=== PATIENT | female | born 1960 | race Caucasian/White ===

== ENCOUNTER 2018-04-26 16:13 | Emergency (ER) | payer MEDICARE, MEDICAID, SELFPAY ==
[2018-04-26 16:16] VITALS: BP 153/92; PULSE 95; RESP 18; TEMP 37; O2SAT 98
--- NOTE | 2018-04-26 16:39 | NUR.NOTE ---
Nursing Note: Attempted to reconcile patients medications - patient does not have list and does not recall rest of medications.
--- NOTE | 2018-04-26 17:15 | W.ED.GENAD ---
Discharge Plan Disposition Patient Disposition: HOME Condition: Improving Discharge Details Chief Complaint: HeadInjury Clinical Impression: Minor closed head injury, Contusion of multiple sites Primary Care Provider: Maylin Garcia ED Provider: Teofilo Ace Home Meds and New Rx's Prescriptions: Continue aspirin 81 mg Tablet,Chewable 1 tab PO DAILY RF: 0 lisinopril 2.5 mg Tablet 1 tab PO DAILY RF: 0 duloxetine [Cymbalta] 60 mg Capsule,Delayed Release(Dr/Ec) 1 tab PO DAILY RF: 0 Discharge Instructions Instructions: Head Injury (ED), Contusion in Adults (ED) Additional Instructions: He may continue to take [id number] Tylenol as needed for pain control and feel free to return immediately for any new or worsening symptoms. Otherwise follow-up with your primary care provider if not improving over the next 1-2 weeks Referrals: Maylin Garcia [Primary Care Provider] - (If not improving in the next 1-2 weeks please follow-up with your primary care provider for reassessment) Discharge Data Discharge Date/Time-TO BE ENTERED AT DEPARTURE: 04/26/18 18:53 Medical Decision Making MDM Narrative Medical decision making narrative: Patient presenting to the emergency department status post fall down one step. Patient states that she attempted to catch herself and landed on her left hip and hit her head during the fall. Patient denies any loss of consciousness, vomiting, vision change, numbness or tingling. She does state some lower extremity discomfort. Patient denies any chest pain syncope palpitations or shortness of breath. Physical exam is unremarkable for any head trauma, C-spine injury, chest abdomen or upper extremity injury there is concern for some significant tenderness to palpation of the left hip so plan on doing radiological imaging of the hip and pelvis but more suspect soft tissue injury/contusion. Using [place] head CT rule patient does not require CT imaging of the head which correlates with my clinical gestalt. Pending results of hip and pelvis imaging patient given Tylenol 3. After review of radiological imaging that shows no acute findings I feel the patient is suffering from closed head injury, and multiple contusions. Reassess patient patient had no significant worsening of symptoms and did state some improvement of her pain and discomfort. Patient was encouraged to return for any new or worsening symptoms otherwise follow-up with her primary care provider if not improving over the next 1-2 weeks after discussion of diagnosis plan of care patient she states over the knees, question or concerns at this time. HPI - General Adult General Mode of arrival: EMS. Date/Time Provider Initiated Documentation: 04/26/18 16:39. Limitations to Documentation: no limitations. Information obtained by: patient. History of Present Illness 57 year old F presents to the emergency department with the chief complaint of fall/headache, described as moderate, with intensity rated at 8. Quality is described as aching and sharp, and is localized to the head. Patient reports no radiation. Patient started experiencing this minute(s) (30) and it has been constant. No relieving factors improve symptom(s), No exacerbating factors reported . Patient notes no other symptoms.. Patient did receive the following treatments prior to arrival, none Related Data Home Medications Medication Instructions Recorded Confirmed aspirin 1 tab PO DAILY 04/26/18 04/26/18 duloxetine [Cymbalta] 1 tab PO DAILY 04/26/18 04/26/18 lisinopril 1 tab PO DAILY 04/26/18 04/26/18 Allergies Allergy/AdvReac Type Severity Reaction Status Date / Time amitriptyline Allergy Unverified 04/26/18 16:35 amoxicillin [From Augmentin] Allergy Unverified 04/26/18 16:35 clavulanic acid Allergy Unverified 04/26/18 16:35 [From Augmentin] Penicillins Allergy Unverified 04/26/18 16:35 Sulfa (Sulfonamide Allergy Unverified 04/26/18 16:35 Antibiotics) NSAIDS (Non-Steroidal AdvReac Unverified 04/26/18 16:35 Anti-Inflamma General Stated Complaint: HeadInjury SADE: 3 Review of Systems Constitutional Denies lethargy Eyes Patient Denies blind spots, Denies blurry vision and Denies change in vision ENT Denies vertigo, Denies dizziness, Denies ear discharge, Denies epistaxis and Denies nasal trauma Cardiovascular Denies chest pain, Denies syncope and Denies dyspnea Respiratory Denies dyspnea Gastrointestinal Denies nausea and Denies vomiting Musculoskeletal Reports radiating pain into limb (left leg) Neurologic Denies confusion, Denies vertigo, Denies dizziness and Denies syncope Psychiatric Denies confusion [facility] Medical History Diabetes (Chronic) Hypertension (Chronic) Renal insufficiency (Chronic) Social History Smoking/Tobacco Use Status: Current every day Exam [facility] Head: normal to inspection, no palpable skull fracture, normocephalic, atraumatic, no abrasions, no Gates's sign, no contusions, no hematomas, no palpable skull fracture, no raccoon eyes and no scalp tenderness Ears: hearing grossly normal bilaterally General nose exam: external nose normal Face and sinus: normal facial exam Mouth: oral mucosae normal Throat: posterior oropharynx normal Eyes General: appearance normal, both eyes and all related structures Pupils: PERRL EOM: EOM intact bilaterally Neck Neck: normal visual inspection, full ROM and nontender Chest Chest: normal inspection of the chest Resp Effort & Inspection: normal respiratory effort, able to speak in complete sentences and no respiratory distress Auscultation: clear to auscultation bilaterally and lung sounds not diminished Cardio Rate: regular rate Rhythm: regular rhythm and regular rhythm Heart Sounds: S2 normal Extrem Left lower extremity: hip/thigh Details: tenderness Location: of the hip Location: laterally, knee Details: normal to inspection and normal ROM; no tenderness, lower leg Details: normal to inspection; no tenderness and ankle Details: normal to inspection; no tenderness; abnormal ROM (Mildly decreased flexion of the hip otherwise under my equal) Course Vital Signs Temperature 37.0 C 04/26/18 16:16 Pulse 95 H 04/26/18 16:16 Respiratory Rate 18 04/26/18 16:16 Blood Pressure 153/92 H 04/26/18 16:16 Pulse Oximetry 98 04/26/18 16:16 Temperature 37.0 C 04/26/18 16:16 Pulse 95 H 04/26/18 16:16 Respiratory Rate 18 04/26/18 16:16 Blood Pressure 153/92 H 04/26/18 16:16 Pulse Oximetry 98 04/26/18 16:16
--- NOTE | 2018-04-26 17:20 | DI.RAD_ITS ---
SYMPTOMS/DIAGNOSIS: HIP PAIN S/P FALL PELVIS AND LEFT HIP: No fracture or dislocation is seen. There are mild degenerative changes of both hips. There are degenerative changes of the right SI joint. IMPRESSION: Degenerative changes. No acute abnormality.
--- NOTE | 2018-04-26 17:21 | ED.GENADUL_ITS ---
Discharge Plan Disposition Patient Disposition: HOME Condition: Improving Discharge Details Chief Complaint: HeadInjury Clinical Impression: Minor closed head injury, Contusion of multiple sites Primary Care Provider: Maylin Garcia ED Provider: Teofilo Ace Home Meds and New Rx's Prescriptions: Continue aspirin 81 mg Tablet,Chewable 1 tab PO DAILY RF: 0 lisinopril 2.5 mg Tablet 1 tab PO DAILY RF: 0 duloxetine [Cymbalta] 60 mg Capsule,Delayed Release(Dr/Ec) 1 tab PO DAILY RF: 0 Discharge Instructions Instructions: Head Injury (ED), Contusion in Adults (ED) Additional Instructions: He may continue to take [id number] Tylenol as needed for pain control and feel free to return immediately for any new or worsening symptoms. Otherwise follow-up with your primary care provider if not improving over the next 1-2 weeks Referrals: Maylin Garcia [Primary Care Provider] - (If not improving in the next 1-2 weeks please follow-up with your primary care provider for reassessment) Discharge Data Discharge Date/Time-TO BE ENTERED AT DEPARTURE: 04/26/18 18:53 Medical Decision Making MDM Narrative Medical decision making narrative: Patient presenting to the emergency department status post fall down one step. Patient states that she attempted to catch herself and landed on her left hip and hit her head during the fall. Patient denies any loss of consciousness, vomiting, vision change, numbness or tingling. She does state some lower extremity discomfort. Patient denies any chest pain syncope palpitations or shortness of breath. Physical exam is unremarkable for any head trauma, C-spine injury, chest abdomen or upper extremity injury there is concern for some significant tenderness to palpation of the left hip so plan on doing radiological imaging of the hip and pelvis but more suspect soft tissue injury/contusion. Using [place] head CT rule patient does not require CT imaging of the head which correlates with my clinical gestalt. Pending results of hip and pelvis imaging patient given Tylenol 3. After review of radiological imaging that shows no acute findings I feel the patient is suffering from closed head injury, and multiple contusions. Reassess patient patient had no significant worsening of symptoms and did state some improvement of her pain and discomfort. Patient was encouraged to return for any new or worsening symptoms otherwise follow-up with her primary care provider if not improving over the next 1-2 weeks after discussion of diagnosis plan of care patient she states over the knees, question or concerns at this time. HPI - General Adult General Mode of arrival: EMS . Date/Time Provider Initiated Documentation: 04/26/18 16:39 . Limitations to Documentation: no limitations . Information obtained by: patient . History of Present Illness 57 year old F presents to the emergency department with the chief complaint of fall/headache, described as moderate, with intensity rated at 8. Quality is described as aching and sharp, and is localized to the head. Patient reports no radiation. Patient started experiencing this minute(s) (30) and it has been constant. No relieving factors improve symptom(s), No exacerbating factors reported . Patient notes no other symptoms.. Patient did receive the following treatments prior to arrival, none Related Data Home Medications Medication Instructions Recorded Confirmed aspirin 1 tab PO DAILY 04/26/18 04/26/18 duloxetine [Cymbalta] 1 tab PO DAILY 04/26/18 04/26/18 lisinopril 1 tab PO DAILY 04/26/18 04/26/18 Allergies Allergy/AdvReac Type Severity Reaction Status Date / Time amitriptyline Allergy Unverified 04/26/18 16:35 amoxicillin [From Augmentin] Allergy Unverified 04/26/18 16:35 clavulanic acid Allergy Unverified 04/26/18 16:35 [From Augmentin] Penicillins Allergy Unverified 04/26/18 16:35 Sulfa (Sulfonamide Allergy Unverified 04/26/18 16:35 Antibiotics) NSAIDS (Non-Steroidal AdvReac Unverified 04/26/18 16:35 Anti-Inflamma General Stated Complaint: HeadInjury SADE: 3 Review of Systems Constitutional Denies lethargy Eyes Patient Denies blind spots, Denies blurry vision and Denies change in vision ENT Denies vertigo, Denies dizziness, Denies ear discharge, Denies epistaxis and Denies nasal trauma Cardiovascular Denies chest pain, Denies syncope and Denies dyspnea Respiratory Denies dyspnea Gastrointestinal Denies nausea and Denies vomiting Musculoskeletal Reports radiating pain into limb (left leg) Neurologic Denies confusion, Denies vertigo, Denies dizziness and Denies syncope Psychiatric Denies confusion [facility] Medical History Diabetes (Chronic) Hypertension (Chronic) Renal insufficiency (Chronic) Social History Smoking/Tobacco Use Status: Current every day Exam [facility] [place] Head: normal to inspection, no palpable skull fracture, normocephalic, atraumatic, no abrasions, no Gates's sign, no contusions, no hematomas, no palpable skull fracture, no raccoon eyes and no scalp tenderness Ears: hearing grossly normal bilaterally General nose exam: external nose normal Face and sinus: normal facial exam Mouth: oral mucosae normal Throat: posterior oropharynx normal Eyes General: appearance normal, both eyes and all related structures Pupils: PERRL EOM: EOM intact bilaterally Neck Neck: normal visual inspection, full ROM and nontender Chest Chest: normal inspection of the chest Resp Effort & Inspection: normal respiratory effort, able to speak in complete sentences and no respiratory distress Auscultation: clear to auscultation bilaterally and lung sounds not diminished Cardio Rate: regular rate Rhythm: regular rhythm and regular rhythm Heart Sounds: S2 normal Extrem Left lower extremity: hip/thigh Details: tenderness Location: of the hip Location: laterally, knee Details: normal to inspection and normal ROM; no tenderness, lower leg Details: normal to inspection; no tenderness and ankle Details: normal to inspection; no tenderness; abnormal ROM (Mildly decreased flexion of the hip otherwise under my equal) Course Vital Signs Temperature 37.0 C 04/26/18 16:16 Pulse 95 H 04/26/18 16:16 Respiratory Rate 18 04/26/18 16:16 Blood Pressure 153/92 H 04/26/18 16:16 Pulse Oximetry 98 04/26/18 16:16 Temperature 37.0 C 04/26/18 16:16 Pulse 95 H 04/26/18 16:16 Respiratory Rate 18 04/26/18 16:16 Blood Pressure 153/92 H 04/26/18 16:16 Pulse Oximetry 98 04/26/18 16:16
--- NOTE | 2018-04-26 17:45 | DI.VRAD_ITS ---
EXAM: XR Left Hip with Pelvis when Performed, 2 or 3 Views EXAM DATE/TIME: 04/26/2018 4:57 PM CLINICAL HISTORY: 57 years old, female; Signs and symptoms; Other: Fall, hip pain TECHNIQUE: XR Left hip with pelvis when performed, 2 or 3 views COMPARISON: No relevant prior studies available. FINDINGS: Bones/joints: Normal. No acute fracture. Soft tissues: Normal. Vasculature: Multiple pelvic phleboliths are identified. IMPRESSION: No acute findings are detected. Dictated and Authenticated by: Jovany Davalos MD. Ordering:SOFIA ISLAS MD
[2018-04-26 18:54] VITALS: BP 153/92; PULSE 95; RESP 18; TEMP 37; O2SAT 98
== END 2018-04-26 18:53 | disposition home or self-care (01) ==
PROVIDERS: Emergency Provider Nurse Practitioner Family; PCP Nurse Practitioner Family
DX: S09.8XXA Other specified injuries of head, initial encounter (principal); S70.02XA Contusion of left hip, initial encounter; W10.8XXA Fall (on) (from) other stairs and steps, initial encounter; I10 Essential (primary) hypertension; E11.9 Type 2 diabetes mellitus without complications
CPT/HCPCS: 99284; 73502

== ENCOUNTER 2018-05-10 16:25 | Emergency (ER) | payer MEDICARE, MEDICAID, SELFPAY ==
[2018-05-10 16:53] VITALS: BP 155/97; PULSE 98; RESP 16; TEMP 36.4; O2SAT 99
--- NOTE | 2018-05-10 18:20 | ED.GENADUL_ITS ---
Discharge Plan Disposition Patient Disposition: HOME Condition: Good Discharge Details Chief Complaint: Nk/Back Pain Clinical Impression: Hypomagnesemia Primary Care Provider: Maylin Garcia ED Provider: Mrutaza Lamas Home Meds and New Rx's Prescriptions: New magnesium oxide 250 mg tablet 250 mg PO DAILY Qty: 7 RF: 0 Continue aspirin 81 mg Tablet,Chewable 1 tab PO DAILY RF: 0 lisinopril 2.5 mg Tablet 1 tab PO DAILY RF: 0 duloxetine [Cymbalta] 60 mg Capsule,Delayed Release(Dr/Ec) 1 tab PO DAILY RF: 0 atorvastatin 40 mg Tablet 1 tab PO DAILY RF: 0 bupropion HCl 150 mg Tablet Extended Release 12 Hr 150 mg PO BID RF: 0 fexofenadine 180 mg Tablet 180 mg PO DAILY RF: 0 insulin aspart U-100 [Novolog PenFill U-100 Insulin] 100 unit/mL Cartridge 40 unit subcut DAILY RF: 0 insulin glargine [Basaglar KwikPen U-100 Insulin] 100 unit/mL (3 mL) Insulin Pen 40 unit subcut DAILY RF: 0 dexlansoprazole [Dexilant] 60 mg Capsule,Biphase Delayed Releas 1 tab PO DAILY RF: 0 Discharge Instructions Instructions: Hypomagnesemia (ED) Additional Instructions: Follow-up with Idalmis Garcia this week for recheck. Call for an appointment time. Continue all regularly prescribed medications. Return to the emergency department for any acute concerns Discharge Data Discharge Date/Time-TO BE ENTERED AT DEPARTURE: 05/11/18 02:32 Medical Decision Making <WHIT [place] - Last Filed: 05/22/18 20:43> [facility] Narrative Medical decision making narrative: Patient presents with cc of HERNANDEZ and right SI joint pain. She reports that the HERNANDEZ has waxed and waned since fall 12 days ago. He was evaluated here, I reviewed ER notes from that time. On exam, her neuro exam is intact. She appears chronically unwell. She has history of DM and stage III CKD. States that she does not take NSAIDS secondary to the affect they have had on her CKD. Was advised to use Tylenol. Has not taken any today. On exam, the SI joint is point of maximal pain with palpable muscle spasm. Will give Tylenol and apply Lidoderm patch. With the chronicity of her HERNANDEZ as well as the waxing and waning symptoms, I do not suspect bleed. No sudden onset or change in symptoms. Patient is not anticoagulated. She is also endorsing generalized feeling of unwell and weakness. No focal area of weakness was noted on exam. Will obtain base line laboratory evaluation. Labs significant for magnesium of 1.1. She reports that she has history of low magnesium, associated with her CKD, and takes daily oral magnesium supplementation. When I re-evaluated the patient, she is now endorsing tingling that was occuring prior to her arrival. When I had first evaluated her, she was not endorsing any altered sensation. However, she is now stating that she had tingling fairly diffusely, worse on the right side. Reports that this lasted for several hours today but subsided prior to her presentation, states she forgot to discuss this initially. Discussed case with Dr. Baker. He advised admission for low magnesium. Discussed case with Dr. Saenz. He was able to show literature regarding admission for low magnesium. As she does not exibit cardiac pathology, has not had any seizure pathology and her associated symtpoms have since resolved, he advised replenishing magnesium and discharging the patient. Advised 4G of IV magnesium here followed by 800mg QD. Advised follow up for recheck within the next 48hours to be follow by PCP. Patient is receiving IV hydration, 4G of IVmagnesium. At the end of my shift, patient is receiving above. Discussed case with Dr. Lamas who will assume care. <Murtaza Lamas MD - Last Filed: 05/11/18 02:09> [facility] Narrative Medical decision making narrative: Received signout from Ms. Fields. Please see her note regarding details of the initial history, presentation, exam and plan of care. Patient observed over approximately 10 hours in the emergency department with magnesium supplementation. She is stable and improved. Appropriate for discharge to home HPI - General Adult <WHIT [place] - Last Filed: 05/22/18 20:43> General Mode of arrival: ambulatory . Date/Time Provider Initiated Documentation: 05/10/18 17:56 . Limitations to Documentation: no limitations . Information obtained by: patient . HPI Narrative: Patient is a 57-year-old female presenting today with multiple complaints. Patient was seen here on 04/26/18 after fall. At that time, the patient reports that she misstepped and fell down one step. Reports that she struck the front of her head. Also was complaining of right-sided hip pain at that time. States that what she had initially been improving, her headache and right posterior hip pain returned again yesterday. Since that time she has been feeling weak. Denies any chest pain or shortness of breath. States that her headache has waxed and waned since her initial fall. She denies any visual changes. Patient reports that since having cataract surgery a few years ago her pupils are no longer reactive to light stimuli. She denies any fevers or chills. No nausea or vomiting. No GI upset. No change in bowel or bladder habits. Denies any sensation deficits in her lower extremities. Feels like she is having a global discomfort and global weakness. Reports that she is unable to take anti-inflammatory secondary to her kidney dysfunction. Has been using Tylenol with minimal relief. Has not been seen as of yet by her primary care physician since her fall. Related Data Home Medications Medication Instructions Recorded Confirmed aspirin 1 tab PO DAILY 04/26/18 05/10/18 duloxetine [Cymbalta] 1 tab PO DAILY 04/26/18 05/10/18 lisinopril 1 tab PO DAILY 04/26/18 05/10/18 atorvastatin 1 tab PO DAILY 05/10/18 05/10/18 bupropion HCl 150 mg PO BID 05/10/18 05/10/18 dexlansoprazole [Dexilant] 1 tab PO DAILY 05/10/18 05/10/18 fexofenadine 180 mg PO DAILY 05/10/18 05/10/18 insulin aspart U-100 [Novolog 40 unit SUBCUT DAILY 05/10/18 05/10/18 PenFill U-100 Insulin] insulin glargine [Basaglar KwikPen 40 unit SUBCUT DAILY 05/10/18 05/10/18 U-100 Insulin] magnesium oxide 250 mg PO DAILY #7 tab 05/11/18 Previous Rx's Medication Instructions Recorded magnesium oxide 250 mg PO DAILY #7 tab 05/11/18 Allergies Allergy/AdvReac Type Severity Reaction Status Date / Time amitriptyline Allergy Unverified 05/10/18 16:57 amoxicillin [From Augmentin] Allergy Unverified 05/10/18 16:57 clavulanic acid Allergy Unverified 05/10/18 16:57 [From Augmentin] Penicillins Allergy Unverified 05/10/18 16:57 Sulfa (Sulfonamide Allergy Unverified 05/10/18 16:57 Antibiotics) NSAIDS (Non-Steroidal AdvReac Unverified 05/10/18 16:57 Anti-Inflamma General Stated Complaint: Nk/Back Pain SADE: 3 Review of Systems <WHIT [place] Last Filed: 05/22/18 20:43> Constitutional Reports as per HPI, Reports body ache(s), Denies chills, Reports fatigue, Denies fever(s), Denies frequent falls, Reports headache(s) and Denies poor appetite Eyes Patient Denies blurry vision and Denies change in vision ENT Reports headache(s) Cardiovascular Denies chest pain, Denies chest pain at rest, Denies chest pain with activity, Denies irregular heart rhythm, Denies lightheadedness, Denies dyspnea and Denies dyspnea on exertion Respiratory Denies cough, Denies dyspnea and Denies dyspnea on exertion Gastrointestinal Denies change in bowel habits, Denies fecal incontinence and Denies nausea Genitourinary Reports system reviewed and no additional complaints, except as docu (no change in urinary habits) and Denies urinary incontinence Musculoskeletal Reports as per HPI, Reports abnormal gait (patient ambulates with cane at baseline), Denies joint swelling, Reports muscle cramps (right lower back pain ) , Denies muscle weakness, Denies numbness, Denies radiating pain into limb and Denies tingling Integumentary/Breasts Denies rash Neurologic Reports as per HPI, Denies abnormal movements, Denies abnormal speech, Reports abnormal gait (patient ambulates with cane at baseline), Denies frequent falls, Reports headache(s), Denies numbness, Denies radicular pain, Denies sensory deficit, Denies tingling and Denies paresthesias Endocrine Reports fatigue Exam <WHIT [place] - Last Filed: 05/22/18 20:43> Const General: cooperative, no acute distress and frail appearing Nutritional Appearance: overweight Orientation: alert and awake Eyes General: appearance normal, both eyes and all related structures (patient has no pupillary reflex but she reports this is typical and associates with post surgical changes) Resp Effort & Inspection: normal respiratory effort, able to speak in complete sentences and no respiratory distress Auscultation: clear to auscultation bilaterally Cardio Rate: regular rate Rhythm: regular rhythm Heart Sounds: S1 normal and S2 normal Back/Spine/Pelvis Back: no CVA tenderness Thoracic/Lumbar Spine: No thoracic and lumbar spine normal to inspection ( Patient has discomfort near L4, she reports this is chronic. Pain is maximal over the right SI joint. Palpable muscle spasm over this area. No ecchymosis, discoloration. No step off palpable. ) Pelvis: no pain with anterior-posterior compression Sacroiliac joints: on the right Sacrum: no ecchymosis and no erythema Skin General skin exam: no rashes or lesions noted Neuro General: alert, awake, oriented x3 and no meningeal signs Cranial Nerves: CN's II-XI intact bilaterally (pupillary deficit as noted above) Cognition: normal cognition Speech: speech normal Gait: gait assisted (patient ambulating with cane) Motor: muscle tone normal throughout, strength 5/5 throughout and no fasciculations Sensory Exam: no sensory deficits noted (no saddle paresthesias) DTR's: Rt Patellar: 2+, Lt Patellar: 2+, Rt Ankle: 1+ and Lt Ankle: 1+ Coordination: [id number] test normal and [id number] test normal (patient is slow to do this but is able to do so, equal bilaterally) Extrem General: normal to inspection Course <WHIT [place] - Last Filed: 05/22/18 20:43> Vital Signs Temperature 36.4 C L 05/10/18 16:53 Pulse 98 H 05/10/18 16:53 Respiratory Rate 16 05/10/18 16:53 Blood Pressure 155/97 H 05/10/18 16:53 Pulse Oximetry 99 05/10/18 16:53 Temperature 36.4 C L 05/10/18 16:53 Pulse 98 H 05/10/18 16:53 Respiratory Rate 16 05/10/18 16:53 Blood Pressure 155/97 H 05/10/18 16:53 Pulse Oximetry 99 05/10/18 16:53 Sign Out <WHIT [place] - Last Filed: 05/22/18 20:43> Sign Out Data: Sign Out Comment: Magnesium replenishment pending. Care signed out to Dr. Lamas. Last updated by Harini Fields PA at 05/10/18 23:20
[2018-05-10 19:03] LABS: Abs Immature Grans 0.02 k/cumm (0.0-0.09); Absolute Basophil Count 0.05 k/cumm (0.0-0.2); Absolute Eosinophil Count 0.14 k/cumm (0.0-0.7); Absolute Lymphocyte Count 2.65 k/cumm (1.2-3.4); Absolute Monocyte Count 0.42 k/cumm (0.11-0.7); Absolute Neutrophil Count 3.69 k/cumm (1.2-6.7); Basophils % 0.7; HCT 34.9 % (36.0-46.0); HGB 12.1 g/dL (12.0-15.5); Immature Grans % 0.3; Mean Corp. HGB Concentration 34.7 g/dL (32.0-36.0); Mean Corpuscular Hemoglobin 31.3 pg (27.0-33.0); Mean Corpuscular Volume 90.4 fL (80-95); Mean Platelet Volume 9.9 fL (8.0-11.0); Platelet Count 270 x1000/uL (130-400); RBC 3.86 m/cumm (4.00-5.20); RBC Distribution Width 12.8 % (11.7-14.6); White Blood Cell Count 6.97 k/cumm (4.4-10.8)
[2018-05-10] MEDS: Acetaminophen 500 MG TAB 1000 MG PO (19:18)
[2018-05-10] MEDS: Lidocaine 5% Patch 1 PATCH TP (19:18)
[2018-05-10 19:40] LABS: ALT 19 U/L (12-78); AST 15 U/L (15-37); Albumin 3.3 g/dL (3.4-5.0); Alkaline Phosphatase 100 U/L (46-116); Anion Gap 9.4 mmol/L (3-11); BUN 29 mg/dL (7-18); Bilirubin, Total 0.3 mg/dL (0.2-1.0); CO2 26.6 mmol/L (21.0-32.0); CREATININE 1.42 mg/dL (0.55-1.02); Calcium 8.7 mg/dL (8.5-10.1); Chloride 108 mmol/L (98-107); Estimated GFR 38.13 (mL/min/1.73m2); Glucose 75 mg/dL (70-100); Magnesium 1.1 mg/dL (1.8-2.4); Potassium 3.9 mmol/L (3.5-5.1); Sodium 144 mmol/L (136-145); Total Protein 7.5 g/dL (6.4-8.2)
[2018-05-10 19:41] LABS: Troponin I < 0.02 ng/mL (0.00-0.06)
[2018-05-10 20:25] VITALS: PULSE 90; RESP 18; TEMP 36.5; O2SAT 98
[2018-05-10 21:50] VITALS: BP 139/77; PULSE 85; RESP 18; O2SAT 99
[2018-05-10] MEDS: MAGNESIUM SULFATE 2 GM/50 ML BAG IVPB ×2 (21:51→23:51)
[2018-05-10] MEDS: Normal Saline 250 ML IV (21:51)
[2018-05-11] VITALS (8 sets, daily range): BP systolic 133; BP diastolic 66; PULSE 77–88; RESP 10–19; TEMP 36.9; O2SAT 97–100
[2018-05-11] MEDS: Acetaminophen 500 MG TAB 650 MG PO (00:39)
== END 2018-05-11 02:32 | disposition home or self-care (01) ==
PROVIDERS: Physician Assistant; Emergency Provider Emergency Medicine; PCP Nurse Practitioner Family
DX: E83.42 Hypomagnesemia (principal); M62.830 Muscle spasm of back; E11.22 Type 2 diabetes mellitus with diabetic chronic kidney disease; Z79.4 Long term (current) use of insulin; I12.9 Hypertensive chronic kidney disease with stage 1 through stage 4 chronic kidney disease, or unspecified chronic kidney disease; N18.3 Chronic kidney disease, stage 3 (moderate)
CPT/HCPCS: 36416; 80053; 82962; 96361; 96365; 96366; 99284; 83735; 84484; 85025

== ENCOUNTER → 2018-06-25 14:09 | Outpatient (BNVA) | payer MEDICARE, MEDICAID, SELFPAY | PROVIDERS: PCP Nurse Practitioner Family; Visit Provider Internal Medicine Cardiovascular Disease | DX: I25.10 Atherosclerotic heart disease of native coronary artery without angina pectoris (principal); Z98.61 Coronary angioplasty status; J44.9 Chronic obstructive pulmonary disease, unspecified; F17.210 Nicotine dependence, cigarettes, uncomplicated; E10.22 Type 1 diabetes mellitus with diabetic chronic kidney disease; N18.9 Chronic kidney disease, unspecified; E78.5 Hyperlipidemia, unspecified | CPT/HCPCS: 99213 ==

== ENCOUNTER 2018-06-29 14:58 | Outpatient (RCR) | payer SELFPAY | END 2018-07-24 23:59 | disposition home or self-care (01) | LOC: CR 14:58 | PROVIDERS: PCP Nurse Practitioner Family; Visit Provider Family Medicine | DX: Z51.89 Encounter for other specified aftercare (principal) ==

== ENCOUNTER 2018-07-01 15:52 | Emergency (ER) | payer MEDICARE, MEDICAID, SELFPAY ==
[2018-07-01 16:09] VITALS: BP 132/80; PULSE 90; RESP 18; TEMP 36.5; O2SAT 95
[2018-07-01 16:46] LABS: Clarity Sl Cloudy
[2018-07-01 16:48] LABS: Bacteria Moderate HPF (Negative); Crystals Negative HPF (Negative); Epithelial Cells Many HPF (Negative); Mucus Negative (Negative); Other Cells Negative (Negative); RBC >50 (0-2); WBC >50 HPF (0-5)
[2018-07-01 16:49] LABS: Casts Negative LPF (Negative)
[2018-07-01 16:55] LABS: C & S Indicated? No/Sq. Contamination
--- NOTE | 2018-07-01 18:47 | DI.CT_ITS ---
SYMPTOM/DIAGNOSIS: RT FLANK PAIN, ? RENAL STONE RENAL COLIC CT: The superior aspect of the liver and stomach are incompletely imaged. The study was carried out according to the usual protocol as a renal colic CT examination. No acute abnormality involving the lung bases is seen. There is a questionable appearance of the liver which could be a normal variation. The findings should be correlated regarding the possibility of hemochromatosis. The patient is status post cholecystectomy. There is mild bilateral perinephric stranding. The right ureter is difficult to follow in the pelvis with calcifications noted consistent with multiple phleboliths. There is no evidence of bowel obstruction. There is a moderate quantity of stool throughout the colon which may be seen in constipation. There is no evidence of an acute appendix. IMPRESSION: Mild perinephric nonspecific perirenal stranding. No definite ureteral calculus or evidence of hydroureter or hydronephrosis is seen. Question increased density in the liver which could possibly represent hemochromatosis. Clinical and laboratory correlation is suggested. There is no acute abnormality involving the lung bases.
--- NOTE | 2018-07-01 18:51 | ED.GENADUL_ITS ---
Discharge Plan Disposition Patient Disposition: HOME Condition: Stable Discharge Details Chief Complaint: Urinary Clinical Impression: Pyelonephritis, UTI (urinary tract infection) Reason For Visit: urinary Primary Care Provider: Maylin Garcia ED Provider: Adilene Tinsley Home Meds and New Rx's Prescriptions: New levofloxacin 750 mg tablet 750 mg PO DAILY 4 Days Qty: 4 RF: 0 Continue lorazepam [Ativan] 0.5 mg tablet 0.5 mg PO DAILY PRNRF: 0 albuterol sulfate 1.25 MG/3 ML solution for nebulization 2.5 mg Inhalation QID PRNRF: 0 albuterol sulfate [ProAir HFA] 8.5 GM HFA aerosol inhaler 2 puff Inhalation Q4H PRN RF: 0 duloxetine [Cymbalta] 30 MG capsule,delayed release(DR/EC) 30 mg PO DAILY RF: 0 nicotine 1 EACH patch 24 hour 21 mg Transdermal DAILY 30 Days Qty: 30 RF: 3 zolpidem 10 MG tablet 10 mg PO HS RF: 0 duloxetine [Cymbalta] 60 MG capsule,delayed release(DR/EC) 60 mg PO DAILY RF: 0 dexlansoprazole [Dexilant] 60 mg capsule,biphase delayed releas 60 mg PO DAILY RF: 0 magnesium oxide 250 mg tablet 800 mg PO BID RF: 0 bupropion HCl [Wellbutrin SR] 150 MG tablet extended release 12 hr 300 mg PO BID RF: 0 fexofenadine 60 MG tablet 60 mg PO DAILY RF: 0 nitroglycerin [Nitrostat] 0.4 MG tablet, sublingual 0.4 mg Sublingual PRN PRNRF: 0 atorvastatin [Lipitor] 40 MG tablet 40 mg PO QPM Qty: 30 RF: 0 aspirin 81 MG tablet,delayed release (DR/EC) 81 mg PO DAILY Qty: 30 RF: 0 lisinopril 5 MG tablet 2.5 mg PO QAM Qty: 30 RF: 0 insulin aspart U-100 [Novolog Flexpen U-100 Insulin] 300 UNITS/3 ML insulin pen Sub-Q 0800,1200,1700 Qty: 1 RF: 1 insulin glargine [Lantus Solostar U-100 Insulin] 300 UNITS/3 ML insulin pen 40 units Sub-Q HS RF: 0 phenazopyridine [Pyridium] 200 mg Tablet 200 mg PRN PRNRF: 0 Discharge Instructions Instructions: Urinary Tract Infection in Women (ED), Kidney Infection (ED) Additional Instructions: Take the antibiotics until finished. Take your regular medications as directed. Call your primary care doctor tomorrow to schedule a follow-up appointment for re-evaluation. Follow-up with the primary care doctor in 1 week for reevaluation. Discharge Data Discharge Physician: Adilene Tinsley Medical Decision Making 58-year-old female with history of diabetes, coronary artery disease, [place] who presents with dysuria, lower abdominal pain, and lower back pain since yesterday. Has recent urinary tract infections and states this feels similar. Last on Cipro 2 months ago. Denies fever, nausea, vomiting, chest pain, shortness of breath. Vitals within normal limits. Afebrile. Patient appears nontoxic and in no acute distress. Abdomen tender in suprapubic and right lower quadrant. She has a history of cholecystectomy and appendectomy. Differential diagnosis includes UTI, pyelonephritis, kidney stone. Will place an IV, fluids, labs and CT renal colic. She states she has a history of chronic kidney disease and cannot take NSAIDs. She is refusing pain meds including Tylenol at this time. 2100: Labs reviewed and note greater than 50 WBCs and greater than 50 RBCs but this appears contaminated. With patient's symptom presentation, will treat for UTI. Remainder of labs note a white blood cell count of 10, hemoglobin of 10, creatinine 1.35 and GFR 40 which appears improved from baseline. CT renal colic noted mild bilateral perinephric stranding which can be seen with infection which is likely consistent with pyelonephritis. The right ureter was difficult to follow into the pelvis but there were noted calcifications appeared to be extra ureteral as no hydroureter noted. Opacities in the lung bases noted - Patient has no cough, chest pain or shortness of breath. 2135 -- d/w vrad -states calcifications appear likely extra urinal as there is no hydroureter, which is not c/w kidney stone. 0 --patient is complaining of some return of pain in the lower abdomen and states she feels like her Pyridium is wearing off. She appears uncomfortable. Discussed with patient that her symptoms are likely UTI versus pyelonephritis and at this point time does not appear consistent with kidney stone based on CT findings. Patient has tenderness to palpation in her abdomen which is usually consistent with kidney stone. Dose of oxycodone and Pyridium given. Patient was offered admission but she declines. HPI General Mode of arrival: ambulatory . Date/Time Provider Initiated Documentation: 07/01/18 17:03 . Limitations to Documentation: no limitations . Information obtained by: patient . HPI Narrative: Patient is a 58-year-old female who presents with right lower back pain since yesterday dysuria and lower abdominal pain since this morning. Patient states the abdominal pain feels aching and sharp and consistent with her previous urinary tract infections. She took 2 doses of Pyridium today with some relief. She states she was last on Cipro for UTI 2 months ago. She denies fever, nausea, vomiting, chest pain, shortness of breath. Past medical history: Type I DM, OA, CAD, Anxiety, Depression, [place], HTN Surgical history: Appendectomy, Cardiac stents, Cholecystectomy, , Tubal ligation Social history: Smokes tobacco, Denies alcohol or drugs Meds: See list Allergies: PCN, Sulfa PCP: Salome Garcia Related Data Home Medications Medication Instructions Recorded Confirmed duloxetine [Cymbalta] 60 mg PO DAILY 12/19/15 07/01/18 zolpidem 10 mg PO HS 12/19/15 07/01/18 bupropion HCl [Wellbutrin SR] 300 mg PO BID 02/18/16 07/01/18 nitroglycerin [Nitrostat] 0.4 mg SUBLINGUAL PRN PRN 06/01/17 07/01/18 aspirin 81 mg PO DAILY #30 tab 06/04/17 07/01/18 atorvastatin [Lipitor] 40 mg PO QPM #30 tab 06/04/17 07/01/18 insulin aspart U-100 [Novolog 0 units SUB-Q 0800,1200,1700 #1 ea 06/04/17 Flexpen U-100 Insulin] lisinopril 2.5 mg PO QAM #30 tab 06/04/17 07/01/18 albuterol sulfate 2.5 mg INHALATION QID PRN ml 07/10/17 06/25/18 albuterol sulfate [ProAir HFA] 2 puff INHALATION Q4H PRN inhaler 07/10/1707/01 fexofenadine 60 mg PO DAILY 10/09/17 07/01/18 duloxetine [Cymbalta] 30 mg PO DAILY 10/22/17 07/01/18 nicotine 21 mg TRANSDERMAL DAILY 30 Days 12/26/17 07/01/18 #30 patch insulin glargine [Lantus Solostar 40 units SUB-Q HS 03/01/18 07/01/18 U-100 Insulin] dexlansoprazole 60 mg 60 mg PO DAILY cap 06/25/18 07/01/18 capsule,biphase delayed release lorazepam 0.5 mg tablet 0.5 mg PO DAILY PRN tab 06/25/18 07/01/18 magnesium oxide 250 mg tablet 800 mg PO BID 06/25/18 07/01/18 levofloxacin 750 mg PO DAILY 4 Days #4 tab 07/01/18 phenazopyridine [Pyridium] 200 mg PRN PRN 07/01/18 07/01/18 Previous Rx's Medication Instructions Recorded aspirin 81 mg PO DAILY #30 tab 06/04/17 atorvastatin [Lipitor] 40 mg PO QPM #30 tab 06/04/17 insulin aspart U-100 [Novolog 0 units SUB-Q 0800,1200,1700 #1 ea 06/04/17 Flexpen U-100 Insulin] lisinopril 2.5 mg PO QAM #30 tab 06/04/17 nicotine 21 mg TRANSDERMAL DAILY 30 Days 12/26/17 #30 patch levofloxacin 750 mg PO DAILY 4 Days #4 tab 07/01/18 Allergies Allergy/AdvReac Type Severity Reaction Status Date / Time Penicillins Allergy Unverified 07/01/18 16:37 Sulfa (Sulfonamide Allergy Unverified 07/01/18 16:37 Antibiotics) amitriptyline AdvReac made my Unverified 07/01/18 16:37 face go numb amoxicillin trihydrate AdvReac acute Unverified 07/01/18 16:37 [From Augmentin] kidney failure NSAIDS (Non-Steroidal AdvReac stage III Unverified 07/01/18 16:37 Anti-Inflamma kidney disease potassium clavulanate AdvReac acute Unverified 07/01/18 16:37 [From Augmentin] kidney failure General Stated Complaint: Urinary SADE: 3 Review of Systems Review of Systems All systems reviewed & are unremarkable except as noted in HPI and below Constitutional Denies chills, Denies excessive sweating, Denies fatigue, Denies fever(s), Denies weakness and Denies weight loss Eyes Reports system reviewed and no additional complaints, except as docu and Denies blurry vision ENT Denies vertigo, Denies dizziness, Denies otalgia, Denies nasal congestion, Denies sore throat and Denies throat swelling Cardiovascular Denies chest pain, Denies syncope, Denies rapid heart rate and Denies dyspnea Respiratory Denies dyspnea Gastrointestinal Reports abdominal pain, Denies diarrhea and Denies vomiting Genitourinary Denies hematuria, Reports dysuria and Denies flank pain Musculoskeletal Reports back pain and Denies joint swelling Integumentary/Breasts Denies lesions and Denies rash Neurologic Denies behavioral changes, Denies confusion, Denies vertigo, Denies dizziness, Denies syncope and Denies weakness Psychiatric Denies behavioral changes, Denies confusion and Denies depression Endocrine Denies excessive sweating and Denies fatigue Hematologic/Lymphatic Denies easy bruising and Denies lymphadenopathy Allergic/Immunologic Denies throat swelling [facility] Family History Grandmother No problems noted. Medical History Depression Diabetes Insomnia Social History Smoking/Tobacco Use Status: Current every day Surgical History Appendectomy section Cholecystectomy Coronary Stent Exam Const General: cooperative and healthy appearing Orientation: alert and awake [facility] Head: normal to inspection Ears: hearing grossly normal bilaterally and external ears normal General nose exam: external nose normal Face and sinus: normal facial exam Mouth: oral mucosae normal Teeth and gingiva: dentition normal Throat: posterior oropharynx normal Eyes General: appearance normal, both eyes and all related structures Eyelids: eyelids normal EOM: EOM intact bilaterally Neck Neck: normal visual inspection Lymphatic: no lymphadenopathy noted Chest Chest: normal inspection of the chest Resp Effort & Inspection: normal respiratory effort and able to speak in complete sentences Auscultation: clear to auscultation bilaterally Cardio Rate: regular rate Rhythm: regular rhythm GI Inspection: normal to inspection Palpation: soft, not firm, no guarding, no hepatosplenomegaly, no masses and tender in the RLQ and suprapubicly Auscultation: normal bowel sounds Back/Spine/Pelvis Back: no CVA tenderness Skin General skin exam: no rashes or lesions noted Neuro General: alert and awake Cognition: normal cognition Speech: speech normal Gait: normal gait Motor: muscle tone normal throughout Sensory Exam: no sensory deficits noted Extrem General: normal to inspection, full ROM and normal capillary refill Psych Appearance: grossly normal Mental Status: mental status grossly normal Speech and Movement: speech and movement normal Affect: normal affect Thought Process: normal Course Vital Signs Temperature 97.7 F 07/01/18 16:09 Pulse 90 07/01/18 16:09 Respiratory Rate 18 07/01/18 16:09 Blood Pressure 132/80 07/01/18 16:09 Pulse Oximetry 95 07/01/18 16:09 Temperature 97.7 F 07/01/18 16:09 Temperature Source Temporal Artery Scan 07/01/18 16:09 Pulse 90 07/01/18 16:09 Respiratory Rate 18 07/01/18 16:09 Respiratory Effort 07/01/18 16:13 Blood Pressure 132/80 07/01/18 16:09 Blood Pressure Position Sitting 07/01/18 16:09 Pulse Oximetry 95 07/01/18 16:09 Oxygen Delivery Method Room Air 07/01/18 16:09 Oxygen Flow Rate 0 07/01/18 16:09 Lab/Test Results Lab/Test Results: Laboratory Tests Range/Units 07/01/18 15:50 Urine Color (Yellow) Transfer Urine Clarity Sl cloudy Urine pH Not Applicable Ur Specific [place] (1.005-1.025) 1.010 Urine Protein Not Applicable Urine Ketones Not Applicable Urine Blood (Negative) Urine Nitrite Not Applicable Urine Bilirubin Not Applicable Urine Urobilinogen Not Applicable Ur Leukocyte Esterase Not Applicable Urine RBC (0-2) >50 H Urine WBC (0-5) HPF >50 Ur Epithelial Cells (Negative) HPF Many Urine Crystals (Negative) HPF Negative Urine Bacteria (Negative) HPF Moderate Urine Casts (Negative) LPF Negative Urine Mucus (Negative) Negative Urine Other (Negative) Negative Ur Culture Indicated? No/sq. contamination Urine Glucose Not Applicable
[2018-07-01] MEDS: Normal Saline 1,000 ML 1000 ML IV (19:31)
--- NOTE | 2018-07-01 19:54 | DI.VRAD_ITS ---
EXAM: CT Abdomen and Pelvis Without Intravenous Contrast EXAM DATE/TIME: 07/01/2018 6:50 PM CLINICAL HISTORY: 58 years old, female; Pain; Other: Flank pain TECHNIQUE: Axial computed tomography images of the abdomen and pelvis without intravenous contrast. Coronal and sagittal reformatted images were created and reviewed. COMPARISON: No relevant prior studies available. FINDINGS: Limitations: The superior aspect of the liver and stomach are incompletely imaged. Evaluation of the intra-abdominal organs and vasculature is limited secondary to the lack of IV contrast. Evaluation of the bowel is limited secondary to the lack of oral contrast. Lower thorax: There is some possible tree in bud opacities at the lung bases and reticular opacities at the lung bases which should be correlated with any concern for bronchiolitis. ABDOMEN: Liver: The liver has a slightly dense appearance with portions measuring up to 63 Hounsfield units. Average for unenhanced liver is 55 Hounsfield units. This may represent normal variation. Finding should be correlated with any concern for hemochromatosis. Gallbladder and bile ducts: Cholecystectomy clips. Pancreas: Normal. No ductal dilation. Spleen: Normal. No splenomegaly. Adrenals: Normal. No mass. Kidneys and ureters: There is mild bilateral perinephric stranding. The right ureter is difficult to follow into the pelvis with calcifications noted along the expected course. These are favored to be extra-ureteral as no hydroureter is seen. However, correlation suggested. Stomach and bowel: No evidence of bowel obstruction. Moderate stool throughout the colon which can be seen with constipation. Appendix: Appendix not clearly seen. PELVIS: Bladder: Underdistended and not well assessed. Reproductive: The uterus is present. No large adnexal masses. ABDOMEN and PELVIS: Intraperitoneal space: Normal. No free air. No significant fluid collection. Bones/joints: Skeletal degenerative changes. Soft tissues: Unremarkable. Vasculature: Vascular calcifications. Lymph nodes: Normal. No enlarged lymph nodes. IMPRESSION: 1. Mild bilateral perinephric stranding. This is a nonspecific finding that can be seen chronically or with infection. 2.The right ureter is difficult to follow into the pelvis with calcifications noted along the expected course. These are favored to be extra-ureteral as no hydroureter is seen. However, correlation suggested. 3. Mildly dense appearance to the liver which should be correlated with any concern for early hemochromatosis. 4. Possible tree in bud opacities and reticular opacities at the lung bases which can be seen with infection/bronchiolitis in the appropriate clinical setting. Findings suggestive of constipation. Other findings as above. Dictated and Authenticated by: Diamond Xiao MD. Ordering:LARA DE LOS SANTOS MD
[2018-07-01 19:57] LABS: ALT 16 U/L (12-78); AST 13 U/L (15-37); Alkaline Phosphatase 72 U/L (46-116); Anion Gap 9.2 mmol/L (3-11); BUN 23 mg/dL (7-18); Bilirubin, Total 0.3 mg/dL (0.2-1.0); CO2 24.8 mmol/L (21.0-32.0); CREATININE 1.35 mg/dL (0.55-1.02); Calcium 8.5 mg/dL (8.5-10.1); Chloride 108 mmol/L (98-107); Estimated GFR 40.28 (mL/min/1.73m2); Glucose 70 mg/dL (70-100); Potassium 3.9 mmol/L (3.5-5.1); Sodium 142 mmol/L (136-145); Total Protein 6.4 g/dL (6.4-8.2)
[2018-07-01 20:09] LABS: Abs Immature Grans 0.04 k/cumm (0.0-0.09); Absolute Basophil Count 0.05 k/cumm (0.0-0.2); Absolute Eosinophil Count 0.16 k/cumm (0.0-0.7); Absolute Lymphocyte Count 2.56 k/cumm (1.2-3.4); Absolute Monocyte Count 0.54 k/cumm (0.11-0.7); Absolute Neutrophil Count 6.65 k/cumm (1.2-6.7); Basophils % 0.5; Eosinophils % 1.6; HCT 31.4 % (36.0-46.0); HGB 10.5 g/dL (12.0-15.5); Immature Grans % 0.4; Lymphocytes % 25.6; Mean Corp. HGB Concentration 33.4 g/dL (32.0-36.0); Mean Corpuscular Hemoglobin 31.3 pg (27.0-33.0); Mean Corpuscular Volume 93.7 fL (80-95); Mean Platelet Volume 9.7 fL (8.0-11.0); Monocytes % 5.4; Neutrophils % 66.5; Platelet Count 250 x1000/uL (130-400); RBC 3.35 m/cumm (4.00-5.20); RBC Distribution Width 12.7 % (11.7-14.6)
[2018-07-01] MEDS: LEVOFLOXACIN 500 MG, LEVOFLOXACIN 250 MG 750 MG PO (20:25)
[2018-07-01] MEDS: Acetaminophen 325 MG TAB (21:44)
[2018-07-01 21:48] VITALS: BP 150/70; PULSE 107; RESP 18; TEMP 36.3; O2SAT 96
[2018-07-01 22:04] VITALS: PULSE 96; O2SAT 96
[2018-07-01] MEDS: oxyCODONE 5 MG TAB PO ×3 (22:33→23:47)
[2018-07-01 22:57] VITALS: BP 150/74; PULSE 103; RESP 28; TEMP 36.7; O2SAT 98
[2018-07-01] MEDS: Phenazopyridine 100 MG TAB PO (23:05)
[2018-07-01 23:44] VITALS: BP 150/71; PULSE 100; RESP 18; O2SAT 97
[2018-07-01] MEDS: oxyCODONE 5 MG TAB (23:48)
== END 2018-07-01 23:50 | disposition home or self-care (01) ==
PROVIDERS: Emergency Provider Physician Assistant; PCP Nurse Practitioner Family
DX: N10 Acute pyelonephritis (principal); N39.0 Urinary tract infection, site not specified; Z87.440 Personal history of urinary (tract) infections; E11.9 Type 2 diabetes mellitus without complications; Z79.4 Long term (current) use of insulin
CPT/HCPCS: 36415; 36416; 80053; 82962; 96360; 99284; 74176; 81003; 81015; 85025; 87086

== ENCOUNTER 2018-10-28 23:16 | Emergency (ER) | payer MEDICARE, MEDICAID, SELFPAY ==
[2018-10-28 23:21] VITALS: BP 146/71; PULSE 102; RESP 18; TEMP 36.6; O2SAT 98
--- NOTE | 2018-10-28 23:32 | ED.GENADUL_ITS ---
Discharge Plan Disposition Patient Disposition: HOME Condition: Stable Discharge Details Chief Complaint: GenMedical Clinical Impression: Headache, Anxiety Primary Care Provider: Maylin Garcia ED Provider: Branden Sequeira Home Meds and New Rx's Prescriptions: No Action lorazepam [Ativan] 0.5 mg tablet 0.5 mg PO DAILY PRNRF: 0 albuterol sulfate 1.25 MG/3 ML solution for nebulization 2.5 mg Inhalation QID PRNRF: 0 albuterol sulfate [ProAir HFA] 8.5 GM HFA aerosol inhaler 2 puff Inhalation Q4H PRN RF: 0 zolpidem 10 MG tablet 10 mg PO HS RF: 0 duloxetine [Cymbalta] 60 MG capsule,delayed release(DR/EC) 60 mg PO DAILY RF: 0 nitroglycerin [Nitrostat] 0.4 MG tablet, sublingual 0.4 mg Sublingual PRN PRNRF: 0 atorvastatin [Lipitor] 40 MG tablet 40 mg PO QPM Qty: 30 RF: 0 Novolog Flexpen U-100 Insulin 300 UNITS/3 ML insulin pen Sub-Q 0800,1200,1700 Qty: 1 RF: 1 Lantus Solostar U-100 Insulin 300 UNITS/3 ML insulin pen 40 units Sub-Q HS RF: 0 aspirin 81 mg Tablet,Chewable 1 tab PO DAILY RF: 0 lisinopril 2.5 mg Tablet 1 tab PO DAILY RF: 0 bupropion HCl 150 mg Tablet Extended Release 12 Hr 150 mg PO BID RF: 0 fexofenadine 180 mg Tablet 180 mg PO DAILY RF: 0 Novolog PenFill U-100 Insulin 100 unit/mL Cartridge 40 unit subcut DAILY RF: 0 Basaglar KwikPen U-100 Insulin 100 unit/mL (3 mL) Insulin Pen 40 unit subcut DAILY RF: 0 Dexilant 60 mg Capsule,Biphase Delayed Releas 1 tab PO DAILY RF: 0 magnesium oxide 250 mg tablet 400 mg PO BID RF: 0 Discharge Instructions Instructions: Anxiety (ED), General Headache (ED) Additional Instructions: follow up with your primary care provider in 1-2 weeks IF you have severe worsening of pain, fevers, persistent vomit or new symptoms such as chest pain or difficulty breathing Medical Decision Making 58 yo female who has a hx of cad, copd, dm, frequent headches and anxiety per pt comes in with not feeling well for a day. She on exam is tearful and when I ask why she states I don't know. She does appear anxious on exam, is hyperventilating and states she does feel like she is having a panic attack. She has a frontal headache that is similar to her prior headaches and has been present for about 3 hours now. Denies vomit, fevers, chest pain, sob. Her daughter reports she thought she had left facial droop earlier tonight. Pt has no focal neuro deficits on exam, cN II-XII are intact and NIH of 0. I suspect her symptoms are related to anxiety but given her headache will obtain imaging to eval for sdh vs sah though unlikely given not worse of her life and slowly worsened. No fevers or other infectious symptoms so doubt entities such as pharmacognosist infection (and has no meningismus) or other serious bacterial illness. labs show ckd with mild rex, glucose elevated, apparently hasn't been taking her meds regaularly. She is now sleeping in no distress, awaiting head ct results ct shows no acute abnormality. She remains stable, calm and still has no focal neuro deficits. Do not feel admission for tia indicated given not clear if she had actual facial droop or not. She was advised to take her meds as prescribed and also f/u with pcp within a week, return precautions given Differential Diagnosis anxiety, panic attack, sdh, tension headache Imaging Data Radiologic Study: Attestation: I personally reviewed and interpreted this imaging study as follows: Imaging: CT Scan Radiologist's impression: IMPRESSION: No acute intracranial abnormality seen Lab Data Lab results reviewed: Yes I reviewed the patient's lab results. HPI General Mode of arrival: wheelchair . Date/Time Provider Initiated Documentation: 10/28/18 23:20 . Limitations to Documentation: no limitations . Information obtained by: patient . History of Present Illness 58 year old F presents to the emergency department with the chief complaint of not feeling well, and is localized to the head. Patient reports no radiation. Patient started experiencing this unknown No relieving factors improve symptom(s), No exacerbating factors reported . Patient notes other (headache). Patient did receive the following treatments prior to arrival, other (tylenol) Related Data Home Medications Medication Instructions Recorded Confirmed duloxetine [Cymbalta] 60 mg PO DAILY 12/19/15 10/28/18 zolpidem 10 mg PO HS 12/19/15 10/28/18 nitroglycerin [Nitrostat] 0.4 mg SUBLINGUAL PRN PRN 06/01/17 10/28/18 Novolog Flexpen U-100 Insulin 0 units SUB-Q 0800,1200,1700 #1 ea 06/04/17 10/28/18 atorvastatin [Lipitor] 40 mg PO QPM #30 tab 06/04/17 10/28/18 albuterol sulfate 2.5 mg INHALATION QID PRN ml 07/10/17 10/28/18 albuterol sulfate [ProAir HFA] 2 puff INHALATION Q4H PRN inhaler 07/10/17 10/28/18 Lantus Solostar U-100 Insulin 40 units SUB-Q HS 03/01/18 10/28/18 aspirin 1 tab PO DAILY 04/26/18 10/28/18 lisinopril 1 tab PO DAILY 04/26/18 10/28/18 Basaglar KwikPen U-100 Insulin 40 unit SUBCUT DAILY 05/10/18 10/28/18 Dexilant 1 tab PO DAILY 05/10/18 10/28/18 Novolog PenFill U-100 Insulin 40 unit SUBCUT DAILY 05/10/18 10/28/18 bupropion HCl 150 mg PO BID 05/10/18 10/28/18 fexofenadine 180 mg PO DAILY 05/10/18 10/28/18 lorazepam 0.5 mg tablet 0.5 mg PO DAILY PRN tab 06/25/18 10/28/18 magnesium oxide 400 mg PO BID 10/28/18 10/28/18 Previous Rx's Medication Instructions Recorded Novolog Flexpen U-100 Insulin 0 units SUB-Q 0800,1200,1700 #1 ea 06/04/17 atorvastatin [Lipitor] 40 mg PO QPM #30 tab 06/04/17 Allergies Allergy/AdvReac Type Severity Reaction Status Date / Time amoxicillin [From Augmentin] Allergy Unverified 07/10/18 14:37 clavulanic acid Allergy Unverified 07/10/18 14:37 [From Augmentin] Penicillins Allergy Unverified 07/10/18 14:37 Sulfa (Sulfonamide Allergy Unverified 07/10/18 14:37 Antibiotics) amitriptyline AdvReac made my Unverified 07/10/18 14:37 face go numb amoxicillin trihydrate AdvReac acute Unverified 07/10/18 14:37 [From Augmentin] kidney failure NSAIDS (Non-Steroidal AdvReac stage III Unverified 07/10/18 14:37 Anti-Inflamma kidney disease potassium clavulanate AdvReac acute Unverified 07/10/18 14:37 [From Augmentin] kidney failure General SADE: 3 Review of Systems Review of Systems All systems reviewed & are unremarkable except as noted in HPI and below Constitutional Denies chills, Denies fever(s) and Denies weakness ENT Denies change in voice Cardiovascular Denies chest pain and Denies dyspnea Respiratory Denies cough and Denies dyspnea Gastrointestinal Denies abdominal pain, Denies nausea and Denies vomiting Genitourinary Denies dysuria Neurologic Denies weakness Psychiatric Denies depression [facility] Medical History Diabetes (Chronic) Hypertension (Chronic) Renal insufficiency (Chronic) Depression Diabetes Insomnia Surgical History Appendectomy section Cholecystectomy Coronary Stent Social History Smoking and Tabacco status: Current every day Exam Const General: anxious Orientation: alert HENMT Head: normal to inspection Ears: external ears normal General nose exam: external nose normal Mouth: moist mucous membranes Eyes General: appearance normal, both eyes and all related structures Neck Neck: normal visual inspection Resp Effort & Inspection: normal respiratory effort and able to speak in complete sentences Cardio Rate: regular rate Skin General skin exam: no rashes or lesions noted Neuro General: alert and oriented x3 Extrem General: normal to inspection Psych Mental Status: mental status grossly normal
[2018-10-28 23:36] VITALS: PULSE 92; RESP 13; O2SAT 96
[2018-10-28] MEDS: LORazepam 2 MG/ML VIAL 1 MG IVP (23:37)
[2018-10-28 23:39] LABS: Abs Immature Grans 0.03 k/cumm (0.0-0.09); Absolute Basophil Count 0.06 k/cumm (0.0-0.2); Absolute Eosinophil Count 0.22 k/cumm (0.0-0.7); Absolute Lymphocyte Count 2.33 k/cumm (1.2-3.4); Absolute Monocyte Count 0.49 k/cumm (0.11-0.7); Absolute Neutrophil Count 3.83 k/cumm (1.2-6.7); Basophils % 0.9; Eosinophils % 3.2; HCT 31.7 % (36.0-46.0); Immature Grans % 0.4; Lymphocytes % 33.5; Mean Corp. HGB Concentration 34.7 g/dL (32.0-36.0); Mean Corpuscular Hemoglobin 31.6 pg (27.0-33.0); Mean Corpuscular Volume 91.1 fL (80-95); Mean Platelet Volume 9.9 fL (8.0-11.0); Platelet Count 268 x1000/uL (130-400); RBC 3.48 m/cumm (4.00-5.20); RBC Distribution Width 12.4 % (11.7-14.6); White Blood Cell Count 6.96 k/cumm (4.4-10.8)
[2018-10-28 23:40] VITALS: PULSE 91; RESP 17
[2018-10-28 23:52] LABS: ALT 16 U/L (12-78); AST 10 U/L (15-37); Albumin 3.1 g/dL (3.4-5.0); Alkaline Phosphatase 135 U/L (46-116); Anion Gap 9.9 mmol/L (3-11); BUN 44 mg/dL (7-18); Bilirubin, Total 0.2 mg/dL (0.2-1.0); CO2 23.1 mmol/L (21.0-32.0); CREATININE 1.78 mg/dL (0.55-1.02); Calcium 8.5 mg/dL (8.5-10.1); Chloride 105 mmol/L (98-107); Estimated GFR 29.27 (mL/min/1.73m2); Glucose 340 mg/dL (70-100); Potassium 4.5 mmol/L (3.5-5.1); Sodium 138 mmol/L (136-145); Total Protein 7.1 g/dL (6.4-8.2)
--- NOTE | 2018-10-28 23:57 | DI.CT_ITS ---
SYMPTOM/DIAGNOSIS: HEADACHE NONCONTRAST HEAD CT: No priors. The ventricles and sulci are consistent with the patient's age. The bennett white matter differentiation is well maintained. No acute infarct,hemorrhage, midline shift or mass effect is identified. The ventricles are intact. The basilar cisterns are patent. The visualized paranasal sinuses are clear. The mastoid air cells appear well pneumatized. The calvarium is intact. IMPRESSION: No acute intracranial process.
[2018-10-28 23:59] VITALS: BP 124/64
--- NOTE | 2018-10-29 00:13 | NUR.NOTE ---
Nursing Note: pt is no acute distress. pt sleeping in bed, appears comfortable. will continue to monitor.
--- NOTE | 2018-10-29 00:30 | DI.VRAD_ITS ---
EXAM: CT Head Without Contrast EXAM DATE/TIME: 10/28/2018 11:29 PM CLINICAL HISTORY: 58 years old, female; Pain; Headache; Headache not specified TECHNIQUE: Axial computed tomography images of the head/brain without contrast. All CT scans at this facility use at least one of these dose optimization techniques: automated exposure control; mA and/or kV adjustment per patient size (includes targeted exams where dose is matched to clinical indication); or iterative reconstruction. Coronal and sagittal reformatted images were created and reviewed. COMPARISON: No relevant prior studies available. FINDINGS: Brain: No acute intracranial hemorrhage, mass-effect, midline shift, or extra-axial collection is seen. The bennett white matter differentiation appears preserved. Ventricles: The ventricular system and basilar cisterns appear appropriate in size and configuration. Bones/joints: The bony calvarium appears intact. No depressed skull fracture is seen. Sinuses: The visualized paranasal sinuses appear clear. Mastoid air cells: The mastoid air cells appear clear. Auditory system: The middle ear cavities appear clear. Orbits: The globes and intraorbital structures appear grossly intact. Soft tissues: No significant scalp lesion is demonstrated. IMPRESSION: No acute intracranial abnormality seen. Dictated and Authenticated by: Rodríguez Shirley MD. Ordering:DORIAN Otero MD
[2018-10-29 00:36] VITALS: PULSE 92; RESP 16; O2SAT 96
--- NOTE | 2018-10-29 09:26 | PDOC.ERCMPRO ---
Care Management Progress Note 10/29-Dr. Sequeira requested assistance with a PCP (Jose at [facility] in [place]) within one week for headache/anxiety. Called [facility] and spoke with Katy. Katy requested ED reports be faxed to [phone], for which they were, and Katy will reach out to Nimisha to schedule f/u appt.
--- NOTE | 2018-10-29 09:27 | CMPROGNOTE_ITS ---
Care Management Progress Note 10/29-Dr. Sequeira requested assistance with a PCP (Jose at [facility] in [place]) within one week for headache/anxiety. Called [facility] and spoke with Katy. Katy requested ED reports be faxed to [phone], for which they were, and Katy will reach out to Nimisha to schedule f/u appt.
== END 2018-10-29 00:45 | disposition home or self-care (01) ==
LOC: ER 10-29 00:43
PROVIDERS: Emergency Provider Emergency Medicine; PCP Nurse Practitioner Family
DX: R51 Headache (principal); F41.9 Anxiety disorder, unspecified; N17.9 Acute kidney failure, unspecified; E11.22 Type 2 diabetes mellitus with diabetic chronic kidney disease; Z79.4 Long term (current) use of insulin; J44.9 Chronic obstructive pulmonary disease, unspecified; I12.0 Hypertensive chronic kidney disease with stage 5 chronic kidney disease or end stage renal disease; N18.3 Chronic kidney disease, stage 3 (moderate)
CPT/HCPCS: 36415; 80053; 96374; 99284; 70450; 85025; J2060; J3490

== ENCOUNTER 2018-12-09 15:27 | Outpatient (CLI) | payer MEDICARE, MEDICAID, SELFPAY ==
[2018-12-09 16:55] LABS: Anion Gap 8.7 mmol/L (3-11); BUN 26 mg/dL (7-18); CO2 26.3 mmol/L (21.0-32.0); CREATININE 1.61 mg/dL (0.55-1.02); Calcium 8.6 mg/dL (8.5-10.1); Chloride 100 mmol/L (98-107); Estimated GFR 32.87 (mL/min/1.73m2); Glucose 164 mg/dL (70-100); Potassium 4.7 mmol/L (3.5-5.1); Sodium 135 mmol/L (136-145)
== END 2018-12-09 15:47 ==
PROVIDERS: PCP Nurse Practitioner Family; Visit Provider Nurse Practitioner Family
DX: E87.5 Hyperkalemia (principal)
CPT/HCPCS: 36415; 80048

== ENCOUNTER 2019-01-03 15:20 | Emergency (ER) | payer MEDICARE, MEDICAID, SELFPAY ==
[2019-01-03 15:23] VITALS: BP 158/86; PULSE 96; RESP 20; TEMP 36.8; O2SAT 99
[2019-01-03 15:28] VITALS: RESP 20
--- NOTE | 2019-01-03 15:49 | W.ED.GENAD ---
Discharge Plan Disposition Patient Disposition: HOME Condition: Improving Discharge Details Chief Complaint: GenMedical Clinical Impression: Cough, Asthma exacerbation in COPD Primary Care Provider: Maylin Garcia ED Provider: Rigoberto Figueroa Home Meds and New Rx's Prescriptions: New prednisone 50 mg tablet 50 mg PO DAILY Qty: 5 RF: 0 No Action lorazepam [Ativan] 0.5 mg tablet 0.5 mg PO DAILY PRNRF: 0 albuterol sulfate 1.25 MG/3 ML solution for nebulization 2.5 mg Inhalation QID PRNRF: 0 albuterol sulfate [ProAir HFA] 8.5 GM HFA aerosol inhaler 2 puff Inhalation Q4H PRN RF: 0 zolpidem 10 MG tablet 10 mg PO HS RF: 0 duloxetine [Cymbalta] 60 MG capsule,delayed release(DR/EC) 60 mg PO DAILY RF: 0 nitroglycerin [Nitrostat] 0.4 MG tablet, sublingual 0.4 mg Sublingual PRN PRNRF: 0 atorvastatin [Lipitor] 40 MG tablet 40 mg PO QPM Qty: 30 RF: 0 Novolog Flexpen U-100 Insulin 300 UNITS/3 ML insulin pen Sub-Q 0800,1200,1700 Qty: 1 RF: 1 aspirin 81 mg Tablet,Chewable 1 tab PO DAILY RF: 0 lisinopril 2.5 mg Tablet 1 tab PO DAILY RF: 0 bupropion HCl 150 mg Tablet Extended Release 12 Hr 150 mg PO BID RF: 0 fexofenadine 180 mg Tablet 180 mg PO DAILY RF: 0 Novolog PenFill U-100 Insulin 100 unit/mL Cartridge 40 unit subcut DAILY RF: 0 Basaglar KwikPen U-100 Insulin 100 unit/mL (3 mL) Insulin Pen 40 unit subcut DAILY RF: 0 Dexilant 60 mg Capsule,Biphase Delayed Releas 1 tab PO DAILY RF: 0 magnesium oxide 250 mg tablet 400 mg PO BID RF: 0 Discharge Instructions Instructions: COPD (Chronic Obstructive Pulmonary Disease) (ED), Acute Cough (ED) Additional Instructions: Please take prednisone for the next 5 days use your albuterol inhaler every 4-6 hours for shortness of breath and follow-up with your primary care doctor on Friday or Friday please return to the emergency department immediately for increasing shortness of breath fever chills inability to have secure follow-up with your primary care doctor or other concer.r Referrals: Rigoberto Figueroa MD [Emergency Provider] - Medical Decision Making 58-year-old female past medical history of COPD tobacco use hypertension and diabetes presents with persistent cough for a number of weeks chest x-ray negative for pneumonia EKG sinus rhythm at 92 normal axis no ectopy no ST elevation normal intervals no chest pain. Differential diagnosis includes pneumonia versus COPD exacerbation versus post viral cough versus less likely acute coronary syndrome or digestive heart failure no chest pain no pulmonary edema no lower extremity edema no orthopnea. Patient treated with bronchodilators prednisone burst started here in the emergency department to be continued for 5 days outpatient and symptomatic antitussives with guaifenesin. Patient agrees to follow-up with PCP in the next 2 to 3 days and return immediately for shortness of breath chest pain loss of consciousness dizziness weakness or any other concern. HPI 58-year-old female past medical history of tobacco use COPD diabetes hypertension presents with 2 to 3 weeks of nonproductive cough and increased wheezing no shortness of breath no chest pain no nausea vomiting diarrhea loss of consciousness or fever chills. Symptoms are intermittent worse at night irritating taking [id number] Mucinex with guaifenesin and dextromethorphan and phenylephrine without improvement. General Date/Time Provider Initiated Documentation: 01/03/19 15:31. Related Data Home Medications Medication Instructions Recorded Confirmed duloxetine [Cymbalta] 60 mg PO DAILY 12/19/15 01/03/19 zolpidem 10 mg PO HS 12/19/15 01/03/19 nitroglycerin [Nitrostat] 0.4 mg SUBLINGUAL PRN PRN 06/01/17 01/03/19 Novolog Flexpen U-100 Insulin 0 units SUB-Q 0800,1200,1700 #1 ea 06/04/17 01/03/19 atorvastatin [Lipitor] 40 mg PO QPM #30 tab 06/04/17 01/03/19 albuterol sulfate 2.5 mg INHALATION QID PRN ml 07/10/17 01/03/19 albuterol sulfate [ProAir HFA] 2 puff INHALATION Q4H PRN inhaler 07/10/17 01/03/19 aspirin 1 tab PO DAILY 04/26/18 01/03/19 lisinopril 1 tab PO DAILY 04/26/18 01/03/19 Basaglar KwikPen U-100 Insulin 40 unit SUBCUT DAILY 05/10/18 01/03/19 Dexilant 1 tab PO DAILY 05/10/18 01/03/19 Novolog PenFill U-100 Insulin 40 unit SUBCUT DAILY 05/10/18 01/03/19 bupropion HCl 150 mg PO BID 05/10/18 01/03/19 fexofenadine 180 mg PO DAILY 05/10/18 01/03/19 lorazepam 0.5 mg tablet 0.5 mg PO DAILY PRN tab 06/25/18 01/03/19 magnesium oxide 400 mg PO BID 10/28/18 01/03/19 prednisone 50 mg PO DAILY #5 tab 01/03/19 Previous Rx's Medication Instructions Recorded Novolog Flexpen U-100 Insulin 0 units SUB-Q 0800,1200,1700 #1 ea 06/04/17 atorvastatin [Lipitor] 40 mg PO QPM #30 tab 06/04/17 prednisone 50 mg PO DAILY #5 tab 01/03/19 Allergies Allergy/AdvReac Type Severity Reaction Status Date / Time amoxicillin [From Augmentin] Allergy Unverified 01/03/19 15:27 clavulanic acid Allergy Unverified 01/03/19 15:27 [From Augmentin] Penicillins Allergy Unverified 01/03/19 15:27 Sulfa (Sulfonamide Allergy Unverified 01/03/19 15:27 Antibiotics) amitriptyline AdvReac made my Unverified 01/03/19 15:27 face go numb amoxicillin trihydrate AdvReac acute Unverified 01/03/19 15:27 [From Augmentin] kidney failure NSAIDS (Non-Steroidal AdvReac stage III Unverified 01/03/19 15:27 Anti-Inflamma kidney disease potassium clavulanate AdvReac acute Unverified 01/03/19 15:27 [From Augmentin] kidney failure General Stated Complaint: GenMedical SADE: 3 Review of Systems Review of Systems All systems reviewed & are unremarkable except as noted in HPI and below PFSH Social History Smoking/Tobacco Use Status: Current every day Alcohol Intake: never Drug use: Never Substance use type: does not use Do you feel safe in your relationship?: Yes Exam Narrative Exam Narrative: Pulse oximetry reviewed by me and is normal [] Constitutional: Pt is in no acute distress. he is well appearing. he oriented to person, place, and time. Eyes: conjunctivae are normal. Pupils are equal, round, and reactive to light. No scleral icterus. extraocular muscles are intact Ears/Nose/Mouth/Throat: mucus membranes are moist. Musculoskeletal: neck is supple. normal range of motion in all extremities. Cardiovascular: Normal rate and rhythm. No lower extremity edema [regular rate and rhythm] Respiratory: effort is normal . pt exhibits no stridor or respiratory distress. [Expiratory wheezes bilaterally] GastrointestinaI: abdomen soft, +BS, nontender, -rebound, -guarding. Neurological: alert and oriented to person, place, and time. he has normal strength, no tremor. Skin: Skin is warm and dry. he is not diaphoretic. Distal perfusion in tact, warm extremities, cap refill ? 2 seconds. No lower extremity edema Hem/Lymph/Imm: No cervical LAD, no goiter, no conjunctival pallor Psych: normal mood and affect. behavior is normal Triage and nurse notes reviewed.[] Course Vital Signs Temperature 36.8 C 01/03/19 15:23 Pulse 96 H 01/03/19 15:23 Respiratory Rate 20 01/03/19 15:23 Blood Pressure 158/86 H 01/03/19 15:23 Pulse Oximetry 99 01/03/19 15:23 Temperature 36.8 C 01/03/19 15:23 Temperature Source Temporal Artery Scan 01/03/19 15:23 Pulse 96 H 01/03/19 15:23 Respiratory Rate 20 01/03/19 15:28 Respiratory Effort Non-Labored 01/03/19 15:28 Respiratory Depth Normal 01/03/19 15:28 Respiratory Pattern Normal 01/03/19 15:28 Blood Pressure 158/86 H 01/03/19 15:23 Blood Pressure Position Supine 01/03/19 15:23 Pulse Oximetry 99 01/03/19 15:23 Oxygen Delivery Method Room Air 01/03/19 15:23 Oxygen Flow Rate 0 01/03/19 15:23 Pain Level 5 01/03/19 15:23
--- NOTE | 2019-01-03 16:47 | DI.RAD_ITS ---
SYMPTOMS/DIAGNOSIS: COUGH PA AND LATERAL CHEST: Comparison is made with [id number]. The heart size is within normal limits. Coronary artery stent is noted. The lungs appear clear. No infiltrate or effusion is seen. IMPRESSION: No acute abnormality.
--- NOTE | 2019-01-03 16:58 | DI.VRAD_ITS ---
EXAM: XR Chest, 2 Views EXAM DATE/TIME: 01/03/2019 3:49 PM CLINICAL HISTORY: 58 years old, female; Signs and symptoms; Cough TECHNIQUE: Imaging protocol: XR of the chest, 2 views. COMPARISON: CR CHEST 2 VIEWS PA,LAT 03/09/2018 8:47 PM FINDINGS: Lungs: There is mild scarring in the perihilar regions but this is unchanged since 06/01/2017. Pleural space: Unremarkable. No pleural effusion. No pneumothorax. Heart/Mediastinum: Unremarkable. No cardiomegaly. Bones/joints: Unremarkable. IMPRESSION: Chronic changes but no acute cardiopulmonary process. Dictated and Authenticated by: Branden Marcus MD. Ordering:BELLA Franklin MD
[2019-01-03 17:38] VITALS: BP 158/86; PULSE 96; RESP 20; TEMP 36.8; O2SAT 99
== END 2019-01-03 17:55 | disposition home or self-care (01) ==
PROVIDERS: Emergency Provider Emergency Medicine; PCP Nurse Practitioner Family
DX: J44.1 Chronic obstructive pulmonary disease with (acute) exacerbation (principal); F17.210 Nicotine dependence, cigarettes, uncomplicated; E11.9 Type 2 diabetes mellitus without complications; Z79.4 Long term (current) use of insulin; I10 Essential (primary) hypertension
CPT/HCPCS: 99283; 71046

== ENCOUNTER 2019-01-03 21:09 | Emergency (ER) | payer MEDICARE, MEDICAID, SELFPAY ==
[2019-01-03 21:15] VITALS: BP 150/69; PULSE 116; RESP 22; TEMP 36.7; O2SAT 95
[2019-01-03 21:23] VITALS: RESP 22
--- NOTE | 2019-01-03 21:32 | ED.GENADUL_ITS ---
Discharge Plan Disposition Patient Disposition: HOME Condition: Improving Discharge Details Chief Complaint: Chest Pain Clinical Impression: Atypical chest pain Primary Care Provider: Maylin Garcia ED Provider: Murtaza Lamas Home Meds and New Rx's Prescriptions: Continued lorazepam [Ativan] 0.5 mg tablet 0.5 mg PO DAILY PRNRF: 0 albuterol sulfate 1.25 MG/3 ML solution for nebulization 2.5 mg Inhalation QID PRNRF: 0 albuterol sulfate [ProAir HFA] 8.5 GM HFA aerosol inhaler 2 puff Inhalation Q4H PRN RF: 0 zolpidem 10 MG tablet 10 mg PO HS RF: 0 duloxetine [Cymbalta] 60 MG capsule,delayed release(DR/EC) 60 mg PO DAILY RF: 0 nitroglycerin [Nitrostat] 0.4 MG tablet, sublingual 0.4 mg Sublingual PRN PRNRF: 0 atorvastatin [Lipitor] 40 MG tablet 40 mg PO QPM Qty: 30 RF: 0 Novolog Flexpen U-100 Insulin 300 UNITS/3 ML insulin pen Sub-Q 0800,1200,1700 Qty: 1 RF: 1 aspirin 81 mg Tablet,Chewable 1 tab PO DAILY RF: 0 lisinopril 2.5 mg Tablet 1 tab PO DAILY RF: 0 bupropion HCl 150 mg Tablet Extended Release 12 Hr 150 mg PO BID RF: 0 fexofenadine 180 mg Tablet 180 mg PO DAILY RF: 0 Novolog PenFill U-100 Insulin 100 unit/mL Cartridge 40 unit subcut DAILY RF: 0 Basaglar KwikPen U-100 Insulin 100 unit/mL (3 mL) Insulin Pen 40 unit subcut DAILY RF: 0 Dexilant 60 mg Capsule,Biphase Delayed Releas 1 tab PO DAILY RF: 0 magnesium oxide 250 mg tablet 400 mg PO BID RF: 0 prednisone 50 mg tablet 50 mg PO DAILY Qty: 5 RF: 0 Discharge Instructions Instructions: Chest Pain (ED) Additional Instructions: Take the prednisone you were prescribed can cause increases in blood glucose level. Please check your glucose with each meal. Continue your regular medications Return for recurrent chest discomfort, development of a fever, cough or any other acute concern Discharge Data Discharge Date/Time-TO BE ENTERED AT DEPARTURE: 01/04/19 02:01 Medical Decision Making <WHIT [place] - Last Filed: 01/07/19 06:24> Patient presents with c/c of chest pain that has since resolved. Patient seen here this afternoon at which time cxr without acute abnormality. Begun on steroids. She is well appearing at this time but sounds anxious with speech pattern. She is tachycardic at 116. O2 95% on RA. Lungs clear, RRR. No abdominal pain although she reports chronic intermittent abdominal pain. Concidered ACS, patient has history of CA with stent placement. EKG was reviewed by Dr. Lamas. Patient is tachycardic but in sinus rhythm with no acute ischemic changes noted. No evidence of STEMI. Also considered dx of PE with recent cough, tachycardia, will obtain d-dimer. Patient is not anticoagulated, reports that she took ASA this AM as advised by PCP. As pain has improved, less likely to be dissection, no history of aneurysm. Low suspicion for pneumonia as she had normal cxr today, lungs clear and no other evidence of infection. Will obtain labs, give ASA and continue to monitor. Patient remains anxious but otherwise asymptomatic. She is ambulating about department without difficulty. Labs significant for glucose of 539. She has DM II, typically takes Novolog. States she took her long-acting dose this morning but does not use any short acting today. Has not been checking her glucose. Was started on prednisone today. States that earlier today she did feel slightly hypoglycemic. Will give 10 units of NovoLog. Troponin is less than 0.02. D-dimer is less than 500. Creatinine is elevated at 1.7 but this is typical for the patient. Discussed these findings with the patient. Plan to monitor and repeat 4-hour troponin as well as continue to monitor the patient's glucose. Discussed this plan with the patient was in agreement. HEART score 4. Discussed case with Dr. Lamas who will assume care with 4 hour troponin and repeat EKG pending. Repeat glucose 585, will give another 10U insulin. <Murtaza Lamas MD - Last Filed: 01/04/19 01:52> Received transfer of care from Ms. Fields. Patient remains without complaint in the emergency department. Following fluids and insulin her repeat glucoses in the 300s. She does not have an anion gap. Repeat troponin obtained and negative. Repeat EKG at 0128 hrs. reveals a normal sinus rhythm with a rate and the 90s, the QRS is narrow, there is no ST segment elevation present. Patient remains improved. She will be discharged to home; continue medications as previously prescribed HPI <WHIT [place] - Last Filed: 01/07/19 06:24> General Mode of arrival: ambulatory . Date/Time Provider Initiated Documentation: 01/03/19 21:13 . Limitations to Documentation: no limitations . Information obtained by: patient and RN notes reviewed . HPI Narrative: Patient is a 58 year old female with history of DM, renal insufficiency, HTN, depressi on, COPD, CA with stent placement, presenting today with c/c of chest pain that began 45 minutes prior to arrival. States she was coloring at the time of onset. Was seen here today for evaluation of cough x 3 weks. Diagnosed with COPD exacerbation and begun on prednisone burst. She reports that she took sublinqual nitro x 3 prior to arrival with no improvement in her symptoms. States that since being in the department she is asymptomatic. No pain. Denies SOB. Pain was radiating to the right arm. No abomdinal pain, no nausea. Related Data Home Medications Medication Instructions Recorded Confirmed duloxetine [Cymbalta] 60 mg PO DAILY 12/19/15 01/05/19 zolpidem 10 mg PO HS 12/19/15 01/05/19 nitroglycerin [Nitrostat] 0.4 mg SUBLINGUAL PRN PRN 06/01/17 01/05/19 Novolog Flexpen U-100 Insulin 0 units SUB-Q 0800,1200,1700 #1 ea 06/04/17 01/05/19 atorvastatin [Lipitor] 40 mg PO QPM #30 tab 06/04/17 01/05/19 albuterol sulfate 2.5 mg INHALATION QID PRN ml 07/10/17 01/05/19 albuterol sulfate [ProAir HFA] 2 puff INHALATION Q4H PRN inhaler 07/10/17 01/05/19 aspirin 1 tab PO DAILY 04/26/18 01/05/19 lisinopril 1 tab PO DAILY 04/26/18 01/05/19 Basaglar KwikPen U-100 Insulin 40 unit SUBCUT DAILY 05/10/18 01/05/19 Dexilant 1 tab PO DAILY 05/10/18 01/05/19 Novolog PenFill U-100 Insulin 40 unit SUBCUT DAILY 05/10/18 01/05/19 bupropion HCl 150 mg PO BID 05/10/18 01/05/19 fexofenadine 180 mg PO DAILY 05/10/18 01/05/19 lorazepam 0.5 mg tablet 0.5 mg PO DAILY PRN tab 06/25/18 01/05/19 magnesium oxide 400 mg PO BID 10/28/18 01/05/19 prednisone 50 mg PO DAILY #5 tab 01/03/19 01/05/19 Previous Rx's Medication Instructions Recorded Novolog Flexpen U-100 Insulin 0 units SUB-Q 0800,1200,1700 #1 ea 06/04/17 atorvastatin [Lipitor] 40 mg PO QPM #30 tab 06/04/17 prednisone 50 mg PO DAILY #5 tab 01/03/19 Allergies Allergy/AdvReac Type Severity Reaction Status Date / Time amoxicillin [From Augmentin] Allergy Unverified 01/05/19 09:31 clavulanic acid Allergy Unverified 01/05/19 09:31 [From Augmentin] Penicillins Allergy Unverified 01/05/19 09:31 Sulfa (Sulfonamide Allergy Unverified 01/05/19 09:31 Antibiotics) amitriptyline AdvReac made my Unverified 01/05/19 09:31 face go numb amoxicillin trihydrate AdvReac acute Unverified 01/05/19 09:31 [From Augmentin] kidney failure NSAIDS (Non-Steroidal AdvReac stage III Unverified 01/05/19 09:31 Anti-Inflamma kidney disease potassium clavulanate AdvReac acute Unverified 01/05/19 09:31 [From Augmentin] kidney failure General SADE: 3 Review of Systems <WHIT [place] - Last Filed: 01/07/19 06:24> Constitutional Reports as per HPI, Denies chills, Denies fever(s), Denies headache(s), Denies lethargy and Denies poor appetite Eyes Denies change in vision ENT Denies dizziness and Denies headache(s) Cardiovascular Reports as per HPI, Reports chest pain, Reports chest pain at rest, Denies chest pain with activity, Denies syncope, Denies rapid heart rate, Denies leg edema, Denies lightheadedness, Reports radiating jaw, neck or arm pain (to right arm), Reports palpitations (feels occassional clunking), Denies dyspnea and Denies dyspnea on exertion Respiratory Reports as per HPI, Denies chest congestion, Denies cough, Denies pain on inspiration, Denies pain with cough, Denies dyspnea, Denies dyspnea on exertion and Denies wheezing Gastrointestinal Reports as per HPI, Denies abdominal pain, Denies diarrhea, Denies nausea and Denies vomiting Musculoskeletal Reports as per HPI and Denies back pain Integumentary/Breasts Reports as per HPI and Denies rash Neurologic Reports as per HPI, Denies dizziness, Denies syncope and Denies headache(s) Endocrine Reports palpitations (feels occassional clunking) Allergic/Immunologic Denies wheezing PFSH <WHIT [place] - Last Filed: 01/07/19 06:24> Medical History Diabetes (Chronic) Hypertension (Chronic) Renal insufficiency (Chronic) Depression Diabetes Insomnia Surgical History Appendectomy section Cholecystectomy Coronary Stent Social History Smoking/Tobacco Use Status: Current every day Alcohol Intake: never Drug use: Never Substance use type: does not use Do you feel safe in your relationship?: Yes Exam <WHIT [place] - Last Filed: 01/07/19 06:24> Const General: cooperative, healthy appearing, comfortable, no acute distress and well developed Nutritional Appearance: average body habitus and well nourished Orientation: alert, awake and oriented x3 HENMT Head: normal to inspection Ears: hearing grossly normal bilaterally Mouth: moist mucous membranes Chest Chest: normal inspection of the chest, normal palpation of entire chest wall and no crepitus Resp Effort & Inspection: normal respiratory effort, able to speak in complete sentences and no respiratory distress Auscultation: clear to auscultation bilaterally, no rales, no rhonchi and no wheezes Cardio Rate: regular rate Rhythm: regular rhythm Heart Sounds: S1 normal and S2 normal GI Inspection: normal to inspection, no edema and non-distended Palpation: soft, no hepatosplenomegaly, not firm, no guarding, not rigid and nontender Auscultation: normal bowel sounds Back/Spine/Pelvis Back: no CVA tenderness Thoracic/Lumbar Spine: thoracic and lumbar spine normal to inspection Skin General skin exam: no rashes or lesions noted Trauma: no lacerations or abrasions Neuro General: alert, awake and oriented x3 Cognition: normal cognition Speech: speech normal Gait: normal gait Extrem General: normal to inspection, normal capillary refill, no pedal edema, no calf tenderness and normal gait Psych Appearance: grossly normal and well kempt Mental Status: mental status grossly normal Speech and Movement: speech and movement normal Sign Out <WHIT [place] - Last Filed: 01/07/19 06:24> Sign Out Data: Sign Out Comment: Care transitioned to Dr. Lamas with 4 hour troponin and repeat EKG pending. Patient currently asymptomatic. REceived 10U insulin Last updated by Harini Fields PA at 01/03/19 23:43
[2019-01-03 21:51] LABS: Abs Immature Grans 0.02 k/cumm (0.0-0.09); Absolute Basophil Count 0.04 k/cumm (0.0-0.2); Absolute Lymphocyte Count 0.52 k/cumm (1.2-3.4); Absolute Monocyte Count 0.06 k/cumm (0.11-0.7); Absolute Neutrophil Count 8.79 k/cumm (1.2-6.7); Basophils % 0.4; HCT 33.1 % (36.0-46.0); HGB 11.3 g/dL (12.0-15.5); Immature Grans % 0.2; Lymphocytes % 5.5; Mean Corp. HGB Concentration 34.1 g/dL (32.0-36.0); Mean Corpuscular Hemoglobin 31.2 pg (27.0-33.0); Mean Corpuscular Volume 91.4 fL (80-95); Mean Platelet Volume 9.7 fL (8.0-11.0); Monocytes % 0.6; Neutrophils % 93.3; Platelet Count 261 x1000/uL (130-400); RBC 3.62 m/cumm (4.00-5.20); RBC Distribution Width 12.5 % (11.7-14.6); White Blood Cell Count 9.43 k/cumm (4.4-10.8)
[2019-01-03 22:00] LABS: INR 0.9 (0.9-1.1); PTT Activated 23.4 sec (21.0-31.4); Prothrombin Time 9.2 sec (9.3-11.0)
[2019-01-03 22:04] LABS: ALT 23 U/L (12-78); AST 11 U/L (15-37); Albumin 2.9 g/dL (3.4-5.0); Alkaline Phosphatase 110 U/L (46-116); Anion Gap 10.5 mmol/L (3-11); BUN 24 mg/dL (7-18); Bilirubin, Total 0.2 mg/dL (0.2-1.0); CO2 23.5 mmol/L (21.0-32.0); CREATININE 1.71 mg/dL (0.55-1.02); Calcium 8.2 mg/dL (8.5-10.1); Chloride 101 mmol/L (98-107); Estimated GFR 30.66 (mL/min/1.73m2); Magnesium 1.1 mg/dL (1.8-2.4); Potassium 4.5 mmol/L (3.5-5.1); Sodium 135 mmol/L (136-145); Total Protein 7.1 g/dL (6.4-8.2)
[2019-01-03 22:05] LABS: Troponin I < 0.02 ng/mL (0.00-0.06)
[2019-01-03 22:18] LABS: Glucose 539 mg/dL (70-100)
[2019-01-03 22:24] LABS: D-Dimer 489 ng/mlFEU (<500)
[2019-01-03] MEDS: Insulin Aspart 100 UNITS/ML UNIT 10 UNITS IV ×2 (22:48→23:58)
[2019-01-04] MEDS: Normal Saline 1,000 ML 500 ML IV
[2019-01-04 00:04] VITALS: BP 111/62; PULSE 106; RESP 18; O2SAT 97
[2019-01-04 00:05] VITALS: RESP 18; O2SAT 97
--- NOTE | 2019-01-04 00:05 | NUR.NOTE ---
Nursing Note: Report received from Tello RN, care of pt assumed at this time.
[2019-01-04 01:05] VITALS: BP 120/76; PULSE 96; RESP 18; TEMP 36.6; O2SAT 97
[2019-01-04 01:47] LABS: Troponin I < 0.02 ng/mL (0.00-0.06)
[2019-01-04 02:00] VITALS: BP 131/78; PULSE 90; RESP 18; TEMP 36.7; O2SAT 97
== END 2019-01-04 02:01 | disposition home or self-care (01) ==
PROVIDERS: Physician Assistant; Emergency Provider Emergency Medicine; PCP Nurse Practitioner Family
DX: R07.89 Other chest pain (principal); R00.0 Tachycardia, unspecified; E11.22 Type 2 diabetes mellitus with diabetic chronic kidney disease; I12.9 Hypertensive chronic kidney disease with stage 1 through stage 4 chronic kidney disease, or unspecified chronic kidney disease; I25.2 Old myocardial infarction; N18.9 Chronic kidney disease, unspecified; Z95.5 Presence of coronary angioplasty implant and graft
CPT/HCPCS: 36415; 36416; 80053; 82962; 93005; 96361; 96374; 96376; 99283; 71046; 83735; 84484; 85025; 85379; 85610; 85730; 93010; 99285; J1815

== ENCOUNTER 2019-01-05 10:45 | Outpatient (CLI) | payer MEDICARE, MEDICAID, SELFPAY ==
--- NOTE | 2019-01-05 10:18 | DI.RAD_ITS ---
SYMPTOMS/DIAGNOSIS: PAIN LEFT KNEE: The femorotibial joint spaces are well maintained. There is minimal periarticular spurring. No joint effusion is seen. IMPRESSION: Mild degenerative changes. MERCHANT VIEWS OF BOTH KNEES: The exam is somewhat limited by patient body habitus. There is mild spurring at the articular aspect of both patellae, greatest laterally. The patella appeared normally positioned. There may be slight bilateral lateral patellofemoral joint space narrowing. RIGHT KNEE: There is mild narrowing of the medial femorotibial joint. Mild periarticular spurring is seen. There is spurring at the inferior aspect of the patella. No joint effusion is seen. The bones appear osteopenic. IMPRESSION: Degenerative changes, greatest at the patellofemoral joint.
== END 2019-01-05 11:05 ==
PROVIDERS: PCP Nurse Practitioner Family; Referring Provider Nurse Practitioner Family; Visit Provider Orthopaedic Surgery
DX: M25.561 Pain in right knee (principal); M25.562 Pain in left knee; M17.0 Bilateral primary osteoarthritis of knee; F17.210 Nicotine dependence, cigarettes, uncomplicated; N18.3 Chronic kidney disease, stage 3 (moderate)
CPT/HCPCS: 99201; 99213; 73564

== ENCOUNTER 2019-01-16 12:06 | Observation (INO) | payer MEDICARE, MEDICAID, SELFPAY ==
[2019-01-16] VITALS (30 sets, daily range): BP systolic 118–162; BP diastolic 59–129; PULSE 86–100; RESP 9–24; TEMP 35.7–36.6; O2SAT 95–100
--- NOTE | 2019-01-16 12:45 | W.ED.GENAD ---
Discharge Plan Disposition Patient Disposition: [facility] INPATIENT Discharge Details Chief Complaint: Chest Pain Clinical Impression: Chest pain Primary Care Provider: Maylin Garcia ED Provider: Harry Baker Home Meds and New Rx's Prescriptions: No Action lorazepam [Ativan] 0.5 mg tablet 0.5 mg PO DAILY PRNRF: 0 albuterol sulfate 1.25 MG/3 ML solution for nebulization 2.5 mg Inhalation QID PRNRF: 0 albuterol sulfate [ProAir HFA] 8.5 GM HFA aerosol inhaler 2 puff Inhalation Q4H PRN RF: 0 zolpidem 10 MG tablet 10 mg PO HS RF: 0 duloxetine [Cymbalta] 60 MG capsule,delayed release(DR/EC) 60 mg PO DAILY RF: 0 nitroglycerin [Nitrostat] 0.4 MG tablet, sublingual 0.4 mg Sublingual PRN PRNRF: 0 atorvastatin [Lipitor] 40 MG tablet 40 mg PO QPM Qty: 30 RF: 0 Novolog Flexpen U-100 Insulin 300 UNITS/3 ML insulin pen Sub-Q 0800,1200,1700 Qty: 1 RF: 1 aspirin 81 mg Tablet,Chewable 1 tab PO DAILY RF: 0 lisinopril 2.5 mg Tablet 1 tab PO DAILY RF: 0 bupropion HCl 150 mg Tablet Extended Release 12 Hr 150 mg PO BID RF: 0 fexofenadine 180 mg Tablet 180 mg PO DAILY RF: 0 Novolog PenFill U-100 Insulin 100 unit/mL Cartridge 40 unit subcut DAILY RF: 0 Basaglar KwikPen U-100 Insulin 100 unit/mL (3 mL) Insulin Pen 40 unit subcut DAILY RF: 0 Dexilant 60 mg Capsule,Biphase Delayed Releas 1 tab PO DAILY RF: 0 magnesium oxide 250 mg tablet 400 mg PO BID RF: 0 Medical Decision Making 12:55 --58-year-old female with history of coronary artery disease status post stenting, insulin dependent diabetes, hypertension, diabetes, stage III chronic kidney disease, here with intermittent chest pain improved after sublingual nitroglycerin prior to arrival. ECG reviewed and interpreted by me: Computer reading atrial flutter at 98 bpm, I disagree with this interpretation from the computer software, ECG appears to be normal sinus rhythm 98 bpm, normal axis, low voltage in limb leads, poor R wave progression, no STEMI. Plan to check troponin. Patient now having recurrent nonreproducible chest pain on exam. I will give sublingual nitroglycerin and start nitroglycerin infusion. Also will give mylanta. -- cxr interpreted by radiology: no acute process 14:00 -- Patient reassessed and pain resolved improved with sublingual and now resolved on nitro infusion. Patient tearful and anxious requesting ativan and cymbalta as prescribed. -- I ordered ASA 325mg. 14:15 -- Spoke with Dr. Saenz: We discussed ED presentation and course. He will admit the patient. Care transition to Dr. Saenz. HPI General Mode of arrival: ambulatory. Date/Time Provider Initiated Documentation: 01/16/19 12:29. Limitations to Documentation: no limitations. Information obtained by: patient. HPI Narrative: 58-year-old female with history of insulin dependent diabetes, hypertension, coronary artery disease status post stenting in 2005 and again in 2006, stage III kidney disease, here with chief complaint of chest pain. Patient notes the chest pain started this morning around 1045 while she was at rest. She took a nitroglycerin sublingual tablet that did seem to resolve pain. She again experienced chest pain around 1130 and took a second nitroglycerin which helped minimally. Pain persisted and she took another nitroglycerin around 1145. This did help and she had subsequent resolution of pain in route to [facility]. She has no pain at this time. Pain was localized to central chest and radiated across her chest, to her mid back and down her right arm. Patient denies associated diaphoresis, nausea or syncope. No associated shortness of breath. No leg swelling or calf tenderness. Patient did not yet take her aspirin today or antihypertensive. She usually takes these medications around 1 PM. Related Data Home Medications Medication Instructions Recorded Confirmed duloxetine [Cymbalta] 60 mg PO DAILY 12/19/15 01/16/19 zolpidem 10 mg PO HS 12/19/15 01/16/19 nitroglycerin [Nitrostat] 0.4 mg SUBLINGUAL PRN PRN 06/01/17 01/16/19 Novolog Flexpen U-100 Insulin 0 units SUB-Q 0800,1200,1700 #1 ea 06/04/17 01/16/19 atorvastatin [Lipitor] 40 mg PO QPM #30 tab 06/04/17 01/16/19 albuterol sulfate 2.5 mg INHALATION QID PRN ml 07/10/17 01/16/19 albuterol sulfate [ProAir HFA] 2 puff INHALATION Q4H PRN inhaler 07/10/17 01/16/19 aspirin 1 tab PO DAILY 04/26/18 01/16/19 lisinopril 1 tab PO DAILY 04/26/18 01/16/19 Basaglar KwikPen U-100 Insulin 40 unit SUBCUT DAILY 05/10/18 01/16/19 Dexilant 1 tab PO DAILY 05/10/18 01/16/19 Novolog PenFill U-100 Insulin 40 unit SUBCUT DAILY 05/10/18 01/16/19 bupropion HCl 150 mg PO BID 05/10/18 01/16/19 fexofenadine 180 mg PO DAILY 05/10/18 01/16/19 lorazepam 0.5 mg tablet 0.5 mg PO DAILY PRN tab 06/25/18 01/16/19 magnesium oxide 400 mg PO BID 10/28/18 01/16/19 Previous Rx's Medication Instructions Recorded Novolog Flexpen U-100 Insulin 0 units SUB-Q 0800,1200,1700 #1 ea 06/04/17 atorvastatin [Lipitor] 40 mg PO QPM #30 tab 06/04/17 Allergies Allergy/AdvReac Type Severity Reaction Status Date / Time amoxicillin [From Augmentin] Allergy Unverified 01/16/19 12:14 clavulanic acid Allergy Unverified 01/16/19 12:14 [From Augmentin] Penicillins Allergy Unverified 01/16/19 12:14 Sulfa (Sulfonamide Allergy Unverified 01/16/19 12:14 Antibiotics) amitriptyline AdvReac made my Unverified 01/16/19 12:14 face go numb amoxicillin trihydrate AdvReac acute Unverified 01/16/19 12:14 [From Augmentin] kidney failure NSAIDS (Non-Steroidal AdvReac stage III Unverified 01/16/19 12:14 Anti-Inflamma kidney disease potassium clavulanate AdvReac acute Unverified 01/16/19 12:14 [From Augmentin] kidney failure General Stated Complaint: Chest Pain SADE: 3 Review of Systems Review of Systems All systems reviewed & are unremarkable except as noted in HPI and below Cardiovascular Reports as per HPI, Reports chest pain and Denies dyspnea Respiratory Denies cough and Denies dyspnea PFSH Medical History Coronary artery disease (Chronic) Diabetes (Chronic) Hypertension (Chronic) Renal insufficiency (Chronic) Depression Diabetes Insomnia Surgical History Appendectomy section Cholecystectomy Coronary Stent Social History Smoking/Tobacco Use Status: Current every day Alcohol Intake: never Drug use: Never Substance use type: does not use Do you feel safe in your relationship?: Yes Exam Const General: cooperative and no acute distress HENMT Head: normocephalic and atraumatic Mouth: moist mucous membranes Eyes Conjunctivae: normal conjunctivae Sclera: normal sclerae Neck Neck: trachea midline, supple and no JVD Resp Auscultation: clear to auscultation bilaterally, no rales, no rhonchi and no wheezes Cardio Jugular venous pressure: no JVD Rate: regular rate and not tachycardic Rhythm: regular rhythm GI Palpation: soft, not firm, no guarding, no masses, not rigid and nontender Skin General skin exam: no rashes or lesions noted Neuro General: alert, awake and tone normal Extrem General: no calf tenderness bilaterally and no edema Psych Appearance: grossly normal Mental Status: mental status grossly normal Course Vital Signs Pulse 92 H 01/16/19 12:07 Blood Pressure 161/79 H 01/16/19 12:07 Pulse Oximetry 100 01/16/19 12:07 Temperature 36.6 C 01/16/19 12:10 Temperature Source Skin 01/16/19 12:10 Pulse 96 H 01/16/19 12:10 Respiratory Rate 16 01/16/19 12:27 Respiratory Effort 01/16/19 12:27 Blood Pressure 161/79 H 01/16/19 12:07 Blood Pressure Mean 98 01/16/19 12:07 Pulse Oximetry 100 01/16/19 12:10 Oxygen Delivery Method Room Air 01/16/19 12:10 Oxygen Flow Rate 0 01/16/19 12:10 Pain Level 8 01/16/19 12:10
[2019-01-16] MEDS: Normal Saline Flush 10 ML SYR IVP (12:48)
[2019-01-16 12:55] LABS: Abs Immature Grans 0.12 k/cumm (0.0-0.09); Absolute Basophil Count 0.06 k/cumm (0.0-0.2); Absolute Lymphocyte Count 2.94 k/cumm (1.2-3.4); Absolute Monocyte Count 0.72 k/cumm (0.11-0.7); Basophils % 0.5; Eosinophils % 2.6; HCT 36.6 % (36.0-46.0); HGB 12.2 g/dL (12.0-15.5); Lymphocytes % 25.3; Mean Corp. HGB Concentration 33.3 g/dL (32.0-36.0); Mean Corpuscular Hemoglobin 31.1 pg (27.0-33.0); Mean Corpuscular Volume 93.4 fL (80-95); Mean Platelet Volume 9.8 fL (8.0-11.0); Monocytes % 6.2; Neutrophils % 64.4; Platelet Count 312 x1000/uL (130-400); RBC 3.92 m/cumm (4.00-5.20); White Blood Cell Count 11.64 k/cumm (4.4-10.8)
--- NOTE | 2019-01-16 12:55 | DI.RAD_ITS ---
SYMPTOMS/DIAGNOSIS: CHEST PAIN PORTABLE AP CHEST: Comparison 01/03/19. The heart size and pulmonary vasculature are stable and within normal limits. No focal consolidating infiltrates, effusions or pneumothoraces are identified. The osseous structures are unremarkable. IMPRESSION: No acute pulmonary process.
[2019-01-16] MEDS: Mylanta Suspension 30 ML CUP PO ×2 (13:00→17:55)
[2019-01-16] MEDS: Lidocaine 2% Viscous 15 ML CUP (13:01)
[2019-01-16 13:09] LABS: PTT Activated 21.9 sec (21.0-31.4)
[2019-01-16 13:12] LABS: ALT 28 U/L (12-78); AST 13 U/L (15-37); Albumin 3.3 g/dL (3.4-5.0); Alkaline Phosphatase 123 U/L (46-116); Anion Gap 8.8 mmol/L (3-11); BUN 40 mg/dL (7-18); Bilirubin, Total 0.3 mg/dL (0.2-1.0); CO2 27.2 mmol/L (21.0-32.0); CREATININE 1.62 mg/dL (0.55-1.02); Chloride 105 mmol/L (98-107); Estimated GFR 32.64 (mL/min/1.73m2); Glucose 132 mg/dL (70-100); Magnesium 1.6 mg/dL (1.8-2.4); Potassium 4.2 mmol/L (3.5-5.1); Sodium 141 mmol/L (136-145); Total Protein 7.4 g/dL (6.4-8.2)
[2019-01-16 13:14] LABS: Troponin I < 0.02 ng/mL (0.00-0.06)
[2019-01-16] MEDS: Acetaminophen 325 MG TAB 650 MG PO ×2 (13:14→21:18)
[2019-01-16] MEDS: DULoxetine 30 MG CAP 60 MG PO (13:35)
[2019-01-16] MEDS: Magnesium Oxide 400 MG TAB 800 MG PO (13:36)
[2019-01-16] MEDS: LORazepam 0.5 MG TAB PO (13:36)
--- NOTE | 2019-01-16 13:46 | DI.VRAD_ITS ---
EXAM: XR Chest, 1 View EXAM DATE/TIME: 01/16/2019 12:47 PM CLINICAL HISTORY: 58 years old, female; Type not specified; Patient HX: Chest pain x2 hours. TECHNIQUE: Imaging protocol: XR of the chest, 1 view. COMPARISON: CR XR CHEST 2V PA LATERAL 01/03/2019 4:43 PM FINDINGS: Lungs: Right basilar atelectasis . No focal consolidation Pleural space: Unremarkable. No pleural effusion. No pneumothorax. Heart/Mediastinum: Stable cardiac silhouette Bones/joints: Osseous structures are stable IMPRESSION: No acute process Dictated and Authenticated by: Nanette Navarro MD. Ordering:ROSHNI Mcdonald MD
[2019-01-16] MEDS: Aspirin 325 MG TAB PO (14:09)
--- NOTE | 2019-01-16 14:52 | W.PM.HP.N ---
Date of service: 01/16/19 Time of Service: 14:52 Assessment and Plan (1) Chest pain: Current visit: No Status: Acute refer to observation, on telemetry, rule out CA, cycle serial troponins. has been taken off nitro drip and currently pain free. will add nitro paste for recurrent chest pain. continue asa and statin, add beta kamaljit. stress test joel. has follow up with cardiology on January 28, 2019 (2) CAD (coronary atherosclerotic disease): Current visit: No Status: Acute followed by cardiology at [facility]. has scheduled routine follow up appointment for January 28, 2019. continue asa, statin. add beta kamaljit. (3) Hypertension: Current visit: Yes Status: Chronic will monitor blood pressures and continue lisinopril (4) Insomnia: Current visit: Yes Status: Acute will continue zolpidem and add melatonin prn (5) GERD (gastroesophageal reflux disease): Current visit: Yes Status: Chronic reports she has been stable on dexilant. patient states her pain in not her GI pain (6) Type 2 diabetes mellitus: Current visit: Yes Status: Acute diabetic diet, check blood sugars ac/hs and add sliding scale as needed. she reports her blood sugars have been poorly controlled since being on prednisone for COPD flare that she completed yesterday. will reduce basal insulin to 30 units while hospitalized (home dose 40). (7) Chronic kidney disease: Current visit: Yes Status: Acute creatinine stable at 1.6, will avoid nephrotoxic drugs and monitor. (8) COPD (chronic obstructive pulmonary disease): Current visit: Yes Status: Chronic stable at this time, recently treated for a flare with a course of oral steroids. there is no wheezing, oxygen requirements or respiratory c/o presently on exam. (9) Mixed anxiety depressive disorder: Current visit: Yes Status: Acute continue home bupropiron, duloxetine, and lorazepam prn. (10) DVT prophylaxis: Current visit: Yes Status: Acute heparin sq, teds and scds (11) Discharge planning issues: Current visit: Yes Status: Acute home tomorrow if rules out, no services anticipated. History of Present Illness patient reports that she has had several episodes of the chest pain over that past 2 weeks since she was treated for a copd exacerbation with steroids, her course of steroids ended yesterday. she states that her pain is over her epigastric area and radiates to the right Chief Complaint: chest pain Narrative: 58-year-old female with history of insulin dependent diabetes, hypertension, coronary artery disease status post stenting in 2005 and again in 2007, stage III kidney disease, presented to the ED with chest pain that occurred at rest. Reports chest pain started this morning around 1045. She took a nitroglycerin sublingual tablet that did seem to resolve pain. She again experienced chest pain around 1130 and took a second nitroglycerin which helped minimally. Pain persisted and she took another nitroglycerin around 1145. This did help and she had subsequent resolution of pain in route to [facility]. Her pain was localized to central chest and radiated across her chest, to her mid back and down her right arm. Patient denies associated diaphoresis, nausea or syncope. No associated shortness of breath. No leg swelling or calf tenderness. Patient did not yet take her aspirin today or antihypertensives yet today as she usually takes these medications around 1 PM. She was given 325 mg of asa. routine cardiac work up initiated. work up in the ED shows a negative troponin and EKG with no acute changes. She was experiencing anxiety and requested lorazepam and received 0.5 mg, she also received nitro sl and was placed on a nitro drip as her pain re-occurred. She was also given a GI cocktail and magnesium replacement for a mag of 1.6. review of labs show stable creatinine at baseline of 1.62. she was referred to observation for chest pain rule out CA. She has been chest pain free. nitro drip will be discontinued and she will be admitted to med/surg on telemetry. Review of Systems Constitutional Denies fever(s) and Reports increased appetite ENT Denies dysphagia and Denies dizziness Cardiovascular Reports chest pain at rest, Denies chest pain with activity, Reports diaphoresis (one episode 3 days ago, ), Denies syncope, Reports radiating jaw, neck or arm pain (radiates to right arm and back), Denies palpitations and Denies dyspnea Respiratory Denies cough, Denies hemoptysis, Reports pain on inspiration, Denies dyspnea and Denies wheezing Gastrointestinal Denies dysphagia, Denies nausea and Denies vomiting Musculoskeletal Denies arthralgias Neurologic Denies dizziness and Denies syncope Psychiatric Reports anxiety Endocrine Denies palpitations Allergic/Immunologic Denies wheezing [facility] Medical History Coronary artery disease (Chronic) Diabetes (Chronic) Hypertension (Chronic) Renal insufficiency (Chronic) Depression Diabetes Insomnia Surgical History Appendectomy section Cholecystectomy Coronary Stent Family History Grandmother No problems noted. Social History Smoking/Tobacco Use Status: Current every day Alcohol Intake: never Drug use: Never Substance use type: does not use Do you feel safe in your relationship?: Yes Meds Home Medications Medication Instructions Recorded Confirmed Type duloxetine [Cymbalta] 60 mg PO DAILY 12/19/15 01/16/19 History zolpidem 10 mg PO HS 12/19/15 01/16/19 History nitroglycerin [Nitrostat] 0.4 mg SUBLINGUAL PRN PRN 06/01/17 01/16/19 History Novolog Flexpen U-100 Insulin 0 units SUB-Q 0800,1200,1700 #1 ea 06/04/17 01/16/19 Rx atorvastatin [Lipitor] 40 mg PO QPM #30 tab 06/04/17 01/16/19 Rx albuterol sulfate 2.5 mg INHALATION QID PRN ml 07/10/17 01/16/19 History albuterol sulfate [ProAir HFA] 2 puff INHALATION Q4H PRN inhaler 07/10/17 01/16/19 History aspirin 1 tab PO DAILY 04/26/18 01/16/19 History lisinopril 1 tab PO DAILY 04/26/18 01/16/19 History Basaglar KwikPen U-100 Insulin 40 unit SUBCUT DAILY 05/10/18 01/16/19 History Dexilant 1 tab PO DAILY 05/10/18 01/16/19 History Novolog PenFill U-100 Insulin 40 unit SUBCUT DAILY 05/10/18 01/16/19 History bupropion HCl 150 mg PO BID 05/10/18 01/16/19 History fexofenadine 180 mg PO DAILY 05/10/18 01/16/19 History lorazepam 0.5 mg tablet 0.5 mg PO DAILY PRN tab 06/25/18 01/16/19 History magnesium oxide 400 mg PO BID 10/28/18 01/16/19 History Allergies Allergy/AdvReac Type Severity Reaction Status Date / Time amoxicillin [From Augmentin] Allergy Unverified 01/16/19 12:14 clavulanic acid Allergy Unverified 01/16/19 12:14 [From Augmentin] Penicillins Allergy Unverified 01/16/19 12:14 Sulfa (Sulfonamide Allergy Unverified 01/16/19 12:14 Antibiotics) amitriptyline AdvReac made my Unverified 01/16/19 12:14 face go numb amoxicillin trihydrate AdvReac acute Unverified 01/16/19 12:14 [From Augmentin] kidney failure NSAIDS (Non-Steroidal AdvReac stage III Unverified 01/16/19 12:14 Anti-Inflamma kidney disease potassium clavulanate AdvReac acute Unverified 01/16/19 12:14 [From Augmentin] kidney failure Exam Const General: cooperative, anxious, ill appearing chronically and other (older than stated age) Nutritional Appearance: overweight Orientation: alert, awake and oriented x3 Neck Neck: normal visual inspection, full ROM and No JVD Chest Chest: normal inspection of the chest Resp Effort & Inspection: normal respiratory effort Auscultation: clear to auscultation bilaterally Cardio Rate: regular rate Rhythm: regular rhythm Heart Sounds: no murmurs GI Inspection: normal to inspection Auscultation: normal bowel sounds Skin General skin exam: no rashes or lesions noted Neuro General: alert, awake and oriented x3 Extrem General: full ROM Psych Appearance: disheveled Speech and Movement: speech and movement normal Mood: anxious mood Affect: blunted Attitude: cooperative Thought Process: normal Insight: fair Judgment: fair Results Labs : 01/17/19 06:40 01/17/19 06:40 Laboratory Results - last 24 hr 01/16/19 01/16/19 01/16/19 12:19 12:19 12:19 WBC 11.64 H RBC 3.92 L Hgb 12.2 Hct 36.6 MCV 93.4 MCH 31.1 MCHC 33.3 RDW 13.0 Plt Count 312 MPV 9.8 Immature Gran % 1.0 Neutrophils % 64.4 Lymphocytes % 25.3 Monocytes % 6.2 Eosinophils % 2.6 Basophils % 0.5 Absolute Neutrophils 7.50 H Absolute Lymphocytes 2.94 Absolute Monocytes 0.72 H Absolute Eosinophils 0.30 Absolute Basophils 0.06 APTT 21.9 Sodium 141 Potassium 4.2 Chloride 105 Carbon Dioxide 27.2 Anion Gap 8.8 BUN 40 H Creatinine 1.62 H Estimated GFR/1.73 m2 32.64 Glucose 132 H Calcium 9.0 Magnesium 1.6 L Total Bilirubin 0.3 AST 13 L ALT 28 Alkaline Phosphatase 123 H Troponin I < 0.02 Total Protein 7.4 Albumin 3.3 L Last Vital Signs Temp 36.6 C 01/16/19 12:10 Pulse 93 H 01/16/19 13:36 Resp 14 01/16/19 13:36 BP 127/59 L 01/16/19 13:36 Pulse Ox 95 01/16/19 13:36
[2019-01-16 16:04] LABS: Troponin I < 0.02 ng/mL (0.00-0.06)
[2019-01-16] MEDS: Magnesium Oxide 400 MG TAB PO (19:20)
[2019-01-16] MEDS: Atorvastatin 40 MG TAB PO (19:21)
[2019-01-16] MEDS: Dexlansoprazole 30 MG CAP 60 MG PO (20:22)
[2019-01-16] MEDS: Zolpidem 10 MG TAB PO (21:18)
[2019-01-16] MEDS: Heparin 5,000 UNITS/ML VIAL 5000 UNITS SC (21:21)
[2019-01-16 21:26] LABS: Troponin I < 0.02 ng/mL (0.00-0.06)
[2019-01-17 03:23] VITALS: BP 117/80; PULSE 83; RESP 16; TEMP 36; O2SAT 96
[2019-01-17] MEDS: Heparin 5,000 UNITS/ML VIAL 5000 UNITS SC (05:40)
[2019-01-17 07:24] LABS: HCT 33.4 % (36.0-46.0); HGB 10.9 g/dL (12.0-15.5); Mean Corp. HGB Concentration 32.6 g/dL (32.0-36.0); Mean Corpuscular Hemoglobin 30.5 pg (27.0-33.0); Mean Corpuscular Volume 93.6 fL (80-95); Mean Platelet Volume 9.8 fL (8.0-11.0); Platelet Count 277 x1000/uL (130-400); RBC 3.57 m/cumm (4.00-5.20); White Blood Cell Count 8.82 k/cumm (4.4-10.8)
[2019-01-17 07:30] VITALS: PULSE 92
[2019-01-17] MEDS: Normal Saline Flush 10 ML SYR IVP (07:32)
[2019-01-17] MEDS: buPROPion-CR 150 MG TABCR PO (07:33)
[2019-01-17] MEDS: Metoprolol 25 MG TAB PO (07:33)
[2019-01-17] MEDS: Magnesium Oxide 400 MG TAB PO (07:33)
[2019-01-17 07:36] VITALS: BP 160/94; PULSE 89; RESP 16; TEMP 36.6; O2SAT 98
[2019-01-17 07:37] LABS: Anion Gap 9.3 mmol/L (3-11); BUN 34 mg/dL (7-18); CO2 24.7 mmol/L (21.0-32.0); CREATININE 1.62 mg/dL (0.55-1.02); Calcium 8.8 mg/dL (8.5-10.1); Chloride 104 mmol/L (98-107); Estimated GFR 32.64 (mL/min/1.73m2); Glucose 185 mg/dL (70-100); Magnesium 1.8 mg/dL (1.8-2.4); Potassium 4.1 mmol/L (3.5-5.1); Sodium 138 mmol/L (136-145)
[2019-01-17 07:43] LABS: Troponin I < 0.02 ng/mL (0.00-0.06)
[2019-01-17] MEDS: DULoxetine 30 MG CAP 60 MG PO (08:26)
[2019-01-17] MEDS: Fexofenadine 180 MG TAB PO (08:26)
[2019-01-17] MEDS: Aspirin 81 MG CHEW PO (08:26)
[2019-01-17] MEDS: Insulin Aspart 300 UNITS/3 ML PEN SC (08:27)
[2019-01-17] MEDS: Dexlansoprazole 30 MG CAP 60 MG PO (08:27)
[2019-01-17] MEDS: Insulin Glargine 300 UNITS/3 ML PEN 30 UNITS SC (08:30)
[2019-01-17 08:41] VITALS: BP 110/72; PULSE 75
[2019-01-17] MEDS: Acetaminophen 325 MG TAB 650 MG PO (10:19)
[2019-01-17 10:23] VITALS: BP 120/80; PULSE 78; RESP 20; TEMP 36.7; O2SAT 97
--- NOTE | 2019-01-17 12:23 | DSE_ITS ---
Date of service: 01/17/19 Time of Service: 10:30 DS: Diagnosis Discharge Diagnosis (1) Chest pain: Status: Acute (2) CAD (coronary atherosclerotic disease): Status: Acute (3) Hypertension: Status: Chronic (4) Insomnia: Status: Acute (5) GERD (gastroesophageal reflux disease): Status: Chronic (6) Type 2 diabetes mellitus: Status: Acute (7) Chronic kidney disease: Status: Acute (8) COPD (chronic obstructive pulmonary disease): Status: Chronic (9) Mixed anxiety depressive disorder: Status: Acute (10) DVT prophylaxis: Status: Acute (11) Discharge planning issues: Status: Acute Discharge Plan Disposition Patient Disposition: HOME Condition: Stable Discharge Details Reason For Visit: CHEST PAIN Admit Date/Time: 01/16/19 14:19 Admit Provider: Nolan Saenz Attending Provider: Nolan Saenz Primary Care Provider: Maylin Garcia [facility] Course Hospital Course: patient reports that she has had several episodes of the chest pain over that past 2 weeks since she was treated for a copd exacerbation with steroids, her course of steroids ended yesterday. she states that her pain is over her epigas tric area and radiates to the right. 58-year-old female with history of insulin dependent diabetes, hypertension, coronary artery disease status post stenting in 2005 and again in 2006, stage III kidney disease, presented to the ED with chest pain that occurred at rest. Reports chest pain started this morning around 1045. She took a nitroglycerin sublingual tablet that did seem to resolve pain. She again experienced chest pain around 1130 and took a second nitroglycerin which helped minimally. Pain persisted and she took another nitroglycerin around 1145. This did help and she had subsequent resolution of pain in route to [facility]. Her pain was localized to central chest and radiated across her chest, to her mid back and down her right arm. Patient denies associated diaphoresis, nausea or syncope. No associated shortness of breath. No leg swelling or calf tenderness. Patient did not yet take her aspirin today or antihypertensives yet today as she usually takes these medications around 1 PM. She was given 325 mg of asa. routine cardiac work up initiated. work up in the ED shows a negative troponin and EKG with no acute changes. She was experiencing anxiety and requested lorazepam and received 0.5 mg, she also received nitro sl and was placed on a nitro drip as her pain re-occurred. She was also given a GI cocktail and magnesium replacement for a mag of 1.6. review of labs show stable creatinine at baseline of 1.62. she was referred to observation for chest pain rule out [place]. She has been chest pain free. nitro drip was discontinued and she was admitted to med/surg on telemetry. Overnight she had fleeting episodes of chest pain that resolved spontaneously. her serial troponins remained negative, her EKG with no acute ST segment changes. She had these symptoms on nitropaste and again, resolved without intervention. We discussed adding metoprolol which she declines, stating her pcp discontinued it as she was reporting near black outs while on it. Her case with discussed with cardiology at [facility] and they confirmed that given lack of availability for echocardiogram and cardiac stress testing recommendations are for outpatient cardiology evaluation as soon as possible . She will be discharged to resume her usual medications. 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 Home Meds and New Rx's Prescriptions: Continued lorazepam [Ativan] 0.5 mg tablet 0.5 mg PO DAILY PRNRF: 0 albuterol sulfate 1.25 MG/3 ML solution for nebulization 2.5 mg Inhalation QID PRNRF: 0 albuterol sulfate [ProAir HFA] 8.5 GM HFA aerosol inhaler 2 puff Inhalation Q4H PRN RF: 0 zolpidem 10 MG tablet 10 mg PO HS RF: 0 duloxetine [Cymbalta] 60 MG capsule,delayed release(DR/EC) 60 mg PO DAILY RF: 0 nitroglycerin [Nitrostat] 0.4 MG tablet, sublingual 0.4 mg Sublingual PRN PRNRF: 0 atorvastatin [Lipitor] 40 MG tablet 40 mg PO QPM Qty: 30 RF: 0 Novolog Flexpen U-100 Insulin 300 UNITS/3 ML insulin pen Sub-Q 0800,1200,1700 Qty: 1 RF: 1 aspirin 81 mg Tablet,Chewable 1 tab PO DAILY RF: 0 lisinopril 2.5 mg Tablet 1 tab PO DAILY RF: 0 bupropion HCl 150 mg Tablet Extended Release 12 Hr 150 mg PO BID RF: 0 fexofenadine 180 mg Tablet 180 mg PO DAILY RF: 0 Novolog PenFill U-100 Insulin 100 unit/mL Cartridge 40 unit subcut DAILY RF: 0 Basaglar KwikPen U-100 Insulin 100 unit/mL (3 mL) Insulin Pen 40 unit subcut DAILY RF: 0 Dexilant 60 mg Capsule,Biphase Delayed Releas 1 tab PO DAILY RF: 0 magnesium oxide 250 mg tablet 400 mg PO BID RF: 0 Discharge Instructions Instructions: Chest Pain (DC) Additional Instructions: continue usual medications as directed. call cardiology and pcp office first thing Friday to schedule follow up appointments. Stand Alone Forms: Nursing Discharge Form Referrals: Maylin Garcia [Primary Care Provider] - Activity:: Activity as Tolerated Equipment/Supplies:: No Equipment Needed Diet:: Carb Counting Discharge Orders Discharge Orders: Discharge Order (Routine); Ordered 01/17/19 Ordered By: Karrie Landin Exam Const General: cooperative, comfortable, no acute distress and ill appearing (older than stated age) chronically Nutritional Appearance: obese Orientation: alert, awake and oriented x3 HENMT Head: normal to inspection, normocephalic and atraumatic Mouth: oral mucosae normal Neck Neck: normal visual inspection and full ROM Resp Effort & Inspection: normal respiratory effort, able to speak in complete sentences and no cough Auscultation: clear to auscultation bilaterally and diminished lung sounds bilaterally in the lower lung coyne Cardio Jugular venous pressure: no JVD Rate: regular rate Rhythm: regular rhythm GI Inspection: normal to inspection Palpation: soft and nontender Auscultation: normal bowel sounds Skin General skin exam: no rashes or lesions noted Neuro General: alert, awake and oriented x3 Extrem General: normal to inspection, full ROM and edema Laterality: bilateral (trace) DS: Data Vitals/I&O Vitals and I&O: Vital Signs Temperature 36.7 C 01/17/19 10:23 Temperature Source Tympanic 01/17/19 10:23 Pulse 78 01/17/19 10:23 Pulse Rhythm Regular 01/17/19 07:35 Pulse 95 H 01/16/19 13:36 Respiratory Rate 20 01/17/19 10:23 Respiratory Effort Non-Labored 01/17/19 10:23 Respiratory Depth Normal 01/17/19 07:35 Respiratory Pattern Normal 01/17/19 07:35 Blood Pressure 120/80 01/17/19 10:23 Blood Pressure Mean 76 01/16/19 13:36 Pulse Oximetry 97 01/17/19 10:23 Oxygen Delivery Method Room Air 01/17/19 10:23 Oxygen Flow Rate 0 01/17/19 10:23 Pain Level 2 01/17/19 11:19 Comment 01/17/19 10:23 Intake & Output 01/16/19 01/17/19 01/17/19 23:59 11:59 23:59 Intake Total 247.0 / 247.0 660 / 660 Output Total 400 / 400 1175 / 1175 Balance -153.0 / -153.0 -515 / -515 Weight 94.7 kg Intake: IV 7.0 / 7.0 Oral 240 / 240 660 / 660 Output: Urine 400 / 400 1175 / 1175 Other: Urine Color Yellow Yellow Urine Appearance Clear Clear Urine Odor Strong Comment Pt report stress incontinence with coughing and sneezing. UP to toilet to void Voiding Methods Toilet Toilet Labs on day of discharge: Labs from last 24 hours 01/17/19 01/17/19 01/16/19 06:40 06:40 20:50 WBC 8.82 RBC 3.57 L Hgb 10.9 L Hct 33.4 L MCV 93.6 MCH 30.5 MCHC 32.6 RDW 13.0 Plt Count 277 MPV 9.8 Immature Gran % Neutrophils % Lymphocytes % Monocytes % Eosinophils % Basophils % Absolute Neutrophils Absolute Lymphocytes Absolute Monocytes Absolute Eosinophils Absolute Basophils APTT Sodium 138 Potassium 4.1 Chloride 104 Carbon Dioxide 24.7 Anion Gap 9.3 BUN 34 H Creatinine 1.62 H Estimated GFR/1.73 m2 32.64 Glucose 185 H Calcium 8.8 Magnesium 1.8 Total Bilirubin AST ALT Alkaline Phosphatase Troponin I < 0.02 < 0.02 Total Protein Albumin 01/16/19 01/16/19 01/16/19 18:00 15:37 12:19 WBC RBC Hgb Hct MCV MCH MCHC RDW Plt Count MPV Immature Gran % Neutrophils % Lymphocytes % Monocytes % Eosinophils % Basophils % Absolute Neutrophils Absolute Lymphocytes Absolute Monocytes Absolute Eosinophils Absolute Basophils APTT 21.9 Sodium Potassium Chloride Carbon Dioxide Anion Gap BUN Creatinine Estimated GFR/1.73 m2 Glucose Calcium Magnesium Total Bilirubin AST ALT Alkaline Phosphatase Troponin I Cancelled < 0.02 Total Protein Albumin 01/16/19 01/16/19 12:19 12:19 WBC 11.64 H RBC 3.92 L Hgb 12.2 Hct 36.6 MCV 93.4 MCH 31.1 MCHC 33.3 RDW 13.0 Plt Count 312 MPV 9.8 Immature Gran % 1.0 Neutrophils % 64.4 Lymphocytes % 25.3 Monocytes % 6.2 Eosinophils % 2.6 Basophils % 0.5 Absolute Neutrophils 7.50 H Absolute Lymphocytes 2.94 Absolute Monocytes 0.72 H Absolute Eosinophils 0.30 Absolute Basophils 0.06 APTT Sodium 141 Potassium 4.2 Chloride 105 Carbon Dioxide 27.2 Anion Gap 8.8 BUN 40 H Creatinine 1.62 H Estimated GFR/1.73 m2 32.64 Glucose 132 H Calcium 9.0 Magnesium 1.6 L Total Bilirubin 0.3 AST 13 L ALT 28 Alkaline Phosphatase 123 H Troponin I < 0.02 Total Protein 7.4 Albumin 3.3 L [facility] Medical History Coronary artery disease (Chronic) Diabetes (Chronic) Hypertension (Chronic) Renal insufficiency (Chronic) Depression Diabetes Insomnia Surgical History Appendectomy section Cholecystectomy Coronary Stent Family History Grandmother No problems noted. Social History Smoking/Tobacco Use Status: Current every day Alcohol Intake: never Drug use: Never Substance use type: does not use Do you feel safe in your relationship?: Yes
--- NOTE | 2019-01-17 14:06 | PDOC.CMIN ---
- If Service Date Differs Date of service: 01/17/19 Time of Service: 10:00 Care Management Initial Assess REASON FOR HOSPITALIZATION:: Chest pain PAST MEDICAL HISTORY/PAST SURGICAL HISTORY:: Coronary artery disease (Chronic). Diabetes (Chronic). Hypertension (Chronic). Renal insufficiency (Chronic). Depression. Diabetes. Insominia. Surgical Hx: Appendectomy. section. Cholecystectomy. Coronary Stent PREVIOUS FUNCTIONAL STATUS/SOCIAL/FAMILY SUPPORTS:: Nimisha lives in a home in [place], [place]. She has two daughters and four grandchildren that live with her. She provides care to two of her grandchidren daily one has autisim. She states she is indepedent with care at home. She does drive however she does not have a car and is dependent of friends for transportation. She states she has a long histroy of chest pain. she last filled her Nitro tabs back in March 2018. CURRENT FUNCTIONAL STATUS:: Nimisha is engaged during assessment. She states she likes to receive information in 'real terms' not lab values. She reports that she met with her new provider on Friday at that time her medications where adjusted. She states that she was transition to lisinopril for her blood pressure (she states her provider told her she has stage 3 kidney disease). She states at one time she was taking two types of medicaton for blood pressure and chest pain which where giving her blackouts. She reports if the medciation she is taking has side effects that she feels affect her caring for her grand children she will not take it. She describes herself as stuborn and a self advocate. She reports her first priority is her family and being able to care for her grandchildren. She does report she has close follow up with cardiology and she has an appointment on 01/28/19. ADVANCE DIRECTIVES:: On file at [facility] agent is Denae (daughter) Has patient been provided with information about the portal?: Yes Did the patient sign up for the portal?: No CODE STATUS:: Full Code INSURANCE COVERAGE / FINANCIAL ISSUES:: Medicare and Medicaid CURRENT HOME/COMMUNITY SERVICES/EQUIPMENT:: Cane when needed. Refuses [facility] for transportation states they have left her stranded to many times. PRIMARY CARE PHYSICIAN:: Maylin Garcia POTENTIAL DISCHARGE NEEDS:: Follow up as scheduled with Cardiology, stress test and echo as outpatient if recomended by cardiology. PATIENT/FAMILY EDUCATION NEEDS:: Discharge education, limitaitons and follow up plan of care including self management and ask me three. ANTICIPATED BARRIERS TO DISCHARGE:: None identified TRANSPORTATION:: Via private car with friend at time of discharge. PLAN:: Nimisha will be discharged home today when medically cleared. She has an active prescirption for nitro at home and at the pharmacy. Recomended she check the exp date on her bottle and refill if it is due. She reports no pain during CM assessment and per provider she will be discharged home this afternoon. She has an appointment already scheduled with cardiology on 01/28/19. to continue to provide support to pt ongoing discharge planning.
[2019-01-17 14:23] VITALS: PULSE 81
== END 2019-01-17 14:28 | disposition home or self-care (01) ==
LOC: ER 14:59 → MS 15:00
PROVIDERS: Nurse Practitioner Acute Care; Admitting Provider Internal Medicine; Emergency Provider Student in an Organized Health Care Education/Training Program; PCP Nurse Practitioner Family; Visit Provider Internal Medicine
DX: R07.9 Chest pain, unspecified (principal); I25.10 Atherosclerotic heart disease of native coronary artery without angina pectoris; R10.13 Epigastric pain; E83.42 Hypomagnesemia; G47.00 Insomnia, unspecified; E10.22 Type 1 diabetes mellitus with diabetic chronic kidney disease; J44.9 Chronic obstructive pulmonary disease, unspecified; F17.210 Nicotine dependence, cigarettes, uncomplicated; F41.8 Other specified anxiety disorders; K21.9 Gastro-esophageal reflux disease without esophagitis; N18.3 Chronic kidney disease, stage 3 (moderate); I12.9 Hypertensive chronic kidney disease with stage 1 through stage 4 chronic kidney disease, or unspecified chronic kidney disease; Z95.5 Presence of coronary angioplasty implant and graft; Z71.3 Dietary counseling and surveillance
CPT/HCPCS: 36415; 80048; 80053; 85027; 96365; 96366; 99217; 99220; 99285; 71045; 83735; 84484; 85025; 85730; 93005; 93010; G0378; J1644; J3490

== ENCOUNTER → 2019-01-29 08:52 | Outpatient (BNVA) | payer MEDICARE, MEDICAID, SELFPAY | PROVIDERS: PCP Nurse Practitioner Family; Visit Provider Internal Medicine Cardiovascular Disease | DX: I25.119 Atherosclerotic heart disease of native coronary artery with unspecified angina pectoris (principal); I12.9 Hypertensive chronic kidney disease with stage 1 through stage 4 chronic kidney disease, or unspecified chronic kidney disease; E10.22 Type 1 diabetes mellitus with diabetic chronic kidney disease; J44.9 Chronic obstructive pulmonary disease, unspecified; F17.210 Nicotine dependence, cigarettes, uncomplicated; N18.9 Chronic kidney disease, unspecified; R06.02 Shortness of breath | CPT/HCPCS: 99214 ==

== ENCOUNTER 2019-01-30 13:52 | Emergency (ER) | payer MEDICARE, MEDICAID, SELFPAY ==
[2019-01-30 13:55] VITALS: BP 152/82; PULSE 121; RESP 16; TEMP 36.8; O2SAT 98
[2019-01-30 14:39] LABS: C & S Indicated? Yes
--- NOTE | 2019-01-30 15:05 | W.ED.GENAD ---
Discharge Plan Disposition Patient Disposition: HOME Condition: Good Discharge Details Chief Complaint: Urinary Clinical Impression: Acute UTI Primary Care Provider: Maylin Garcia ED Provider: Lionel Hancock Home Meds and New Rx's Prescriptions: New cephalexin [Keflex] 500 mg capsule 500 mg PO QID 7 Days Qty: 28 RF: 0 Continued varenicline 0.5 mg (11)- 1 mg (42) tablets,dose pack See Rx Instructions PO PER PKG DIR RF: 0 lorazepam [Ativan] 0.5 mg tablet 0.5 mg PO DAILY PRNRF: 0 albuterol sulfate 1.25 MG/3 ML solution for nebulization 2.5 mg Inhalation QID PRNRF: 0 albuterol sulfate [ProAir HFA] 8.5 GM HFA aerosol inhaler 2 puff Inhalation Q4H PRN RF: 0 zolpidem 10 MG tablet 10 mg PO HS RF: 0 duloxetine [Cymbalta] 60 MG capsule,delayed release(DR/EC) 60 mg PO DAILY RF: 0 nitroglycerin [Nitrostat] 0.4 MG tablet, sublingual 0.4 mg Sublingual PRN PRNRF: 0 atorvastatin [Lipitor] 40 MG tablet 40 mg PO QPM Qty: 30 RF: 0 Novolog Flexpen U-100 Insulin 300 UNITS/3 ML insulin pen Sub-Q 0800,1200,1700 Qty: 1 RF: 1 aspirin 81 mg Tablet,Chewable 1 tab PO DAILY RF: 0 lisinopril 2.5 mg Tablet 1 tab PO DAILY RF: 0 bupropion HCl 150 mg Tablet Extended Release 12 Hr 150 mg PO BID RF: 0 fexofenadine 180 mg Tablet 180 mg PO DAILY RF: 0 Novolog PenFill U-100 Insulin 100 unit/mL Cartridge 40 unit subcut DAILY RF: 0 Basaglar KwikPen U-100 Insulin 100 unit/mL (3 mL) Insulin Pen 40 unit subcut DAILY RF: 0 Dexilant 60 mg Capsule,Biphase Delayed Releas 1 tab PO DAILY RF: 0 magnesium oxide 250 mg tablet 400 mg PO BID RF: 0 Discharge Instructions Instructions: Urinary Tract Infection in Women (ED) Additional Instructions: A urine culture was sent as we were unable to process your urine test due to presence of Pyridium. It is important that you return promptly if you develop a fever, chills, lethargy, back pain. Follow-up with your primary care provider in 5 to 7 days. Discharge Data Discharge Date/Time-TO BE ENTERED AT DEPARTURE: 01/30/19 15:51 HPI Patient presents with 3 days of dysuria. Symptoms consistent with prior UTIs. She is taking Pyridium.no fever, chills, lethargy, back pain. General Date/Time Provider Initiated Documentation: 01/30/19 15:03. Related Data Home Medications Medication Instructions Recorded Confirmed duloxetine [Cymbalta] 60 mg PO DAILY 12/19/15 01/29/19 zolpidem 10 mg PO HS 12/19/15 01/29/19 nitroglycerin [Nitrostat] 0.4 mg SUBLINGUAL PRN PRN 06/01/17 01/29/19 Novolog Flexpen U-100 Insulin 0 units SUB-Q 0800,1200,1700 #1 ea 06/04/17 01/29/19 atorvastatin [Lipitor] 40 mg PO QPM #30 tab 06/04/17 01/29/19 albuterol sulfate 2.5 mg INHALATION QID PRN ml 07/10/17 01/29/19 albuterol sulfate [ProAir HFA] 2 puff INHALATION Q4H PRN inhaler 07/10/17 01/29/19 aspirin 1 tab PO DAILY 04/26/18 01/29/19 lisinopril 1 tab PO DAILY 04/26/18 01/29/19 Basaglar KwikPen U-100 Insulin 40 unit SUBCUT DAILY 05/10/18 01/29/19 Dexilant 1 tab PO DAILY 05/10/18 01/29/19 Novolog PenFill U-100 Insulin 40 unit SUBCUT DAILY 05/10/18 01/29/19 bupropion HCl 150 mg PO BID 05/10/18 01/29/19 fexofenadine 180 mg PO DAILY 05/10/18 01/29/19 lorazepam 0.5 mg tablet 0.5 mg PO DAILY PRN tab 06/25/18 01/29/19 magnesium oxide 400 mg PO BID 10/28/18 01/29/19 varenicline 0.5 mg (11)-1 mg (42) See Rx Instructions PO PER PKG DIR 01/29/19 01/29/19 tablets in a dose pack cephalexin [Keflex] 500 mg PO QID 7 Days #28 cap 01/30/19 Previous Rx's Medication Instructions Recorded Novolog Flexpen U-100 Insulin 0 units SUB-Q 0800,1200,1700 #1 ea 06/04/17 atorvastatin [Lipitor] 40 mg PO QPM #30 tab 06/04/17 cephalexin [Keflex] 500 mg PO QID 7 Days #28 cap 01/30/19 Allergies Allergy/AdvReac Type Severity Reaction Status Date / Time amoxicillin [From Augmentin] Allergy Unverified 01/29/19 09:22 clavulanic acid Allergy Unverified 01/29/19 09:22 [From Augmentin] Penicillins Allergy Unverified 01/29/19 09:22 Sulfa (Sulfonamide Allergy Unverified 01/29/19 09:22 Antibiotics) amitriptyline AdvReac made my Unverified 01/29/19 09:22 face go numb amoxicillin trihydrate AdvReac acute Unverified 01/29/19 09:22 [From Augmentin] kidney failure NSAIDS (Non-Steroidal AdvReac stage III Unverified 01/29/19 09:22 Anti-Inflamma kidney disease potassium clavulanate AdvReac acute Unverified 01/29/19 09:22 [From Augmentin] kidney failure General Stated Complaint: Urinary SADE: 4 Review of Systems Constitutional Denies chills, Denies fatigue, Denies fever(s) and Denies lethargy Cardiovascular Denies chest pain and Denies dyspnea Respiratory Denies cough and Denies dyspnea Gastrointestinal Denies abdominal pain, Denies nausea and Denies vomiting Musculoskeletal Denies back pain, Denies muscle weakness and Denies numbness Integumentary/Breasts Denies rash Neurologic Denies numbness Endocrine Denies fatigue Hematologic/Lymphatic Denies easy bruising PFSH Social History Smoking/Tobacco Use Status: Current every day Quit status: considering quitting Alcohol Intake: never Drug use: Never Substance use type: does not use Do you feel safe at home: Yes Do you feel safe in your relationship?: Yes Exam Const General: cooperative and comfortable HENMT Mouth: moist mucous membranes Eyes Conjunctivae: conjunctivae normal Sclera: sclerae normal Neck Neck: trachea midline Resp Effort & Inspection: normal respiratory effort and able to speak in complete sentences Skin General skin exam: no rashes or lesions noted Neuro General: alert, awake, tone normal and moves all extremities Course Vital Signs Temperature 36.8 C 01/30/19 13:55 Pulse 121 H 01/30/19 13:55 Respiratory Rate 16 01/30/19 13:55 Blood Pressure 152/82 H 01/30/19 13:55 Pulse Oximetry 98 01/30/19 13:55 Temperature 36.8 C 01/30/19 13:55 Temperature Source Temporal Artery Scan 01/30/19 13:55 Pulse 121 H 01/30/19 13:55 Respiratory Rate 16 01/30/19 13:55 Respiratory Effort 01/30/19 13:55 Blood Pressure 152/82 H 01/30/19 13:55 Pulse Oximetry 98 01/30/19 13:55 Oxygen Delivery Method Room Air 01/30/19 13:55 Oxygen Flow Rate 0 01/30/19 13:55 Pain Level 6 01/30/19 14:00 Lab/Test Results Lab/Test Results: 01/30/19 13:56 Urine - Reflex from Ua Urine Culture - Pending Laboratory Tests Range/Units 01/30/19 13:56 Urine Color Cancelled Urine Clarity Cancelled Urine pH Cancelled Ur Specific [place] Cancelled Urine Protein Cancelled Urine Ketones Cancelled Urine Blood Cancelled Urine Nitrite Cancelled Urine Bilirubin Cancelled Urine Urobilinogen Cancelled Ur Leukocyte Esterase Cancelled Urine RBC Not Applicable Urine WBC (0-5) HPF Ur Epithelial Cells Not Applicable Urine Crystals Not Applicable Urine Bacteria Not Applicable Urine Mucus Not Applicable Ur Culture Indicated? Yes Urine Glucose Cancelled
[2019-01-30 15:31] VITALS: PULSE 115
--- NOTE | 2019-02-02 17:49 | W.ED.GENAD ---
Discharge Plan Disposition Patient Disposition: HOME Condition: Good Discharge Details Chief Complaint: Urinary Clinical Impression: Acute UTI Primary Care Provider: Maylin Garcia ED Provider: Lionle Hancock Home Meds and New Rx's Prescriptions: New cephalexin [Keflex] 500 mg capsule 500 mg PO QID 7 Days Qty: 28 RF: 0 Continued varenicline 0.5 mg (11)- 1 mg (42) tablets,dose pack See Rx Instructions PO PER PKG DIR RF: 0 lorazepam [Ativan] 0.5 mg tablet 0.5 mg PO DAILY PRNRF: 0 albuterol sulfate 1.25 MG/3 ML solution for nebulization 2.5 mg Inhalation QID PRNRF: 0 albuterol sulfate [ProAir HFA] 8.5 GM HFA aerosol inhaler 2 puff Inhalation Q4H PRN RF: 0 zolpidem 10 MG tablet 10 mg PO HS RF: 0 duloxetine [Cymbalta] 60 MG capsule,delayed release(DR/EC) 60 mg PO DAILY RF: 0 nitroglycerin [Nitrostat] 0.4 MG tablet, sublingual 0.4 mg Sublingual PRN PRNRF: 0 atorvastatin [Lipitor] 40 MG tablet 40 mg PO QPM Qty: 30 RF: 0 Novolog Flexpen U-100 Insulin 300 UNITS/3 ML insulin pen Sub-Q 0800,1200,1700 Qty: 1 RF: 1 aspirin 81 mg Tablet,Chewable 1 tab PO DAILY RF: 0 lisinopril 2.5 mg Tablet 1 tab PO DAILY RF: 0 bupropion HCl 150 mg Tablet Extended Release 12 Hr 150 mg PO BID RF: 0 fexofenadine 180 mg Tablet 180 mg PO DAILY RF: 0 Novolog PenFill U-100 Insulin 100 unit/mL Cartridge 40 unit subcut DAILY RF: 0 Basaglar KwikPen U-100 Insulin 100 unit/mL (3 mL) Insulin Pen 40 unit subcut DAILY RF: 0 Dexilant 60 mg Capsule,Biphase Delayed Releas 1 tab PO DAILY RF: 0 magnesium oxide 250 mg tablet 400 mg PO BID RF: 0 Discharge Instructions Instructions: Urinary Tract Infection in Women (ED) Additional Instructions: A urine culture was sent as we were unable to process your urine test due to presence of Pyridium. It is important that you return promptly if you develop a fever, chills, lethargy, back pain. Follow-up with your primary care provider in 5 to 7 days. Discharge Data Discharge Date/Time-TO BE ENTERED AT DEPARTURE: 01/30/19 15:51 Medical Decision Making Nimisha presents with dysuria and frequency consistent with prior UTIs. She is well-appearing, without abdominal tenderness or flank pain. She is tolerating p.o. We were unable to obtain an accurate UA due to the presence of Pyridium. A urine culture was sent. We will initiate antibiotics, an antibiotic prescription has been written. Nimisha is to follow-up with her primary care provider for reevaluation, here sooner if symptoms worsen or fail to improve within the next 2 to 3 days. Medical Records Medical records reviewed: Yes I reviewed the patient's medical records. Lab Data Lab results reviewed: Yes I reviewed the patient's lab results. HPI Nimisha presents with dysuria and frequency, ongoing for the past 2 days. Symptoms are consistent with prior UTIs. She is taking Pyridium for her symptoms. She denies fever, chills, flank pain, lethargy, nausea. No additional complaints or concerns. General Date/Time Provider Initiated Documentation: 01/30/19 15:03. Related Data Home Medications Medication Instructions Recorded Confirmed duloxetine [Cymbalta] 60 mg PO DAILY 12/19/15 01/29/19 zolpidem 10 mg PO HS 12/19/15 01/29/19 nitroglycerin [Nitrostat] 0.4 mg SUBLINGUAL PRN PRN 06/01/17 01/29/19 Novolog Flexpen U-100 Insulin 0 units SUB-Q 0800,1200,1700 #1 ea 06/04/17 01/29/19 atorvastatin [Lipitor] 40 mg PO QPM #30 tab 06/04/17 01/29/19 albuterol sulfate 2.5 mg INHALATION QID PRN ml 07/10/17 01/29/19 albuterol sulfate [ProAir HFA] 2 puff INHALATION Q4H PRN inhaler 07/10/17 01/29/19 aspirin 1 tab PO DAILY 04/26/18 01/29/19 lisinopril 1 tab PO DAILY 04/26/18 01/29/19 Basaglar KwikPen U-100 Insulin 40 unit SUBCUT DAILY 05/10/18 01/29/19 Dexilant 1 tab PO DAILY 05/10/18 01/29/19 Novolog PenFill U-100 Insulin 40 unit SUBCUT DAILY 05/10/18 01/29/19 bupropion HCl 150 mg PO BID 05/10/18 01/29/19 fexofenadine 180 mg PO DAILY 05/10/18 01/29/19 lorazepam 0.5 mg tablet 0.5 mg PO DAILY PRN tab 06/25/18 01/29/19 magnesium oxide 400 mg PO BID 10/28/18 01/29/19 varenicline 0.5 mg (11)-1 mg (42) See Rx Instructions PO PER PKG DIR 01/29/19 01/29/19 tablets in a dose pack cephalexin [Keflex] 500 mg PO QID 7 Days #28 cap 01/30/19 Previous Rx's Medication Instructions Recorded Novolog Flexpen U-100 Insulin 0 units SUB-Q 0800,1200,1700 #1 ea 06/04/17 atorvastatin [Lipitor] 40 mg PO QPM #30 tab 06/04/17 cephalexin [Keflex] 500 mg PO QID 7 Days #28 cap 01/30/19 Allergies Allergy/AdvReac Type Severity Reaction Status Date / Time amoxicillin [From Augmentin] Allergy Unverified 01/29/19 09:22 clavulanic acid Allergy Unverified 01/29/19 09:22 [From Augmentin] Penicillins Allergy Unverified 01/29/19 09:22 Sulfa (Sulfonamide Allergy Unverified 01/29/19 09:22 Antibiotics) amitriptyline AdvReac made my Unverified 01/29/19 09:22 face go numb amoxicillin trihydrate AdvReac acute Unverified 01/29/19 09:22 [From Augmentin] kidney failure NSAIDS (Non-Steroidal AdvReac stage III Unverified 01/29/19 09:22 Anti-Inflamma kidney disease potassium clavulanate AdvReac acute Unverified 01/29/19 09:22 [From Augmentin] kidney failure General Stated Complaint: Urinary SADE: 4 Review of Systems Constitutional Denies chills, Denies fatigue, Denies fever(s) and Denies lethargy Eyes Denies loss of vision ENT Denies nasal congestion and Denies sore throat Cardiovascular Denies chest pain and Denies dyspnea Respiratory Denies cough and Denies dyspnea Gastrointestinal Denies abdominal pain, Denies nausea and Denies vomiting Musculoskeletal Denies back pain, Denies muscle weakness and Denies numbness Integumentary/Breasts Denies rash Neurologic Denies focal weakness, Denies loss of vision and Denies numbness Endocrine Denies fatigue Hematologic/Lymphatic Denies easy bruising [facility] Medical History Coronary artery disease (Chronic) Diabetes (Chronic) Hypertension (Chronic) Renal insufficiency (Chronic) Depression Diabetes Insomnia Social History Smoking/Tobacco Use Status: Current every day Quit status: considering quitting Alcohol Intake: never Drug use: Never Substance use type: does not use Do you feel safe at home: Yes Do you feel safe in your relationship?: Yes Exam Const General: cooperative, healthy appearing and no acute distress HENMT Head: normal to inspection Ears: hearing grossly normal bilaterally Eyes EOM: EOM intact bilaterally Neck Neck: normal visual inspection Resp Effort & Inspection: normal respiratory effort Auscultation: clear to auscultation bilaterally Cardio Rate: regular rate Rhythm: regular rhythm Heart Sounds: no murmurs GI Palpation: soft and nontender Back/Spine/Pelvis Back: no CVA tenderness Skin General skin exam: no rashes or lesions noted Neuro General: alert, awake and oriented x3 Speech: speech normal Gait: normal gait Extrem General: normal to inspection Course Vital Signs Temperature 36.8 C 01/30/19 13:55 Pulse 121 H 01/30/19 13:55 Respiratory Rate 16 01/30/19 13:55 Blood Pressure 152/82 H 01/30/19 13:55 Pulse Oximetry 98 01/30/19 13:55 Temperature 36.8 C 01/30/19 13:55 Temperature Source Temporal Artery Scan 01/30/19 13:55 Pulse 115 H 01/30/19 15:31 Respiratory Rate 16 01/30/19 13:55 Respiratory Effort 01/30/19 13:55 Blood Pressure 152/82 H 01/30/19 13:55 Pulse Oximetry 98 01/30/19 13:55 Oxygen Delivery Method Room Air 01/30/19 13:55 Oxygen Flow Rate 0 01/30/19 13:55 Pain Level 6 01/30/19 14:00 Lab/Test Results Lab/Test Results: 01/30/19 13:56 Urine - Reflex from Ua Urine Culture - Final Escherichia coli Laboratory Tests Range/Units 01/30/19 13:56 Urine Color Cancelled Urine Clarity Cancelled Urine pH Cancelled Ur Specific [place] Cancelled Urine Protein Cancelled Urine Ketones Cancelled Urine Blood Cancelled Urine Nitrite Cancelled Urine Bilirubin Cancelled Urine Urobilinogen Cancelled Ur Leukocyte Esterase Cancelled Urine RBC Not Applicable Urine WBC (0-5) HPF Ur Epithelial Cells Not Applicable Urine Crystals Not Applicable Urine Bacteria Not Applicable Urine Mucus Not Applicable Ur Culture Indicated? Yes Urine Glucose Cancelled
== END 2019-01-30 15:51 | disposition home or self-care (01) ==
PROVIDERS: Emergency Provider Physician Assistant Medical; PCP Nurse Practitioner Family
DX: N39.0 Urinary tract infection, site not specified (principal); B96.20 Unspecified Escherichia coli [E. coli] as the cause of diseases classified elsewhere; Z87.440 Personal history of urinary (tract) infections; E11.9 Type 2 diabetes mellitus without complications; I12.9 Hypertensive chronic kidney disease with stage 1 through stage 4 chronic kidney disease, or unspecified chronic kidney disease; N18.9 Chronic kidney disease, unspecified
CPT/HCPCS: 87077; 99283; 81003; 81015; 87086; 87186

== ENCOUNTER 2019-02-15 12:02 | Emergency (ER) | payer MEDICARE, MEDICAID, SELFPAY ==
[2019-02-15 12:10] VITALS: BP 114/79; PULSE 109; RESP 18; TEMP 36.6; O2SAT 100
[2019-02-15 12:50] LABS: Blood Large (Negative); Clarity Cloudy (Clear); Leukocyte Esterase Large (Negative)
[2019-02-15 13:04] LABS: Bilirubin Small (Negative); Glucose Negative (Negative); Ketones Trace mg/dL (Negative); Nitrite Negative (Negative); Specific Gravity 1.025 (1.005-1.025); Urobilinogen 0.2 EU/dL (Up TO 0.2); pH 5.5 (5-8)
[2019-02-15 13:06] LABS: Bacteria Many HPF (Negative); C & S Indicated? Yes; Casts Negative LPF (Negative); Crystals Negative HPF (Negative); Epithelial Cells Few HPF (Negative); Mucus Negative (Negative); RBC >50 (0-2); WBC >50 HPF (0-5)
--- NOTE | 2019-02-15 13:37 | ED.GENADUL_ITS ---
Discharge Plan Disposition Patient Disposition: HOME Condition: Good Discharge Details Chief Complaint: Urinary Clinical Impression: Acute pyelonephritis Primary Care Provider: Maylin Garcia ED Provider: Lionel Hancock Home Meds and New Rx's Prescriptions: New ciprofloxacin HCl 500 mg tablet 500 mg PO BID 7 Days Qty: 14 RF: 0 Continued varenicline 0.5 mg (11)- 1 mg (42) tablets,dose pack 1 dose pk PO DIRECTED RF: 0 lorazepam [Ativan] 0.5 mg tablet 0.5 mg PO DAILY PRNRF: 0 albuterol sulfate 1.25 MG/3 ML solution for nebulization 2.5 mg Inhalation QID PRNRF: 0 albuterol sulfate [ProAir HFA] 8.5 GM HFA aerosol inhaler 2 puff Inhalation Q4H PRN RF: 0 zolpidem 10 MG tablet 10 mg PO HS RF: 0 duloxetine [Cymbalta] 60 MG capsule,delayed release(DR/EC) 60 mg PO DAILY RF: 0 nitroglycerin [Nitrostat] 0.4 MG tablet, sublingual 0.4 mg Sublingual PRN PRNRF: 0 atorvastatin [Lipitor] 40 MG tablet 40 mg PO QPM Qty: 30 RF: 0 Novolog Flexpen U-100 Insulin 300 UNITS/3 ML insulin pen Sub-Q 0800,1200,1700 Qty: 1 RF: 1 aspirin 81 mg Tablet,Chewable 1 tab PO DAILY RF: 0 lisinopril 2.5 mg Tablet 1 tab PO DAILY RF: 0 bupropion HCl 150 mg Tablet Extended Release 12 Hr 150 mg PO BID RF: 0 fexofenadine 180 mg Tablet 180 mg PO DAILY RF: 0 Novolog PenFill U-100 Insulin 100 unit/mL Cartridge 40 unit subcut DAILY RF: 0 Basaglar KwikPen U-100 Insulin 100 unit/mL (3 mL) Insulin Pen 40 unit subcut DAILY RF: 0 Dexilant 60 mg Capsule,Biphase Delayed Releas 1 tab PO DAILY RF: 0 magnesium oxide 250 mg tablet 400 mg PO BID RF: 0 Discharge Instructions Instructions: Kidney Infection (ED) Additional Instructions: Your CT shows some inflammation around her kidneys, similar to a prior CT. Given that you have a urinary tract infection as well as back pain and inflammation on CT, this may indicate that your urinary tract infection has spread to your kidneys. We will treat with an antibiotic but it is very important that you follow-up this week with your primary care provider. We also noted that your kidney function has slowly worsened over the course of the year. It is important that you follow-up for this as well. Return to the emergency department if you develop worsening pain, fever, chills, vomiting. Discharge Data Discharge Date/Time-TO BE ENTERED AT DEPARTURE: 02/15/19 16:40 Medical Decision Making Patient believes she passed a stone at home just prior to coming to ED she reports. She states that she has been having blood in her urine along with her flank pain and noted a solid material passed when she last voided prior to coming. I did not see a stone on her CT but there was some stranding around her kidneys similar to prior imaging study. Pyelo-is possible given this finding, patient certainly has a UTI. I have placed her on a fluoroquinolone given her progression of illness on Keflex. Her last urine culture was resistant to nitrofurantoin and she cannot take several other antibiotics including penicillins and sulfa antibiotics. Medical Records Medical records reviewed: Yes I reviewed the patient's medical records. JUDD Bansal was seen here 1 week ago with dysuria and frequency consistent with prior UTIs. I had seen her for this and prescribed her Keflex for 1 week which she has just completed.we were not able to perform a urinalysis or culture at that time because she was taking Pyridium. 1 week prior to that she had been diagnosed and treated for UTI with urine culture on 01/30+ for E. coli sensitive to everything except for nitrofurantoin. When I saw her last week I prescribed her Keflex. Her symptoms were near completely resolved as of 2 days ago however over the last 2 days symptoms have returned .so today she also complains of lower abdominal pain. She denies fever or chills, no lethargy. She does have some bilateral low back pain. General Date/Time Provider Initiated Documentation: 02/15/19 12:39 . Related Data Home Medications Medication Instructions Recorded Confirmed duloxetine [Cymbalta] 60 mg PO DAILY 12/19/15 02/15/19 zolpidem 10 mg PO HS 12/19/15 02/15/19 nitroglycerin [Nitrostat] 0.4 mg SUBLINGUAL PRN PRN 06/01/17 02/15/19 Novolog Flexpen U-100 Insulin 0 units SUB-Q 0800,1200,1700 #1 ea 06/04/17 02/15/19 atorvastatin [Lipitor] 40 mg PO QPM #30 tab 06/04/17 02/15/19 albuterol sulfate 2.5 mg INHALATION QID PRN ml 07/10/17 02/15/19 albuterol sulfate [ProAir HFA] 2 puff INHALATION Q4H PRN inhaler 07/10/17 02/15/19 aspirin 1 tab PO DAILY 04/26/18 02/15/19 lisinopril 1 tab PO DAILY 04/26/18 02/15/19 Basaglar KwikPen U-100 Insulin 40 unit SUBCUT DAILY 05/10/18 02/15/19 Dexilant 1 tab PO DAILY 05/10/18 02/15/19 Novolog PenFill U-100 Insulin 40 unit SUBCUT DAILY 05/10/18 02/15/19 bupropion HCl 150 mg PO BID 05/10/18 02/15/19 fexofenadine 180 mg PO DAILY 05/10/18 02/15/19 lorazepam 0.5 mg tablet 0.5 mg PO DAILY PRN tab 06/25/18 02/15/19 magnesium oxide 400 mg PO BID 10/28/18 02/15/19 varenicline 0.5 mg (11)-1 mg (42) 1 dose pk PO DIRECTED 01/29/19 02/15/19 tablets in a dose pack ciprofloxacin HCl 500 mg PO BID 7 Days #14 tab 02/15/19 Previous Rx's Medication Instructions Recorded Novolog Flexpen U-100 Insulin 0 units SUB-Q 0800,1200,1700 #1 ea 06/04/17 atorvastatin [Lipitor] 40 mg PO QPM #30 tab 06/04/17 ciprofloxacin HCl 500 mg PO BID 7 Days #14 tab 02/15/19 Allergies Allergy/AdvReac Type Severity Reaction Status Date / Time amoxicillin [From Augmentin] Allergy Unverified 02/15/19 12:51 clavulanic acid Allergy Unverified 02/15/19 12:51 [From Augmentin] Penicillins Allergy Unverified 02/15/19 12:51 Sulfa (Sulfonamide Allergy Unverified 02/15/19 12:51 Antibiotics) amitriptyline AdvReac made my Unverified 02/15/19 12:51 face go numb amoxicillin trihydrate AdvReac acute Unverified 02/15/19 12:51 [From Augmentin] kidney failure NSAIDS (Non-Steroidal AdvReac stage III Unverified 02/15/19 12:51 Anti-Inflamma kidney disease potassium clavulanate AdvReac acute Unverified 02/15/19 12:51 [From Augmentin] kidney failure General Stated Complaint: Urinary SADE: 3 Review of Systems Constitutional Denies chills, Denies fatigue, Denies fever(s) and Denies lethargy Eyes Denies loss of vision ENT Denies nasal congestion and Denies sore throat Cardiovascular Denies chest pain and Denies dyspnea Respiratory Denies cough and Denies dyspnea Gastrointestinal Denies nausea and Denies vomiting Musculoskeletal Denies muscle weakness and Denies numbness Integumentary/Breasts Denies rash Neurologic Denies focal weakness, Denies loss of vision and Denies numbness Endocrine Denies fatigue Hematologic/Lymphatic Denies easy bruising PFSH Social History Smoking/Tobacco Use Status: Current every day Tobacco Type: cigarettes Smoking cigarettes per day: 2 Quit status: considering quitting Alcohol Intake: never Drug use: Never Substance use type: does not use Do you feel safe at home: Yes Do you feel safe in your relationship?: Yes Exam Const General: cooperative, healthy appearing and no acute distress HENMT Head: normal to inspection Ears: hearing grossly normal bilaterally Eyes EOM: EOM intact bilaterally Neck Neck: normal visual inspection Resp Effort & Inspection: normal respiratory effort Auscultation: clear to auscultation bilaterally Cardio Rate: regular rate Rhythm: regular rhythm Heart Sounds: no murmurs GI Palpation: soft Other: Bilateral flank pain, tenderness to palpation of lower abdomen, no guarding or rebound. Abdomen soft and nondistended Skin General skin exam: no rashes or lesions noted Neuro General: alert, awake and oriented x3 Speech: speech normal Gait: normal gait Extrem General: normal to inspection Course Vital Signs Temperature 36.6 C 02/15/19 12:10 Pulse 109 H 02/15/19 12:10 Respiratory Rate 18 02/15/19 12:10 Blood Pressure 114/79 02/15/19 12:10 Pulse Oximetry 100 02/15/19 12:10 Temperature 36.6 C 02/15/19 12:10 Temperature Source Skin 02/15/19 12:10 Pulse 109 H 02/15/19 12:10 Respiratory Rate 18 02/15/19 12:10 Respiratory Effort 02/15/19 12:50 Blood Pressure 114/79 02/15/19 12:10 Blood Pressure Position Sitting 02/15/19 12:10 Pulse Oximetry 100 02/15/19 12:10 Oxygen Delivery Method Room Air 02/15/19 12:10 Oxygen Flow Rate 0 02/15/19 12:10 Pain Level 8 02/15/19 12:49
[2019-02-15 14:14] LABS: Abs Immature Grans 0.05 k/cumm (0.0-0.09); Absolute Basophil Count 0.05 k/cumm (0.0-0.2); Absolute Eosinophil Count 0.15 k/cumm (0.0-0.7); Absolute Lymphocyte Count 2.09 k/cumm (1.2-3.4); Absolute Monocyte Count 0.64 k/cumm (0.11-0.7); Basophils % 0.4; Eosinophils % 1.3; HCT 35.7 % (36.0-46.0); HGB 12.5 g/dL (12.0-15.5); Immature Grans % 0.4; Lymphocytes % 18.2; Mean Corpuscular Hemoglobin 31.3 pg (27.0-33.0); Mean Corpuscular Volume 89.5 fL (80-95); Mean Platelet Volume 9.8 fL (8.0-11.0); Monocytes % 5.6; Neutrophils % 74.1; Platelet Count 267 x1000/uL (130-400); RBC 3.99 m/cumm (4.00-5.20); RBC Distribution Width 12.4 % (11.7-14.6); White Blood Cell Count 11.47 k/cumm (4.4-10.8)
[2019-02-15] MEDS: Normal Saline 1,000 ML 1000 ML IV (14:14)
[2019-02-15 14:18] LABS: Lactate-non-spesis 0.7 mmol/l (0.6-1.4)
--- NOTE | 2019-02-15 14:38 | DI.CT_ITS ---
SYMPTOMS/DIAGNOSIS: RT FLANK PAIN, HEMATURIA, DYSURIA X [address]: Comparison is made with [id number]. The lung bases are clear. There is no evidence of hydronephrosis or urinary tract calculi. Again noted is minimal bilateral perinephritic stranding. There are no perinephritic collections. The urinary bladder is nearly empty and unremarkable. The uterus and ovaries are unremarkable. The patient is status post cholecystectomy. The liver, spleen, adrenals and pancreas are unremarkable. There is no bowel dilatation or inflammatory change. No free air or free fluid is seen. IMPRESSION: The urinary bladder is nearly empty and not well evaluated. No hydronephrosis or renal calculi are seen.
[2019-02-15 14:39] LABS: ALT 24 U/L (12-78); AST 13 U/L (15-37); Albumin 3.5 g/dL (3.4-5.0); Alkaline Phosphatase 123 U/L (46-116); Anion Gap 11.1 mmol/L (3-11); BUN 46 mg/dL (7-18); Bilirubin, Total 0.4 mg/dL (0.2-1.0); CO2 23.9 mmol/L (21.0-32.0); CREATININE 1.91 mg/dL (0.55-1.02); Calcium 9.2 mg/dL (8.5-10.1); Chloride 102 mmol/L (98-107); Estimated GFR 26.99 (mL/min/1.73m2); Glucose 259 mg/dL (70-100); Potassium 4.8 mmol/L (3.5-5.1); Sodium 137 mmol/L (136-145)
--- NOTE | 2019-02-15 15:37 | NUR.NOTE ---
pt ambulatory to bathroom steady back to room Nursing Note:
[2019-02-15 16:26] VITALS: BP 103/59; TEMP 36.3
== END 2019-02-15 16:40 | disposition home or self-care (01) ==
PROVIDERS: Emergency Provider Physician Assistant Medical; PCP Nurse Practitioner Family
DX: N10 Acute pyelonephritis (principal); I10 Essential (primary) hypertension; J44.9 Chronic obstructive pulmonary disease, unspecified; I25.10 Atherosclerotic heart disease of native coronary artery without angina pectoris
CPT/HCPCS: 36415; 80053; 96360; 99284; 74176; 81003; 81015; 83605; 85025; 87086

== ENCOUNTER 2019-02-24 15:08 | Emergency (ER) | payer MEDICARE, MEDICAID, SELFPAY ==
[2019-02-24 15:14] VITALS: BP 130/84; PULSE 97; RESP 16; TEMP 36.6; O2SAT 98
--- NOTE | 2019-02-24 16:01 | ED.GENADUL_ITS ---
Discharge Plan Disposition Patient Disposition: HOME Condition: Improving Discharge Details Chief Complaint: GenMedical Clinical Impression: Hypomagnesemia Primary Care Provider: Maylin Garcia ED Provider: Murtaza Lamas Home Meds and New Rx's Prescriptions: Continued varenicline 0.5 mg (11)- 1 mg (42) tablets,dose pack 1 dose pk PO DIRECTED RF: 0 lorazepam [Ativan] 0.5 mg tablet 0.5 mg PO DAILY PRNRF: 0 albuterol sulfate 1.25 MG/3 ML solution for nebulization 2.5 mg Inhalation QID PRNRF: 0 albuterol sulfate [ProAir HFA] 8.5 GM HFA aerosol inhaler 2 puff Inhalation Q4H PRN RF: 0 zolpidem 10 MG tablet 10 mg PO HS RF: 0 duloxetine [Cymbalta] 60 MG capsule,delayed release(DR/EC) 60 mg PO DAILY RF: 0 nitroglycerin [Nitrostat] 0.4 MG tablet, sublingual 0.4 mg Sublingual PRN PRNRF: 0 atorvastatin [Lipitor] 40 MG tablet 40 mg PO QPM Qty: 30 RF: 0 Novolog Flexpen U-100 Insulin 300 UNITS/3 ML insulin pen Sub-Q 0800,1200,1700 Qty: 1 RF: 1 aspirin 81 mg Tablet,Chewable 1 tab PO DAILY RF: 0 lisinopril 2.5 mg Tablet 1 tab PO DAILY RF: 0 bupropion HCl 150 mg Tablet Extended Release 12 Hr 150 mg PO BID RF: 0 fexofenadine 180 mg Tablet 180 mg PO DAILY RF: 0 Novolog PenFill U-100 Insulin 100 unit/mL Cartridge 40 unit subcut DAILY RF: 0 Basaglar KwikPen U-100 Insulin 100 unit/mL (3 mL) Insulin Pen 40 unit subcut DAILY RF: 0 Dexilant 60 mg Capsule,Biphase Delayed Releas 1 tab PO DAILY RF: 0 magnesium oxide 250 mg tablet 400 mg PO BID RF: 0 Flovent HFA 44 mcg/actuation Hfa Aerosol Inhaler 2 inh RF: 0 Discharge Instructions Additional Instructions: Home to rest today. Please make a follow-up appointment with Idalmis Garcia for recheck in the next 7 to 10 days time. Your urinalysis did not show evidence of persistent infection. Your magnesium level was low and he received 2 g via IV You may increase your dietary magnesium through foods such as leafy green vegetables, seeds such as flax, pumpkin, Ang. Bananas, avocados, as well as legumes and tree nuts. Medical Decision Making 58-year-old female recently diagnosed with urinary tract infection for which she finished ciprofloxacin yesterday. States she now has generalized weakness and malaise. Review of systems does not reveal any other significant specific findings. She arrives with a blood pressure 130/84, afebrile, well-appearing. Mucous members are slightly dry and she certainly may be dehydrated, will also consider recurrent urinary tract infection, likely abnormality within her differential diagnosis. IV placed, screening labs and urinalysis obtained. Patient does not have evidence of urinary tract infection, she does have notable hypomagnesemia with a magnesium of 1.2. Renal function is near her baseline, potassium is 4.8 and the remainder of chemistries are unremarkable. Patient given 2 g of magnesium and fluids IV with improvement. [place] better, ambulatory, taking liquids and solids by mouth. She is stable for discharge to home. I educated her on increasing dietary magnesium. She is stable for di scharge to home. Lab Data Lab results reviewed: Yes I reviewed the patient's lab results. Laboratory Results - last 24 hr 02/24/19 02/24/19 02/24/19 16:15 16:15 16:15 WBC 7.20 RBC 3.74 L Hgb 11.7 L Hct 32.9 L MCV 88.0 MCH 31.3 MCHC 35.6 RDW 12.3 Plt Count 249 MPV 9.9 Immature Gran % 0.4 Neutrophils % 56.6 Lymphocytes % 34.7 Monocytes % 5.7 Eosinophils % 2.2 Basophils % 0.4 Absolute Neutrophils 4.07 Absolute Lymphocytes 2.50 Absolute Monocytes 0.41 Absolute Eosinophils 0.16 Absolute Basophils 0.03 Sodium 136 Potassium 4.8 Chloride 103 Carbon Dioxide 23.3 Anion Gap 9.7 BUN 33 H Creatinine 1.72 H Estimated GFR/1.73 m2 30.46 Glucose 350 H Calcium 8.7 Magnesium 1.2 L Total Bilirubin 0.3 AST 10 L ALT 16 Alkaline Phosphatase 128 H Total Protein 7.2 Albumin 3.5 Urine Color Yellow Urine Clarity Clear Urine pH 5.0 Ur Specific [place] 1.020 Urine Protein 30 H Urine Ketones Negative Urine Blood Negative Urine Nitrite Negative Urine Bilirubin Negative Urine Urobilinogen 0.2 Ur Leukocyte Esterase Negative Urine RBC 0-2 Urine WBC 0-2 Ur Epithelial Cells Many Urine Crystals Negative Urine Bacteria Few Urine Casts Negative Urine Mucus Negative Urine Other Few renal Ur Culture Indicated? No/sq. contamination Urine Glucose 500 H HPI General Mode of arrival: ambulatory . Date/Time Provider Initiated Documentation: 02/24/19 15:23 . Limitations to Documentation: no limitations . Information obtained by: patient . History of Present Illness 58 year old F presents to the emergency department with the chief complaint of 'I feel lousy' and question if I have recurrent urinary tract infection, described as moderate, Quality is described as constant, Patient reports no radiation. Patient started experiencing this hour(s) and it has been constant. No relieving factors improve symptom(s), No exacerbating factors reported . Patient notes weakness; denies fever/chills and nausea/vomiting. Patient did receive the following treatments prior to arrival, none Related Data Home Medications Medication Instructions Recorded Confirmed duloxetine [Cymbalta] 60 mg PO DAILY 12/19/15 02/24/19 zolpidem 10 mg PO HS 12/19/15 02/24/19 nitroglycerin [Nitrostat] 0.4 mg SUBLINGUAL PRN PRN 06/01/17 02/24/19 Novolog Flexpen U-100 Insulin 0 units SUB-Q 0800,1200,1700 #1 ea 06/04/17 02/24/19 atorvastatin [Lipitor] 40 mg PO QPM #30 tab 06/04/17 02/24/19 albuterol sulfate 2.5 mg INHALATION QID PRN ml 07/10/17 02/24/19 albuterol sulfate [ProAir HFA] 2 puff INHALATION Q4H PRN inhaler 07/10/17 02/24/19 aspirin 1 tab PO DAILY 04/26/18 02/24/19 lisinopril 1 tab PO DAILY 04/26/18 02/24/19 Basaglar KwikPen U-100 Insulin 40 unit SUBCUT DAILY 05/10/18 02/24/19 Dexilant 1 tab PO DAILY 05/10/18 02/24/19 Novolog PenFill U-100 Insulin 40 unit SUBCUT DAILY 05/10/18 02/24/19 bupropion HCl 150 mg PO BID 05/10/18 02/24/19 fexofenadine 180 mg PO DAILY 05/10/18 02/24/19 lorazepam 0.5 mg tablet 0.5 mg PO DAILY PRN tab 06/25/18 02/24/19 magnesium oxide 400 mg PO BID 10/28/18 02/24/19 varenicline 0.5 mg (11)-1 mg (42) 1 dose pk PO DIRECTED 01/29/19 02/24/19 tablets in a dose pack Flovent HFA 2 inh 02/24/19 Previous Rx's Medication Instructions Recorded Novolog Flexpen U-100 Insulin 0 units SUB-Q 0800,1200,1700 #1 ea 06/04/17 atorvastatin [Lipitor] 40 mg PO QPM #30 tab 06/04/17 Allergies Allergy/AdvReac Type Severity Reaction Status Date / Time amoxicillin [From Augmentin] Allergy Unverified 02/24/19 15:18 clavulanic acid Allergy Unverified 02/24/19 15:18 [From Augmentin] Penicillins Allergy Unverified 02/24/19 15:18 Sulfa (Sulfonamide Allergy Unverified 02/24/19 15:18 Antibiotics) amitriptyline AdvReac made my Unverified 02/24/19 15:18 face go numb amoxicillin trihydrate AdvReac acute Unverified 02/24/19 15:18 [From Augmentin] kidney failure NSAIDS (Non-Steroidal AdvReac stage III Unverified 02/24/19 15:18 Anti-Inflamma kidney disease potassium clavulanate AdvReac acute Unverified 02/24/19 15:18 [From Augmentin] kidney failure General Stated Complaint: GenMedical SADE: 3 Review of Systems Review of Systems Denies fall. No chest pain. No cough. she finished ciprofloxacin. 6 systems reviewed and otherwise negative [facility] Medical History Coronary artery disease (Chronic) Diabetes (Chronic) Hypertension (Chronic) Renal insufficiency (Chronic) Depression Diabetes Insomnia Surgical History Appendectomy section Cholecystectomy Coronary Stent Family History Grandmother No problems noted. Social History Smoking/Tobacco Use Status: Current every day Tobacco Type: cigarettes Quit status: considering quitting Alcohol Intake: never Drug use: Never Substance use type: does not use Do you feel safe at home: Yes Do you feel safe in your relationship?: Yes Exam Narrative Exam Narrative: GEN: awake, alert, oriented 3. Pleasant, well groomed, interactive. HEAD: Normocephalic, atraumatic ENT: Mucous membranes dry, oropharynx unremarkable, External ear exam unremarkable EYES: PERRL, EOMI NECK: Full ROM, no STACY, no menigismus CHEST/RESP: Nontender, clear to auscultation bilateral, no wheeze/rhonchi/rales CARDIOVASCULAR: RRR, no murmur, rub yan. 2+ Rad pulse bilateral ABDOMEN: Soft, nontender, no mass. +Bowel sounds EXT: Full ROM, no edema, no rash Neuro: Grossly normal neurologic exam, conversant, interactive. Psych: Speech fluent, thoughts congruent, affect flat Course Vital Signs Temperature 36.6 C 02/24/19 15:14 Pulse 97 H 02/24/19 15:14 Respiratory Rate 16 02/24/19 15:14 Blood Pressure 130/84 02/24/19 15:14 Pulse Oximetry 98 02/24/19 15:14 Temperature 36.6 C 02/24/19 15:14 Temperature Source Skin 02/24/19 15:14 Pulse 97 H 02/24/19 15:14 Respiratory Rate 16 02/24/19 15:14 Respiratory Effort Non-Labored 02/24/19 15:14 Blood Pressure 130/84 02/24/19 15:14 Blood Pressure Position Sitting 02/24/19 15:14 Pulse Oximetry 98 02/24/19 15:14 Oxygen Delivery Method Room Air 02/24/19 15:14 Oxygen Flow Rate 0 02/24/19 15:14 Pain Level 7 02/24/19 15:14
[2019-02-24] MEDS: Normal Saline 1,000 ML 1000 ML IV (16:15)
[2019-02-24 16:28] LABS: Abs Immature Grans 0.03 k/cumm (0.0-0.09); Absolute Basophil Count 0.03 k/cumm (0.0-0.2); Absolute Eosinophil Count 0.16 k/cumm (0.0-0.7); Absolute Monocyte Count 0.41 k/cumm (0.11-0.7); Absolute Neutrophil Count 4.07 k/cumm (1.2-6.7); Basophils % 0.4; Bilirubin Negative (Negative); Blood Negative (Negative); Clarity Clear (Clear); Eosinophils % 2.2; Glucose 500 mg/dL (Negative); HCT 32.9 % (36.0-46.0); HGB 11.7 g/dL (12.0-15.5); Immature Grans % 0.4; Ketones Negative (Negative); Leukocyte Esterase Negative (Negative); Lymphocytes % 34.7; Mean Corp. HGB Concentration 35.6 g/dL (32.0-36.0); Mean Corpuscular Hemoglobin 31.3 pg (27.0-33.0); Mean Platelet Volume 9.9 fL (8.0-11.0); Monocytes % 5.7; Neutrophils % 56.6; Nitrite Negative (Negative); Platelet Count 249 x1000/uL (130-400); RBC 3.74 m/cumm (4.00-5.20); RBC Distribution Width 12.3 % (11.7-14.6); Urobilinogen 0.2 EU/dL (Up TO 0.2)
[2019-02-24 16:41] LABS: Bacteria Few HPF (Negative); C & S Indicated? No/Sq. Contamination; Casts Negative LPF (Negative); Crystals Negative HPF (Negative); Epithelial Cells Many HPF (Negative); Mucus Negative (Negative); Other Cells Few Renal (Negative); RBC 0-2 (0-2); WBC 0-2 HPF (0-5)
[2019-02-24 17:00] LABS: ALT 16 U/L (12-78); AST 10 U/L (15-37); Albumin 3.5 g/dL (3.4-5.0); Alkaline Phosphatase 128 U/L (46-116); Anion Gap 9.7 mmol/L (3-11); BUN 33 mg/dL (7-18); Bilirubin, Total 0.3 mg/dL (0.2-1.0); CO2 23.3 mmol/L (21.0-32.0); CREATININE 1.72 mg/dL (0.55-1.02); Calcium 8.7 mg/dL (8.5-10.1); Chloride 103 mmol/L (98-107); Estimated GFR 30.46 (mL/min/1.73m2); Glucose 350 mg/dL (70-100); Magnesium 1.2 mg/dL (1.8-2.4); Potassium 4.8 mmol/L (3.5-5.1); Sodium 136 mmol/L (136-145); Total Protein 7.2 g/dL (6.4-8.2)
[2019-02-24] MEDS: MAGNESIUM SULFATE 2 GM/50 ML BAG IVPB (17:21)
[2019-02-24 18:56] VITALS: BP 130/75; PULSE 79; RESP 15; O2SAT 100
[2019-02-24 19:40] VITALS: BP 129/61; PULSE 68; RESP 16; O2SAT 98
== END 2019-02-24 19:44 | disposition home or self-care (01) ==
PROVIDERS: Emergency Provider Emergency Medicine; PCP Nurse Practitioner Family
DX: R53.1 Weakness (principal); E83.42 Hypomagnesemia; R53.81 Other malaise; E11.9 Type 2 diabetes mellitus without complications; Z79.4 Long term (current) use of insulin; I12.9 Hypertensive chronic kidney disease with stage 1 through stage 4 chronic kidney disease, or unspecified chronic kidney disease; N18.9 Chronic kidney disease, unspecified
CPT/HCPCS: 36415; 80053; 96361; 96365; 96366; 99284; 81003; 81015; 83735; 85025

== ENCOUNTER 2019-03-13 16:46 | Emergency (ER) | payer MEDICARE, MEDICAID, SELFPAY ==
[2019-03-13 17:09] VITALS: BP 139/82; PULSE 96; RESP 16; TEMP 36.4; O2SAT 97
--- NOTE | 2019-03-13 17:56 | ED.GENADUL_ITS ---
Discharge Plan Disposition Patient Disposition: HOME Condition: Stable Discharge Details Chief Complaint: Nk/Back Pain Clinical Impression: Low back pain Primary Care Provider: Maylin Garcia ED Provider: Rigoberto Figueroa Home Meds and New Rx's Prescriptions: New Aspercreme (lidocaine) 4 % adhesive patch,medicated 1 patch TP DAILY PRN (Reason: pain) Qty: 5 RF: 0 cyclobenzaprine 10 mg tablet 10 mg PO HS PRN (Reason: muscle spasm) Qty: 10 RF: 0 No Action varenicline 0.5 mg (11)- 1 mg (42) tablets,dose pack 1 dose pk PO DIRECTED RF: 0 lorazepam [Ativan] 0.5 mg tablet 0.5 mg PO DAILY PRNRF: 0 albuterol sulfate 1.25 MG/3 ML solution for nebulization 2.5 mg Inhalation QID PRNRF: 0 albuterol sulfate [ProAir HFA] 8.5 GM HFA aerosol inhaler 2 puff Inhalation Q4H PRN RF: 0 zolpidem 10 MG tablet 10 mg PO HS RF: 0 duloxetine [Cymbalta] 60 MG capsule,delayed release(DR/EC) 60 mg PO DAILY RF: 0 nitroglycerin [Nitrostat] 0.4 MG tablet, sublingual 0.4 mg Sublingual PRN PRNRF: 0 atorvastatin [Lipitor] 40 MG tablet 40 mg PO QPM Qty: 30 RF: 0 Novolog Flexpen U-100 Insulin 300 UNITS/3 ML insulin pen 0 units Sub-Q 0800,1200,1700 Qty: 1 RF: 1 aspirin 81 mg Tablet,Chewable 1 tab PO DAILY RF: 0 lisinopril 2.5 mg Tablet 1 tab PO DAILY RF: 0 bupropion HCl 150 mg Tablet Extended Release 12 Hr 150 mg PO BID RF: 0 fexofenadine 180 mg Tablet 180 mg PO DAILY RF: 0 Novolog PenFill U-100 Insulin 100 unit/mL Cartridge 40 unit subcut DAILY RF: 0 Basaglar KwikPen U-100 Insulin 100 unit/mL (3 mL) Insulin Pen 40 unit subcut DAILY RF: 0 Dexilant 60 mg Capsule,Biphase Delayed Releas 1 tab PO DAILY RF: 0 magnesium oxide 250 mg tablet 400 mg PO BID RF: 0 Flovent HFA 44 mcg/actuation Hfa Aerosol Inhaler 2 inh inhalation BID RF: 0 Discharge Instructions Instructions: Low Back Strain (ED) Additional Instructions: Please follow-up with your primary care doctor this week. Please take the medications prescribed as directed. Please return to the emergency department for increasing pain weakness or other concern. Medical Decision Making 58-year-old female with musculoskeletal back pain no red flags for cord compression no abdominal pain no upper back pain to suggest acute coronary syndrome no weakness no loss of consciousness shortness of breath. No change in blood sugar. Plan for lidocaine patches Flexeril Tylenol primary care follow- up strict return to emergency department for increasing pain new weakness bowel or bladder incontinence or other new symptom or concern. HPI 58-year-old female past medical history of coronary artery disease depression diabetes hypertension chronic kidney disease presents with 4 days of lower lumbar L4-L5 back pain primarily lateral bilaterally radiating to patient's buttock.no weakness no bowel or bladder incontinence no change in sensation. Pain temporally related to moving heavy furniture all week while moving residences. No weakness shortness of breath chest pain loss of consciousness fever chills or other complaints. Patient taking Tylenol with minimal effect. Patient mentioned to nursing that her magnesium might be low patient states her magnesium is always low not complaining of any muscle weakness change in energy or coordination no palpitations. General Date/Time Provider Initiated Documentation: 03/13/19 16:55 . Related Data Home Medications Medication Instructions Recorded Confirmed duloxetine [Cymbalta] 60 mg PO DAILY 12/19/15 03/13/19 zolpidem 10 mg PO HS 12/19/15 03/13/19 nitroglycerin [Nitrostat] 0.4 mg SUBLINGUAL PRN PRN 06/01/17 03/13/19 Novolog Flexpen U-100 Insulin 0 units SUB-Q 0800,1200,1700 #1 ea 06/04/17 03/13/19 atorvastatin [Lipitor] 40 mg PO QPM #30 tab 06/04/17 03/13/19 albuterol sulfate 2.5 mg INHALATION QID PRN ml 07/10/17 03/13/19 albuterol sulfate [ProAir HFA] 2 puff INHALATION Q4H PRN inhaler 07/10/17 03/13/19 aspirin 1 tab PO DAILY 04/26/18 03/13/19 lisinopril 1 tab PO DAILY 04/26/18 03/13/19 Basaglar KwikPen U-100 Insulin 40 unit SUBCUT DAILY 05/10/18 03/13/19 Dexilant 1 tab PO DAILY 05/10/18 03/13/19 Novolog PenFill U-100 Insulin 40 unit SUBCUT DAILY 05/10/18 03/13/19 bupropion HCl 150 mg PO BID 05/10/18 03/13/19 fexofenadine 180 mg PO DAILY 05/10/18 03/13/19 lorazepam 0.5 mg tablet 0.5 mg PO DAILY PRN tab 06/25/18 03/13/19 magnesium oxide 400 mg PO BID 10/28/18 03/13/19 varenicline 0.5 mg (11)-1 mg (42) 1 dose pk PO DIRECTED 01/29/19 03/13/19 tablets in a dose pack Flovent HFA 2 inh INHALATION BID 02/24/19 03/13/19 cyclobenzaprine 10 mg PO HS PRN #10 tab 03/13/19 lidocaine [Aspercreme (lidocaine)] 1 patch TP DAILY PRN #5 each 03/13/19 Previous Rx's Medication Instructions Recorded Novolog Flexpen U-100 Insulin 0 units SUB-Q 0800,1200,1700 #1 ea 06/04/17 atorvastatin [Lipitor] 40 mg PO QPM #30 tab 06/04/17 cyclobenzaprine 10 mg PO HS PRN #10 tab 03/13/19 lidocaine [Aspercreme (lidocaine)] 1 patch TP DAILY PRN #5 each 03/13/19 Allergies Allergy/AdvReac Type Severity Reaction Status Date / Time amoxicillin [From Augmentin] Allergy Unverified 03/13/19 17:14 clavulanic acid Allergy Unverified 03/13/19 17:14 [From Augmentin] Penicillins Allergy Unverified 03/13/19 17:14 Sulfa (Sulfonamide Allergy Unverified 03/13/19 17:14 Antibiotics) amitriptyline AdvReac made my Unverified 03/13/19 17:14 face go numb amoxicillin trihydrate AdvReac acute Unverified 03/13/19 17:14 [From Augmentin] kidney failure NSAIDS (Non-Steroidal AdvReac stage III Unverified 03/13/19 17:14 Anti-Inflamma kidney disease potassium clavulanate AdvReac acute Unverified 03/13/19 17:14 [From Augmentin] kidney failure General Stated Complaint: Nk/Back Pain SADE: 4 Review of Systems Review of Systems All systems reviewed & are unremarkable except as noted in HPI and below PFSH Medical History (Updated 03/13/19 @ 17:14 by Karma Hanson) Coronary artery disease (Chronic) Depression Diabetes Diabetes (Chronic) Hypertension (Chronic) Insomnia Renal insufficiency (Chronic) Urinary tract infection (Acute) Social History Smoking/Tobacco Use Status: Current every day Tobacco Type: cigarettes Quit status: considering quitting Alcohol Intake: never Drug use: Never Substance use type: does not use Details: trying to stop smoking Do you feel safe at home: Yes Do you feel safe in your relationship?: Yes Exam Narrative Exam Narrative: Pulse oximetry reviewed by me and is normal: Constitutional: in no acute distress. well appearing. oriented to person, place, and time. Eyes: conjunctivae are normal. Pupils are equal, round, and reactive to light. No scleral icterus. extraocular muscles are intact Ears/Nose/Mouth/Throat: muscousal membranes are moist. Musculoskeletal: neck is supple. normal range of motion in all extremities. Cardiovascular: Normal rate and rhythm. No lower extremity edema Respiratory: effort is normal. no stridor or respiratory distress. GastrointestinaI: abdomen soft, +BS, nontender, -rebound, -guarding. Back: Mild tenderness left and right lateral lower back L4-5 area no step-offs no deformity no rash no vesicles normal lower extremity strength normal plantar flexion and extension normal distal sensation Neurological: alert and oriented to person, place, and time. normal strength, no tremor. Skin: Skin is warm and dry. not diaphoretic. Distal perfusion intact, warm extremities, cap refill < 2 seconds. Hem/Lymph/Imm: No cervical LAD, no goiter, no conjunctival pallor Psych: normal mood and affect. behavior is normal Triage and nurse notes reviewed. Course Vital Signs Temperature 36.4 C L 03/13/19 17:09 Pulse 96 H 03/13/19 17:09 Respiratory Rate 16 03/13/19 17:09 Blood Pressure 139/82 03/13/19 17:09 Pulse Oximetry 97 03/13/19 17:09 Temperature 36.4 C L 03/13/19 17:09 Temperature Source Skin 03/13/19 17:09 Pulse 96 H 03/13/19 17:09 Respiratory Rate 16 03/13/19 17:09 Respiratory Effort Non-Labored 03/13/19 17:12 Blood Pressure 139/82 03/13/19 17:09 Pulse Oximetry 97 03/13/19 17:09 Pain Level 9 03/13/19 17:09
[2019-03-13] MEDS: Cyclobenzaprine 10 MG TAB PO (18:04)
[2019-03-13] MEDS: Lidocaine 5% Patch 2 PATCH TP (18:05)
== END 2019-03-13 18:22 | disposition home or self-care (01) ==
PROVIDERS: Emergency Provider Emergency Medicine; PCP Nurse Practitioner Family
DX: M54.5 Low back pain (principal); I12.9 Hypertensive chronic kidney disease with stage 1 through stage 4 chronic kidney disease, or unspecified chronic kidney disease; E11.22 Type 2 diabetes mellitus with diabetic chronic kidney disease; N18.9 Chronic kidney disease, unspecified
CPT/HCPCS: 99283

== ENCOUNTER 2019-05-17 00:36 | Outpatient (CLI) | payer MEDICARE, MEDICAID, SELFPAY ==
--- NOTE | 2019-05-17 14:17 | DI.RAD_ITS ---
EXAM: XR LUMBAR SPINE COMPLETE INDICATION: ACUTE LOW BACK PAIN M54.5. COMPARISON: No exams were available for comparison TECHNIQUE: 2D digital imaging was performed. FINDINGS: The vertebral bodies are intact. Spaces are intact. Pedicles, spinous and transverse processes appea r unremarkable. There is minimal facet joint DJD and no evidence of spondylolysis or spondylolisthes is. The sacrum and sacroiliac joints appear unremarkable. IMPRESSION: Normal lumbosacral spine
== END 2019-05-17 00:56 ==
PROVIDERS: PCP Nurse Practitioner Family; Visit Provider Nurse Practitioner Family
DX: M54.5 Low back pain (principal); M47.816 Spondylosis without myelopathy or radiculopathy, lumbar region
CPT/HCPCS: 72110

== ENCOUNTER 2019-06-13 08:59 | Emergency (ER) | payer MEDICARE, MEDICAID, SELFPAY ==
[2019-06-13 09:03] VITALS: BP 152/83; PULSE 99; RESP 18; TEMP 36.7; O2SAT 100
--- NOTE | 2019-06-13 09:20 | ED.GENADUL_ITS ---
Discharge Plan Disposition Patient Disposition: HOME Condition: Stable Discharge Details Chief Complaint: Sorethroat Clinical Impression: Oral candidiasis, Mouth ulcers Primary Care Provider: Maylin Garcia ED Provider: Adilene Tinsley Home Meds and New Rx's Prescriptions: New nystatin 100,000 unit/mL suspension 5 ml PO QID 10 Days Qty: 200 RF: 0 Lidocaine Viscous 2 % solution 15 ml MM TID PRN (Reason: pain) Qty: 100 RF: 0 Continued lorazepam [Ativan] 0.5 mg tablet 0.5 mg PO DAILY PRNRF: 0 albuterol sulfate 1.25 MG/3 ML solution for nebulization 2.5 mg Inhalation QID PRNRF: 0 albuterol sulfate [ProAir HFA] 8.5 GM HFA aerosol inhaler 2 puff Inhalation Q4H PRN RF: 0 zolpidem 10 MG tablet 10 mg PO HS RF: 0 duloxetine [Cymbalta] 60 MG capsule,delayed release(DR/EC) 60 mg PO DAILY RF: 0 Aspercreme (lidocaine) 4 % adhesive patch,medicated 1 patch TP DAILY PRN (Reason: pain) Qty: 5 RF: 0 cyclobenzaprine 10 mg tablet 10 mg PO HS PRN (Reason: muscle spasm) Qty: 10 RF: 0 nitroglycerin [Nitrostat] 0.4 MG tablet, sublingual 0.4 mg Sublingual PRN PRNRF: 0 atorvastatin [Lipitor] 40 MG tablet 40 mg PO QPM Qty: 30 RF: 0 Novolog Flexpen U-100 Insulin 300 UNITS/3 ML insulin pen 0 units Sub-Q 0800,1200,1700 Qty: 1 RF: 1 aspirin 81 mg Tablet,Chewable 1 tab PO DAILY RF: 0 lisinopril 2.5 mg Tablet 1 tab PO DAILY RF: 0 bupropion HCl 150 mg Tablet Extended Release 12 Hr 150 mg PO BID RF: 0 fexofenadine 180 mg Tablet 180 mg PO DAILY RF: 0 Novolog PenFill U-100 Insulin 100 unit/mL Cartridge 40 unit subcut DAILY RF: 0 Basaglar KwikPen U-100 Insulin 100 unit/mL (3 mL) Insulin Pen 40 unit subcut DAILY RF: 0 Dexilant 60 mg Capsule,Biphase Delayed Releas 1 tab PO DAILY RF: 0 magnesium oxide 250 mg tablet 400 mg PO BID RF: 0 Flovent HFA 44 mcg/actuation Hfa Aerosol Inhaler 2 inh inhalation BID RF: 0 Discharge Instructions Instructions: Oral Candidiasis (ED), Gingivostomatitis (ED) Additional Instructions: Avoid hot beverages and foods and foods that require excessive chewing. Mainly follow a diet of cool soft foods over the next 2 days. Use the nystatin wash as directed. Only use the viscous lidocaine in cases of severe pain as directed. Follow-up with your primary care doctor this week for reevaluation. Return to the emergency department if you develop any worsening or new concerning symptoms. Discharge Data Discharge Physician: Adilene Tinsley Medical Decision Making 59-year-old female with history of anxiety, COPD, diabetes, obesity presents with painful mouth and tongue sores for the past few days. She was exposed to strep with her grandchildren recently but she denies any sore throat or fever. Glucose has been as high as 500s. She appears nontoxic, airway intact, speaking in full sentences. She has scattered erythematous tender white patches to tongue and bilateral buccal mucosa with a few very tender ulcers noted to gingiva. Patient has no teeth. She denies wearing dentures. She states she is no longer taking her Flovent. She denies any recent antibiotics. She does admit to a recent cold She has no complaint of sore throat and posterior pharynx appears within normal limits, do not see an indication for her strep testing or treatment. Differential diagnosis includes viral mouth lesions, no rash noted to palms and no report of rash to soles of feet; also oral candidiasis. She is advised to avoid hot beverages and food. Will treat with nystatin oral solution and give viscous lidocaine in cases of severe pain. She is advised to get better control of her glucose, follow-up with her primary care doctor this week and to return to the ER with any concerns. HPI General Mode of arrival: ambulatory . Date/Time Provider Initiated Documentation: 06/13/19 09:02 . Limitations to Documentation: no limitations . Information obtained by: patient . HPI Narrative: Patient is a 59-year-old female with a history of COPD, diabetes, obesity who presents with painful mouth and tongue ulcers for the past few days. She states her grandchildren recently had strep but she denies any sore throat. She denies any fever. She does admit to occasional pain with swallowing but otherwise has been able to eat and drink. She states her sugars have been in a broad range from 50s to 500s. Related Data Home Medications Medication Instructions Recorded Confirmed duloxetine [Cymbalta] 60 mg PO DAILY 12/19/15 06/13/19 zolpidem 10 mg PO HS 12/19/15 06/13/19 nitroglycerin [Nitrostat] 0.4 mg SUBLINGUAL PRN PRN 06/01/17 06/13/19 Novolog Flexpen U-100 Insulin 0 units SUB-Q 0800,1200,1700 #1 ea 06/04/17 06/13/19 atorvastatin [Lipitor] 40 mg PO QPM #30 tab 06/04/17 06/13/19 albuterol sulfate 2.5 mg INHALATION QID PRN ml 07/10/17 06/13/19 albuterol sulfate [ProAir HFA] 2 puff INHALATION Q4H PRN inhaler 07/10/17 06/13/19 aspirin 1 tab PO DAILY 04/26/18 06/13/19 lisinopril 1 tab PO DAILY 04/26/18 06/13/19 Basaglar KwikPen U-100 Insulin 40 unit SUBCUT DAILY 05/10/18 06/13/19 Dexilant 1 tab PO DAILY 05/10/18 06/13/19 Novolog PenFill U-100 Insulin 40 unit SUBCUT DAILY 05/10/18 06/13/19 bupropion HCl 150 mg PO BID 05/10/18 06/13/19 fexofenadine 180 mg PO DAILY 05/10/18 06/13/19 lorazepam 0.5 mg tablet 0.5 mg PO DAILY PRN tab 06/25/18 06/13/19 magnesium oxide 400 mg PO BID 10/28/18 06/13/19 Flovent HFA 2 inh INHALATION BID 02/24/19 06/13/19 Aspercreme (lidocaine) 1 patch TP DAILY PRN #5 each 03/13/19 06/13/19 cyclobenzaprine 10 mg PO HS PRN #10 tab 03/13/19 06/13/19 lidocaine HCl [Lidocaine Viscous] 15 ml MM TID PRN #100 ml 06/13/19 nystatin 5 ml PO QID 10 Days #200 ml 06/13/19 Previous Rx's Medication Instructions Recorded Novolog Flexpen U-100 Insulin 0 units SUB-Q 0800,1200,1700 #1 ea 06/04/17 atorvastatin [Lipitor] 40 mg PO QPM #30 tab 06/04/17 Aspercreme (lidocaine) 1 patch TP DAILY PRN #5 each 03/13/19 cyclobenzaprine 10 mg PO HS PRN #10 tab 03/13/19 lidocaine HCl [Lidocaine Viscous] 15 ml MM TID PRN #100 ml 06/13/19 nystatin 5 ml PO QID 10 Days #200 ml 06/13/19 Allergies Allergy/AdvReac Type Severity Reaction Status Date / Time amoxicillin [From Augmentin] Allergy Unverified 06/13/19 09:07 clavulanic acid Allergy Unverified 06/13/19 09:07 [From Augmentin] Penicillins Allergy Unverified 06/13/19 09:07 Sulfa (Sulfonamide Allergy Unverified 06/13/19 09:07 Antibiotics) amitriptyline AdvReac made my Unverified 06/13/19 09:07 face go numb amoxicillin trihydrate AdvReac acute Unverified 06/13/19 09:07 [From Augmentin] kidney failure NSAIDS (Non-Steroidal AdvReac stage III Unverified 06/13/19 09:07 Anti-Inflamma kidney disease potassium clavulanate AdvReac acute Unverified 06/13/19 09:07 [From Augmentin] kidney failure General Stated Complaint: Sorethroat SADE: 4 Review of Systems Review of Systems ROS Unobtainable: All systems reviewed & are unremarkable except as noted in HPI and below Constitutional Constitutional: Reports as per HPI, Denies chills and Denies fever(s) Eyes Eyes: Denies blurry vision ENT Ears, Nose, Mouth, and Throat: Denies dizziness, Reports mouth lesions, Reports mouth pain, Denies sore throat and Denies throat swelling Cardiovascular Cardiovascular: Denies chest pain and Denies dyspnea Respiratory Respiratory: Denies cough and Denies dyspnea Gastrointestinal Gastrointestinal: Denies abdominal pain, Denies diarrhea and Denies vomiting Genitourinary Genitourinary: Denies hematuria and Denies dysuria Musculoskeletal Musculoskeletal: Denies back pain and Denies numbness Integumentary/Breasts Skin/Breast: Denies lesions and Denies rash Neurologic Neurologic: Denies dizziness, Denies focal weakness and Denies numbness Allergic/Immunologic Allergic/Immunologic: Denies throat swelling [facility] Medical History Coronary artery disease (Chronic) Depression Diabetes pt reports elevated HgbA1c. Diabetes (Chronic) Hypertension (Chronic) Insomnia Renal insufficiency (Chronic) Urinary tract infection (Acute) Surgical History Appendectomy section x2. No complications. Cholecystectomy Coronary Stent Family History Grandmother , ovarian CA. at age 89. No problems noted. Social History Smoking/Tobacco Use Status: Former Tobacco Use Quit Date: 04/13/19 Quit status: considering quitting Alcohol Intake: never Drug use: Never Substance use type: does not use Details: trying to stop smoking Do you feel safe at home: Yes Do you feel safe in your relationship?: Yes Exam Const General: cooperative, healthy appearing and no acute distress HENMT Head: normal to inspection Ears: hearing grossly normal bilaterally, external ears normal and TM's normal bilaterally General nose exam: external nose normal Face and sinus: normal facial exam Mouth: moist mucous membranes, oral mucosa abnormal ulceration (scattered lesions, tender) and white patches (scattered on tongue and buccal mucosa), tongue abnormal ulcerated (red white patches scattered, tender) and other (posterior pharynx within normal limits) Eyes General: appearance normal, both eyes and all related structures Neck Neck: normal visual inspection, no lymphadenopathy, no meningeal signs, trachea midline, supple and No submandibular swelling Resp Effort & Inspection: normal respiratory effort and able to speak in complete sentences Cardio Rate: regular rate Skin General skin exam: no rashes or lesions noted Neuro General: alert, awake and oriented x3 Motor: muscle tone normal throughout Extrem General: normal to inspection and full ROM Psych Appearance: grossly normal Affect: normal affect Course Vital Signs Vital signs: Vital Signs Temperature 98.1 F 06/13/19 09:03 Pulse 99 H 06/13/19 09:03 Respiratory Rate 18 06/13/19 09:03 Blood Pressure 152/83 H 06/13/19 09:03 Pulse Oximetry 100 06/13/19 09:03 Temperature 98.1 F 10/20/19 09:03 Temperature Source Temporal Artery Scan 06/13/19 09:03 Pulse 99 H 06/13/19 09:03 Respiratory Rate 18 06/13/19 09:03 Respiratory Effort Non-Labored 06/13/19 09:06 Blood Pressure 152/83 H 06/13/19 09:03 Blood Pressure Position Sitting 06/13/19 09:03 Pulse Oximetry 100 06/13/19 09:03 Oxygen Delivery Method Room Air 06/13/19 09:03 Oxygen Flow Rate 0 06/13/19 09:03 Pain Level 0 06/13/19 09:03
== END 2019-06-13 09:33 | disposition home or self-care (01) ==
PROVIDERS: Emergency Provider Physician Assistant; PCP Nurse Practitioner Family
DX: B37.0 Candidal stomatitis (principal); K13.79 Other lesions of oral mucosa
CPT/HCPCS: 99283

== ENCOUNTER → 2019-07-01 12:45 | Outpatient (BNVA) | payer MEDICARE, MEDICAID, SELFPAY | PROVIDERS: PCP Nurse Practitioner Family; Referring Provider Nurse Practitioner Family; Visit Provider Internal Medicine Cardiovascular Disease | DX: I25.10 Atherosclerotic heart disease of native coronary artery without angina pectoris (principal); I10 Essential (primary) hypertension; E11.9 Type 2 diabetes mellitus without complications; Z79.4 Long term (current) use of insulin; J44.9 Chronic obstructive pulmonary disease, unspecified; Z87.891 Personal history of nicotine dependence | CPT/HCPCS: 99214 ==

== ENCOUNTER 2019-08-26 02:15 | Outpatient (CLI) | payer MEDICARE, MEDICAID, SELFPAY ==
--- NOTE | 2019-08-26 15:30 | DI.MRI_ITS ---
EXAM: MR LUMBAR SPINE WO CLINICAL HISTORY: LOW BACK PAIN RADIATING DOWN BOTH LEGS M54.5. TECHNIQUE: Multiplanar multisequence MRI was performed. COMPARISON: No exams were available for comparison FINDINGS: MR examination of the lumbosacral spine was performed according to the usual protocol. There are mil d hypertrophic degenerative changes of the facet joints at L3-4 L4-5 L5-S1 bilaterally. No bony spin al canal central stenosis or neural foraminal stenosis seen. No disc herniation. Normal appearance of the conus medullaris no bony signal abnormality seen lumbar region. IMPRESSION: Mild facet DJD. Examination is otherwise unremarkable.
== END 2019-08-26 02:35 ==
PROVIDERS: PCP Nurse Practitioner Family; Visit Provider Nurse Practitioner Family
DX: M54.5 Low back pain (principal); M54.16 Radiculopathy, lumbar region; M47.817 Spondylosis without myelopathy or radiculopathy, lumbosacral region
CPT/HCPCS: 72148

== ENCOUNTER 2019-10-28 09:23 | Outpatient (CLI) | payer MEDICARE, MEDICAID, SELFPAY ==
--- NOTE | 2019-10-28 06:00 | DI.RAD_ITS ---
EXAM: XR PAIN CLINIC LUMBAR SP 2V CLINICAL HISTORY: Dx: Lumbar Spondylosis, LUMBAR MEDIAL BRANCH BLOCK TECHNIQUE: Realtime digital imaging was performed. CONTRAST MATERIAL: Water soluble contrast was administered. COMPARISON: No exams were available for comparison FINDINGS: Fluoroscopy was utilized by Dr. Flores during the performance of a lumbar medial branch block. Please refer to the procedure report for complete details. FLUORO TIME: 61.5 seconds DATA REPOSITORY: RADIATION DOSE DELIVERED:
[2019-10-28 09:36] VITALS: BP 127/85; PULSE 103; RESP 22; TEMP 36.2; O2SAT 98
[2019-10-28 10:07] VITALS: BP 145/86; PULSE 97; RESP 15; O2SAT 100
--- NOTE | 2019-10-28 10:08 | PDOC.PAIN ---
Pain Clinic Procedure Note Procedure Note Procedure Note: Lumbar/Sacral Medial Branch Blocks DOROTHY HONEYCUTT has been referred to the [facility] for lumbar/sacral medial branch blocks. COMMENTS: Previously seen in our clinic by Kavita Gokul on 09/23/19. I did review that evaluation. DX: Lumbosacral spondylosis without myelopathy Patient was interviewed and the medical record reviewed. There were no medical, pharmacologic, radiographic or other structural contraindications to attempting fluoroscopically guided local anesthetic lumbar/sacral medial branch blocks. Risks and expected side effects as well as potential benefit of the procedure were reviewed and voiced concerns addressed. The printed consent form was signed and witnessed. Standard time-out procedure was performed. Patient was placed in the prone position on the fluoroscopy table and automated blood pressure cuff and pulse oximeter applied. The skin entry points for approaching the anatomic target points of the segmental medial branches of bilateral L3-L5DR were identified with anfluoroscopy and marked. Following thorough Chlorhexadine preparation of the skin and draping and 1% lidocaine infiltration of the skin entry points and subcutaneous tissues, a 25 gauge spinal needle was placed under fluoroscopic guidance down on to the target point for each respective segmental medial branch.Position was confirmed in A/P, oblique and lateral views and with 0.25ml of omnipaque 240. At this point I did inject 0.5ml of 0.5% Bupivacaine to each segmental nerve. Vital signs were stable throughout the procedure and were as recorded in the docflowsheet by the nursing staff. Follow up plans and appointments were discussed and was instructed to keep careful note of how the usual pain was modified by these injections. Specifically was asked to keep a pain diary for the next 24 hours using a numeric pain scale of 0-10 and report these results at the follow-up visit. Post procedure instruction was given as documented in the nursing documentation and having met discharge criteria. Patient was discharged from the [facility]. Based on the medial branches blocked today, if the patient has adequate relief and we are able to proceed to radiofrequency ablation, the treatment should result in the denervation of the bilateral L4-L5 and L5-S1 FACET JOINTS. We would expect to denervate a total of 4 facets during the radiofrequency ablation. COMMENTS: She will call back with her 1-4 hour post-procedure pain scores. Kit Flores DO, MPH [facility] - Subspecialty Board Certification in Pain Medicine CC: Maylin Garcia
[2019-10-28] MEDS: Omnipaque 240 MG/ML 50 ML BTL IJ (10:22)
[2019-10-28] MEDS: Bupivacaine 0.5% Pres-Free 10 ML VIAL IJ (10:22)
== END 2019-10-28 09:43 ==
PROVIDERS: PCP Nurse Practitioner Family; Visit Provider Preventive Medicine Occupational Medicine
DX: M47.817 Spondylosis without myelopathy or radiculopathy, lumbosacral region (principal)
CPT/HCPCS: 64493; 64494; 72100; Q9967

== ENCOUNTER 2019-12-14 19:54 | Emergency (ER) | payer MEDICARE, MEDICAID, SELFPAY ==
--- NOTE | 2019-12-14 19:57 | ED.GENADUL_ITS ---
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, Chronic kidney disease, Acute kidney injury, Acute dehydration, Hyperglycemia Primary Care Provider: Maylin Garcia ED Provider: Harini Fields Home Meds and New Rx's Prescriptions: Continued nystatin 100,000 unit/mL Suspension 5 ml PO QID PRN PRNRF: 0 hydrocodone-acetaminophen 5-325 mg Tablet 1 tab PO Q6H PRNRF: 0 Lidocaine Viscous 2 % Solution 1 applic MUCOUS MEMBRANE BID PRNRF: 0 pyridoxine (vitamin B6) 100 mg Tablet 100 mg PO DAILY RF: 0 albuterol sulfate [Ventolin HFA] 90 mcg/actuation Hfa Aerosol Inhaler 2 puff INHALATION Q4H PRN PRNRF: 0 Narcan 4 mg/actuation [place],Non-Aerosol 4 mg INTRANASAL PRN PRNRF: 0 lorazepam [Ativan] 0.5 mg tablet 0.5 mg PO DAILY PRNRF: 0 zolpidem 10 MG tablet 10 mg PO HS PRNRF: 0 duloxetine [Cymbalta] 60 MG capsule,delayed release(DR/EC) 60 mg PO DAILY RF: 0 cyclobenzaprine 10 mg tablet 10 mg PO HS PRN (Reason: muscle spasm) Qty: 10 RF: 0 nitroglycerin [Nitrostat] 0.4 MG tablet, sublingual 0.4 mg Sublingual PRN PRNRF: 0 atorvastatin [Lipitor] 40 MG tablet 40 mg PO QPM Qty: 30 RF: 0 insulin aspart U-100 [Novolog Flexpen U-100 Insulin] 300 UNITS/3 ML insulin pen 0 units Sub-Q 0800,1200,1700 Qty: 1 RF: 1 aspirin 81 mg Tablet,Chewable 1 tab PO DAILY RF: 0 lisinopril 2.5 mg Tablet 1 tab PO DAILY RF: 0 Dexilant 60 mg Capsule,Biphase Delayed Releas 1 tab PO DAILY RF: 0 Basaglar KwikPen U-100 Insulin 100 unit/mL (3 mL) insulin pen 50 unit subcut DAILY RF: 0 magnesium oxide 250 mg tablet 400 mg PO BID RF: 0 Discharge Instructions Instructions: Dehydration (ED), Diabetic Hyperglycemia (ED) Additional Instructions: Encourage water intake. You have evidence of dehydration and kidney injury in your labs. Please call you primary care tomorrow morning as your labs should be reassessed in the next 24-48 hours. Please take your medications as prescribed. Please continue to monitor your glucose. Please discuss referral to secondary connector armature with your primary care. Try to cut back on foods high in carbohydrates. If you develop shortness of breath, nausea/vomiting, pain, fevers/chills or other new/worsening symptoms please seek care urgently once again. Referrals: Maylin Garcia [Primary Care Provider] - Medical Decision Making Patient is a 59 year old female presenting today for evaluation of elevated glucose. She states that she missed her long acting insulin dosing yesterday, had a large internal grinder for dinner last night. States that she has had glucose >600 today. Used 2 extra doses of short acting insulin today, 20 units at 12 and 10 units at 3pm. She states no food intake today , she thought this would help with her glucose. She states that typically her glucose is around 300. Based on her historical A1C measurements, patient has been noncompliant with her diabetes control. She states that she is asymptomatic with her hyperglycemia. She denies GI upset. No evidence of illness. She denies ever having DKA historically. Denies visual changes, SOB, N/V/D, abdominal pain, CP, dysuria, increased frequency/urgency. On exam, patient is resting comfortably.She appears dry but exam is otherwise unremarkable. Initial BGL 478. VS WNL. No abnormality noted on CBC. Hyponatremic at 131, BUN elevated at46,creatinine 2.22, glucose 496, magnesium 1.3. She has hx of chronic kidney disease, creatinine is typically around 1.8. No ketones in the urine. UA is contaminated but patient denies symptoms of UTI. Patient received 2L NS 10units SQ insulin, 1g magnesium. Herglucose is down trending at 427 and she is now requesting discharge. I do not see evidence of DKA or HHS. She does not have evidence of infection. We discussed the importance of mediction compliance, discussed dietary recommendations. She does not seem to have good grasp of diet expectations of diabetes. I have advised that she discuss dietitian with her PCP. She will call PCP tomorrow to schedule f/u appointment. Advised she needs to have her kidney function reassessed along with her glucose and electrolytes. She was given strict return precautions. All of her questions and concerns were addressed, she is in agreement with this plan. HPI General Mode of arrival: ambulatory . Date/Time Provider Initiated Documentation: 12/14/19 19:55 . Limitations to Documentation: no limitations . Information obtained by: patient and RN notes reviewed . HPI Narrative: Patient is a 59 year old female presenting today with c/c of hyperglycemia. She states that she has had glucose >600 when she has checked it today at home. Missed dose of long acting insulin yesterday. Dosed as she typically would this morning. She used 20 units of short acting at noon and then another 10 units at 3pm. States that she has had no PO intake today becuase she was concerned about her glucose. She states she had a large internal grinder for dinner last night. Patient states she has been having weight gain as she is quitting smoking. She states her glucose is typically around 300. Last A1C 11.7. She denies AMS, states she has not felt ill. Denies fevers/chills, abdominal pain, N/V/D, dysurea, CP, SOB Related Data Home Medications Medication Instructions Recorded Confirmed duloxetine [Cymbalta] 60 mg PO DAILY 12/19/15 12/14/19 zolpidem 10 mg PO HS PRN 12/19/15 12/14/19 nitroglycerin [Nitrostat] 0.4 mg SUBLINGUAL PRN PRN 06/01/17 12/14/19 atorvastatin [Lipitor] 40 mg PO QPM #30 tab 06/04/17 12/14/19 insulin aspart U-100 [Novolog 0 units SUB-Q 0800,1200,1700 #1 ea 06/04/17 12/14/19 Flexpen U-100 Insulin] aspirin 1 tab PO DAILY 04/26/18 12/14/19 lisinopril 1 tab PO DAILY 04/26/18 12/14/19 Dexilant 1 tab PO DAILY 05/10/18 12/14/19 lorazepam 0.5 mg tablet 0.5 mg PO DAILY PRN tab 06/25/18 12/14/19 magnesium oxide 400 mg PO BID 10/28/18 12/14/19 cyclobenzaprine 10 mg PO HS PRN #10 tab 03/13/19 12/14/19 insulin glargine 100 unit/mL (3 50 unit SUBCUT DAILY ml 07/01/19 12/14/19 mL) subcutaneous pen Lidocaine Viscous 1 applic MUCOUS MEMBRANE BID PRN 09/10/19 12/14/19 Narcan 4 mg INTRANASAL PRN PRN 09/10/19 12/14/19 albuterol sulfate [Ventolin HFA] 2 puff INHALATION Q4H PRN PRN 09/10/19 12/14/19 hydrocodone-acetaminophen 1 tab PO Q6H PRN 09/10/19 12/14/19 nystatin 5 ml PO QID PRN PRN 09/10/19 12/14/19 pyridoxine (vitamin B6) 100 mg PO DAILY 09/10/19 12/14/19 Previous Rx's Medication Instructions Recorded atorvastatin [Lipitor] 40 mg PO QPM #30 tab 06/04/17 insulin aspart U-100 [Novolog 0 units SUB-Q 0800,1200,1700 #1 ea 06/04/17 Flexpen U-100 Insulin] cyclobenzaprine 10 mg PO HS PRN #10 tab 03/13/19 Allergies Allergy/AdvReac Type Severity Reaction Status Date / Time quetiapine [From Seroquel] Allergy Intermediate Unverified 10/28/19 09:30 amoxicillin [From Augmentin] Allergy Unverified 10/28/19 09:30 clavulanic acid Allergy Unverified 10/28/19 09:30 [From Augmentin] Penicillins Allergy Unverified 10/28/19 09:30 Sulfa (Sulfonamide Allergy Unverified 10/28/19 09:30 Antibiotics) exenatide [From [place]] AdvReac Intermediate diarrhea Unverified 10/28/19 09:30 metformin AdvReac Intermediate diarrhea Unverified 10/28/19 09:30 amitriptyline AdvReac made my Unverified 10/28/19 09:30 face go numb amoxicillin trihydrate AdvReac acute Unverified 10/28/19 09:30 [From Augmentin] kidney failure NSAIDS (Non-Steroidal AdvReac stage III Unverified 10/28/19 09:30 Anti-Inflamma kidney disease potassium clavulanate AdvReac acute Unverified 10/28/19 09:30 [From Augmentin] kidney failure General SADE: 4 Review of Systems Constitutional Constitutional: Reports as per HPI, Denies chills, Denies fatigue, Denies fever(s) and Denies headache(s) ENT Ears, Nose, Mouth, and Throat: Denies headache(s) Cardiovascular Cardiovascular: Reports as per HPI, Denies chest pain and Denies dyspnea Respiratory Respiratory: Reports as per HPI, Denies cough and Denies dyspnea Gastrointestinal Gastrointestinal: Reports as per HPI Musculoskeletal Musculoskeletal: Reports as per HPI and Denies back pain Integumentary/Breasts Skin/Breast: Reports as per HPI and Denies rash Neurologic Neurologic: Reports as per HPI and Denies headache(s) Endocrine Endocrine: Denies fatigue, Denies polydipsia and Denies polyuria [facility] Medical History Acute exacerbation of chronic obstructive airways disease (Acute) Acute sinusitis (Acute) Allergic rhinitis (Acute) Anemia (Chronic) Benign neoplasm of peripheral nerve (Acute) Benign neoplasm of peripheral nerves and autonomic nervous system, unspecified (Acute) Cataracts, bilateral (Acute) Chronic renal impairment associated with type 2 diabetes mellitus (Acute) CKD stage 3 due to type 2 diabetes mellitus (Acute) Colon polyp (Acute) Coronary artery disease (Chronic) Depression Diabetes pt reports elevated HgbA1c. 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 No complications. Cholecystectomy Coronary Stent H/O lumpectomy (Acute) Hx of tubal ligation (Chronic) Family History (Updated 09/10/19 @ 11:44 by Blanca Chicas RN) Brother Diabetes Hypertension Heart disease Stroke Obesity Chronic headaches Arthritis Brother Arthritis Chronic headaches Diabetes Heart disease Hypertension Obesity Stroke Father Heart disease Stroke Hypertension Chronic headaches Sister Diabetes Obesity Osteoporosis Daughter Migraine Obesity Brother Arthritis Diabetes Chronic headaches Hypertension Obesity Stroke Mother Asthma Arthritis Diabetes Obesity Stroke Glaucoma Social History Smoking/Tobacco Use Status: Former Tobacco Use Quit Date: 04/13/19 Pack-years: 45 Tobacco: How many years used: 45 Quit status: considering quitting Alcohol Intake: never Drug use: Never Substance use type: does not use Details: Quit smoking 6 months ago. Household members: friend(s) Housing: apartment Number of Children: 3 number of grandchildren: 14 current occupation: none What is your relationship status?: Panel score (0-1 are the most socially isolated patients): 0 What type of physical activity do you participate in: none Do you feel safe at home: Yes Do you feel safe in your relationship?: Yes Exam Const General: cooperative, healthy appearing, comfortable, no acute distress and well developed Nutritional Appearance: well nourished and overweight Orientation: alert and awake HENMT Head: normal to inspection Mouth: mucous membranes dry (appears dry) Resp Effort & Inspection: normal respiratory effort, able to speak in complete sentences and no respiratory distress Auscultation: clear to auscultation bilaterally, no rales, no rhonchi and no wheezes Cardio Rate: regular rate Rhythm: regular rhythm Heart Sounds: S1 normal and S2 normal GI Inspection: normal to inspection, non-distended, obesity and no visible he rniation Palpation: soft, no hepatosplenomegaly, no guarding and nontender Auscultation: normal bowel sounds Back/Spine/Pelvis Back: no CVA tenderness Skin General skin exam: no rashes or lesions noted Trauma: no lacerations or abrasions Neuro General: patient alert and patient awake Cognition: normal cognition Speech: speech normal Gait: normal gait Psych Appearance: grossly normal and well kempt Mental Status: mental status grossly normal Speech and Movement: speech and movement normal
[2019-12-14 19:59] VITALS: BP 135/83; PULSE 90; RESP 16; TEMP 36.5; O2SAT 97
[2019-12-14] MEDS: Normal Saline 1,000 ML 1000 ML IV ×2 (20:13→21:09)
[2019-12-14 20:22] LABS: Abs Immature Grans 0.03 k/cumm (0.0-0.09); Absolute Basophil Count 0.05 k/cumm (0.0-0.2); Absolute Eosinophil Count 0.18 k/cumm (0.0-0.7); Absolute Monocyte Count 0.46 k/cumm (0.11-0.7); Absolute Neutrophil Count 4.74 k/cumm (1.2-6.7); Basophils % 0.6; Eosinophils % 2.3; HGB 12.8 g/dL (12.0-15.5); Immature Grans % 0.4 %; Lymphocytes % 29.6; Mean Corp. HGB Concentration 35.6 g/dL (32.0-36.0); Mean Corpuscular Hemoglobin 29.9 pg (27.0-33.0); Mean Corpuscular Volume 84.1 fL (80-95); Monocytes % 5.9; Neutrophils % 61.2; Platelet Count 239 x1000/uL (130-400); RBC 4.28 m/cumm (4.00-5.20); RBC Distribution Width 12.6 % (11.7-14.6); White Blood Cell Count 7.76 k/cumm (4.4-10.8)
[2019-12-14 20:33] LABS: ALT 20 U/L (14-59); AST 12 U/L (15-37); Albumin 3.5 g/dL (3.4-5.0); Alkaline Phosphatase 104 U/L (46-116); BUN 46 mg/dL (7-18); Bilirubin, Total 0.7 mg/dL (0.2-1.0); CREATININE 2.22 mg/dL (0.55-1.02); Calcium 9.2 mg/dL (8.5-10.1); Chloride 96 mmol/L (98-107); Estimated GFR 22.61 (mL/min/1.73m2); Glucose 496 mg/dL (74-106); Magnesium 1.3 mg/dL (1.8-2.4); Potassium 4.2 mmol/L (3.5-5.1); Sodium 131 mmol/L (136-145); Total Protein 7.7 g/dL (6.4-8.2)
[2019-12-14] MEDS: MAGNESIUM SULFATE 1 GM/100 ML BAG IVPB (21:08)
[2019-12-14] MEDS: Insulin REGULAR-Human 100 UNITS/ML UNIT 10 UNITS SC (21:09)
[2019-12-14 22:00] LABS: Bilirubin Negative (Negative); Blood Negative (Negative); Clarity Clear (Clear); Glucose >=1000 mg/dL (Negative); Ketones Negative (Negative); Leukocyte Esterase Small (Negative); Nitrite Negative (Negative); Specific Gravity 1.015 (1.005-1.025); Urobilinogen 0.2 EU/dL (Up TO 0.2); pH 5.5 (5-8)
[2019-12-14 22:09] VITALS: BP 136/68; PULSE 85; RESP 16; TEMP 36.5; O2SAT 100
[2019-12-14 22:13] LABS: Bacteria Moderate HPF (Negative); C & S Indicated? No/Sq. Contamination; Casts Negative LPF (Negative); Crystals Negative HPF (Negative); Epithelial Cells Many HPF (Negative); Mucus Negative (Negative); RBC Negative HPF (0-2); WBC >50 HPF (0-5)
== END 2019-12-14 22:45 | disposition home or self-care (01) ==
PROVIDERS: Emergency Provider Physician Assistant; PCP Nurse Practitioner Family
DX: E10.319 Type 1 diabetes mellitus with unspecified diabetic 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 edema (principal); N18.3 Chronic kidney disease, stage 3 (moderate); N17.9 Acute kidney failure, unspecified; E86.0 Dehydration; E10.65 Type 1 diabetes mellitus with hyperglycemia; J44.9 Chronic obstructive pulmonary disease, unspecified; I10 Essential (primary) hypertension
CPT/HCPCS: 36416; 80053; 82962; 96361; 96365; 96366; 96372; 99285; 81003; 81015; 83735; 85025; 99284; J3475

== ENCOUNTER 2020-05-18 01:32 | Outpatient (CLI) | payer MEDICARE, MEDICAID, SELFPAY | END 2020-05-18 01:52 | PROVIDERS: PCP Nurse Practitioner Family; Visit Provider Nurse Practitioner Family | DX: R69 Illness, unspecified (principal) ==

== ENCOUNTER 2020-06-24 16:00 | Emergency (ER) | payer MEDICARE, MEDICAID, SELFPAY ==
[2020-06-24] VITALS (44 sets, daily range): BP systolic 79–137; BP diastolic 61–83; PULSE 89–117; RESP 11–27; TEMP 36.6; O2SAT 93–99
--- NOTE | 2020-06-24 16:15 | RT.EKG_ITS ---
APPROVED REPORT Exam: Resting ECG Patient Location: E HR:106 bpm ECG Measurements Heart Rate 106 AXIS NH 196 P 49 QRSd 73 QRS -16 QT 329 T 62 QTc 437 Conclusion Sinus tachycardia inferior, anterior q waves
--- NOTE | 2020-06-24 16:38 | W.ED.GENAD ---
Discharge Plan Disposition Patient Disposition: HOME Condition: Stable Discharge Details Clinical Impression: UTI (urinary tract infection), Weakness Primary Care Provider: Maylin Garcia ED Provider: Ap Wang Home Meds and New Rx's Prescriptions: Continued nystatin 100,000 unit/mL Suspension 5 ml PO QID PRN PRNRF: 0 Narcan 4 mg/actuation [place],Non-Aerosol 4 mg INTRANASAL PRN PRNRF: 0 (DME) rolling walker with seat Qty: 1 RF: 0 zolpidem 10 MG tablet 10 mg PO HS PRNRF: 0 nitroglycerin [Nitrostat] 0.4 MG tablet, sublingual 0.4 mg Sublingual PRN PRNRF: 0 insulin aspart U-100 [Novolog Flexpen U-100 Insulin] 300 UNITS/3 ML insulin pen 0 units Sub-Q 0800,1200,1700 Qty: 1 RF: 1 cyclobenzaprine 10 mg tablet 10 mg PO Q8H PRN PRNRF: 0 atorvastatin 40 mg tablet 40 mg PO DAILY RF: 0 prednisone 10 mg tablet 10 mg PO DAILY RF: 0 cetirizine 10 mg tablet 10 mg PO DAILY RF: 0 hydrocodone-acetaminophen 5-325 mg tablet 1 tab PO Q8H PRN PRNRF: 0 cyanocobalamin (vitamin B-12) [Vitamin B-12] 1,000 mcg tablet 1,000 mcg PO DAILY RF: 0 ciprofloxacin HCl 250 mg tablet 250 mg PO BID RF: 0 aspirin 81 mg tablet,delayed release (DR/EC) 81 mg PO DAILY RF: 0 bupropion HCl 100 mg tablet sustained-release 12 hr 100 mg PO DAILY RF: 0 magnesium oxide 400 mg (241.3 mg magnesium) tablet 400 mg PO BID RF: 0 lorazepam 0.5 mg tablet 0.5 mg PO PRN PRNRF: 0 lisinopril 5 mg tablet 5 mg PO DAILY RF: 0 pyridoxine (vitamin B6) 100 mg tablet 100 mg PO DAILY RF: 0 fluticasone propionate 50 mcg/actuation spray,suspension 1 spray INTRANASAL DAILY RF: 0 duloxetine 30 mg capsule,delayed release(DR/EC) 30 mg PO DAILY RF: 0 duloxetine 60 mg capsule,delayed release(DR/EC) 60 mg PO DAILY RF: 0 Basaglar KwikPen U-100 Insulin 100 unit/mL (3 mL) insulin pen 50 unit SUBCUT DAILY RF: 0 Dexilant 60 mg capsule,biphase delayed releas 60 mg PO DAILY RF: 0 Flovent HFA 110 mcg/actuation Hfa Aerosol Inhaler 1 puff INHALATION BID PRNRF: 0 Discharge Instructions Instructions: Urinary Tract Infection in Women (ED), Weakness (ED) Additional Instructions: Be sure to take your medications as directed, including your ciprofloxacin. Plenty of fluids to avoid dehydration. Please watch for new or worsening symptoms and return to the ER for any concerns. I did place you on the care management list, they should be contacting you within the next few days to discuss additional resources. Discharge Data Discharge Date/Time-TO BE ENTERED AT DEPARTURE: 06/24/20 21:05 Medical Decision Making 60-year-old female who was noncompliant with her medications on Friday and Friday, subsequently developed UTI-like symptoms, generalized weakness and fatigue. Contacted her primary care provider, prescribed Cipro and outpatient labs however she could not make it to the lab yesterday so came to the ER today instead. Clinically she appears well, nontoxic, neurologically intact, no focal weaknesses. She does present mildly tachycardic. She denies any chest pain, shortness of breath, fever. She admits that she can feel that her heart was going fast earlier. She does not describe this as a regular in nature. She is very concerned about going home, her living conditions, her lack of help at home, etc. I do believe that her presentation today is multifactorial. Given her chief complaint I will obtain IV access, obtain cardiac work-up including serial troponin, urinalysis, and give IV fluid for her dry mucous membranes and mild tachycardia. I will also give her a single dose of her Cipro 250 as she did not take it today. Laboratory evaluation reveals a white blood cell count of 10.75 hemoglobin 11.6 hematocrit 33.0 platelet count 256. Potassium 5.0 creatinine 2.09 GFR 24.16 glucose 215 magnesium 1.5 urinalysis positive nitrate trace leukoesterase 10-20 white blood cells. Many bacteria. Renal function appears to be near baseline. Glucose only of 215. Patient is receiving 1 L IV fluid. Will replenish with 1 g IV magnesium. Patient already received 250 Cipro Patient was witnessed ambulating steadily to the restroom using a walker. She states that she is a walker at home. Discussed work-up with the patient. Heart rate is now 92. She appears well, nontoxic. No focal weakness. Patient is agreeable to awaiting a repeat troponin. Repeat troponin less than 0.05. Upon reevaluation patient was informed of her troponin. We discussed disposition. She will be discharged home, her family is coming to pick her up. Patient again lives at home with her daughter and her grandchildren. She has a lack of resources at home and has concerns regarding her current living status. She does feel safe. I have placed her on the career services director list so that they may reach out to her to discuss additional outpatient resources and potential home health, etc. Patient is agreeable to this plan, comfortable with discharge at this time, and understands the importance of taking her medications as directed. She was encouraged to reach out to her primary care provider on Friday otherwise return to the ER for new or evolving symptoms. Medical Records Medical records reviewed: Yes I reviewed the patient's medical records. Lab Data Lab results reviewed: Yes I reviewed the patient's lab results. Lab results narrative: Laboratory Tests Range/Units 06/24/20 06/24/20 06/24/20 16:30 16:30 16:30 WBC (4.4-10.8) 10^3/uL 10.75 RBC (3.93-5.22) 10^6/uL 3.79 L Hgb (11.2-15.7) g/dL 11.6 Hct (36.0-46.0) % 33.0 L MCV (80-95) fL 87.1 MCH (27.0-33.0) pg 30.6 MCHC (32.0-36.0) % 35.2 RDW (11.7-14.6) % 12.4 Plt Count (130-400) 10^3/uL 256 MPV (8.0-11.0) fL 10.1 Immature Gran % 0.9 Neutrophils % 80.8 Lymphocytes % 13.3 Monocytes % 3.7 Eosinophils % 0.9 Basophils % 0.4 Nucleated RBC % % 0 Absolute Neutrophils (1.2-6.7) 10^3/uL 8.68 H Absolute Lymphocytes (1.2-3.4) 10^3/uL 1.43 Absolute Monocytes (0.1-0.8) 10^3/uL 0.40 Absolute Eosinophils (0.0-0.7) 10^3/uL 0.10 Absolute Basophils (0.0-0.2) 10^3/uL 0.04 Sodium (136-145) mmol/L 133 L Potassium (3.5-5.1) mmol/L 5.0 Chloride (98-107) mmol/L 102 Carbon Dioxide (21.0-32.0) mmol/L 23.4 Anion Gap (3-11) mmol/L 7.6 BUN (7-18) mg/dL 56 H Creatinine (0.55-1.02) mg/dL 2.09 H Estimated GFR/1.73 m2 (mL/min/1.73m2) 24.16 Glucose (74-106) mg/dL 215 H Calcium (8.5-10.1) mg/dL 9.0 Magnesium (1.8-2.4) mg/dL Total Bilirubin (0.2-1.0) mg/dL 0.3 AST (15-37) U/L 14 L ALT (14-59) U/L 21 Alkaline Phosphatase (46-116) U/L 97 Troponin I (<0.06) ng/mL < 0.05 Total Protein (6.4-8.2) g/dL 7.1 Albumin (3.4-5.0) g/dL 3.2 L TSH (0.36-3.74) uIU/mL Urine Color (Yellow) Urine Clarity (Clear) Urine pH (5-8) Ur Specific Alexander (1.005-1.025) Urine Protein (Negative) mg/dL Urine Ketones (Negative) mg/dL Urine Blood (Negative) Urine Nitrite (Negative) Urine Bilirubin (Negative) Urine Urobilinogen (Up TO 0.2) EU/dL Ur Leukocyte Esterase (Negative) Urine RBC (0-2) HPF Urine WBC (0-5) HPF Ur Epithelial Cells (Negative) HPF Urine Crystals (Negative) HPF Urine Bacteria (Negative) HPF Urine Casts (Negative) LPF Urine Mucus (Negative) Ur Culture Indicated? Urine Glucose (Negative) mg/dL Range/Units 06/24/20 06/24/20 06/24/20 16:30 16:30 16:35 WBC (4.4-10.8) 10^3/uL RBC (3.93-5.22) 10^6/uL Hgb (11.2-15.7) g/dL Hct (36.0-46.0) % MCV (80-95) fL MCH (27.0-33.0) pg MCHC (32.0-36.0) % RDW (11.7-14.6) % Plt Count (130-400) 10^3/uL MPV (8.0-11.0) fL Immature Gran % Neutrophils % Lymphocytes % Monocytes % Eosinophils % Basophils % Nucleated RBC % % Absolute Neutrophils (1.2-6.7) 10^3/uL Absolute Lymphocytes (1.2-3.4) 10^3/uL Absolute Monocytes (0.1-0.8) 10^3/uL Absolute Eosinophils (0.0-0.7) 10^3/uL Absolute Basophils (0.0-0.2) 10^3/uL Sodium (136-145) mmol/L Potassium (3.5-5.1) mmol/L Chloride (98-107) mmol/L Carbon Dioxide (21.0-32.0) mmol/L Anion Gap (3-11) mmol/L BUN (7-18) mg/dL Creatinine (0.55-1.02) mg/dL Estimated GFR/1.73 m2 (mL/min/1.73m2) Glucose (74-106) mg/dL Calcium (8.5-10.1) mg/dL Magnesium (1.8-2.4) mg/dL 1.5 L Total Bilirubin (0.2-1.0) mg/dL AST (15-37) U/L ALT (14-59) U/L Alkaline Phosphatase (46-116) U/L Troponin I (<0.06) ng/mL Total Protein (6.4-8.2) g/dL Albumin (3.4-5.0) g/dL TSH (0.36-3.74) uIU/mL 1.49 Urine Color (Yellow) Yellow Urine Clarity (Clear) Cloudy Urine pH (5-8) 5.0 Ur Specific Alexander (1.005-1.025) 1.020 Urine Protein (Negative) mg/dL Negative Urine Ketones (Negative) mg/dL Negative Urine Blood (Negative) Negative Urine Nitrite (Negative) Positive H Urine Bilirubin (Negative) Negative Urine Urobilinogen (Up TO 0.2) EU/dL 0.2 Ur Leukocyte Esterase (Negative) Trace H Urine RBC (0-2) HPF 0-2 Urine WBC (0-5) HPF 10-20 H Ur Epithelial Cells (Negative) HPF Many Urine Crystals (Negative) HPF Negative Urine Bacteria (Negative) HPF Many Urine Casts (Negative) LPF Negative Urine Mucus (Negative) Negative Ur Culture Indicated? No/sq. contamination Urine Glucose (Negative) mg/dL Negative Range/Units 06/24/20 19:45 WBC (4.4-10.8) 10^3/uL RBC (3.93-5.22) 10^6/uL Hgb (11.2-15.7) g/dL Hct (36.0-46.0) % MCV (80-95) fL MCH (27.0-33.0) pg MCHC (32.0-36.0) % RDW (11.7-14.6) % Plt Count (130-400) 10^3/uL MPV (8.0-11.0) fL Immature Gran % Neutrophils % Lymphocytes % Monocytes % Eosinophils % Basophils % Nucleated RBC % % Absolute Neutrophils (1.2-6.7) 10^3/uL Absolute Lymphocytes (1.2-3.4) 10^3/uL Absolute Monocytes (0.1-0.8) 10^3/uL Absolute Eosinophils (0.0-0.7) 10^3/uL Absolute Basophils (0.0-0.2) 10^3/uL Sodium (136-145) mmol/L Potassium (3.5-5.1) mmol/L Chloride (98-107) mmol/L Carbon Dioxide (21.0-32.0) mmol/L Anion Gap (3-11) mmol/L BUN (7-18) mg/dL Creatinine (0.55-1.02) mg/dL Estimated GFR/1.73 m2 (mL/min/1.73m2) Glucose (74-106) mg/dL Calcium (8.5-10.1) mg/dL Magnesium (1.8-2.4) mg/dL Total Bilirubin (0.2-1.0) mg/dL AST (15-37) U/L ALT (14-59) U/L Alkaline Phosphatase (46-116) U/L Troponin I (<0.06) ng/mL < 0.05 Total Protein (6.4-8.2) g/dL Albumin (3.4-5.0) g/dL TSH (0.36-3.74) uIU/mL Urine Color (Yellow) Urine Clarity (Clear) Urine pH (5-8) Ur Specific [place] (1.005-1.025) Urine Protein (Negative) mg/dL Urine Ketones (Negative) mg/dL Urine Blood (Negative) Urine Nitrite (Negative) Urine Bilirubin (Negative) Urine Urobilinogen (Up TO 0.2) EU/dL Ur Leukocyte Esterase (Negative) Urine RBC (0-2) HPF Urine WBC (0-5) HPF Ur Epithelial Cells (Negative) HPF Urine Crystals (Negative) HPF Urine Bacteria (Negative) HPF Urine Casts (Negative) LPF Urine Mucus (Negative) Ur Culture Indicated? Urine Glucose (Negative) mg/dL ECG Data Attestation: I personally reviewed and interpreted this ECG (s) as follows: Interpretation: Please see official report by Dr. Lamas. Sinus tachycardia, ventricular rate of 106. No STEMI HPI General Mode of arrival: ambulatory. Date/Time Provider Initiated Documentation: 06/24/20 16:26. Limitations to Documentation: no limitations. Information obtained by: patient. HPI Narrative: 60-year-old female with past medical history of CAD, diabetes, hypertension, GERD, chronic renal disease, COPD, anxiety and depression, presents to the ER reporting that she is just not felt well for 3 days. She forgot to take all of her medications on Friday and Friday. Subsequently she noticed her sugar levels in the 600s but took her sliding scale last night and today her levels have been in the 200s. She has noticed some dysuria and frequency over the past several days, contacted her primary care provider yesterday for this. They ordered her outpatient laboratory studies and called her in Cipro. She took a single dose of Cipro yesterday, did not take any today. She did not have a ride yesterday but did not come to the hospital to have her labs drawn, came to the ER today instead. She reports general fatigue, malaise, I feel like I am 89 years old. She denies headache, fever, neck pain, chest pain, shortness of breath, abdominal pain, vomiting, back pain, hematuria, numbness, tingling, weakness. She does report mild nausea. She also states that earlier today she felt like her heart was going a little faster than usual but again no chest pain or shortness of breath. Denies pain or swelling in her legs. She is very concerned about her magnesium level as she states it does go low occasionally. She is frustrated at home because her daughter and her grandchildren live with her but did not really help out at home. Related Data Home Medications Medication Instructions Recorded Confirmed zolpidem 10 mg PO HS PRN 12/19/15 06/24/20 nitroglycerin [Nitrostat] 0.4 mg SUBLINGUAL PRN PRN 06/01/17 06/24/20 insulin aspart U-100 [Novolog 0 units SUB-Q 0800,1200,1700 #1 ea 06/04/17 06/24/20 Flexpen U-100 Insulin] Narcan 4 mg INTRANASAL PRN PRN 09/10/19 06/24/20 nystatin 5 ml PO QID PRN PRN 09/10/19 06/24/20 rolling walker with seat #1 ea 01/12/20 01/12/20 Basaglar KwikPen U-100 Insulin 50 unit SUBCUT DAILY 06/24/20 06/24/20 Dexilant 60 mg PO DAILY 06/24/20 06/24/20 Flovent HFA 1 puff INHALATION BID PRN 06/24/20 06/24/20 aspirin 81 mg PO DAILY 06/24/20 06/24/20 atorvastatin 40 mg PO DAILY 06/24/20 06/24/20 bupropion HCl 100 mg PO DAILY 06/24/20 06/24/20 cetirizine 10 mg PO DAILY 06/24/20 06/24/20 ciprofloxacin HCl 250 mg PO BID 06/24/20 06/24/20 cyanocobalamin (vitamin B-12) 1,000 mcg PO DAILY 06/24/20 06/24/20 [Vitamin B-12] cyclobenzaprine 10 mg PO Q8H PRN PRN 06/24/20 06/24/20 duloxetine 30 mg PO DAILY 06/24/20 06/24/20 duloxetine 60 mg PO DAILY 06/24/20 06/24/20 fluticasone propionate 1 spray INTRANASAL DAILY 06/24/20 06/24/20 hydrocodone-acetaminophen 1 tab PO Q8H PRN PRN 06/24/20 06/24/20 lisinopril 5 mg PO DAILY 06/24/20 06/24/20 lorazepam 0.5 mg PO PRN PRN 06/24/20 06/24/20 magnesium oxide 400 mg PO BID 06/24/20 06/24/20 prednisone 10 mg PO DAILY 06/24/20 06/24/20 pyridoxine (vitamin B6) 100 mg PO DAILY 06/24/20 06/24/20 Previous Rx's Medication Instructions Recorded insulin aspart U-100 [Novolog 0 units SUB-Q 0800,1200,1700 #1 ea 06/04/17 Flexpen U-100 Insulin] rolling walker with seat #1 ea 01/12/20 Allergies Allergy/AdvReac Type Severity Reaction Status Date / Time quetiapine [From Seroquel] Allergy Intermediate Unverified 06/24/20 16:13 amoxicillin [From Augmentin] Allergy Unverified 06/24/20 16:13 clavulanic acid Allergy Unverified 06/24/20 16:13 [From Augmentin] Penicillins Allergy Unverified 06/24/20 16:13 Sulfa (Sulfonamide Allergy Unverified 06/24/20 16:13 Antibiotics) exenatide [From [place]] AdvReac Intermediate diarrhea Unverified 06/24/20 16:13 metformin AdvReac Intermediate diarrhea Unverified 06/24/20 16:13 amitriptyline AdvReac made my Unverified 06/24/20 16:13 face go numb amoxicillin trihydrate AdvReac acute Unverified 06/24/20 16:13 [From Augmentin] kidney failure NSAIDS (Non-Steroidal AdvReac stage III Unverified 06/24/20 16:13 Anti-Inflamma kidney disease potassium clavulanate AdvReac acute Unverified 06/24/20 16:13 [From Augmentin] kidney failure General Stated Complaint: GenMedical SADE: 2 Review of Systems Constitutional Constitutional: Reports fatigue, Denies fever(s), Denies headache(s), Reports malaise and Reports weakness ENT Ears, Nose, Mouth, and Throat: Denies headache(s), Denies neck pain and Denies sore throat Cardiovascular Cardiovascular: Denies chest pain, Reports rapid heart rate and Denies dyspnea Respiratory Respiratory: Denies cough and Denies dyspnea Gastrointestinal Gastrointestinal: Denies abdominal pain, Reports nausea and Denies vomiting Genitourinary Genitourinary: Denies hematuria, Reports dysuria and Reports urinary urgency Musculoskeletal Musculoskeletal: Denies back pain and Denies neck pain Integumentary/Breasts Skin/Breast: Denies rash Neurologic Neurologic: Denies headache(s) and Reports weakness Endocrine Endocrine: Reports fatigue [facility] Medical History Acute exacerbation of chronic obstructive airways disease Acute sinusitis Allergic rhinitis Anemia Benign neoplasm of peripheral 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 No complications. Cholecystectomy Coronary Stent H/O lumpectomy Hx of tubal ligation Family History Brother Diabetes Hypertension Heart disease Stroke Obesity Chronic headaches Arthritis Brother Arthritis Chronic headaches Diabetes Heart disease Hypertension Obesity Stroke Father Heart disease Stroke Hypertension Chronic headaches Sister Diabetes Obesity Osteoporosis Daughter Migraine Obesity Brother Arthritis Diabetes Chronic headaches Hypertension Obesity Stroke Mother Asthma Arthritis Diabetes Obesity Stroke Glaucoma Social History Smoking/Tobacco Use Status: Former Tobacco Use Quit Date: 04/13/19 Pack-years: 45 Tobacco: How many years used: 45 Quit status: considering quitting Smoking risk assessment performed?: Yes Alcohol Intake: never Drug use: Never Substance use type: does not use Details: Quit smoking 6 months ago. Household members: friend(s) Housing: apartment Number of Children: 3 number of grandchildren: 14 current occupation: none What is your relationship status?: Panel score (0-1 are the most socially isolated patients): 0 What type of physical activity do you participate in: none Do you feel safe at home: Yes Do you feel safe in your relationship?: Yes Exam Const General: cooperative, healthy appearing, comfortable and no acute distress Orientation: alert, awake and oriented x3 HENMT Head: normal to inspection, normocephalic and atraumatic Face and sinus: normal facial exam Mouth: moist mucous membranes abnormal (Slightly dry) Throat: posterior oropharynx normal Eyes Conjunctivae: conjunctivae normal Sclera: sclerae normal Neck Neck: normal visual inspection, full ROM, no lymphadenopathy, no meningeal signs, trachea midline, supple and nontender Resp Effort & Inspection: normal respiratory effort and able to speak in complete sentences Auscultation: clear to auscultation bilaterally Cardio Rate: tachycardic (104) Rhythm: regular rhythm GI Inspection: normal to inspection and obesity Palpation: soft, not firm, no guarding and nontender Auscultation: normal bowel sounds Back/Spine/Pelvis Back: No back tenderness Skin General skin exam: no rashes or lesions noted Neuro General: patient alert, patient awake, patient oriented x3, moves all extremities and no focal motor deficits Cranial Nerves: CN's II-XI intact bilaterally Cognition: normal cognition Speech: speech normal Gait: normal gait Motor: muscle tone normal throughout and strength 5/5 throughout Sensory Exam: no sensory deficits noted Extrem General: normal to inspection, full ROM and capillary refill normal Psych Appearance: grossly normal Mental Status: mental status grossly normal Course Vital Signs Vital signs: Vital Signs Temperature 36.6 C 06/24/20 16:20 Pulse 115 H 06/24/20 16:20 Respiratory Rate 16 06/24/20 16:20 Blood Pressure 137/73 06/24/20 16:20 Pulse Oximetry 99 06/24/20 16:20 Temperature 36.6 C 06/24/20 16:20 Temperature Source Temporal Artery Scan 06/24/20 16:20 Pulse 115 H 06/24/20 16:20 Respiratory Rate 16 06/24/20 16:20 Respiratory Effort 06/24/20 16:23 Blood Pressure 137/73 06/24/20 16:20 Blood Pressure Position Supine 06/24/20 16:20 Pulse Oximetry 99 10/31/20 16:20 Oxygen Delivery Method Room Air 06/24/20 16:20 Oxygen Flow Rate 0 06/24/20 16:20
[2020-06-24 16:44] LABS: Absolute Basophil Count 0.04 10^3/uL (0.0-0.2); Absolute Lymphocyte Count 1.43 10^3/uL (1.2-3.4); Absolute Neutrophil Count 8.68 10^3/uL (1.2-6.7); Basophils % 0.4; Eosinophils % 0.9; HGB 11.6 g/dL (11.2-15.7); Immature Grans % 0.9; Lymphocytes % 13.3; MCH 30.6 pg (27.0-33.0); MCHC 35.2 % (32.0-36.0); MCV 87.1 fL (80-95); MPV 10.1 fL (8.0-11.0); Monocytes % 3.7; Neutrophils % 80.8; Nucleated RBC 0 %; Platelet Count 256 10^3/uL (130-400); RBC 3.79 10^6/uL (3.93-5.22); RDW 12.4 % (11.7-14.6); RDW-SD 39.2 fL; WBC 10.75 10^3/uL (4.4-10.8)
[2020-06-24 16:49] LABS: Bilirubin Negative (Negative); Blood Negative (Negative); Clarity Cloudy (Clear); Glucose Negative (Negative); Ketones Negative (Negative); Leukocyte Esterase Trace (Negative); Nitrite Positive (Negative); Urobilinogen 0.2 EU/dL (Up TO 0.2)
[2020-06-24 16:56] LABS: Bacteria Many HPF (Negative); C & S Indicated? No/Sq. Contamination; Casts Negative LPF (Negative); Crystals Negative HPF (Negative); Epithelial Cells Many HPF (Negative); Mucus Negative (Negative); RBC 0-2 HPF (0-2)
[2020-06-24 16:57] LABS: ALT 21 U/L (14-59); AST 14 U/L (15-37); Albumin 3.2 g/dL (3.4-5.0); Alkaline Phosphatase 97 U/L (46-116); Anion Gap 7.6 mmol/L (3-11); BUN 56 mg/dL (7-18); Bilirubin, Total 0.3 mg/dL (0.2-1.0); CO2 23.4 mmol/L (21.0-32.0); CREATININE 2.09 mg/dL (0.55-1.02); Chloride 102 mmol/L (98-107); Estimated GFR 24.16 (mL/min/1.73m2); Glucose 215 mg/dL (74-106); Sodium 133 mmol/L (136-145); Total Protein 7.1 g/dL (6.4-8.2)
[2020-06-24] MEDS: Normal Saline 1,000 ML 1000 ML IV (17:10)
[2020-06-24 17:32] LABS: Magnesium 1.5 mg/dL (1.8-2.4)
[2020-06-24] MEDS: MAGNESIUM SULFATE 1 GM/100 ML BAG IVPB (17:44)
[2020-06-24 17:45] LABS: Troponin I < 0.05 ng/mL (<0.06)
[2020-06-24 18:06] LABS: TSH (W/Ref FT4) 1.49 uIU/mL (0.36-3.74)
[2020-06-24] MEDS: Ciprofloxacin 250 MG TAB PO (18:09)
--- NOTE | 2020-06-24 18:17 | NUR.NOTE ---
Nursing Note: Referral given to Care Management to speak with patient about her needs. Vicky Pereira
[2020-06-24 20:12] LABS: Troponin I < 0.05 ng/mL (<0.06)
--- NOTE | 2020-07-04 15:25 | PDOC.ERCMPRO ---
- If Service Date Differs Date of service: 07/04/20 Time of Service: 15:26 Care Management Progress Note At the request of ED provider and after speaking with patient on the telephone, CM coordinates a referral to [facility] for RN, PT, OT, and MATHEMATICIAN in-home services.
== END 2020-06-24 21:05 | disposition home or self-care (01) ==
PROVIDERS: Emergency Provider Physician Assistant; PCP Nurse Practitioner Family
DX: M53.1 Cervicobrachial syndrome (principal); N39.0 Urinary tract infection, site not specified; R00.0 Tachycardia, unspecified; E11.22 Type 2 diabetes mellitus with diabetic chronic kidney disease; Z79.4 Long term (current) use of insulin; N18.30 Chronic kidney disease, stage 3 unspecified; I12.9 Hypertensive chronic kidney disease with stage 1 through stage 4 chronic kidney disease, or unspecified chronic kidney disease; J44.9 Chronic obstructive pulmonary disease, unspecified; Z87.891 Personal history of nicotine dependence
CPT/HCPCS: 80053; 93005; 96361; 96365; 99284; 81003; 81015; 83735; 84443; 84484; 85025; 93010; J3475

== ENCOUNTER 2020-07-16 22:18 | Observation (INO) | payer MEDICARE, MEDICAID, SELFPAY ==
--- NOTE | 2020-07-16 22:00 | RT.EKG_ITS ---
APPROVED REPORT Exam: Resting ECG Patient Location: E HR:108 bpm ECG Measurements Heart Rate 108 AXIS MT 163 P 55 QRSd 73 QRS -10 QT 320 T 58 QTc 429 Conclusion Sinus tachycardia...rate> 99 Low voltage, extremity leads...all extremity leads <0.5mV
[2020-07-16 22:18] VITALS: BP 138/51; PULSE 116; RESP 15; O2SAT 100
[2020-07-16 22:25] VITALS: BP 138/51; PULSE 106; RESP 15; O2SAT 100
--- NOTE | 2020-07-16 22:28 | ED.GENADUL_ITS ---
Discharge Plan Disposition Patient Disposition: [facility] INPATIENT Condition: Stable Discharge Details Chief Complaint: Chest Pain Clinical Impression: Chest pain Primary Care Provider: Maylin Garcia ED Provider: Branden Sequeira [place] Meds and New Rx's Prescriptions: No Action nystatin 100,000 unit/mL Suspension 5 ml PO QID PRN PRNRF: 0 Narcan 4 mg/actuation [place],Non-Aerosol 4 mg INTRANASAL PRN PRNRF: 0 (DME) rolling walker with seat Qty: 1 RF: 0 zolpidem 10 MG tablet 10 mg PO HS PRNRF: 0 nitroglycerin [Nitrostat] 0.4 MG tablet, sublingual 0.4 mg Sublingual PRN PRNRF: 0 insulin aspart U-100 [Novolog Flexpen U-100 Insulin] 300 UNITS/3 ML insulin pen 0 units Sub-Q 0800,1200,1700 Qty: 1 RF: 1 cyclobenzaprine 10 mg tablet 10 mg PO Q8H PRN PRNRF: 0 atorvastatin 40 mg tablet 40 mg PO DAILY RF: 0 prednisone 10 mg tablet 10 mg PO DAILY RF: 0 cetirizine 10 mg tablet 10 mg PO DAILY RF: 0 hydrocodone-acetaminophen 5-325 mg tablet 1 tab PO Q8H PRN PRNRF: 0 cyanocobalamin (vitamin B-12) [Vitamin B-12] 1,000 mcg tablet 1,000 mcg PO DAILY RF: 0 aspirin 81 mg tablet,delayed release (DR/EC) 81 mg PO DAILY RF: 0 bupropion HCl 100 mg tablet sustained-release 12 hr 100 mg PO DAILY RF: 0 magnesium oxide 400 mg (241.3 mg magnesium) tablet 400 mg PO BID RF: 0 lorazepam 0.5 mg tablet 0.5 mg PO PRN PRNRF: 0 lisinopril 5 mg tablet 5 mg PO DAILY RF: 0 pyridoxine (vitamin B6) 100 mg tablet 100 mg PO DAILY RF: 0 fluticasone propionate 50 mcg/actuation spray,suspension 1 spray INTRANASAL DAILY RF: 0 duloxetine 30 mg capsule,delayed release(DR/EC) 30 mg PO DAILY RF: 0 duloxetine 60 mg capsule,delayed release(DR/EC) 60 mg PO DAILY RF: 0 Basaglar KwikPen U-100 Insulin 100 unit/mL (3 mL) insulin pen 50 unit SUBCUT DAILY RF: 0 Dexilant 60 mg capsule,biphase delayed releas 60 mg PO DAILY RF: 0 Flovent HFA 110 mcg/actuation Hfa Aerosol Inhaler 1 puff INHALATION BID PRNRF: 0 docusate sodium 250 mg Capsule 250 mg PO DAILY RF: 0 Medical Decision Making 60 yo female with hx of cad s/p stenting in the past, former smoker, DM, HTN, ckd, copd, comes in after she was laying in bed using her cell phone when she started to have tightness in the chest radiating to the right jaw. Denies vomit but did feel she had diaphoresis. Did take a nitro with some relief of pain, pain returned with EMS and now she states she feels improved. No recent fevers, cough, travel, and denies any vision changes or headaches. Has no calf pain, no pleuritic chest pain, soft nontedner abdomen, normal neurovascular exam. no tearing back pain. Given her history and symptoms suspect angina, unstable angina or nstemi, will obtain ecg and troponin. She has no tearing back pain and normal neurovascular exam so doubt dissection. Normal lung sounds and no fever/cough so doubt ptx or pna. No pleuritic pain, hypoxia or evidence of dvt so doubt PE labs unremarkable as is xray. She did have a dose of fentanyl as she had some recurrence of mild chest tightness with unchanged ekg with resolution of the tightness but did feel lightheaded, HD stable. Given risk factors feel she should be observed overnight, spoke with Dr. Johnson who accepts for admission Differential Diagnosis Differential Diagnosis: angina, unstable angina, nstemi Medical Records Medical records reviewed: Yes I reviewed the patient's medical records. Imaging Data Radiologic Study: Attestation: I personally reviewed and interpreted this imaging study as follows: Imaging: X-Ray Radiologist's impression: no acute findings Lab Data Lab results reviewed: Yes I reviewed the patient's lab results. ECG Data Attestation: I personally reviewed and interpreted this ECG (s) as follows: Prior ECG tracings: not available for review Interpretation: sinus tachycardia, rate of 108, pr 163, qtc 429 2nd ekg shows HR 99 pr 170, qtc [address] t wave ischemic changes HPI General Mode of arrival: EMS . Date/Time Provider Initiated Documentation: 07/16/20 22:28 . Limitations to Documentation: no limitations . Information obtained by: patient . History of Present Illness 60 year old F presents to the emergency department with the chief complaint of chest pain, described as moderate, Patient started experiencing this hour(s) (2) and it has been intermittent. No relieving factors improve symptom(s), No exac erbating factors reported . Related Data Home Medications Medication Instructions Recorded Confirmed zolpidem 10 mg PO HS PRN 12/19/15 07/16/20 nitroglycerin [Nitrostat] 0.4 mg SUBLINGUAL PRN PRN 06/01/17 07/16/20 insulin aspart U-100 [Novolog 0 units SUB-Q 0800,1200,1700 #1 ea 06/04/17 07/16/20 Flexpen U-100 Insulin] Narcan 4 mg INTRANASAL PRN PRN 09/10/19 07/16/20 nystatin 5 ml PO QID PRN PRN 09/10/19 07/16/20 rolling walker with seat #1 ea 01/12/20 01/12/20 Basaglar KwikPen U-100 Insulin 50 unit SUBCUT DAILY 06/24/20 07/16/20 Dexilant 60 mg PO DAILY 06/24/20 07/16/20 Flovent HFA 1 puff INHALATION BID PRN 06/24/20 07/16/20 aspirin 81 mg PO DAILY 06/24/20 07/16/20 atorvastatin 40 mg PO DAILY 06/24/20 07/16/20 bupropion HCl 100 mg PO DAILY 06/24/20 07/16/20 cetirizine 10 mg PO DAILY 06/24/20 07/16/20 cyanocobalamin (vitamin B-12) 1,000 mcg PO DAILY 06/24/20 07/16/20 [Vitamin B-12] cyclobenzaprine 10 mg PO Q8H PRN PRN 06/24/20 07/16/20 duloxetine 30 mg PO DAILY 06/24/20 07/16/20 duloxetine 60 mg PO DAILY 06/24/20 07/16/20 fluticasone propionate 1 spray INTRANASAL DAILY 06/24/20 07/16/20 hydrocodone-acetaminophen 1 tab PO Q8H PRN PRN 06/24/20 07/16/20 lisinopril 5 mg PO DAILY 06/24/20 07/16/20 lorazepam 0.5 mg PO PRN PRN 06/24/20 07/16/20 magnesium oxide 400 mg PO BID 06/24/20 07/16/20 prednisone 10 mg PO DAILY 06/24/20 07/16/20 pyridoxine (vitamin B6) 100 mg PO DAILY 06/24/20 07/16/20 docusate sodium 250 mg PO DAILY 07/16/20 07/16/20 Previous Rx's Medication Instructions Recorded insulin aspart U-100 [Novolog 0 units SUB-Q 0800,1200,1700 #1 ea 06/04/17 Flexpen U-100 Insulin] rolling walker with seat #1 ea 01/12/20 Allergies Allergy/AdvReac Type Severity Reaction Status Date / Time quetiapine [From Seroquel] Allergy Intermediate Unverified 07/16/20 22:27 amoxicillin [From Augmentin] Allergy Unverified 07/16/20 22:27 clavulanic acid Allergy Unverified 07/16/20 22:27 [From Augmentin] Penicillins Allergy Unverified 07/16/20 22:27 Sulfa (Sulfonamide Allergy Unverified 07/16/20 22:27 Antibiotics) exenatide [From [place]] AdvReac Intermediate diarrhea Unverified 07/16/20 22:27 metformin AdvReac Intermediate diarrhea Unverified 07/16/20 22:27 amitriptyline AdvReac made my Unverified 07/16/20 22:27 face go numb amoxicillin trihydrate AdvReac acute Unverified 07/16/20 22:27 [From Augmentin] kidney failure NSAIDS (Non-Steroidal AdvReac stage III Unverified 07/16/20 22:27 Anti-Inflamma kidney disease potassium clavulanate AdvReac acute Unverified 07/16/20 22:27 [From Augmentin] kidney failure General Stated Complaint: Chest Pain SADE: 2 Review of Systems All systems reviewed & are unremarkable except as noted in HPI and below Constitutional Constitutional: Denies chills, Denies fever(s) and Denies weakness Cardiovascular Cardiovascular: Denies dyspnea Respiratory Respiratory: Denies cough and Denies dyspnea Gastrointestinal Gastrointestinal: Denies abdominal pain, Denies nausea and Denies vomiting Genitourinary Genitourinary: Denies dysuria Musculoskeletal Musculoskeletal: Denies joint swelling Neurologic Neurologic: Denies weakness [facility] Medical History Acute exacerbation of chronic obstructive airways disease Acute sinusitis Allergic rhinitis Anemia Benign neoplasm of peripheral 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 No complications. Cholecystectomy Coronary Stent H/O lumpectomy Hx of tubal ligation Family History Brother Diabetes Hypertension Heart disease Stroke Obesity Chronic headaches Arthritis Brother Arthritis Chronic headaches Diabetes Heart disease Hypertension Obesity Stroke Father Heart disease Stroke Hypertension Chronic headaches Sister Diabetes Obesity Osteoporosis Daughter Migraine Obesity Brother Arthritis Diabetes Chronic headaches Hypertension Obesity Stroke Mother Asthma Arthritis Diabetes Obesity Stroke Glaucoma Social History Smoking/Tobacco Use Status: Former Tobacco Use Quit Date: 04/13/19 Pack-years: 45 Tobacco: How many years used: 45 Quit status: considering quitting Smoking risk assessment performed?: Yes Alcohol Intake: never Drug use: Never Substance use type: does not use Details: Quit smoking 6 months ago. Household members: friend(s) Housing: apartment Number of Children: 3 number of grandchildren: 14 current occupation: none What is your relationship status?: Panel score (0-1 are the most socially isolated patients): 0 What type of physical activity do you participate in: none Do you feel safe at home: Yes Do you feel safe in your relationship?: Yes Exam Const General: no acute distress Orientation: alert HENMT Head: normal to inspection Ears: external ears normal General nose exam: external nose normal Mouth: moist mucous membranes Eyes General: appearance normal, both eyes and all related structures Neck Neck: normal visual inspection Resp Effort & Inspection: normal respiratory effort and able to speak in complete sentences Cardio Rate: regular rate GI Palpation: soft Skin General skin exam: no rashes or lesions noted Neuro General: patient alert and patient oriented x3 Extrem General: normal to inspection Psych Mental Status: mental status grossly normal Course Vital Signs Vital signs: Vital Signs Pulse 116 H 07/16/20 22:18 Respiratory Rate 15 07/16/20 22:18 Blood Pressure 138/51 L 07/16/20 22:18 Pulse Oximetry 100 07/16/20 22:18 Pulse 116 H 07/16/20 22:18 Respiratory Rate 15 07/16/20 22:18 Blood Pressure 138/51 L 07/16/20 22:18 Blood Pressure Position Sitting 07/16/20 22:18 Pulse Oximetry 100 07/16/20 22:18 Oxygen Delivery Method Room Air 07/16/20 22:18 Oxygen Flow Rate 0 07/16/20 22:18 Pain Level 6 07/16/20 22:18
--- NOTE | 2020-07-16 22:30 | DI.RAD_ITS ---
EXAM: XR PORTABLE CHEST AP CLINICAL HISTORY: chest pain TECHNIQUE: 2D digital imaging was performed. COMPARISON: CR XR PORTABLE CHEST AP from 01/16/2019 FINDINGS: LUNGS: Lungs are suboptimally inflated but clear. No pleural abnormality seen. HEART: Normal size. MEDIASTINUM: Aorta mildly tortuous. Leads overlie the chest. IMPRESSION: No acute pulmonary findings. DATA REPOSITORY: RADIATION DOSE DELIVERED:
[2020-07-16] MEDS: Aspirin 81 MG CHEW 243 MG CH (22:44)
[2020-07-16 22:46] LABS: Abs Immature Grans 0.08 10^3/uL (0.0-0.06); Absolute Basophil Count 0.06 10^3/uL (0.0-0.2); Absolute Eosinophil Count 0.12 10^3/uL (0.0-0.7); Absolute Lymphocyte Count 1.09 10^3/uL (1.2-3.4); Absolute Monocyte Count 0.32 10^3/uL (0.1-0.8); Absolute Neutrophil Count 8.97 10^3/uL (1.2-6.7); Basophils % 0.6; Eosinophils % 1.1; HCT 34.6 % (36.0-46.0); HGB 11.5 g/dL (11.2-15.7); Immature Grans % 0.8; Lymphocytes % 10.2; MCH 30.3 pg (27.0-33.0); MCHC 33.2 % (32.0-36.0); MCV 91.3 fL (80-95); MPV 9.6 fL (8.0-11.0); Neutrophils % 84.3; Nucleated RBC 0 %; Platelet Count 270 10^3/uL (130-400); RBC 3.79 10^6/uL (3.93-5.22); RDW 13.1 % (11.7-14.6); RDW-SD 43.3 fL; WBC 10.64 10^3/uL (4.4-10.8)
[2020-07-16 23:00] VITALS: BP 149/82; PULSE 100; PULSE 102; RESP 15; O2SAT 96
--- NOTE | 2020-07-16 23:03 | DI.VRAD_ITS ---
PROCEDURE INFORMATION: Exam: XR Chest, 1 View Exam date and time: 07/16/2020 10:36 PM Age: 60 years old Clinical indication: Chest pain; Type not specified TECHNIQUE: Imaging protocol: XR of the chest Views: 1 view. COMPARISON: SC XR PORTABLE CHEST AP 01/16/2019 12:51 PM FINDINGS: Lungs: The lungs are clear. There is no pulmonary vascular congestion. Pleural space: Unremarkable. No pleural effusion. No pneumothorax. Heart/Mediastinum: The cardiomediastinal silhouette is within normal limits. Bones/joints: Unremarkable. IMPRESSION: No active cardiopulmonary disease identified. Unchanged exam. Dictated and Authenticated by: Jacob Cain MD. Ordering:DORIAN Otero MD
[2020-07-16 23:06] LABS: ALT 27 U/L (14-59); AST 14 U/L (15-37); Albumin 3.1 g/dL (3.4-5.0); Alkaline Phosphatase 115 U/L (46-116); Anion Gap 6.3 mmol/L (3-11); BUN 41 mg/dL (7-18); Bilirubin, Total 0.3 mg/dL (0.2-1.0); CO2 26.7 mmol/L (21.0-32.0); CREATININE 1.74 mg/dL (0.55-1.02); Calcium 8.8 mg/dL (8.5-10.1); Chloride 105 mmol/L (98-107); Estimated GFR 29.85 (mL/min/1.73m2); Glucose 231 mg/dL (74-106); Lipase 86 U/L (73-393); Magnesium 1.3 mg/dL (1.8-2.4); NT-proBNP 348 pg/mL (<300); Potassium 4.8 mmol/L (3.5-5.1); Sodium 138 mmol/L (136-145); Total Protein 7.2 g/dL (6.4-8.2)
[2020-07-16 23:07] LABS: INR 0.9 (0.9-1.1); PTT Activated 22.3 sec (21.0-27.5); Prothrombin Time 9.4 sec (9.3-11.0)
[2020-07-16 23:15] LABS: Troponin I < 0.05 ng/mL (<0.06)
[2020-07-16 23:30] VITALS: BP 153/81; PULSE 98; PULSE 99; RESP 0; O2SAT 96
[2020-07-16] MEDS: fentaNYL 100 MCG/2 ML VIAL IVP (23:44)
--- NOTE | 2020-07-16 23:45 | RT.EKG_ITS ---
APPROVED REPORT Exam: Resting ECG Patient Location: E HR:99 bpm ECG Measurements Heart Rate 99 AXIS VA 170 P 34 QRSd 75 QRS -14 QT 333 T 47 QTc 427 Conclusion Sinus rhythm...normal P axis, V-rate 60- 99 Low voltage, precordial leads...precordial leads <1.0mV
[2020-07-16 23:52] VITALS: BP 153/78; PULSE 97; PULSE 99; RESP 13; O2SAT 96
[2020-07-17] VITALS (9 sets, daily range): BP systolic 120–154; BP diastolic 76–87; PULSE 86–103; RESP 12–20; TEMP 36.1–36.7; O2SAT 93–97
--- NOTE | 2020-07-17 00:09 | NUR.NOTE ---
Nursing Note: Daughter notified that patient will be admitted to hospital. Report given to Karma DE LOS SANTOS to assume care of patient at this time.
[2020-07-17 01:35] LABS: Troponin I < 0.05 ng/mL (<0.06)
[2020-07-17] MEDS: Acetaminophen 325 MG TAB 650 MG PO (01:54)
[2020-07-17] MEDS: fentaNYL 100 MCG/2 ML VIAL 50 MCG IVP ×2 (03:51→05:22)
[2020-07-17] MEDS: Normal Saline Flush 10 ML SYR IVP ×3 (03:52→07:57)
--- NOTE | 2020-07-17 06:17 | W.PM.HP.N ---
Date of service: 07/17/20 Time of Service: 06:17 Assessment and Plan Assessment and plan (1) Coronary artery disease: Status: Chronic Assessment and plan: Known CAD with stent placed in 2005. Exercise stress test in 05/2019; documentation in chart but no interpretation in chart. Troponin neg x 3. No EKG changes. ASA daily. Not on a BB. Statin daily. NM stress testing ordered. Qualifiers: Coronary Disease-Associated Artery/Lesion type: [place] artery [place] vs. transplanted heart: [place] heart Associated angina: with unspecified angina Qualified Code(s): I25.119 - Atherosclerotic heart disease of [place] coronary artery with unspecified angina pectoris (2) Hypertension: Status: Chronic Assessment and plan: Cont Lisinopril and monitor. Qualifiers: Hypertension type: essential hypertension Qualified Code(s): I10 - Essential (primary) hypertension (3) COPD (chronic obstructive pulmonary disease): Status: Chronic Assessment and plan: No current exacerbation Cont Inhaled steroid / or nebulized substitution. PRN albuterol per neb. Prednisone 10mg daily. (4) Mixed anxiety depressive disorder: Status: Acute Assessment and plan: Cont home meds: Duloxetine, bupropion, prn lorazepam (5) Type 2 diabetes mellitus: Status: Acute Assessment and plan: Cont Glargine daily. AC sliding scale correction dose. Diabetic diet. History of Present Illness History of Present Illness Chief Complaint: Chest pain Narrative: This is a 60 yo female with a PMH of CAD/stent placed in 2005, DM2/insulin requiring, HTN, COPD, CKD stage 3, depression/PTSD, fibromyalgia. She presented to the ED with chest tightness that radiated to the R jaw while she was lying down using her cell phone. + diaphoreses. No N/V, palpitations. She took a SL nitroglycerine and noted some relief. The chest pain returned while with EMS. No SOA/cough/F/C. In the ED her troponin levels were negative x 2. EKG x 2 with sinus tachycardia / no ST, T-wave abnormalities. CXR normal. WBC count normal. BP 138/51, P 116, RA O2 saturation of 100%. Given her PMH / risk factors, she was admitted for a 3rd troponin, observation on telemetry and a NM stress test. Review of Systems All systems reviewed & are unremarkable except as noted in HPI and below PFSH Medical History Acute exacerbation of chronic obstructive airways disease Acute sinusitis Allergic rhinitis Anemia Benign neoplasm of peripheral 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 No complications. Cholecystectomy Coronary Stent H/O lumpectomy Hx of tubal ligation Family History Brother Diabetes Hypertension Heart disease Stroke Obesity Chronic headaches Arthritis Brother Arthritis Chronic headaches Diabetes Heart disease Hypertension Obesity Stroke Father Heart disease Stroke Hypertension Chronic headaches Sister Diabetes Obesity Osteoporosis Daughter Migraine Obesity Brother Arthritis Diabetes Chronic headaches Hypertension Obesity Stroke Mother Asthma Arthritis Diabetes Obesity Stroke Glaucoma Social History Smoking/Tobacco Use Status: Former Tobacco Use Quit Date: 04/13/19 Pack-years: 45 Tobacco: How many years used: 45 Quit status: considering quitting Smoking risk assessment performed?: Yes Alcohol Intake: never Drug use: Never Substance use type: does not use Details: Quit smoking 6 months ago. Household members: friend(s) Housing: apartment Number of Children: 3 number of grandchildren: 14 current occupation: none What is your relationship status?: Panel score (0-1 are the most socially isolated patients): 0 What type of physical activity do you participate in: none Do you feel safe at home: Yes Do you feel safe in your relationship?: Yes Meds Home Medications and Allergies Home Medications Medication Instructions Recorded Confirmed Type zolpidem 10 mg PO HS PRN 12/19/15 07/16/20 History nitroglycerin [Nitrostat] 0.4 mg SUBLINGUAL PRN PRN 06/01/17 07/16/20 History insulin aspart U-100 [Novolog 0 units SUB-Q 0800,1200,1700 #1 ea 06/04/17 07/16/20 Rx Flexpen U-100 Insulin] Narcan 4 mg INTRANASAL PRN PRN 09/10/19 07/16/20 History nystatin 5 ml PO QID PRN PRN 09/10/19 07/16/20 History rolling walker with seat #1 ea 01/12/20 01/12/20 Rx Basaglar KwikPen U-100 Insulin 50 unit SUBCUT DAILY 06/24/20 07/16/20 History Dexilant 60 mg PO DAILY 06/24/20 07/16/20 History Flovent HFA 1 puff INHALATION BID PRN 06/24/20 07/16/20 History aspirin 81 mg PO DAILY 06/24/20 07/16/20 History atorvastatin 40 mg PO DAILY 06/24/20 07/16/20 History bupropion HCl 100 mg PO DAILY 06/24/20 07/16/20 History cetirizine 10 mg PO DAILY 06/24/20 07/16/20 History cyanocobalamin (vitamin B-12) 1,000 mcg PO DAILY 06/24/20 07/16/20 History [Vitamin B-12] cyclobenzaprine 10 mg PO Q8H PRN PRN 06/24/20 07/16/20 History duloxetine 30 mg PO DAILY 06/24/20 07/16/20 History duloxetine 60 mg PO DAILY 06/24/20 07/16/20 History fluticasone propionate 1 spray INTRANASAL DAILY 06/24/20 07/16/20 History hydrocodone-acetaminophen 1 tab PO Q8H PRN PRN 06/24/20 07/16/20 History lisinopril 5 mg PO DAILY 06/24/20 07/16/20 History lorazepam 0.5 mg PO PRN PRN 06/24/20 07/16/20 History magnesium oxide 400 mg PO BID 06/24/20 07/16/20 History prednisone 10 mg PO DAILY 06/24/20 07/16/20 History pyridoxine (vitamin B6) 100 mg PO DAILY 06/24/20 07/16/20 History docusate sodium 250 mg PO DAILY 07/16/20 07/16/20 History Allergies Allergy/AdvReac Type Severity Reaction Status Date / Time quetiapine [From Seroquel] Allergy Intermediate Unverified 07/16/20 22:27 amoxicillin [From Augmentin] Allergy Unverified 07/16/20 22:27 clavulanic acid Allergy Unverified 07/16/20 22:27 [From Augmentin] Penicillins Allergy Unverified 07/16/20 22:27 Sulfa (Sulfonamide Allergy Unverified 07/16/20 22:27 Antibiotics) exenatide [From [place]] AdvReac Intermediate diarrhea Unverified 07/16/20 22:27 metformin AdvReac Intermediate diarrhea Unverified 07/16/20 22:27 amitriptyline AdvReac made my Unverified 07/16/20 22:27 face go numb amoxicillin trihydrate AdvReac acute Unverified 07/16/20 22:27 [From Augmentin] kidney failure NSAIDS (Non-Steroidal AdvReac stage III Unverified 07/16/20 22:27 Anti-Inflamma kidney disease potassium clavulanate AdvReac acute Unverified 07/16/20 22:27 [From Augmentin] kidney failure Exam Const General: cooperative and no acute distress Nutritional Appearance: obese Orientation: alert and oriented x3 Eyes Sclera: sclerae normal Pupils: PERRL Neck Neck: full ROM and no JVD Resp Effort & Inspection: normal respiratory effort Auscultation: clear to auscultation bilaterally Cardio Rate: regular rate Rhythm: regular rhythm Heart Sounds: S1 normal and S2 normal GI Inspection: obesity Palpation: soft and nontender Auscultation: normal bowel sounds Extrem General: no pedal edema and no calf tenderness Psych Appearance: grossly normal Mental Status: mental status grossly normal Speech and Movement: speech and movement normal Affect: normal affect Attitude: cooperative Results Labs Result diagrams: 07/16/20 22:30 07/16/20 22:30 Labs: Laboratory Results - last 24 hr 07/16/20 07/16/20 07/16/20 22:30 22:30 22:30 WBC 10.64 RBC 3.79 L Hgb 11.5 Hct 34.6 L MCV 91.3 MCH 30.3 MCHC 33.2 RDW 13.1 Plt Count 270 MPV 9.6 Immature Gran % 0.8 Neutrophils % 84.3 Lymphocytes % 10.2 Monocytes % 3.0 Eosinophils % 1.1 Basophils % 0.6 Nucleated RBC % 0 Absolute Neutrophils 8.97 H Absolute Lymphocytes 1.09 L Absolute Monocytes 0.32 Absolute Eosinophils 0.12 Absolute Basophils 0.06 PT 9.4 INR 0.9 APTT 22.3 Sodium 138 Potassium 4.8 Chloride 105 Carbon Dioxide 26.7 Anion Gap 6.3 BUN 41 H Creatinine 1.74 H Estimated GFR/1.73 m2 29.85 Glucose 231 H Calcium 8.8 Magnesium 1.3 L Total Bilirubin 0.3 AST 14 L ALT 27 Alkaline Phosphatase 115 Troponin I < 0.05 NT-Pro-B Natriuret Pep 348 H Total Protein 7.2 Albumin 3.1 L Lipase 86 07/17/20 01:14 WBC RBC Hgb Hct MCV MCH MCHC RDW Plt Count MPV Immature Gran % Neutrophils % Lymphocytes % Monocytes % Eosinophils % Basophils % Nucleated RBC % Absolute Neutrophils Absolute Lymphocytes Absolute Monocytes Absolute Eosinophils Absolute Basophils PT INR APTT Sodium Potassium Chloride Carbon Dioxide Anion Gap BUN Creatinine Estimated GFR/1.73 m2 Glucose Calcium Magnesium Total Bilirubin AST ALT Alkaline Phosphatase Troponin I < 0.05 NT-Pro-B Natriuret Pep Total Protein Albumin Lipase Last Vital Signs Temp 36.5 C 07/17/20 03:44 Pulse 99 H 07/17/20 03:44 Resp 19 07/17/20 03:44 BP 121/80 07/17/20 03:44 Pulse Ox 97 07/17/20 03:44 COVID-19 Screening Have you, or household traveled for leisure in last 14 days?: No Had IN PERSON contact w/suspected or confirmed C-19 person: No
[2020-07-17] MEDS: DEXTROSE 5%-0.9% SALINE 1,000 ML 100 ML IV (07:57)
[2020-07-17 08:41] LABS: Troponin I < 0.05 ng/mL (<0.06)
--- NOTE | 2020-07-17 08:45 | DI.NM_ITS ---
APPROVED REPORT Exam: Pharmacologic Patient Location: In-Patient Room/Bed: 230 Stress Nurse: Irina Hale RN BMI: 45.34 Baseline Rhythm: Sinus Rhythm Indications: CAD. Sternal 7/10 chest pressure radiating to jaw and right arm, occuring while lying do wn. Jaw pain resolved with SL nitroglycerin. Medical History Medical History: CAD (stent 2005), HTN, HLD, COPD, DM II, CKD Stage III, Depression/PTSD, Fibromyalgi a, Proliferative retinopathy d/t DM, Hypomagnesemia. Cardiac Medications: SL nitroglycerin, Insulin aspart, Basaglar KwikPen, Aspirin, Atorvastatin, Lisin opril, Magnesium Oxide. , Allergies: Quetiapine, Amoxicillin, Clavulanic acid, Sulfa antibiotics, Exenatide, Metformin, Amitrip tyline, NSAIDS, Potassium clavulanate. Cardiac Risk Factors: FHX of CAD, HTN, Hyperlipidemia, Diabetes (insulin), Smoking (former, quit 2018 ), , CVDCOPD Previous Cardiac Procedures: PCI w/ stent placement 2005 Pretest Chest Pain Characteristics: None. Exercise History: Sedentary Physical Disabilities: Legs, Generalized weakness. Lung Sounds: Diminished. Heart Sounds: Regular Stress Test Details Test: Pharmacologic stress testing performed using 0.4 mg of regadenoson per 5 mL given IV over 10 s econds. Reason for pharmacologic stress test: physical limitation. Nuclear Acquisition: Rest Tc-99m/Stress Tc-99m 1 day Rest Isotope: Tc-99m Sestamibi. Dose: 12.3 Date: 07/17/2020 Injection Time: 0845 Stress Isotope: Tc-99m Sestamibi. Dose: 37 Date: 07/17/2020 Injection Time: 1035 HR Resting HR Supine: 90 bpm Max Heart Rate (APMHR): 160.908812 bpm Target HR (85% APMHR): 136.213546 bpm Max HR Achieved: 108 bpm % of APMHR: 67.50 Recovery HR: 99 bpm BP Resting BP Supine: 134/78 mmHg Max BP: 134/78 mmHg Recovery BP: 132/80 mmHg ECG Resting ECG: Sinus Rhythm Ectopy: None. Stress ECG: Sinus Tachycardia ST Change: No significant ST segment changes noted. Arrhythmia: None Recovery ECG: Sinus Rhythm Recovery ST Change: No significant ST segment changes noted. Recovery Arrhythmia: None Stress ECG Conclusion 1. This was a pharmacologic stress test 2. Resting EKG was normal 3. Patient received regadenoson. Peak heart rate was 67% of predicted 4. Electrocardiographically the test was nondiagnostic due to inadequate heart rate Stress Test Summary STAGE HR BP Symptoms NOTES Supine 90 134/78 1 min post Lexiscan injection 104 130/80 SOB 3 min post Lexiscan injection 105 126/78 Right arm pain. SOB resolved. 6 min post Lexiscan injection 99 132/80 Right arm pain resolved. MPI Conclusion Normal myocardial perfusion without evidence of ischemia or prior infarction Radiologist Interpretation Radiologist agrees with General Purchasing Agent's Interpretation. Radiologist Interpretation by: Nata Ovalle MD Interpretation Date/Time: 07/28/2020 12:24:16
[2020-07-17 08:59] LABS: Abs Immature Grans 0.07 10^3/uL (0.0-0.06); Absolute Basophil Count 0.04 10^3/uL (0.0-0.2); Absolute Eosinophil Count 0.13 10^3/uL (0.0-0.7); Basophils % 0.5; Eosinophils % 1.5; HGB 10.2 g/dL (11.2-15.7); Immature Grans % 0.8; Lymphocytes % 32.4; MCH 30.9 pg (27.0-33.0); MCV 90.9 fL (80-95); MPV 9.5 fL (8.0-11.0); Monocytes % 5.8; Nucleated RBC 0 %; Platelet Count 238 10^3/uL (130-400); RDW 13.1 % (11.7-14.6); RDW-SD 43.1 fL; WBC 8.64 10^3/uL (4.4-10.8)
[2020-07-17 09:09] LABS: Magnesium 1.5 mg/dL (1.8-2.4)
[2020-07-17 09:10] LABS: Anion Gap 8.1 mmol/L (3-11); BUN 38 mg/dL (7-18); CO2 25.9 mmol/L (21.0-32.0); CREATININE 1.59 mg/dL (0.55-1.02); Calcium 8.6 mg/dL (8.5-10.1); Chloride 108 mmol/L (98-107); Estimated GFR 33.12 (mL/min/1.73m2); Glucose 91 mg/dL (74-106); Potassium 4.2 mmol/L (3.5-5.1); Sodium 142 mmol/L (136-145)
--- NOTE | 2020-07-17 09:53 | INITIAL_ITS ---
- If Service Date Differs Date of service: 07/17/20 Time of Service: 15:58 Care Management Initial Assess REASON FOR HOSPITALIZATION:: Chest Pain PAST MEDICAL HISTORY/PAST SURGICAL HISTORY:: CAD/stent placed in 2005, DM2/insulin requiring, HTN, COPD, CKD stage 3, depression/PTSD, fibromyalgia. She presented to the ED with chest tightness that radiated to the R jaw while she was lying down using her cell phone. + diaphoreses. No N/V, palpitations. She took a SL nitroglycerine and noted some relief. The chest pain returned while with EMS. No SOA/cough/F/C. In the ED her troponin levels were negative x 2. EKG x 2 with sinus tachycardia / no ST, T-wave abnormalities. CXR normal. WBC count normal. BP 138/51, P 116, RA O2 saturation of 100%. Given her PMH / risk factors, she was admitted for a 3rd troponin, observation on telemetry and a NM stress test. 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 system unspecified, Cataracts, bilateral, Chronic renal impairment associated with type 2 diabetes mellitus, CKD stage 3 due to type 2 diabetes mellitus, Colon polyp, Coronary artery disease, Depression, Diabetes pt reports elevated HgbA1c.,Diabetes mellitus with neurologic complication, with long-term current use ofinsulin, Diarrhea, Disorder of both eyes, Dupuytren's disease of palm, Dysrhythmia, Epigastric pain, Fibromyalgia, Hyperlipidemia, Hypertension, Hypomagnesemia, Insomnia, Low back pain, Mental disorder, 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 No complications., Cholecystectomy, Coronary Stent, H/O lumpectomy, Hx of tubal ligation PREVIOUS FUNCTIONAL STATUS/SOCIAL/FAMILY SUPPORTS:: Nimisha resides at the [facility] in [place], [place], she has a roommate that she reports is very supportive and manages most of the chores. The alf center has a meal site available as well as handicap accessible apartments. Nimisha remains independent at baseline, utilizing a three wheeled walker for ambulation. She reports residing in the basement apartment which is spacious. She has supportive family and friends nearby that support her with transportation. CURRENT FUNCTIONAL STATUS:: Nimisha is up independently with standby assist. CM was able to connect with Nimisha as she was preparing for discharge. She reported declining home health services because she felt there were too many workers accessing her home, which she reports scared her in the setting of Covid. Nimisha reports she is currently working with [facility] for a [facility]A referral to support her obtaining personal care hours for increased support in her home setting. She is hopeful her daughter can be her paid caregiver. CM agreed to outreach to [facility] to see where in the process referral currently stands. Has patient been provided with info about the portal/API?: Yes Did the patient sign up for the portal?: No CODE STATUS:: Full Code INSURANCE COVERAGE / FINANCIAL ISSUES:: MARVA. [facility] CURRENT HOME/COMMUNITY SERVICES/EQUIPMENT:: RN, PT, OT, and COSMETIC MANAGER in-home services. Grab bars, tub seat, hand held shower, hand rails, ramp, elevator, three wheeled rolling walker, meal site. PRIMARY CARE PHYSICIAN:: Maylin Garcia POTENTIAL DISCHARGE NEEDS:: Resume home health services. PATIENT/FAMILY EDUCATION NEEDS:: Review discharge instructions, discuss Ask Me Three. ANTICIPATED BARRIERS TO DISCHARGE:: None identified. TRANSPORTATION:: Via private vehicle. PLAN:: Anticipate Nimisha will return home when ready, per provider. CM notifed [facility] of patient request for paid caregiver support. Nimisha will follow up with her PCP and plan of care as prescribed. She will transport via private vehicle with her roomate.
[2020-07-17] MEDS: Regadenoson 0.4 MG/5 ML SYR IVP (10:24)
[2020-07-17] MEDS: Cetirizine 10 MG TAB PO (11:30)
[2020-07-17] MEDS: Atorvastatin 40 MG TAB PO (11:30)
[2020-07-17] MEDS: DULoxetine 30 MG CAP PO (11:30)
[2020-07-17] MEDS: Aspirin 81 MG CHEW CH (11:30)
[2020-07-17] MEDS: DULoxetine 30 MG CAP 60 MG PO (11:30)
[2020-07-17] MEDS: Docusate Sodium 100 MG CAP PO (11:30)
[2020-07-17] MEDS: buPROPion-CR 100 MG TABCR PO (11:30)
[2020-07-17] MEDS: HYDROcodone 5/Acetaminophen 325 TAB PO (11:30)
[2020-07-17] MEDS: Magnesium Oxide 400 MG TAB PO (11:31)
[2020-07-17] MEDS: Dexlansoprazole 30 MG CAP 60 MG PO (11:31)
[2020-07-17] MEDS: Lisinopril 5 MG TAB PO (11:31)
[2020-07-17] MEDS: predniSONE 10 MG TAB PO (11:31)
[2020-07-17] MEDS: Insulin Glargine 300 UNITS/3 ML PEN 50 UNITS SC (11:34)
[2020-07-17] MEDS: MAGNESIUM SULFATE 4 GM/100 ML BAG IVPB (11:42)
[2020-07-17] MEDS: Insulin Aspart 300 UNITS/3 ML PEN SC (11:42)
--- NOTE | 2020-07-17 14:01 | W.PM.DS.N ---
Date of service: 07/17/20 Time of Service: 14:01 DS: Diagnosis Discharge Diagnosis (1) Coronary artery disease: Start date: 07/17/20 Start time: 14:01 Status: Chronic Asessment and Plan: Negative stress test. Troponins flat NSR on telemetry States pain after eating could be esophageal spasms will given GI cocktail follow up with PCP in 1 week (2) Hypertension: Start date: 07/17/20 Start time: 14:03 Status: Chronic Asessment and Plan: Normotensive on admission (3) COPD (chronic obstructive pulmonary disease): Start date: 07/17/20 Start time: 14:03 Status: Chronic Asessment and Plan: Not exacerbated at this time (4) Mixed anxiety depressive disorder: Start date: 07/17/20 Start time: 14:03 Status: Acute Asessment and Plan: Could be contributing to jaw pain, if tensing at night (5) Type 2 diabetes mellitus: Start date: 07/17/20 Start time: 14:04 Status: Acute Asessment and Plan: Continue outpatient regimen and follow up with PCP above case discussed with Dr. Martines who is in agreement. Discharge Plan Disposition Condition: Stable Discharge Details Reason For Visit: CHEST PAIN Admit Date/Time: 07/17/20 00:09 Admit Provider: Juan Johnson Attending Provider: Juan Johnson Primary Care Provider: Maylin Garcia [facility] Hospital Course: This is a 60 yo female with a PMH of CAD/stent placed in 2005, DM2/insulin requiring, HTN, COPD, CKD stage 3, depression/PTSD, fibromyalgia. She presented to the ED with chest tightness that radiated to the R jaw while she was lying down using her cell phone. + diaphoreses. No N/V, palpitations. She took a SL nitroglycerine and noted some relief. The chest pain returned while with EMS. No SOA/cough/F/C. In the ED her troponin levels were negative x 2. EKG x 2 with sinus tachycardia / no ST, T-wave abnormalities. CXR normal. WBC count normal. BP 138/51, P 116, RA O2 saturation of 100%. Given her PMH / risk factors, she was admitted for a 3rd troponin, observation on telemetry and a NM stress test. Stress test negative Stress Isotope: Tc-99m Sestamibi. Dose: 37 Date: 07/17/2020 Injection Time: 1035 HR Resting HR Supine: 90 bpm Max Heart Rate (APMHR): 160 bpm Target HR (85% APMHR): 136 bpm Max HR Achieved: 108 bpm % of APMHR: 67 Recovery HR: 99 bpm BP Resting BP Supine: 134/78 mmHg Max BP: 134/78 mmHg Recovery BP: 132/80 mmHg ECG Resting ECG: Sinus Rhythm Ectopy: None. Stress ECG: Sinus Tachycardia ST Change: No significant ST segment changes noted. Arrhythmia: None Recovery ECG: Sinus Rhythm Recovery ST Change: No significant ST segment changes noted. Recovery Arrhythmia: None Stress ECG Conclusion 1. This was a pharmacologic stress test 2. Resting EKG was normal 3. Patient received regadenoson. Peak heart rate was 67% of predicted 4. Electrocardiographically the test was nondiagnostic due to inadequate heart rate Stress Test Summary STAGE HR BP Symptoms NOTES Supine 90 134/78 1 min post Lexiscan injection 104 130/80 SOB 3 min post Lexiscan injection 105 126/78 Right arm pain. SOB resolved. 6 min post Lexiscan injection 99 132/80 Right arm pain resolved. MPI Conclusion Normal myocardial perfusion without evidence of ischemia or prior infarction Home Meds and New Rx's Prescriptions: New carbamide peroxide [Debrox] 6.5 % drops 5 drp otic (ear) DAILY 4 Days RF: 0 Continued nystatin 100,000 unit/mL Suspension 5 ml PO QID PRN PRNRF: 0 Narcan 4 mg/actuation Peterson,Non-Aerosol 4 mg INTRANASAL PRN PRNRF: 0 zolpidem 10 MG tablet 10 mg PO HS PRNRF: 0 nitroglycerin [Nitrostat] 0.4 MG tablet, sublingual 0.4 mg Sublingual PRN PRNRF: 0 insulin aspart U-100 [Novolog Flexpen U-100 Insulin] 300 UNITS/3 ML insulin pen 0 units Sub-Q 0800,1200,1700 Qty: 1 RF: 1 cyclobenzaprine 10 mg tablet 10 mg PO Q8H PRN PRNRF: 0 atorvastatin 40 mg tablet 40 mg PO DAILY RF: 0 prednisone 10 mg tablet 10 mg PO DAILY RF: 0 cetirizine 10 mg tablet 10 mg PO DAILY RF: 0 hydrocodone-acetaminophen 5-325 mg tablet 1 tab PO Q8H PRN PRNRF: 0 cyanocobalamin (vitamin B-12) [Vitamin B-12] 1,000 mcg tablet 1,000 mcg PO DAILY RF: 0 aspirin 81 mg tablet,delayed release (DR/EC) 81 mg PO DAILY RF: 0 bupropion HCl 100 mg tablet sustained-release 12 hr 100 mg PO DAILY RF: 0 magnesium oxide 400 mg (241.3 mg magnesium) tablet 400 mg PO BID RF: 0 lorazepam 0.5 mg tablet 0.5 mg PO PRN PRNRF: 0 lisinopril 5 mg tablet 5 mg PO DAILY RF: 0 pyridoxine (vitamin B6) 100 mg tablet 100 mg PO DAILY RF: 0 fluticasone propionate 50 mcg/actuation spray,suspension 1 spray INTRANASAL DAILY RF: 0 duloxetine 30 mg capsule,delayed release(DR/EC) 30 mg PO DAILY RF: 0 duloxetine 60 mg capsule,delayed release(DR/EC) 60 mg PO DAILY RF: 0 Basaglar KwikPen U-100 Insulin 100 unit/mL (3 mL) insulin pen 50 unit SUBCUT DAILY RF: 0 Dexilant 60 mg capsule,biphase delayed releas 60 mg PO DAILY RF: 0 Flovent HFA 110 mcg/actuation Hfa Aerosol Inhaler 1 puff INHALATION BID PRNRF: 0 docusate sodium 250 mg Capsule 250 mg PO DAILY RF: 0 No Action (DME) rolling walker with seat Qty: 1 RF: 0 Discharge Instructions Instructions: Chest Pain (GEN), Temporomandibular Disorder (GEN) Additional Instructions: Take mylanta for post meal chest tighthness Your stress test was negative Follow up with your PCP in 1 week Use Debrox to your ears to help clean the wax which could be contributing to pain. We are unable to visualize the Tympanic Membrane at this time, this could be an ear infection if so treat with tylenol as needed for pain. Activity:: Activity as Tolerated Activity:: Activity as Tolerated Equipment/Supplies:: No Equipment Needed Diet:: Low Sodium DS: Summary Status at Discharge Functional status at discharge: independent ambulation Overall status at discharge: patient is back to baseline Mental Status: mental status grossly normal Speech and Movement: speech and movement normal Mood: congruent mood Affect: normal affect Exam Const General: cooperative and no acute distress Nutritional Appearance: obese Orientation: alert and oriented x3 Eyes Sclera: sclerae normal Pupils: PERRL Neck Neck: full ROM and no JVD Resp Effort & Inspection: normal respiratory effort Auscultation: clear to auscultation bilaterally Cardio Rate: regular rate Rhythm: regular rhythm Heart Sounds: S1 normal and S2 normal GI Inspection: obesity Palpation: soft and nontender Auscultation: normal bowel sounds Extrem General: no pedal edema and no calf tenderness Psych Appearance: grossly normal Mental Status: mental status grossly normal Speech and Movement: speech and movement normal Mood: congruent mood Affect: normal affect Attitude: cooperative DS: Data Vitals/I&O Vitals and I&O: Vital Signs Temperature 36.3 C L 07/17/20 07:32 Temperature Source Temporal Artery Scan 07/17/20 07:32 Pulse 91 H 07/17/20 07:32 Pulse Rhythm Regular 07/17/20 11:04 Pulse 100 H 07/17/20 00:43 Respiratory Rate 18 07/17/20 07:32 Respiratory Effort Non-Labored 07/17/20 11:04 Respiratory Depth Normal 07/17/20 11:04 Blood Pressure 120/76 07/17/20 07:32 Blood Pressure Mean 100 07/17/20 00:30 Blood Pressure Position Sitting 07/16/20 22:18 Pulse Oximetry 94 07/17/20 07:32 Oxygen Delivery Method Room Air 07/17/20 07:32 Oxygen Flow Rate 0 07/17/20 07:32 Pain Level 6 07/17/20 11:30 Intake & Output 07/16/20 07/17/20 07/17/20 23:59 11:59 23:59 Intake Total 166.667 / 406.667 240 / 406.667 Output Total 150 / 150 Balance 16.667 / 256.667 240 / 256.667 Weight 108.862 kg 109.1 kg Intake: IV 166.667 / 166.667 Oral 240 / 240 Output: Urine 150 / 150 Other: Urine Color Pale Yellow Urine Appearance Clear Urine Odor Normal Voiding Methods Toilet Data Completed and Pending Completed studies during hospitalization [Text1]: Exam(s) PROCEDURE INFORMATION: Exam: XR Chest, 1 View Exam date and time: 07/16/2020 10:36 PM Age: 60 years old Clinical indication: Chest pain; Type not specified TECHNIQUE: Imaging protocol: XR of the chest Views: 1 view. COMPARISON: SC XR PORTABLE CHEST AP 01/16/2019 12:51 PM FINDINGS: Lungs: The lungs are clear. There is no pulmonary vascular congestion. Pleural space: Unremarkable. No pleural effusion. No pneumothorax. Heart/Mediastinum: The cardiomediastinal silhouette is within normal limits. Bones/joints: Unremarkable. IMPRESSION: No active cardiopulmonary disease identified. Unchanged exam. Labs on day of discharge: Labs from last 24 hours 07/17/20 07/17/20 07/17/20 08:45 08:25 08:15 WBC 8.64 RBC 3.30 L Hgb 10.2 L Hct 30.0 L MCV 90.9 MCH 30.9 MCHC 34.0 RDW 13.1 Plt Count 238 MPV 9.5 Immature Gran % 0.8 Neutrophils % 59.0 Lymphocytes % 32.4 Monocytes % 5.8 Eosinophils % 1.5 Basophils % 0.5 Nucleated RBC % 0 Absolute Neutrophils 5.10 Absolute Lymphocytes 2.80 Absolute Monocytes 0.50 Absolute Eosinophils 0.13 Absolute Basophils 0.04 PT INR APTT Sodium 142 Potassium 4.2 Chloride 108 H Carbon Dioxide 25.9 Anion Gap 8.1 BUN 38 H Creatinine 1.59 H Estimated GFR/1.73 m2 33.12 Glucose 91 D Hemoglobin A1c Calcium 8.6 Magnesium Total Bilirubin AST ALT Alkaline Phosphatase Troponin I Cancelled NT-Pro-B Natriuret Pep Total Protein Albumin Lipase COVID-19 PCR Nasopharyn COVID-19 PCR Ref Test Perform Site 07/17/20 07/17/20 07/17/20 08:15 08:15 06:08 WBC RBC Hgb Hct MCV MCH MCHC RDW Plt Count MPV Immature Gran % Neutrophils % Lymphocytes % Monocytes % Eosinophils % Basophils % Nucleated RBC % Absolute Neutrophils Absolute Lymphocytes Absolute Monocytes Absolute Eosinophils Absolute Basophils PT INR APTT Sodium Potassium Chloride Carbon Dioxide Anion Gap BUN Creatinine Estimated GFR/1.73 m2 Glucose Hemoglobin A1c Cancelled Calcium Magnesium 1.5 L Total Bilirubin AST ALT Alkaline Phosphatase Troponin I < 0.05 NT-Pro-B Natriuret Pep Total Protein Albumin Lipase COVID-19 PCR Nasopharyn COVID-19 PCR Ref Test Perform Site 07/17/20 07/17/20 07/16/20 01:14 00:40 22:30 WBC RBC Hgb Hct MCV MCH MCHC RDW Plt Count MPV Immature Gran % Neutrophils % Lymphocytes % Monocytes % Eosinophils % Basophils % Nucleated RBC % Absolute Neutrophils Absolute Lymphocytes Absolute Monocytes Absolute Eosinophils Absolute Basophils PT 9.4 INR 0.9 APTT 22.3 Sodium Potassium Chloride Carbon Dioxide Anion Gap BUN Creatinine Estimated GFR/1.73 m2 Glucose Hemoglobin A1c Calcium Magnesium Total Bilirubin AST ALT Alkaline Phosphatase Troponin I < 0.05 NT-Pro-B Natriuret Pep Total Protein Albumin Lipase COVID-19 PCR Pending Nasopharyn COVID-19 PCR Pending Ref Test Perform Site Pending 07/16/20 07/16/20 22:30 22:30 WBC 10.64 RBC 3.79 L Hgb 11.5 Hct 34.6 L MCV 91.3 MCH 30.3 MCHC 33.2 RDW 13.1 Plt Count 270 MPV 9.6 Immature Gran % 0.8 Neutrophils % 84.3 Lymphocytes % 10.2 Monocytes % 3.0 Eosinophils % 1.1 Basophils % 0.6 Nucleated RBC % 0 Absolute Neutrophils 8.97 H Absolute Lymphocytes 1.09 L Absolute Monocytes 0.32 Absolute Eosinophils 0.12 Absolute Basophils 0.06 PT INR APTT Sodium 138 Potassium 4.8 Chloride 105 Carbon Dioxide 26.7 Anion Gap 6.3 BUN 41 H Creatinine 1.74 H Estimated GFR/1.73 m2 29.85 Glucose 231 H Hemoglobin A1c Calcium 8.8 Magnesium 1.3 L Total Bilirubin 0.3 AST 14 L ALT 27 Alkaline Phosphatase 115 Troponin I < 0.05 NT-Pro-B Natriuret Pep 348 H Total Protein 7.2 Albumin 3.1 L Lipase 86 COVID-19 PCR Nasopharyn COVID-19 PCR Ref Test Perform Site [facility] Medical History Acute exacerbation of chronic obstructive airways disease Acute sinusitis Allergic rhinitis Anemia Benign neoplasm of peripheral 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 No complications. Cholecystectomy Coronary Stent H/O lumpectomy Hx of tubal ligation Family History Brother Diabetes Hypertension Heart disease Stroke Obesity Chronic headaches Arthritis Brother Arthritis Chronic headaches Diabetes Heart disease Hypertension Obesity Stroke Father Heart disease Stroke Hypertension Chronic headaches Sister Diabetes Obesity Osteoporosis Daughter Migraine Obesity Brother Arthritis Diabetes Chronic headaches Hypertension Obesity Stroke Mother Asthma Arthritis Diabetes Obesity Stroke Glaucoma Social History Smoking/Tobacco Use Status: Former Tobacco Use Quit Date: 04/13/19 Pack-years: 45 Tobacco: How many years used: 45 Quit status: considering quitting Smoking risk assessment performed?: Yes Alcohol Intake: never Drug use: Never Substance use type: does not use Details: Quit smoking 6 months ago. Household members: friend(s) Housing: apartment Number of Children: 3 number of grandchildren: 14 current occupation: none What is your relationship status?: Panel score (0-1 are the most socially isolated patients): 0 What type of physical activity do you participate in: none Do you feel safe at home: Yes Do you feel safe in your relationship?: Yes
[2020-07-19 11:05] LABS: COVID-19 RT-PCR UVMMC Result Negative (Negative)
== END 2020-07-17 16:21 | disposition home or self-care (01) ==
LOC: ER 07-17 00:57 → MS 07-17 00:58
PROVIDERS: Internal Medicine; Nurse Practitioner Family; Admitting Provider Family Medicine; Emergency Provider Emergency Medicine; PCP Nurse Practitioner Family; Visit Provider Family Medicine
DX: I25.119 Atherosclerotic heart disease of native coronary artery with unspecified angina pectoris (principal); J44.9 Chronic obstructive pulmonary disease, unspecified; F41.8 Other specified anxiety disorders; E11.22 Type 2 diabetes mellitus with diabetic chronic kidney disease; N18.30 Chronic kidney disease, stage 3 unspecified; I12.9 Hypertensive chronic kidney disease with stage 1 through stage 4 chronic kidney disease, or unspecified chronic kidney disease; M79.7 Fibromyalgia; E78.5 Hyperlipidemia, unspecified; Z95.5 Presence of coronary angioplasty implant and graft; Z79.4 Long term (current) use of insulin; Z87.891 Personal history of nicotine dependence
CPT/HCPCS: 36415; 78452; 80048; 80053; 83690; 93005; 93016; 93018; 96374; 99217; 99235; 99285; U0003; 71045; 83036; 83735; 83880; 84484; 85025; 85610; 85730; 93010; 93017; G0378; J2785; J3010; J3475; J3490; J7042; J7512

== ENCOUNTER 2020-11-13 19:32 | Emergency (ER) | payer MEDICARE, MEDICAID, SELFPAY ==
[2020-11-13] VITALS (22 sets, daily range): BP systolic 157–178; BP diastolic 74–143; PULSE 103–127; RESP 16–32; TEMP 36.5; O2SAT 78–98
--- NOTE | 2020-11-13 19:45 | RT.EKG_ITS ---
APPROVED REPORT Exam: Resting ECG Patient Location: E HR:118 bpm ECG Measurements Heart Rate 118 AXIS OR 156 P 56 QRSd 74 QRS -16 QT 317 T 57 QTc 445 Conclusion Sinus tachycardia...rate> 99 Inferior infarct, old...Q >35mS, II III aVF. No STEMI. I have reviewed and interpreted ECG and agree with software generated interpretation.
--- NOTE | 2020-11-13 20:00 | DI.RAD_ITS ---
EXAM: XR PORTABLE CHEST AP CLINICAL HISTORY: SOB TECHNIQUE: 2D digital imaging was performed. COMPARISON: CR,XR XR PORTABLE CHEST AP from 07/16/2020 FINDINGS: MEDIASTINUM: Normal. HEART: Normal. PULMONARY VASCULATURE: Normal. LUNGS: Bilateral pulmonary infiltrates. PLEURAL SPACE: No pleural effusion or pneumothorax. BONE:Within normal limits for the patient's age. OTHER FINDINGS:Normal. IMPRESSION: Bilateral pulmonary infiltrates. Differential considerations include atelectasis, edema or infection . Please correlate clinically. DATA REPOSITORY: RADIATION DOSE DELIVERED:
--- NOTE | 2020-11-13 20:10 | W.ED.GENAD ---
Discharge Plan Disposition Patient Disposition: HOME Condition: Stable Discharge Details Clinical Impression: COVID-19, Type 2 diabetes mellitus, Chronic kidney disease Primary Care Provider: Maylin Garcia ED Provider: Harini Fields [place] Meds and New Rx's Prescriptions: New doxycycline hyclate 100 mg capsule 100 mg PO BID Qty: 8 RF: 0 Continued nystatin 100,000 unit/mL Suspension 5 ml PO QID PRN PRNRF: 0 Narcan 4 mg/actuation [place],Non-Aerosol 4 mg INTRANASAL PRN PRNRF: 0 (DME) rolling walker with seat Qty: 1 RF: 0 zolpidem 10 MG tablet 10 mg PO HS PRNRF: 0 nitroglycerin [Nitrostat] 0.4 MG tablet, sublingual 0.4 mg Sublingual PRN PRNRF: 0 insulin aspart U-100 [Novolog Flexpen U-100 Insulin] 300 UNITS/3 ML insulin pen 0 units Sub-Q 0800,1200,1700 Qty: 1 RF: 1 cyclobenzaprine 10 mg tablet 10 mg PO Q8H PRN PRNRF: 0 atorvastatin 40 mg tablet 40 mg PO DAILY RF: 0 prednisone 10 mg tablet 10 mg PO DAILY RF: 0 cetirizine 10 mg tablet 10 mg PO DAILY RF: 0 hydrocodone-acetaminophen 5-325 mg tablet 1 tab PO Q8H PRN PRNRF: 0 cyanocobalamin (vitamin B-12) [Vitamin B-12] 1,000 mcg tablet 1,000 mcg PO DAILY RF: 0 aspirin 81 mg tablet,delayed release (DR/EC) 81 mg PO DAILY RF: 0 bupropion HCl 100 mg tablet sustained-release 12 hr 100 mg PO DAILY RF: 0 magnesium oxide 400 mg (241.3 mg magnesium) tablet 400 mg PO BID RF: 0 lorazepam 0.5 mg tablet 0.5 mg PO PRN PRNRF: 0 lisinopril 5 mg tablet 5 mg PO DAILY RF: 0 pyridoxine (vitamin B6) 100 mg tablet 100 mg PO DAILY RF: 0 fluticasone propionate 50 mcg/actuation spray,suspension 1 spray INTRANASAL DAILY RF: 0 duloxetine 30 mg capsule,delayed release(DR/EC) 30 mg PO DAILY RF: 0 duloxetine 60 mg capsule,delayed release(DR/EC) 60 mg PO DAILY RF: 0 Basaglar KwikPen U-100 Insulin 100 unit/mL (3 mL) insulin pen 50 unit SUBCUT DAILY RF: 0 Dexilant 60 mg capsule,biphase delayed releas 60 mg PO DAILY RF: 0 Flovent HFA 110 mcg/actuation Hfa Aerosol Inhaler 1 puff INHALATION BID PRNRF: 0 docusate sodium 250 mg Capsule 250 mg PO DAILY RF: 0 Discharge Instructions Instructions: Doxycycline (By mouth), Pulse Oximetry (ED), COVID-19 (Coronavirus Disease 2019) (ED) Additional Instructions: You are positive for COVID-19. Please wear a mask and quarantine. Your labs show chronic changes including your known kidney disease and elevated glucose. Your chest x-ray does show pneumonia which could be Covid alone or complicated by bacterial infection. I do feel that treatment with antibiotics would be appropriate given your chronic lung disease. You will be sent home with dosing for tonight and tomorrow morning. The rest will be at your pharmacy. Please encourage water intake. You may use Tylenol to help with fever or discomfort. You will be contacted tomorrow to discuss infusions for COVID-19. Please keep your upcoming appointment with your primary care doctor. Please monitor your oxygen as previously advised by your primary care. There is information that past regarding how to use pulse oximetry at home. If your oxygen is less than 90% please seek care emergently. Referrals: Maylin Garcia [Primary Care Provider] - Medical Decision Making <WHIT [place] - Last Filed: 11/13/20 23:10> Patient is a 60-year-old female brought in via EMS with concerns for COVID-19. Past medical history includes chronic renal impairment, CAD, depression, diabetes, fibromyalgia, hyperlipidemia, hypertension, panic disorder, pernicious anemia, PTSD, COPD. Patient is an ex-smoker. Patient's grandson is noted to be Covid positive. She has been spending time with him without any mask on. Few days ago, patient began having diarrhea, chills and cough. Patient reports that today she began having some mild shortness of breath prompting her to seek care emergently. She denies any abdominal pain. No chest pain. No pleuritic discomfort. She does endorse loss of sense of taste and smell. Patient has been using her medications as previously prescribed with some symptomatic relief. On exam, patient appears chronically unwell no overweight. She appears quite anxious. She maintaining her oxygen saturation. Her heart rate is elevated at 120. Blood pressure initially 171/93. Her lungs are clear. Abdomen exam is benign. Calves are soft with intact distal pulses. Primarily concerned for COVID-19 at this time. Jacob nursing any chest pain, blood suspicion for ACS at this time particularly she has so many other symptoms including diarrhea and loss of sense of taste and smell. Will obtain EKG as she has been feeling short of breath. Also considered possible PE. However, patient not having any pleuritic pain, hemoptysis and is not hypoxic. She does have chronic renal disease. We will hold off on D-dimer at this time as my suspicion for this is quite low and find COVID more likely diagnosis. I do not appreciate any wheezing, patient does have good air movement, I do not have evidence to suggest COPD exacerbation at this point. Will obtain baseline labs and portable chest x-ray. Discussed this plan with patient who is in agreement. She reports that she is only drinking soda. I am concerned for tachycardia is associated with dehydration we will give her fluids. Patient is having some diffuse body aches, will give Tylenol to help with discomfort. FINDINGS: Lungs: Bilateral airspace disease suggestive of edema or infection. Pleural spaces: Unremarkable. No pleural effusion. No pneumothorax. Heart/Mediastinum: Unremarkable. No cardiomegaly. Bones/joints: Unremarkable. IMPRESSION: Bilateral airspace disease suggestive of edema or infection. Patient tolerated responding to fluids. She did receive Tylenol and does appear much calmer. Labs reviewed. No leukocytosis. Stable H&H. Lymphocytes are low at 0.2 consistent with Covid. CMP concerning for creatinine of 1.9, GFR of 26. This is baseline for patient. Glucose 217, exam baseline for the. Patient calcium is low at 7.7, the findings with the patient. Patient's troponin within normal limits, BMP within normal limits. Patient is Covid positive. I discussed the findings with the patient. She does appear improved after hydration and Tylenol. Patient was able to road test with nursing staff and maintain her oxygen 99%. They did note that she was unstable but patient reports that this was her baseline that she does have a special walker that she uses when she is at home to help with ambulation as she typically is unsteady. She denies discussed physical therapy once she is no longer infectious with COVID-19. I am concerned that her generalized weakness will likely just worsened throughout the course of illness. Patient does appear to qualify for Mab infusion. I discussed this with the patient. Care management is aware and will help to set this up tomorrow and ensure that she will qualify for this. Based on patient's comorbidities and concern for potential pneumonia, will place her on doxycycline. Patient has home pulse ox that was given to her by primary care today. I advised that she continue to monitor this as was previously advised. Advised to return for oxygen saturation less than 90. Strict return precautions were discussed. Advised that she continue to quarantine and wear a mask. She will continue with her nebulizers and inhalers as needed. She has an appointment this week with her primary schedule, I advised that she keep upcoming appointment but let them know about her Covid status. All of her questions and concerns were addressed and she is in agreement this plan. Spoke with patient's daughter, Fernanda Solitario?[id number], who lives with the patient will be able to pick her up and bring her home. <Adilene Tinsley, DO - Last Filed: 11/13/20 22:34> I have seen and examined this patient. I discussed case and reviewed note with the PA and I agree with plan and note as documented. 60-year-old female with a history of coronary artery disease, diabetes, GERD, obesity, COPD, chronic kidney disease presents from home for generalized weakness, loss of sense of smell and taste, diarrhea, cough for the past 2 days and shortness of breath today. Patient has a recent positive Covid contact at home with her grandson who was recently diagnosed. She states they are not wearing masks or social distancing. Of note, patient's partner was here in the ED shortly before her with similar symptoms other than shortness of breath and diagnosed with COVID-19. Heart rate 120s on arrival. Oxygen saturation mid to high 90s on room air. She is afebrile and appears comfortable. Screening labs note normal white blood cell count and negative troponin. Chest x-ray notes Bilateral airspace disease suggestive of edema or infection. Patient's renal function did not allow CT imaging to rule out PE. As patient's heart rate improved with fluids and she has not hypoxic, presentation may be more due to COVID-19 and potential pneumonia rather than PE. Patient ambulated around the room with walker which is her baseline and oxygen saturation 99% on room air. Patient states she feels okay to go home. Patient has a follow-up appointment with her primary care doctor on 11/17/2020. Advised to increase fluids, rest. Considering patient's comorbidities, will likely treat pneumonia with antibiotics. Usual and customary return precautions given prior to discharge. Medical Records Medical records reviewed: Yes I reviewed the patient's medical records. HPI <WHIT [place] - Last Filed: 11/13/20 23:10> General Mode of arrival: EMS. Date/Time Provider Initiated Documentation: 11/13/20 20:09. Limitations to Documentation: no limitations. Information obtained by: patient, EMS and RN notes reviewed. History of Present Illness 60 year old F presents to the emergency department with the chief complaint of concerned for COVID-19, described as moderate, Quality is described as aching (reports diffuse body pain associated with PMR, no change in this), Patient started experiencing this day(s) and it has been constant. No relieving factors improve symptom(s), No exacerbating factors reported . Patient notes cough, fever/chills (chills, does not have working thermometer), loss of appetite, nausea/vomiting (vomited x 1) and shortness of breath (started today); denies chest pain, diaphoresis, rash and weakness. Patient did receive the following treatments prior to arrival, none Related Data Home Medications Medication Instructions Recorded Confirmed zolpidem 10 mg PO HS PRN 12/19/15 11/13/20 nitroglycerin [Nitrostat] 0.4 mg SUBLINGUAL PRN PRN 06/01/17 11/13/20 insulin aspart U-100 [Novolog 0 units SUB-Q 0800,1200,1700 #1 ea 06/04/17 11/13/20 Flexpen U-100 Insulin] Narcan 4 mg INTRANASAL PRN PRN 09/10/19 11/13/20 nystatin 5 ml PO QID PRN PRN 09/10/19 07/16/20 rolling walker with seat #1 ea 01/12/20 01/12/20 Basaglar KwikPen U-100 Insulin 50 unit SUBCUT DAILY 06/24/20 11/13/20 Dexilant 60 mg PO DAILY 06/24/20 11/13/20 Flovent HFA 1 puff INHALATION BID PRN 06/24/20 11/13/20 aspirin 81 mg PO DAILY 06/24/20 11/13/20 atorvastatin 40 mg PO DAILY 06/24/20 11/13/20 bupropion HCl 100 mg PO DAILY 06/24/20 11/13/20 cetirizine 10 mg PO DAILY 06/24/20 11/13/20 cyanocobalamin (vitamin B-12) 1,000 mcg PO DAILY 06/24/20 11/13/20 [Vitamin B-12] cyclobenzaprine 10 mg PO Q8H PRN PRN 06/24/20 11/13/20 duloxetine 30 mg PO DAILY 06/24/20 11/13/20 duloxetine 60 mg PO DAILY 06/24/20 11/13/20 fluticasone propionate 1 spray INTRANASAL DAILY 06/24/20 11/13/20 hydrocodone-acetaminophen 1 tab PO Q8H PRN PRN 06/24/20 11/13/20 lisinopril 5 mg PO DAILY 06/24/20 11/13/20 lorazepam 0.5 mg PO PRN PRN 06/24/20 11/13/20 magnesium oxide 400 mg PO BID 06/24/20 11/13/20 prednisone 10 mg PO DAILY 06/24/20 11/13/20 pyridoxine (vitamin B6) 100 mg PO DAILY 06/24/20 11/13/20 docusate sodium 250 mg PO DAILY 07/16/20 11/13/20 doxycycline hyclate 100 mg PO BID #8 cap 11/13/20 Previous Rx's Medication Instructions Recorded insulin aspart U-100 [Novolog 0 units SUB-Q 0800,1200,1700 #1 ea 06/04/17 Flexpen U-100 Insulin] rolling walker with seat #1 ea 01/12/20 doxycycline hyclate 100 mg PO BID #8 cap 11/13/20 Allergies Allergy/AdvReac Type Severity Reaction Status Date / Time quetiapine [From Seroquel] Allergy Intermediate Unverified 11/13/20 19:45 amoxicillin [From Augmentin] Allergy Unverified 11/13/20 19:45 clavulanic acid Allergy Unverified 11/13/20 19:45 [From Augmentin] Penicillins Allergy Unverified 11/13/20 19:45 Sulfa (Sulfonamide Allergy Unverified 11/13/20 19:45 Antibiotics) exenatide [From [place]] AdvReac Intermediate diarrhea Unverified 11/13/20 19:45 metformin AdvReac Intermediate diarrhea Unverified 11/13/20 19:45 amitriptyline AdvReac made my Unverified 11/13/20 19:45 face go numb amoxicillin trihydrate AdvReac acute Unverified 11/13/20 19:45 [From Augmentin] kidney failure NSAIDS (Non-Steroidal AdvReac stage III Unverified 11/13/20 19:45 Anti-Inflamma kidney disease potassium clavulanate AdvReac acute Unverified 11/13/20 19:45 [From Augmentin] kidney failure General Stated Complaint: SOB SADE: 2 Review of Systems <WHIT [place] - Last Filed: 11/13/20 23:10> Constitutional Constitutional: Reports as per HPI, Reports chills, Denies fever(s), Denies headache(s), Reports lethargy and Denies poor appetite Eyes Eyes: Denies change in vision ENT Ears, Nose, Mouth, and Throat: Denies dizziness and Denies headache(s) Cardiovascular Cardiovascular: Reports as per HPI, Denies chest pain, Denies chest pain with activity, Denies leg edema, Denies lightheadedness, Denies radiating jaw, neck or arm pain, Reports dyspnea and Denies dyspnea on exertion Respiratory Respiratory: Reports as per HPI, Denies chest congestion, Reports cough, Denies hemoptysis, Denies pain on inspiration, Denies pain with cough, Reports dyspnea, Denies dyspnea on exertion and Denies wheezing Gastrointestinal Gastrointestinal: Reports as per HPI, Denies abdominal pain, Reports diarrhea, Denies nausea and Reports vomiting Musculoskeletal Musculoskeletal: Reports as per HPI (diffuse chronic body pain) Integumentary/Breasts Skin/Breast: Reports as per HPI and Denies rash Neurologic Neurologic: Reports as per HPI, Denies dizziness and Denies headache(s) Allergic/Immunologic Allergic/Immunologic: Denies wheezing PFSH <WHIT [place] - Last Filed: 11/13/20 23:10> Medical History Acute exacerbation of chronic obstructive airways disease Acute sinusitis Allergic rhinitis Anemia Benign neoplasm of peripheral 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 No complications. Cholecystectomy Coronary Stent H/O lumpectomy Hx of tubal ligation Family History Brother Diabetes Hypertension Heart disease Stroke Obesity Chronic headaches Arthritis Brother Arthritis Chronic headaches Diabetes Heart disease Hypertension Obesity Stroke Father Heart disease Stroke Hypertension Chronic headaches Sister Diabetes Obesity Osteoporosis Daughter Migraine Obesity Brother Arthritis Diabetes Chronic headaches Hypertension Obesity Stroke Mother Asthma Arthritis Diabetes Obesity Stroke Glaucoma Social History Smoking/Tobacco Use Status: Former Tobacco Use Quit Date: 04/13/19 Pack-years: 45 Tobacco: How many years used: 45 Quit status: considering quitting Smoking risk assessment performed?: Yes Alcohol Intake: never Drug use: Never Substance use type: does not use Details: Quit smoking 6 months ago. Household members: friend(s) Housing: apartment Number of Children: 3 number of grandchildren: 14 current occupation: none What is your relationship status?: Panel score (0-1 are the most socially isolated patients): 0 What type of physical activity do you participate in: none Do you feel safe at home: Yes Do you feel safe in your relationship?: Yes Exam <WHIT [place] - Last Filed: 11/13/20 23:10> Const General: cooperative, healthy appearing, comfortable, no acute distress and well developed Nutritional Appearance: average body habitus and well nourished Orientation: alert, awake and oriented x3 HENMT Head: normal to inspection Ears: hearing grossly normal bilaterally Mouth: moist mucous membranes Chest Chest: normal inspection of the chest, normal palpation of entire chest wall and no crepitus Resp Effort & Inspection: normal respiratory effort, able to speak in complete sentences and no respiratory distress Auscultation: clear to auscultation bilaterally, no rales, no rhonchi and no wheezes Cardio Rate: regular rate Rhythm: regular rhythm Heart Sounds: S1 normal and S2 normal GI Inspection: normal to inspection, no edema and non-distended Palpation: soft, no hepatosplenomegaly, not firm, no guarding, not rigid and nontender Auscultation: normal bowel sounds Back/Spine/Pelvis Back: no CVA tenderness Thoracic/Lumbar Spine: thoracic and lumbar spine normal to inspection Skin General skin exam: no rashes or lesions noted Trauma: no lacerations or abrasions Neuro General: patient alert, patient awake and patient oriented x3 Cognition: normal cognition Speech: speech normal Gait: normal gait Extrem General: normal to inspection, capillary refill normal, no pedal edema, no calf tenderness and normal gait Psych Appearance: grossly normal and well kempt Mental Status: mental status grossly normal Speech and Movement: speech and movement normal Course <WHIT [place] - Last Filed: 11/13/20 23:10> Vital Signs Vital signs: Vital Signs Temperature 36.5 C 11/13/20 19:35 Pulse 120 H 11/13/20 19:35 Respiratory Rate 18 11/13/20 19:35 Blood Pressure 171/93 H 11/13/20 19:35 Pulse Oximetry 94 11/13/20 19:35 Temperature 36.5 C 11/13/20 19:35 Temperature Source Tympanic 11/13/20 19:35 Pulse 115 H 11/13/20 20:01 Pulse 117 H 11/13/20 20:01 Respiratory Rate 24 11/13/20 20:01 Respiratory Effort 11/13/20 19:41 Respiratory Depth Normal 11/13/20 19:41 Respiratory Pattern Tachypnea 11/13/20 19:41 Blood Pressure 157/74 H 11/13/20 20:01 Blood Pressure Mean 92 11/13/20 20:01 Blood Pressure Position Sitting 11/13/20 19:35 Pulse Oximetry 95 11/13/20 20:01 Oxygen Delivery Method Room Air 11/13/20 19:35 Oxygen Flow Rate 0 11/13/20 19:35
[2020-11-13] MEDS: Acetaminophen 325 MG TAB 650 MG PO (20:38)
[2020-11-13] MEDS: Lactated Ringers 500 ML IV (20:38)
--- NOTE | 2020-11-13 21:15 | DI.VRAD_ITS ---
PROCEDURE INFORMATION: Exam: XR Chest Exam date and time: 11/13/2020 8:40 PM Age: 60 years old Clinical indication: Shortness of breath; Patient HX: SOB TECHNIQUE: Imaging protocol: XR of the chest Views: 1 view. COMPARISON: CR XR PORTABLE CHEST AP 07/16/2020 10:38 PM FINDINGS: Lungs: Bilateral airspace disease suggestive of edema or infection. Pleural spaces: Unremarkable. No pleural effusion. No pneumothorax. Heart/Mediastinum: Unremarkable. No cardiomegaly. Bones/joints: Unremarkable. IMPRESSION: Bilateral airspace disease suggestive of edema or infection. Dictated and Authenticated by: Mildred Morgan MD. Ordering:NATALYA Schuler MD
[2020-11-13 21:29] LABS: Abs Immature Grans 0.02 10^3/uL (0.0-0.06); Absolute Basophil Count 0.01 10^3/uL (0.0-0.2); Absolute Eosinophil Count 0.01 10^3/uL (0.0-0.7); Absolute Lymphocyte Count 0.62 10^3/uL (1.2-3.4); Absolute Monocyte Count 0.21 10^3/uL (0.1-0.8); Absolute Neutrophil Count 3.75 10^3/uL (1.2-6.7); Basophils % 0.2; Eosinophils % 0.2; HGB 11.4 g/dL (11.2-15.7); Immature Grans % 0.4; Lymphocytes % 13.4; MCH 30.1 pg (27.0-33.0); MCHC 33.5 % (32.0-36.0); MCV 89.7 fL (80-95); MPV 9.6 fL (8.0-11.0); Monocytes % 4.5; Neutrophils % 81.3; Nucleated RBC 0 %; Platelet Count 168 10^3/uL (130-400); RBC 3.79 10^6/uL (3.93-5.22); RDW 12.2 % (11.7-14.6); RDW-SD 40.1 fL; WBC 4.62 10^3/uL (4.4-10.8)
[2020-11-13 21:36] LABS: COVID-19 PCR POSITIVE (Negative)
[2020-11-13 21:46] LABS: PTT Activated 26.3 sec (21.0-27.5); Prothrombin Time 10.4 sec (9.3-11.0)
[2020-11-13 21:49] LABS: ALT 27 U/L (14-59); AST 26 U/L (15-37); Albumin 2.5 g/dL (3.4-5.0); Alkaline Phosphatase 82 U/L (46-116); Anion Gap 11.2 mmol/L (3-11); BUN 35 mg/dL (7-18); Bilirubin, Total 0.5 mg/dL (0.2-1.0); CO2 23.8 mmol/L (21.0-32.0); CREATININE 1.9 mg/dL (0.55-1.02); Calcium 7.7 mg/dL (8.5-10.1); Chloride 100 mmol/L (98-107); Estimated GFR 26.96 (mL/min/1.73m2); Glucose 217 mg/dL (74-106); Magnesium 1.1 mg/dL (1.8-2.4); NT-proBNP 203 pg/mL (<300); Potassium 4.2 mmol/L (3.5-5.1); Sodium 135 mmol/L (136-145); Total Protein 6.7 g/dL (6.4-8.2)
[2020-11-13 21:50] LABS: Troponin I < 0.05 ng/mL (<0.06)
--- NOTE | 2020-11-13 22:22 | NUR.NOTE ---
Nursing Note: Ambulation test with pt and RN x 2. Walker used as pt reports she uses this at home too. Pt able to sit herself up at side of bed and standby standby assist. Asked pt, is this how you get around at home? Is this any different or worse than how you get around at home? Pt reports no this is the same. I don't move too well. Pt able to get herself up in bed. O2 sats no less than 94% when ambulating (on portable monitoring during ambulation test. Details in this note relayed to MARK Fields.
[2020-11-13] MEDS: Doxycycline Hyclate 100 MG CAP 200 MG PO (22:40)
--- NOTE | 2020-11-14 07:03 | NUR.NOTE ---
Referral to care management to set up appt for mab covid infusion also needs physical therapy.Nursing Note:
== END 2020-11-13 23:10 | disposition home or self-care (01) ==
PROVIDERS: Emergency Provider Physician Assistant; PCP Nurse Practitioner Family
DX: U07.1 COVID-19 (principal); J12.82 Pneumonia due to coronavirus disease 2019; R06.02 Shortness of breath; R43.8 Other disturbances of smell and taste; I12.9 Hypertensive chronic kidney disease with stage 1 through stage 4 chronic kidney disease, or unspecified chronic kidney disease; N18.30 Chronic kidney disease, stage 3 unspecified; E11.22 Type 2 diabetes mellitus with diabetic chronic kidney disease; Z79.4 Long term (current) use of insulin; E86.0 Dehydration
CPT/HCPCS: 36415; 80053; 87635; 93005; 96360; 99285; 71045; 83735; 83880; 84484; 85025; 85610; 85730; 93010

== ENCOUNTER 2020-11-15 14:00 | Inpatient (IN) | payer MEDICARE, MEDICAID, SELFPAY ==
[2020-11-15] VITALS (99 sets, daily range): BP systolic 105–129; BP diastolic 38–85; PULSE 93–135; RESP 13–40; TEMP 36–36.5; O2SAT 88–97
--- NOTE | 2020-11-15 14:30 | RT.EKG_ITS ---
APPROVED REPORT Exam: Resting ECG Patient Location: E HR:104 bpm ECG Measurements Heart Rate 104 AXIS [place] 166 P 40 QRSd 74 QRS -15 QT 338 T 37 QTc 445 Conclusion Sinus tachycardia...rate> 99
[2020-11-15] MEDS: Normal Saline Flush 10 ML SYR IVP ×2 (14:53→20:14)
[2020-11-15 15:04] LABS: Abs Immature Grans 0.04 10^3/uL (0.0-0.06); Absolute Basophil Count 0.01 10^3/uL (0.0-0.2); Absolute Eosinophil Count 0.01 10^3/uL (0.0-0.7); Absolute Lymphocyte Count 0.93 10^3/uL (1.2-3.4); Absolute Monocyte Count 0.31 10^3/uL (0.1-0.8); Basophils % 0.2; Eosinophils % 0.2; HCT 36.3 % (36.0-46.0); HGB 12.4 g/dL (11.2-15.7); Immature Grans % 0.7; Lymphocytes % 16.9; MCH 30.2 pg (27.0-33.0); MCHC 34.2 % (32.0-36.0); MCV 88.3 fL (80-95); MPV 10.7 fL (8.0-11.0); Monocytes % 5.6; Neutrophils % 76.4; Nucleated RBC 0 %; Platelet Count 196 10^3/uL (130-400); RBC 4.11 10^6/uL (3.93-5.22); RDW 12.3 % (11.7-14.6); RDW-SD 39.7 fL
[2020-11-15 15:10] LABS: Lactate 2.1 mmol/L (0.6-1.4)
--- NOTE | 2020-11-15 15:10 | ED.GENADUL_ITS ---
Discharge Plan Discharge Details Chief Complaint: SOB Admit Date/Time: 11/15/20 15:55 Admit Provider: Rosie Narvaez Attending Provider: Rosie Narvaez Primary Care Provider: Maylin Garcia ED Provider: Harini Fields Discharge Data Discharge Date/Time-TO BE ENTERED AT DEPARTURE: 11/15/20 17:42 Medical Decision Making Patient is a 60-year-old female with past medical history pertinent for CAD, diabetes, hypertension, GERD, COPD, depression, fibromyalgia, anemia. Patient was seen by myself 2 days ago instructed diagnosed with COVID-19. At that time, patient did not have any hypoxia, was ambulatory without hypoxia. However, given her comorbidities and age, patient did qualify for [facility] infusion. She was seen at the [facility] infusion site today and was told she was hypoxic and referred to the emergency department for further evaluation. Is reported by dentist with the patient ambulatory, her oxygen saturation dropped to 83% and is 89% when at rest. When she came here, her O2 was initially 89% after standing and pivoting into the bed. Quickly came back up. Patient was evaluated by respiratory therapy upon arrival and was initially on 1 L nasal cannula with an O2 of 98%. Since being here, patient reports her shortness of breath has increased. She has home pulse oximetry. Her daughter has been monitoring this but patient does not know what the readings have been. She denies any chest pain, abdominal pain. She did initially have diarrhea but this is subsided and she has not had any recent days. She denies any fevers or chills. Denies any nausea or vomiting but does report reduced appetite. States that she has been very fatigued. On exam, patient appears to be at her baseline. Not appreciate any respiratory distress. No work of breathing. Patient maintaining her oxygen well when at rest. She is currently off oxygenation and has an O2 of 97%. Auscultation of her lungs significant for diminished bases. Otherwise clear. Normal cardiac exam. No lower extremity swelling or calf tenderness. Abdominal exam is benign. Patient with patient's hypoxia and comorbidities, I do feel that more aggressive treatment for her known COVID-19 diagnosis is appropriate. We will begin the patient on steroids. Will obtain repeat labs. Patient likely have to be admitted as she does drop her oxygen saturation with movement. Also considered complications of the COVID-19 including bacterial pneumonia, patient is currently on antibiotics. Also considered pulmonary embolism. Will obtain D- dimer. Discussed this plan with the patient is in agreement. Labs reviewed. No leukocytosis. H&H stable. Lymphocyte count0.93. D-dimer 1344. Lactate 2.1. CMP significant for creatinine 1.9, GFR 26. This is baseline for the patient. Gap of 12.6. Patient's LDH 449, CRP 12.56. Troponin within normal limits. Procalcitonin normal at 0.1. Chest x-ray reviewed by myself and compared from the recent study. The infiltrates do appear more diffuse and on imaging from [address] Narvaez. Patient is currently on 1 L of oxygen. Much of her oxygen desaturations continue activity or positioning. I feel that inpatient admission is appropriate at this point. Patient is receiving 6 mg of dexamethasone. We discussed dosing of Lovenox. Patient will receive the 1 boo per cake daily dosing. We will also begin on remdesivir. Spoke with pharmacist to advise no loading dose with patient based on her kidney function. Ordered 100 mg of remdesivir to be given today. Discussed inpatient mission with the patient as well as the findings on her lab and imaging. She voiced understanding and is in agreement with this plan. Spoke with patient's daughter, . Reiterated the need for the family to quarantine as there are multiple positive people in the HPI General Mode of arrival: wheelchair . Date/Time Provider Initiated Documentation: 11/15/20 14:19 . Limitations to Documentation: no limitations . Information obtained by: patient, RN/MD (RN at the [facility]), RN notes reviewed and old records reviewed . History of Present Illness 60 year old F presents to the emergency department with the chief complaint of SOB, body aches, described as severe (chronic pain associated with fibromyalgia), Q uality is described as aching (diffuse body aches), Patient started experiencing this day(s) and it has been constant. No relieving factors improve symptom(s), No exacerbating factors reported . Patient notes cough, malaise and shortness of breath; denies confusion, chest pain, fever/chills, headaches, nausea/vomiting, rash and weakness. Patient did receive the following treatments prior to arrival, none Related Data Home Medications Medication Instructions Recorded Confirmed zolpidem 10 mg PO HS PRN 12/19/15 11/15/20 nitroglycerin [Nitrostat] 0.4 mg SUBLINGUAL PRN PRN 06/01/17 11/15/20 Narcan 4 mg INTRANASAL PRN PRN 09/10/19 11/15/20 nystatin 5 ml PO QID PRN PRN 09/10/19 11/15/20 rolling walker with seat #1 ea 01/12/20 01/12/20 Basaglar KwikPen U-100 Insulin 50 unit SUBCUT DAILY 06/24/20 11/15/20 Dexilant 60 mg PO DAILY 06/24/20 11/15/20 Flovent HFA 1 puff INHALATION BID PRN 06/24/20 11/15/20 aspirin 81 mg PO DAILY 06/24/20 11/15/20 atorvastatin 40 mg PO DAILY 06/24/20 11/15/20 bupropion HCl 100 mg PO DAILY 06/24/20 11/15/20 cetirizine 10 mg PO DAILY 06/24/20 11/15/20 cyanocobalamin (vitamin B-12) 1,000 mcg PO DAILY 06/24/20 11/15/20 [Vitamin B-12] cyclobenzaprine 10 mg PO Q8H PRN PRN 06/24/20 11/15/20 duloxetine 30 mg PO DAILY 06/24/20 11/15/20 duloxetine 60 mg PO DAILY 06/24/20 11/15/20 fluticasone propionate 1 spray INTRANASAL DAILY 06/24/20 11/15/20 hydrocodone-acetaminophen 1 tab PO Q8H PRN PRN 06/24/20 11/15/20 lisinopril 5 mg PO DAILY 06/24/20 11/15/20 lorazepam 0.5 mg PO PRN PRN 06/24/20 11/15/20 magnesium oxide 400 mg PO BID 06/24/20 11/15/20 prednisone 10 mg PO DAILY 06/24/20 11/15/20 pyridoxine (vitamin B6) 100 mg PO DAILY 06/24/20 11/15/20 docusate sodium 250 mg PO DAILY PRN 07/16/20 11/15/20 doxycycline hyclate 100 mg PO BID #8 cap 11/13/20 11/15/20 insulin aspart U-100 [Novolog 2 - 20 units SUB-Q 0800,1200,1700 11/15/20 11/15/20 Flexpen U-100 Insulin] Previous Rx's Medication Instructions Recorded rolling walker with seat #1 ea 01/12/20 doxycycline hyclate 100 mg PO BID #8 cap 11/13/20 Allergies Allergy/AdvReac Type Severity Reaction Status Date / Time quetiapine [From Seroquel] Allergy Intermediate Unverified 11/15/20 14:38 amoxicillin [From Augmentin] Allergy Unverified 11/15/20 14:38 clavulanic acid Allergy Unverified 11/15/20 14:38 [From Augmentin] Penicillins Allergy Unverified 11/15/20 14:38 Sulfa (Sulfonamide Allergy Unverified 11/15/20 14:38 Antibiotics) exenatide [From Byetta] AdvReac Intermediate diarrhea Unverified 11/15/20 14:38 metformin AdvReac Intermediate diarrhea Unverified 11/15/20 14:38 amitriptyline AdvReac made my Unverified 11/15/20 14:38 face go numb amoxicillin trihydrate AdvReac acute Unverified 11/15/20 14:38 [From Augmentin] kidney failure NSAIDS (Non-Steroidal AdvReac stage III Unverified 11/15/20 14:38 Anti-Inflamma kidney disease potassium clavulanate AdvReac acute Unverified 11/15/20 14:38 [From Augmentin] kidney failure General Stated Complaint: SOB SADE: 2 Review of Systems Constitutional Constitutional: Reports as per HPI, Denies chills, Denies fever(s), Denies headache(s), Reports lethargy and Reports poor appetite Eyes Eyes: Denies change in vision ENT Ears, Nose, Mouth, and Throat: Denies dizziness and Denies headache(s) Cardiovascular Cardiovascular: Reports as per HPI, Reports dyspnea and Reports dyspnea on exertion Respiratory Respiratory: Reports as per HPI, Reports chest congestion, Reports cough, Denies pain on inspiration, Denies pain with cough, Reports dyspnea, Reports dyspnea on exertion and Denies wheezing Gastrointestinal Gastrointestinal: Reports as per HPI, Denies abdominal pain, Denies diarrhea, Denies nausea and Denies vomiting Musculoskeletal Musculoskeletal: Reports as per HPI and Denies back pain Integumentary/Breasts Skin/Breast: Reports as per HPI and Denies rash Neurologic Neurologic: Reports as per HPI, Denies dizziness and Denies headache(s) Allergic/Immunologic Allergic/Immunologic: Denies wheezing [facility] Medical History Acute exacerbation of chronic obstructive airways disease Acute sinusitis Allergic rhinitis Anemia Benign neoplasm of peripheral 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 No complications. Cholecystectomy Coronary Stent H/O lumpectomy Hx of tubal ligation Family History Brother Diabetes Hypertension Heart disease Stroke Obesity Chronic headaches Arthritis Brother Arthritis Chronic headaches Diabetes Heart disease Hypertension Obesity Stroke Father Heart disease Stroke Hypertension Chronic headaches Sister Diabetes Obesity Osteoporosis Daughter Migraine Obesity Brother Arthritis Diabetes Chronic headaches Hypertension Obesity Stroke Mother Asthma Arthritis Diabetes Obesity Stroke Glaucoma Social History Smoking/Tobacco Use Status: Former Tobacco Use Quit Date: 04/13/19 Pack-years: 45 Tobacco: How many years used: 45 Quit status: considering quitting Smoking risk assessment performed?: Yes Alcohol Intake: never Drug use: Never Substance use type: does not use Details: Quit smoking 6 months ago. Household members: friend(s) Housing: apartment Number of Children: 3 number of grandchildren: 14 current occupation: none What is your relationship status?: Panel score (0-1 are the most socially isolated patients): 0 What type of physical activity do you participate in: none Do you feel safe at home: Yes Do you feel safe in your relationship?: Yes Exam Const General: cooperative, comfortable, no acute distress, well developed and ill appearing chronically Nutritional Appearance: well nourished and overweight Orientation: alert, awake and oriented x3 [facility] Head: normal to inspection Ears: hearing grossly normal bilaterally Mouth: mucous membranes dry (appears dry) Chest Chest: normal inspection of the chest, normal palpation of entire chest wall and no crepitus Resp Effort & Inspection: normal respiratory effort, able to speak in complete sentences and no respiratory distress Auscultation: clear to auscultation bilaterally, diminished lung sounds bilaterally in the lower lung coyne, no rales, no rhonchi and no wheezes Cardio Rate: regular rate Rhythm: regular rhythm Heart Sounds: S1 normal and S2 normal GI Inspection: normal to inspection, no edema and non-distended Palpation: soft, no hepatosplenomegaly, not firm, no guarding, not rigid and nontender Auscultation: normal bowel sounds Back/Spine/Pelvis Back: no CVA tenderness Thoracic/Lumbar Spine: thoracic and lumbar spine normal to inspection Skin General skin exam: no rashes or lesions noted Trauma: no lacerations or abrasions Neuro General: patient alert, patient awake and patient oriented x3 Cognition: normal cognition Speech: speech normal Gait: gait abnormal (difficulting ambulating at baseline) Extrem General: normal to inspection, capillary refill normal, no pedal edema, no calf tenderness and normal gait Psych Appearance: grossly normal and well kempt Mental Status: mental status grossly normal Speech and Movement: speech and movement normal Course Vital Signs Vital signs: Vital Signs Temperature 36.5 C 11/15/20 14:31 Pulse 113 H 11/15/20 14:31 Respiratory Rate 26 H 11/15/20 14:31 Blood Pressure 127/80 11/15/20 14:31 Pulse Oximetry 97 11/15/20 14:31 Temperature 36.5 C 11/15/20 14:31 Temperature Source Skin 11/15/20 14:31 Pulse 113 H 11/15/20 14:31 Respiratory Rate 24 11/15/20 14:35 Respiratory Effort Incrsd Work of Breathing 11/15/20 14:39 Respiratory Depth Shallow 11/15/20 14:35 Respiratory Pattern Tachypnea 11/15/20 14:35 Blood Pressure 127/80 11/15/20 14:31 Pulse Oximetry 95 11/15/20 14:43 Oxygen Delivery Method Nasal Cannula 11/15/20 14:43 Oxygen Flow Rate 0.5 11/15/20 14:43 Pain Level 10 11/15/20 14:31 Lab/Test Results Lab/Test Results: Laboratory Tests Range/Units 11/15/20 11/15/20 14:50 14:50 WBC (4.4-10.8) 10^3/uL 5.50 RBC (3.93-5.22) 10^6/uL 4.11 Hgb (11.2-15.7) g/dL 12.4 Hct (36.0-46.0) % 36.3 MCV (80-95) fL 88.3 MCH (27.0-33.0) pg 30.2 MCHC (32.0-36.0) % 34.2 RDW (11.7-14.6) % 12.3 Plt Count (130-400) 10^3/uL 196 MPV (8.0-11.0) fL 10.7 Immature Gran % 0.7 Neutrophils % 76.4 Lymphocytes % 16.9 Monocytes % 5.6 Eosinophils % 0.2 Basophils % 0.2 Nucleated RBC % % 0 Absolute Neutrophils (1.2-6.7) 10^3/uL 4.20 Absolute Lymphocytes (1.2-3.4) 10^3/uL 0.93 L Absolute Monocytes (0.1-0.8) 10^3/uL 0.31 Absolute Eosinophils (0.0-0.7) 10^3/uL 0.01 Absolute Basophils (0.0-0.2) 10^3/uL 0.01 VBG Lactate (0.6-1.4) mmol/L 2.1 H
[2020-11-15] MEDS: Dexamethasone 10 MG/ML VIAL 6 MG IVP (15:12)
[2020-11-15 15:14] LABS: ALT 28 U/L (14-59); AST 31 U/L (15-37); Albumin 2.7 g/dL (3.4-5.0); Alkaline Phosphatase 87 U/L (46-116); Anion Gap 12.6 mmol/L (3-11); BUN 36 mg/dL (7-18); Bilirubin, Total 0.6 mg/dL (0.2-1.0); CO2 22.4 mmol/L (21.0-32.0); CREATININE 1.9 mg/dL (0.55-1.02); Calcium 8.5 mg/dL (8.5-10.1); Chloride 101 mmol/L (98-107); Estimated GFR 26.96 (mL/min/1.73m2); Glucose 202 mg/dL (74-106); Potassium 4.2 mmol/L (3.5-5.1); Sodium 136 mmol/L (136-145); Total Protein 7.5 g/dL (6.4-8.2)
--- NOTE | 2020-11-15 15:15 | DI.RAD_ITS ---
EXAM: XR PORTABLE CHEST AP CLINICAL HISTORY: SOB, +COVID. TECHNIQUE: 2D digital imaging was performed. COMPARISON: CR,XR XR PORTABLE CHEST AP from 07/16/2020 CR,XR XR PORTABLE CHEST AP from 11/13/2020 CR,XR XR PORTABLE CHEST AP from 11/13/2020 FINDINGS: Heart size is normal. The mediastinum is not widened. Extensive bilateral pulmonary infiltrates are again noted.. No obvious pleural effusions. Chest is in place IMPRESSION: Extensive bilateral pulmonary infiltrates.No improvement from 11/13/2020. Slight progression. No ob vious pleural effusions evident on this single portable view. DATA REPOSITORY: RADIATION DOSE DELIVERED: All CT scans at this facility use at least one of these dose optimization techniques: automated exposure control; mA and/or kV adjustment per patient size (includes targeted e xams where dose is matched to clinical indication); or iterative reconstruction.
[2020-11-15 15:19] LABS: C-Reactive Protein 12.56 mg/dL (0.0-0.3); LDH 449 U/L (81-234); Troponin I < 0.05 ng/mL (<0.06)
--- NOTE | 2020-11-15 15:20 | RESPIRATORY ---
Pt entered ER via wheel chair. Pt moved from chair to bed and placed on SpO2 monitor. Pt was initially 89% RA and was placed on 2lpm NC and placed in a sitting upright position. After a short time Pt's SpO2 had increased to 98% on 2lpm and was titrated to 94% on RA. Pt appeared to be comfortable in this position on RA.
[2020-11-15 15:37] LABS: D-Dimer 1344 ng/mlFEU (<500)
[2020-11-15 15:39] LABS: PTT Activated 25.4 sec (21.0-27.5)
[2020-11-15 15:44] LABS: Ferritin 358 ng/mL (8-252)
[2020-11-15 15:46] LABS: Procalcitonin 0.1 ng/mL
[2020-11-15] MEDS: Enoxaparin 100 MG/ML SYR SC (16:09)
[2020-11-15] MEDS: Cholecalciferol (Vitamin D3) 1,000 UNIT TAB 2000 UNITS PO (17:25)
--- NOTE | 2020-11-15 17:30 | HPE_ITS ---
Date of service: 11/15/20 Time of Service: 17:30 Assessment and Plan Assessment and plan (1) Pneumonia due to COVID-19 virus: Status: Acute Assessment and plan: Admit to ICU. Initiate remdesivir and continue decadron initiated in the ED. Start vitamin C, D, zinc, pepcid, melatonin. Provide antitussives, inhalers. Monitor oxygenation closely. Full dose lovenox - monitor D-dimer and if, trending up, will pursue further imaging to r/o a PE. Proning. Wean O2 as tolerated. (2) Acute respiratory failure with hypoxia: Status: Acute Assessment and plan: As above (3) COPD (chronic obstructive pulmonary disease): Status: Chronic Assessment and plan: Continue home fluticasone in addition to scheduled combivent and prn albuterol here. No wheezing at this time. (4) Type 2 diabetes mellitus: Status: Acute Assessment and plan: We will titrate insulin regimen given that the pat ient is on steroids. (5) Chronic kidney disease: Status: Chronic Assessment and plan: At baseline. Will monitor carefully while on remdesivir (6) DVT prophylaxis: Status: Acute Assessment and plan: Full dose lovenox (7) Discharge planning issues: Status: Acute Assessment and plan: Full code. Admit to ICU. Total Critical Care Time 90 minutes. History of Present Illness History of Present Illness Chief Complaint: shortness of breath Narrative: Ms Jordan is a 60 year old female with PMHx of COPD, T2DM, CAD, HTN, CKD, who was diagnosed with COVID-19 on 11/13/20 [address] [facility] ED and was sent home to follow up with the respiratory care clinic for a MAB infusion, who was sent to [facility] ED today from the clinic for acute hypoxic respiratory failure with O2 sats of 84% on ambulation and dyspnea. She did not receive the MAB infusion. The patient states that she got COVID-19 from her grandson who lives with her. He is 16 and attends a local school. The patient first noticed her symptoms 4 days ago. She describes subjective fevers, chills, severe bodyaches, weakness, difficulty walking, sore throat, loss of taste and smell, nonproductive cough initially, though now she has brownish sputum, shortness of breath, nausea and diarrhea, which has now resolved. In the ED, her CXR shows significant involvement of the lung parenchyma by COVID-19. Her O2 requirement has been between 0.5 and 2 L of O2 by [place]. She was initiated on decadron and empiric full dose anticoagulation. Her kidney function is borderline for initiation of remdesivir. Hospitalists were asked to take over care. The patient is full code. When discussing risks/benefits of remdesivir with her borderline kidney function, the patient elected to go ahead and try it. Review of Systems All systems reviewed & are unremarkable except as noted in HPI and below PFSH Medical History Acute exacerbation of chronic obstructive airways disease Acute sinusitis Allergic rhinitis Anemia Benign neoplasm of peripheral 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 No complications. Cholecystectomy Coronary Stent H/O lumpectomy Hx of tubal ligation Family History Brother Diabetes Hypertension Heart disease Stroke Obesity Chronic headaches Arthritis Brother Arthritis Chronic headaches Diabetes Heart disease Hypertension Obesity Stroke Father Heart disease Stroke Hypertension Chronic headaches Sister Diabetes Obesity Osteoporosis Daughter Migraine Obesity Brother Arthritis Diabetes Chronic headaches Hypertension Obesity Stroke Mother Asthma Arthritis Diabetes Obesity Stroke Glaucoma Social History Smoking/Tobacco Use Status: Former Tobacco Use Quit Date: 04/13/19 Pack-years: 45 Tobacco: How many years used: 45 Quit status: considering quitting Smoking risk assessment performed?: Yes Alcohol Intake: never Drug use: Never Substance use type: does not use Details: Quit smoking 6 months ago. Household members: friend(s) Housing: apartment Number of Children: 3 number of grandchildren: 14 current occupation: none What is your relationship status?: Panel score (0-1 are the most socially isolated patients): 0 What type of physical activity do you participate in: none Do you feel safe at home: Yes Do you feel safe in your relationship?: Yes Meds Home Medications and Allergies Allergies Allergy/AdvReac Type Severity Reaction Status Date / Time quetiapine [From Seroquel] Allergy Intermediate Unverified 11/15/20 14:38 amoxicillin [From Augmentin] Allergy Unverified 11/15/20 14:38 clavulanic acid Allergy Unverified 11/15/20 14:38 [From Augmentin] Penicillins Allergy Unverified 11/15/20 14:38 Sulfa (Sulfonamide Allergy Unverified 11/15/20 14:38 Antibiotics) exenatide [From Byetta] AdvReac Intermediate diarrhea Unverified 11/15/20 14:38 metformin AdvReac Intermediate diarrhea Unverified 11/15/20 14:38 amitriptyline AdvReac made my Unverified 11/15/20 14:38 face go numb amoxicillin trihydrate AdvReac acute Unverified 11/15/20 14:38 [From Augmentin] kidney failure NSAIDS (Non-Steroidal AdvReac stage III Unverified 11/15/20 14:38 Anti-Inflamma kidney disease potassium clavulanate AdvReac acute Unverified 11/15/20 14:38 [From Augmentin] kidney failure Home Medications Medication Instructions Recorded Confirmed Type zolpidem 10 mg PO HS PRN 12/19/15 11/15/20 History nitroglycerin [Nitrostat] 0.4 mg SUBLINGUAL PRN PRN 06/01/17 11/15/20 History Narcan 4 mg INTRANASAL PRN PRN 09/10/19 11/15/20 History nystatin 5 ml PO QID PRN PRN 09/10/19 11/15/20 History rolling walker with seat #1 ea 01/12/20 01/12/20 Rx Basaglar KwikPen U-100 Insulin 50 unit SUBCUT DAILY 06/24/20 11/15/20 History Dexilant 60 mg PO DAILY 06/24/20 11/15/20 History Flovent HFA 1 puff INHALATION BID PRN 06/24/20 11/15/20 History aspirin 81 mg PO DAILY 06/24/20 11/15/20 History atorvastatin 40 mg PO DAILY 06/24/20 11/15/20 History bupropion HCl 100 mg PO DAILY 06/24/20 11/15/20 History cetirizine 10 mg PO DAILY 06/24/20 11/15/20 History cyanocobalamin (vitamin B-12) 1,000 mcg PO DAILY 06/24/20 11/15/20 History [Vitamin B-12] cyclobenzaprine 10 mg PO Q8H PRN PRN 06/24/20 11/15/20 History duloxetine 30 mg PO DAILY 06/24/20 11/15/20 History duloxetine 60 mg PO DAILY 06/24/20 11/15/20 History fluticasone propionate 1 spray INTRANASAL DAILY 06/24/20 11/15/20 History hydrocodone-acetaminophen 1 tab PO Q8H PRN PRN 06/24/20 11/15/20 History lisinopril 5 mg PO DAILY 06/24/20 11/15/20 History lorazepam 0.5 mg PO PRN PRN 06/24/20 11/15/20 History magnesium oxide 400 mg PO BID 06/24/20 11/15/20 History prednisone 10 mg PO DAILY 06/24/20 11/15/20 History pyridoxine (vitamin B6) 100 mg PO DAILY 06/24/20 11/15/20 History docusate sodium 250 mg PO DAILY PRN 07/16/20 11/15/20 History doxycycline hyclate 100 mg PO BID #8 cap 11/13/20 11/15/20 Rx insulin aspart U-100 [Novolog 2 - 20 units SUB-Q 0800,1200,1700 11/15/20 11/15/20 History Flexpen U-100 Insulin] Exam Narrative Exam Narrative: General: Pleasant obese female, calm, no respiratory distress, A&Ox3, answers questions appropriately, laying on her left side Neurological: A&Ox3, slight tremors, no focal deficits Psychiatric: appropriate speech pattern/content Skin: Visible skin intact. HEENT: Atraumatic, normocephalic, EOMI, MMM, wearing a mask - I did not examine oropharynx, no submandibular or cervical lymphadenopathy, no goiter or JVD Cardiovascular: RRR, no m/r/g Lungs: diminished breath sounds at B bases; otherwise, coarse breath sounds B Gastrointestinal: soft, nontender, nondistended Genitourinary: deferred Extremities: trace edema BLE's, trace pedal pulses, no clubbing/cyanosis Results Imaging Additional studies: CXR: Extensive bilateral pulmonary infiltrates.No improvement from 11/13/2020. Slight progression. No obvious pleural effusions evident on this single portable view. Labs Result diagrams: 11/15/20 14:50 11/15/20 14:50 Labs: Laboratory Results - last 24 hr 11/15/20 11/15/20 11/15/20 14:50 14:50 14:50 WBC 5.50 RBC 4.11 Hgb 12.4 Hct 36.3 MCV 88.3 MCH 30.2 MCHC 34.2 RDW 12.3 Plt Count 196 MPV 10.7 Immature Gran % 0.7 Neutrophils % 76.4 Lymphocytes % 16.9 Monocytes % 5.6 Eosinophils % 0.2 Basophils % 0.2 Nucleated RBC % 0 Absolute Neutrophils 4.20 Absolute Lymphocytes 0.93 L Absolute Monocytes 0.31 Absolute Eosinophils 0.01 Absolute Basophils 0.01 PT INR APTT D-Dimer 1344 H VBG Lactate Sodium 136 Potassium 4.2 Chloride 101 Carbon Dioxide 22.4 Anion Gap 12.6 H BUN 36 H Creatinine 1.9 H Estimated GFR/1.73 m2 26.96 Glucose 202 H Calcium 8.5 Ferritin Total Bilirubin 0.6 AST 31 ALT 28 Alkaline Phosphatase 87 Lactate Dehydrogenase Troponin I C-Reactive Protein Total Protein 7.5 Albumin 2.7 L Procalcitonin 11/15/20 11/15/20 11/15/20 14:50 14:50 14:50 WBC RBC Hgb Hct MCV MCH MCHC RDW Plt Count MPV Immature Gran % Neutrophils % Lymphocytes % Monocytes % Eosinophils % Basophils % Nucleated RBC % Absolute Neutrophils Absolute Lymphocytes Absolute Monocytes Absolute Eosinophils Absolute Basophils PT 10.0 INR 1.0 APTT 25.4 D-Dimer VBG Lactate 2.1 H Sodium Potassium Chloride Carbon Dioxide Anion Gap BUN Creatinine Estimated GFR/1.73 m2 Glucose Calcium Ferritin 358 H Total Bilirubin AST ALT Alkaline Phosphatase Lactate Dehydrogenase 449 H Troponin I < 0.05 C-Reactive Protein 12.56 H Total Protein Albumin Procalcitonin 0.1 Last Vital Signs Temp 36.4 C L 11/15/20 16:13 Pulse 96 H 11/15/20 17:00 Resp 20 11/15/20 17:01 BP 116/74 11/15/20 17:00 Pulse Ox 96 11/15/20 17:01 COVID-19 Screening Have you, or household traveled for leisure in last 14 days?: No Had IN PERSON contact w/suspected or confirmed C-19 person: Yes
[2020-11-15] MEDS: Insulin Aspart 300 UNITS/3 ML PEN SC ×2 (18:27→20:20)
[2020-11-15 18:44] LABS: Troponin I < 0.05 ng/mL (<0.06)
[2020-11-15] MEDS: Benzonatate 200 MG CAP PO (20:13)
[2020-11-15] MEDS: Melatonin 3 MG TAB PO (20:13)
[2020-11-15] MEDS: Cyclobenzaprine 10 MG TAB PO (20:13)
[2020-11-15] MEDS: Ascorbic Acid 500 MG TAB 1000 MG PO (20:13)
[2020-11-15] MEDS: Doxycycline Hyclate 100 MG CAP PO (20:13)
[2020-11-15] MEDS: Ipratropium/Albuterol 4 GM 120 PUFF INH IH (20:14)
[2020-11-15] MEDS: HYDROcodone 5/Acetaminophen 325 TAB PO (20:14)
[2020-11-15] MEDS: Magnesium Oxide 400 MG TAB PO (20:15)
[2020-11-15] MEDS: Famotidine 20 MG TAB PO (20:16)
[2020-11-16] VITALS (69 sets, daily range): BP systolic 105–144; BP diastolic 54–98; PULSE 80–115; RESP 14–31; TEMP 35.2–36.4; O2SAT 86–97
[2020-11-16 06:42] LABS: Lactate 1.3 mmol/L (0.6-1.4)
[2020-11-16 06:48] LABS: Abs Immature Grans 0.02 10^3/uL (0.0-0.06); Absolute Lymphocyte Count 0.42 10^3/uL (1.2-3.4); Absolute Monocyte Count 0.12 10^3/uL (0.1-0.8); HCT 31.6 % (36.0-46.0); HGB 10.8 g/dL (11.2-15.7); Immature Grans % 1.3; Lymphocytes % 26.9; MCH 30.3 pg (27.0-33.0); MCHC 34.2 % (32.0-36.0); MCV 88.5 fL (80-95); Monocytes % 7.7; Neutrophils % 64.1; Nucleated RBC 0 %; Platelet Count 192 10^3/uL (130-400); RBC 3.57 10^6/uL (3.93-5.22); RDW 12.2 % (11.7-14.6); RDW-SD 39.6 fL
[2020-11-16 06:57] LABS: Hemoglobin A1C 9.5 % (<5.7)
[2020-11-16 07:09] LABS: ALT 23 U/L (14-59); AST 21 U/L (15-37); Albumin 2.2 g/dL (3.4-5.0); Alkaline Phosphatase 81 U/L (46-116); Anion Gap 12.3 mmol/L (3-11); BUN 44 mg/dL (7-18); Bilirubin, Direct 0.2 mg/dL (0.0-0.2); Bilirubin, Total 0.5 mg/dL (0.2-1.0); CO2 20.7 mmol/L (21.0-32.0); CREATININE 1.9 mg/dL (0.55-1.02); Calcium 8.1 mg/dL (8.5-10.1); Chloride 103 mmol/L (98-107); Estimated GFR 26.96 (mL/min/1.73m2); Glucose 272 mg/dL (74-106); Potassium 4.3 mmol/L (3.5-5.1); Sodium 136 mmol/L (136-145); Total Protein 6.5 g/dL (6.4-8.2)
[2020-11-16 07:10] LABS: Creatine Kinase 52 U/L (26-192); LDH 342 U/L (81-234); Magnesium 1.4 mg/dL (1.8-2.4)
[2020-11-16 07:11] LABS: Troponin I < 0.05 ng/mL (<0.06)
[2020-11-16 07:14] LABS: WBC 1.56 10^3/uL (4.4-10.8)
[2020-11-16 07:15] LABS: RBC Morphology Normal
[2020-11-16 07:16] LABS: Diff Comment Agrees w/ Instrument
[2020-11-16 07:17] LABS: D-Dimer 833 ng/mlFEU (<500)
[2020-11-16 07:36] LABS: Ferritin 307 ng/mL (8-252)
--- NOTE | 2020-11-16 08:24 | W.PM.PROGNOT ---
Date of Service Date of service: 11/16/20 Time of Service: 16:45 Assessment and Plan Assessment and plan (1) Pneumonia due to COVID-19 virus: Status: Acute Assessment and plan: Stable on remdesivir and decadron, vitamin C, D, zinc, pepcid, melatonin. Continue to monitor in the ICU overnight. Continue antitussives, inhalers. Monitor oxygenation closely. Continue Full dose lovenox; consider VQ study vs CTA. Proning. Wean O2 as tolerated. (2) Acute respiratory failure with hypoxia: Status: Acute Assessment and plan: As above (3) COPD (chronic obstructive pulmonary disease): Status: Chronic Assessment and plan: Continue home fluticasone in addition to scheduled combivent and prn albuterol here. No wheezing at this time. (4) Type 2 diabetes mellitus: Status: Acute Assessment and plan: Increase long acting insulin and schedule prandial insulin in addition to SSI. (5) Chronic kidney disease: Status: Chronic Assessment and plan: At baseline. Will monitor carefully while on remdesivir (6) DVT prophylaxis: Status: Acute Assessment and plan: Full dose lovenox (7) Discharge planning issues: Status: Acute Assessment and plan: Full code. Keep in ICU Total Critical Care Time 40 minutes. Subjective Subjective Interval history since last seen: Feels better today - by which she means that she is not coughing. She did have diarrhea. Describes slight pain under her right ribs. Denies dizziness, nausea. Has been cooperating with proning from side to side. ON 1.5 L of O2 by [place]. desats to 89% when moving. SR, HR 80s, no issues with this overnight. Exam Narrative Exam Narrative: General: Pleasant obese female, A&Ox3, laying on her left side in bed, no cyanosis/dyspnea/tachypnea/cough. She is tremulous. HEENT: EOMI, MMM Cardiovascular: RRR, no m/r/g Lungs: diminished breath sounds B Gastrointestinal: soft, nontender, nondistended Extremities: trace edema BLE's, trace pedal pulses, no clubbing/cyanosis Objective Last Vital Signs Temp 35.8 C L 11/16/20 04:00 Pulse 96 H 11/16/20 06:15 Resp 21 11/16/20 06:33 BP 113/60 11/16/20 06:15 Pulse Ox 96 03/25/21 06:33 Laboratory Results - last 24 hr 11/15/20 11/15/20 11/15/20 06:15 14:50 14:50 WBC 5.50 RBC 4.11 Hgb 12.4 Hct 36.3 MCV 88.3 MCH 30.2 MCHC 34.2 RDW 12.3 Plt Count 196 MPV 10.7 Immature Gran % 0.7 Neutrophils % 76.4 Lymphocytes % 16.9 Monocytes % 5.6 Eosinophils % 0.2 Basophils % 0.2 Nucleated RBC % 0 Absolute Neutrophils 4.20 Absolute Lymphocytes 0.93 L Absolute Monocytes 0.31 Absolute Eosinophils 0.01 Absolute Basophils 0.01 RBC Morphology PT INR APTT D-Dimer VBG Lactate Sodium 136 Potassium 4.2 Chloride 101 Carbon Dioxide 22.4 Anion Gap 12.6 H BUN 36 H Creatinine 1.9 H Estimated GFR/1.73 m2 26.96 Glucose 202 H Hemoglobin A1c Calcium 8.5 Magnesium Ferritin Total Bilirubin 0.6 Conjugated Bilirubin AST 31 ALT 28 Alkaline Phosphatase 87 Lactate Dehydrogenase Creatine Kinase Troponin I < 0.05 C-Reactive Protein Total Protein 7.5 Albumin 2.7 L Procalcitonin 11/15/20 11/15/20 11/15/20 14:50 14:50 14:50 WBC RBC Hgb Hct MCV MCH MCHC RDW Plt Count MPV Immature Gran % Neutrophils % Lymphocytes % Monocytes % Eosinophils % Basophils % Nucleated RBC % Absolute Neutrophils Absolute Lymphocytes Absolute Monocytes Absolute Eosinophils Absolute Basophils RBC Morphology PT INR APTT D-Dimer 1344 H VBG Lactate 2.1 H Sodium Potassium Chloride Carbon Dioxide Anion Gap BUN Creatinine Estimated GFR/1.73 m2 Glucose Hemoglobin A1c Calcium Magnesium Ferritin 358 H Total Bilirubin Conjugated Bilirubin AST ALT Alkaline Phosphatase Lactate Dehydrogenase 449 H Creatine Kinase Troponin I < 0.05 C-Reactive Protein 12.56 H Total Protein Albumin Procalcitonin 0.1 11/15/20 11/16/20 11/16/20 14:50 06:35 06:35 WBC RBC Hgb Hct MCV MCH MCHC RDW Plt Count MPV Immature Gran % Neutrophils % Lymphocytes % Monocytes % Eosinophils % Basophils % Nucleated RBC % Absolute Neutrophils Absolute Lymphocytes Absolute Monocytes Absolute Eosinophils Absolute Basophils RBC Morphology PT 10.0 INR 1.0 APTT 25.4 D-Dimer VBG Lactate Sodium 136 Potassium 4.3 Chloride 103 Carbon Dioxide 20.7 L Anion Gap 12.3 H BUN 44 H Creatinine 1.9 H Estimated GFR/1.73 m2 26.96 Glucose 272 H Hemoglobin A1c Calcium 8.1 L Magnesium 1.4 L Ferritin 307 H Total Bilirubin 0.5 Conjugated Bilirubin 0.2 AST 21 ALT 23 Alkaline Phosphatase 81 Lactate Dehydrogenase 342 H Creatine Kinase 52 Troponin I < 0.05 C-Reactive Protein 8.20 H Total Protein 6.5 Albumin 2.2 L Procalcitonin 11/16/20 11/16/20 11/16/20 06:35 06:35 06:35 WBC 1.56 L* D RBC 3.57 L Hgb 10.8 L Hct 31.6 L MCV 88.5 MCH 30.3 MCHC 34.2 RDW 12.2 Plt Count 192 MPV 10.0 Immature Gran % 1.3 Neutrophils % 64.1 Lymphocytes % 26.9 Monocytes % 7.7 Eosinophils % 0.0 Basophils % 0.0 Nucleated RBC % 0 Absolute Neutrophils 1.00 L Absolute Lymphocytes 0.42 L Absolute Monocytes 0.12 Absolute Eosinophils 0.00 Absolute Basophils 0.00 RBC Morphology Normal PT INR APTT D-Dimer VBG Lactate 1.3 Sodium Potassium Chloride Carbon Dioxide Anion Gap BUN Creatinine Estimated GFR/1.73 m2 Glucose Hemoglobin A1c 9.5 H Calcium Magnesium Ferritin Total Bilirubin Conjugated Bilirubin AST ALT Alkaline Phosphatase Lactate Dehydrogenase Creatine Kinase Troponin I C-Reactive Protein Total Protein Albumin Procalcitonin 11/16/20 06:35 WBC RBC Hgb Hct MCV MCH MCHC RDW Plt Count MPV Immature Gran % Neutrophils % Lymphocytes % Monocytes % Eosinophils % Basophils % Nucleated RBC % Absolute Neutrophils Absolute Lymphocytes Absolute Monocytes Absolute Eosinophils Absolute Basophils RBC Morphology PT INR APTT D-Dimer 833 H VBG Lactate Sodium Potassium Chloride Carbon Dioxide Anion Gap BUN Creatinine Estimated GFR/1.73 m2 Glucose Hemoglobin A1c Calcium Magnesium Ferritin Total Bilirubin Conjugated Bilirubin AST ALT Alkaline Phosphatase Lactate Dehydrogenase Creatine Kinase Troponin I C-Reactive Protein Total Protein Albumin Procalcitonin
[2020-11-16] MEDS: Ascorbic Acid 500 MG TAB 1000 MG PO ×2 (08:34→19:53)
[2020-11-16] MEDS: Atorvastatin 40 MG TAB PO (08:35)
[2020-11-16] MEDS: Aspirin E.C. 81 MG TABEC PO (08:35)
[2020-11-16] MEDS: Cyanocobalamin 500 MCG TAB 1000 MCG PO (08:36)
[2020-11-16] MEDS: Cholecalciferol (Vitamin D3) 1,000 UNIT TAB 2000 UNITS PO (08:36)
[2020-11-16] MEDS: Dexamethasone 10 MG/ML VIAL 6 MG IVP (08:37)
[2020-11-16] MEDS: DULoxetine 30 MG CAP 90 MG PO (08:38)
[2020-11-16] MEDS: Docusate Sodium 100 MG CAP 200 MG PO (08:38)
[2020-11-16] MEDS: Doxycycline Hyclate 100 MG CAP PO ×2 (08:38→19:53)
[2020-11-16] MEDS: Insulin Glargine 300 UNITS/3 ML PEN 50 UNITS SC (08:39)
[2020-11-16] MEDS: Magnesium Oxide 400 MG TAB PO ×2 (08:40→19:54)
[2020-11-16] MEDS: Lisinopril 5 MG TAB PO (08:40)
[2020-11-16] MEDS: Fluticasone NASAL SPRAY 16 GM BTL NS (08:41)
[2020-11-16] MEDS: predniSONE 10 MG TAB PO (08:41)
[2020-11-16] MEDS: Ipratropium/Albuterol 4 GM 120 PUFF INH IH ×4 (08:47→21:35)
[2020-11-16] MEDS: Zinc Sulfate 220 MG TAB PO (08:52)
[2020-11-16] MEDS: buPROPion-CR 100 MG TABCR PO (08:53)
[2020-11-16] MEDS: Dexlansoprazole 30 MG CAP 60 MG PO (08:53)
[2020-11-16] MEDS: Cetirizine 10 MG TAB PO (08:53)
[2020-11-16] MEDS: Benzonatate 200 MG CAP PO ×3 (08:53→19:53)
--- NOTE | 2020-11-16 08:58 | PDOC.CMIN ---
- If Service Date Differs Date of service: 11/16/20 Time of Service: 08:58 Care Management Initial Assess REASON FOR HOSPITALIZATION:: Covid 19 Pneumonia PAST MEDICAL HISTORY/PAST SURGICAL HISTORY:: Acute exacerbation of chronic obstructive airways disease. Acute sinusitis. Allergic rhinitis. Anemia. Benign neoplasm of peripheral nerve. Benign neoplasm of peripheral nerves and autonomic nervous system, unspecified. Cataracts, bilateral. Chronic renal impairment associated with type 2 diabetes mellitus. CKD stage 3 due to type 2 diabetes mellitus. Colon polyp. Coronary artery disease. Depression. Diabetes. pt reports elevated HgbA1c. Diabetes mellitus with neurologic complication, with long-term current use of insulin. Diarrhea. Disorder of both eyes. Dupuytren's disease of palm. Dysrhythmia. Epigastric pain. Fibromyalgia. Hyperlipidemia. Hypertension. Hypomagnesemia. Insomnia. Low back pain. Mental disorder. 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 On group home drug therapy. Panic disorder. Pernicious anemia. Proliferative retinopathy due to DM. PTSD (post-traumatic stress disorder). Renal insufficiency. RLS (restless legs syndrome). Sleep disorder. Spasm. Tobacco user. Urinary tract infection. Wheezing. Surgical History . Appendectomy. section. x2. No complications. Cholecystectomy. Coronary Stent. H/O lumpectomy. Hx of tubal ligation PREVIOUS FUNCTIONAL STATUS/SOCIAL/FAMILY SUPPORTS:: Nimisha resides in [place], [place] with multiple family members including one of her daughters and grandsons. She is and her daughter Denae resides in [facility]. She was reportedly sent to the ED from the outpatient covid infusion clinic due to shortness of breath. CURRENT FUNCTIONAL STATUS:: Per FILIBERTO James, Nimisha has been up out of bed multiple times today and has eaten as well. She is on 1.5 L O2 and sats are 95-98%. Denae, her daughter has called and spoken to Jacob regarding medical updates; Jacob reports no immediate CM needs at this time. CM will continue to follow. ADVANCE DIRECTIVES:: None on file at [facility]. Has patient been provided with info about the portal/API?: Yes CODE STATUS:: Full Code INSURANCE COVERAGE / FINANCIAL ISSUES:: Medicaid. Medicare CURRENT HOME/COMMUNITY SERVICES/EQUIPMENT:: Walker, glucometer, disability support. PRIMARY CARE PHYSICIAN:: Maylin Garcia POTENTIAL DISCHARGE NEEDS:: Follow up appointments. PATIENT/FAMILY EDUCATION NEEDS:: Review discharge instructions, discuss Ask Me Three. ANTICIPATED BARRIERS TO DISCHARGE:: None identified at this time. TRANSPORTATION:: Via private vehicle with her daughter. PLAN:: Nimisha will discharge home when ready per MD. She will follow up with her PCP and plan of care as prescribed. She will transport home via private vehicle with her daughter, Denae.
[2020-11-16] MEDS: Insulin Aspart 300 UNITS/3 ML PEN SC ×4 (09:27→21:35)
[2020-11-16] MEDS: MAGNESIUM SULFATE 4 GM/100 ML BAG IVPB (10:20)
--- NOTE | 2020-11-16 11:16 | NUR.NOTE ---
Patient up to chair at 08:00 for breakfast. Patient stable on her feet with use of rolling walker and one stand-by assist.Nursing Note:
--- NOTE | 2020-11-16 11:20 | PHACLINREV_ITS ---
Pharmacy Admission Review - Admission Clinical Review (Last Reviewed 11/15/20 @ 22:12 by WHIT Alcala) Acute respiratory failure with hypoxia (Acute) Pneumonia due to COVID-19 virus (Acute) DVT prophylaxis (Acute) Discharge planning issues (Acute) Type 2 diabetes mellitus (Acute) quetiapine [From Seroquel] Allergy (Intermediate, Unverified 11/15/20 14:38) amoxicillin [From Augmentin] Allergy (Unverified 11/15/20 14:38) clavulanic acid [From Augmentin] Allergy (Unverified 11/15/20 14:38) Penicillins Allergy (Unverified 11/15/20 14:38) Sulfa (Sulfonamide Antibiotics) Allergy (Unverified 11/15/20 14:38) exenatide [From Byetta] Adverse Reaction (Intermediate, Unverified 11/15/20 14:38) diarrhea metformin Adverse Reaction (Intermediate, Unverified 11/15/20 14:38) diarrhea amitriptyline Adverse Reaction (Unverified 11/15/20 14:38) made my face go numb amoxicillin trihydrate [From Augmentin] Adverse Reaction (Unverified 11/15/20 14:38) acute kidney failure NSAIDS (Non-Steroidal Anti-Inflamma Adverse Reaction (Unverified 11/15/20 14:38) stage III kidney disease potassium clavulanate [From Augmentin] Adverse Reaction (Unverified 11/15/20 14:38) acute kidney failure Height 5 ft 1.25 in Weight 105.7 kg - Renal Dosing Renal Dosing: BUN 44 mg/dL (7-18) H 11/16/20 06:35 Creatinine 1.9 mg/dL (0.55-1.02) H 11/16/20 06:35 Medications needing adjustments: Intervened (eGFR is 26.96 ml/min) List of meds needing interventions: eGFR <30 -- md discussed the risk vs benefit of use of remdesivir with poor kidney fxn with pt and she chose to go ahead with treatment; continued duloxetine as pt has been on this intermodal dispatcher; LMWH is appropriately adjusted to a q24h frequency - Anticoagulation Anticoagulation: Hgb 10.8 g/dL (11.2-15.7) L 11/16/20 06:35 Hct 31.6 % (36.0-46.0) L 11/16/20 06:35 Plt Count 192 10^3/uL (130-400) 11/16/20 06:35 INR 1.0 (0.9-1.1) 11/15/20 14:50 Creatinine 1.9 mg/dL (0.55-1.02) H 11/16/20 06:35 Therapeutic Anticoagulation: Reviewed Medications: Enoxaparin - Opiate Usage Evaluate Pain Scale/Pains Meds: Reviewed Scheduled Bowel Reg ordered if on Opiates?: Yes - Relevant Labs Sodium 136 mmol/L (136-145) 11/16/20 06:35 Potassium 4.3 mmol/L (3.5-5.1) 11/16/20 06:35 Chloride 103 mmol/L (98-107) 11/16/20 06:35 Magnesium 1.4 mg/dL (1.8-2.4) L 11/16/20 06:35 C-Reactive Protein 8.20 mg/dL (0.0-0.3) H 11/16/20 06:35 Electrolytes, C-Reactive P, ESR: Reviewed (repleted with 4gm IV Mag) - DM Control DM Control: Glucose 272 mg/dL (74-106) H 11/16/20 06:35 Hemoglobin A1c 9.5 % (<5.7) H 11/16/20 06:35 Finger Stick Blood Glucose 284 Finger Stick Blood Glucose 284 Finger Stick Blood Glucose 284 Insulin Dosing: Reviewed (aspart per SS ordered - resistant protocol, glargine 50U daily) - Heart Failure/[place] Heart Failure/[place]: Troponin I < 0.05 ng/mL (<0.06) 11/16/20 06:35 EF%, JEAN's, B-Blockers, Diuretics: Reviewed - BP Control BP Control: Blood Pressure 113/60 Blood Pressure 132/98 Blood Pressure 112/94 Blood Pressure 105/55 Blood Pressure 107/64 Blood Pressure 130/79 Blood Pressure 118/72 - Qtc Review If Elevated: Reviewed - Home Meds Home Med List reviewed: Reviewed Relevent Home Meds Not ordered & why?: all ordered -- confirmed prednisone should be active in addition to IV dexamethasone - Current meds Current Medication Order Review: Reviewed (continue oral prednisone in addition to IV decadron -- MDA) - Comments Comments/Follow Ups: Patient will be treated with remdesivir despite nuclear medical technologist's recommendation against it's use due to lack of studies -- it is appropriate to weigh risk vs benefit in these situations Use not recommended. Remdesivir pharmacokinetics have not been evaluated in patients with renal impairment; possible accumulation of the excipient betadex sulfobutyl ether sodium may occur in patients with decreased renal function
--- NOTE | 2020-11-16 11:47 | NUR.NOTE ---
Patient back to bed at 11:00 after having a liquidy bowel movement and voided clear yellow urine.Nursing Note:
--- NOTE | 2020-11-16 11:50 | NUR.NOTE ---
Patient was out of bed to chair from 08:30 to approximately 11:00 a.m. Patient became tired and wanted to go back to bed. O2 sat was 93%on 2.5 liters at that time. When patient returned to bed to rest, hers 02 saturation went up to 95% and her 02 requirement decreased to 1.5 liters via nasal cannula.Nursing Note:
--- NOTE | 2020-11-16 12:24 | NUR.NOTE ---
Patient agrees that she will get out of bed at 14:00 today but will pick at her lunch from bed.Nursing Note:
--- NOTE | 2020-11-16 14:09 | W.INDIABCONS ---
Date of service: 11/16/20 Time of Service: 14:09 Diabetes Inpatient Consult DESCRIPTION/ASSESSMENT: 60 year old female admitted to ICU with respiratory failure, PNA secondary to Covid- 19, with hx of COPD, DM2, CKD, morbid obesity, CAD, HTN. Smoker x 45 years Most recent A1c: 9.5%. Home meds include 2-20 u novolog TID, 50 u lantus HS. Pt with uncontrolled DM with high risk for complications associated with poor glycemic control. Would benefit from outpatient nutrition counseling. Unable to provide diet education at this time. Will recommend follow up in outpatient setting. Following diabetic diet with adequate intake per nursing. INTERVENTION: continue diabetic diet with focus on lean protein, complex carbs and unsaturated fats PLAN: follow up in outpatient setting for diabetic self monitoring and diet education. Time Spent in Nutritional Counseling and Treatment: 0
[2020-11-16] MEDS: LORazepam 0.5 MG TAB PO ×2 (14:49→19:53)
[2020-11-16] MEDS: Enoxaparin 120 MG/0.8 ML SYR 110 MG SC (15:24)
[2020-11-16] MEDS: Normal Saline Flush 10 ML SYR IVP ×2 (15:35→18:21)
[2020-11-16] MEDS: HYDROcodone 5/Acetaminophen 325 TAB PO (19:53)
[2020-11-16] MEDS: Famotidine 20 MG TAB PO (21:02)
[2020-11-16] MEDS: Melatonin 3 MG TAB PO (21:03)
[2020-11-17] VITALS (21 sets, daily range): BP systolic 101–137; BP diastolic 61–109; PULSE 86–106; RESP 14–21; TEMP 36.1–36.6; O2SAT 87–96
[2020-11-17 07:21] LABS: Abs Immature Grans 0.01 10^3/uL (0.0-0.06); Absolute Eosinophil Count 0.01 10^3/uL (0.0-0.7); Absolute Lymphocyte Count 0.45 10^3/uL (1.2-3.4); Absolute Monocyte Count 0.25 10^3/uL (0.1-0.8); Eosinophils % 0.2; HCT 32.3 % (36.0-46.0); HGB 10.8 g/dL (11.2-15.7); Immature Grans % 0.2; MCH 29.9 pg (27.0-33.0); MCHC 33.4 % (32.0-36.0); MCV 89.5 fL (80-95); MPV 9.9 fL (8.0-11.0); Neutrophils % 85.6; Nucleated RBC 0 %; Platelet Count 275 10^3/uL (130-400); RBC 3.61 10^6/uL (3.93-5.22); RDW 12.4 % (11.7-14.6); RDW-SD 40.7 fL; WBC 5.02 10^3/uL (4.4-10.8)
[2020-11-17 07:39] LABS: ALT 22 U/L (14-59); AST 15 U/L (15-37); Albumin 2.3 g/dL (3.4-5.0); Alkaline Phosphatase 76 U/L (46-116); Anion Gap 11.7 mmol/L (3-11); BUN 62 mg/dL (7-18); Bilirubin, Direct 0.1 mg/dL (0.0-0.2); Bilirubin, Total 0.4 mg/dL (0.2-1.0); C-Reactive Protein 4.74 mg/dL (0.0-0.3); CO2 21.3 mmol/L (21.0-32.0); CREATININE 2.2 mg/dL (0.55-1.02); Calcium 8.6 mg/dL (8.5-10.1); Chloride 104 mmol/L (98-107); Estimated GFR 22.77 (mL/min/1.73m2); Glucose 234 mg/dL (74-106); Magnesium 2.1 mg/dL (1.8-2.4); Potassium 4.4 mmol/L (3.5-5.1); Sodium 137 mmol/L (136-145); Total Protein 6.5 g/dL (6.4-8.2)
[2020-11-17 07:54] LABS: D-Dimer 605 ng/mlFEU (<500)
[2020-11-17] MEDS: Cyanocobalamin 500 MCG TAB 1000 MCG PO (08:01)
[2020-11-17] MEDS: Normal Saline Flush 10 ML SYR IVP ×2 (08:01→19:49)
[2020-11-17] MEDS: buPROPion-CR 100 MG TABCR PO (08:02)
[2020-11-17] MEDS: DULoxetine 30 MG CAP 90 MG PO (08:02)
[2020-11-17] MEDS: Cholecalciferol (Vitamin D3) 1,000 UNIT TAB 2000 UNITS PO (08:03)
[2020-11-17] MEDS: Lisinopril 5 MG TAB PO (08:03)
[2020-11-17] MEDS: Dexlansoprazole 30 MG CAP 60 MG PO (08:03)
[2020-11-17] MEDS: Doxycycline Hyclate 100 MG CAP PO ×2 (08:04→19:49)
[2020-11-17] MEDS: Magnesium Oxide 400 MG TAB PO ×2 (08:04→19:49)
[2020-11-17] MEDS: Ascorbic Acid 500 MG TAB 1000 MG PO ×2 (08:04→19:48)
[2020-11-17] MEDS: predniSONE 10 MG TAB PO (08:04)
[2020-11-17] MEDS: Benzonatate 200 MG CAP PO ×3 (08:04→19:49)
[2020-11-17] MEDS: Zinc Sulfate 220 MG TAB PO (08:04)
[2020-11-17] MEDS: Cetirizine 10 MG TAB PO (08:04)
[2020-11-17] MEDS: Atorvastatin 40 MG TAB PO (08:05)
[2020-11-17] MEDS: Aspirin E.C. 81 MG TABEC PO (08:05)
[2020-11-17] MEDS: Dexamethasone 10 MG/ML VIAL 6 MG IVP (08:06)
[2020-11-17 08:08] LABS: Hemoglobin A1C 9.6 % (<5.7)
[2020-11-17] MEDS: Insulin Glargine 300 UNITS/3 ML PEN 60 UNITS SC (08:09)
[2020-11-17] MEDS: Ipratropium/Albuterol 4 GM 120 PUFF INH IH ×4 (08:10→19:51)
[2020-11-17] MEDS: Insulin Aspart 300 UNITS/3 ML PEN 10 UNITS SC ×3 (08:14→18:00)
[2020-11-17 08:15] LABS: Ferritin 292 ng/mL (8-252)
--- NOTE | 2020-11-17 08:22 | W.PM.PROGNOT ---
Date of Service Date of service: 11/17/20 Time of Service: 11:47 Assessment and Plan Assessment and plan (1) Pneumonia due to COVID-19 virus: Status: Acute Assessment and plan: Improving on remdesivir and decadron, vitamin C, D, zinc, pepcid, melatonin. Continue antitussives, inhalers. Monitor oxygenation closely. Continue Full dose lovenox; consider VQ study vs CTA. Proning. Wean O2 as tolerated. Transfer out of ICU. (2) Acute respiratory failure with hypoxia: Status: Acute Assessment and plan: As above O2 requirement is improving. (3) COPD (chronic obstructive pulmonary disease): Status: Chronic Assessment and plan: Continue home fluticasone in addition to scheduled combivent and prn albuterol here. (4) Type 2 diabetes mellitus: Status: Acute Assessment and plan: Increase long acting insulin (will add 10 units lantus QHS to the am lantus); continue schedule prandial insulin in addition to SSI. (5) Chronic kidney disease: Status: Chronic Assessment and plan: Cr 2.2 this am, slightly worse. Discussed with patient and pharmacy. The patient is willing to accept remdesivir today fully aware and understanding risks of toxicity. Continue remdesivir. Encourage PO water intake. Will monitor carefully while on remdesivir (6) Open wound of left axillary region: Status: Acute Assessment and plan: Present on admission, already undergoing treatment with doxycycline per PCP prior to presentation here. Continue doxycycline (MRSA), dry sterile dressing. (7) DVT prophylaxis: Status: Acute Assessment and plan: Full dose lovenox (renally adjusted). (8) Discharge planning issues: Status: Acute Assessment and plan: Full code. Transfer out of ICU. Subjective Subjective Interval history since last seen: spent the night on 1L of O2. 93% on 1L of O2 now. Feels better. Denies cough this morning. Denies dizziness, chest pain, shortness of breath, nausea. Still has bodyaches. States pain is well managed. Denies diarrhea today. Was on her back this am - we think she slept like that. Exam Narrative Exam Narrative: Visit today done via phone while standing outside the patient's glass door into her room and visualizing her. General: Pleasant obese female, A&Ox3, laying on her side in bed, no cyanosis/dyspnea/tachypnea/cough. Looks better HEENT: EOMI Cardiovascular: not auscultated; night monitor with SR, HR 99. Lungs: Nonlabored breathing. Gastrointestinal: nondistended Extremities: able to move all 4 extremities, slight tremor in BUE noted Objective Last Vital Signs Temp 36.6 C 11/17/20 03:41 Pulse 92 H 11/17/20 04:00 Resp 21 11/17/20 04:00 BP 137/75 11/17/20 04:00 Pulse Ox 92 11/17/20 03:43 Laboratory Results - last 24 hr 11/17/20 11/17/20 11/17/20 07:05 07:05 07:05 WBC 5.02 D RBC 3.61 L Hgb 10.8 L Hct 32.3 L MCV 89.5 MCH 29.9 MCHC 33.4 RDW 12.4 Plt Count 275 MPV 9.9 Immature Gran % 0.2 Neutrophils % 85.6 Lymphocytes % 9.0 Monocytes % 5.0 Eosinophils % 0.2 Basophils % 0.0 Nucleated RBC % 0 Absolute Neutrophils 4.30 Absolute Lymphocytes 0.45 L Absolute Monocytes 0.25 Absolute Eosinophils 0.01 Absolute Basophils 0.00 D-Dimer Sodium 137 Potassium 4.4 Chloride 104 Carbon Dioxide 21.3 Anion Gap 11.7 H BUN 62 H D Creatinine 2.2 H Estimated GFR/1.73 m2 22.77 Glucose 234 H Hemoglobin A1c 9.6 H Calcium 8.6 Magnesium 2.1 Ferritin 292 H Total Bilirubin 0.4 Conjugated Bilirubin 0.1 AST 15 ALT 22 Alkaline Phosphatase 76 C-Reactive Protein 4.74 H Total Protein 6.5 Albumin 2.3 L 11/17/20 07:05 WBC RBC Hgb Hct MCV MCH MCHC RDW Plt Count MPV Immature Gran % Neutrophils % Lymphocytes % Monocytes % Eosinophils % Basophils % Nucleated RBC % Absolute Neutrophils Absolute Lymphocytes Absolute Monocytes Absolute Eosinophils Absolute Basophils D-Dimer 605 H Sodium Potassium Chloride Carbon Dioxide Anion Gap BUN Creatinine Estimated GFR/1.73 m2 Glucose Hemoglobin A1c Calcium Magnesium Ferritin Total Bilirubin Conjugated Bilirubin AST ALT Alkaline Phosphatase C-Reactive Protein Total Protein Albumin
[2020-11-17] MEDS: Fluticasone NASAL SPRAY 16 GM BTL NS (08:30)
[2020-11-17] MEDS: Insulin Aspart 300 UNITS/3 ML PEN SC ×2 (08:52→12:57)
--- NOTE | 2020-11-17 08:59 | RESPIRATORY ---
Pt trialled on room air and Pt saturation remained approximately 88% at rest lying on Pt's right side. Pt placed back on 1lpm saturating 93%.
[2020-11-17] MEDS: HYDROcodone 5/Acetaminophen 325 TAB PO ×2 (09:00→17:15)
--- NOTE | 2020-11-17 12:18 | CMPROGNOTE_ITS ---
Care Management Progress Note S/O: Nimisha continues to make gains, per MD is on room air this morning and will be downgraded to Med/Surg level of care. CM continues to follow. A: 60 year old female admitted to [facility] 11/15/20 for Covid-19 Pneumonia P: Nimisha will discharge home when ready per MD. She will follow up with her PCP and plan of care as prescribed. She will transport home via private vehicle with her daughter, Denae.
--- NOTE | 2020-11-17 12:58 | PT.INIE ---
Date of service: 11/17/20 Time of Service: 12:58 PT Notes Visit Reasons: COVID-19 PNEUMONIA Physical Therapy Inpatient Initial Evaluation Date: 11/17/2020 Referring Doctor: Rosie Narvaez MD PT Orders: PT CONSULT: Limited ability Precautions: Fall. Standard. COVID-19 precautions/protocol in place. Activity as tolerated. Patient Profile/Admitting Diagnosis: Stephanie is a 60-year-old female who presented to the ED on 11/15/2020 with increasing shortness of breath and fatigue. Patient is diagnosed with pneumonia due to COVID-19 infection, acute respiratory failure, chronic obstructive pulmonary disease exacerbation, type 2 diabetes mellitus, and chronic kidney disease. PMHX: Medical History Acute exacerbation of chronic obstructive airways disease Acute sinusitis Allergic rhinitis Anemia Benign neoplasm of peripheral nerve Benign neoplasm of peripheral nerves and autonomic nervous system, unspecified Cataracts, bilateral Chronic renal impairment associated with type 2 diabetes mellitus CKD stage 3 due to type 2 diabetes mellitus Colon polyp Coronary artery disease Depression Diabetes pt reports elevated HgbA1c Diabetes mellitus with neurologic complication, with long-term current use of insulin Diarrhea Disorder of both eyes Dupuytren's disease of palm Dysrhythmia Epigastric pain Fibromyalgia Hyperlipidemia Hypertension Hypomagnesemia Insomnia Low back pain Mental disorder 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 No complications. Cholecystectomy Coronary Stent H/O lumpectomy Hx of tubal ligation Social History/Home Situation: Lives with family in an apartment with a ramp to enter. Independent with front-wheeled walker at baseline. Equipment Owned/DME: Front wheeled walker Subjective: Reports continued shortness of breath, fatigue, generalized weakness. States that family will be able to provide support for her when she goes home. Deeply concerned about her significant other being in a different hospital with the same condition. Complained of 6?10 pain in the low back with weight bearing and ambulation activity. States that this intensity is her baseline for a long time. Objective: General Observation: Telemetry monitoring in place. Harris catheter in place. IV in the left UE. Short of breath at rest and during conversation. On oxygen supplementation via NC. Nurse Maile assisting with mobility assessment for safety. Mental Status: Alert and oriented x4 Pain: Reported pain in low back 6/10 after ambulation activity. Right medial thigh tender to touch. Vital Signs: Desaturated to 86% after ambulation activity ROM: Right Upper Extremity: Shoulder Flexion WFL. Shoulder abduction WFL. Elbow flexion WFL. Wrist flexion WFL. Opening and closing of hand WFL. Left Upper Extremity: Shoulder Flexion WFL. Shoulder abduction WFL. Elbow flexion WFL. Wrist flexion WFL. Opening and closing of hand WFL. Right Lower Extremity: Hip flexion WFL. Hip abduction WFL. Knee flexion WFL. Ankle dorsiflexion WFL. Ankle plantarflexion WFL. Left Lower Extremity: Hip flexion WFL. Hip abduction WFL. Knee flexion WFL. Ankle dorsiflexion WFL. Ankle plantarflexion WFL. Strength: Right Upper Extremity: Shoulder flexors 3+/5. Shoulder abductors 3+/5. Elbow flexors 3+/5. Elbow extensors 3+/5. Tree Trimmer Helper strong. Left Upper Extremity: Shoulder flexors 4-/5. Shoulder abductors 4-/5. Elbow flexors 4-/5. Elbow extensors 4-/5. Tree Trimmer Helper strong. Right Lower Extremity: Hip flexors 3+/5. Hip abductors 3+/5. Knee flexors 3+/5. Knee extensors 3+/5. Ankle dorsiflexors 3+/5. Ankle plantarflexors 4-/5. Left Lower Extremity:Hip flexors 4/5. Hip abductors 4/5. Knee flexors 4/5. Knee extensors 4/5. Ankle dorsiflexors 4/5. Ankle plantarflexors 4/5. Sensation: Intact as to pain and pressure on bilateral lower extremities. No report of tingling or numbness in bilateral lower extremities. Bed Mobility/Transfers: Rolling minimal assist Sit to stand standby assist Stand to sit contact guard assist Bed to chair contact-guard assist Sit to supine minimal assist Gait: Instructed patient on safe performance of short distance in room ambulation of 8-10 steps forward and backward for 2 sets using front wheeled walker with standby assist to walk forward but required minimal assist to back up. Reported 6?10 pain in the low back area after ambulation activity. Small, hesitant steps. Shortness of breath increased with activity but resolved with rest. Desaturated to 86% even with oxygen supplementation by 3 saturating back to above 90% for about 3 minutes or so. Balance: Static Sitting: Normal Dynamic Sitting: Normal Static Standing: Fair Dynamic Standing: Fair Special Tests: Mobility Limitations Standardized Measure [facility] AM-PAC 6 clicks Basic Mobility Inpatient Short Form: Raw Score: 18 CMS Score: 47% deficit Informed Consent/Education: Patient instructed in purpose of PT consult and plan of care. Assessment: COVID-19 positive infection. Nimisha demonstrates significant functional mobility decline requiring assistance of 1 and the use of a front wheeled walker for all mobility ADL performance, generalized weakness, decreased activity tolerance, impairment in balance, and increased risk for falls due to admitting diagnoses and comorbidities. Patient presents with clinical signs and symptoms consistent with current/admitting diagnoses that have resulted to mobility limitations, gait instability, generalized weakness, and impairment of motor control as demonstrated by the following impairment level findings: 1. Decreased strength to BUE UEs/LE major muscle groups 2. Impaired standing balance and tolerance 3. Impaired activity tolerance 4. Shortness of breath Impairments are contributing to the following functional limitations: 1. Dependent bed mobility skills 2. Increased dependence with transfers 3. Inability to safely ambulate without assistive device and physical assistance 4. Increase completion time for mobility ADL performance 5. Increased fall risk 6. Inability to negotiate steps alone safely Patient is assessed as a 05663 high complexity based on the following: History: 60-year-old female with impairment level findings, functional limitations, and past medical history as indicated above Examination: Demonstrable impairment in activity tolerance, strength, balance, and mobility level with underlying impairments and functional limitations as documented above with [facility] score of 47% deficit Presentation: Evolving Decision Makin high complexity Goals: Goals X1 week 1. Supine-Sit independent 2. Sit-Supine independent 3. Sit-Stand independent 4. Stand-Sit independent 5. Bed-Chair independent 6. Chair-Bed independent 7. Independent gait on level surface with use of least restrictive device for at least 100 feet without report of pain nor dyspnea 8. Independent stair negotiation while holding onto bilateral rails for at least 10 steps without report of pain nor dyspnea 9. Independent with home exercise program 10. Good static and dynamic standing balance/tolerance Plan of Care/Treatment Plan: 1-2x/day, 7 days/week x 1 week. Plan of care has been reviewed with the FACTORY LAY OUT ENGINEER providing the service under Physical Therapy direction. Initiate Physical Therapy intervention for strengthening, bed mobility, transfers, gait, stairs, balance training, use of assistive device. DISCHARGE RECOMMENDATIONS: Patient will benefit from home health PT services in order to progress mobility level using least restrictive assistive ambulatory device, assess home safety, identify additional equipment needs, and establish a functional maintenance program that will increase ability of patient to remain at home. TREATMENT CODE/TIME: 82863 x 30 minutes, 71036 x 16 minutes beginning at 12:58 PM. Thank you for the opportunity to participate in the care of this patient. Patricia Degroot PT, DPT, CLT [facility] [place], [place]
[2020-11-17] MEDS: Enoxaparin 120 MG/0.8 ML SYR 110 MG SC (16:40)
[2020-11-17] MEDS: Famotidine 20 MG TAB PO (22:30)
[2020-11-17] MEDS: Melatonin 3 MG TAB PO (22:30)
[2020-11-17] MEDS: Insulin Glargine 300 UNITS/3 ML PEN 10 UNITS SC (22:30)
[2020-11-18] VITALS (16 sets, daily range): BP systolic 109–139; BP diastolic 60–84; PULSE 90–109; RESP 18–22; TEMP 35.9–36.4; O2SAT 92–95
--- NOTE | 2020-11-18 02:43 | NUR.NOTE ---
Nursing Note: Patient transferred from ICU to Med/Surg. Patient's shoes, watch, glasses in room. Patient's inhalers, insulin pens, and pill splitter are at bedside due to COVID positive status. Patient unable to prone due to previous back injury.
[2020-11-18 06:45] LABS: Lactate 0.9 mmol/L (0.6-1.4)
[2020-11-18 06:46] LABS: Abs Immature Grans 0.05 10^3/uL (0.0-0.06); Absolute Lymphocyte Count 0.43 10^3/uL (1.2-3.4); Absolute Monocyte Count 0.31 10^3/uL (0.1-0.8); Absolute Neutrophil Count 5.35 10^3/uL (1.2-6.7); HCT 31.9 % (36.0-46.0); HGB 11.2 g/dL (11.2-15.7); Immature Grans % 0.8; MCH 30.3 pg (27.0-33.0); MCHC 35.1 % (32.0-36.0); MCV 86.2 fL (80-95); MPV 9.6 fL (8.0-11.0); Neutrophils % 87.2; Nucleated RBC 0 %; Platelet Count 281 10^3/uL (130-400); RDW 12.4 % (11.7-14.6); RDW-SD 39.6 fL; WBC 6.14 10^3/uL (4.4-10.8)
[2020-11-18] MEDS: Acetaminophen 325 MG TAB PO (06:49)
[2020-11-18 07:04] LABS: ALT 14 U/L (14-59); AST 9 U/L (15-37); Albumin 2.3 g/dL (3.4-5.0); Alkaline Phosphatase 77 U/L (46-116); BUN 66 mg/dL (7-18); Bilirubin, Direct 0.1 mg/dL (0.0-0.2); Bilirubin, Total 0.4 mg/dL (0.2-1.0); C-Reactive Protein 2.65 mg/dL (0.0-0.3); CREATININE 2.1 mg/dL (0.55-1.02); Calcium 8.8 mg/dL (8.5-10.1); Chloride 104 mmol/L (98-107); Estimated GFR 24.02 (mL/min/1.73m2); Glucose 216 mg/dL (74-106); Magnesium 1.8 mg/dL (1.8-2.4); Potassium 4.3 mmol/L (3.5-5.1); Sodium 136 mmol/L (136-145); Total Protein 6.3 g/dL (6.4-8.2)
[2020-11-18 07:23] LABS: D-Dimer 449 ng/mlFEU (<500)
[2020-11-18 07:30] LABS: Ferritin 248 ng/mL (8-252)
[2020-11-18 07:51] LABS: Procalcitonin < 0.1 ng/mL
[2020-11-18] MEDS: Ascorbic Acid 500 MG TAB 1000 MG PO ×2 (08:45→20:11)
[2020-11-18] MEDS: Aspirin E.C. 81 MG TABEC PO (08:45)
[2020-11-18] MEDS: Cetirizine 10 MG TAB PO (08:50)
[2020-11-18] MEDS: buPROPion-CR 100 MG TABCR PO (08:50)
[2020-11-18] MEDS: Atorvastatin 40 MG TAB PO (08:50)
[2020-11-18] MEDS: Cyanocobalamin 500 MCG TAB 1000 MCG PO (08:50)
[2020-11-18] MEDS: Benzonatate 200 MG CAP PO ×3 (08:50→20:10)
[2020-11-18] MEDS: Cholecalciferol (Vitamin D3) 1,000 UNIT TAB 2000 UNITS PO (08:50)
[2020-11-18] MEDS: Dexamethasone 10 MG/ML VIAL 6 MG IVP (09:18)
[2020-11-18] MEDS: Dexlansoprazole 30 MG CAP 60 MG PO (09:19)
[2020-11-18] MEDS: Doxycycline Hyclate 100 MG CAP PO ×2 (09:20→20:11)
[2020-11-18] MEDS: DULoxetine 30 MG CAP 90 MG PO (09:20)
[2020-11-18] MEDS: Fluticasone NASAL SPRAY 16 GM BTL NS (09:20)
[2020-11-18] MEDS: Insulin Aspart 300 UNITS/3 ML PEN SC ×3 (09:21→21:49)
[2020-11-18] MEDS: Insulin Aspart 300 UNITS/3 ML PEN 10 UNITS SC ×2 (09:21→12:20)
[2020-11-18] MEDS: Lisinopril 5 MG TAB PO (09:22)
[2020-11-18] MEDS: Insulin Glargine 300 UNITS/3 ML PEN 60 UNITS SC (09:22)
[2020-11-18] MEDS: Magnesium Oxide 400 MG TAB PO ×2 (09:23→20:10)
[2020-11-18] MEDS: Zinc Sulfate 220 MG TAB PO (09:23)
[2020-11-18] MEDS: predniSONE 10 MG TAB PO (09:23)
[2020-11-18] MEDS: Ipratropium/Albuterol 4 GM 120 PUFF INH IH ×4 (09:33→20:13)
--- NOTE | 2020-11-18 09:58 | PDOC.CMPRO ---
- If Service Date Differs Date of service: 11/18/20 Time of Service: 09:59 Care Management Progress Note S/O: Nimisha continues to be closely monitored at m/s level of care. She is requiring O2 at this time. Per report, she was on 3L this morning, at 92%. Per report, Nimisha feels better this morning, and is able to eat as her appetite has returned. Pt evaluated her and feels that she will benefit from PT at this time. CM will continue to follow. A: 60 year old female admitted to [facility] 11/15/20 for Covid-19 Pneumonia P: Nimisha will discharge home when ready per MD. She will follow up with her PCP and plan of care as prescribed. She will transport home via private vehicle with her daughter, Denae. CM will continue to assist with discharge planning.
--- NOTE | 2020-11-18 11:08 | PT.INTREAT ---
Date of service: 11/18/20 Time of Service: 10:35 PT Notes Visit Reasons: COVID-19 PNEUMONIA [facility] Date: 11/18/2020 PRECAUTIONS: Fall, COVID+ SUBJECTIVE: Nimisha states that she feels very tired and is wiped out. She is agreeable to participating in PT. OBJECTIVE: Patient was moved to different room last night, FWW and gait belt not in patient's current room, and due to COVID + precautions, I did not leave the room to get these items. Will give to attending nurse to put into patient's room today. PAIN: Patient c/o B hip pain with ther ex. BED MOBILITY/TRANSFERS Supine-sit: S Sit-supine: I Sit-stand: S Stand-sit: S GAIT Assistive Device: No AD Weight bearing: Full Assist: SBA Distance: 3 side steps up the bed to the R THEREX: Patient was instructed in an UE and LE strengthening exercise program, performed in a supine position, as per flow sheet. She c/o B hip pain with hip abduction and heel slide exercises. ASSESSMENT: Patient tolerated session with c/o B hip pain with ther ex. PLAN: Continue with global strengthening as well as transfer and gait training for improved mobility and improved activity tolerance. TREATMENT CODE/TIME: 30 minutes; 26930, 24433 (10:35)
--- NOTE | 2020-11-18 14:15 | W.PM.PROGNOT ---
Date of Service Date of service: 11/18/20 Time of Service: 14:15 Assessment and Plan Assessment and plan (1) Pneumonia due to COVID-19 virus: Status: Acute Assessment and plan: Improving on remdesivir and decadron, vitamin C, D, zinc, pepcid, melatonin. Continue antitussives, inhalers. Monitor oxygenation closely. unclear as to reasoning for full dose lovenox 1 mg/kg SC Q12h. Her d-dimer on admission was elevated at 1344 but still below the threshold of 2500 for initiation of full dose lovenox and she had no evidence for DVT. She did not undergo screen venous duplex nor CTA of her chest on admission. Her d-dimer has rapidly returned to normal. I would be inclined to use intermediate dosing of 40 mg SC Q12h. Proning. still requiring oxygen at 3 LPM NC. This is slightly increased from yesterday when she was on 1.5 Lpm. She needs to improve her recruitment by getting out of bed and either proning or lying from side to side and use of her I.S. (2) Acute respiratory failure with hypoxia: Status: Acute Assessment and plan: As above O2 requirement is slightly worse today probably d/t poor lung recruitment. (3) COPD (chronic obstructive pulmonary disease): Status: Chronic Assessment and plan: Continue home fluticasone in addition to scheduled combivent and prn albuterol here. Patient was not on home oxygen prior to her Covid-19. (4) Type 2 diabetes mellitus: Status: Acute Assessment and plan: Increase long acting insulin (will add 10 units lantus QHS to the am lantus); continue schedule prandial insulin in addition to SSI. Add NPH to her regimen at rate of 2 to 3 mg/ glucocorticoid equivalent (ie. she is on decadron 6 mg which is equivalent to 40 mg prednisone per day which would amount to 80 to 120 units of NPH/day divided twice per day. I will add NPH 50 units Q12h while on decadron. Also she does not need to be on prednisone and decadron both. She apparently was on prednisone 10 mg daily at home for temporal arteritis. (5) Chronic kidney disease: Status: Chronic Assessment and plan: Cr 2.1 this am. Stable. will monitor. cont. remdesivir but watch renal function closely. Discussed with patient and pharmacy. The patient is willing to accept remdesivir today fully aware and understanding risks of toxicity. Continue remdesivir. Encourage PO water intake. Will monitor carefully while on remdesivir (6) Open wound of left axillary region: Status: Acute Assessment and plan: Present on admission, already undergoing treatment with doxycycline per PCP prior to presentation here. Continue doxycycline (MRSA), dry sterile dressing. (7) DVT prophylaxis: Status: Acute Assessment and plan: On Full dose lovenox (renally adjusted) however, I think that she can be decreased to intermediate dosing of 40 mg SC Q12h. (8) Discharge planning issues: Status: Acute Assessment and plan: Full code. Transfer out of ICU. Subjective Subjective Interval history since last seen: Patient states her cough is productive of grayish mucus. No hemoptysis. Still has dysguesia and anosmia. Not dyspneic at rest but just feels fatigued. She has not been doing prone positioning and not been doing side to side on a regular basis (she states that she does not like to face the window w/ the sun in her face and also blames not being able to get pillows for her back). Her IS was over on the wall by the window out of her reach. I educated her on the importance of getting out of bed and sitting up in the chair couple hours for 2 to 3 x per day and either prone positioning or lying from side to side even if only for 15 to 30 minutes at a time in order for recruitment of alveoli. I placed her IS where she can reach this and emphasized a need to use this. I also gave her a mask to wear whenever anyone comes into the room. Exam Narrative Exam Narrative: Obese female in no acute respiratory distress. Lying on her back in Semifowler position. Lungs w/ bibasilar rales; no wheezes nor rhonchi. Upper coyne are clear Cor: RRR Abdomen: obese, soft, NT Legs w/out edema or calf pain or swelling. Objective Last Vital Signs Temp 36.4 C L 11/18/20 12:21 Pulse 100 H 11/18/20 12:21 Resp 20 11/18/20 12:21 BP 117/75 11/18/20 12:21 Pulse Ox 95 11/18/20 12:21 Laboratory Results - last 24 hr 11/18/20 11/18/20 11/18/20 06:35 06:35 06:35 WBC 6.14 RBC 3.70 L Hgb 11.2 Hct 31.9 L MCV 86.2 D MCH 30.3 MCHC 35.1 RDW 12.4 Plt Count 281 MPV 9.6 Immature Gran % 0.8 Neutrophils % 87.2 Lymphocytes % 7.0 Monocytes % 5.0 Eosinophils % 0.0 Basophils % 0.0 Nucleated RBC % 0 Absolute Neutrophils 5.35 Absolute Lymphocytes 0.43 L Absolute Monocytes 0.31 Absolute Eosinophils 0.00 Absolute Basophils 0.00 D-Dimer VBG Lactate 0.9 Sodium 136 Potassium 4.3 Chloride 104 Carbon Dioxide 19.0 L Anion Gap 13.0 H BUN 66 H Creatinine 2.1 H Estimated GFR/1.73 m2 24.02 Glucose 216 H Calcium 8.8 Magnesium 1.8 Ferritin 248 Total Bilirubin 0.4 Conjugated Bilirubin 0.1 AST 9 L ALT 14 Alkaline Phosphatase 77 C-Reactive Protein 2.65 H Total Protein 6.3 L Albumin 2.3 L Procalcitonin < 0.1 11/18/20 06:35 WBC RBC Hgb Hct MCV MCH MCHC RDW Plt Count MPV Immature Gran % Neutrophils % Lymphocytes % Monocytes % Eosinophils % Basophils % Nucleated RBC % Absolute Neutrophils Absolute Lymphocytes Absolute Monocytes Absolute Eosinophils Absolute Basophils D-Dimer 449 VBG Lactate Sodium Potassium Chloride Carbon Dioxide Anion Gap BUN Creatinine Estimated GFR/1.73 m2 Glucose Calcium Magnesium Ferritin Total Bilirubin Conjugated Bilirubin AST ALT Alkaline Phosphatase C-Reactive Protein Total Protein Albumin Procalcitonin
[2020-11-18] MEDS: Cyclobenzaprine 10 MG TAB PO (16:02)
[2020-11-18] MEDS: Enoxaparin 40 MG/0.4 ML SYR SC (17:09)
[2020-11-18] MEDS: Normal Saline Flush 10 ML SYR IVP (17:10)
[2020-11-18] MEDS: Insulin NPH-Human 300 UNITS/3 ML PEN 50 UNIT SC (20:19)
[2020-11-18] MEDS: Melatonin 3 MG TAB PO (21:46)
[2020-11-18] MEDS: Famotidine 20 MG TAB PO (21:46)
[2020-11-18] MEDS: Insulin Glargine 300 UNITS/3 ML PEN 10 UNITS SC (21:48)
[2020-11-18] MEDS: Mylanta Suspension 30 ML CUP PO (22:16)
[2020-11-19] VITALS (12 sets, daily range): BP systolic 106–135; BP diastolic 61–83; PULSE 91–111; RESP 16–24; TEMP 36.1–37; O2SAT 92–98
[2020-11-19] MEDS: Enoxaparin 40 MG/0.4 ML SYR SC ×2 (04:18→16:11)
--- NOTE | 2020-11-19 05:58 | NUR.NOTE ---
Nursing Note: Reiterated to patient importance of proning, repositioning and use of incentive spirometry. Patient states she cannot prone because of back injury. Patient is monitored and seen to turn to her side. O2 Sat 90-92% @ 2LPM when asleep and 95% when awake
[2020-11-19 07:20] LABS: Anion Gap 11.4 mmol/L (3-11); BUN 67 mg/dL (7-18); CO2 22.6 mmol/L (21.0-32.0); CREATININE 1.9 mg/dL (0.55-1.02); Calcium 8.9 mg/dL (8.5-10.1); Chloride 106 mmol/L (98-107); Estimated GFR 26.96 (mL/min/1.73m2); Glucose 213 mg/dL (74-106); Potassium 4.4 mmol/L (3.5-5.1); Sodium 140 mmol/L (136-145)
[2020-11-19] MEDS: Cetirizine 10 MG TAB PO (09:23)
[2020-11-19] MEDS: DULoxetine 30 MG CAP 90 MG PO (09:24)
[2020-11-19] MEDS: Benzonatate 200 MG CAP PO ×3 (09:24→20:40)
[2020-11-19] MEDS: Docusate Sodium 100 MG CAP 200 MG PO (09:24)
[2020-11-19] MEDS: Zinc Sulfate 220 MG TAB PO (09:25)
[2020-11-19] MEDS: Doxycycline Hyclate 100 MG CAP PO ×2 (09:25→20:40)
[2020-11-19] MEDS: Ascorbic Acid 500 MG TAB 1000 MG PO ×2 (09:26→20:31)
[2020-11-19] MEDS: Aspirin E.C. 81 MG TABEC PO (09:26)
[2020-11-19] MEDS: Cholecalciferol (Vitamin D3) 1,000 UNIT TAB 2000 UNITS PO (09:26)
[2020-11-19] MEDS: buPROPion-CR 100 MG TABCR PO (09:27)
[2020-11-19] MEDS: Dexlansoprazole 30 MG CAP 60 MG PO (09:28)
[2020-11-19] MEDS: Cyanocobalamin 500 MCG TAB 1000 MCG PO (09:30)
[2020-11-19] MEDS: Atorvastatin 40 MG TAB PO (09:30)
[2020-11-19] MEDS: Insulin Aspart 300 UNITS/3 ML PEN 10 UNITS SC ×3 (09:31→17:17)
[2020-11-19] MEDS: Insulin Aspart 300 UNITS/3 ML PEN SC ×4 (09:32→22:32)
[2020-11-19] MEDS: Magnesium Oxide 400 MG TAB PO ×2 (09:34→20:39)
[2020-11-19] MEDS: Lisinopril 5 MG TAB PO (09:34)
[2020-11-19] MEDS: Fluticasone NASAL SPRAY 16 GM BTL NS (09:35)
[2020-11-19] MEDS: Insulin Glargine 300 UNITS/3 ML PEN 60 UNITS SC (09:37)
[2020-11-19] MEDS: Insulin NPH-Human 300 UNITS/3 ML PEN 50 UNIT SC ×2 (09:40→20:41)
[2020-11-19] MEDS: Ipratropium/Albuterol 4 GM 120 PUFF INH IH ×4 (09:42→20:43)
[2020-11-19] MEDS: Dexamethasone 10 MG/ML VIAL 6 MG IVP (09:43)
[2020-11-19] MEDS: Normal Saline Flush 10 ML SYR IVP ×3 (09:48→20:30)
--- NOTE | 2020-11-19 11:30 | PT.INTREAT ---
Date of service: 11/19/20 Time of Service: 11:30 PT Notes Visit Reasons: COVID-19 PNEUMONIA Inpatient Physical Therapy Treatment Note [facility] Date: 11/19/2020 PRECAUTIONS: COVID-19, back pain SUBJECTIVE: Nimisha states that she is having increased back pain today. She reports that she continues to feel very fatigued, although has been able to transfer from bed<>commode and bed<>chair independently, and feels safe doing so. OBJECTIVE: PAIN: Patient c/o LBP with gait training BED MOBILITY/TRANSFERS Supine-sit: I Sit-stand: S Stand-sit: S Bed-Chair: S Chair-bed: S GAIT Assistive Device: FWW Weight bearing: Full Assist: S Distance: 30' + 10' Deviation: Increased fatigue, SOB THEREX: Patient was instructed in an UE and LE strengthening program, completed while seated at EOB, as per flow sheet. TOILETING: Patient toileted independently ASSESSMENT: Patient tolerated session with c/o increased fatigue with gait training. She was able to demonstrate independence with bed mobility and toileting today. PLAN: Continue with gait and transfer training as well as global strengthening and conditioning for improved activity tolerance. TREATMENT CODE/TIME: 40 minutes; 06975 x2, 43799 (11:30)
[2020-11-19] MEDS: Docusate Sodium 100 MG CAP PO (12:59)
--- NOTE | 2020-11-19 14:06 | W.PM.PROGNOT ---
Date of Service Date of service: 11/19/20 Time of Service: 14:06 Assessment and Plan Assessment and plan (1) Pneumonia due to COVID-19 virus: Status: Acute Assessment and plan: Slowly improving. Did have a little bit of a setback this afternoon after getting up to the bathroom and trying to have a BM. She now appears to have recovered. She does get tachycardic with activity. Initially was going to stop her telemetry but I think we will continue the telemetry for now as this can assist the nurses and monitoring and if she is having any kind of respiratory distress from activity. She remains on remdesivir day #4 and Decadron day #5. Continue all other ancillary medications including zinc vitamin D vitamin C atorvastatin and Pepcid. Continue monitoring with continuous pulse oximetry and telemetry. Encourage pulmonary toiletry. Her incentive spirometer was at the bedside where she could reach it today. (2) Acute respiratory failure with hypoxia: Status: Acute Assessment and plan: As above (3) COPD (chronic obstructive pulmonary disease): Status: Chronic Assessment and plan: Continue home fluticasone in addition to scheduled combivent and prn albuterol here. Patient was not on home oxygen prior to her Covid-19. (4) Type 2 diabetes mellitus: Status: Acute Assessment and plan: Continue basal bolus insulin with Lantus and NovoLog including carb coverage and corrective sliding scale. Continue NPH while she is on steroids. (5) Chronic kidney disease: Status: Chronic Assessment and plan: Azotemia renal function creatinine is 1.9 and BUN is 67. Will encourage oral fluids. However she has poor appetite. Intake is been poor the last 24 hours only 740 mL yesterday and 240 mL so far today. I will restart IV fluids at a low rate. (6) Open wound of left axillary region: Status: Acute Assessment and plan: This appears to have been a hidradenitis which is healing; finish out her doxycycline. (7) DVT prophylaxis: Status: Acute Assessment and plan: On Full dose lovenox (renally adjusted) however, I think that she can be decreased to intermediate dosing of 40 mg SC Q12h. (8) Discharge planning issues: Status: Acute Assessment and plan: Full code. She may need P.T. upon discharge d/t severe generalized deconditioning from her COVID-19 pneumonia but she also was probably in general deconditioned shape prior to her infection. Subjective Subjective Interval history since last seen: Patient is more cooperative today with moving around. She is not proning because it causes her back problems however she has been rotating from side to side when she is lying in bed and she has been trying to sit up more. She has been willing to get up to the chair. Her nurse reports that when she got up to go to the bathroom she got very short of breath and took a while for her to recover. Eventually she did recover her oxygen saturation went from the high 80s to the high 90s. Currently her O2 saturations 98 to 99% on 2 L/min per nasal cannula. She reports coughing up some black mucus. She remains afebrile. She is on doxycycline which she had been prescribed prior to developing COVID-19 and this was prescribed to treat left axillary hidradenitis. This is improving w/ no drainage and no pain or redness. She was started on this couple days prior to admission. I will have her finish out 7days of antibiotics. She is currently on day #4 of Remdesevir and day #5 of dexamethasone. I explained to her that recovery from COVID-19 is slow and to expect fatigue particulary w/ activity. She has constipation and has accepted the use of docusate but declined the use of Miralax. I told her that she ought to use the laxative because she does not need to be straining to have a BM. Exam Narrative Exam Narrative: Obese female lying in bed semifowler position in no respiratory distress but she does appear to be fatigued. Not using accessory respiratory muscles. SPO2 98 to 99% on 2 L/min per nasal cannula Lungs are clear to auscultation anteriorly posteriorly she has some fine bibasilar rales no rhonchi or wheezes. Heart regular rate and rhythm. Abdomen obese soft nontender normal bowel sounds nondistention. Lower extremities without peripheral cyanosis or edema no calf tenderness or swelling. L upper extermity w/ small area of salmon colored skin w/ pinpoint lesion that appears to have been an infected follicle or gland but no drainage and no erythema nor any tenderness Objective Last Vital Signs Temp 36.4 C L 11/19/20 13:17 Pulse 111 H 11/19/20 13:17 Resp 24 11/19/20 13:17 BP 106/61 03/28/21 13:17 Pulse Ox 96 11/19/20 13:17 Laboratory Results - last 24 hr 11/19/20 07:00 Sodium 140 Potassium 4.4 Chloride 106 Carbon Dioxide 22.6 Anion Gap 11.4 H BUN 67 H Creatinine 1.9 H Estimated GFR/1.73 m2 26.96 Glucose 213 H Calcium 8.9
[2020-11-19] MEDS: Lactated Ringers 1,000 ML 85 ML IV (16:09)
--- NOTE | 2020-11-19 19:14 | PDOC.CMPRO ---
- If Service Date Differs Date of service: 11/19/20 Time of Service: 19:14 Care Management Progress Note S/O: Nimisha continues to be closely monitored. CM is not visiting the patient in the room as she is Covid positive and on Covid precautions. She has been making slow improvement, but is still requiring 2L of O2 at this time. She is working with PT, and may need continued PT at discharge, depending on how much she improves prior to discharge. CM will continue to follow. A: 60 year old female admitted to [facility] 11/15/20 for Covid-19 Pneumonia P: Nimisha will discharge home when ready per MD. She will follow up with her PCP and plan of care as prescribed. She will transport home via private vehicle with her daughter, Denae. CM will continue to assist with discharge planning.
[2020-11-19] MEDS: Melatonin 3 MG TAB PO (22:30)
[2020-11-19] MEDS: Famotidine 20 MG TAB PO (22:30)
[2020-11-19] MEDS: Senna TAB 1 TAB PO (22:30)
[2020-11-19] MEDS: Insulin Glargine 300 UNITS/3 ML PEN 10 UNITS SC (22:33)
[2020-11-20] VITALS (15 sets, daily range): BP systolic 118–144; BP diastolic 70–84; PULSE 80–109; RESP 18–20; TEMP 36–36.6; O2SAT 93–98
[2020-11-20] MEDS: Lactated Ringers 1,000 ML 85 ML IV ×2 (02:49→17:34)
[2020-11-20] MEDS: Enoxaparin 40 MG/0.4 ML SYR SC ×2 (02:50→16:22)
[2020-11-20] MEDS: DULoxetine 30 MG CAP 90 MG PO (08:53)
[2020-11-20] MEDS: Ascorbic Acid 500 MG TAB 1000 MG PO ×2 (08:54→20:19)
[2020-11-20] MEDS: Cyanocobalamin 500 MCG TAB 1000 MCG PO (08:54)
[2020-11-20] MEDS: Dexlansoprazole 30 MG CAP 60 MG PO (08:54)
[2020-11-20] MEDS: buPROPion-CR 100 MG TABCR PO (08:54)
[2020-11-20] MEDS: Benzonatate 200 MG CAP PO ×3 (08:54→20:20)
[2020-11-20] MEDS: Cetirizine 10 MG TAB PO (08:55)
[2020-11-20] MEDS: Doxycycline Hyclate 100 MG CAP PO ×2 (08:55→20:20)
[2020-11-20] MEDS: Docusate Sodium 100 MG CAP 200 MG PO (08:55)
[2020-11-20] MEDS: Zinc Sulfate 220 MG TAB PO (08:55)
[2020-11-20] MEDS: Magnesium Oxide 400 MG TAB PO ×2 (08:56→20:20)
[2020-11-20] MEDS: Atorvastatin 40 MG TAB PO (08:56)
[2020-11-20] MEDS: Cholecalciferol (Vitamin D3) 1,000 UNIT TAB 2000 UNITS PO (08:56)
[2020-11-20] MEDS: Aspirin E.C. 81 MG TABEC PO (08:56)
[2020-11-20] MEDS: Lisinopril 5 MG TAB PO (08:58)
[2020-11-20] MEDS: Dexamethasone 10 MG/ML VIAL 6 MG IVP (08:58)
[2020-11-20] MEDS: Ipratropium/Albuterol 4 GM 120 PUFF INH IH ×4 (08:59→17:15)
[2020-11-20] MEDS: Fluticasone NASAL SPRAY 16 GM BTL NS (08:59)
[2020-11-20] MEDS: Insulin Glargine 300 UNITS/3 ML PEN 60 UNITS SC (09:31)
[2020-11-20] MEDS: Insulin NPH-Human 300 UNITS/3 ML PEN 50 UNIT SC (09:32)
[2020-11-20] MEDS: Insulin Aspart 300 UNITS/3 ML PEN 10 UNITS SC (09:33)
[2020-11-20 12:13] LABS: Abs Immature Grans 0.16 10^3/uL (0.0-0.06); Absolute Basophil Count 0.02 10^3/uL (0.0-0.2); Absolute Lymphocyte Count 0.51 10^3/uL (1.2-3.4); Absolute Monocyte Count 0.57 10^3/uL (0.1-0.8); Basophils % 0.2; Eosinophils % 0.3; HCT 34.7 % (36.0-46.0); HGB 11.6 g/dL (11.2-15.7); Immature Grans % 1.3; Lymphocytes % 4.3; MCHC 33.4 % (32.0-36.0); MCV 89.7 fL (80-95); MPV 9.7 fL (8.0-11.0); Monocytes % 4.8; Neutrophils % 89.1; Nucleated RBC 0 %; Platelet Count 339 10^3/uL (130-400); RBC 3.87 10^6/uL (3.93-5.22); RDW 12.6 % (11.7-14.6); RDW-SD 41.2 fL; WBC 11.93 10^3/uL (4.4-10.8)
[2020-11-20 12:16] LABS: Absolute Eosinophil Count 0.04 10^3/uL (0.0-0.7); Absolute Neutrophil Count 10.63 10^3/uL (1.2-6.7)
[2020-11-20 12:17] LABS: ALT 28 U/L (14-59); AST 16 U/L (15-37); Albumin 2.3 g/dL (3.4-5.0); Alkaline Phosphatase 82 U/L (46-116); Anion Gap 7.2 mmol/L (3-11); BUN 68 mg/dL (7-18); Bilirubin, Total 0.3 mg/dL (0.2-1.0); C-Reactive Protein 0.88 mg/dL (0.0-0.3); CO2 25.8 mmol/L (21.0-32.0); CREATININE 1.8 mg/dL (0.55-1.02); Calcium 8.9 mg/dL (8.5-10.1); Chloride 107 mmol/L (98-107); Potassium 4.7 mmol/L (3.5-5.1); Sodium 140 mmol/L (136-145); Total Protein 6.2 g/dL (6.4-8.2)
[2020-11-20 12:27] LABS: Glucose 89 mg/dL (74-106)
[2020-11-20 12:39] LABS: D-Dimer 347 ng/mlFEU (<500)
[2020-11-20 13:51] LABS: Procalcitonin < 0.1 ng/mL
--- NOTE | 2020-11-20 14:16 | NUR.NOTE ---
AT 12PM patient started complaining of increase SOB, and finding it hard to breathe, SPO2 was 95%1L upon auscultation crackles heard to lower posterior bases- patient was titrated up to 2L of o2 via cannula sating 96%. IVF was paused until further directions are given. Charge Nurse aware who will inform MD.
--- NOTE | 2020-11-20 15:33 | W.PM.PROGNOT ---
Date of Service Date of service: 11/20/20 Time of Service: 15:33 Assessment and Plan Assessment and plan (1) Pneumonia due to COVID-19 virus: Status: Acute Assessment and plan: Today is day #6 of remdesivir and taste #6 of Decadron. She is improving but ever so slowly. Her inflammatory markers have shown improvement. Her WBC count did increase to 11,900 but I expect this is demargination from her steroids. Her D-dimer has improved as well as her CRP. We will continue the remdesivir for a few more days along with her Decadron. (2) Acute respiratory failure with hypoxia: Status: Acute Assessment and plan: As above (3) COPD (chronic obstructive pulmonary disease): Status: Chronic Assessment and plan: Continue home fluticasone in addition to scheduled combivent and prn albuterol here. Patient was not on home oxygen prior to her Covid-19. (4) Type 2 diabetes mellitus: Status: Acute Assessment and plan: Patient had hypoglycemia which responded to oral dextrose. As noted above I decreased her Lantus and got rid of her scheduled doses of NovoLog with meals as well as a reduction in her NPH. (5) Chronic kidney disease: Status: Chronic Assessment and plan: Continue IV fluid hydration and a low rate. 85 mL/h should provide 2 L of fluid per day. Repeat BMP in the morning (6) Open wound of left axillary region: Status: Resolved Assessment and plan: Left axillary wound appears to be resolved. Think we can discontinue doxycycline at this point (7) DVT prophylaxis: Status: Acute Assessment and plan: Only on intermediate dosing of enoxaparin 40 mg subcutaneously every 12 hours. (8) Discharge planning issues: Status: Acute Assessment and plan: Full code. She may need P.T. upon discharge d/t severe generalized deconditioning from her COVID-19 pneumonia but she also was probably in general deconditioned shape prior to her infection. Subjective Subjective Interval history since last seen: Patient is little more fatigued this afternoon. She experienced hypoglycemia this afternoon in which her blood sugar dropped down to 52. I decreased her insulin dosing including the NPH that I prescribed to cover her Decadron. I discontinued scheduled doses of NovoLog with her meals we will use a sliding scale and I cut her Lantus dose in half down to 30 units daily and discontinue the nighttime Lantus. With respect to her oxygenation she is saturating at 97% on 2 L/min per nasal cannula. Cough is minimal and nonproductive. There is no chest discomfort. With respect to her labs her D-dimer continues to decline at 347. Her CRP continues to decline is 0.88 from a peak of 12.56. Her LFTs remain normal. Electrolytes are normal. BUN and creatinine remain elevated at 68 and 1.8 respectively. However this is a slight improvement from her creatinine a couple days ago. I think she continues to need IV fluids as she is not taking adequate oral intake. Nursing staff was concerned because of reported increased rales. I think her mckeon are dry rales secondary to her Covid pneumonia. Do not feel that she is in fluid overload. Her cumulative balance is actually net -1400 mL. Her oral intake fall of yesterday was only recorded 600 mL. Not sure how accurate this is. Nevertheless her BUN and creatinine suggest that she still prerenal azotemia. She denies any chest pain and has had no fevers and has no nausea or vomiting. She finally had a bowel movement with the help of some laxatives and stool softeners. Exam Narrative Exam Narrative: Obese female who is alert and oriented but appears to be tired. Lungs with scattered dry rales no rhonchi or wheezing Heart regular rate and rhythm Abdomen is obese soft nontender no distention normal bowel sounds Lower extremities without peripheral edema no calf tenderness or swelling. Examination hand shows no edema of her hands or wrists. Examination of her neck shows no JVD and no HJR. Objective Last Vital Signs Temp 36.4 C L 11/20/20 12:00 Pulse 80 11/20/20 12:00 Resp 20 11/20/20 12:00 BP 120/70 11/20/20 12:00 Pulse Ox 95 11/20/20 12:12 Laboratory Results - last 24 hr 11/20/20 11/20/20 11/20/20 12:00 12:00 12:00 WBC 11.93 H RBC 3.87 L Hgb 11.6 Hct 34.7 L MCV 89.7 MCH 30.0 MCHC 33.4 RDW 12.6 Plt Count 339 MPV 9.7 Immature Gran % 1.3 Neutrophils % 89.1 Lymphocytes % 4.3 Monocytes % 4.8 Eosinophils % 0.3 Basophils % 0.2 Nucleated RBC % 0 Absolute Neutrophils 10.63 H Absolute Lymphocytes 0.51 L Absolute Monocytes 0.57 Absolute Eosinophils 0.04 Absolute Basophils 0.02 D-Dimer 347 Sodium 140 Potassium 4.7 Chloride 107 Carbon Dioxide 25.8 Anion Gap 7.2 BUN 68 H Creatinine 1.8 H Estimated GFR/1.73 m2 28.70 Glucose 89 D Calcium 8.9 Total Bilirubin 0.3 AST 16 ALT 28 Alkaline Phosphatase 82 C-Reactive Protein 0.88 H Total Protein 6.2 L Albumin 2.3 L Procalcitonin 11/20/20 12:00 WBC RBC Hgb Hct MCV MCH MCHC RDW Plt Count MPV Immature Gran % Neutrophils % Lymphocytes % Monocytes % Eosinophils % Basophils % Nucleated RBC % Absolute Neutrophils Absolute Lymphocytes Absolute Monocytes Absolute Eosinophils Absolute Basophils D-Dimer Sodium Potassium Chloride Carbon Dioxide Anion Gap BUN Creatinine Estimated GFR/1.73 m2 Glucose Calcium Total Bilirubin AST ALT Alkaline Phosphatase C-Reactive Protein Total Protein Albumin Procalcitonin < 0.1
--- NOTE | 2020-11-20 16:14 | PT.INTREAT ---
Date of service: 11/20/20 Time of Service: 16:14 PT Notes Visit Reasons: COVID-19 PNEUMONIA [facility] Date: 11/20/2020 PRECAUTIONS: Fall. COVID-19 protocol. SUBJECTIVE: Nimisha states that she is so tired and is not sure whether she can do anything this afternoon. Complains of being short of breath with littlest of effort. Complained of being shaky in her legs during transfers. So fatigued she requested nurse Radha to do perineal care after bowel movement. OBJECTIVE: XIE. Movement slow. Appeared very shaky standing up. Desaturated to 76% on 4 L via NC with just standing from bedside commode to transfer back to bed. PAIN: Pain report on upper abdominal area in both quadrants. Reported legs being achy while standing. BED MOBILITY/TRANSFERS Sit-supine: I Supine-sit: S Sit-stand: S Stand-sit: S GAIT Assistive Device: FWW Weight bearing: Full Assist: SBA Distance: 4 steps + 3 sidesteps with desatiration to 76% at 4 L of oxygen/min Deviation: Shaky, unstable but only required PT to stabilize walker THEREX: Desaturated to 88% with two bed level exercises completion. See ex flow sheet. ASSESSMENT: Patient continues to demonstrate significant decrease in activity tolerance with increasing XIE even with small effort. Continues to be limited by breathlessness and generalized deconditioning. PLAN: Will continue to progress mobility training as tolerated. TREATMENT CODE/TIME: 39905 x 20 minutes, 19682 x 14 minutes beginning at 16:14 PM. CC:
--- NOTE | 2020-11-20 16:37 | CMPROGNOTE_ITS ---
Care Management Progress Note S/O: Nimisha continues to be closely monitored. CM is not visiting the patient in the room as she is Covid positive and on Covid precautions. She has been making slow improvement, but is still requiring 2L of O2 at this time. She is working with PT, and may need continued PT at discharge, depending on how much she improves prior to discharge. CM will continue to follow. A: 60 year old female admitted to [facility] 11/15/20 for Covid-19 Pneumonia P: Nimisha will discharge home when ready per MD. She will follow up with her PCP and plan of care as prescribed. She will transport home via private vehicle with her daughter, Denae. CM will continue to assist with discharge planning.
[2020-11-20] MEDS: Insulin Aspart 300 UNITS/3 ML PEN SC (17:37)
[2020-11-20] MEDS: Normal Saline Flush 10 ML SYR IVP (20:23)
[2020-11-20] MEDS: Insulin NPH-Human 300 UNITS/3 ML PEN 25 UNIT SC (20:26)
[2020-11-20] MEDS: Senna TAB 1 TAB PO (20:52)
[2020-11-20] MEDS: Famotidine 20 MG TAB PO (20:53)
[2020-11-20] MEDS: Melatonin 3 MG TAB PO (20:53)
[2020-11-21] VITALS (16 sets, daily range): BP systolic 104–126; BP diastolic 58–70; PULSE 94–112; RESP 18–20; TEMP 35.6–37.2; O2SAT 93–98
[2020-11-21] MEDS: Enoxaparin 40 MG/0.4 ML SYR SC ×2 (04:24→16:38)
[2020-11-21] MEDS: Lactated Ringers 1,000 ML 85 ML IV (05:32)
[2020-11-21] MEDS: Ipratropium/Albuterol 4 GM 120 PUFF INH IH ×4 (07:48→22:02)
[2020-11-21] MEDS: Cetirizine 10 MG TAB PO (09:13)
[2020-11-21] MEDS: Dexlansoprazole 30 MG CAP 60 MG PO (09:13)
[2020-11-21] MEDS: buPROPion-CR 100 MG TABCR PO (09:13)
[2020-11-21] MEDS: Docusate Sodium 100 MG CAP 200 MG PO (09:14)
[2020-11-21] MEDS: Ascorbic Acid 500 MG TAB 1000 MG PO ×2 (09:14→20:55)
[2020-11-21] MEDS: Zinc Sulfate 220 MG TAB PO (09:14)
[2020-11-21] MEDS: Cyanocobalamin 500 MCG TAB 1000 MCG PO (09:14)
[2020-11-21] MEDS: Lisinopril 5 MG TAB PO (09:15)
[2020-11-21] MEDS: Cholecalciferol (Vitamin D3) 1,000 UNIT TAB 2000 UNITS PO (09:15)
[2020-11-21] MEDS: Magnesium Oxide 400 MG TAB PO ×2 (09:15→20:55)
[2020-11-21] MEDS: Benzonatate 200 MG CAP PO ×3 (09:15→20:55)
[2020-11-21] MEDS: Atorvastatin 40 MG TAB PO (09:16)
[2020-11-21] MEDS: Aspirin E.C. 81 MG TABEC PO (09:16)
[2020-11-21] MEDS: DULoxetine 30 MG CAP 90 MG PO (09:16)
[2020-11-21] MEDS: Doxycycline Hyclate 100 MG CAP PO (09:16)
[2020-11-21] MEDS: Dexamethasone 10 MG/ML VIAL 6 MG IVP (09:17)
[2020-11-21] MEDS: Fluticasone NASAL SPRAY 16 GM BTL NS (09:17)
[2020-11-21] MEDS: Insulin NPH-Human 300 UNITS/3 ML PEN 25 UNIT SC (09:17)
[2020-11-21] MEDS: Insulin Glargine 300 UNITS/3 ML PEN 30 UNITS SC (09:18)
[2020-11-21] MEDS: Insulin Aspart 300 UNITS/3 ML PEN SC ×2 (09:19→22:11)
--- NOTE | 2020-11-21 09:41 | PDOC.CMPRO ---
Care Management Progress Note S/O: Nimisha continues to be closely monitored and treated. CM attempted to call room; no answer. Nimisha is on room air at this time. She continues to work with PT; awaiting recommendations to inform discharge plan, VNA orders possible. CM will continue to follow. A: 60 year old female admitted to [facility] 11/15/20 for Covid-19 Pneumonia P: Nimisha will discharge home when ready per MD. She will follow up with her PCP and plan of care as prescribed. She will transport home via private vehicle with her daughter, Denae. CM will continue to assist with discharge planning.
--- NOTE | 2020-11-21 14:03 | PTTR_ITS ---
Date of service: 11/21/20 Time of Service: 14:03 PT Notes Visit Reasons: COVID-19 PNEUMONIA [facility] Date: 11/21/2020 PRECAUTIONS: Fall. COVID-19 protocol. SUBJECTIVE: Nimisha is agreeable to participating in ambulation activity this afternoon. States that she feels little better compared to yesterday. Is happy to know about her significant other returning home from another hospital yesterday. Hopeful that she can go home as soon as she is cleared to do so. Miss es her family so much. OBJECTIVE: XIE. Movement speed improving. Did not appear very shaky standing up she did yesterday. PAIN: Pain report on upper abdominal area in both quadrants and in the R groin after walking. Reported legs being achy with walking. BED MOBILITY/TRANSFERS Sit-supine: I Supine-sit: S Sit-stand: S Stand-sit: S GAIT Assistive Device: FWW Weight bearing: Full Assist: SBA Distance: 35 feet x 3 Deviation: Appeared more stable but reported minimal fatigue and minimal SOB after activity. Shalini improving. THEREX: Completed UE/LE AROM exercises. Incorporated DBE into UE exercises. See ex flow sheet. ASSESSMENT: Patient demonstrates much improved performance today compared to yesterday tolerating more distance with minimal SOB. Agreeable to doing bed level exercises even after covering increased distance. PLAN: Will continue to progress mobility training as tolerated. TREATMENT CODE/TIME: 84458 x 20 minutes, 55545 x 12 minutes beginning at 14:03 PM. CC:
--- NOTE | 2020-11-21 16:17 | W.PM.PROGNOT ---
Date of Service Date of service: 11/21/20 Time of Service: 16:18 Assessment and Plan Assessment and plan (1) Pneumonia due to COVID-19 virus: Status: Acute Assessment and plan: Today is day #7 of remdesivir and taste #7 of Decadron. She is improving but ever so slowly. Her inflammatory markers have shown improvement. Her WBC count did increase to 11,900 but I expect this is demargination from her steroids. Her D-dimer has improved as well as her CRP. We will continue the remdesivir for a few more days along with her Decadron. (2) Acute respiratory failure with hypoxia: Status: Acute Assessment and plan: As above (3) COPD (chronic obstructive pulmonary disease): Status: Chronic Assessment and plan: Continue home fluticasone in addition to scheduled combivent and prn albuterol here. Patient was not on home oxygen prior to her Covid-19. (4) Type 2 diabetes mellitus: Status: Acute Assessment and plan: NPH has been discontinued and Lantus dose has been drastically reduced. Sliding scale has been reduced to insulin sensitive level. (5) Chronic kidney disease: Status: Chronic Assessment and plan: Patient appears to be taking adequate oral liquid intake therefore I have discontinued her IV fluids. Furthermore despite IV hydration there is been no change in her BUN and creatinine. (6) DVT prophylaxis: Status: Acute Assessment and plan: Only on intermediate dosing of enoxaparin 40 mg subcutaneously every 12 hours. (7) Discharge planning issues: Status: Acute Assessment and plan: Full code. She may need P.T. upon discharge d/t severe generalized deconditioning from her COVID-19 pneumonia but she also was probably in general deconditioned shape prior to her infection. Subjective Subjective Interval history since last seen: Patient had recurrent hypoglycemic spell this afternoon. I have eliminated her nighttime Lantus dose and have drastically reduced her morning Lantus. This morning I cut it down to 30 units but I am going to decrease it further to 15 units for tomorrow morning. I have also gotten rid of any scheduled meal time NovoLog and instead we will use an insulin sensitive sliding scale. Patient feels cold this afternoon but she is not running any fever. Her oxygenation has improved she is down to 1 L/min nasal cannula. She is not coughing up any purulent sputum. Her nurse this afternoon got her up to bathe her and get her cleaned up and the patient had only been up 1/2-hour when she requested to go back to bed. I told the patient she needs to stay out of bed in sit up for her dinner this evening. Patient still does not prom because it is uncomfortable for her to lay on her abdomen. She has been trying to change which side she lies on. She continues to receive remdesivir and Decadron for COVID-19 pneumonia. Exam Narrative Exam Narrative: 60-year-old female who appears to be older than her stated age appears to be fatigued but not having any respiratory distress. Lungs are clear anteriorly posteriorly she has some fine bibasilar rales no rhonchi or wheezing Heart is regular rate and rhythm Abdomen soft and nontender Lower extremities without peripheral cyanosis or edema no calf swelling Objective Last Vital Signs Temp 36.4 C L 11/21/20 12:15 Pulse 110 H 11/21/20 12:15 Resp 20 11/21/20 12:15 BP 116/70 11/21/20 12:15 Pulse Ox 96 11/21/20 12:15
[2020-11-21] MEDS: Normal Saline Flush 10 ML SYR IVP (20:56)
[2020-11-21] MEDS: Mometasone 220 MCG 14 DOSE INHALER 1 PUFF IH (22:04)
[2020-11-21] MEDS: Melatonin 3 MG TAB PO (22:05)
[2020-11-21] MEDS: Senna TAB 1 TAB PO (22:05)
[2020-11-21] MEDS: Famotidine 20 MG TAB PO (22:05)
[2020-11-22] VITALS (16 sets, daily range): BP systolic 113–138; BP diastolic 58–81; PULSE 95–111; RESP 18–20; TEMP 35.8–36.9; O2SAT 91–97
[2020-11-22] MEDS: Enoxaparin 40 MG/0.4 ML SYR SC ×2 (04:39→16:17)
[2020-11-22 05:23] LABS: Anion Gap 13.1 mmol/L (3-11); C-Reactive Protein 1.15 mg/dL (0.0-0.3); CO2 19.9 mmol/L (21.0-32.0); CREATININE 2.2 mg/dL (0.55-1.02); Calcium 8.5 mg/dL (8.5-10.1); Chloride 107 mmol/L (98-107); Estimated GFR 22.77 (mL/min/1.73m2); Glucose 76 mg/dL (74-106); Potassium 4.4 mmol/L (3.5-5.1); Sodium 140 mmol/L (136-145)
[2020-11-22 05:32] LABS: BUN 84 mg/dL (7-18)
[2020-11-22 06:55] LABS: Abs Immature Grans 0.51 10^3/uL (0.0-0.06); HCT 34.3 % (36.0-46.0); HGB 11.4 g/dL (11.2-15.7); MCH 29.8 pg (27.0-33.0); MCHC 33.2 % (32.0-36.0); MCV 89.8 fL (80-95); MPV 9.9 fL (8.0-11.0); Nucleated RBC 0 %; Platelet Count 349 10^3/uL (130-400); RBC 3.82 10^6/uL (3.93-5.22); RDW 12.9 % (11.7-14.6); RDW-SD 42.6 fL; WBC 9.19 10^3/uL (4.4-10.8)
[2020-11-22 07:29] LABS: Absolute Lymphocyte Count 1.47 10^3/uL (1.2-3.4); Absolute Monocyte Count 0.92 10^3/uL (0.1-0.8); Absolute Neutrophil Count 6.62 10^3/uL (1.2-6.7)
[2020-11-22 07:30] LABS: Metamyelocytes % 2
[2020-11-22 07:31] LABS: Diff Comment Manual Differential; RBC Morphology Normal
[2020-11-22] MEDS: Ipratropium/Albuterol 4 GM 120 PUFF INH IH ×4 (07:59→20:43)
[2020-11-22] MEDS: Cholecalciferol (Vitamin D3) 1,000 UNIT TAB 2000 UNITS PO (08:07)
[2020-11-22] MEDS: Magnesium Oxide 400 MG TAB PO ×2 (08:07→20:41)
[2020-11-22] MEDS: Lisinopril 5 MG TAB PO (08:07)
[2020-11-22] MEDS: buPROPion-CR 100 MG TABCR PO (08:07)
[2020-11-22] MEDS: Dexlansoprazole 30 MG CAP 60 MG PO (08:07)
[2020-11-22] MEDS: DULoxetine 30 MG CAP 90 MG PO (08:07)
[2020-11-22] MEDS: Benzonatate 200 MG CAP PO ×3 (08:07→20:41)
[2020-11-22] MEDS: Atorvastatin 40 MG TAB PO (08:07)
[2020-11-22] MEDS: Docusate Sodium 100 MG CAP 200 MG PO (08:08)
[2020-11-22] MEDS: Aspirin E.C. 81 MG TABEC PO (08:08)
[2020-11-22] MEDS: Cyanocobalamin 500 MCG TAB 1000 MCG PO (08:08)
[2020-11-22] MEDS: Fluticasone NASAL SPRAY 16 GM BTL NS (08:09)
[2020-11-22] MEDS: Cetirizine 10 MG TAB PO (08:09)
[2020-11-22] MEDS: Zinc Sulfate 220 MG TAB PO (08:09)
[2020-11-22] MEDS: Dexamethasone 10 MG/ML VIAL 6 MG IVP (08:09)
[2020-11-22] MEDS: Ascorbic Acid 500 MG TAB 1000 MG PO ×2 (08:09→20:41)
[2020-11-22] MEDS: Insulin Glargine 300 UNITS/3 ML PEN 15 UNITS SC (08:56)
[2020-11-22] MEDS: Lactated Ringers 1,000 ML 100 ML IV ×2 (10:05→20:32)
[2020-11-22] MEDS: Insulin Aspart 300 UNITS/3 ML PEN SC ×4 (11:58→22:19)
--- NOTE | 2020-11-22 15:40 | PT.INTREAT ---
Date of service: 11/22/20 Time of Service: 14:25 PT Notes Visit Reasons: COVID-19 PNEUMONIA Inpatient Physical Therapy Treatment Note [facility] Date: 11/22/2020 PRECAUTIONS: COVID-19, back pain SUBJECTIVE: Nimisha states that she is having increased back pain today. She reports that she continues to feel very fatigued, although has been able to transfer from bed<>commode and bed<>chair independently, and feels safe doing so. OBJECTIVE: PAIN: Patient c/o LBP with gait training BED MOBILITY/TRANSFERS Supine-sit: I Sit-stand: I Stand-sit: I Bed-Chair: I Chair-bed: I GAIT Assistive Device: FWW Weight bearing: Full Assist: SBA Distance: 35' Deviation: c/o LBP, SOB VITALS: SaO2: 91-94% on RA with ther ex and gait training THEREX: Patient was instructed in an UE and LE strengthening program, completed while seated at EOB, as per flow sheet. ASSESSMENT: Patient c/o LBP and SOB with gait training, which appeared to limit her ability to progress her gait tolerance. PLAN: Continue with gait and transfer training as well as global strengthening and conditioning for improved activity tolerance. TREATMENT CODE/TIME: 35 minutes; 12096, 16971 (14:25)
--- NOTE | 2020-11-22 15:43 | W.PM.PROGNOT ---
Date of Service Date of service: 11/22/20 Time of Service: 15:43 Assessment and Plan Assessment and plan (1) Atypical chest pain: Status: Acute Assessment and plan: Patient complains of CP that she says feels like chest congestion however it was reproducible w/ palpation of her lower sternum and xiphoid process. I suspect costochondritis from her coughing. However given her prior hx of CAD/stents I will check EKG. I will also give her Mylanta. Because of her ISA she can not have Toradol. (2) Pneumonia due to COVID-19 virus: Status: Acute Assessment and plan: Today is day #8 of remdesivir and taste #8 of Decadron. She is improving but ever so slowly. Her inflammatory markers have shown improvement. WBC is down to 9000 and CRP is 1.1. He oxygenation has improved to the point she is now on room air and at least at rest her SPO2 is in the mid to high 90%. (3) Acute respiratory failure with hypoxia: Status: Acute Assessment and plan: As above (4) COPD (chronic obstructive pulmonary disease): Status: Chronic Assessment and plan: Continue home fluticasone in addition to scheduled combivent and prn albuterol here. Patient was not on home oxygen prior to her Covid-19. (5) Type 2 diabetes mellitus: Status: Acute Assessment and plan: NPH has been dc'ed and SSI has been reduced to insulin sensitive. I also dc'ed her night time Lantus and reduced her daily Lantus to 15 units but now she is eating better, I am increasing her dose to 25 units. (6) Chronic kidney disease: Status: Chronic Assessment and plan: Patient appears to be taking adequate oral liquid intake nevertheless her renal function appears to be consistent w/ prerenal azotemia. BUN is up to 84 and creatinine is up to 2.2. I have reordered iv fluids to run overnight. I will repeat her BMP in the morning. I have also put her Remdesevir on hold. (7) DVT prophylaxis: Status: Acute Assessment and plan: Only on intermediate dosing of enoxaparin 40 mg subcutaneously every 12 hours. (8) Discharge planning issues: Status: Acute Assessment and plan: Full code. She may need P.T. upon discharge d/t severe generalized deconditioning from her COVID-19 pneumonia but she also was probably in general deconditioned shape prior to her infection. I think that she will be ready for discharge tomorrow. Subjective Subjective Interval history since last seen: Overall patient's dyspnea has improved. She still has a cough but nonproductive she remains afebrile. She has been weaned off oxygen to room air and at rest her saturation is 96% however this afternoon she been having intermittent substernal chest pain I asked her what it felt like and she says it feels like congestion. She has known coronary disease with previous stents but this discomfort is unlike that which led to her coronary stents. Of asked her to pinpoint warts that she points to the xiphoid area. Upon examination is reproducible chest wall pain with palpation of her lower sternum and xiphoid. Patient states she started to get her sense of taste and smell. Today her coffee she said smelled terrible and she could not drink it prior to that she had no sense of smell. She had another episode of hypoglycemia this morning of her not as severe. Fingerstick blood sugar was 76 this morning. I drastically had cut back her Lantus and got rid of her scheduled doses of NovoLog and decrease the sliding scale down to insulin sensitive scale. Since that time her blood sugars have come up and at lunchtime were 290. Exam Narrative Exam Narrative: Obese female lying on her left side no respiratory distress but is uncomfortable from her chest discomfort. Lungs are clear to auscultation no wheezes rales or rhonchi. Heart is regular rate and rhythm without murmur rub or gallop. Chest wall is tender over the lower sternum and xiphoid area Abdomen is mildly tender of the epigastric area but nontender in all the other quadrants. Objective Last Vital Signs Temp 36.5 C 11/22/20 12:01 Pulse 110 H 11/22/20 12:01 Resp 18 11/22/20 12:01 BP 116/58 L 11/22/20 12:01 Pulse Ox 93 11/22/20 12:01 Laboratory Results - last 24 hr 11/22/20 11/22/20 11/22/20 05:00 05:00 06:25 WBC 9.19 RBC 3.82 L Hgb 11.4 Hct 34.3 L MCV 89.8 MCH 29.8 MCHC 33.2 RDW 12.9 Plt Count 349 MPV 9.9 Immature Gran % See Differential Neutrophils % 72.0 Lymphocytes % 16.0 Monocytes % 10.0 Eosinophils % 0.0 Basophils % 0.0 Metamyelocytes % 2 Nucleated RBC % 0 Absolute Neutrophils 6.62 Absolute Lymphocytes 1.47 Absolute Monocytes 0.92 H Absolute Eosinophils 0.00 Absolute Basophils 0.00 RBC Morphology Normal Sodium 140 Potassium 4.4 Chloride 107 Carbon Dioxide 19.9 L Anion Gap 13.1 H BUN 84 H* D Creatinine 2.2 H Estimated GFR/1.73 m2 22.77 Glucose 76 Cancelled Calcium 8.5 C-Reactive Protein 1.15 H
--- NOTE | 2020-11-22 16:00 | RT.EKG_ITS ---
APPROVED REPORT Exam: Resting ECG Patient Location: I HR:106 bpm ECG Measurements Heart Rate 106 AXIS LA 170 P 48 QRSd 67 QRS -3 QT 324 T 45 QTc 430 Conclusion Sinus tachycardia...rate> 99 Low voltage, extremity and precordial leads...extremity<0.5mV, precordial<1.0mV Consider anteroseptal infarct...Q >30mS, dimin R, V1-V2
[2020-11-22] MEDS: Mylanta Suspension 30 ML CUP PO ×2 (16:17→22:46)
--- NOTE | 2020-11-22 17:05 | CMPROGNOTE_ITS ---
Care Management Progress Note S/O: Nimisha continues to be closely monitored and treated. Per MD she had another hyperglycemic episode this morning. She continues to work with PT; awaiting recommendations to inform discharge plan, VNA orders possible. CM will continue to follow. A: 60 year old female admitted to [facility] 11/15/20 for Covid-19 Pneumonia P: Nimisha will discharge home when ready per MD. She will follow up with her PCP and plan of care as prescribed. She will transport home via private vehicle with her daughter, Denae. CM will continue to assist with discharge planning.
[2020-11-22] MEDS: Mometasone 220 MCG 14 DOSE INHALER 1 PUFF IH (20:44)
[2020-11-22] MEDS: Melatonin 3 MG TAB PO (22:09)
[2020-11-22] MEDS: Famotidine 20 MG TAB PO (22:09)
[2020-11-22] MEDS: Senna TAB 1 TAB PO (22:09)
[2020-11-23] VITALS (8 sets, daily range): BP systolic 106–133; BP diastolic 61–67; PULSE 100–127; RESP 18–20; TEMP 36.2–36.4; O2SAT 91–97
--- NOTE | 2020-11-23 01:51 | NUR.NOTE ---
patient was calling at 1930 regarding the IV alarm, as RN was preparing meds to give to 216, RN needs to attend to another patient due to some emergent situation that needs attention and needs DR to be informed. After settling with the other patient, RN went inside the room of the patient at 2014, patient was really upset and stated she was very anxious of the alarm noise it created and she needs to endure for 45 mins. RN let patient verbalized feelings of frustration and apologized repetitively to let patient ease frustration and anxiety. patient became more understanding of the situation thereafter. RN proceeded with giving meds take VS and do assessments.
[2020-11-23] MEDS: Acetaminophen 325 MG TAB PO (02:34)
[2020-11-23] MEDS: Enoxaparin 40 MG/0.4 ML SYR SC (04:01)
[2020-11-23] MEDS: Lactated Ringers 1,000 ML 100 ML IV (05:57)
[2020-11-23 08:15] LABS: Anion Gap 3.1 mmol/L (3-11); CO2 25.9 mmol/L (21.0-32.0); Calcium 8.5 mg/dL (8.5-10.1); Chloride 107 mmol/L (98-107); Estimated GFR 25.42 (mL/min/1.73m2); Glucose 209 mg/dL (74-106); Potassium 4.9 mmol/L (3.5-5.1); Sodium 136 mmol/L (136-145)
[2020-11-23 08:17] LABS: BUN 81 mg/dL (7-18)
[2020-11-23] MEDS: Dexamethasone 10 MG/ML VIAL 6 MG IVP (08:27)
[2020-11-23] MEDS: buPROPion-CR 100 MG TABCR PO (08:28)
[2020-11-23] MEDS: DULoxetine 30 MG CAP 90 MG PO (08:28)
[2020-11-23] MEDS: Cetirizine 10 MG TAB PO (08:29)
[2020-11-23] MEDS: Cholecalciferol (Vitamin D3) 1,000 UNIT TAB 2000 UNITS PO (08:29)
[2020-11-23] MEDS: Atorvastatin 40 MG TAB PO (08:29)
[2020-11-23] MEDS: Aspirin E.C. 81 MG TABEC PO (08:29)
[2020-11-23] MEDS: Benzonatate 200 MG CAP PO (08:29)
[2020-11-23] MEDS: Dexlansoprazole 30 MG CAP 60 MG PO (08:31)
[2020-11-23] MEDS: Zinc Sulfate 220 MG TAB PO (08:31)
[2020-11-23] MEDS: Ascorbic Acid 500 MG TAB 1000 MG PO (08:31)
[2020-11-23] MEDS: Cyanocobalamin 500 MCG TAB 1000 MCG PO (08:32)
[2020-11-23] MEDS: Docusate Sodium 100 MG CAP 200 MG PO (08:32)
[2020-11-23] MEDS: Lisinopril 5 MG TAB PO (08:32)
[2020-11-23] MEDS: Insulin Aspart 300 UNITS/3 ML PEN SC ×4 (08:33→12:17)
[2020-11-23] MEDS: Magnesium Oxide 400 MG TAB PO (08:33)
[2020-11-23] MEDS: Insulin Glargine 300 UNITS/3 ML PEN 25 UNITS SC (08:34)
[2020-11-23] MEDS: Fluticasone NASAL SPRAY 16 GM BTL NS (08:35)
[2020-11-23] MEDS: Ipratropium/Albuterol 4 GM 120 PUFF INH IH ×2 (08:35→12:15)
[2020-11-23 11:58] LABS: D-Dimer 366 ng/mlFEU (<500)
[2020-11-23 12:16] LABS: Bilirubin Negative (Negative); Blood Negative (Negative); Clarity Clear (Clear); Glucose Negative (Negative); Ketones Negative (Negative); Leukocyte Esterase Negative (Negative); Nitrite Negative (Negative); Urobilinogen 0.2 EU/dL (Up TO 0.2); pH 5.5 (5-8)
--- NOTE | 2020-11-23 13:20 | W.PM.DS.N ---
Date of service: 11/23/20 Time of Service: 13:20 DS: Diagnosis Discharge Diagnosis (1) Pneumonia due to COVID-19 virus: Status: Resolved (2) Acute respiratory failure with hypoxia: Status: Resolved (3) COPD (chronic obstructive pulmonary disease): Status: Chronic (4) Atypical chest pain: Status: Resolved (5) Type 2 diabetes mellitus: Status: Chronic (6) Chronic kidney disease: Status: Chronic (7) DVT prophylaxis: Status: Resolved (8) Discharge planning issues: Status: Resolved Discharge Plan Disposition Patient Disposition: HOME Condition: Improving Discharge Details Reason For Visit: COVID-19 PNEUMONIA Admit Date/Time: 11/15/20 15:55 Admit Provider: Rosie Narvaez Attending Provider: Rosie Narvaez Primary Care Provider: Maylin Garcia Hospital Course Hospital Course: Ms Jordan is a 60 year old female with PMHx of COPD, T2DM, CAD, HTN, CKD, who was diagnosed with COVID-19 on 11/13/20 at [facility] ED and was sent home to follow up with the respiratory care clinic for a MAB infusion, who was sent to [facility] ED today from the clinic for acute hypoxic respiratory failure with O2 sats of 84% on ambulation and dyspnea. She did not receive the MAB infusion. The patient states that she got COVID-19 from her grandson who lives with her. He is 16 and attends a local school. The patient first noticed her symptoms 4 days ago. She describes subjective fevers, chills, severe bodyaches, weakness, difficulty walking, sore throat, loss of taste and smell, nonproductive cough initially, though now she has brownish sputum, shortness of breath, nausea and diarrhea, which has now resolved. In the ED, her CXR shows significant involvement of the lung parenchyma by COVID-19. Her O2 requirement has been between 0.5 and 2 L of O2 by TN. She was initiated on decadron and empiric full dose anticoagulation. Her kidney function is borderline for initiation of remdesivir. Hospitalists were asked to take over care. The patient is full code. When discussing risks/benefits of remdesivir with her borderline kidney function, the patient elected to go ahead and try it. Patient received 9 day course of Decadron (10 mg IV on admission and 6 mg daily for another 8 days). She received Remdesivir for 7 days (200 mg on 11/15 and 100 mg daily through 11/21). Remdesivir was held the last two days of her hospital stay d/t her renal function. Patient's admission BUN and creatinine were abnormal at 36 and 1.9. Her BUN monica to as high as 84 and was still high at 81 on the day of her discharge. However her creatinine remained relatively stable varying between 1.9 and 2.2 and was 2.0 on discharge. The patient received iv fluid hydration d/t her decreased appetite and poor oral intake from her decreased sense of taste and smell from COVID-19. However, iv fluids made no difference in her BUN and creatinine. It is thought that her persistent elevated BUN may be due to either the Remdesivir or or due to the steroids. She is to have a follow up BMP in one week. She is to avoid use of any NSAIDS. During her hospitalization she was initially put on high dose enoxaparin at 1 mg/kg SC daily but then de-escalated to moderate dose enoxaparin 40 mg SC Q12hr. Her d-dimer on admission was 1344 ng/mL and declined to normal at 449 on 11/18 and remained normal. At discharge her level was 366. At this time further anticoagulation is not necessary. During her hospitalization she had an afternoon of atypical epigastric/SSCP in which EKG was obtained and showed no ischemia. She received antacids which relieved her discomfort and she had no further episodes. The patient is discharged home w/ instructions to continue to wear a mask whenever out in public or when around family members but she no longer needs to quarantine. She is advised to get an appointment for COVID-19 vaccine. Home Meds and New Rx's Prescriptions: Continued nystatin 100,000 unit/mL Suspension 5 ml PO QID PRN PRNRF: 0 Narcan 4 mg/actuation [place],Non-Aerosol 4 mg INTRANASAL PRN PRNRF: 0 (DME) rolling walker with seat Qty: 1 RF: 0 zolpidem 10 MG tablet 10 mg PO HS PRNRF: 0 insulin aspart U-100 [Novolog Flexpen U-100 Insulin] 300 UNITS/3 ML insulin pen 2 - 20 units Sub-Q 0800,1200,1700 RF: 0 nitroglycerin [Nitrostat] 0.4 MG tablet, sublingual 0.4 mg Sublingual PRN PRNRF: 0 cyclobenzaprine 10 mg tablet 10 mg PO Q8H PRN PRNRF: 0 atorvastatin 40 mg tablet 40 mg PO DAILY RF: 0 prednisone 10 mg tablet 10 mg PO DAILY RF: 0 cetirizine 10 mg tablet 10 mg PO DAILY RF: 0 hydrocodone-acetaminophen 5-325 mg tablet 1 tab PO Q8H PRN PRNRF: 0 cyanocobalamin (vitamin B-12) [Vitamin B-12] 1,000 mcg tablet 1,000 mcg PO DAILY RF: 0 aspirin 81 mg tablet,delayed release (DR/EC) 81 mg PO DAILY RF: 0 bupropion HCl 100 mg tablet sustained-release 12 hr 100 mg PO DAILY RF: 0 magnesium oxide 400 mg (241.3 mg magnesium) tablet 400 mg PO BID RF: 0 lorazepam 0.5 mg tablet 0.5 mg PO PRN PRNRF: 0 lisinopril 5 mg tablet 5 mg PO DAILY RF: 0 pyridoxine (vitamin B6) 100 mg tablet 100 mg PO DAILY RF: 0 fluticasone propionate 50 mcg/actuation spray,suspension 1 spray INTRANASAL DAILY RF: 0 duloxetine 30 mg capsule,delayed release(DR/EC) 30 mg PO DAILY RF: 0 duloxetine 60 mg capsule,delayed release(DR/EC) 60 mg PO DAILY RF: 0 Dexilant 60 mg capsule,biphase delayed releas 60 mg PO DAILY RF: 0 Flovent HFA 110 mcg/actuation Hfa Aerosol Inhaler 1 puff INHALATION BID PRNRF: 0 docusate sodium 250 mg Capsule 250 mg PO DAILY PRNRF: 0 Changed Basaglar KwikPen U-100 Insulin 100 unit/mL (3 mL) insulin pen 25 unit SUBCUT DAILY Qty: 0 RF: 0 Discontinued doxycycline hyclate 100 mg capsule 100 mg PO BID Qty: 8 RF: 0 Discharge Instructions Instructions: COVID-19 (Coronavirus Disease 2019) (DC), COVID-19 and Chronic Health Conditions (DC), Face Coverings (Masks) and COVID-19 (DC) Additional Instructions: Please wear your mask whenever you are around other people or pets including family members. This protects you as well as protect others from spread of infection. You no longer need to quarantine as it has been 10 days since your diagnosis of Covid-19, however, you still need to continue use of mask and hand washing and keeping a safe distance from other people (at least 6 feet). Your family members who have Covid-19 need to also mask and maintain safe social distance from you and each other. You should get the SARS-Cov-2 vaccine to protect you from future Covid infections. While you probably have adequate antibodies from your recent infection, we do not know how long those antibodies will protect you and it is possible to get a second Covid infection. You have recovered enough now that you can get your vaccine at anytime and should sign up for the vaccine through the [place] [facility]. Stand Alone Forms: Nursing Discharge Form Referrals: Maylin Garcia [Primary Care Provider] - 12/01/20 11:00 am Activity:: Activity as Tolerated Equipment/Supplies:: No Equipment Needed Diet:: Carb Counting Discharge Orders Discharge Orders: Discharge Order (Routine); Ordered 11/23/20 Ordered By: Ap Martines Other Ambulatory Orders: Basic Metabolic Panel (Routine) Timeframe: 1 Week Facility: [facility] - Location: Laboratory Outpatient Ordered By: Ap Martines DS: Summary Time Spent with Patient providing and/or coordinating discharge services: Greater than 30 minutes Status at Discharge Functional status at discharge: independent ambulation Overall status at discharge: patient is progressing back to baseline Mental Status: mental status grossly normal Speech and Movement: speech and movement normal Mood: congruent mood Affect: normal affect Exam Psych Mental Status: mental status grossly normal Speech and Movement: speech and movement normal Mood: congruent mood Affect: normal affect DS: Data Vitals/I&O Vitals and I&O: Vital Signs Temperature 36.4 C L 11/23/20 08:30 Temperature Source Tympanic 11/23/20 08:30 Pulse 100 H 11/23/20 08:30 Pulse Rhythm Regular 11/23/20 08:30 Pulse 111 H 11/22/20 11:24 Respiratory Rate 18 11/23/20 09:20 Respiratory Effort Non-Labored 11/23/20 08:30 Respiratory Depth Normal 11/23/20 08:30 Respiratory Pattern Normal 11/23/20 08:30 Blood Pressure 106/64 11/23/20 08:30 Blood Pressure Mean 75 11/18/20 00:00 Blood Pressure Position Supine 11/17/20 08:15 Pulse Oximetry 96 11/23/20 09:20 Oxygen Delivery Method Room Air 11/23/20 09:20 Oxygen Flow Rate 0 11/23/20 09:20 Pain Level 0 11/23/20 08:30 Comment 11/22/20 12:01 Intake & Output 11/22/20 11/23/20 11/23/20 23:59 11:59 23:59 Intake Total 1660 / 2570 1101.667 / 1731.667 630 / 1731.667 Output Total 1020 / 1420 940 / 940 Balance 640 / 1150 161.667 / 791.667 630 / 791.667 Intake: IV 1010 / 1020 951.667 / 1581.667 630 / 1581.667 Oral 650 / 1550 150 / 150 Output: Urine 1020 / 1420 940 / 940 Other: Urine Color Pale Pale Yellow Yellow Urine Appearance Clear Clear Urine Odor Normal Normal Stool Size Moderate Stool Characteristics Soft Brown Voiding Methods Urinal Bedside Commode Data Completed and Pending Labs on day of discharge: Labs from last 24 hours 11/23/20 11/23/20 11/23/20 12:05 11:05 07:50 D-Dimer 366 Sodium 136 Potassium 4.9 Chloride 107 Carbon Dioxide 25.9 Anion Gap 3.1 BUN 81 H* Creatinine 2.0 H Estimated GFR/1.73 m2 25.42 Glucose 209 H D Calcium 8.5 Urine Color Yellow Urine Clarity Clear Urine pH 5.5 Ur Specific Anchor 1.020 Urine Protein Negative Urine Ketones Negative Urine Blood Negative Urine Nitrite Negative Urine Bilirubin Negative Urine Urobilinogen 0.2 Ur Leukocyte Esterase Negative Urine Glucose Negative [facility] Medical History Acute exacerbation of chronic obstructive airways disease Acute sinusitis Allergic rhinitis Anemia Benign neoplasm of peripheral 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 No complications. Cholecystectomy Coronary Stent H/O lumpectomy Hx of tubal ligation Family History Brother Diabetes Hypertension Heart disease Stroke Obesity Chronic headaches Arthritis Brother Arthritis Chronic headaches Diabetes Heart disease Hypertension Obesity Stroke Father Heart disease Stroke Hypertension Chronic headaches Sister Diabetes Obesity Osteoporosis Daughter Migraine Obesity Brother Arthritis Diabetes Chronic headaches Hypertension Obesity Stroke Mother Asthma Arthritis Diabetes Obesity Stroke Glaucoma Social History Smoking/Tobacco Use Status: Former Tobacco Use Quit Date: 04/13/19 Pack-years: 45 Tobacco: How many years used: 45 Quit status: considering quitting Smoking risk assessment performed?: Yes Alcohol Intake: never Drug use: Never Substance use type: does not use Details: Quit smoking 6 months ago. Household members: friend(s) Housing: apartment Number of Children: 3 number of grandchildren: 14 current occupation: none What is your relationship status?: Panel score (0-1 are the most socially isolated patients): 0 What type of physical activity do you participate in: none Do you feel safe at home: Yes Do you feel safe in your relationship?: Yes
--- NOTE | 2020-11-23 14:11 | PDOC.CMDIS ---
LACE Index Scoring Tool - Questions: Length of Stay (in days): 7 - 13 Acuity (Admit via E.D.?): Yes Comorbidities: Diabetes w/o Complication, Liver or Renal Disease E.D. Visits: 5 - Answers: Total Score: 17 Risk of Readmission: High Risk Care Management Discharge Reason for Hospitalization: Covid 19 Pneumonia Discharge Plan: Nimisha will discharge home when ready per MD. She will have new orders for RN and PT through [facility] and follow up with her PCP and plan of care as prescribed. She will transport home via private vehicle with her daughter, Marichuy. Marichuy and her mother are Covid Positive, CM coordinated no staff contact discharge. Marichuy will drive to main entrance and call M/S who will escort Nimisha out. CM reviewed guidelines with Nimisha Philippe's other daughter and Divya; RNCC confirmed Covid discharge packet will be provided at discharge. Patient/Family Education Needs: Review discharge instructions, discuss Ask Me Three. Services Needed at Discharge: Home Health Care Services (RN/PT.)
--- NOTE | 2020-11-24 13:28 | PT.INDS ---
Date of service: 11/24/20 Time of Service: 13:28 PT Notes Visit Reasons: COVID-19 PNEUMONIA Physical Therapy Inpatient Discharge Summary Date: 11/24/2020 Dates of service: 11/17/2020 through 11/22/2020 This is a clinical summary of care provided on the duration of dates listed above. No charge was made in the completion of this documentation. Referring Doctor: Rosie Narvaez MD PT Orders: PT CONSULT: Limited ability Precautions: Fall. Standard. COVID-19 precautions/protocol in place. Activity as tolerated. Patient Profile/Admitting Diagnosis: Stephanie is a 60-year-old female who presented to the ED on 11/15/2020 with increasing shortness of breath and fatigue. Patient is diagnosed with pneumonia due to COVID-19 infection, acute respiratory failure, chronic obstructive pulmonary disease exacerbation, type 2 diabetes mellitus, and chronic kidney disease. PMHX: Medical History Acute exacerbation of chronic obstructive airways disease Acute sinusitis Allergic rhinitis Anemia Benign neoplasm of peripheral nerve Benign neoplasm of peripheral nerves and autonomic nervous system, unspecified Cataracts, bilateral Chronic renal impairment associated with type 2 diabetes mellitus CKD stage 3 due to type 2 diabetes mellitus Colon polyp Coronary artery disease Depression Diabetes pt reports elevated HgbA1c Diabetes mellitus with neurologic complication, with long-term current use of insulin Diarrhea Disorder of both eyes Dupuytren's disease of palm Dysrhythmia Epigastric pain Fibromyalgia Hyperlipidemia Hypertension Hypomagnesemia Insomnia Low back pain Mental disorder 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 No complications. Cholecystectomy Coronary Stent H/O lumpectomy Hx of tubal ligation Social History/Home Situation: Lives with family in an apartment with a ramp to enter. Independent with front-wheeled walker at baseline. Equipment Owned/DME: Front wheeled walker Subjective: NT. See most recent VOICE NETWORK ADMINISTRATOR notes. Objective: General Observation: NT. See most recent VOICE NETWORK ADMINISTRATOR notes. Mental Status: NT. See most recent VOICE NETWORK ADMINISTRATOR notes. Pain: NT. See most recent VOICE NETWORK ADMINISTRATOR notes. Vital Signs: NT. See most recent VOICE NETWORK ADMINISTRATOR notes. ROM: Right Upper Extremity: Shoulder Flexion WFL. Shoulder abduction WFL. Elbow flexion WFL. Wrist flexion WFL. Opening and closing of hand WFL. Left Upper Extremity: Shoulder Flexion WFL. Shoulder abduction WFL. Elbow flexion WFL. Wrist flexion WFL. Opening and closing of hand WFL. Right Lower Extremity: Hip flexion WFL. Hip abduction WFL. Knee flexion WFL. Ankle dorsiflexion WFL. Ankle plantarflexion WFL. Left Lower Extremity: Hip flexion WFL. Hip abduction WFL. Knee flexion WFL. Ankle dorsiflexion WFL. Ankle plantarflexion WFL. Strength: Right Upper Extremity: Shoulder flexors 3+/5. Shoulder abductors 3+/5. Elbow flexors 3+/5. Elbow extensors 3+/5. Senior Storage Administrator strong. Left Upper Extremity: Shoulder flexors 4-/5. Shoulder abductors 4-/5. Elbow flexors 4-/5. Elbow extensors 4-/5. Senior Storage Administrator strong. Right Lower Extremity: Hip flexors 3+/5. Hip abductors 3+/5. Knee flexors 3+/5. Knee extensors 3+/5. Ankle dorsiflexors 3+/5. Ankle plantarflexors 4-/5. Left Lower Extremity:Hip flexors 4/5. Hip abductors 4/5. Knee flexors 4/5. Knee extensors 4/5. Ankle dorsiflexors 4/5. Ankle plantarflexors 4/5. Sensation: Intact as to pain and pressure on bilateral lower extremities. No report of tingling or numbness in bilateral lower extremities. Bed Mobility/Transfers: Rolling independent Sit to stand independent Stand to sit independent Bed to chair independent Sit to supine independent Gait: Able to tolerate up to 35 feet of short distance ambulation using front wheeled walker with full weightbearing requiring standby assist with complaint of low back pain as well as shortness of breath with oxygen saturation ranging from 91% to 94% on room air. Balance: Static Sitting: Normal Dynamic Sitting: Normal Static Standing: Fair Dynamic Standing: Fair Assessment: COVID-19 positive infectionKavita Bansal demonstrates significant functional mobility decline requiring assistance of 1 and the use of a front wheeled walker for all mobility ADL performance, generalized weakness, decreased activity tolerance, impairment in balance, and increased risk for falls due to admitting diagnoses and comorbidities. Patient will benefit from home health PT services in order to progress mobility level using least restrictive assistive ambulatory device, assess home safety, identify additional equipment needs, and establish a functional maintenance program that will increase ability of patient to remain at home. Patient continues to present with clinical signs and symptoms consistent with current/admitting diagnoses that have resulted to mobility limitations, gait instability, generalized weakness, and impairment of motor control as demonstrated by the following impairment level findings: 1. Decreased strength to BUE UEs/LE major muscle groups 2. Impaired standing balance and tolerance 3. Impaired activity tolerance 4. Shortness of breath Impairments are continuing to contributeto the following functional limitations: 1. Inability to safely ambulate without assistive device 2. Increase completion time for mobility ADL performance 3. Increased fall risk 4. Inability to negotiate steps alone safely Goals: Goals X1 week 1. Supine-Sit independent MET 2. Sit-Supine independent MET 3. Sit-Stand independent MET 4. Stand-Sit independent MET 5. Bed-Chair independent MET 6. Chair-Bed independent MET 7. Independent gait on level surface with use of least restrictive device for at least 100 feet without report of pain nor dyspnea NOT MET 8. Independent stair negotiation while holding onto bilateral rails for at least 10 steps without report of pain nor dyspnea NOT MET 9. Independent with home exercise program NOT MET 10. Good static and dynamic standing balance/tolerance NOT MET DISCHARGE RECOMMENDATIONS: Patient will benefit from home health PT services in order to progress mobility level using least restrictive assistive ambulatory device, assess home safety, identify additional equipment needs, and establish a functional maintenance program that will increase ability of patient to remain at home. TREATMENT CODE/TIME: [place] Thank you for the opportunity to participate in the care of this patient. Patricia Degroot PT, DPT, CLT [facility] [place], [place]
--- NOTE | 2020-11-24 13:59 | CMPROGNOTE_ITS ---
Care Management Progress Note 0815 CM rec'd notification from [facility] at 0815 that Home Health orders were not completed for Nimisha's discharge on 11/23/20. 0820 CM text paged to notify of need for F2F orders. 1015 CM rec'd voicemail from [facility] stating orders had not yet been received. told CM he was aware of need but unable to complete due to acute patient needs. 1200 CM rec'd VM from [facility] that orders had not been rec'd and patient would not be able to be seen this weekend if orders were not rec'd by 1400. 1340 CM rec'd call from [facility] that Nimisha Jordan needed new F2F orders. [facility] confirmed this was known information and is occupied at this time. Sis reported [facility] stated Nimisha would not be able to be seen this weekend. Sis asked this journalists and other writers to notify [facility] that orders that are not in the chart are in fact, not yet available in the chart. 1342 CM called who reported he was aware of the request and it would just have to wait as acute care needs had to be triaged first. stated orders would be completed by the end of day. 1345 CM called Maile at [facility], reviewing the above, Maile again repeated all of the above information; [facility] confirmed again that this was known information and this journalists and other writers is unable to complete MD orders. [facility] reviewed that reported orders would be entered by end of day and if the [facility] couldn't commit to seeing patient without orders, she would not then be seen this weekend.
--- NOTE | 2020-11-25 11:16 | PDOC.HHF2F_ITS ---
Home Health Certification Home Health Certification: 1. Encounter Date and Reason I certify that DOROTHY HONEYCUTT was seen by Ap Martines on 11/25/20 and that I had a [id number] encounter with this patient that meets the physician face to face encounter requirements. 2. Clinical Findings Supporting Skilled Need and Homebound Status I certify that home health services are medically necessary, include either intermittent intermediate and/or physical/speech therapy, and that this patie nt is homebound in that absences from the home require considerable and taxing effort and are infrequent or of short duration, or are attributable to the need to receive medical care. [X] (a) Attached documentation from encounter provides clinical findings supporting skilled need and homebound status (including what assistance patient requires to leave the home). The encounter with the patient was in whole, or in part, for the following medical condition, which is the primary reason for home health care: COVID-19 PNEUMONIA Half-Way: home health nurse to evaluate patient's respiratory status, vital signs, review meds; educate patient about COVID-19 and proper masking/distancing/hand washing and reduction of risk; nursing to obtain any labs that PCP requests and report results to PCP; nursing to adjust medications at direction of PCP Physical Therapy: home P.T. to evaluate and treat patient regarding deconditioning/general weakness Speech Therapy: Homebound: patient's recent respiratory failure d/t COVID-19 has debilitated patient such that travel outside her home is a risk to her well being and her respiratory status is too fragile to seek medical care outside her home. 3. Certification and Authentication I certify that I composed the above information based on my clinical judgement relating to this patient's medical condition and, if applicable, clinical findings communicated to me by the NPP or inpatient physician who performed the Home Health Referral. All further orders will be obtained through Maylin Garcia (Community Based Physician - PCP)
== END 2020-11-23 14:12 | disposition home or self-care (01) | DRG 177 ==
LOC: ER 16:09 → ICU 17:27 → MS 11-19 09:29
PROVIDERS: Internal Medicine; Admitting Provider Internal Medicine; Emergency Provider Physician Assistant; PCP Nurse Practitioner Family; Visit Provider Internal Medicine
DX: U07.1 COVID-19 (principal); J12.82 Pneumonia due to coronavirus disease 2019; J96.01 Acute respiratory failure with hypoxia; J44.0 Chronic obstructive pulmonary disease with (acute) lower respiratory infection; Z68.41 Body mass index [BMI] 40.0-44.9, adult; S41.102A Unspecified open wound of left upper arm, initial encounter; X58.XXXA Exposure to other specified factors, initial encounter; I25.10 Atherosclerotic heart disease of native coronary artery without angina pectoris; K21.9 Gastro-esophageal reflux disease without esophagitis; F32.9 Major depressive disorder, single episode, unspecified; M79.7 Fibromyalgia; D64.9 Anemia, unspecified; E11.22 Type 2 diabetes mellitus with diabetic chronic kidney disease; I12.9 Hypertensive chronic kidney disease with stage 1 through stage 4 chronic kidney disease, or unspecified chronic kidney disease; N18.30 Chronic kidney disease, stage 3 unspecified; E11.40 Type 2 diabetes mellitus with diabetic neuropathy, unspecified; Z79.4 Long term (current) use of insulin; E78.5 Hyperlipidemia, unspecified; K59.00 Constipation, unspecified; E66.9 Obesity, unspecified; B95.62 Methicillin resistant Staphylococcus aureus infection as the cause of diseases classified elsewhere
CPT/HCPCS: 36415; 80048; 80053; 80076; 82550; 82947; 84145; 93005; 94618; 94640; 96372; 96374; 97110; 97163; 97530; 99232; 99233; 99239; 99285; 99291; J1650; 71045; 81003; 82728; 83036; 83605; 83615; 83735; 84484; 85025; 85379; 85610; 85730; 86140; 93010; J1100; J3475; J3490; J7512

== ENCOUNTER 2020-12-13 10:31 | Emergency (ER) | payer MEDICARE, MEDICAID, SELFPAY ==
[2020-12-13] VITALS (62 sets, daily range): BP systolic 98–148; BP diastolic 49–78; PULSE 102–134; RESP 14–35; TEMP 36.6; O2SAT 96–100
--- NOTE | 2020-12-13 10:15 | RT.EKG_ITS ---
APPROVED REPORT Exam: Resting ECG Patient Location: E HR:120 bpm ECG Measurements Heart Rate 120 AXIS HI 155 P 44 QRSd 77 QRS 2 QT 318 T 66 QTc 450 Conclusion Sinus tachycardia...rate> 99 Low voltage, extremity and precordial leads...extremity<0.5mV, precordial<1.0mV I have reviewed and interpreted ECG and agree with software generated interpretation.
--- NOTE | 2020-12-13 10:54 | W.ED.GENAD ---
Discharge Plan Disposition Patient Disposition: HOME Condition: Stable Discharge Details Clinical Impression: Atypical chest pain, Hypomagnesemia Primary Care Provider: Maylin Garcia ED Provider: Harini Fields [place] Meds and New Rx's Prescriptions: Continued nystatin 100,000 unit/mL Suspension 5 ml PO QID PRN PRNRF: 0 Narcan 4 mg/actuation [place],Non-Aerosol 4 mg INTRANASAL PRN PRNRF: 0 (DME) rolling walker with seat Qty: 1 RF: 0 zolpidem 10 MG tablet 10 mg PO HS PRNRF: 0 insulin aspart U-100 [Novolog Flexpen U-100 Insulin] 300 UNITS/3 ML insulin pen 2 - 20 units Sub-Q 0800,1200,1700 RF: 0 Basaglar KwikPen U-100 Insulin 100 unit/mL (3 mL) insulin pen 25 unit SUBCUT DAILY Qty: 0 RF: 0 nitroglycerin [Nitrostat] 0.4 MG tablet, sublingual 0.4 mg Sublingual PRN PRNRF: 0 cyclobenzaprine 10 mg tablet 10 mg PO Q8H PRN PRNRF: 0 atorvastatin 40 mg tablet 40 mg PO DAILY RF: 0 prednisone 10 mg tablet 10 mg PO DAILY RF: 0 cetirizine 10 mg tablet 10 mg PO DAILY RF: 0 hydrocodone-acetaminophen 5-325 mg tablet 1 tab PO Q8H PRN PRNRF: 0 cyanocobalamin (vitamin B-12) [Vitamin B-12] 1,000 mcg tablet 1,000 mcg PO DAILY RF: 0 aspirin 81 mg tablet,delayed release (DR/EC) 81 mg PO DAILY RF: 0 bupropion HCl 100 mg tablet sustained-release 12 hr 100 mg PO DAILY RF: 0 magnesium oxide 400 mg (241.3 mg magnesium) tablet 400 mg PO BID RF: 0 lorazepam 0.5 mg tablet 0.5 mg PO PRN PRNRF: 0 lisinopril 5 mg tablet 5 mg PO DAILY RF: 0 pyridoxine (vitamin B6) 100 mg tablet 100 mg PO DAILY RF: 0 fluticasone propionate 50 mcg/actuation spray,suspension 1 spray INTRANASAL DAILY RF: 0 duloxetine 30 mg capsule,delayed release(DR/EC) 30 mg PO DAILY RF: 0 duloxetine 60 mg capsule,delayed release(DR/EC) 60 mg PO DAILY RF: 0 Dexilant 60 mg capsule,biphase delayed releas 60 mg PO DAILY RF: 0 Flovent HFA 110 mcg/actuation Hfa Aerosol Inhaler 1 puff INHALATION BID PRNRF: 0 docusate sodium 250 mg Capsule 250 mg PO DAILY PRNRF: 0 Discharge Instructions Instructions: Chest Pain (ED), Hypomagnesemia (ED) Additional Instructions: Your work-up here is reassuring. I do not see any evidence of acute heart disease. Your symptoms may have been associated with your elevated glucose. When you are experiencing low glucose, please try to correct more safely to prevent overshooting. I would like you to follow-up with your primary care next week. Please discussed the need for outpatient stress testing. However, you will likely need to get through your recovery from recent COVID-19 infection. If you develop increased shortness of breath, recurrent chest pain or other new/worsening symptoms please seek care urgently Referrals: Maylin Garcia [Primary Care Provider] - Discharge Data Discharge Date/Time-TO BE ENTERED AT DEPARTURE: 12/13/20 16:53 Medical Decision Making Patient is a pleasant 60-year-old female brought in via EMS she complained of chest pain. Patient was recently admitted for COVID-19. Has had tachycardia, shortness of breath and oxygen requirement and diagnosis. She reports that this seems to be at her baseline has not worsened at all today. States she woke up this morning feeling asymptomatic to check her glucose and noted her glucose to be 60. Reports that she subsequently ate spoonfuls of peanut butter, plan for sandwich, orange. Reports that she rechecked her glucose she found to be elevated at 300. Reports that when she has hyperglycemia, she developed chest pain. She reports that the length between chest discomfort and hyperglycemia has been ongoing for the past several months. She reports that she then took 3 sublingual nitroglycerin and Ativan. Symptoms are currently resolved. EMS gave patient aspirin prior to arrival. She reported when she did have pain that radiated under the right breast and towards the right arm. No pain radiating to her back. Past medical history pertinent for COVID-19, CAD, diabetes, hypertension, GERD, CKD, COPD, anxiety depression. On exam, patient appears nontoxic. She appears to be at her baseline. Speaking in full sentences. She is nontender baseline 2 L of oxygen and 100%. No respiratory distress. Lungs are clear. Normal cardiac exam. No lower extremity edema or calf tenderness. Abdomen is benign. Considered ACS, particular given history. Could also be associated with her hyperglycemia symptoms and anxiety. Unclear which resolved the pain, the nitro or the Ativan. History is not consistent with pulmonary embolism, dissection, pneumothorax. Patient appears nontoxic at this time. We will keep on child monitor. EKG was obtained and reviewed by Dr. Tinsley. Patient is in a sinus tachycardic rhythm. No acute ischemic changes are noted. Labs reviewed. No leukocytosis. Patient is anemic with a hemoglobin of 10.3, this is baseline for the patient. Coags are normal. CMP significant for BUN of 48. This is baseline for the patient. His creatinine is elevated 2.0, again this is baseline for the patient. Glucose 251. Initial troponin is less than 0.05. Plan for repeat 2-hour troponin. Patient continues to be asymptomatic discussed and comfortably. FINDINGS: Heart size unchanged. Mediastinum unchanged. There is no radiographic improvement in the extensive bilateral infiltrates. No obvious pleural effusions No obvious osseous findings. IMPRESSION: Persistent bilateral extensive infiltrates. No improvement. Recommend testing forCovid-19 Repeat troponin remains <0.05. HR downtrending, currently 104. She has been tachycardic since her COVID diagnosis. Discussed findings with the patient. She has remained asymptomatic since yohan here. She does have cardiac history, I recommend outpatient stress testing. However, her history today is more consistent with symptoms associated with her quick swings in glucose rather than ACS. She has not had exertional SOB. At this time, patient would not likely do well with a stress test as she is still recovering from COVID and is still requiring O2. I advised close f/u with PCP and will defer referral to them once she is medically able to do so. Patient was given strict return precautions. We also discussed how she should respond to a low glucose and advised she not over eat. She states thits is her typical response and that she normally has rebound hyperglycemia as a result. All of her questions and concerns were addressed, she is in agreement with this plan. HPI General Mode of arrival: EMS. Date/Time Provider Initiated Documentation: 12/13/20 10:32. Limitations to Documentation: no limitations. Information obtained by: patient, EMS, RN notes reviewed and old records reviewed. History of Present Illness 60 year old F presents to the emergency department with the chief complaint of chest pain, described as moderate and similar to prior episodes, with intensity rated at 1 (reports no pain at this time). Quality is described as aching, and is localized to the chest. Patient reports radiation to (under right breast to right arm). Patient started experiencing this minute(s) and it has been now resolved. Medication improves symptom(s), (took nitro and ativan) Other factors that worsen symptoms (reports pain with hyperglycemia) . Patient notes no other symptoms.. Patient did receive the following treatments prior to arrival, other (nitro x 3, ativan) Related Data Home Medications Medication Instructions Recorded Confirmed zolpidem 10 mg PO HS PRN 12/19/15 12/13/20 nitroglycerin [Nitrostat] 0.4 mg SUBLINGUAL PRN PRN 06/01/17 12/13/20 Narcan 4 mg INTRANASAL PRN PRN 09/10/19 12/13/20 nystatin 5 ml PO QID PRN PRN 09/10/19 12/13/20 rolling walker with seat #1 ea 01/12/20 01/12/20 Dexilant 60 mg PO DAILY 06/24/20 12/13/20 Flovent HFA 1 puff INHALATION BID PRN 06/24/20 12/13/20 aspirin 81 mg PO DAILY 06/24/20 12/13/20 atorvastatin 40 mg PO DAILY 06/24/20 12/13/20 bupropion HCl 100 mg PO DAILY 06/24/20 12/13/20 cetirizine 10 mg PO DAILY 06/24/20 12/13/20 cyanocobalamin (vitamin B-12) 1,000 mcg PO DAILY 06/24/20 11/15/20 [Vitamin B-12] cyclobenzaprine 10 mg PO Q8H PRN PRN 06/24/20 12/13/20 duloxetine 30 mg PO DAILY 06/24/20 11/15/20 duloxetine 60 mg PO DAILY 06/24/20 12/13/20 fluticasone propionate 1 spray INTRANASAL DAILY 06/24/20 12/13/20 hydrocodone-acetaminophen 1 tab PO Q8H PRN PRN 06/24/20 12/13/20 lisinopril 5 mg PO DAILY 06/24/20 12/13/20 lorazepam 0.5 mg PO PRN PRN 06/24/20 12/13/20 magnesium oxide 400 mg PO BID 06/24/20 12/13/20 prednisone 10 mg PO DAILY 06/24/20 11/15/20 pyridoxine (vitamin B6) 100 mg PO DAILY 06/24/20 12/13/20 docusate sodium 250 mg PO DAILY PRN 07/16/20 11/15/20 insulin aspart U-100 [Novolog 2 - 20 units SUB-Q 0800,1200,1700 11/15/20 12/13/20 Flexpen U-100 Insulin] Basaglar KwikPen U-100 Insulin 25 unit SUBCUT DAILY #0 ml 11/23/20 12/13/20 Previous Rx's Medication Instructions Recorded rolling walker with seat #1 ea 01/12/20 Basaglar KwikPen U-100 Insulin 25 unit SUBCUT DAILY #0 ml 11/23/20 Allergies Allergy/AdvReac Type Severity Reaction Status Date / Time quetiapine [From Seroquel] Allergy Intermediate Unverified 12/13/20 10:48 amoxicillin [From Augmentin] Allergy Unverified 12/13/20 10:48 clavulanic acid Allergy Unverified 12/13/20 10:48 [From Augmentin] Penicillins Allergy Unverified 12/13/20 10:48 Sulfa (Sulfonamide Allergy Unverified 12/13/20 10:48 Antibiotics) exenatide [From [place]] AdvReac Intermediate diarrhea Unverified 12/13/20 10:48 metformin AdvReac Intermediate diarrhea Unverified 12/13/20 10:48 amitriptyline AdvReac made my Unverified 12/13/20 10:48 face go numb amoxicillin trihydrate AdvReac acute Unverified 12/13/20 10:48 [From Augmentin] kidney failure NSAIDS (Non-Steroidal AdvReac stage III Unverified 12/13/20 10:48 Anti-Inflamma kidney disease potassium clavulanate AdvReac acute Unverified 12/13/20 10:48 [From Augmentin] kidney failure General SADE: 2 Review of Systems Constitutional Constitutional: Reports as per HPI, Denies chills, Denies fever(s), Denies headache(s), Denies lethargy and Denies poor appetite Eyes Eyes: Denies change in vision ENT Ears, Nose, Mouth, and Throat: Denies dizziness and Denies headache(s) Cardiovascular Cardiovascular: Reports as per HPI, Reports chest pain (reports pain when hyperglycemic), Denies chest pain at rest, Denies chest pain with activity, Denies lightheadedness, Reports radiating jaw, neck or arm pain, Denies palpitations, Reports dyspnea (since having COVID last month, on home O2) and Reports dyspnea on exertion (since COVID dx) Respiratory Respiratory: Reports as per HPI, Denies chest congestion, Denies cough, Denies pain on inspiration, Denies pain with cough, Reports dyspnea (since having COVID last month, on home O2), Reports dyspnea on exertion (since COVID dx) and Denies wheezing Gastrointestinal Gastrointestinal: Reports as per HPI, Denies abdominal pain, Denies diarrhea, Denies nausea and Denies vomiting Musculoskeletal Musculoskeletal: Reports as per HPI and Denies back pain Integumentary/Breasts Skin/Breast: Reports as per HPI and Denies rash Neurologic Neurologic: Reports as per HPI, Denies dizziness and Denies headache(s) Endocrine Endocrine: Denies palpitations Allergic/Immunologic Allergic/Immunologic: Denies wheezing [facility] Medical History Acute exacerbation of chronic obstructive airways disease Acute sinusitis Allergic rhinitis Anemia Benign neoplasm of peripheral 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 No complications. Cholecystectomy Coronary Stent H/O lumpectomy Hx of tubal ligation Family History Brother Diabetes Hypertension Heart disease Stroke Obesity Chronic headaches Arthritis Brother Arthritis Chronic headaches Diabetes Heart disease Hypertension Obesity Stroke Father Heart disease Stroke Hypertension Chronic headaches Sister Diabetes Obesity Osteoporosis Daughter Migraine Obesity Brother Arthritis Diabetes Chronic headaches Hypertension Obesity Stroke Mother Asthma Arthritis Diabetes Obesity Stroke Glaucoma Social History Smoking/Tobacco Use Status: Former Tobacco Use Quit Date: 04/13/19 Pack-years: 45 Tobacco: How many years used: 45 Quit status: considering quitting Smoking risk assessment performed?: Yes Alcohol Intake: never Drug use: Never Substance use type: does not use Details: Quit smoking 6 months ago. Household members: friend(s) Housing: apartment Number of Children: 3 number of grandchildren: 14 current occupation: none What is your relationship status?: Panel score (0-1 are the most socially isolated patients): 0 What type of physical activity do you participate in: none Do you feel safe at home: Yes Do you feel safe in your relationship?: Yes Exam Const General: cooperative, healthy appearing, comfortable, no acute distress and well developed Nutritional Appearance: well nourished and overweight Orientation: alert, awake and oriented x3 HENMT Head: normal to inspection Ears: hearing grossly normal bilaterally Mouth: moist mucous membranes Chest Chest: normal inspection of the chest, normal palpation of entire chest wall and no crepitus Resp Effort & Inspection: normal respiratory effort, able to speak in complete sentences and no respiratory distress Auscultation: clear to auscultation bilaterally, no rales, no rhonchi and no wheezes Cardio Rate: tachycardic Rhythm: regular rhythm Heart Sounds: S1 normal and S2 normal GI Inspection: normal to inspection, no edema and non-distended Palpation: soft, no hepatosplenomegaly, not firm, no guarding, not rigid and nontender Auscultation: normal bowel sounds Skin General skin exam: no rashes or lesions noted Trauma: no lacerations or abrasions Neuro General: patient alert, patient awake and patient oriented x3 Cognition: normal cognition Speech: speech normal Extrem General: normal to inspection, capillary refill normal, no pedal edema and no calf tenderness Psych Appearance: grossly normal and well kempt Mental Status: mental status grossly normal Speech and Movement: speech and movement normal
--- NOTE | 2020-12-13 11:10 | DI.RAD_ITS ---
EXAM: XR PORTABLE CHEST AP CLINICAL HISTORY: chest pain, + covid, r/o acute disease. TECHNIQUE: 2D digital imaging was performed. COMPARISON: Chest x-ray 11/15/2020 FINDINGS: Heart size unchanged. Mediastinum unchanged. There is no radiographic improvement in the extensive bilateral infiltrates. No obvious pleural effusions No obvious osseous findings. IMPRESSION: Persistent bilateral extensive infiltrates. No improvement. Recommend testing forCovid-19 DATA REPOSITORY: RADIATION DOSE DELIVERED: All CT scans at this facility use at least one of these dose optimization techniques: automated exposure control; mA and/or kV adjustment per patient size (includes targeted e xams where dose is matched to clinical indication); or iterative reconstruction.
[2020-12-13 11:32] LABS: Abs Immature Grans 0.22 10^3/uL (0.0-0.06); Absolute Basophil Count 0.08 10^3/uL (0.0-0.2); Absolute Eosinophil Count 0.28 10^3/uL (0.0-0.7); Absolute Lymphocyte Count 2.76 10^3/uL (1.2-3.4); Absolute Monocyte Count 0.72 10^3/uL (0.1-0.8); Absolute Neutrophil Count 5.98 10^3/uL (1.2-6.7); Basophils % 0.8; Eosinophils % 2.8; HCT 31.6 % (36.0-46.0); HGB 10.3 g/dL (11.2-15.7); Immature Grans % 2.2; Lymphocytes % 27.5; MCH 30.1 pg (27.0-33.0); MCHC 32.6 % (32.0-36.0); MCV 92.4 fL (80-95); MPV 9.6 fL (8.0-11.0); Monocytes % 7.2; Neutrophils % 59.5; Nucleated RBC 0 %; Platelet Count 365 10^3/uL (130-400); RBC 3.42 10^6/uL (3.93-5.22); RDW 14.1 % (11.7-14.6); RDW-SD 46.1 fL; WBC 10.04 10^3/uL (4.4-10.8)
[2020-12-13 11:43] LABS: Prothrombin Time 9.8 sec (9.3-11.0)
[2020-12-13 11:53] LABS: ALT 25 U/L (14-59); AST 12 U/L (15-37); Albumin 2.8 g/dL (3.4-5.0); Alkaline Phosphatase 78 U/L (46-116); BUN 48 mg/dL (7-18); Bilirubin, Total 0.3 mg/dL (0.2-1.0); Calcium 8.5 mg/dL (8.5-10.1); Chloride 105 mmol/L (98-107); Estimated GFR 25.42 (mL/min/1.73m2); Glucose 251 mg/dL (74-106); Magnesium 1.2 mg/dL (1.8-2.4); Potassium 3.9 mmol/L (3.5-5.1); Sodium 140 mmol/L (136-145)
[2020-12-13 11:55] LABS: Troponin I < 0.05 ng/mL (<0.06)
[2020-12-13 13:45] LABS: Troponin I < 0.05 ng/mL (<0.06)
--- NOTE | 2020-12-13 14:00 | RT.EKG_ITS ---
APPROVED REPORT Exam: Resting ECG Patient Location: E HR:105 bpm ECG Measurements Heart Rate 105 AXIS VA 159 P 49 QRSd 69 QRS -13 QT 332 T 49 QTc 441 Conclusion Sinus tachycardia...rate> 99 Inferior infarct, old...Q >35mS, II III aVF Anteroseptal infarct, old...Q >40mS, V1-V2 I have reviewed and interpreted ECG and agree with software generated interpretation.
[2020-12-13 14:51] LABS: Troponin I < 0.05 ng/mL (<0.06)
[2020-12-13] MEDS: Magnesium Oxide 400 MG TAB 800 MG PO (16:41)
== END 2020-12-13 16:53 | disposition home or self-care (01) ==
PROVIDERS: Physician Assistant; Emergency Provider Physician Assistant; PCP Nurse Practitioner Family
DX: R07.89 Other chest pain (principal); E83.42 Hypomagnesemia
CPT/HCPCS: 36416; 80053; 82962; 93005; 99284; 71045; 83735; 84484; 85025; 85610; 85730; 93010

== ENCOUNTER → 2021-01-09 14:39 | Outpatient (BNVA) | payer MEDICARE, MEDICAID, SELFPAY | PROVIDERS: PCP Nurse Practitioner Family; Referring Provider Nurse Practitioner Family; Visit Provider Internal Medicine Cardiovascular Disease | DX: R07.89 Other chest pain (principal); I25.119 Atherosclerotic heart disease of native coronary artery with unspecified angina pectoris; R00.0 Tachycardia, unspecified | CPT/HCPCS: 99214; 93225 ==

== ENCOUNTER 2021-01-09 15:08 | Outpatient (RCR) | payer MEDICARE, MEDICAID, SELFPAY ==
--- NOTE | 2021-01-09 15:00 | HOLTER_ITS ---
APPROVED REPORT Conclusion This is a 48-hour monitor ordered for indication of tachycardia. Patient was normal sinus rhythm for the majority of the recording with an average heart rate of 83 bp m. There were no episodes of ventricular tachycardia nor any episodes of supraventricular tachycardia. There were rare PACs/PVCs. There were no episodes of atrial fibrillation, no pauses greater than 3 seconds and no evidence of hi gh degree heart block. There were no patient triggered events.
== END 2021-01-22 23:59 | disposition home or self-care (01) ==
LOC: RT 15:08
PROVIDERS: PCP Nurse Practitioner Family; Visit Provider Internal Medicine Cardiovascular Disease
DX: R00.0 Tachycardia, unspecified (principal)
CPT/HCPCS: 93227; 93225; 93226

== ENCOUNTER 2021-04-05 22:30 | Emergency (ER) | payer MEDICARE, MEDICAID, SELFPAY ==
[2021-04-05 22:39] VITALS: BP 145/71; PULSE 92; RESP 20; TEMP 36.4; O2SAT 99
--- NOTE | 2021-04-05 22:52 | W.ED.GENAD ---
Discharge Plan Disposition Patient Disposition: HOME Condition: Good Discharge Details Clinical Impression: Hypertension Primary Care Provider: Maylin Garcia ED Provider: Jean-Pierre Salmon [place] Meds and New Rx's Prescriptions: Continued nystatin 100,000 unit/mL Suspension 5 ml PO QID PRN PRNRF: 0 Narcan 4 mg/actuation [place],Non-Aerosol 4 mg INTRANASAL PRN PRNRF: 0 (DME) rolling walker with seat Qty: 1 RF: 0 metoprolol succinate 25 mg tablet extended release 24 hr 25 mg PO DAILY RF: 0 zolpidem 10 MG tablet 10 mg PO HS PRNRF: 0 insulin aspart U-100 [Novolog Flexpen U-100 Insulin] 300 UNITS/3 ML insulin pen 2 - 20 units Sub-Q 0800,1200,1700 RF: 0 Basaglar KwikPen U-100 Insulin 100 unit/mL (3 mL) insulin pen 25 unit SUBCUT DAILY Qty: 0 RF: 0 nitroglycerin [Nitrostat] 0.4 MG tablet, sublingual 0.4 mg Sublingual PRN PRNRF: 0 cyclobenzaprine 10 mg tablet 10 mg PO Q8H PRN PRNRF: 0 atorvastatin 40 mg tablet 40 mg PO DAILY RF: 0 prednisone 10 mg tablet 10 mg PO DAILY RF: 0 cetirizine 10 mg tablet 10 mg PO DAILY RF: 0 hydrocodone-acetaminophen 5-325 mg tablet 1 tab PO Q8H PRN PRNRF: 0 cyanocobalamin (vitamin B-12) [Vitamin B-12] 1,000 mcg tablet 1,000 mcg PO DAILY RF: 0 aspirin 81 mg tablet,delayed release (DR/EC) 81 mg PO DAILY RF: 0 bupropion HCl 100 mg tablet sustained-release 12 hr 100 mg PO DAILY RF: 0 magnesium oxide 400 mg (241.3 mg magnesium) tablet 400 mg PO BID RF: 0 lorazepam 0.5 mg tablet 0.5 mg PO PRN PRNRF: 0 lisinopril 5 mg tablet 5 mg PO DAILY RF: 0 pyridoxine (vitamin B6) 100 mg tablet 100 mg PO DAILY RF: 0 fluticasone propionate 50 mcg/actuation spray,suspension 1 spray INTRANASAL DAILY RF: 0 duloxetine 30 mg capsule,delayed release(DR/EC) 30 mg PO DAILY RF: 0 duloxetine 60 mg capsule,delayed release(DR/EC) 60 mg PO DAILY RF: 0 Dexilant 60 mg capsule,biphase delayed releas 60 mg PO DAILY RF: 0 Flovent HFA 110 mcg/actuation Hfa Aerosol Inhaler 1 puff INHALATION BID PRNRF: 0 docusate sodium 250 mg Capsule 250 mg PO DAILY PRNRF: 0 Discharge Instructions Instructions: Hypertension (ED) Additional Instructions: Blood pressure will vary throughout the day. Typically, we do not become overly concerned unless blood pressures are in the 200/100 range persistently. Continue your current medications. Follow-up with primary care. Return to ED for persistently elevated blood pressures, severe headache, chest pain, shortness of breath. Referrals: Maylin Garcia [Primary Care Provider] - Discharge Data Discharge Date/Time-TO BE ENTERED AT DEPARTURE: 04/05/21 23:06 Medical Decision Making Patient with normal vital signs here. Had taken her blood pressure medication a couple hours before arrival. Unremarkable exam, normal neurologically. Patient requesting discharge which I think is totally appropriate. Continue current medications and follow-up with primary care as needed. Return to ED for severe headache, chest pain, shortness of breath, neurologic change. HPI General Mode of arrival: ambulatory. Date/Time Provider Initiated Documentation: 04/05/21 22:48. Limitations to Documentation: no limitations. Information obtained by: patient. HPI Narrative: Patient presents to ED with complaint of elevated blood pressure. Patient reports missing her dose of blood pressure medication last night. She did take it this evening but reports BP continued to be elevated with highest reading of 160/95. Patient with mild headache but denies having chest pain, shortness of breath, neurologic change. Has had some sugar issues with low sugar which responded to eating today. She has otherwise not felt unwell. Here she feels fine in triage her blood pressure is normal. Related Data Home Medications Medication Instructions Recorded Confirmed zolpidem 10 mg PO HS PRN 12/19/15 04/05/21 nitroglycerin [Nitrostat] 0.4 mg SUBLINGUAL PRN PRN 06/01/17 04/05/21 Narcan 4 mg INTRANASAL PRN PRN 09/10/19 04/05/21 nystatin 5 ml PO QID PRN PRN 09/10/19 04/05/21 rolling walker with seat #1 ea 01/12/20 01/12/20 Dexilant 60 mg PO DAILY 06/24/20 04/05/21 Flovent HFA 1 puff INHALATION BID PRN 06/24/20 04/05/21 aspirin 81 mg PO DAILY 06/24/20 04/05/21 atorvastatin 40 mg PO DAILY 06/24/20 04/05/21 bupropion HCl 100 mg PO DAILY 06/24/20 04/05/21 cetirizine 10 mg PO DAILY 06/24/20 04/05/21 cyanocobalamin (vitamin B-12) 1,000 mcg PO DAILY 06/24/20 04/05/21 [Vitamin B-12] cyclobenzaprine 10 mg PO Q8H PRN PRN 06/24/20 04/05/21 duloxetine 30 mg PO DAILY 06/24/20 04/05/21 duloxetine 60 mg PO DAILY 06/24/20 04/05/21 fluticasone propionate 1 spray INTRANASAL DAILY 06/24/20 04/05/21 hydrocodone-acetaminophen 1 tab PO Q8H PRN PRN 06/24/20 04/05/21 lisinopril 5 mg PO DAILY 06/24/20 04/05/21 lorazepam 0.5 mg PO PRN PRN 06/24/20 04/05/21 magnesium oxide 400 mg PO BID 06/24/20 04/05/21 prednisone 10 mg PO DAILY 06/24/20 04/05/21 pyridoxine (vitamin B6) 100 mg PO DAILY 06/24/20 04/05/21 docusate sodium 250 mg PO DAILY PRN 07/16/20 04/05/21 insulin aspart U-100 [Novolog 2 - 20 units SUB-Q 0800,1200,1700 11/15/20 04/05/21 Flexpen U-100 Insulin] Basaglar KwikPen U-100 Insulin 25 unit SUBCUT DAILY #0 ml 11/23/20 04/05/21 metoprolol succinate 25 mg 25 mg PO DAILY 01/09/21 04/05/21 tablet,extended release 24 hr Previous Rx's Medication Instructions Recorded rolling walker with seat #1 ea 01/12/20 Basaglar KwikPen U-100 Insulin 25 unit SUBCUT DAILY #0 ml 11/23/20 Allergies Allergy/AdvReac Type Severity Reaction Status Date / Time quetiapine [From Seroquel] Allergy Intermediate Unverified 04/05/21 22:45 amoxicillin [From Augmentin] Allergy Unverified 04/05/21 22:45 clavulanic acid Allergy Unverified 04/05/21 22:45 [From Augmentin] Penicillins Allergy Unverified 04/05/21 22:45 Sulfa (Sulfonamide Allergy Unverified 04/05/21 22:45 Antibiotics) exenatide [From [place]] AdvReac Intermediate diarrhea Unverified 04/05/21 22:45 metformin AdvReac Intermediate diarrhea Unverified 04/05/21 22:45 amitriptyline AdvReac made my Unverified 04/05/21 22:45 face go numb amoxicillin trihydrate AdvReac acute Unverified 04/05/21 22:45 [From Augmentin] kidney failure NSAIDS (Non-Steroidal AdvReac stage III Unverified 04/05/21 22:45 Anti-Inflamma kidney disease potassium clavulanate AdvReac acute Unverified 04/05/21 22:45 [From Augmentin] kidney failure General Stated Complaint: GenMedical SADE: 3 Review of Systems Narrative: As documented in HPI otherwise negative as below. Const: no fever, chills, weakness Resp: no cough, SOB, pleuritic pain CV: no CP, diaphoresis, edema, syncope GI: no abdominal pain, nausea, vomiting, diarrhea Neuro: no numbness, focal weakness, confusion PFSH Medical History Acute exacerbation of chronic obstructive airways disease Acute sinusitis Allergic rhinitis Anemia Benign neoplasm of peripheral 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 No complications. Cholecystectomy Coronary Stent H/O lumpectomy Hx of tubal ligation Family History Brother Diabetes Hypertension Heart disease Stroke Obesity Chronic headaches Arthritis Brother Arthritis Chronic headaches Diabetes Heart disease Hypertension Obesity Stroke Father Heart disease Stroke Hypertension Chronic headaches Sister Diabetes Obesity Osteoporosis Daughter Migraine Obesity Brother Arthritis Diabetes Chronic headaches Hypertension Obesity Stroke Mother Asthma Arthritis Diabetes Obesity Stroke Glaucoma Social History Smoking/Tobacco Use Status: Former Tobacco Use Quit Date: 04/13/19 Pack-years: 45 Tobacco: How many years used: 45 Quit status: considering quitting Smoking risk assessment performed?: Yes Alcohol Intake: never Drug use: Never Substance use type: does not use Details: Quit smoking 6 months ago. Household members: friend(s) Housing: apartment Number of Children: 3 number of grandchildren: 14 current occupation: none What is your relationship status?: Panel score (0-1 are the most socially isolated patients): 0 What type of physical activity do you participate in: none Do you feel safe at home: Yes Do you feel safe in your relationship?: Yes Exam Narrative Exam Narrative: Const: WDWN female in NAD. HEENT: NC/AT. Normal facial exam. Eyes: Normal conjunctiva and sclera. Neck: Supple. Trachea midline. Lungs: Normal respiratory effort. Lungs are clear. Cor: RRR without murmur/gallop. Good radial pulses. Neuro: A+O x 3. Normal speech, mentation, gait. Cranial nerves II - XII grossly intact. No gross motor or sensory deficit. Ext: No C/C/E. Skin: Warm and dry without rash. Course Vital Signs Vital signs: Vital Signs Temperature 97.5 F L 04/05/21 22:39 Pulse 92 H 04/05/21 22:39 Respiratory Rate 04/05/21 22:39 Blood Pressure 145/71 H 04/05/21 22:39 Pulse Oximetry 99 04/05/21 22:39 Temperature 97.5 F L 04/05/21 22:39 Temperature Source Temporal Artery Scan 04/05/21 22:39 Pulse 92 H 04/05/21 22:39 Respiratory Rate 20 04/05/21 22:39 Respiratory Effort Non-Labored 04/05/21 22:48 Respiratory Depth Normal 04/05/21 22:48 Respiratory Pattern Normal 04/05/21 22:48 Blood Pressure 145/71 H 04/05/21 22:39 Blood Pressure Position Sitting 04/05/21 22:39 Pulse Oximetry 99 04/05/21 22:39 Oxygen Delivery Method Room Air 04/05/21 22:39 Oxygen Flow Rate 0 04/05/21 22:39 Pain Level 4 04/05/21 22:39
[2021-04-05 22:55] VITALS: BP 128/56; PULSE 95; O2SAT 98
[2021-04-05 22:56] VITALS: O2SAT 98
[2021-04-05 23:00] VITALS: O2SAT 97
[2021-04-05 23:02] VITALS: BP 139/57; PULSE 90
== END 2021-04-05 23:06 | disposition home or self-care (01) ==
PROVIDERS: Emergency Provider Emergency Medicine; PCP Nurse Practitioner Family
DX: I10 Essential (primary) hypertension (principal)
CPT/HCPCS: 99281; 99282

== ENCOUNTER 2021-06-28 12:12 | Emergency (ER) | payer MEDICARE, MEDICAID, SELFPAY ==
[2021-06-28 12:48] VITALS: BP 130/64; PULSE 120; RESP 16; TEMP 36.3; O2SAT 98
--- NOTE | 2021-06-28 13:42 | ED.GENADUL_ITS ---
Discharge Plan Disposition Patient Disposition: HOME Condition: Stable Discharge Details Clinical Impression: URI (upper respiratory infection) Primary Care Provider: Maylin Garcia ED Provider: Adilene Tinsley Home Meds and New Rx's Prescriptions: Continued nystatin 100,000 unit/mL Suspension 5 ml PO QID PRN PRNRF: 0 Narcan 4 mg/actuation [place],Non-Aerosol 4 mg INTRANASAL PRN PRNRF: 0 (DME) rolling walker with seat Qty: 1 RF: 0 metoprolol succinate 25 mg tablet extended release 24 hr 25 mg PO DAILY RF: 0 zolpidem 10 MG tablet 10 mg PO HS PRNRF: 0 insulin aspart U-100 [Novolog Flexpen U-100 Insulin] 300 UNITS/3 ML insulin pen 2 - 20 units Sub-Q 0800,1200,1700 RF: 0 Basaglar KwikPen U-100 Insulin 100 unit/mL (3 mL) insulin pen 25 unit SUBCUT DAILY Qty: 0 RF: 0 nitroglycerin [Nitrostat] 0.4 MG tablet, sublingual 0.4 mg Sublingual PRN PRNRF: 0 cyclobenzaprine 10 mg tablet 10 mg PO Q8H PRN PRNRF: 0 atorvastatin 40 mg tablet 40 mg PO DAILY RF: 0 prednisone 10 mg tablet 5 mg PO DAILY RF: 0 cetirizine 10 mg tablet 10 mg PO DAILY RF: 0 hydrocodone-acetaminophen 5-325 mg tablet 1 tab PO Q8H PRN PRNRF: 0 cyanocobalamin (vitamin B-12) [Vitamin B-12] 1,000 mcg tablet 1,000 mcg PO DAILY RF: 0 aspirin 81 mg tablet,delayed release (DR/EC) 81 mg PO DAILY RF: 0 bupropion HCl 100 mg tablet sustained-release 12 hr 100 mg PO DAILY RF: 0 magnesium oxide 400 mg (241.3 mg magnesium) tablet 400 mg PO BID RF: 0 lorazepam 0.5 mg tablet 0.5 mg PO PRN PRNRF: 0 lisinopril 5 mg tablet 5 mg PO DAILY RF: 0 pyridoxine (vitamin B6) 100 mg tablet 100 mg PO DAILY RF: 0 fluticasone propionate 50 mcg/actuation spray,suspension 1 spray INTRANASAL DAILY RF: 0 duloxetine 30 mg capsule,delayed release(DR/EC) 30 mg PO DAILY RF: 0 duloxetine 60 mg capsule,delayed release(DR/EC) 60 mg PO DAILY RF: 0 Dexilant 60 mg capsule,biphase delayed releas 60 mg PO DAILY RF: 0 Flovent HFA 110 mcg/actuation Hfa Aerosol Inhaler 1 puff INHALATION BID PRNRF: 0 docusate sodium 250 mg Capsule 250 mg PO DAILY PRNRF: 0 Discharge Instructions Instructions: Upper Respiratory Infection (ED) Additional Instructions: Drink plenty of fluids and get plenty of rest. Take Tylenol as needed and directed for pain or fever. You can try [id number] cough and cold medication to help with your symptoms for supportive care. You will be contacted by the hospital regarding your Covid test result. You can also access patient portal for your result. Follow-up with your primary care doctor in 1 week. Return to the emergency department with any worsening or new concerning symptoms. Stand Alone Forms: PENDING COVID-19 TESTING Discharge Data Discharge Physician: Adilene Tinsley Medical Decision Making 61-year-old female previously diagnosed with COVID-19 virus in October 2020 who is now fully vaccinated presents for COVID-19 testing. She has had nasal congestion and discharge, sneezing, sore throat and now cough starting today. Heart rate is elevated which has been consistent since her COVID-19 diagnosis in October. She denies any complaint of chest pain or shortness of breath. Her oxygen saturation is 100% on room air. She has a normal ENT exam. Her lungs are clear. No meningeal signs. She is speaking in full sentences and appears nontoxic. A send out Covid swab was obtained. Patient states she cannot take Decadron as she is on steroids chronically and cannot take ibuprofen due to her chronic kidney disease. Discussed with patient that as he has no fever or purulent discharge or sputum, do not see an indication for antibiotic use and she is agreeable. Advised that she will be informed of her COVID-19 test when available or she can access patient portal. Advised to follow up with the primary care doctor for re-evaluation. Usual and customary return precautions given prior to discharge. Medical Records Medical records reviewed: Yes I reviewed the patient's medical records. HPI General Mode of arrival: ambulatory . Date/Time Provider Initiated Documentation: 06/28/21 12:26 . Limitations to Documentation: no limitations . Information obtained by: patient . HPI Narrative: Patient is a 51-year-old female with a history of COVID-19 virus in October 2020 presents for COVID-19 testing. She states for the past few days she has had sneezing, runny nose, clear nasal discharge, and now today has developed sore throat which she feels has triggered a cough. She states she is fully vaccinated for Covid and was planning on a her Covid booster next week. She denies any known exposure to Covid. She denies any known fever, vomiting or diarrhea. She denies any significant chest pain or shortness of breath. She states she went to the Covid tent today for a Covid test but this was unavailable and she was referred to the ER. Related Data Home Medications Medication Instructions Recorded Confirmed zolpidem 10 mg PO HS PRN 12/19/15 06/28/21 nitroglycerin [Nitrostat] 0.4 mg SUBLINGUAL PRN PRN 06/01/17 06/28/21 Narcan 4 mg INTRANASAL PRN PRN 09/10/19 06/28/21 nystatin 5 ml PO QID PRN PRN 09/10/19 06/28/21 rolling walker with seat #1 ea 01/12/20 01/12/20 Dexilant 60 mg PO DAILY 06/24/20 06/28/21 Flovent HFA 1 puff INHALATION BID PRN 06/24/20 06/28/21 aspirin 81 mg PO DAILY 06/24/20 06/28/21 atorvastatin 40 mg PO DAILY 06/24/20 06/28/21 bupropion HCl 100 mg PO DAILY 06/24/20 06/28/21 cetirizine 10 mg PO DAILY 06/24/20 06/28/21 cyanocobalamin (vitamin B-12) 1,000 mcg PO DAILY 06/24/20 06/28/21 [Vitamin B-12] cyclobenzaprine 10 mg PO Q8H PRN PRN 06/24/20 06/28/21 duloxetine 30 mg PO DAILY 06/24/20 06/28/21 duloxetine 60 mg PO DAILY 06/24/20 06/28/21 fluticasone propionate 1 spray INTRANASAL DAILY 06/24/20 06/28/21 hydrocodone-acetaminophen 1 tab PO Q8H PRN PRN 06/24/20 06/28/21 lisinopril 5 mg PO DAILY 06/24/20 06/28/21 lorazepam 0.5 mg PO PRN PRN 06/24/20 06/28/21 magnesium oxide 400 mg PO BID 06/24/20 06/28/21 prednisone 5 mg PO DAILY 06/24/20 06/28/21 pyridoxine (vitamin B6) 100 mg PO DAILY 06/24/20 06/28/21 docusate sodium 250 mg PO DAILY PRN 07/16/20 06/28/21 insulin aspart U-100 [Novolog 2 - 20 units SUB-Q 0800,1200,1700 11/15/20 06/28/21 Flexpen U-100 Insulin] Basaglar KwikPen U-100 Insulin 25 unit SUBCUT DAILY #0 ml 11/23/20 06/28/21 metoprolol succinate 25 mg 25 mg PO DAILY 01/09/21 06/28/21 tablet,extended release 24 hr Previous Rx's Medication Instructions Recorded rolling walker with seat #1 ea 01/12/20 Basaglar KwikPen U-100 Insulin 25 unit SUBCUT DAILY #0 ml 11/23/20 Allergies Allergy/AdvReac Type Severity Reaction Status Date / Time quetiapine [From Seroquel] Allergy Intermediate Unverified 06/28/21 12:53 amoxicillin [From Augmentin] Allergy Unverified 06/28/21 12:53 clavulanic acid Allergy Unverified 06/28/21 12:53 [From Augmentin] Penicillins Allergy Unverified 06/28/21 12:53 Sulfa (Sulfonamide Allergy Unverified 06/28/21 12:53 Antibiotics) exenatide [From [place]] AdvReac Intermediate diarrhea Unverified 06/28/21 12:53 metformin AdvReac Intermediate diarrhea Unverified 06/28/21 12:53 amitriptyline AdvReac made my Unverified 06/28/21 12:53 face go numb amoxicillin trihydrate AdvReac acute Unverified 06/28/21 12:53 [From Augmentin] kidney failure NSAIDS (Non-Steroidal AdvReac stage III Unverified 06/28/21 12:53 Anti-Inflamma kidney disease potassium clavulanate AdvReac acute Unverified 06/28/21 12:53 [From Augmentin] kidney failure General Stated Complaint: RespSymp SADE: 3 Review of Systems All systems reviewed & are unremarkable except as noted in HPI and below Constitutional Constitutional: Reports as per HPI, Denies chills and Denies fever(s) Eyes Eyes: Denies blurry vision ENT Ears, Nose, Mouth, and Throat: Denies dizziness, Reports nasal congestion (clear), Reports sore throat, Denies throat swelling and Reports other (sneezing) Cardiovascular Cardiovascular: Denies chest pain and Denies dyspnea Respiratory Respiratory: Reports cough and Denies dyspnea Gastrointestinal Gastrointestinal: Denies abdominal pain, Denies diarrhea and Denies vomiting Genitourinary Genitourinary: Denies hematuria and Denies dysuria Musculoskeletal Musculoskeletal: Denies back pain and Denies numbness Integumentary/Breasts Skin/Breast: Denies lesions and Denies rash Neurologic Neurologic: Denies dizziness, Denies localized weakness and Denies numbness Allergic/Immunologic Allergic/Immunologic: Denies throat swelling PFS Medical History Acute exacerbation of chronic obstructive airways disease Acute sinusitis Allergic rhinitis Anemia Benign neoplasm of peripheral 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 No complications. Cholecystectomy Coronary Stent H/O lumpectomy Hx of tubal ligation Family History Brother Diabetes Hypertension Heart disease Stroke Obesity Chronic headaches Arthritis Brother Arthritis Chronic headaches Diabetes Heart disease Hypertension Obesity Stroke Father Heart disease Stroke Hypertension Chronic headaches Sister Diabetes Obesity Osteoporosis Daughter Migraine Obesity Brother Arthritis Diabetes Chronic headaches Hypertension Obesity Stroke Mother Asthma Arthritis Diabetes Obesity Stroke Glaucoma Social History Smoking/Tobacco Use Status: Former Tobacco Use Quit Date: 04/13/19 Pack-years: 45 Tobacco: How many years used: 45 Quit status: considering quitting Smoking risk assessment performed?: Yes Alcohol Intake: never Drug use: Never Substance use type: does not use Details: Quit smoking 6 months ago. Household members: friend(s) Housing: apartment Number of Children: 3 number of grandchildren: 14 current occupation: none What is your relationship status?: Panel score (0-1 are the most socially isolated patients): 0 What type of physical activity do you participate in: none Do you feel safe at home: Yes Do you feel safe in your relationship?: Yes Exam Const General: cooperative and no acute distress HENMT Head: normal to inspection Ears: hearing grossly normal bilaterally, external ears normal and TM's normal bilaterally General nose exam: external nose normal Face and sinus: normal facial exam and no sinus tenderness Mouth: oral mucosae normal, no drooling and no trismus Throat: posterior oropharynx normal and uvula midline Eyes General: appearance normal, both eyes and all related structures Neck Neck: normal visual inspection, no meningeal signs, trachea midline, no anterior neck swelling and No submandibular swelling Resp Effort & Inspection: normal respiratory effort and able to speak in complete sentences Auscultation: clear to auscultation bilaterally Cardio Rate: regular rate Rhythm: regular rhythm Skin General skin exam: no rashes or lesions noted Neuro General: patient alert, patient awake and patient oriented x3 Motor: muscle tone normal throughout Extrem General: normal to inspection and full ROM Psych Appearance: grossly normal Affect: normal affect Course Vital Signs Vital signs: Vital Signs Temperature 97.3 F L 06/28/21 12:48 Pulse 120 H 06/28/21 12:48 Respiratory Rate 16 06/28/21 12:48 Blood Pressure 130/64 06/28/21 12:48 Pulse Oximetry 98 06/28/21 12:48 Temperature 97.3 F L 06/28/21 12:48 Temperature Source Skin 06/28/21 12:48 Pulse 120 H 06/28/21 12:48 Respiratory Rate 16 06/28/21 12:48 Respiratory Effort Non-Labored 06/28/21 12:48 Blood Pressure 130/64 06/28/21 12:48 Blood Pressure Position Sitting 06/28/21 12:48 Pulse Oximetry 98 06/28/21 12:48 Oxygen Delivery Method Room Air 06/28/21 12:48 Oxygen Flow Rate 0 06/28/21 12:48 Pain Level 8 06/28/21 12:48
[2021-06-28 14:21] VITALS: PULSE 108; TEMP 36.8; O2SAT 97
[2021-06-30 09:24] LABS: COVID-19 RT-PCR UVMMC Result Negative (Negative)
== END 2021-06-28 14:30 | disposition home or self-care (01) ==
PROVIDERS: Emergency Provider Physician Assistant; PCP Nurse Practitioner Family
DX: J06.9 Acute upper respiratory infection, unspecified (principal); Z20.822 Contact with and (suspected) exposure to COVID-19
CPT/HCPCS: 99281; U0003; U0005; 99282

== ENCOUNTER 2022-02-05 20:14 | Inpatient (IN) | payer MEDICARE, MEDICAID, SELFPAY ==
[2022-02-05] VITALS (32 sets, daily range): BP systolic 85–127; BP diastolic 50–84; PULSE 68–122; RESP 13–21; TEMP 37; O2SAT 97–100
--- NOTE | 2022-02-05 20:00 | RT.EKG_ITS ---
APPROVED REPORT Exam: Resting ECG Reason for Exam: syncopal episode Patient Location: E HR:116 bpm ECG Measurements Heart Rate 116 AXIS ND 154 P 19 QRSd 78 QRS -25 QT 340 T 108 QTc 471 Conclusion Sinus tachycardia...rate> 99 Inferior infarct, old...Q >35mS, II III aVF Probable anterior infarct, old...Q >40mS, V2-V5 Nonspecific T abnormalities, lateral leads...T <-0.10mV, I aVL V5 V6
--- NOTE | 2022-02-05 20:11 | ED.GENADUL_ITS ---
Discharge Plan Disposition Patient Disposition: [facility] INPATIENT Condition: Stable Discharge Details Clinical Impression: ISA (acute kidney injury), Pre-syncope, Headache, Abdominal pain, Urinary tract infection Primary Care Provider: Maylin Garcia ED Provider: Branden Sequeira Home Meds and New Rx's Prescriptions: No Action nystatin 100,000 unit/mL Suspension 5 ml PO QID PRN PRN Narcan 4 mg/actuation [place],Non-Aerosol 4 mg INTRANASAL PRN PRN (DME) rolling walker with seat Qty: 1 0RF Rx Instructions: As directed with ambulation metoprolol succinate 25 mg tablet extended release 24 hr 25 mg PO DAILY zolpidem 10 MG tablet 10 mg PO HS PRN insulin aspart U-100 [Novolog Flexpen U-100 Insulin] 300 UNITS/3 ML insulin pen 2 - 20 units Sub-Q 0800,1200,1700 Rx Instructions: Dispense one pen see sliding scale Basaglar KwikPen U-100 Insulin 100 unit/mL (3 mL) insulin pen 25 unit SUBCUT DAILY Qty: 0 0RF Label Comments: INJECT 50 UNITS UNDER THE SKIN DAILY DIRECTED nitroglycerin [Nitrostat] 0.4 MG tablet, sublingual 0.4 mg Sublingual PRN PRN cyclobenzaprine 10 mg tablet 10 mg PO Q8H PRN PRN atorvastatin 40 mg tablet 40 mg PO DAILY Label Comments: TAKE ONE TABLET BY MOUTH EVERY DAY prednisone 10 mg tablet 5 mg PO DAILY Label Comments: TAKE 1 TABLET BY MOUTH ONCE DAILY cetirizine 10 mg tablet 10 mg PO DAILY Label Comments: TAKE ONE TABLET BY MOUTH EVERY DAY hydrocodone-acetaminophen 5-325 mg tablet 1 tab PO Q8H PRN PRN Label Comments: TAKE ONE TABLET BY MOUTH EVERY 6 TO 8 HOURS NEEDED cyanocobalamin (vitamin B-12) [Vitamin B-12] 1,000 mcg tablet 1,000 mcg PO DAILY Label Comments: TAKE ONE TABLET BY MOUTH EVERY DAY aspirin 81 mg tablet,delayed release (DR/EC) 81 mg PO DAILY Label Comments: TAKE ONE TABLET BY MOUTH EVERY DAY bupropion HCl 100 mg tablet sustained-release 12 hr 100 mg PO DAILY Label Comments: TAKE 1 TABLET ORALLY DAILY THEN EVERY 3 DAYS INCREASE BY 1 TABLET UP TO MAX OF 3 TABLETS magnesium oxide 400 mg (241.3 mg magnesium) tablet 400 mg PO BID Label Comments: TAKE ONE TABLET BY MOUTH TWICE A DAY lorazepam 0.5 mg tablet 0.5 mg PO PRN PRN Label Comments: TAKE ONE TABLET BY MOUTH EVERY 6 HOURS NEEDED FOR PANIC lisinopril 5 mg tablet 5 mg PO DAILY Label Comments: TAKE ONE TABLET BY MOUTH EVERY DAY pyridoxine (vitamin B6) 100 mg tablet 100 mg PO DAILY Label Comments: TAKE ONE TABLET BY MOUTH EVERY DAY fluticasone propionate 50 mcg/actuation spray,suspension 1 spray INTRANASAL DAILY Label Comments: INSTILL 2 SPRAYS NASALLY DAILY duloxetine 30 mg capsule,delayed release(DR/EC) 30 mg PO DAILY Label Comments: TAKE ONE CAPSULE BY MOUTH EVERY DAY WITH 60MG duloxetine 60 mg capsule,delayed release(DR/EC) 60 mg PO DAILY Label Comments: TAKE ONE CAPSULE BY MOUTH EVERY DAY Dexilant 60 mg capsule,biphase delayed releas 60 mg PO DAILY Label Comments: TAKE ONE CAPSULE BY MOUTH EVERY DAY Flovent HFA 110 mcg/actuation Hfa Aerosol Inhaler 1 puff INHALATION BID PRN docusate sodium 250 mg Capsule 250 mg PO DAILY PRN Medical Decision Making 61 year old female with PMHx of COPD, T2DM, CAD, HTN, CKD, fibromyalgia, who comes in with cc of feeling like she might pass out. She states she felt well all day and then tonight she had an episode where she was standing started to feel lightheaded so she sat on the floor and called for her roommate who then called ems. She denies loc, chest pain, has chronic dyspnea that she states is unchanged. She denies any fevers or chills. SHe does have a mild frontal headache that started within the hour and is not the worst of her life. She has had some abdominal discomfort as well and is tender in the ruq and luq, no guarding or rebound. No rashes, no unilateral leg swelling. caox4 without focal deficits. Her BP is noted to be in the 90's systolic and HR in the 120's. This could be orthostasis but will evaluate for anemia, electrolyte abnormalities and though has no chest pain will obtain troponin. Will also obtain ct abdomen/pelvis to evaluate for cholecystitis and less likely sbo. If her renal function is sufficient will consider ct for pe as well patient stable, labs remarkable for creatinine of 2.9 and her baseline is 2.0, gfr is 15 so will defer cta for pe at this time. She feels improved after having IVF. Ua shows likely uti which could be causing her to have her general weakness, BP now 128/73 and HR 98. All imaging unremarkable. I suspect dehydration as cause for her episode earlier of presyncope, she still feels general malaise and not comfortable going home. Discussed with hospitalist and plan for admission for IV hydration and antibiotics for uti. Differential Diagnosis Differential Diagnosis: anemia, orthostasis, PE, aaa Medical Records Medical records reviewed: Yes I reviewed the patient's medical records. Imaging Data Radiologic Study: Attestation: I personally reviewed and interpreted this imaging study as follows: Imaging: CT Scan Radiologist's impression: IMPRESSION: No acute intracranial abnormality. Radiologic Study #2: Attestation: I personally reviewed and interpreted this imaging study as follows: Imaging: X-Ray Radiologist's impression: PROCEDURE INFORMATION: Exam: XR Chest Exam date and time: 02/05/2022 9:37 PM Age: 61 years old Clinical indication: Shortness of breath; Additional info: SOB TECHNIQUE: Imaging protocol: XR of the chest. Views: 2 views. COMPARISON: CR XR PORTABLE CHEST AP 12/13/2020 11:42 AM FINDINGS: Lungs: Unremarkable. No consolidation. Pleural spaces: Unremarkable. No pleural effusion. No pneumothorax. Heart/Mediastinum: Unremarkable. No cardiomegaly. Bones/joints: Unremarkable. IMPRESSION: No acute findings. Radiologic Study #3: Attestation: I personally reviewed and interpreted this imaging study as follows: Imaging: CT Scan Radiologist's impression: IMPRESSION: No acute abdominal or pelvic abnormality. Lab Data Lab results reviewed: Yes I reviewed the patient's lab results. ECG Data Attestation: I personally reviewed and interpreted this ECG (s) as follows: Prior ECG tracings: available for review Interpretation: sinus tachycardia, rate of 116, no acute st t wave ischemic changes from prior ekg HPI General Mode of arrival: EMS . Date/Time Provider Initiated Documentation: 02/05/22 20:18 . Limitations to Documentation: no limitations . Information obtained by: patient . History of Present Illness 61 year old F presents to the emergency department with the chief complaint of lightheaded, described as moderate, Patient started experiencing this hour(s) (1) and it has been intermittent. No relieving factors improve symptom(s), No exacerbating factors reported . Patient notes other (abdominal pain). Patie nt did receive the following treatments prior to arrival, none Related Data Home Medications Medication Instructions Recorded Confirmed zolpidem 10 mg tablet 10 mg PO HS PRN 12/19/15 06/28/21 nitroglycerin 0.4 mg sublingual 0.4 mg sublingual PRN PRN 06/01/17 06/28/21 tablet (Nitrostat) naloxone 4 mg/actuation nasal 4 mg intranasal PRN PRN 09/10/19 06/28/21 spray (Narcan) nystatin 100,000 unit/mL oral 5 ml PO QID PRN PRN 09/10/19 06/28/21 suspension rolling walker with seat #1 ea 01/12/20 01/12/20 aspirin 81 mg tablet,delayed 81 mg PO DAILY 06/24/20 06/28/21 release atorvastatin 40 mg tablet 40 mg PO DAILY 06/24/20 06/28/21 bupropion HCl 100 mg tablet,12 hr 100 mg PO DAILY 06/24/20 06/28/21 sustained-release cetirizine 10 mg tablet 10 mg PO DAILY 06/24/20 06/28/21 cyanocobalamin (vitamin B-12) 1,000 mcg PO DAILY 06/24/20 06/28/21 1,000 mcg tablet (Vitamin B-12) cyclobenzaprine 10 mg tablet 10 mg PO Q8H PRN PRN 06/24/20 06/28/21 dexlansoprazole 60 mg 60 mg PO DAILY 06/24/20 06/28/21 capsule,biphase delayed release (Dexilant) duloxetine 30 mg capsule,delayed 30 mg PO DAILY 06/24/20 06/28/21 release duloxetine 60 mg capsule,delayed 60 mg PO DAILY 06/24/20 06/28/21 release fluticasone propionate 110 1 puff inhalation BID PRN 06/24/20 06/28/21 mcg/actuation HFA aerosol inhaler (Flovent HFA) fluticasone propionate 50 1 spray intranasal DAILY 06/24/20 06/28/21 mcg/actuation nasal spray,suspension hydrocodone 5 mg-acetaminophen 325 1 tab PO Q8H PRN PRN 06/24/20 06/28/21 mg tablet lisinopril 5 mg tablet 5 mg PO DAILY 06/24/20 06/28/21 lorazepam 0.5 mg tablet 0.5 mg PO PRN PRN 06/24/20 06/28/21 magnesium oxide 400 mg (241.3 mg 400 mg PO BID 06/24/20 06/28/21 magnesium) tablet prednisone 10 mg tablet 5 mg PO DAILY 06/24/20 06/28/21 pyridoxine (vitamin B6) 100 mg 100 mg PO DAILY 06/24/20 06/28/21 tablet docusate sodium 250 mg capsule 250 mg PO DAILY PRN 07/16/20 06/28/21 insulin aspart U-100 100 unit/mL 2 - 20 units subcut 0800,1200,1700 11/15/20 06/28/21 (3 mL) subcutaneous pen (Novolog Flexpen U-100 Insulin aspart) insulin glargine 100 unit/mL (3 25 unit (0.25 mL) subcut DAILY #0 11/23/20 06/28/21 mL) subcutaneous pen (Basaglar mL KwikPen U-100 Insulin) metoprolol succinate 25 mg 25 mg PO DAILY 01/09/21 06/28/21 tablet,extended release 24 hr Previous Rx's Medication Instructions Recorded rolling walker with seat #1 ea 01/12/20 insulin glargine 100 unit/mL (3 25 unit (0.25 mL) subcut DAILY #0 11/23/20 mL) subcutaneous pen (Basaglar mL KwikPen U-100 Insulin) Allergies Allergy/AdvReac Type Severity Reaction Status Date / Time quetiapine [From Seroquel] Allergy Intermediate Unverified 06/28/21 12:53 amoxicillin [From Augmentin] Allergy Unverified 06/28/21 12:53 clavulanic acid Allergy Unverified 06/28/21 12:53 [From Augmentin] Penicillins Allergy Unverified 06/28/21 12:53 Sulfa (Sulfonamide Allergy Unverified 06/28/21 12:53 Antibiotics) exenatide [From [place]] AdvReac Intermediate diarrhea Unverified 06/28/21 12:53 metformin AdvReac Intermediate diarrhea Unverified 06/28/21 12:53 amitriptyline AdvReac made my Unverified 06/28/21 12:53 face go numb amoxicillin trihydrate AdvReac acute Unverified 06/28/21 12:53 [From Augmentin] kidney failure NSAIDS (Non-Steroidal AdvReac stage III Unverified 06/28/21 12:53 Anti-Inflamma kidney disease potassium clavulanate AdvReac acute Unverified 06/28/21 12:53 [From Augmentin] kidney failure General SADE: 3 Review of Systems All systems reviewed & are unremarkable except as noted in HPI and below Constitutional Constitutional: Denies chills and Denies fever(s) Eyes Eyes: Denies loss of vision Cardiovascular Cardiovascular: Denies chest pain and Denies dyspnea Respiratory Respiratory: Denies cough and Denies dyspnea Gastrointestinal Gastrointestinal: Denies vomiting Integumentary/Breasts Skin/Breast: Denies rash Neurologic Neurologic: Denies loss of vision PFSH All Active Problems (Updated 02/05/22 @ 23:05 by Branden Sequeira MD) URI (upper respiratory infection) (Acute) ISA (acute kidney injury) (Acute) Pre-syncope (Acute) Headache (Acute) Abdominal pain (Acute) Urinary tract infection (Acute) Atypical chest pain (Acute) Hypomagnesemia (Acute) COVID-19 (Acute) Coronary artery disease (Chronic) Chest pain (Acute) CAD (coronary atherosclerotic disease) (Acute) 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 (Acute) Type 1 diabetes mellitus with diabetic polyneuropathy (Acute) Primary osteoarthritis of both first carpometacarpal joints (Acute 12/22/17) Hypertension (Chronic) Insomnia (Acute) GERD (gastroesophageal reflux disease) (Chronic) Type 2 diabetes mellitus (Chronic) Chronic kidney disease (Chronic) COPD (chronic obstructive pulmonary disease) (Chronic) Mixed anxiety depressive disorder (Acute) Medical History Acute exacerbation of chronic obstructive airways disease Acute sinusitis Allergic rhinitis Anemia Benign neoplasm of peripheral 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 No complications. Cholecystectomy Coronary Stent H/O lumpectomy Hx of tubal ligation Family History Brother Diabetes Hypertension Heart disease Stroke Obesity Chronic headaches Arthritis Brother Arthritis Chronic headaches Diabetes Heart disease Hypertension Obesity Stroke Father Heart disease Stroke Hypertension Chronic headaches Sister Diabetes Obesity Osteoporosis Daughter Migraine Obesity Brother Arthritis Diabetes Chronic headaches Hypertension Obesity Stroke Mother Asthma Arthritis Diabetes Obesity Stroke Glaucoma Social History Smoking/Tobacco Use Status: Former Tobacco Use Quit Date: 04/13/19 Pack-years: 45 Tobacco: How many years used: 45 Quit status: considering quitting Smoking risk assessment performed?: Yes Alcohol Intake: never Drug use: Never Substance use type: does not use Details: Quit smoking 6 months ago. Household members: friend(s) Housing: apartment Number of Children: 3 number of grandchildren: 14 current occupation: none What is your relationship status?: Panel score (0-1 are the most socially isolated patients): 0 What type of physical activity do you participate in: none Do you feel safe at home: Yes Do you feel safe in your relationship?: Yes Exam Const General: no acute distress Orientation: alert HENMT Head: normal to inspection Ears: external ears normal General nose exam: external nose normal Mouth: moist mucous membranes Eyes General: appearance normal, both eyes and all related structures Neck Neck: normal visual inspection Resp Effort & Inspection: normal respiratory effort and able to speak in complete sentences Cardio Rate: regular rate GI Palpation: tender Skin General skin exam: no rashes or lesions noted Neuro General: patient alert and patient oriented x3 Extrem General: normal to inspection Psych Mental Status: mental status grossly normal
--- NOTE | 2022-02-05 20:15 | DI.CT_ITS ---
Exam(s) CT HEAD WO EXAM: CT HEAD WO CLINICAL HISTORY: headache. TECHNIQUE: Imaging Protocol: Axial computed tomography images with coronal and sagittal reformatted images were created and reviewed COMPARISON: CT CT HEAD WO from 10/28/2018 FINDINGS: There are no skull fractures nor fluid in the visualized paranasal sinuses. There is no evidence of intracranial hemorrhage, mass effect, or shift of midline structures. There are no extra-axial fluid collections. The ventricles are not enlarged or shifted and there is no blo od within the ventricular system nor within the basal cisterns. IMPRESSION: No acute intracranial findings on this noninfused CT scan of the brain. RADIATION DOSE DELIVERED: 767.99mGy.cm Total DLP DATA REPOSITORY: All CT scans at this facility are submitted to the National Radiology Data Registry (NRDR) Dose Index Registry (DIR) with the [employer] (A[employer]). RADIATION OPTIMIZATION: All CT scans at this facility use at least one of these dose optimization te chniques: automated exposure control; mA and/or kV adjustment per patient size (includes targeted exa ms where dose is matched to clinical indication); or iterative reconstruction.
[2022-02-05 20:35] LABS: BE (Venous) 1 mmol/L (-2-3); HCO3 (Venous) 26 mmol/L (23-28); O2 Sat (Venous) 67 %; TCO2 (Venous) 23 mmol/L (24-29); pCO2 (Venous) 44 mmHg (41-51); pH (Venous) 7.38 (7.31-7.41); pO2 (Venous) 36 mmHg
[2022-02-05 20:36] LABS: Abs Immature Grans 0.14 10^3/uL (0.0-0.06); Absolute Basophil Count 0.05 10^3/uL (0.0-0.2); Absolute Eosinophil Count 0.16 10^3/uL (0.0-0.7); Absolute Lymphocyte Count 2.58 10^3/uL (1.2-3.4); Absolute Monocyte Count 0.71 10^3/uL (0.1-0.8); Absolute Neutrophil Count 8.32 10^3/uL (1.2-6.7); Basophils % 0.4; Eosinophils % 1.3; HCT 38.3 % (36.0-46.0); HGB 13.7 g/dL (11.2-15.7); Immature Grans % 1.2; Lymphocytes % 21.6; MCH 30.6 pg (27.0-33.0); MCHC 35.8 % (32.0-36.0); MCV 86 fL (80-95); MPV 10.9 fL (8.0-11.0); Monocytes % 5.9; Neutrophils % 69.6; Platelet Count 331 10^3/uL (130-400); RBC 4.48 10^6/uL (3.93-5.22); RDW 13.1 % (11.7-14.6); RDW-SD 39.8 fL; WBC 11.95 10^3/uL (4.4-10.8)
[2022-02-05 20:37] LABS: Source Nasal/Nares
[2022-02-05] MEDS: Normal Saline 1,000 ML 1000 ML IV ×2 (20:40→22:03)
[2022-02-05] MEDS: Acetaminophen 500 MG TAB 1000 MG PO (20:45)
--- NOTE | 2022-02-05 21:00 | DI.CT_ITS ---
Exam(s) CT ABDOMEN PELVIS WO EXAM: CT ABDOMEN PELVIS WO CLINICAL HISTORY: abdominal pain. TECHNIQUE: Imaging Protocol: Axial computed tomography images with coronal and sagittal reformatted images were created and reviewed CONTRAST MATERIAL: Intravenous: none Oral: None COMPARISON: CT CT renal colic wo from 02/15/2019 CR XR PORTABLE CHEST AP from 12/13/2020 FINDINGS: VISUALIZED LUNG BASES: Mild increased markings. No pleural effusions. ABDOMEN: There is no ascites. LIVER: There are no obvious focal hepatic lesions evident of this noninfused study. GALLBLADDER/BILIARY: The gallbladder surgically absent. CBD is not dilated. PANCREAS: No evidence of pancreatic mass nor dilatation of the pancreatic duct. SPLEEN: Spleen is not enlarged. No obvious intrasplenic lesions. ADRENALS: There are no significant adrenal masses. KIDNEYS:No cysts evident. No solid renal masses. No calculi nor hydronephrosis. . ABDOMINAL AORTA: Abdominal aorta is not enlarged. LYMPH NODES: There is no retroperitoneal nor paraaortic adenopathy. ABDOMINAL WALL: No evidence of significant anterior abdominal wall nor inguinal hernia. GI: There is no evidence of bowel obstruction, free air, nor abscess. PELVIS: LYMPH NODES: There is no intrapelvic nor inguinal adenopathy. GI: Appendix not visualized. May be surgically absent. No evidence of appendicitis.No evidence of s igmoid diverticulitis. URINARY BLADDER: No calculi nor obvious masses evident REPRODUCTIVE: Uterus and adnexal regions appear unremarkable. No free fluid in the pelvis. OSSEOUS: No significant osseous lesions. IMPRESSION: 1. The gallbladder surgically absent. The biliary tree is not dilated. 2. No significant acute findings on this noninfused study the abdomen pelvis RADIATION DOSE DELIVERED: 1,258.91mGy.cm Total DLP DATA REPOSITORY: All CT scans at this facility are submitted to the National Radiology Data Registry (NRDR) Dose Index Registry (DIR) with the [employer] (ACR). RADIATION OPTIMIZATION: All CT scans at this facility use at least one of these dose optimization te chniques: automated exposure control; mA and/or kV adjustment per patient size (includes targeted exa ms where dose is matched to clinical indication); or iterative reconstruction.
--- NOTE | 2022-02-05 21:00 | DI.RAD_ITS ---
Exam(s) XR CHEST 2V PA LATERAL EXAM: XR CHEST 2V PA LATERAL CLINICAL HISTORY: dyspnea. TECHNIQUE: 2D digital imaging was performed. COMPARISON: CR XR PORTABLE CHEST AP from 12/13/2020 FINDINGS: 2 views: Heart size is normal. The mediastinum is not widened. There has been improvement when compared to 12/13/2020. Right lung is clear. Mild increased marking s in the left parahilar region are noted. No pleural effusions. No evidence of pulmonary edema. No pneumothorax IMPRESSION: Mild increased left parahilar markings. Suggest follow-up imaging. DATA REPOSITORY: RADIATION DOSE DELIVERED:
[2022-02-05 21:01] LABS: ALT 25 U/L (14-59); AST 33 U/L (15-37); Albumin 3.1 g/dL (3.4-5.0); Alkaline Phosphatase 144 U/L (46-116); Anion Gap 11.6 mmol/L (3-11); BUN 61 mg/dL (7-18); Bilirubin, Total 0.4 mg/dL (0.2-1.0); CO2 25.4 mmol/L (21.0-32.0); CREATININE 2.9 mg/dL (0.55-1.02); Calcium 9.3 mg/dL (8.5-10.1); Chloride 97 mmol/L (98-107); Glucose 155 mg/dL (74-106); Magnesium 1.8 mg/dL (1.8-2.4); Potassium 4.2 mmol/L (3.5-5.1); Sodium 134 mmol/L (136-145); TSH (W/Ref FT4) 4.08 uIU/mL (0.36-3.74); Total Protein 7.5 g/dL (6.4-8.2); Troponin I < 50 ng/L (<or=60)
[2022-02-05 21:03] LABS: Lipase 56 U/L (73-393)
[2022-02-05 21:21] LABS: FREE T4 1.43 ng/dL (0.76-1.46)
[2022-02-05 21:35] LABS: COVID-19 PCR Negative (Negative)
--- NOTE | 2022-02-05 21:38 | DI.VRAD_ITS ---
PROCEDURE INFORMATION: Exam: CT Head Without Contrast Exam date and time: 02/05/2022 9:29 PM Age: 61 years old Clinical indication: Stroke-like symptoms; Additional info: HERNANDEZ TECHNIQUE: Imaging protocol: Computed tomography of the head without contrast. Radiation optimization: All CT scans at this facility use at least one of these dose optimization techniques: automated exposure control; mA and/or kV adjustment per patient size (includes targeted exams where dose is matched to clinical indication); or iterative reconstruction. Other technique: STROKE PROTOCOL was implemented. COMPARISON: CT HEAD WO 10/28/2018 11:46 PM FINDINGS: Brain: Normal. No hemorrhage. Unremarkable white matter. No mass effect. Cerebral ventricles: No ventriculomegaly. Paranasal sinuses: Visualized sinuses are unremarkable. No fluid levels. Mastoid air cells: Visualized mastoid air cells are well aerated. Bones/joints: Unremarkable. No acute fracture. Soft tissues: Unremarkable. IMPRESSION: No acute intracranial abnormality. ASSESSMENT: ASPECTS ([facility] Stroke Program Early CT Score) is 10. Dictated and Authenticated by: Alessandro Aquino MD. Ordering:DORIAN Otero MD
--- NOTE | 2022-02-05 21:44 | DI.VRAD_ITS ---
PROCEDURE INFORMATION: Exam: XR Chest Exam date and time: 02/05/2022 9:37 PM Age: 61 years old Clinical indication: Shortness of breath; Additional info: SOB TECHNIQUE: Imaging protocol: XR of the chest. Views: 2 views. COMPARISON: CR XR PORTABLE CHEST AP 12/13/2020 11:42 AM FINDINGS: Lungs: Unremarkable. No consolidation. Pleural spaces: Unremarkable. No pleural effusion. No pneumothorax. Heart/Mediastinum: Unremarkable. No cardiomegaly. Bones/joints: Unremarkable. IMPRESSION: No acute findings. Dictated and Authenticated by: Alessandro Aquino MD. Ordering:DORIAN Otero MD
--- NOTE | 2022-02-05 21:57 | DI.VRAD_ITS ---
PROCEDURE INFORMATION: Exam: CT Abdomen And Pelvis Without Contrast Exam date and time: 02/05/2022 9:30 PM Age: 61 years old Clinical indication: Abdominal pain; Generalized; Additional info: Abd pain TECHNIQUE: Imaging protocol: Computed tomography of the abdomen and pelvis without contrast. Radiation optimization: All CT scans at this facility use at least one of these dose optimization techniques: automated exposure control; mA and/or kV adjustment per patient size (includes targeted exams where dose is matched to clinical indication); or iterative reconstruction. COMPARISON: CT renal colic wo 07/01/2018 7:03 PM FINDINGS: Liver: Normal. No mass. Gallbladder and bile ducts: Cholecystectomy clips. Pancreas: Normal. No ductal dilation. Spleen: Normal. No splenomegaly. Adrenal glands: Normal. No mass. Kidneys and ureters: Normal. No hydronephrosis. Stomach and bowel: Unremarkable. No obstruction. No mucosal thickening. Appendix: No evidence of appendicitis. Intraperitoneal space: Unremarkable. No free air. No significant fluid collection. Vasculature: Unremarkable. No abdominal aortic aneurysm. Lymph nodes: Unremarkable. No enlarged lymph nodes. Urinary bladder: Unremarkable as visualized. Reproductive: Unremarkable as visualized. Bones/joints: Unremarkable. No acute fracture. Soft tissues: Unremarkable. IMPRESSION: No acute abdominal or pelvic abnormality. Dictated and Authenticated by: Alessandro Aquino MD. Ordering:DORIAN Otero MD
[2022-02-05 22:05] LABS: Bilirubin Moderate (Negative); Blood Trace-intact (Negative); Clarity Cloudy (Clear); Glucose 100 mg/dL (Negative); Ketones 15 mg/dL (Negative); Leukocyte Esterase Moderate (Negative); Nitrite Negative (Negative); Specific Gravity >= 1.030 (1.005-1.025); Urobilinogen 0.2 EU/dL (Up TO 0.2); pH 5.5 (5-8)
[2022-02-05 22:17] LABS: WBC >50 HPF (0-5)
[2022-02-05 22:18] LABS: Bacteria Many HPF (Negative); C & S Indicated? No/Sq. Contamination; Epithelial Cells Many HPF (Negative); Other Cells Mod Transitional (Negative)
[2022-02-05] MEDS: levoFLOXacin 750 MG/150 ML BAG 100 MG IVPB (22:45)
--- NOTE | 2022-02-05 23:26 | W.PM.HP.N ---
Date of service: 02/05/22 Time of Service: 23:26 Assessment and Plan Assessment and plan (1) Pre-syncope: Status: Acute Assessment and plan: In setting of dehydration, acute infection, h/o unclear type of tachyarrhthmia, likely episode of adrenal insufficiency. Hydrate, treat infection, stress dose steorids.Monitor BPs. In Am, check orthostatic VS. Monitor on tele. Obtain echo. (2) Urinary tract infection: Status: Acute Assessment and plan: Treat with empiric levofloxacin. Obtain medical records from the PCP's office to find out what type of infection was treated there 3 weeks ago. (3) ISA (acute kidney injury): Status: Acute Assessment and plan: IV hydfation. Recheck in am. (4) Abdominal pain: Status: Acute Assessment and plan: CT of the abdomen negative and physical exam is benign. Suspect flatus. The patient states that, when that happens, she usually uses simethicone - will trial. (5) Dehydration: Status: Acute Assessment and plan: IVF (6) Acute adrenal insufficiency: Status: Acute Assessment and plan: Stress dose steroids. (7) DVT prophylaxis: Status: Acute Assessment and plan: SC enoxaparin (8) Discharge planning issues: Status: Acute Assessment and plan: Full code Consult PT. History of Present Illness History of Present Illness Chief Complaint: Near syncope yesterday and today; weakness Narrative: Ms Jordan is a 61 year old female with PMHx of CAD s/p stents x 3, as well as h/o HTN, hyperlipidemia, CKD3, and a mention of dysrhythmia in PMHx, presumably sinus tachycardia (cardiology was never sure), who is steroid dependent and presented to [facility] ED today after a near-syncopal episode that occurred when the patient got up to go to the bathroom. She felt dizzy, had tunnelled vision, and felt that she was going to faint, so she called her roommate who caught her and helped her to the ground. The patient denies feeling chest pain or palpitations or shortness of breath at that time. She had a similar episode yesterday where she again had gotten up to go to the bathroom and felt like she was going to faint. Her roommate helped her get to the ground as well. The patient states she has felt overwhelmingly weak. She denies urinary sx now, but says 3 weeks ago she was treated for not a UTI but a different infection down there with cipro, though she later received a call from the clinic stating that cipro was not going to take care of that infection.The patient was not able to provide me with any more information. She denies dysuria, frequency/urgency now, but she endorses a lower abdominal pain and feeling bloated. When the patient arrived to [facility] ED today by EMS, she was hypotensive with BPs 85-92/50-53 and HR in 120s. After receiving a bolus of IVF, her SBP has improved to 107/66 and her HR is down to 104. The patient states she drinks plenty of water every day, but we discussed increasing her PO intake. The patient's UA was c/w an acute UTI. She was initiated on empiric levofloxacin. She is being given stress dose steroids. Hospitalist admission was requested. Review of Systems All systems reviewed & are unremarkable except as noted in HPI and below PFSH All Active Problems (Updated 02/05/22 @ 23:59 by Rosie Narvaez MD) Discharge planning issues (Acute) DVT prophylaxis (Acute) Acute adrenal insufficiency (Acute) Dehydration (Acute) URI (upper respiratory infection) (Acute) ISA (acute kidney injury) (Acute) Pre-syncope (Acute) Headache (Acute) Abdominal pain (Acute) Urinary tract infection (Acute) Atypical chest pain (Acute) Hypomagnesemia (Acute) COVID-19 (Acute) Coronary artery disease (Chronic) Chest pain (Acute) CAD (coronary atherosclerotic disease) (Acute) 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 (Acute) Type 1 diabetes mellitus with diabetic polyneuropathy (Acute) Primary osteoarthritis of both first carpometacarpal joints (Acute 12/22/17) Hypertension (Chronic) Insomnia (Acute) GERD (gastroesophageal reflux disease) (Chronic) Type 2 diabetes mellitus (Chronic) Chronic kidney disease (Chronic) COPD (chronic obstructive pulmonary disease) (Chronic) Mixed anxiety depressive disorder (Acute) Medical History Acute exacerbation of chronic obstructive airways disease Acute sinusitis Allergic rhinitis Anemia Benign neoplasm of peripheral 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 No complications. Cholecystectomy Coronary Stent H/O lumpectomy Hx of tubal ligation Family History Brother Diabetes Hypertension Heart disease Stroke Obesity Chronic headaches Arthritis Brother Arthritis Chronic headaches Diabetes Heart disease Hypertension Obesity Stroke Father Heart disease Stroke Hypertension Chronic headaches Sister Diabetes Obesity Osteoporosis Daughter Migraine Obesity Brother Arthritis Diabetes Chronic headaches Hypertension Obesity Stroke Mother Asthma Arthritis Diabetes Obesity Stroke Glaucoma Social History Smoking/Tobacco Use Status: Former Tobacco Use Quit Date: 04/13/19 Pack-years: 45 Tobacco: How many years used: 45 Quit status: considering quitting Smoking risk assessment performed?: Yes Alcohol Intake: never Drug use: Never Substance use type: does not use Details: Quit smoking 6 months ago. Household members: friend(s) Housing: apartment Number of Children: 3 number of grandchildren: 14 current occupation: none What is your relationship status?: Panel score (0-1 are the most socially isolated patients): 0 What type of physical activity do you participate in: none Do you feel safe at home: Yes Do you feel safe in your relationship?: Yes Meds Allergies and Home Medications Allergies Allergy/AdvReac Type Severity Reaction Status Date / Time quetiapine [From Seroquel] Allergy Intermediate Unverified 06/28/21 12:53 amoxicillin [From Augmentin] Allergy Unverified 06/28/21 12:53 clavulanic acid Allergy Unverified 06/28/21 12:53 [From Augmentin] Penicillins Allergy Unverified 06/28/21 12:53 Sulfa (Sulfonamide Allergy Unverified 06/28/21 12:53 Antibiotics) exenatide [From Byetta] AdvReac Intermediate diarrhea Unverified 06/28/21 12:53 metformin AdvReac Intermediate diarrhea Unverified 06/28/21 12:53 amitriptyline AdvReac made my Unverified 06/28/21 12:53 face go numb amoxicillin trihydrate AdvReac acute Unverified 06/28/21 12:53 [From Augmentin] kidney failure NSAIDS (Non-Steroidal AdvReac stage III Unverified 06/28/21 12:53 Anti-Inflamma kidney disease potassium clavulanate AdvReac acute Unverified 06/28/21 12:53 [From Augmentin] kidney failure Home Medications Medication Instructions Recorded Confirmed Type zolpidem 10 mg tablet 10 mg PO HS PRN 12/19/15 02/05/22 History nitroglycerin 0.4 mg sublingual 0.4 mg sublingual PRN PRN 06/01/17 02/05/22 History tablet (Nitrostat) naloxone 4 mg/actuation nasal 4 mg intranasal PRN PRN 09/10/19 02/05/22 History spray (Narcan) nystatin 100,000 unit/mL oral 5 ml PO QID PRN PRN 09/10/19 02/05/22 History suspension rolling walker with seat #1 ea 01/12/20 01/12/20 Rx aspirin 81 mg tablet,delayed 81 mg PO DAILY 06/24/20 02/05/22 History release atorvastatin 40 mg tablet 40 mg PO DAILY 06/24/20 02/05/22 History bupropion HCl 100 mg tablet,12 hr 100 mg PO DAILY 06/24/20 02/05/22 History sustained-release cetirizine 10 mg tablet 10 mg PO DAILY 06/24/20 02/05/22 History cyanocobalamin (vitamin B-12) 1,000 mcg PO DAILY 06/24/20 02/05/22 History 1,000 mcg tablet (Vitamin B-12) cyclobenzaprine 10 mg tablet 10 mg PO Q8H PRN PRN 06/24/20 02/05/22 History dexlansoprazole 60 mg 60 mg PO DAILY 06/24/20 02/05/22 History capsule,biphase delayed release (Dexilant) duloxetine 30 mg capsule,delayed 30 mg PO DAILY 06/24/20 02/05/22 History release duloxetine 60 mg capsule,delayed 60 mg PO DAILY 06/24/20 02/05/22 History release fluticasone propionate 110 1 puff inhalation BID PRN 06/24/20 02/05/22 History mcg/actuation HFA aerosol inhaler (Flovent HFA) fluticasone propionate 50 1 spray intranasal DAILY 06/24/20 02/05/22 History mcg/actuation nasal spray,suspension hydrocodone 5 mg-acetaminophen 325 1 tab PO Q8H PRN PRN 06/24/20 02/05/22 History mg tablet lisinopril 5 mg tablet 5 mg PO DAILY 06/24/20 02/05/22 History lorazepam 0.5 mg tablet 0.5 mg PO PRN PRN 06/24/20 02/05/22 History magnesium oxide 400 mg (241.3 mg 400 mg PO BID 06/24/20 02/05/22 History magnesium) tablet prednisone 10 mg tablet 5 mg PO DAILY 06/24/20 02/05/22 History pyridoxine (vitamin B6) 100 mg 100 mg PO DAILY 06/24/20 02/05/22 History tablet docusate sodium 250 mg capsule 250 mg PO DAILY PRN 07/16/20 02/05/22 History insulin aspart U-100 100 unit/mL 2 - 20 units subcut 0800,1200,1700 11/15/20 02/05/22 History (3 mL) subcutaneous pen (Novolog Flexpen U-100 Insulin aspart) insulin glargine 100 unit/mL (3 25 unit (0.25 mL) subcut DAILY #0 11/23/20 02/05/22 Rx mL) subcutaneous pen (Basaglar mL KwikPen U-100 Insulin) metoprolol succinate 25 mg 25 mg PO DAILY 01/09/21 02/05/22 History tablet,extended release 24 hr Exam Narrative Exam Narrative: General: Pleasant middle-aged female who looks pale, appears comfortable in bed, A&Ox3, on RA Neurological: A&Ox3, no focal deficits Psychiatric: Appropriate speech pattern/content Skin: Visible skin intact HEENT: Atraumatic, normocephalic, EOMI, MMM, clear oropharynx, no submandibular or cervical lymphadenopathy, no goiter or JVD Cardiovascular: RRR, no m/r/g Lungs: CTAB Gastrointestinal: soft, nontender, nondistended Genitourinary: deferred Extremities: no edema BLEs, 1+ pedal pulses B Results Imaging Additional studies: CT head: No acute intracranial abnormality. CXR: No acute findings CT abdomen/pelvis: No acute abdominal or pelvic abnormality. EKG: ST, HR 116, no acute ischemia Labs Result diagrams: 02/05/22 20:26 02/05/22 20:26 Labs: Laboratory Results - last 24 hr 02/05/22 02/05/22 02/05/22 20:26 20:26 20:26 WBC 11.95 H RBC 4.48 Hgb 13.7 Hct 38.3 MCV 86 MCH 30.6 MCHC 35.8 RDW 13.1 Plt Count 331 MPV 10.9 Immature Gran % 1.2 Neutrophils % 69.6 Lymphocytes % 21.6 Monocytes % 5.9 Eosinophils % 1.3 Basophils % 0.4 Nucleated RBC % 0.0 Absolute Neutrophils 8.32 H Absolute Lymphocytes 2.58 Absolute Monocytes 0.71 Absolute Eosinophils 0.16 Absolute Basophils 0.05 VBG pH 7.38 VBG pCO2 44 VBG pO2 36 VBG HCO3 26 VBG Total CO2 23 L VBG O2 Saturation 67 VBG Base Excess 1 Sodium 134 L Potassium 4.2 Chloride 97 L Carbon Dioxide 25.4 Anion Gap 11.6 H BUN 61 H Creatinine 2.9 H Estimated GFR/1.73 m2 16.50 Glucose 155 H Calcium 9.3 Magnesium 1.8 Total Bilirubin 0.4 AST 33 ALT 25 Alkaline Phosphatase 144 H Troponin I < 50 Total Protein 7.5 Albumin 3.1 L Lipase TSH 4.08 H Free T4 1.43 Urine Color Urine Clarity Urine pH Ur Specific G[place] Urine Protein Urine Ketones Urine Blood Urine Nitrite Urine Bilirubin Urine Urobilinogen Ur Leukocyte Esterase Urine RBC Urine WBC Ur Epithelial Cells Urine Crystals Urine Bacteria Urine Mucus Urine Other Ur Culture Indicated? Urine Glucose COVID-19 Source SARS-CoV-2 (PCR) 02/05/22 02/05/22 02/05/22 20:26 20:34 21:50 WBC RBC Hgb Hct MCV MCH MCHC RDW Plt Count MPV Immature Gran % Neutrophils % Lymphocytes % Monocytes % Eosinophils % Basophils % Nucleated RBC % Absolute Neutrophils Absolute Lymphocytes Absolute Monocytes Absolute Eosinophils Absolute Basophils VBG pH VBG pCO2 VBG pO2 VBG HCO3 VBG Total CO2 VBG O2 Saturation VBG Base Excess Sodium Potassium Chloride Carbon Dioxide Anion Gap BUN Creatinine Estimated GFR/1.73 m2 Glucose Calcium Magnesium Total Bilirubin AST ALT Alkaline Phosphatase Troponin I Total Protein Albumin Lipase 56 TSH Free T4 Urine Color Yellow Urine Clarity Cloudy Urine pH 5.5 Ur Specific G[place]n >= 1.030 H Urine Protein Trace H Urine Ketones 15 H Urine Blood Trace-intact H Urine Nitrite Negative Urine Bilirubin Moderate H Urine Urobilinogen 0.2 Ur Leukocyte Esterase Moderate H Urine RBC Urine WBC >50 H Ur Epithelial Cells Many Urine Crystals Not Applicable Urine Bacteria Many Urine Mucus Not Applicable Urine Other Mod Transitional Ur Culture Indicated? No/Sq. Contamination Urine Glucose 100 COVID-19 Source Nasal/Nares SARS-CoV-2 (PCR) Negative Last Vital Signs Temp 37 C 02/05/22 20:13 Pulse 103 H 02/05/22 23:01 Resp 18 02/05/22 21:10 BP 118/84 02/05/22 22:30 Pulse Ox 100 02/05/22 23:10
[2022-02-05 23:39] LABS: Lab Add On Test done
[2022-02-05] MEDS: Hydrocortisone SOD SUC. 100 MG VIAL IVP (23:44)
[2022-02-06] VITALS (15 sets, daily range): BP systolic 101–150; BP diastolic 62–83; PULSE 60–140; RESP 18–22; TEMP 36.2–37; O2SAT 94–99
[2022-02-06 00:06] LABS: Procalcitonin < 0.1 ng/mL
[2022-02-06 00:14] LABS: Troponin I < 50 ng/L (<or=60)
--- NOTE | 2022-02-06 00:19 | NUR.NOTE ---
Nursing Note: Patient's neighbor, Jj, phone number is [phone].
[2022-02-06] MEDS: Lactated Ringers 1,000 ML 150 ML IV ×3 (01:08→17:57)
[2022-02-06] MEDS: Simethicone 80 MG CHEW 160 MG PO ×5 (01:08→21:53)
[2022-02-06] MEDS: Heparin 5,000 UNITS/ML VIAL 5000 UNITS SC ×3 (06:28→21:53)
[2022-02-06] MEDS: Hydrocortisone SOD SUC. 100 MG VIAL 50 MG IVP ×3 (06:28→21:52)
[2022-02-06 06:58] LABS: Anion Gap 11.9 mmol/L (3-11); BUN 60 mg/dL (7-18); CO2 19.1 mmol/L (21.0-32.0); CREATININE 2.4 mg/dL (0.55-1.02); Chloride 100 mmol/L (98-107); Estimated GFR 20.52 (mL/min/1.73m2); Glucose 352 mg/dL (74-106); Magnesium 1.5 mg/dL (1.8-2.4); Sodium 131 mmol/L (136-145)
[2022-02-06 07:01] LABS: Potassium 5.3 mmol/L (3.5-5.1)
[2022-02-06 07:35] LABS: Abs Immature Grans 0.09 10^3/uL (0.0-0.06); Absolute Basophil Count 0.03 10^3/uL (0.0-0.2); Absolute Eosinophil Count 0.02 10^3/uL (0.0-0.7); Absolute Lymphocyte Count 0.84 10^3/uL (1.2-3.4); Absolute Neutrophil Count 8.77 10^3/uL (1.2-6.7); Basophils % 0.3; Eosinophils % 0.2; HCT 32.5 % (36.0-46.0); HGB 11.3 g/dL (11.2-15.7); Immature Grans % 0.9; Lymphocytes % 8.4; MCHC 34.8 % (32.0-36.0); MCV 89 fL (80-95); MPV 10.7 fL (8.0-11.0); Neutrophils % 88.2; Platelet Count 206 10^3/uL (130-400); RBC 3.65 10^6/uL (3.93-5.22); RDW-SD 42.2 fL; WBC 9.95 10^3/uL (4.4-10.8)
--- NOTE | 2022-02-06 09:25 | INITIAL_ITS ---
- If Service Date Differs Date of service: 02/06/22 Time of Service: 09:25 Care Management Initial Assess REASON FOR HOSPITALIZATION:: UTI, ISA, Dehydration PAST MEDICAL HISTORY/PAST SURGICAL HISTORY:: All Active Problems (Updated 02/05/22 @ 23:59 by Rosie Narvaez MD). Discharge planning issues (Acute). DVT prophylaxis (Acute). Acute adrenal insufficiency (Acute). Dehydration (Acute). URI (upper respiratory infection) (Acute). ISA (acute kidney injury) (Acute). Pre-syncope (Acute). Headache (Acute). Abdominal pain (Acute). Urinary tract infection (Acute). Atypical chest pain (Acute). Hypomagnesemia (Acute). COVID-19 (Acute). Coronary artery disease (Chronic). Chest pain (Acute). CAD (coronary atherosclerotic disease) (Acute). 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 (Acute). Type 1 diabetes mellitus with diabetic polyneuropathy (Acute). Primary osteoarthritis of both first carpometacarpal joints (Acute 12/22/17). Hypertension (Chronic). Insomnia (Acute). GERD (gastroesophageal reflux disease) (Chronic). Type 2 diabetes mellitus (Chronic). Chronic kidney disease (Chronic). COPD (chronic obstructive pulmonary disease) (Chronic). Mixed anxiety depressive disorder (Acute). Medical History . Acute exacerbation of chronic obstructive airways disease. Acute sinusitis. Allergic rhinitis. Anemia. Benign neoplasm of peripheral nerve. Benign neoplasm of peripheral nerves and autonomic nervous system, unspecified. Cataracts, bilateral. Chronic renal impairment associated with type 2 diabetes mellitus. CKD stage 3 due to type 2 diabetes mellitus. Colon polyp. Coronary artery disease. Depression. Diabetes. pt reports elevated HgbA1c. Diabetes mellitus with neurologic complication, with long-term current use of insulin. Diarrhea. Disorder of both eyes. Dupuytren's disease of palm. Dysrhythmia. Epigastric pain. Fibromyalgia. Hyperlipidemia. Hypertension. Hypomagnesemia. Insomnia. Low back pain. Mental disorder. 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 On prison drug therapy. Panic disorder. Pernicious anemia. Proliferative retinopathy due to DM. PTSD (post-traumatic stress disorder). Renal insufficiency. RLS (restless legs syndrome). Sleep disorder. Spasm. Tobacco user. Urinary tract infection. Wheezing. Surgical History . Appendectomy. section. x2. No complications. Cholecystectomy. Coronary Stent. H/O lumpectomy. Hx of tubal ligation PREVIOUS FUNCTIONAL STATUS/SOCIAL/FAMILY SUPPORTS:: Nimisha lives in [place] with her roommate Yesenia Uribe. Yesenia helps her with preparing meals and grocery shopping. Nimisha describes him as almost too helpful. Nimisha has not left her home since July, due to worsening sob with exertion and weakness. Nimisha has 2 adult daughters Denae and Marichuy. Denae lives locally and is supportive. Nimisha is not very close with Marichuy. CURRENT FUNCTIONAL STATUS:: Nimisha was lying in bed with the HOB elevated when CM met with her. She is pleasant and easy to engage in conversation. She feels her overall health has declined since she had Covid last year. She is sob with ambulation and hasn't left her house since July. Her goal is to get stronger, so she can play with her grandchildren again. ADVANCE DIRECTIVES:: On file, [facility] is Denae Jordan Has patient been provided with info about the portal/API?: Yes Did the patient sign up for the portal?: No CODE STATUS:: Full Code INSURANCE COVERAGE / FINANCIAL ISSUES:: Medicaid. Medicare CURRENT HOME/COMMUNITY SERVICES/EQUIPMENT:: Walker, glucometer, disability support. PRIMARY CARE PHYSICIAN:: Maylin Garcia POTENTIAL DISCHARGE NEEDS:: SNF for STR, F/U appointments. PATIENT/FAMILY EDUCATION NEEDS:: Review discharge instructions, discuss [employer]. ANTICIPATED BARRIERS TO DISCHARGE:: None identified at this time. TRANSPORTATION:: Dependent on disposition. PLAN:: Anticipate, Nimisha will discharge to SNF for STR prior to returning home. [facility] referrals pending: [facility]. Transportation will be dependent on her disposition.
[2022-02-06] MEDS: HYDROcodone 5/Acetaminophen 325 TAB PO ×2 (10:37→20:03)
[2022-02-06] MEDS: DULoxetine 30 MG CAP 60 MG PO (10:38)
[2022-02-06] MEDS: Dexlansoprazole 30 MG CAP 60 MG PO (10:38)
[2022-02-06] MEDS: DULoxetine 30 MG CAP PO (10:38)
[2022-02-06] MEDS: buPROPion-CR 100 MG TABCR PO (10:38)
--- NOTE | 2022-02-06 10:38 | W.PM.PROGNOT ---
Date of Service Date of service: 02/06/22 Time of Service: 10:39 Assessment and Plan Assessment and plan (1) Pre-syncope: Status: Acute Assessment and plan: In setting of dehydration, acute infection, h/o unclear type of tachyarrhthmia, likely episode of adrenal insufficiency. Hydrate, treat infection, stress dose steorids.Monitor BPs. Monitor on tele. Discussed with Dr Johnson (2) Urinary tract infection: Status: Acute Assessment and plan: Treat with empiric levofloxacin. Obtain medical records from the PCP's office to find out what type of infection was treated there 3 weeks ago. (3) ISA (acute kidney injury): Status: Acute Assessment and plan: IVF stopped - not orthostatic. (4) Abdominal pain: Status: Acute Assessment and plan: Denies abdominal pain (5) Dehydration: Status: Acute Assessment and plan: Resolved (6) Acute adrenal insufficiency: Status: Acute Assessment and plan: Stress dose steroids. (7) DVT prophylaxis: Status: Acute Assessment and plan: SC enoxaparin (8) Discharge planning issues: Status: Acute Assessment and plan: Full code Consult PT. Subjective Subjective Patient reports: tolerating a regular diet and shortness of breath; denies diarrhea, nausea, vomiting, afebrile or fever Interval history since last seen: Continues to report feeling very weak, gets quite tachycardic walking short distances, c/o chest pain, resolves in 4 minutes with rest, 20 min recovery for HR Exam Narrative Exam Narrative: General: Pleasant middle-aged female who looks pale, appears comfortable in bed, A&Ox3, on RA Neurological: A&Ox3, no focal deficits Psychiatric: Appropriate speech pattern/content Skin: Visible skin intact HEENT: Atraumatic, normocephalic, EOMI, MMM, clear oropharynx, no submandibular or cervical lymphadenopathy, no goiter or JVD Cardiovascular: RRR, no m/r/g Lungs: CTAB Gastrointestinal: soft, nontender, nondistended Genitourinary: deferred Extremities: no edema BLEs, Objective Last Vital Signs Temp 36.2 C L 02/06/22 07:45 Pulse 101 H 02/06/22 07:45 Resp 18 02/06/22 07:45 BP 126/81 02/06/22 07:45 Pulse Ox 94 02/06/22 07:45 Laboratory Results - last 24 hr 02/05/22 02/05/22 02/05/22 20:26 20:26 20:26 WBC 11.95 H RBC 4.48 Hgb 13.7 Hct 38.3 MCV 86 MCH 30.6 MCHC 35.8 RDW 13.1 Plt Count 331 MPV 10.9 Immature Gran % 1.2 Neutrophils % 69.6 Band Neutrophils % Lymphocytes % 21.6 Atypical Lymphs % Monocytes % 5.9 Eosinophils % 1.3 Basophils % 0.4 Metamyelocytes % Myelocytes % Promyelocytes % Other Cells % Nucleated RBC % 0.0 Absolute Neutrophils 8.32 H Absolute Lymphocytes 2.58 Absolute Monocytes 0.71 Absolute Eosinophils 0.16 Absolute Basophils 0.05 RBC Morphology Polychromasia Hypochromasia Poikilocytosis Basophilic Stippling Anisocytosis Microcytosis Macrocytosis Spherocytes Tear Drop Cells Ovalocytes Stomatocytes [place]-Fults Bodies [place] Cells/Echinocytes Acanthocytes (Spur) Schistocytes VBG pH 7.38 VBG pCO2 44 VBG pO2 36 VBG HCO3 26 VBG Total CO2 23 L VBG O2 Saturation 67 VBG Base Excess 1 Sodium 134 L Potassium 4.2 Chloride 97 L Carbon Dioxide 25.4 Anion Gap 11.6 H BUN 61 H Creatinine 2.9 H Estimated GFR/1.73 m2 16.50 Glucose 155 H Calcium 9.3 Magnesium 1.8 Total Bilirubin 0.4 AST 33 ALT 25 Alkaline Phosphatase 144 H Troponin I < 50 Total Protein 7.5 Albumin 3.1 L Lipase Procalcitonin TSH 4.08 H Free T4 1.43 Urine Color Urine Clarity Urine pH Ur Specific [place] Urine Protein Urine Ketones Urine Blood Urine Nitrite Urine Bilirubin Urine Urobilinogen Ur Leukocyte Esterase Urine RBC Urine WBC Ur Epithelial Cells Urine Crystals Urine Bacteria Urine Mucus Urine Other Ur Culture Indicated? Urine Glucose COVID-19 Source SARS-CoV-2 (PCR) Add-On Test Request 02/05/22 02/05/22 02/05/22 20:26 20:34 21:50 WBC RBC Hgb Hct MCV MCH MCHC RDW Plt Count MPV Immature Gran % Neutrophils % Band Neutrophils % Lymphocytes % Atypical Lymphs % Monocytes % Eosinophils % Basophils % Metamyelocytes % Myelocytes % Promyelocytes % Other Cells % Nucleated RBC % Absolute Neutrophils Absolute Lymphocytes Absolute Monocytes Absolute Eosinophils Absolute Basophils RBC Morphology Polychromasia Hypochromasia Poikilocytosis Basophilic Stippling Anisocytosis Microcytosis Macrocytosis Spherocytes Tear Drop Cells Ovalocytes Stomatocytes [place]-Fults Bodies [place] Cells/Echinocytes Acanthocytes (Spur) Schistocytes VBG pH VBG pCO2 VBG pO2 VBG HCO3 VBG Total CO2 VBG O2 Saturation VBG Base Excess Sodium Potassium Chloride Carbon Dioxide Anion Gap BUN Creatinine Estimated GFR/1.73 m2 Glucose Calcium Magnesium Total Bilirubin AST ALT Alkaline Phosphatase Troponin I Total Protein Albumin Lipase 56 Procalcitonin TSH Free T4 Urine Color Yellow Urine Clarity Cloudy Urine pH 5.5 Ur Specific [place] >= 1.030 H Urine Protein Trace H Urine Ketones 15 H Urine Blood Trace-intact H Urine Nitrite Negative Urine Bilirubin Moderate H Urine Urobilinogen 0.2 Ur Leukocyte Esterase Moderate H Urine RBC Urine WBC >50 H Ur Epithelial Cells Many Urine Crystals Not Applicable Urine Bacteria Many Urine Mucus Not Applicable Urine Other Mod Transitional Ur Culture Indicated? No/Sq. Contamination Urine Glucose 100 COVID-19 Source Nasal/Nares SARS-CoV-2 (PCR) Negative Add-On Test Request 02/05/22 02/05/22 02/05/22 22:43 22:43 23:54 WBC RBC Hgb Hct MCV MCH MCHC RDW Plt Count MPV Immature Gran % Neutrophils % Band Neutrophils % Lymphocytes % Atypical Lymphs % Monocytes % Eosinophils % Basophils % Metamyelocytes % Myelocytes % Promyelocytes % Other Cells % Nucleated RBC % Absolute Neutrophils Absolute Lymphocytes Absolute Monocytes Absolute Eosinophils Absolute Basophils RBC Morphology Polychromasia Hypochromasia Poikilocytosis Basophilic Stippling Anisocytosis Microcytosis Macrocytosis Spherocytes Tear Drop Cells Ovalocytes Stomatocytes [place]-Fults Bodies [place] Cells/Echinocytes Acanthocytes (Spur) Schistocytes VBG pH VBG pCO2 VBG pO2 VBG HCO3 VBG Total CO2 VBG O2 Saturation VBG Base Excess Sodium Potassium Chloride Carbon Dioxide Anion Gap BUN Creatinine Estimated GFR/1.73 m2 Glucose Calcium Magnesium Total Bilirubin AST ALT Alkaline Phosphatase Troponin I < 50 Total Protein Albumin Lipase Procalcitonin < 0.1 TSH Free T4 Urine Color Urine Clarity Urine pH Ur Specific [place] Urine Protein Urine Ketones Urine Blood Urine Nitrite Urine Bilirubin Urine Urobilinogen Ur Leukocyte Esterase Urine RBC Urine WBC Ur Epithelial Cells Urine Crystals Urine Bacteria Urine Mucus Urine Other Ur Culture Indicated? Urine Glucose COVID-19 Source SARS-CoV-2 (PCR) Add-On Test Request done 02/06/22 02/06/22 02/06/22 05:44 05:44 07:28 WBC Cancelled 9.95 RBC Cancelled 3.65 L Hgb Cancelled 11.3 D Hct Cancelled 32.5 L MCV Cancelled 89 MCH Cancelled 31.0 MCHC Cancelled 34.8 D RDW Cancelled 13.0 Plt Count Cancelled 206 MPV Cancelled 10.7 Immature Gran % Cancelled 0.9 Neutrophils % Cancelled 88.2 Band Neutrophils % Cancelled Lymphocytes % Cancelled 8.4 Atypical Lymphs % Cancelled Monocytes % Cancelled 2.0 Eosinophils % Cancelled 0.2 Basophils % Cancelled 0.3 Metamyelocytes % Cancelled Myelocytes % Cancelled Promyelocytes % Cancelled Other Cells % Cancelled Nucleated RBC % Cancelled 0.0 Absolute Neutrophils Cancelled 8.77 H Absolute Lymphocytes Cancelled 0.84 L Absolute Monocytes Cancelled 0.20 Absolute Eosinophils Cancelled 0.02 Absolute Basophils Cancelled 0.03 RBC Morphology Cancelled Polychromasia Cancelled Hypochromasia Cancelled Poikilocytosis Cancelled Basophilic Stippling Cancelled Anisocytosis Cancelled Microcytosis Cancelled Macrocytosis Cancelled Spherocytes Cancelled Tear Drop Cells Cancelled Ovalocytes Cancelled Stomatocytes Cancelled [place]-Fults Bodies Cancelled [place] Cells/Echinocytes Cancelled Acanthocytes (Spur) Cancelled Schistocytes Cancelled VBG pH VBG pCO2 VBG pO2 VBG HCO3 VBG Total CO2 VBG O2 Saturation VBG Base Excess Sodium 131 L Potassium 5.3 H D Chloride 100 Carbon Dioxide 19.1 L Anion Gap 11.9 H BUN 60 H Creatinine 2.4 H Estimated GFR/1.73 m2 20.52 Glucose 352 H Calcium 8.0 L Magnesium 1.5 L Total Bilirubin AST ALT Alkaline Phosphatase Troponin I Total Protein Albumin Lipase Procalcitonin TSH Free T4 Urine Color Urine Clarity Urine pH Ur Specific [place] Urine Protein Urine Ketones Urine Blood Urine Nitrite Urine Bilirubin Urine Urobilinogen Ur Leukocyte Esterase Urine RBC Urine WBC Ur Epithelial Cells Urine Crystals Urine Bacteria Urine Mucus Urine Other Ur Culture Indicated? Urine Glucose COVID-19 Source SARS-CoV-2 (PCR) Add-On Test Request Reviewed Pertinent PMH: Yes
[2022-02-06] MEDS: Cyanocobalamin 500 MCG TAB 1000 MCG PO (10:39)
[2022-02-06] MEDS: Cetirizine 10 MG TAB PO (10:39)
[2022-02-06] MEDS: Aspirin E.C. 81 MG TABEC PO (10:39)
[2022-02-06] MEDS: predniSONE 10 MG TAB 5 MG PO (10:39)
[2022-02-06] MEDS: Fluticasone NASAL SPRAY 16 GM BTL NS (10:40)
[2022-02-06] MEDS: Atorvastatin 40 MG TAB PO (10:40)
[2022-02-06] MEDS: Magnesium Oxide 400 MG TAB PO ×2 (10:40→20:03)
[2022-02-06] MEDS: Insulin Aspart 300 UNITS/3 ML PEN SC ×4 (10:41→21:54)
[2022-02-06] MEDS: Insulin Glargine 300 UNITS/3 ML PEN 25 UNITS SC (10:41)
[2022-02-06] MEDS: Normal Saline Flush 10 ML SYR IVP ×3 (11:18→21:55)
--- NOTE | 2022-02-06 12:08 | IN_ITS ---
PT Notes Visit Reasons: UTI, ISA, dehydration Physical Therapy Inpatient Initial Evaluation Date: 02/06/22 Referring Doctor: Rosie Narvaez MD PT Orders: PT CONSULT: Limited Ability Precautions: Fall. Standard. Patient Profile/Admitting Diagnosis: Nimisha is a 61 yo female that presented to the ER on 02/05/22 for light headedness. She was found to have ISA, UTI, and dehydration. Patient reports weak feeling and has been at home 6 months due to COVID fears.Has not seen her family and this is upsetting. Motivated to get better and open to go to assisted. PMHX: See EMR Social History/Home Situation: Lives with roommate in apartment, has elevator. Reports no use of assistive device at home, but uses 4WW if going to doctor appointment. Equipment Owned/DME: 4WW Subjective: Cleared by nursing to see patient and patient is agreeable to PT. Patient is lying in bed at time of consult and connected to telemetry and IV. Objective: General Observation: Patient becomes tearful talking about not getting to know 2 yo grandson due to COVID fears and not seeing family. Motivated to get better. Mental Status: A&O x3 Pain: Pain in back, shoulders ROM: Right Upper Extremity: Shoulder Flexion WFL. Shoulder abduction WFL. Elbow flexion WFL. Wrist flexion WFL. Opening and closing of hand WFL. Left Upper Extremity: Shoulder Flexion WFL. Shoulder abduction WFL. Elbow flexion WFL. Wrist flexion WFL. Opening and closing of hand WFL. Right Lower Extremity: Hip flexion WFL. Hip abduction WFL. Knee flexion WFL. Ankle dorsiflexion WFL. Ankle plantarflexion WFL. Left Lower Extremity: Hip flexion WFL. Hip abduction WFL. Knee flexion WFL. Ankle dorsiflexion WFL. Ankle plantarflexion WFL. Strength: Right Upper Extremity: Shoulder flexors 4/5. Shoulder abductors 4+/5. Elbow flexors 5-/5. Elbow extensors 5/5. Blacksmith Supervisor strong. Left Upper Extremity: Shoulder flexors 4/5. Shoulder abductors 4+/5. Elbow flexors 5-/5. Elbow extensors 5/5. Blacksmith Supervisor strong. Right Lower Extremity: Hip flexors 4/5. Knee flexors 5-/5. Knee extensors 4+/5. Ankle dorsiflexors 4+/5. Ankle plantarflexors 4+/5. Left Lower Extremity: Hip flexors 4/5. Knee flexors 5-/5. Knee extensors 4+/5. Ankle dorsiflexors 4+/5. Ankle plantarflexors 4+/5. Sensation: Intact as to pain and pressure on bilateral lower extremities. Bed Mobility/Transfers: Supine to sit: Supervision with HOB elevated Sit to supine: Min A with legs Sit to stand: Min A Stand to sit: Supervision Gait: Ambulated 2 steps forward with FWW, CGA - shaking through arms and legs so stepped back to bed Stairs: Not assessed Balance: Static Sitting: Normal Dynamic Sitting: Good Static Standing: Fair Dynamic Standing: Poor Special Tests: Mobility Limitations Standardized Measure [facility] 6 clicks Basic Mobility Inpatient Short Form: Raw Score: 11 CMS Score: 72.57% Informed Consent/Education: Patient instructed in purpose of PT consult and plan of care. Assessment: Patient presents with clinical signs and symptoms consistent with current/admitting diagnoses that have resulted to mobility limitations, gait instability, generalized weakness, and impairment of motor control as demonstrated by the following impairment level findings: 1. Decreased strength to upper and lower extremity major muscle groups 2. Impaired sitting/standing balance 3. Impaired activity tolerances Impairments are contributing to the following functional limitations: 1. Increased dependence with bed mobility skills 2. Increased dependence with transfers 3. Inability to safely ambulate without assistive device and physical assistance 4. Increase completion time for mobility ADL performance 5. Increased fall risk 6. Inability to negotiate steps alone safely Patient is assessed as a High complexity based on the following: History: 61 year old female with impairment level findings, functional limitations, and past medical history as indicated above Examination: Demonstrable impairment in strength, balance, and mobility level with underlying impairments and functional limitations as documented above Presentation: Evolving Decision Making: High complexity Goals: Goals x1 week 1. Supine-Sit: independent 2. Sit-Supine: independent 3. Sit-Stand: independent 4. Stand-Sit: independent 5. Bed-Chair: independent 6. Chair-Bed: independent 7. Independent gait on level surface with use of least restrictive device for at least 100 feet without report of pain nor dyspnea 8. Independent with home exercise program 9. Good static and dynamic standing balance/tolerance Plan of Care/Treatment Plan: 1-2x/day, 7 days/week x 1 week. Plan of care has been reviewed with the RUBBER TUBING BACKER providing the service under Physical Therapy direction. Initiate Physical Therapy intervention for strengthening, bed mobility, transfers, gait, stairs, balance training, and use of assistive device. Discharge Plan DISCHARGE RECOMMENDATIONS: SNF for continued rehabilitation TREATMENT CODE/TIME: 11:40-12:05 (25 minutes), [id number] Thank you for the opportunity to participate in the care of this patient. Roseline Solis, PT, DPT, OCS [facility] [place], [place]
--- NOTE | 2022-02-06 16:52 | PTTR_ITS ---
Date of service: 02/06/22 Time of Service: 15:10 PT Notes Visit Reasons: UTI, ISA, dehydration Inpatient Physical Therapy Treatment Note [facility] Date: 02/06/2022 PRECAUTIONS: Fall, Activity as tolerated SUBJECTIVE: Nimisha is pleasant and agreeable to participating in PT. She states that she is feeling weak and feels that she would benefit from -level rehab stay upon discharge. She becomes teary, stating that she is missing her dog. OBJECTIVE: PAIN: No c/o pain BED MOBILITY/TRANSFERS Supine-sit: I Sit-stand: SBA Stand-sit: SBA GAIT Assistive Device: 4WW Weight bearing: Full Assist: SBA Distance: 4 steps Deviation: Pt c/o shakiness and increased fatigue ASSESSMENT: Patient demonstrates limited activity tolerance. She c/o shakiness and increased fatigue with limited gait training. Patient would benefit from fu rther participation in global strengthening efforts for improved mobility and activity tolerance. PLAN: Continue with global strengthening and general conditioning for improved mobility and activity tolerance. TREATMENT CODE/TIME: 12 minutes; 18266 (15:10)
--- NOTE | 2022-02-06 17:47 | CHAPLAIN ---
Nimisha was having dinner when I visited. She told me that she is feeling motivated to move more and intends to walk to the bathroom tonight instead of using the commode. She is looking forward to to getting a couple of weeks at PT at [facility]& to get stronger before going home. Nimisha was very pleasant and easily engaged in a conversation.
--- NOTE | 2022-02-06 18:45 | RT.EKG_ITS ---
APPROVED REPORT Exam: Resting ECG Reason for Exam: tachycardia and chest pressure Patient Location: I HR:119 bpm ECG Measurements Heart Rate 119 AXIS PA 161 P 37 QRSd 77 QRS -15 QT 316 T 128 QTc 445 Conclusion Sinus tachycardia...rate> 99 Borderline left axis deviation...QRS axis (-15,-29) Low voltage, extremity and precordial leads...extremity<0.5mV, precordial<1.0mV Abnormal T, consider ischemia, lateral leads...T <-0.20mV, I aVL V5 V6
--- NOTE | 2022-02-06 19:13 | NUR.NOTE ---
Nursing Note: At 1840 following ambulation to BR with RN standby and walker. pt returned to bed with BLOCKER AUTOMATIC present, c/o chest pain, right shoulder pain, and headache. CCRN aware. VSS. State EKG ordered. At 1900, pt reported pain resolved. PM RN in room at this time.
[2022-02-06] MEDS: Cyclobenzaprine 10 MG TAB PO (21:53)
[2022-02-06] MEDS: LORazepam 0.5 MG TAB PO (21:53)
[2022-02-07] VITALS (11 sets, daily range): BP systolic 94–158; BP diastolic 51–95; PULSE 86–120; RESP 16–20; TEMP 36–36.9; O2SAT 95–100
--- NOTE | 2022-02-07 | DI.US_ITS ---
Exam(s) US RENAL EXAM: US RENAL CLINICAL HISTORY: ISA; Chronic increased BUN Creat; TECHNIQUE: Ultrasound of both kidneys performed using standard protocol. COMPARISON: FINDINGS: RIGHT KIDNEY: Measures 10.2 cm in length. No cysts evident. Normal cortical thickness and corticomedullary differen tiation .No solid masses No intrarenal calculi nor hydronephrosis. LEFT KIDNEY: Measures 11.1 cm in length. No cysts evident. Normal cortical thickness and corticomedullary differe ntiaion. No solids masses. No intrarenal calculi nor hydonephrosis. URINARY BLADDER: Prevoid volume is 174 cc Postvoid volume is 0 cc No evidence of bladder mass nor diverticuli. Ureterovesical jets: Not seen IMPRESSION: 1. No significant ultrasound findings in the kidneys. 2. No obvious abnormality in the urinary bladder and the bladder empties completely. Ureterovesical jets were not identified on this study. DATA REPOSITORY:
[2022-02-07] MEDS: Lactated Ringers 1,000 ML 150 ML IV (00:57)
[2022-02-07] MEDS: Heparin 5,000 UNITS/ML VIAL 5000 UNITS SC ×2 (06:36→21:19)
[2022-02-07] MEDS: Hydrocortisone SOD SUC. 100 MG VIAL 50 MG IVP (06:36)
[2022-02-07] MEDS: Normal Saline Flush 10 ML SYR IVP ×3 (06:37→19:54)
[2022-02-07] MEDS: Magnesium Oxide 400 MG TAB PO ×2 (08:36→19:50)
[2022-02-07] MEDS: Dexlansoprazole 30 MG CAP 60 MG PO (08:36)
--- NOTE | 2022-02-07 08:36 | CMPROGNOTE_ITS ---
- If Service Date Differs Date of service: 02/07/22 Time of Service: 08:36 Care Management Progress Note S/O: Nimisha was sitting up in her recliner when CM met with her. She is alert, oriented and easy to engage in conversation. She is feeling better and may want to discharge home with outpatient rehab though [facility] and home O[facility] (if qualifies) instead of going to [facility] for SNF. CM will talk with Nimisha about this again in the morning. If Nimisha decides to discharge home, she firmly refuses [facility] services, due to previous encounters with them. CM placed a referral to [facility] for assistance with filling out forms for Medicaid and food benefits. A: 61 year old female admitted to [facility] on 02/05/22 for UTI, ISA, Dehydration P: Anticipate, Nimisha will discharge to SNF for STR prior to returning home vs home with outpt PT (through [facility]) and [place] [facility] (if qualifies). SNF referral's pending: [facility], [facility] and [facility]. Nimisha has been accepted to [facility] Friday.
[2022-02-07] MEDS: Cyanocobalamin 500 MCG TAB 1000 MCG PO (08:37)
[2022-02-07] MEDS: DULoxetine 30 MG CAP PO (08:37)
[2022-02-07] MEDS: Cetirizine 10 MG TAB PO (08:38)
[2022-02-07] MEDS: buPROPion-CR 100 MG TABCR PO (08:38)
[2022-02-07] MEDS: Simethicone 80 MG CHEW 160 MG PO ×4 (08:38→19:52)
[2022-02-07] MEDS: Atorvastatin 40 MG TAB PO (08:38)
[2022-02-07] MEDS: Aspirin E.C. 81 MG TABEC PO (08:39)
[2022-02-07] MEDS: DULoxetine 30 MG CAP 60 MG PO (08:39)
[2022-02-07] MEDS: predniSONE 5 MG TAB PO (08:39)
[2022-02-07] MEDS: Insulin Aspart 300 UNITS/3 ML PEN SC ×4 (08:40→21:17)
[2022-02-07] MEDS: Fluticasone NASAL SPRAY 16 GM BTL NS (08:40)
[2022-02-07] MEDS: Insulin Glargine 300 UNITS/3 ML PEN 25 UNITS SC (08:41)
[2022-02-07 10:00] LABS: Anion Gap 11.3 mmol/L (3-11); BUN 48 mg/dL (7-18); CO2 22.7 mmol/L (21.0-32.0); CREATININE 2.5 mg/dL (0.55-1.02); Calcium 9.2 mg/dL (8.5-10.1); Chloride 103 mmol/L (98-107); Estimated GFR 19.58 (mL/min/1.73m2); Glucose 276 mg/dL (74-106); Magnesium 1.4 mg/dL (1.8-2.4); Potassium 4.2 mmol/L (3.5-5.1); Sodium 137 mmol/L (136-145)
--- NOTE | 2022-02-07 10:15 | W.PM.PROGNOT ---
Date of Service Date of service: 02/07/22 Time of Service: 10:15 Assessment and Plan Assessment and plan (1) Pre-syncope: Status: Acute Assessment and plan: In setting of dehydration, acute infection, h/o unclear type of tachyarrhthmia, likely episode of adrenal insufficiency. Monitor on tele. Continues to be tachycardic at rest. One episode of hypotension. Discussed with Dr Johnson (2) Urinary tract infection: Status: Acute Assessment and plan: Treat with empiric levofloxacin. Obtain medical records from the PCP's office to find out what type of infection was treated there 3 weeks ago. (3) ISA (acute kidney injury): Status: Acute Assessment and plan: IVF stopped - not orthostatic. BUN and creatinine continues to be elevated - after discussion with Dr Johnson, renal ultrasound done - negative (4) Abdominal pain: Status: Acute Assessment and plan: Denies abdominal pain (5) Dehydration: Status: Acute Assessment and plan: Resolved (6) Acute adrenal insufficiency: Status: Acute Assessment and plan: Anticipation of discharge to rehab; steroids changed to po - prednisone 20 mg x 2d, 10 mg x 2 d then 5 mg (7) DVT prophylaxis: Status: Acute Assessment and plan: SC enoxaparin (8) Discharge planning issues: Status: Acute Assessment and plan: Full code Consult PT. (9) Hypomagnesemia: Status: Acute Assessment and plan: 1.4 - repleated; will check 02/08/22 (10) Hyperglycemia: Status: Acute Assessment and plan: Glucose continues to be high - we did have an incorrect dose of insulin; it has been corrected, she is also receiving high dose steroids Subjective Subjective Patient reports: voiding w/o difficulty, shortness of breath and afebrile; denies diarrhea, nausea or vomiting Interval history since last seen: Continues to be weak and have difficulty breathing - lungs remain clear; Exam Narrative Exam Narrative: General: Pleasant middle-aged female, looks older that stated age, pale, on RA Neurological: A&Ox3, no focal deficits Psychiatric: Appropriate speech pattern/content Skin: Visible skin intact HEENT: Atraumatic, normocephalic, EOMI, MMM, clear oropharynx, no submandibular or cervical lymphadenopathy, no goiter or JVD Cardiovascular: RRR, no m/r/g Lungs: CTAB Gastrointestinal: soft, nontender, nondistended Genitourinary: deferred Extremities: no edema BLEs, Objective Last Vital Signs Temp 36 C L 02/07/22 08:34 Pulse 86 02/07/22 08:34 Resp 18 02/07/22 08:34 BP 130/78 02/07/22 08:34 Pulse Ox 96 02/07/22 08:34 Laboratory Results - last 24 hr 02/07/22 09:30 Sodium 137 Potassium 4.2 D Chloride 103 Carbon Dioxide 22.7 Anion Gap 11.3 H BUN 48 H Creatinine 2.5 H Estimated GFR/1.73 m2 19.58 Glucose 276 H Calcium 9.2 Magnesium 1.4 L
--- NOTE | 2022-02-07 10:15 | PT.INTREAT ---
Date of service: 02/07/22 Time of Service: 09:30 PT Notes Visit Reasons: UTI, ISA, dehydration Inpatient Physical Therapy Treatment Note [facility] Date: 02/07/2022 PRECAUTIONS: Fall, Activity as tolerated SUBJECTIVE: Nimisha is pleasant and agreeable to participating in PT. She reports that she is feeling much better today. She feels that she has more energy than she has had in a long time. She states that she got herself washed up and plans to get herself dressed, which is a struggle for her at home. OBJECTIVE: PAIN: Patient c/o squeezing chest pain with gait training. Nursing aware. See vital sign details below. BED MOBILITY/TRANSFERS Sit-stand: I Stand-sit: I GAIT Assistive Device: 4WW Weight bearing: Full Assist: SBA Distance: 200' Deviation: Pt c/o shakiness and chest pain after ~150' Patient demonstrates ability to dress one's self independently including pants and shirt, although does require extra time to complete this ADL. VITALS: Immediately following gait training: BP: 132/83, HR: 141, SaO2: 95% ASSESSMENT: Patient continues to demonstrate limited activity tolerance, c/o chest pain and shakiness after walking ~150'. She demonstrates improved strength today, as well as independence with transfers at this time. Patient would benefit from further participation in global strengthening efforts for improved mobility and activity tolerance. PLAN: Continue with global strengthening and general conditioning for improved mobility and activity tolerance. TREATMENT CODE/TIME: Session 1: 35 minutes; 06007 x2 (09:30) Session 2: Hold per nursing due to elevated resting HR
[2022-02-07] MEDS: MAGNESIUM SULFATE 2 GM/50 ML BAG IVPB (13:04)
[2022-02-07] MEDS: LORazepam 0.5 MG TAB PO (18:11)
[2022-02-07] MEDS: buPROPion-CR 150 MG TABCR PO (19:52)
[2022-02-07] MEDS: levoFLOXacin 750 MG/150 ML BAG 100 MG IVPB (19:54)
[2022-02-07] MEDS: HYDROcodone 5/Acetaminophen 325 TAB PO (21:17)
[2022-02-07] MEDS: Cyclobenzaprine 10 MG TAB PO (22:49)
[2022-02-08 05:53] VITALS: BP 139/86; PULSE 103; RESP 18; TEMP 36.6; O2SAT 94
[2022-02-08 06:43] LABS: Abs Immature Grans 0.08 10^3/uL (0.0-0.06); Absolute Basophil Count 0.07 10^3/uL (0.0-0.2); Absolute Eosinophil Count 0.23 10^3/uL (0.0-0.7); Absolute Lymphocyte Count 2.98 10^3/uL (1.2-3.4); Absolute Monocyte Count 0.52 10^3/uL (0.1-0.8); Basophils % 0.8; Eosinophils % 2.8; HCT 31.3 % (36.0-46.0); HGB 10.8 g/dL (11.2-15.7); MCH 30.7 pg (27.0-33.0); MCHC 34.5 % (32.0-36.0); MCV 89 fL (80-95); MPV 10.5 fL (8.0-11.0); Monocytes % 6.3; Neutrophils % 53.1; Platelet Count 238 10^3/uL (130-400); RBC 3.52 10^6/uL (3.93-5.22); RDW 13.8 % (11.7-14.6); RDW-SD 44.6 fL; WBC 8.28 10^3/uL (4.4-10.8)
[2022-02-08 07:00] VITALS: PULSE 99
[2022-02-08 07:09] LABS: Anion Gap 11.1 mmol/L (3-11); BUN 42 mg/dL (7-18); CO2 23.9 mmol/L (21.0-32.0); CREATININE 2.2 mg/dL (0.55-1.02); Calcium 8.7 mg/dL (8.5-10.1); Chloride 107 mmol/L (98-107); Estimated GFR 22.69 (mL/min/1.73m2); Glucose 177 mg/dL (74-106); Potassium 3.8 mmol/L (3.5-5.1); Sodium 142 mmol/L (136-145)
[2022-02-08 07:54] VITALS: BP 134/78; PULSE 95; RESP 14; TEMP 35.8; O2SAT 97
--- NOTE | 2022-02-08 09:11 | CMPROGNOTE_ITS ---
- If Service Date Differs Date of service: 02/08/22 Time of Service: 09:11 Care Management Progress Note S/O: A: 61 year old female admitted to [facility] on 02/05/22 for UTI, ISA, Dehydration P: Anticipate, Nimisha will discharge to SNF for STR prior to returning home vs home with outpt PT (through [facility]) and [place] [facility] (if qualifies). SNF referral's pending: [facility], [facility] and [facility]. Nimisha has been accepted to [facility] Friday.
[2022-02-08] MEDS: buPROPion-CR 150 MG TABCR PO (09:12)
[2022-02-08] MEDS: Cyanocobalamin 500 MCG TAB 1000 MCG PO (09:12)
[2022-02-08] MEDS: Cetirizine 10 MG TAB PO (09:12)
[2022-02-08] MEDS: Aspirin E.C. 81 MG TABEC PO (09:12)
[2022-02-08] MEDS: Magnesium Oxide 400 MG TAB PO (09:12)
[2022-02-08] MEDS: predniSONE 20 MG TAB PO (09:12)
[2022-02-08] MEDS: DULoxetine 30 MG CAP PO (09:13)
[2022-02-08] MEDS: Dexlansoprazole 30 MG CAP 60 MG PO (09:13)
[2022-02-08] MEDS: DULoxetine 30 MG CAP 60 MG PO (09:13)
[2022-02-08] MEDS: Atorvastatin 40 MG TAB PO (09:13)
[2022-02-08] MEDS: Insulin Glargine 300 UNITS/3 ML PEN 25 UNITS SC (09:14)
[2022-02-08] MEDS: Insulin Aspart 300 UNITS/3 ML PEN SC ×2 (09:15→12:42)
[2022-02-08] MEDS: Simethicone 80 MG CHEW 160 MG PO ×2 (09:20→13:06)
[2022-02-08] MEDS: HYDROcodone 5/Acetaminophen 325 TAB PO (10:13)
[2022-02-08 10:37] VITALS: PULSE 99
--- NOTE | 2022-02-08 10:50 | W.PM.DS.N ---
Date of service: 02/08/22 Time of Service: 10:50 DS: Diagnosis Discharge Diagnosis (1) Pre-syncope: Status: Resolved (2) Urinary tract infection: Status: Acute Asessment and Plan: on levaquin empiricially , (3) ISA (acute kidney injury): Status: Resolved Asessment and Plan: at baseline (4) Abdominal pain: Status: Resolved (5) Dehydration: Status: Resolved (6) Acute adrenal insufficiency: Status: Acute Asessment and Plan: stress dose steroids (7) Hypomagnesemia: Status: Acute Asessment and Plan: repleted (8) Hyperglycemia: Status: Acute Asessment and Plan: d/t steroids, continue blood sugar management Discharge Plan Disposition Patient Disposition: HOME Condition: Stable Discharge Details Reason For Visit: UTI, ISA, dehydration Admit Date/Time: 02/05/22 22:43 Admit Provider: Rosie Narvaez Attending Provider: Rosie Narvaez Primary Care Provider: Maylin Garcia [facility] Course Hospital Course: This is a 61 year old female with medical history of diabetes mellitus type 1 (diagnosed age 29), CAD s/p stents x3, hypertension, CKD stage 3, COPD, post covid 19, steroid dependance who presented to the ED after a near-syncopal episode that occurred when the patient got up to go to the bathroom. She felt dizzy, had tunnelled vision, and felt that she was going to faint, so she called her roommate who caught her and helped her to the ground.?Her work up in the ED shows hypotension with SBP in the 80's with HR in the 120's. She was given IV fluids which improved her vitals. She was also found to have a UTI and started on levaquin. She was given stress dose steroids and admission requested of hospitalist services for further management. While on med/surg her symptoms slowly improved. She was re-ambulated with PT and was making progress. Recommendations were made for skilled level rehabilitation but unfortunately she declined. PT recommendations are for outpatient therapy. Her urine is growing e coli with sensitivities pending. She will continue on levaquin every 48 hours based on renal function. She was weaned off oxygen and was needing it for ambulation only until today, where she was able to maintain sats in the mid 90's on room air with activity and ambulation. she is eating and drinking well. She is medically stable and will be discharged to home with no services as she declines home health referral will be placed for outpatient physical therapy. discharge discussed with Dr Johnson. Home Meds and New Rx's Prescriptions: New prednisone 20 mg Tablet See Rx Instructions .ROUTE .COMPLEX Qty: 10 0RF Rx Instructions: 20 mg tomorrow, then 10 mg daily for 2 days, then 5 mg daily levofloxacin 750 mg Tablet 750 mg PO Q48H Qty: 2 0RF Rx Instructions: one friday, one friday Continued nystatin 100,000 unit/mL Suspension 5 ml PO QID PRN PRN naloxone [Narcan] 4 mg/actuation [place],Non-Aerosol 4 mg INTRANASAL PRN PRN (DME) rolling walker with seat Qty: 1 0RF Rx Instructions: As directed with ambulation metoprolol succinate 25 mg tablet extended release 24 hr 25 mg PO DAILY insulin aspart U-100 [Novolog Flexpen U-100 Insulin] 300 UNITS/3 ML insulin pen 2 - 20 units Sub-Q 0800,1200,1700 Rx Instructions: Dispense one pen see sliding scale insulin glargine [Basaglar KwikPen U-100 Insulin] 100 unit/mL (3 mL) Insulin Pen 30 unit SUBCUT DAILY bupropion HCl 150 mg tablet sustained-release 12 hr 1 tab PO BID Label Comments: TAKE ONE TABLET BY MOUTH TWICE A DAY lisinopril 2.5 mg tablet 2.5 mg PO DAILY Label Comments: TAKE ONE TABLET BY MOUTH EVERY DAY nitroglycerin [Nitrostat] 0.4 MG tablet, sublingual 0.4 mg Sublingual PRN PRN cyclobenzaprine 10 mg tablet 10 mg PO Q8H PRN PRN atorvastatin 40 mg tablet 40 mg PO DAILY Label Comments: TAKE ONE TABLET BY MOUTH EVERY DAY prednisone 10 mg tablet 5 mg PO DAILY Label Comments: TAKE 1 TABLET BY MOUTH ONCE DAILY cetirizine 10 mg tablet 10 mg PO DAILY Label Comments: TAKE ONE TABLET BY MOUTH EVERY DAY hydrocodone-acetaminophen 5-325 mg tablet 1 tab PO Q8H PRN PRN Label Comments: TAKE ONE TABLET BY MOUTH EVERY 6 TO 8 HOURS NEEDED cyanocobalamin (vitamin B-12) [Vitamin B-12] 1,000 mcg tablet 1,000 mcg PO DAILY Label Comments: TAKE ONE TABLET BY MOUTH EVERY DAY aspirin 81 mg tablet,delayed release (/EC) 81 mg PO DAILY Label Comments: TAKE ONE TABLET BY MOUTH EVERY DAY magnesium oxide 400 mg (241.3 mg magnesium) tablet 400 mg PO TID Label Comments: TAKE ONE TABLET BY MOUTH TWICE A DAY pyridoxine (vitamin B6) 100 mg tablet 100 mg PO DAILY Label Comments: TAKE ONE TABLET BY MOUTH EVERY DAY fluticasone propionate 50 mcg/actuation spray,suspension 1 spray INTRANASAL DAILY Label Comments: INSTILL 2 SPRAYS NASALLY DAILY duloxetine 30 mg capsule,delayed release(DR/EC) 30 mg PO DAILY Label Comments: TAKE ONE CAPSULE BY MOUTH EVERY DAY WITH 60MG duloxetine 60 mg capsule,delayed release(DR/EC) 60 mg PO DAILY Label Comments: TAKE ONE CAPSULE BY MOUTH EVERY DAY dexlansoprazole [Dexilant] 60 mg capsule,biphase delayed releas 60 mg PO DAILY Label Comments: TAKE ONE CAPSULE BY MOUTH EVERY DAY docusate sodium 250 mg Capsule 250 mg PO DAILY PRN Discharge Instructions Instructions: Urinary Tract Infection in Women (ED), Secondary Adrenal Insufficiency (DC) Additional Instructions: Taper steroids as directed Continue antibiotics for 2 more doses, one FridayFebruary 09 and one on FridayFebruary 11 to complete your course of antibiotics. Stand Alone Forms: Nursing Discharge Form Referrals: Maylin Garcia [Primary Care Provider] - [facility] Physical Therapy [Provider Group] Activity:: Activity as Tolerated Equipment/Supplies:: No Equipment Needed Diet:: Carb Counting Discharge Orders Discharge Orders: Discharge Order (Routine); Ordered 02/08/22 Ordered By: Karrie Landin DS: Summary Time Spent with Patient providing and/or coordinating discharge services: Greater than 30 minutes Status at Discharge Functional status at discharge: uses cane/walker Overall status at discharge: patient is progressing back to baseline Mental Status: mental status grossly normal Speech and Movement: speech and movement normal Mood: congruent mood Affect: normal affect Exam Const General: cooperative and comfortable Nutritional Appearance: obese Orientation: alert, awake and oriented x3 HENMT Head: normal to inspection, normocephalic and atraumatic Mouth: oral mucosae normal Neck Neck: normal visual inspection Chest Chest: normal inspection of the chest Resp Effort & Inspection: normal respiratory effort Cardio Rate: regular rate Rhythm: regular rhythm GI Inspection: normal to inspection, large pannus and obesity Auscultation: normal bowel sounds Skin General skin exam: no rashes or lesions noted Neuro General: patient alert, patient awake, patient oriented x3 and no focal motor deficits Extrem General: normal to inspection and full ROM Psych Mental Status: mental status grossly normal Speech and Movement: speech and movement normal Mood: congruent mood Affect: normal affect DS: Data Vitals/I&O Vitals and I&O: Vital Signs Temperature 35.8 C L 02/08/22 07:54 Temperature Source Tympanic 02/08/22 07:54 Pulse 95 H 02/08/22 07:54 Pulse Rhythm Regular 02/08/22 04:43 Pulse 108 H 02/05/22 21:20 Respiratory Rate 14 02/08/22 07:54 Respiratory Effort Non-Labored 02/08/22 04:43 Respiratory Depth Normal 02/07/22 17:20 Respiratory Pattern Normal 02/07/22 17:20 Blood Pressure 134/78 02/08/22 07:54 Blood Pressure Mean 75 02/05/22 23:45 Blood Pressure Position Sitting 02/05/22 20:13 Pulse Oximetry 97 02/08/22 07:54 Oxygen Delivery Method Room Air 02/08/22 07:54 Oxygen Flow Rate 0 02/08/22 07:54 Pain Level 6 02/08/22 10:13 Comment 02/07/22 23:30 Intake & Output 02/07/22 02/07/22 02/08/22 11:59 23:59 11:59 Intake Total 2480 / 3780 1300 / 3780 150 / 150 Output Total 2450 / 4050 1600 / 4050 Balance 30 / -270 -300 / -270 150 / 150 Weight 115.7 kg 116.7 kg Intake: IV 2000 / 2100 100 / 2100 150 / 150 Oral 480 / 1680 1200 / 1680 Output: Urine 2450 / 4050 1600 / 4050 Other: Urine Color Yellow Yellow Urine Appearance Clear Clear Clear Urine Odor Normal Normal Voiding Methods Toilet Toilet Data Completed and Pending Labs on day of discharge: Labs from last 24 hours 02/08/22 02/08/22 02/08/22 10:49 06:20 06:20 WBC 8.28 RBC 3.52 L Hgb 10.8 L Hct 31.3 L MCV 89 MCH 30.7 MCHC 34.5 RDW 13.8 Plt Count 238 MPV 10.5 Immature Gran % 1.0 Neutrophils % 53.1 Lymphocytes % 36.0 Monocytes % 6.3 Eosinophils % 2.8 Basophils % 0.8 Nucleated RBC % 0.0 Absolute Neutrophils 4.40 Absolute Lymphocytes 2.98 Absolute Monocytes 0.52 Absolute Eosinophils 0.23 Absolute Basophils 0.07 Sodium 142 Potassium 3.8 Chloride 107 Carbon Dioxide 23.9 Anion Gap 11.1 H BUN 42 H Creatinine 2.2 H Estimated GFR/1.73 m2 22.69 Glucose 177 H Calcium 8.7 Magnesium 2.0 COVID-19 Source Pending SARS-CoV-2 (PCR) Pending Preliminary micro results at discharge 02/06/22 04:05 Urine Culture - Preliminary Urine - Clean Catch Escherichia coli Gram Positive Kaylene,Mixed PFSH All Active Problems (Updated 02/08/22 @ 10:52 by Karrie Landin NP) Hyperglycemia (Acute) Discharge planning issues (Acute) DVT prophylaxis (Acute) Acute adrenal insufficiency (Acute) URI (upper respiratory infection) (Acute) Headache (Acute) Urinary tract infection (Acute) Atypical chest pain (Acute) Hypomagnesemia (Acute) COVID-19 (Acute) Coronary artery disease (Chronic) Chest pain (Acute) CAD (coronary atherosclerotic disease) (Acute) 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 (Acute) Type 1 diabetes mellitus with diabetic polyneuropathy (Acute) Primary osteoarthritis of both first carpometacarpal joints (Acute 12/22/17) Hypertension (Chronic) Insomnia (Acute) GERD (gastroesophageal reflux disease) (Chronic) Type 2 diabetes mellitus (Chronic) Chronic kidney disease (Chronic) COPD (chronic obstructive pulmonary disease) (Chronic) Mixed anxiety depressive disorder (Acute) Medical History Acute exacerbation of chronic obstructive airways disease Acute sinusitis Allergic rhinitis Anemia Benign neoplasm of peripheral 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 No complications. Cholecystectomy Coronary Stent H/O lumpectomy Hx of tubal ligation Family History Brother Diabetes Hypertension Heart disease Stroke Obesity Chronic headaches Arthritis Brother Arthritis Chronic headaches Diabetes Heart disease Hypertension Obesity Stroke Father Heart disease Stroke Hypertension Chronic headaches Sister Diabetes Obesity Osteoporosis Daughter Migraine Obesity Brother Arthritis Diabetes Chronic headaches Hypertension Obesity Stroke Mother Asthma Arthritis Diabetes Obesity Stroke Glaucoma Social History Smoking/Tobacco Use Status: Former Tobacco Use Quit Date: 04/13/19 Pack-years: 45 Tobacco: How many years used: 45 Quit status: considering quitting Smoking risk assessment performed?: Yes Alcohol Intake: never Drug use: Never Substance use type: does not use Details: Quit smoking 6 months ago. Household members: friend(s) Housing: apartment Number of Children: 3 number of grandchildren: 14 current occupation: none What is your relationship status?: Panel score (0-1 are the most socially isolated patients): 0 What type of physical activity do you participate in: none Do you feel safe at home: Yes Do you feel safe in your relationship?: Yes
[2022-02-08 11:08] LABS: Source Nasal/Nares
[2022-02-08 11:30] VITALS: BP 116/73; PULSE 104; RESP 16; TEMP 36.3; O2SAT 98
[2022-02-08 12:06] LABS: COVID-19 PCR Negative (Negative)
[2022-02-08 13:22] VITALS: PULSE 120; PULSE 133; PULSE 137; RESP 18; RESP 22; RESP 24; O2SAT 94; O2SAT 96; O2SAT 97
--- NOTE | 2022-02-08 13:33 | CMDISCH_ITS ---
- If Service Date Differs Date of service: 02/08/22 Time of Service: 13:33 LACE Index Scoring Tool - Questions: Acuity (Admit via E.D.?): Yes Comorbidities: Diabetes w/o Complication, Chronic Pulmonary Disease, Mild Liver/Renal Disease, Any Tumor E.D. Visits: 3 Care Management Discharge Reason for Hospitalization: UTI, ISA, Dehydration Discharge Plan: Nimisha is discharged home via private vehicle with her roommate Yesenia. Nimisha declines any [facility] services. Outpt PT referral sent to [facility] No new supplimental O2 is indicated at time of discharge, per RT. Nimisha will call [facility] on Friday, if she decides to go with plan of SNF for STR. Patient/Family Education Needs: Review discharge instructions, limitations, medications and plan to follow up with community providers. ask me three. Services Needed at Discharge: Physical Therapy ([facility])
--- NOTE | 2022-02-08 14:41 | PT.INTREAT ---
Date of service: 02/08/22 Time of Service: 13:10 PT Notes Visit Reasons: UTI, ISA, dehydration Inpatient Physical Therapy Treatment Note [facility] Date: 02/08/2022 PRECAUTIONS: Fall, Activity as tolerated SUBJECTIVE: Nimisha is pleasant and agreeable to participating in PT. She reports that she is feeling very cold today. She is disappointed that she does not qualify for home supplemental oxygen. OBJECTIVE: PAIN: No c/o pain BED MOBILITY/TRANSFERS Sit-stand: I Stand-sit: I GAIT Assistive Device: 4WW Weight bearing: Full Assist: S Distance: 100' Deviation: Pt c/o SOB and increased B LE fatigue VITALS: Session completed in collaboration with RT. See their note for specific vital sign details. TOILETING: Patient toileted independently ASSESSMENT: Patient continues to demonstrate limited activity tolerance, c/o SOB and fatigue with gait training. She demonstrates independence with transfers at this time. PLAN: Patient to discharge to home later today, per provider. Recommend follow up with outpatient PT for continued conditioning and global strengthening. TREATMENT CODE/TIME: 15 minutes; 44997 (13:10)
--- NOTE | 2022-02-09 12:15 | PT.INDS ---
PT Notes Visit Reasons: UTI, ISA, dehydration Physical Therapy Inpatient Initial Evaluation Treatment Dates: 02/06/22 - 02/08/22 Referring Doctor: Rosie Narvaez MD PT Orders: PT CONSULT: Limited Ability Precautions: Fall. Standard. This document serves as a summary of care. No PT services were provided on this date. Patient Profile/Admitting Diagnosis: Nimisha is a 61 yo female that presented to the ER on 02/05/22 for light headedness. She was found to have ISA, UTI, and dehydration. She was seen for 4 PT sessions over the course of 3 days, and demonstrated safety and mobility sufficient to allow for safe return home. Requires continued rehabilitation in outpatient setting for continued progress toward community goals. PMHX: See EMR Social History/Home Situation: Lives with roommate in apartment, has elevator. Reports no use of assistive device at home, but uses 4WW if going to doctor appointment. Equipment Owned/DME: 4WW Subjective: none obtained Objective: ROM: Right Upper Extremity: Shoulder Flexion WFL. Shoulder abduction WFL. Elbow flexion WFL. Wrist flexion WFL. Opening and closing of hand WFL. Left Upper Extremity: Shoulder Flexion WFL. Shoulder abduction WFL. Elbow flexion WFL. Wrist flexion WFL. Opening and closing of hand WFL. Right Lower Extremity: Hip flexion WFL. Hip abduction WFL. Knee flexion WFL. Ankle dorsiflexion WFL. Ankle plantarflexion WFL. Left Lower Extremity: Hip flexion WFL. Hip abduction WFL. Knee flexion WFL. Ankle dorsiflexion WFL. Ankle plantarflexion WFL. Strength: Right Upper Extremity: Shoulder flexors 4/5. Shoulder abductors 4+/5. Elbow flexors 5-/5. Elbow extensors 5/5. Auto Painter Helper strong. Left Upper Extremity: Shoulder flexors 4/5. Shoulder abductors 4+/5. Elbow flexors 5-/5. Elbow extensors 5/5. Auto Painter Helper strong. Right Lower Extremity: Hip flexors 4/5. Knee flexors 5-/5. Knee extensors 4+/5. Ankle dorsiflexors 4+/5. Ankle plantarflexors 4+/5. Left Lower Extremity: Hip flexors 4/5. Knee flexors 5-/5. Knee extensors 4+/5. Ankle dorsiflexors 4+/5. Ankle plantarflexors 4+/5. Sensation: Intact as to pain and pressure on bilateral lower extremities. Bed Mobility/Transfers: Supine to sit: independent Sit to supine: independent Sit to stand: independent Stand to sit: independent Gait: Ambulated up to 100' with 4WW and supervision, with XIE. Balance: Static Sitting: Normal Dynamic Sitting: Good Static Standing: Fair Dynamic Standing: Poor Assessment: Patient seen for 4 PT sessions over the course of 3 days, with improvements in activity tolerance ,safety and mobility. She is appropriate for d/c home with outpatient PT for progress toward community goals. Goals: Goals x1 week 1. Supine-Sit: independent (MET) 2. Sit-Supine: independent (MET) 3. Sit-Stand: independent (MET) 4. Stand-Sit: independent (MET) 5. Bed-Chair: independent (progressing toward, completing with 4WW and supervision) 6. Chair-Bed: independent (progressing toward, completing with 4WW and supervision) 7. Independent gait on level surface with use of least restrictive device for at least 100 feet without report of pain nor dyspnea (progressing toward, completing with supervision and continued XIE) 8. Independent with home exercise program (MET) 9. Good static and dynamic standing balance/tolerance (progressing toward) Plan of Care/Treatment Plan: d/c from PT in acute care setting. Discharge Plan DISCHARGE RECOMMENDATIONS: Home with outpatient PT
== END 2022-02-08 13:55 | disposition home or self-care (01) | DRG 683 ==
LOC: ER 02-06 00:02 → MS 02-06 00:11
PROVIDERS: Family Medicine; Nurse Practitioner Acute Care; Nurse Practitioner Family; Admitting Provider Internal Medicine; Emergency Provider Emergency Medicine; PCP Nurse Practitioner Family; Visit Provider Internal Medicine
DX: N17.9 Acute kidney failure, unspecified (principal); N39.0 Urinary tract infection, site not specified; E27.40 Unspecified adrenocortical insufficiency; R55 Syncope and collapse; I12.9 Hypertensive chronic kidney disease with stage 1 through stage 4 chronic kidney disease, or unspecified chronic kidney disease; N18.30 Chronic kidney disease, stage 3 unspecified; E86.0 Dehydration; E10.65 Type 1 diabetes mellitus with hyperglycemia; Z79.4 Long term (current) use of insulin; T38.3X6A Underdosing of insulin and oral hypoglycemic [antidiabetic] drugs, initial encounter; T38.0X5A Adverse effect of glucocorticoids and synthetic analogues, initial encounter; I25.10 Atherosclerotic heart disease of native coronary artery without angina pectoris; Z95.5 Presence of coronary angioplasty implant and graft; E78.5 Hyperlipidemia, unspecified; Z79.52 Long term (current) use of systemic steroids; R00.0 Tachycardia, unspecified; E10.22 Type 1 diabetes mellitus with diabetic chronic kidney disease; E10.42 Type 1 diabetes mellitus with diabetic polyneuropathy; E10.319 Type 1 diabetes mellitus with unspecified diabetic 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 edema; Z86.16 Personal history of COVID-19; G47.00 Insomnia, unspecified; F41.8 Other specified anxiety disorders; Z87.891 Personal history of nicotine dependence; E83.42 Hypomagnesemia; B96.20 Unspecified Escherichia coli [E. coli] as the cause of diseases classified elsewhere; J44.9 Chronic obstructive pulmonary disease, unspecified; M79.7 Fibromyalgia
CPT/HCPCS: 36415; 36416; 76770; 80048; 80053; 82805; 82962; 83690; 84145; 87077; 87635; 93005; 94618; 96361; 96365; 96375; 97163; 97530; 99285; 70450; 71046; 74176; 81003; 81015; 83735; 84439; 84443; 84484; 85025; 87086; 87186; 93010; 93306; 99223; 99232; 99239; J1644; J1720; J1956; J3490; J7512

== ENCOUNTER 2022-02-10 13:56 | Emergency (ER) | payer MEDICARE, MEDICAID, SELFPAY ==
[2022-02-10 14:09] VITALS: BP 121/75; PULSE 107; RESP 17; TEMP 36.4; O2SAT 99
--- NOTE | 2022-02-10 14:35 | ED.GENADUL_ITS ---
Discharge Plan Disposition Patient Disposition: HOME Condition: Stable Discharge Details Clinical Impression: Escherichia coli urinary tract infection, Hyperglycemia Primary Care Provider: Maylin Garcia ED Provider: Harry Baker Home Meds and New Rx's Prescriptions: New nitrofurantoin macrocrystal 100 mg capsule 100 mg PO BID Qty: 13 0RF Rx Instructions: must administer with a meal/food Continued nystatin 100,000 unit/mL Suspension 5 ml PO QID PRN PRN naloxone [Narcan] 4 mg/actuation [place],Non-Aerosol 4 mg INTRANASAL PRN PRN (DME) rolling walker with seat Qty: 1 0RF Rx Instructions: As directed with ambulation metoprolol succinate 25 mg tablet extended release 24 hr 25 mg PO DAILY insulin aspart U-100 [Novolog Flexpen U-100 Insulin] 300 UNITS/3 ML insulin pen 2 - 20 units Sub-Q 0800,1200,1700 Rx Instructions: Dispense one pen see sliding scale bupropion HCl 150 mg tablet sustained-release 12 hr 1 tab PO BID Label Comments: TAKE ONE TABLET BY MOUTH TWICE A DAY lisinopril 2.5 mg tablet 2.5 mg PO DAILY Label Comments: TAKE ONE TABLET BY MOUTH EVERY DAY prednisone 20 mg Tablet See Rx Instructions .ROUTE .COMPLEX Qty: 10 0RF Rx Instructions: 20 mg tomorrow, then 10 mg daily for 2 days, then 5 mg daily nitroglycerin [Nitrostat] 0.4 MG tablet, sublingual 0.4 mg Sublingual PRN PRN cyclobenzaprine 10 mg tablet 10 mg PO Q8H PRN PRN atorvastatin 40 mg tablet 40 mg PO DAILY Label Comments: TAKE ONE TABLET BY MOUTH EVERY DAY prednisone 10 mg tablet 5 mg PO DAILY Label Comments: TAKE 1 TABLET BY MOUTH ONCE DAILY cetirizine 10 mg tablet 10 mg PO DAILY Label Comments: TAKE ONE TABLET BY MOUTH EVERY DAY hydrocodone-acetaminophen 5-325 mg tablet 1 tab PO Q8H PRN PRN Label Comments: TAKE ONE TABLET BY MOUTH EVERY 6 TO 8 HOURS NEEDED cyanocobalamin (vitamin B-12) [Vitamin B-12] 1,000 mcg tablet 1,000 mcg PO DAILY Label Comments: TAKE ONE TABLET BY MOUTH EVERY DAY aspirin 81 mg tablet,delayed release (DR/EC) 81 mg PO DAILY Label Comments: TAKE ONE TABLET BY MOUTH EVERY DAY magnesium oxide 400 mg (241.3 mg magnesium) tablet 400 mg PO TID Label Comments: TAKE ONE TABLET BY MOUTH TWICE A DAY pyridoxine (vitamin B6) 100 mg tablet 100 mg PO DAILY Label Comments: TAKE ONE TABLET BY MOUTH EVERY DAY fluticasone propionate 50 mcg/actuation spray,suspension 1 spray INTRANASAL DAILY Label Comments: INSTILL 2 SPRAYS NASALLY DAILY duloxetine 30 mg capsule,delayed release(DR/EC) 30 mg PO DAILY Label Comments: TAKE ONE CAPSULE BY MOUTH EVERY DAY WITH 60MG duloxetine 60 mg capsule,delayed release(DR/EC) 60 mg PO DAILY Label Comments: TAKE ONE CAPSULE BY MOUTH EVERY DAY dexlansoprazole [Dexilant] 60 mg capsule,biphase delayed releas 60 mg PO DAILY Label Comments: TAKE ONE CAPSULE BY MOUTH EVERY DAY docusate sodium 250 mg Capsule 250 mg PO DAILY PRN insulin glargine [Basaglar KwikPen U-100 Insulin] 100 unit/mL (3 mL) insulin pen 30 unit SUBCUT BID Label Comments: INJECT 60 UNITS SUBCUTANEOUSLY ONCE DAILY (30 UNITS EVERY MORNING AND 30 UNITS QPM) Discontinued levofloxacin 750 mg Tablet 750 mg PO Q48H Qty: 2 0RF Rx Instructions: one friday, one friday Discharge Instructions Instructions: Nitrofurantoin (By mouth), Urinary Tract Infection in Women (ED), Diabetic Hyperglycemia (ED) Additional Instructions: Please stop taking antibiotic Levaquin. Please start taking new antibiotic nitrofurantoin. Be sure to complete full course as prescribed. Monitor your blood sugar and take insulin as prescribed Please contact your primary care physician to arrange follow-up. You can reach out to [facility] care management at or your primary care physician office resident care associate tomorrow to help arrange care home facility placement if you are interested in this. Return to the ER immediately for any worsening or new concerning symptoms. Referrals: Maylin Garcia [Primary Care Provider] - Discharge Data Discharge Date/Time-TO BE ENTERED AT DEPARTURE: 02/10/22 16:45 Medical Decision Making 1500 --61-year-old female recently hospitalized for urinary tract infection, discharged on 02/08/2022, has been taking Levaquin as prescribed, here with persistent urinary symptoms. Patient is hemodynamically stable, afebrile, not septic appearing. I reviewed urine culture from 02/06/2022 that resulted today, growing E. coli that is resistant to fluoroquinolones including Levaquin. Patient does have multiple antibiotic allergies. Culture is sensitive to nitrofurantoin. Plan to initiate treatment today. A fingerstick was checked and she is hyperglycemic with blood sugar 240. While patient was hospitalized there was recommendation that she be transitioned to care home facility and she declined this plan. She was seen by physical therapist and cleared for discharge to home. Patient is now interested in care home facility placement. I called and spoke with resident care associate on- call who notes this is not possible to arrange for today but that patient has had a qualifying inpatient stay and could be placed tomorrow from home. I will check COVID testing here today to hopefully help expedite placement tomorrow. -- Plan for discharge to home and likely placement at nursing rehab this week. Plan was discussed with the patient who is in agreement. HPI General Mode of arrival: EMS . Date/Time Provider Initiated Documentation: 02/10/22 14:04 . Limitations to Documentation: no limitations . Information obtained by: patient and EMS . HPI Narrative: 61yo f with multiple medical problems, recently hospitalized here for urinary tract infection with dehydration, discharged on 02/08/2022, returns today with continued urinary symptoms. Patient notes dysuria that feels like a burning that is moderate and persistent. No modifiers. She notes she has been taking the Levaquin as prescribed and does not seem to be helping. She has associated abdominal discomfort in her lower suprapubic area. No flank pain. No fevers. No nausea or vomiting. Patient has some challenging social situations at home. Apparently her son is living with her at this time as he goes through a divorce. Denies physical abuse. Related Data Home Medications Medication Instructions Recorded Confirmed nitroglycerin 0.4 mg sublingual 0.4 mg sublingual PRN PRN 06/01/17 02/10/22 tablet (Nitrostat) naloxone 4 mg/actuation nasal 4 mg intranasal PRN PRN 09/10/19 02/10/22 spray (Narcan) nystatin 100,000 unit/mL oral 5 ml PO QID PRN PRN 09/10/19 02/10/22 suspension rolling walker with seat #1 ea 01/12/20 02/10/22 aspirin 81 mg tablet,delayed 81 mg PO DAILY 06/24/20 02/10/22 release atorvastatin 40 mg tablet 40 mg PO DAILY 06/24/20 02/10/22 cetirizine 10 mg tablet 10 mg PO DAILY 06/24/20 02/10/22 cyanocobalamin (vitamin B-12) 1,000 mcg PO DAILY 06/24/20 02/10/22 1,000 mcg tablet (Vitamin B-12) cyclobenzaprine 10 mg tablet 10 mg PO Q8H PRN PRN 06/24/20 02/10/22 dexlansoprazole 60 mg 60 mg PO DAILY 06/24/20 02/10/22 capsule,biphase delayed release (Dexilant) duloxetine 30 mg capsule,delayed 30 mg PO DAILY 06/24/20 02/10/22 release duloxetine 60 mg capsule,delayed 60 mg PO DAILY 06/24/20 02/10/22 release fluticasone propionate 50 1 spray intranasal DAILY 06/24/20 02/10/22 mcg/actuation nasal spray,suspension hydrocodone 5 mg-acetaminophen 325 1 tab PO Q8H PRN PRN 06/24/20 02/10/22 mg tablet magnesium oxide 400 mg (241.3 mg 400 mg PO TID 06/24/20 02/10/22 magnesium) tablet prednisone 10 mg tablet 5 mg PO DAILY 06/24/20 02/10/22 pyridoxine (vitamin B6) 100 mg 100 mg PO DAILY 06/24/20 02/10/22 tablet docusate sodium 250 mg capsule 250 mg PO DAILY PRN 07/16/20 02/10/22 insulin aspart U-100 100 unit/mL 2 - 20 units subcut 0800,1200,1700 11/15/20 02/10/22 (3 mL) subcutaneous pen (Novolog Flexpen U-100 Insulin aspart) metoprolol succinate 25 mg 25 mg PO DAILY 01/09/21 02/10/22 tablet,extended release 24 hr bupropion HCl 150 mg tablet,12 hr 1 tab PO BID 02/07/22 02/10/22 sustained-release lisinopril 2.5 mg tablet 2.5 mg PO DAILY 02/07/22 02/10/22 prednisone 20 mg tablet See Rx Instructions .Route 02/08/22 02/10/22 .COMPLEX #10 tabs insulin glargine 100 unit/mL (3 30 unit subcut BID 02/10/22 02/10/22 mL) subcutaneous pen (Basaglar KwikPen U-100 Insulin) nitrofurantoin macrocrystal 100 mg 100 mg PO BID #13 caps 02/10/22 capsule Previous Rx's Medication Instructions Recorded rolling walker with seat #1 ea 01/12/20 prednisone 20 mg tablet See Rx Instructions .Route 02/08/22 .COMPLEX #10 tabs nitrofurantoin macrocrystal 100 mg 100 mg PO BID #13 caps 02/10/22 capsule Allergies Allergy/AdvReac Type Severity Reaction Status Date / Time quetiapine [From Seroquel] Allergy Intermediate Unverified 02/10/22 14:16 amoxicillin [From Augmentin] Allergy Unverified 02/10/22 14:16 clavulanic acid Allergy Unverified 02/10/22 14:16 [From Augmentin] Penicillins Allergy Unverified 02/10/22 14:16 Sulfa (Sulfonamide Allergy Unverified 02/10/22 14:16 Antibiotics) exenatide [From [place]] AdvReac Intermediate diarrhea Unverified 02/10/22 14:16 metformin AdvReac Intermediate diarrhea Unverified 02/10/22 14:16 amitriptyline AdvReac made my Unverified 02/10/22 14:16 face go numb amoxicillin trihydrate AdvReac acute Unverified 02/10/22 14:16 [From Augmentin] kidney failure NSAIDS (Non-Steroidal AdvReac stage III Unverified 02/10/22 14:16 Anti-Inflamma kidney disease potassium clavulanate AdvReac acute Unverified 02/10/22 14:16 [From Augmentin] kidney failure General Stated Complaint: GenMedical SADE: 3 Review of Systems All systems reviewed & are unremarkable except as noted in HPI and below Constitutional Constitutional: Denies fever(s) and Reports weakness (generalized) Genitourinary Genitourinary: Reports as per HPI Neurologic Neurologic: Reports weakness (generalized) PFSH All Active Problems (Updated 02/10/22 @ 16:00 by Harry Baker MD) Escherichia coli urinary tract infection (Acute) Hyperglycemia (Acute) Hyperglycemia (Acute) Acute adrenal insufficiency (Acute) URI (upper respiratory infection) (Acute) Headache (Acute) Urinary tract infection (Acute) Atypical chest pain (Acute) Hypomagnesemia (Acute) COVID-19 (Acute) Coronary artery disease (Chronic) Chest pain (Acute) CAD (coronary atherosclerotic disease) (Acute) 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 (Acute) Type 1 diabetes mellitus with diabetic polyneuropathy (Acute) Primary osteoarthritis of both first carpometacarpal joints (Acute 12/22/17) Hypertension (Chronic) Insomnia (Acute) GERD (gastroesophageal reflux disease) (Chronic) Chronic kidney disease (Chronic) COPD (chronic obstructive pulmonary disease) (Chronic) Mixed anxiety depressive disorder (Acute) Medical History Acute exacerbation of chronic obstructive airways disease Acute sinusitis Allergic rhinitis Anemia Benign neoplasm of peripheral nerve Benign neoplasm of peripheral nerves and autonomic nervous system, unspecified Cataracts, bilateral Chronic renal impairment associated with type 2 diabetes mellitus CKD stage 3 due to type 2 diabetes mellitus Colon polyp Depression Diabetes pt reports elevated HgbA1c. 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 No complications. Cholecystectomy Coronary Stent H/O lumpectomy Hx of tubal ligation Family History Brother Diabetes Hypertension Heart disease Stroke Obesity Chronic headaches Arthritis Brother Arthritis Chronic headaches Diabetes Heart disease Hypertension Obesity Stroke Father Heart disease Stroke Hypertension Chronic headaches Sister Diabetes Obesity Osteoporosis Daughter Migraine Obesity Brother Arthritis Diabetes Chronic headaches Hypertension Obesity Stroke Mother Asthma Arthritis Diabetes Obesity Stroke Glaucoma Social History Smoking/Tobacco Use Status: Former Tobacco Use Quit Date: 04/13/19 Pack-years: 45 Tobacco: How many years used: 45 Quit status: considering quitting Smoking risk assessment performed?: Yes Alcohol Intake: never Drug use: Never Substance use type: does not use Details: Quit smoking 6 months ago. Household members: friend(s) Housing: apartment Number of Children: 3 number of grandchildren: 14 current occupation: none What is your relationship status?: Panel score (0-1 are the most socially isolated patients): 0 What type of physical activity do you participate in: none Do you feel safe at home: Yes Do you feel safe in your relationship?: Yes Exam Const General: cooperative and no acute distress HENMT Mouth: moist mucous membranes Eyes Conjunctivae: normal conjunctivae Sclera: normal sclerae Resp Auscultation: clear to auscultation bilaterally, no rales, no rhonchi and no wheezes Cardio Rate: regular rate and not tachycardic Rhythm: regular rhythm GI Palpation: soft, not firm, no guarding, no masses, not rigid and nontender Back/Spine/Pelvis Back: no CVA tenderness Skin General skin exam: no rashes or lesions noted Neuro General: patient alert, patient awake and tone normal Course Vital Signs Vital signs: Vital Signs Temperature 36.4 C 02/10/22 14:09 Pulse 107 H 02/10/22 14:09 Respiratory Rate 17 02/10/22 14:09 Blood Pressure 121/75 02/10/22 14:09 Pulse Oximetry 99 02/10/22 14:09 Temperature 36.4 C 02/10/22 14:09 Temperature Source Oral 02/10/22 14:09 Pulse 107 H 02/10/22 14:09 Respiratory Rate 17 02/10/22 14:09 Respiratory Effort 02/10/22 14:21 Blood Pressure 121/75 02/10/22 14:09 Blood Pressure Position Sitting 02/10/22 14:09 Pulse Oximetry 99 02/10/22 14:09 Oxygen Delivery Method Room Air 02/10/22 14:09 Oxygen Flow Rate 0 02/10/22 14:09 Pain Level 8 02/10/22 14:09 Comment 02/10/22 14:09
[2022-02-10 15:11] LABS: Source Nasal/Nares
[2022-02-10 16:18] VITALS: BP 137/81; PULSE 103; RESP 18; TEMP 36.5; O2SAT 95
[2022-02-10 16:21] VITALS: RESP 18
[2022-02-10] MEDS: Nitrofurantoin Macrocrystal 50 MG CAP 100 MG PO (16:33)
[2022-02-10] MEDS: MacroBID 100 MG CAP (16:46)
[2022-02-10 20:29] LABS: COVID-19 PCR Negative (Negative)
== END 2022-02-10 16:45 | disposition home or self-care (01) ==
PROVIDERS: Emergency Provider Student in an Organized Health Care Education/Training Program; PCP Nurse Practitioner Family
DX: N39.0 Urinary tract infection, site not specified (principal); B96.20 Unspecified Escherichia coli [E. coli] as the cause of diseases classified elsewhere; R73.9 Hyperglycemia, unspecified
CPT/HCPCS: 36416; 82962; 87635; 99283; U0005

== ENCOUNTER 2022-03-22 21:58 | Emergency (ER) | payer MEDICARE, MEDICAID, SELFPAY ==
[2022-03-22 22:03] VITALS: BP 108/65; PULSE 113; RESP 16; TEMP 36.7; O2SAT 96
--- NOTE | 2022-03-22 23:09 | ED.GENADUL_ITS ---
Discharge Plan Disposition Patient Disposition: HOME Condition: Stable Discharge Details Clinical Impression: Cellulitis of external nose Primary Care Provider: Unknown,Unknown ED Provider: Branden Sequeira Home Meds and New Rx's Prescriptions: New clindamycin HCl 150 mg capsule 450 mg PO TID 7 Days Qty: 63 0RF Continued nystatin 100,000 unit/mL Suspension 5 ml PO QID PRN PRN naloxone [Narcan] 4 mg/actuation Melvin,Non-Aerosol 4 mg INTRANASAL PRN PRN (DME) rolling walker with seat Qty: 1 0RF Rx Instructions: As directed with ambulation metoprolol succinate 25 mg tablet extended release 24 hr 25 mg PO DAILY insulin aspart U-100 [Novolog Flexpen U-100 Insulin] 300 UNITS/3 ML insulin pen 2 - 20 units Sub-Q 0800,1200,1700 Rx Instructions: Dispense one pen see sliding scale bupropion HCl 150 mg tablet sustained-release 12 hr 1 tab PO BID Label Comments: TAKE ONE TABLET BY MOUTH TWICE A DAY lisinopril 2.5 mg tablet 2.5 mg PO DAILY Label Comments: TAKE ONE TABLET BY MOUTH EVERY DAY nitroglycerin [Nitrostat] 0.4 MG tablet, sublingual 0.4 mg Sublingual PRN PRN cyclobenzaprine 10 mg tablet 10 mg PO Q8H PRN PRN atorvastatin 40 mg tablet 40 mg PO DAILY Label Comments: TAKE ONE TABLET BY MOUTH EVERY DAY prednisone 10 mg tablet 5 mg PO DAILY Label Comments: TAKE 1 TABLET BY MOUTH ONCE DAILY cetirizine 10 mg tablet 10 mg PO DAILY Label Comments: TAKE ONE TABLET BY MOUTH EVERY DAY hydrocodone-acetaminophen 5-325 mg tablet 1 tab PO Q8H PRN PRN Label Comments: TAKE ONE TABLET BY MOUTH EVERY 6 TO 8 HOURS NEEDED cyanocobalamin (vitamin B-12) [Vitamin B-12] 1,000 mcg tablet 1,000 mcg PO DAILY Label Comments: TAKE ONE TABLET BY MOUTH EVERY DAY aspirin 81 mg tablet,delayed release (DR/EC) 81 mg PO DAILY Label Comments: TAKE ONE TABLET BY MOUTH EVERY DAY magnesium oxide 400 mg (241.3 mg magnesium) tablet 400 mg PO TID Label Comments: TAKE ONE TABLET BY MOUTH TWICE A DAY pyridoxine (vitamin B6) 100 mg tablet 100 mg PO DAILY Label Comments: TAKE ONE TABLET BY MOUTH EVERY DAY fluticasone propionate 50 mcg/actuation spray,suspension 1 spray INTRANASAL DAILY Label Comments: INSTILL 2 SPRAYS NASALLY DAILY duloxetine 30 mg capsule,delayed release(DR/EC) 30 mg PO DAILY Label Comments: TAKE ONE CAPSULE BY MOUTH EVERY DAY WITH 60MG duloxetine 60 mg capsule,delayed release(DR/EC) 60 mg PO DAILY Label Comments: TAKE ONE CAPSULE BY MOUTH EVERY DAY dexlansoprazole [Dexilant] 60 mg capsule,biphase delayed releas 60 mg PO DAILY Label Comments: TAKE ONE CAPSULE BY MOUTH EVERY DAY docusate sodium 250 mg Capsule 250 mg PO DAILY PRN insulin glargine [Basaglar KwikPen U-100 Insulin] 100 unit/mL (3 mL) insulin pen 30 unit SUBCUT BID Label Comments: INJECT 60 UNITS SUBCUTANEOUSLY ONCE DAILY (30 UNITS EVERY MORNING AND 30 UNITS QPM) Discharge Instructions Instructions: Cellulitis (ED) Additional Instructions: if not improving this week follow up with your primary care provider try to use warm compresses frequently during the day if you feel more ill, have severe worsening pain or fevers return to the emergency department Medical Decision Making 61 yo female with hx of DM, htn, gerd, ckd, copd, comes in with cc of red and swelling of the front of her nose for 3 days. She states she had a sore in the right anterior nare and she picked it off and had some drainage 3 days ago. She has had redness of the nose since and so came here. Denies fevers, chills or other systemic symptoms. On exam the front 1/3 of her nose is red and mildly swollen. There is no fluctuance, no visible white head in the nasal cavities or on the skin,no crepitus. No periorbital swelling. Given appearance suspect cellulitis no abscess currently to drain. She is allergic to penicillins so will start her on clindamycin. Advised to f/u with pcp this week if not improving and return precautions given Differential Diagnosis Differential Diagnosis: cellulitis, abscess HPI General Mode of arrival: ambulatory . Date/Time Provider Initiated Documentation: 03/22/22 22:56 . Limitations to Documentation: no limitations . Information obtained by: patient . History of Present Illness 61 year old F presents to the emergency department with the chief complaint of erythema of nose, described as moderate, Quality is described as aching, Patient reports no radiation. Patient started experiencing this day(s) (3) and it has been constant. No relieving factors improve symptom(s), No exacerbating factors reported . Patient notes no other symptoms.. Patient did receive the following treatments prior to arrival, none Related Data Home Medications Medication Instructions Recorded Confirmed nitroglycerin 0.4 mg sublingual 0.4 mg sublingual PRN PRN 06/01/17 03/22/22 tablet (Nitrostat) naloxone 4 mg/actuation nasal 4 mg intranasal PRN PRN 09/10/19 03/22/22 spray (Narcan) nystatin 100,000 unit/mL oral 5 ml PO QID PRN PRN 09/10/19 03/22/22 suspension rolling walker with seat #1 ea 01/12/20 02/10/22 aspirin 81 mg tablet,delayed 81 mg PO DAILY 06/24/20 03/22/22 release atorvastatin 40 mg tablet 40 mg PO DAILY 06/24/20 03/22/22 cetirizine 10 mg tablet 10 mg PO DAILY 06/24/20 03/22/22 cyanocobalamin (vitamin B-12) 1,000 mcg PO DAILY 06/24/20 03/22/22 1,000 mcg tablet (Vitamin B-12) cyclobenzaprine 10 mg tablet 10 mg PO Q8H PRN PRN 06/24/20 03/22/22 dexlansoprazole 60 mg 60 mg PO DAILY 06/24/20 03/22/22 capsule,biphase delayed release (Dexilant) duloxetine 30 mg capsule,delayed 30 mg PO DAILY 06/24/20 03/22/22 release duloxetine 60 mg capsule,delayed 60 mg PO DAILY 06/24/20 03/22/22 release fluticasone propionate 50 1 spray intranasal DAILY 06/24/20 03/22/22 mcg/actuation nasal spray,suspension hydrocodone 5 mg-acetaminophen 325 1 tab PO Q8H PRN PRN 06/24/20 03/22/22 mg tablet magnesium oxide 400 mg (241.3 mg 400 mg PO TID 06/24/20 03/22/22 magnesium) tablet prednisone 10 mg tablet 5 mg PO DAILY 06/24/20 03/22/22 pyridoxine (vitamin B6) 100 mg 100 mg PO DAILY 06/24/20 03/22/22 tablet docusate sodium 250 mg capsule 250 mg PO DAILY PRN 07/16/20 02/10/22 insulin aspart U-100 100 unit/mL 2 - 20 units subcut 0800,1200,1700 11/15/20 03/22/22 (3 mL) subcutaneous pen (Novolog Flexpen U-100 Insulin aspart) metoprolol succinate 25 mg 25 mg PO DAILY 01/09/21 03/22/22 tablet,extended release 24 hr bupropion HCl 150 mg tablet,12 hr 1 tab PO BID 02/07/22 03/22/22 sustained-release lisinopril 2.5 mg tablet 2.5 mg PO DAILY 02/07/22 03/22/22 insulin glargine 100 unit/mL (3 30 unit subcut BID 02/10/22 03/22/22 mL) subcutaneous pen (Basaglar KwikPen U-100 Insulin) clindamycin HCl 150 mg capsule 450 mg PO TID 7 days #63 caps 03/22/22 Previous Rx's Medication Instructions Recorded rolling walker with seat #1 ea 01/12/20 clindamycin HCl 150 mg capsule 450 mg PO TID 7 days #63 caps 03/22/22 Allergies Allergy/AdvReac Type Severity Reaction Status Date / Time quetiapine [From Seroquel] Allergy Intermediate Unverified 03/22/22 22:09 amoxicillin [From Augmentin] Allergy Unverified 03/22/22 22:09 clavulanic acid Allergy Unverified 03/22/22 22:09 [From Augmentin] Penicillins Allergy Unverified 03/22/22 22:09 Sulfa (Sulfonamide Allergy Unverified 03/22/22 22:09 Antibiotics) exenatide [From Byetta] AdvReac Intermediate diarrhea Unverified 03/22/22 22:09 metformin AdvReac Intermediate diarrhea Unverified 03/22/22 22:09 amitriptyline AdvReac made my Unverified 03/22/22 22:09 face go numb amoxicillin trihydrate AdvReac acute Unverified 03/22/22 22:09 [From Augmentin] kidney failure NSAIDS (Non-Steroidal AdvReac stage III Unverified 03/22/22 22:09 Anti-Inflamma kidney disease potassium clavulanate AdvReac acute Unverified 03/22/22 22:09 [From Augmentin] kidney failure General Stated Complaint: Cellulitis SADE: 4 Review of Systems All systems reviewed & are unremarkable except as noted in HPI and below Constitutional Constitutional: Denies chills, Denies fever(s) and Denies weakness Cardiovascular Cardiovascular: Denies chest pain and Denies dyspnea Respiratory Respiratory: Denies cough and Denies dyspnea Gastrointestinal Gastrointestinal: Denies abdominal pain, Denies nausea and Denies vomiting Neurologic Neurologic: Denies weakness PFSH All Active Problems (Updated 03/22/22 @ 23:14 by Branden Sequeira MD) Cellulitis of external nose (Acute) Hyperglycemia (Acute) Acute adrenal insufficiency (Acute) URI (upper respiratory infection) (Acute) Headache (Acute) Urinary tract infection (Acute) Atypical chest pain (Acute) Hypomagnesemia (Acute) COVID-19 (Acute) Coronary artery disease (Chronic) Chest pain (Acute) CAD (coronary atherosclerotic disease) (Acute) 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 (Acute) Type 1 diabetes mellitus with diabetic polyneuropathy (Acute) Primary osteoarthritis of both first carpometacarpal joints (Acute 12/22/17) Hypertension (Chronic) Insomnia (Acute) GERD (gastroesophageal reflux disease) (Chronic) Chronic kidney disease (Chronic) COPD (chronic obstructive pulmonary disease) (Chronic) Mixed anxiety depressive disorder (Acute) Medical History Acute exacerbation of chronic obstructive airways disease Acute sinusitis Allergic rhinitis Anemia Benign neoplasm of peripheral nerve Benign neoplasm of peripheral nerves and autonomic nervous system, unspecified Cataracts, bilateral Chronic renal impairment associated with type 2 diabetes mellitus CKD stage 3 due to type 2 diabetes mellitus Colon polyp Depression Diabetes pt reports elevated HgbA1c. 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 No complications. Cholecystectomy Coronary Stent H/O lumpectomy Hx of tubal ligation Family History Brother Diabetes Hypertension Heart disease Stroke Obesity Chronic headaches Arthritis Brother Arthritis Chronic headaches Diabetes Heart disease Hypertension Obesity Stroke Father Heart disease Stroke Hypertension Chronic headaches Sister Diabetes Obesity Osteoporosis Daughter Migraine Obesity Brother Arthritis Diabetes Chronic headaches Hypertension Obesity Stroke Mother Asthma Arthritis Diabetes Obesity Stroke Glaucoma Social History Smoking/Tobacco Use Status: Former Tobacco Use Quit Date: 04/13/19 Pack-years: 45 Tobacco: How many years used: 45 Quit status: considering quitting Smoking risk assessment performed?: Yes Alcohol Intake: never Drug use: Never Substance use type: does not use Details: Quit smoking 6 months ago. Household members: friend(s) Housing: apartment Number of Children: 3 number of grandchildren: 14 current occupation: none What is your relationship status?: Panel score (0-1 are the most socially isolated patients): 0 What type of physical activity do you participate in: none Do you feel safe at home: Yes Do you feel safe in your relationship?: Yes Exam Const General: no acute distress Orientation: alert HENMT Head: normal to inspection Ears: external ears normal Mouth: moist mucous membranes Eyes General: appearance normal, both eyes and all related structures Neck Neck: normal visual inspection Resp Effort & Inspection: normal respiratory effort and able to speak in complete sentences Cardio Rate: regular rate Neuro General: patient alert and patient oriented x3 Extrem General: normal to inspection Psych Mental Status: mental status grossly normal Course Vital Signs Vital signs: Vital Signs Temperature 36.7 C 03/22/22 22:03 Pulse 113 H 03/22/22 22:03 Respiratory Rate 16 03/22/22 22:03 Blood Pressure 108/65 03/22/22 22:03 Pulse Oximetry 96 03/22/22 22:03 Temperature 36.7 C 03/22/22 22:03 Pulse 113 H 03/22/22 22:03 Respiratory Rate 16 03/22/22 22:03 Respiratory Effort Non-Labored 03/22/22 22:13 Blood Pressure 108/65 03/22/22 22:03 Pulse Oximetry 96 03/22/22 22:03 Pain Level 10 03/22/22 22:03
[2022-03-22] MEDS: Clindamycin 150 MG CAP 450 MG PO (23:24)
== END 2022-03-22 23:33 | disposition home or self-care (01) ==
PROVIDERS: Emergency Provider Emergency Medicine
DX: J34.0 Abscess, furuncle and carbuncle of nose (principal); I12.9 Hypertensive chronic kidney disease with stage 1 through stage 4 chronic kidney disease, or unspecified chronic kidney disease; E11.22 Type 2 diabetes mellitus with diabetic chronic kidney disease; N18.30 Chronic kidney disease, stage 3 unspecified; J44.9 Chronic obstructive pulmonary disease, unspecified; Z79.4 Long term (current) use of insulin; Z87.891 Personal history of nicotine dependence; Z88.0 Allergy status to penicillin
CPT/HCPCS: 99283; 99284

== ENCOUNTER 2023-02-20 10:24 | Emergency (ER) | payer MEDICARE, MEDICAID, SELFPAY ==
[2023-02-20 10:29] VITALS: BP 148/81; PULSE 75; RESP 20; TEMP 36.5; O2SAT 99
--- NOTE | 2023-02-20 11:45 | DI.RAD_ITS ---
Exam(s) XR FEMUR RT EXAM: XR FEMUR RT CLINICAL HISTORY: fall thigh and hip pain. TECHNIQUE: 2D digital imaging was performed. AP and lateral views. COMPARISON: CR RIGHT TIB/FIB from 12/01/2017 FINDINGS: BONES: No acute fracture is present. No bony destructive lesion is seen. JOINTS: Visualized portion of knee and hip joints are unremarkable. SOFT TISSUE: Normal. IMPRESSION: Unremarkable radiographs of the right femur. DATA REPOSITORY: RADIATION DOSE DELIVERED:
--- NOTE | 2023-02-20 11:45 | DI.RAD_ITS ---
Exam(s) XR PELVIS AP EXAM: XR PELVIS AP CLINICAL HISTORY: fall, right hip thigh pain. TECHNIQUE: 2D digital imaging was performed. COMPARISON: CR XR hip LT complete AP pelvis from 04/26/2018 FINDINGS: BONES: No acute fracture is present. No bony destructive lesion is seen. JOINTS: No dislocation present. No joint space narrowing is present. Mild degenerative changes of t he SI joints. SOFT TISSUE: Normal. IMPRESSION: Unremarkable radiographs of the pelvis. DATA REPOSITORY: RADIATION DOSE DELIVERED:
--- NOTE | 2023-02-20 11:51 | W.ED.GENAD ---
Discharge Plan Disposition Patient Disposition: Home Condition: Stable Discharge Details Clinical Impression: Contusion of leg Primary Care Provider: Unknown,Unknown ED Provider: Juan Dominguez Home Meds and New Rx's Prescriptions: New lidocaine [Lidoderm] 5 % adhesive patch,medicated 1 patch topical DAILY PRNQty: 15 0RF Rx Instructions: leave on most painful area for up to 12 hrs No Action nystatin 100,000 unit/mL Suspension 5 ml PO QID PRN PRN naloxone [Narcan] 4 mg/actuation Viola,Non-Aerosol 4 mg INTRANASAL PRN PRN (DME) rolling walker with seat Qty: 1 0RF Rx Instructions: As directed with ambulation metoprolol succinate 25 mg tablet extended release 24 hr 25 mg PO DAILY insulin aspart U-100 [Novolog FlexPen U-100 Insulin] 300 UNITS/3 ML insulin pen 2 - 20 units Sub-Q 0800,1200,1700 Rx Instructions: Dispense one pen see sliding scale bupropion HCl 150 mg tablet sustained-release 12 hr 1 tab PO BID Patient Comments: TAKE ONE TABLET BY MOUTH TWICE A DAY lisinopril 2.5 mg tablet 2.5 mg PO DAILY Patient Comments: TAKE ONE TABLET BY MOUTH EVERY DAY nitroglycerin [Nitrostat] 0.4 MG tablet, sublingual 0.4 mg Sublingual PRN PRN cyclobenzaprine 10 mg tablet 10 mg PO Q8H PRN PRN atorvastatin 40 mg tablet 40 mg PO DAILY Patient Comments: TAKE ONE TABLET BY MOUTH EVERY DAY prednisone 10 mg tablet 5 mg PO DAILY Patient Comments: No longer taking 02/20/23 CT cetirizine 10 mg tablet 10 mg PO DAILY Patient Comments: no longer taking 02/20/23 CT hydrocodone-acetaminophen 5-325 mg tablet 1 tab PO Q8H PRN PRN Patient Comments: TAKE ONE TABLET BY MOUTH EVERY 6 TO 8 HOURS NEEDED cyanocobalamin (vitamin B-12) [Vitamin B-12] 1,000 mcg tablet 1,000 mcg PO DAILY Patient Comments: TAKE ONE TABLET BY MOUTH EVERY DAY aspirin 81 mg tablet,delayed release (DR/EC) 81 mg PO DAILY Patient Comments: TAKE ONE TABLET BY MOUTH EVERY DAY magnesium oxide 400 mg (241.3 mg magnesium) tablet 400 mg PO TID Patient Comments: No longer taking 02/20/23 CT pyridoxine (vitamin B6) 100 mg tablet 100 mg PO DAILY Patient Comments: TAKE ONE TABLET BY MOUTH EVERY DAY fluticasone propionate 50 mcg/actuation spray,suspension 1 spray INTRANASAL DAILY Patient Comments: INSTILL 2 SPRAYS NASALLY DAILY duloxetine 30 mg capsule,delayed release(DR/EC) 30 mg PO DAILY Patient Comments: TAKE ONE CAPSULE BY MOUTH EVERY DAY WITH 60MG duloxetine 60 mg capsule,delayed release(DR/EC) 60 mg PO DAILY Patient Comments: TAKE ONE CAPSULE BY MOUTH EVERY DAY dexlansoprazole [Dexilant] 60 mg capsule,biphase delayed releas 60 mg PO DAILY Patient Comments: No longer taking 02/20/23 CT docusate sodium 250 mg Capsule 250 mg PO DAILY PRN insulin glargine [Basaglar KwikPen U-100 Insulin] 100 unit/mL (3 mL) insulin pen 30 unit SUBCUT BID Patient Comments: INJECT 60 UNITS SUBCUTANEOUSLY ONCE DAILY (30 UNITS EVERY MORNING AND 30 UNITS QPM) loratadine 10 mg tablet 10 mg PO DAILY Patient Comments: TAKE ONE TABLET BY MOUTH EVERY DAY cholecalciferol (vitamin D3) [Vitamin D3] 25 mcg (1,000 unit) capsule 1,000 unit PO DAILY Patient Comments: TAKE 1 CAPSULE BY MOUTH ONCE DAILY magnesium citrate 100 mg Capsule 100 mg PO DAILY omeprazole 10 mg Capsule,Delayed Release(Dr/Ec) 10 mg PO DAILY Discharge Instructions Instructions: Contusion in Adults (ED) Medical Decision Making 62-year-old female presents 2 weeks after a fall onto her side, pain to her right hip and thigh. Ambulatory without assistance. Neurovascular exam of limb intact. No evidence of induration ecchymosis erythema or palpable deformity/step-off. Likely contusion low suspicion for fracture or dislocation. Screening x-ray. Trial of analgesia. 13: 52 no evidence of fracture or dislocation. HPI General Date/Time Provider Initiated Documentation: 02/20/23 11:42. HPI Narrative: 63-year-old female presents 2 weeks after a fall from standing, pain to her right thigh and hip. Has been able to ambulate with discomfort. Related Data Home Medications Medication Instructions Recorded Confirmed nitroglycerin 0.4 mg sublingual 0.4 mg sublingual PRN PRN 06/01/17 02/20/23 tablet (Nitrostat) naloxone 4 mg/actuation nasal 4 mg intranasal PRN PRN 09/10/19 02/20/23 spray (Narcan) nystatin 100,000 unit/mL oral 5 ml PO QID PRN PRN 09/10/19 02/20/23 suspension rolling walker with seat #1 ea 01/12/20 02/20/23 aspirin 81 mg tablet,delayed 81 mg PO DAILY 06/24/20 02/20/23 release atorvastatin 40 mg tablet 40 mg PO DAILY 06/24/20 02/20/23 cetirizine 10 mg tablet 10 mg PO DAILY 06/24/20 03/22/22 cyanocobalamin (vitamin B-12) 1,000 mcg PO DAILY 06/24/20 02/20/23 1,000 mcg tablet (Vitamin B-12) cyclobenzaprine 10 mg tablet 10 mg PO Q8H PRN PRN 06/24/20 02/20/23 dexlansoprazole 60 mg 60 mg PO DAILY 06/24/20 03/22/22 capsule,biphase delayed release (Dexilant) duloxetine 30 mg capsule,delayed 30 mg PO DAILY 06/24/20 02/20/23 release duloxetine 60 mg capsule,delayed 60 mg PO DAILY 06/24/20 02/20/23 release fluticasone propionate 50 1 spray intranasal DAILY 06/24/20 02/20/23 mcg/actuation nasal spray,suspension hydrocodone 5 mg-acetaminophen 325 1 tab PO Q8H PRN PRN 06/24/20 02/20/23 mg tablet magnesium oxide 400 mg (241.3 mg 400 mg PO TID 06/24/20 03/22/22 magnesium) tablet prednisone 10 mg tablet 5 mg PO DAILY 06/24/20 03/22/22 pyridoxine (vitamin B6) 100 mg 100 mg PO DAILY 06/24/20 02/20/23 tablet docusate sodium 250 mg capsule 250 mg PO DAILY PRN 07/16/20 02/20/23 insulin aspart U-100 100 unit/mL 2 - 20 units subcut 0800,1200,1700 11/15/20 02/20/23 (3 mL) subcutaneous pen (Novolog FlexPen U-100 Insulin aspart) metoprolol succinate 25 mg 25 mg PO DAILY 01/09/21 02/20/23 tablet,extended release 24 hr bupropion HCl 150 mg tablet,12 hr 1 tab PO BID 02/07/22 02/20/23 sustained-release lisinopril 2.5 mg tablet 2.5 mg PO DAILY 02/07/22 02/20/23 insulin glargine 100 unit/mL (3 30 unit subcut BID 02/10/22 02/20/23 mL) subcutaneous pen (Basaglar KwikPen U-100 Insulin) cholecalciferol (vitamin D3) 25 1,000 unit PO DAILY 02/20/23 02/20/23 mcg (1,000 unit) capsule (Vitamin D3) lidocaine 5 % topical patch 1 patch topical DAILY PRN #15 ea 02/20/23 (Lidoderm) loratadine 10 mg tablet 10 mg PO DAILY 02/20/23 02/20/23 magnesium citrate 100 mg capsule 100 mg PO DAILY 02/20/23 02/20/23 omeprazole 10 mg capsule,delayed 10 mg PO DAILY 02/20/23 02/20/23 release Previous Rx's Medication Instructions Recorded rolling walker with seat #1 ea 01/12/20 lidocaine 5 % topical patch 1 patch topical DAILY PRN #15 ea 02/20/23 (Lidoderm) Allergies Allergy/AdvReac Type Severity Reaction Status Date / Time quetiapine [From Seroquel] Allergy Intermediate Unverified 02/20/23 11:42 amoxicillin [From Augmentin] Allergy Unverified 02/20/23 11:42 clavulanic acid Allergy Unverified 02/20/23 11:42 [From Augmentin] Penicillins Allergy Unverified 02/20/23 11:42 Sulfa (Sulfonamide Allergy Unverified 02/20/23 11:42 Antibiotics) exenatide [From Byetta] AdvReac Intermediate diarrhea Unverified 02/20/23 11:42 metformin AdvReac Intermediate diarrhea Unverified 02/20/23 11:42 amitriptyline AdvReac made my Unverified 02/20/23 11:42 face go numb amoxicillin trihydrate AdvReac acute Unverified 02/20/23 11:42 [From Augmentin] kidney failure NSAIDS (Non-Steroidal AdvReac stage III Unverified 02/20/23 11:42 Anti-Inflamma kidney disease potassium clavulanate AdvReac acute Unverified 02/20/23 11:42 [From Augmentin] kidney failure General Stated Complaint: Orthopedic SADE: 4 Review of Systems Narrative: Review of Systems Constitutional: negative Eyes: negative ENT: negative Cardiovascular: negative Respiratory: negative Gastrointestinal: negative : negative Musculoskeletal: Hip pain Skin: negative Neurologic: negative Psych: negative PFSH All Active Problems (Updated 02/20/23 @ 13:53 by Juan Dominguez MD) Contusion of leg (Acute) Hyperglycemia (Acute) Acute adrenal insufficiency (Acute) URI (upper respiratory infection) (Acute) Headache (Acute) Urinary tract infection (Acute) Atypical chest pain (Acute) Hypomagnesemia (Acute) COVID-19 (Acute) Coronary artery disease (Chronic) Chest pain (Acute) CAD (coronary atherosclerotic disease) (Acute) 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 (Acute) Type 1 diabetes mellitus with diabetic polyneuropathy (Acute) Primary osteoarthritis of both first carpometacarpal joints (Acute 12/22/17) Hypertension (Chronic) Insomnia (Acute) GERD (gastroesophageal reflux disease) (Chronic) Chronic kidney disease (Chronic) COPD (chronic obstructive pulmonary disease) (Chronic) Mixed anxiety depressive disorder (Acute) Medical History Acute exacerbation of chronic obstructive airways disease Acute sinusitis Allergic rhinitis Anemia Benign neoplasm of peripheral nerve Benign neoplasm of peripheral nerves and autonomic nervous system, unspecified Cataracts, bilateral Chronic renal impairment associated with type 2 diabetes mellitus CKD stage 3 due to type 2 diabetes mellitus Colon polyp Depression Diabetes pt reports elevated HgbA1c. 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 No complications. Cholecystectomy Coronary Stent H/O lumpectomy Hx of tubal ligation Family History Brother Diabetes Hypertension Heart disease Stroke Obesity Chronic headaches Arthritis Brother Arthritis Chronic headaches Diabetes Heart disease Hypertension Obesity Stroke Father Heart disease Stroke Hypertension Chronic headaches Sister Diabetes Obesity Osteoporosis Daughter Migraine Obesity Brother Arthritis Diabetes Chronic headaches Hypertension Obesity Stroke Mother Asthma Arthritis Diabetes Obesity Stroke Glaucoma Social History Smoking/Tobacco Use Status: Former Tobacco Use Quit Date: 04/13/19 Pack-years: 45 Tobacco: How many years used: 45 Quit status: considering quitting Smoking risk assessment performed?: Yes Alcohol Intake: never Drug use: Never Substance use type: does not use Details: Quit smoking 6 months ago. Household members: friend(s) Housing: apartment Number of Children: 3 number of grandchildren: 14 current occupation: none What is your relationship status?: Panel score (0-1 are the most socially isolated patients): 0 What type of physical activity do you participate in: none Do you feel safe at home: Yes Do you feel safe in your relationship?: Yes Exam Narrative Exam Narrative: Physical Examination General: alert, awake, cooperative, resting comfortably, no acute distress Skin: no lesions, rashes or trauma appreciated Neuro: AAOx3, normal speech, moving all extremities Extremities: Range of motion of hip knee ankle and foot intact, soft compartments, warm well perfused extremity, sensate, no palpable deformity step-off erythema or induration Psych: Appropriate mood and affect Course Vital Signs Vital signs: Vital Signs Temperature 36.5 C 02/20/23 10:29 Pulse 75 02/20/23 10:29 Respiratory Rate 20 02/20/23 10:29 Blood Pressure 148/81 H 02/20/23 10:29 Pulse Oximetry 99 02/20/23 10:29 Temperature 36.5 C 02/20/23 10:29 Pulse 75 02/20/23 10:29 Respiratory Rate 20 02/20/23 10:29 Respiratory Effort Normal, Non-Labored 02/20/23 11:39 Blood Pressure 148/81 H 02/20/23 10:29 Pulse Oximetry 99 02/20/23 10:29 Pain Level 8 02/20/23 10:29
[2023-02-20] MEDS: Lidocaine 5% Patch 1 PATCH TP (12:00)
[2023-02-20 12:01] VITALS: BP 111/72; TEMP 36.4; O2SAT 92
[2023-02-20 14:08] VITALS: BP 98/65; PULSE 81; RESP 18; O2SAT 99
== END 2023-02-20 14:11 | disposition home or self-care (01) ==
PROVIDERS: Emergency Provider Emergency Medicine
DX: S70.12XA Contusion of left thigh, initial encounter (principal); W19.XXXA Unspecified fall, initial encounter
CPT/HCPCS: 73552; 99284; 72170; 99283

== ENCOUNTER 2023-05-19 17:26 | Emergency (ER) | payer MEDICARE, MEDICAID, SELFPAY ==
[2023-05-19] VITALS (45 sets, daily range): BP systolic 104–185; BP diastolic 60–88; PULSE 79–102; RESP 11–30; TEMP 36.4; O2SAT 96–100
--- NOTE | 2023-05-19 17:15 | RT.EKG_ITS ---
APPROVED REPORT Exam: Resting ECG Reason for Exam: chest pain Patient Location: E HR:97 bpm ECG Measurements Heart Rate 97 AXIS OR 174 P 24 QRSd 69 QRS -20 QT 349 T 33 QTc 443 Conclusion Sinus rhythm..,V-rate 60- [address] segment or T wave abnormalities to suggest occlusive DC
--- NOTE | 2023-05-19 17:30 | DI.RAD_ITS ---
Exam(s) XR CHEST 2V PA LATERAL EXAM: XR CHEST 2V PA LATERAL CLINICAL HISTORY: CP TECHNIQUE: 2D digital imaging was performed of the chest. Two images were obtained. PA and lateral views were obtained. COMPARISON: CR,XR XR CHEST 2V PA LATERAL from 02/05/2022 FINDINGS: MEDIASTINUM: Normal. HEART: Normal. PULMONARY VASCULATURE: Normal. LUNGS: Clear. PLEURAL SPACE: No pleural effusion or pneumothorax. BONE:Within normal limits for the patient's age. OTHER FINDINGS:Normal. IMPRESSION: No acute pulmonary findings. DATA REPOSITORY: RADIATION DOSE DELIVERED:
--- NOTE | 2023-05-19 17:33 | W.ED.GENAD ---
Discharge Plan Disposition Patient Disposition: Home Condition: Improving Discharge Details Clinical Impression: Hypomagnesemia, Chest pain ED Provider: Harini Fields Home Meds and New Rx's Prescriptions: Continued nystatin 100,000 unit/mL Suspension 5 ml PO QID PRN PRN naloxone [Narcan] 4 mg/actuation [place],Non-Aerosol 4 mg INTRANASAL PRN PRN (DME) rolling walker with seat Qty: 1 0RF Rx Instructions: As directed with ambulation metoprolol succinate 25 mg tablet extended release 24 hr 25 mg PO DAILY insulin aspart U-100 [Novolog FlexPen U-100 Insulin] 300 UNITS/3 ML insulin pen 2 - 20 units Sub-Q 0800,1200,1700 Rx Instructions: Dispense one pen see sliding scale bupropion HCl 150 mg tablet sustained-release 12 hr 1 tab PO BID Patient Comments: TAKE ONE TABLET BY MOUTH TWICE A DAY lisinopril 2.5 mg tablet 2.5 mg PO DAILY Patient Comments: TAKE ONE TABLET BY MOUTH EVERY DAY nitroglycerin [Nitrostat] 0.4 MG tablet, sublingual 0.4 mg Sublingual PRN PRN cyclobenzaprine 10 mg tablet 10 mg PO Q8H PRN PRN atorvastatin 40 mg tablet 40 mg PO DAILY Patient Comments: TAKE ONE TABLET BY MOUTH EVERY DAY prednisone 10 mg tablet 5 mg PO DAILY Patient Comments: No longer taking 05/19/23 MG cetirizine 10 mg tablet 10 mg PO DAILY Patient Comments: no longer taking 05/19/23 MG hydrocodone-acetaminophen 5-325 mg tablet 1 tab PO Q8H PRN PRN Patient Comments: TAKE ONE TABLET BY MOUTH EVERY 6 TO 8 HOURS NEEDED cyanocobalamin (vitamin B-12) [Vitamin B-12] 1,000 mcg tablet 1,000 mcg PO DAILY Patient Comments: no longer taking 05/19/23 MG aspirin 81 mg tablet,delayed release (DR/EC) 81 mg PO DAILY Patient Comments: TAKE ONE TABLET BY MOUTH EVERY DAY magnesium oxide 400 mg (241.3 mg magnesium) tablet 400 mg PO TID Patient Comments: No longer taking 05/19/23 MG pyridoxine (vitamin B6) 100 mg tablet 100 mg PO DAILY Patient Comments: no longer taking, insurance will not pay for 05/19/23 fluticasone propionate 50 mcg/actuation spray,suspension 1 spray INTRANASAL DAILY Patient Comments: INSTILL 2 SPRAYS NASALLY DAILY duloxetine 30 mg capsule,delayed release(DR/EC) 30 mg PO DAILY Patient Comments: TAKE ONE CAPSULE BY MOUTH EVERY DAY WITH 60MG duloxetine 60 mg capsule,delayed release(DR/EC) 60 mg PO DAILY Patient Comments: TAKE ONE CAPSULE BY MOUTH EVERY DAY dexlansoprazole [Dexilant] 60 mg capsule,biphase delayed releas 60 mg PO DAILY Patient Comments: No longer taking 05/19/23 MG docusate sodium 250 mg Capsule 250 mg PO DAILY PRN insulin glargine [Basaglar KwikPen U-100 Insulin] 100 unit/mL (3 mL) insulin pen 30 unit SUBCUT BID Patient Comments: INJECT 60 UNITS SUBCUTANEOUSLY ONCE DAILY (30 UNITS EVERY MORNING AND 30 UNITS QPM) loratadine 10 mg tablet 10 mg PO DAILY Patient Comments: not taking 05/19/23 MG cholecalciferol (vitamin D3) [Vitamin D3] 25 mcg (1,000 unit) capsule 1,000 unit PO DAILY Patient Comments: no longer taking 05/19/23 MG magnesium citrate 100 mg Capsule 100 mg PO DAILY Patient Comments: Pt states she takes 250mg every other day, unable to get smaller dose OTC. 05/19/23 MG omeprazole 10 mg Capsule,Delayed Release(Dr/Ec) 40 mg PO DAILY lidocaine [Lidoderm] 5 % adhesive patch,medicated 1 patch topical DAILY PRNQty: 15 0RF Rx Instructions: leave on most painful area for up to 12 hrs Discharge Instructions Instructions: Magnesium Oxide (By mouth), Chest Pain (ED), Hypomagnesemia (ED) Additional Instructions: As we discussed, your cardiac work-up was normal here today. However, I am concerned that magnesium was low once again. You are given supplementation here and are being sent home with 2 days worth of the vitamin. I have asked her care management team to call you to discuss assistance with payment. I also encouraged that you discuss this further with your primary care at your upcoming appointment. Please encourage hydration, encourage walking and try to reduce your stress. If you develop any new or worsening symptoms please seek care urgently once again. Otherwise, please keep your upcoming appointment with your primary care provider. Referrals: Jeny Almonte [ NON-[facility] STAFF PHYSICIAN] - Discharge Data Discharge Date/Time-TO BE ENTERED AT DEPARTURE: 05/19/23 23:21 Medical Decision Making Patient is a pleasant 63 year old female, brought in via EMS and accompanied by signifcant other, with c/c of CP that began yesterday. She states that pain has waxed/waned but no identifiable triggers or improvements. Denies cough, pain with inspiration, leg swelling. STates that pain is primarily central chest that can radiate to the top of her head and back down into her jaw. STates she took her nitro at home, had improvement but htis caused her pain to migrate into her abdomen. Denies SOB. No pain into her back. PMH signficant for CAD, DM, HTN, GERD, CKD, COPD, depression, PTSD, panic disorder. No coorelation with food, although she was concerned that this may have been GERD. No correlation with activity. Has received nitro SL and ASA. On exam, patient appears profoundly anxious, she is tearful and shaky. Lungs are clear, normal cardiac exam, abdomen benign, no LE edema. Concerned for ACS. She did not have pain with her previous cardiac events. She has had stents placed. She also looks very panicked and anxious, is requesting Ativan. Will give nitro, obtain ECG, labs, CXR. Discussed with patient who is in agreement with this plan. She not having any shortness of breath, no pleuritic pain. She was initially slightly tacky when she came in but also was very anxious, this seemed to subside quickly when talking with me and at no point was she hypoxic. I do not see indication at this time for pulmonary embolism. She is not having pain radiating to the back and does have intact distal pulses in the lower extremities I do not see indication at this time for acute dissection. Labs reviewed. No leukocytosis, stable H&H. CKD noted with no acute change. Mag is low at 1.1. She states she stopped her supplementation b/c her insurance will no longer cover this. She does not have money for OTC supplements. Will give 2g IV. FINDINGS: Lungs: Unremarkable. No consolidation. Pleural spaces: Unremarkable. No pleural effusion. No pneumothorax. Heart/Mediastinum: Unremarkable. No cardiomegaly. Bones/joints: Unremarkable. IMPRESSION: No acute findings Initial troponin WNL, waiting for second. Patient resting comfortably. Repeat troponin within normal limits. Patient resting comfortably without any recurrent symptoms. Feels much improved after her IV magnesium. Unclear if she may have been symptomatic associated with this but also concerned that some of this was anxiety driven. She is not having exertional component, no elevation in troponin x2, I do feel that she is safe to go home and she is requesting discharge with her . We will send her home with 2 magnesium supplement pills and also have her care management team reach out to her to see if we can assist in acquisition of these vitamins. We discussed her anxiety as well as this also appeared to play a signficant part of her symtpoms. Advised close f/u with PCP. Strict return precautions discussed. All of her questions and concerns were addresse, she is in agreement with this plan. HPI General Date/Time Provider Initiated Documentation: 05/19/23 17:33. Limitations to Documentation: no limitations. Information obtained by: patient, family, EMS, RN notes reviewed and old records reviewed. History of Present Illness 63 year old F presents to the emergency department with the chief complaint of chest pain, described as severe (no pain currently but can be severe when the pain gets worse) and similar to prior episodes, Quality is described as aching, and is localized to the chest. Patient reports no radiation. Patient started experiencing this day(s) and it has been intermittent. No relieving factors improve symptom(s), No exacerbating factors reported . Patient notes chest pain and malaise; denies cough, fever/chills, headaches, loss of appetite, rash, shortness of breath and syncope. Patient did receive the following treatments prior to arrival, Aspirin and other (nitro) Related Data Home Medications Medication Instructions Recorded Confirmed nitroglycerin 0.4 mg sublingual 0.4 mg sublingual PRN PRN 06/01/17 05/19/23 tablet (Nitrostat) naloxone 4 mg/actuation nasal 4 mg intranasal PRN PRN 09/10/19 05/19/23 spray (Narcan) nystatin 100,000 unit/mL oral 5 ml PO QID PRN PRN 09/10/19 05/19/23 suspension rolling walker with seat #1 ea 01/12/20 02/20/23 aspirin 81 mg tablet,delayed 81 mg PO DAILY 06/24/20 05/19/23 release atorvastatin 40 mg tablet 40 mg PO DAILY 06/24/20 05/19/23 cetirizine 10 mg tablet 10 mg PO DAILY 06/24/20 03/22/22 cyanocobalamin (vitamin B-12) 1,000 mcg PO DAILY 06/24/20 02/20/23 1,000 mcg tablet (Vitamin B-12) cyclobenzaprine 10 mg tablet 10 mg PO Q8H PRN PRN 06/24/20 05/19/23 dexlansoprazole 60 mg 60 mg PO DAILY 06/24/20 03/22/22 capsule,biphase delayed release (Dexilant) duloxetine 30 mg capsule,delayed 30 mg PO DAILY 06/24/20 05/19/23 release duloxetine 60 mg capsule,delayed 60 mg PO DAILY 06/24/20 05/19/23 release fluticasone propionate 50 1 spray intranasal DAILY 06/24/20 05/19/23 mcg/actuation nasal spray,suspension hydrocodone 5 mg-acetaminophen 325 1 tab PO Q8H PRN PRN 06/24/20 05/19/23 mg tablet magnesium oxide 400 mg (241.3 mg 400 mg PO TID 06/24/20 03/22/22 magnesium) tablet prednisone 10 mg tablet 5 mg PO DAILY 06/24/20 03/22/22 pyridoxine (vitamin B6) 100 mg 100 mg PO DAILY 06/24/20 02/20/23 tablet docusate sodium 250 mg capsule 250 mg PO DAILY PRN 07/16/20 05/19/23 insulin aspart U-100 100 unit/mL 2 - 20 units subcut 0800,1200,1700 11/15/20 05/19/23 (3 mL) subcutaneous pen (Novolog FlexPen U-100 Insulin aspart) metoprolol succinate 25 mg 25 mg PO DAILY 01/09/21 05/19/23 tablet,extended release 24 hr bupropion HCl 150 mg tablet,12 hr 1 tab PO BID 02/07/22 05/19/23 sustained-release lisinopril 2.5 mg tablet 2.5 mg PO DAILY 02/07/22 05/19/23 insulin glargine 100 unit/mL (3 30 unit subcut BID 02/10/22 05/19/23 mL) subcutaneous pen (Basaglar KwikPen U-100 Insulin) cholecalciferol (vitamin D3) 25 1,000 unit PO DAILY 02/20/23 02/20/23 mcg (1,000 unit) capsule (Vitamin D3) lidocaine 5 % topical patch 1 patch topical DAILY PRN #15 ea 02/20/23 05/19/23 (Lidoderm) loratadine 10 mg tablet 10 mg PO DAILY 02/20/23 02/20/23 magnesium citrate 100 mg capsule 100 mg PO DAILY 02/20/23 05/19/23 omeprazole 10 mg capsule,delayed 40 mg PO DAILY 02/20/23 05/19/23 release Previous Rx's Medication Instructions Recorded rolling walker with seat #1 01/12/20 lidocaine 5 % topical patch 1 patch topical DAILY PRN #15 ea 02/20/23 (Lidoderm) Allergies Allergy/AdvReac Type Severity Reaction Status Date / Time quetiapine [From Seroquel] Allergy Intermediate Unverified 05/19/23 20:43 amoxicillin [From Augmentin] Allergy Unverified 05/19/23 20:43 clavulanic acid Allergy Unverified 05/19/23 20:43 [From Augmentin] Penicillins Allergy Unverified 05/19/23 20:43 Sulfa (Sulfonamide Allergy Unverified 05/19/23 20:43 Antibiotics) exenatide [From [place]] AdvReac Intermediate diarrhea Unverified 05/19/23 20:43 metformin AdvReac Intermediate diarrhea Unverified 05/19/23 20:43 amitriptyline AdvReac made my Unverified 05/19/23 20:43 face go numb amoxicillin trihydrate AdvReac acute Unverified 05/19/23 20:43 [From Augmentin] kidney failure NSAIDS (Non-Steroidal AdvReac stage III Unverified 05/19/23 20:43 Anti-Inflamma kidney disease potassium clavulanate AdvReac acute Unverified 05/19/23 20:43 [From Augmentin] kidney failure General Stated Complaint: Chest Pain SADE: 3 Review of Systems Constitutional Constitutional: Reports as per HPI, Denies chills, Denies fever(s), Denies headache(s), Denies lethargy and Denies poor appetite Eyes Eyes: Denies change in vision ENT Ears, Nose, Mouth, and Throat: Denies dizziness and Denies headache(s) Cardiovascular Cardiovascular: Reports as per HPI, Denies dyspnea and Denies dyspnea on exertion Respiratory Respiratory: Reports as per HPI, Denies chest congestion, Denies cough, Denies pain on inspiration, Denies dyspnea and Denies dyspnea on exertion Gastrointestinal Gastrointestinal: Reports as per HPI, Denies abdominal pain, Denies diarrhea, Denies nausea and Denies vomiting Musculoskeletal Musculoskeletal: Reports as per HPI and Denies back pain Integumentary/Breasts Skin/Breast: Reports as per HPI and Denies rash Neurologic Neurologic: Reports as per HPI, Denies dizziness and Denies headache(s) PFSH All Active Problems (Updated 05/19/23 @ 22:52 by WHIT Alcala) Hypomagnesemia (Acute) Chest pain (Acute) Hyperglycemia (Acute) Acute adrenal insufficiency (Acute) URI (upper respiratory infection) (Acute) Headache (Acute) Urinary tract infection (Acute) Atypical chest pain (Acute) Hypomagnesemia (Acute) COVID-19 (Acute) Coronary artery disease (Chronic) Chest pain (Acute) CAD (coronary atherosclerotic disease) (Acute) 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 (Acute) Type 1 diabetes mellitus with diabetic polyneuropathy (Acute) Primary osteoarthritis of both first carpometacarpal joints (Acute 12/22/17) Hypertension (Chronic) Insomnia (Acute) GERD (gastroesophageal reflux disease) (Chronic) Chronic kidney disease (Chronic) COPD (chronic obstructive pulmonary disease) (Chronic) Mixed anxiety depressive disorder (Acute) Medical History Acute exacerbation of chronic obstructive airways disease Acute sinusitis Allergic rhinitis Anemia Benign neoplasm of peripheral nerve Benign neoplasm of peripheral nerves and autonomic nervous system, unspecified Cataracts, bilateral Chronic renal impairment associated with type 2 diabetes mellitus CKD stage 3 due to type 2 diabetes mellitus Colon polyp Depression Diabetes pt reports elevated HgbA1c. 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 No complications. Cholecystectomy Coronary Stent H/O lumpectomy Hx of tubal ligation Family History Brother Diabetes Hypertension Heart disease Stroke Obesity Chronic headaches Arthritis Brother Arthritis Chronic headaches Diabetes Heart disease Hypertension Obesity Stroke Father Heart disease Stroke Hypertension Chronic headaches Sister Diabetes Obesity Osteoporosis Daughter Migraine Obesity Brother Arthritis Diabetes Chronic headaches Hypertension Obesity Stroke Mother Asthma Arthritis Diabetes Obesity Stroke Glaucoma Social History Smoking/Tobacco Use Status: Former Tobacco Use Quit Date: 04/13/19 Pack-years: 45 Tobacco: How many years used: 45 Quit status: considering quitting Smoking risk assessment performed?: Yes Alcohol Intake: never Drug use: Never Substance use type: does not use Details: Quit smoking 6 months ago. Household members: friend(s) Housing: apartment Number of Children: 3 number of grandchildren: 14 current occupation: none What is your relationship status?: Panel score (0-1 are the most socially isolated patients): 0 What type of physical activity do you participate in: none Do you feel safe at home: Yes Do you feel safe in your relationship?: Yes Exam Const General: cooperative, healthy appearing, comfortable, no acute distress, well developed and anxious Nutritional Appearance: well nourished and overweight Orientation: alert, awake and oriented x3 HENMT Head: normal to inspection Ears: hearing grossly normal bilaterally Mouth: moist mucous membranes Chest Chest: normal inspection of the chest, normal palpation of entire chest wall and no crepitus Resp Effort & Inspection: normal respiratory effort, able to speak in complete sentences and no respiratory distress Auscultation: clear to auscultation bilaterally, no rales, no rhonchi and no wheezes Cardio Rate: regular rate Rhythm: regular rhythm Heart Sounds: S1 normal and S2 normal GI Inspection: normal to inspection, no edema and non-distended Palpation: soft, no hepatosplenomegaly, not firm, no guarding, not rigid and nontender Auscultation: normal bowel sounds Back/Spine/Pelvis Back: no CVA tenderness Thoracic/Lumbar Spine: thoracic and lumbar spine normal to inspection Skin General skin exam: no rashes or lesions noted Trauma: no lacerations or abrasions Neuro General: patient alert, patient awake and patient oriented x3 Cognition: normal cognition Speech: speech normal Gait: normal gait Extrem General: normal to inspection, capillary refill normal, no pedal edema, no calf tenderness and normal gait Psych Appearance: grossly normal and well kempt Mental Status: mental status grossly normal Speech and Movement: speech and movement normal Mood: anxious mood Affect: sad and anxious affect Course Vital Signs Vital signs: Vital Signs Temperature 36.4 C L 05/19/23 17:28 Pulse 102 H 05/19/23 17:28 Respiratory Rate 30 H 05/19/23 17:28 Blood Pressure 185/79 H 05/19/23 17:28 Pulse Oximetry 96 05/19/23 17:28 Temperature 36.4 C L 05/19/23 17:28 Temperature Source Tympanic 05/19/23 17:28 Pulse 102 H 05/19/23 17:28 Respiratory Rate 30 H 05/19/23 17:28 Blood Pressure 185/79 H 05/19/23 17:28 Blood Pressure Position Sitting 05/19/23 17:28 Pulse Oximetry 96 05/19/23 17:28 Oxygen Delivery Method Room Air 05/19/23 17:28 Oxygen Flow Rate 0 05/19/23 17:28 Pain Level 0 05/19/23 17:28
[2023-05-19] MEDS: LORazepam 1 MG TAB PO (18:49)
[2023-05-19] MEDS: nitroGLYcerin 0.4 MG TAB SL (18:49)
[2023-05-19 19:15] LABS: Absolute Basophil Count 0.07 10^3/uL (0.0-0.2); Absolute Eosinophil Count 0.12 10^3/uL (0.0-0.7); Absolute Monocyte Count 0.51 10^3/uL (0.1-0.8); Absolute Neutrophil Count 6.92 10^3/uL (1.2-6.7); Basophils % 0.7; Eosinophils % 1.2; HCT 37.5 % (36.0-46.0); HGB 12.8 g/dL (11.2-15.7); Lymphocytes % 21.4; MCH 30.4 pg (27.0-33.0); MCHC 34.1 % (32.0-36.0); MCV 89 fL (80-95); MPV 9.8 fL (8.0-11.0); Monocytes % 5.2; Neutrophils % 70.5; Platelet Count 295 10^3/uL (130-400); RBC 4.21 10^6/uL (3.93-5.22); RDW-SD 44.9 fL; WBC 9.82 10^3/uL (4.4-10.8)
[2023-05-19] MEDS: Acetaminophen 500 MG TAB 1000 MG PO (19:19)
[2023-05-19 19:30] LABS: ALT 17 U/L (14-59); AST 14 U/L (15-37); Albumin 3.5 g/dL (3.4-5.0); Alkaline Phosphatase 93 U/L (46-116); Anion Gap 13.6 mmol/L (3-11); BUN 49 mg/dL (7-18); Bilirubin, Total 0.5 mg/dL (0.2-1.0); CO2 22.4 mmol/L (21.0-32.0); CREATININE 1.9 mg/dL (0.55-1.02); Chloride 102 mmol/L (98-107); Glucose 209 mg/dL (74-106); Magnesium 1.1 mg/dL (1.8-2.4); Potassium 4.1 mmol/L (3.5-5.1); Sodium 138 mmol/L (136-145); Total Protein 7.8 g/dL (6.4-8.2); Troponin I < 50 ng/L (<or=60)
[2023-05-19] MEDS: MAGNESIUM SULFATE 2 GM/50 ML BAG IVPB (19:47)
--- NOTE | 2023-05-19 20:14 | DI.VRAD_ITS ---
PROCEDURE INFORMATION: Exam: XR Chest Exam date and time: 05/19/2023 7:36 PM Age: 63 years old Clinical indication: Other: Chest pain TECHNIQUE: Imaging protocol: Radiologic exam of the chest. Views: 2 views. COMPARISON: CR XR CHEST 2V PA LATERAL 02/05/2022 9:37 PM FINDINGS: Lungs: Unremarkable. No consolidation. Pleural spaces: Unremarkable. No pleural effusion. No pneumothorax. Heart/Mediastinum: Unremarkable. No cardiomegaly. Bones/joints: Unremarkable. IMPRESSION: No acute findings. Dictated and Authenticated by: Gene Leong MD. Ordering:NATALYA Schuler MD
[2023-05-19 22:24] LABS: Troponin I < 50 ng/L (<or=60)
[2023-05-19] MEDS: Magnesium Oxide 400 MG TAB 800 MG PO (23:19)
--- NOTE | 2023-05-20 04:17 | NUR.NOTE ---
Pt placed on care management to assist with cost of medications and PCP is unknown. Establishing PCP Nursing Note:
== END 2023-05-19 23:21 | disposition home or self-care (01) ==
PROVIDERS: Emergency Provider Physician Assistant
DX: R10.13 Epigastric pain (principal); E83.42 Hypomagnesemia; E10.22 Type 1 diabetes mellitus with diabetic chronic kidney disease; I12.9 Hypertensive chronic kidney disease with stage 1 through stage 4 chronic kidney disease, or unspecified chronic kidney disease; N18.30 Chronic kidney disease, stage 3 unspecified; E10.3599 Type 1 diabetes mellitus with proliferative diabetic 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 edema, unspecified eye; E10.42 Type 1 diabetes mellitus with diabetic polyneuropathy; I25.10 Atherosclerotic heart disease of native coronary artery without angina pectoris; K21.9 Gastro-esophageal reflux disease without esophagitis; J44.9 Chronic obstructive pulmonary disease, unspecified; Z95.5 Presence of coronary angioplasty implant and graft; Z87.891 Personal history of nicotine dependence; Z79.899 Other long term (current) drug therapy
CPT/HCPCS: 36415; 80053; 93005; 96365; 96366; 99284; 71046; 83735; 84484; 85025; 93010; 99283

== ENCOUNTER 2023-06-25 13:11 | Emergency (ER) | payer MEDICARE, MEDICAID, SELFPAY ==
[2023-06-25] VITALS (117 sets, daily range): BP systolic 100–168; BP diastolic 38–104; PULSE 81–95; RESP 11–35; TEMP 36.8–37.1; O2SAT 77–100
--- NOTE | 2023-06-25 13:00 | RT.EKG_ITS ---
APPROVED REPORT Exam: Resting ECG Reason for Exam: chest pain Patient Location: E HR:93 bpm ECG Measurements Heart Rate 93 AXIS PA 208 P 105 QRSd 73 QRS -18 QT 358 T 73 QTc 445 Conclusion Sinus rhythm. rate 93 normal axis There are no significant changes compared to prior EKG performed on 02/06/2022 at 18:49.
--- NOTE | 2023-06-25 13:38 | DI.CT_ITS ---
Exam(s) CT CHEST PE CTA EXAM: CT CHEST PE CTA CLINICAL HISTORY: chest pain. TECHNIQUE: Imaging Protocol: Axial CT angiography was performed with multi-slice acquisition and mu lti-planar reconstructions as well as axial, coronal and sagittal MIP reconstructions. CONTRAST MATERIAL: Intravenous: Omnipaque 350 Contrast volume:100 ml COMPARISON: CT CT ABDOMEN PELVIS WO from 02/05/2022 CR,XR XR CHEST 2V PA LATERAL from 02/05/2022 ECG ED EKG from 05/19/2023 CR,XR XR CHEST 2V PA LATERAL from 05/19/2023 FINDINGS: Pulmonary Arteries: No evidence of filling defect to suggest pulmonary emboli. Tracheobronchial tree: Patent where visualized. Mediastinum and Gisela: No dominant adenopathy or fluid collection. Pulmonary parenchyma: Limited evaluation due to expiratory and dependent changes. No consolidation o r dominant measurable mass. Interstitial changes present. Pleura: No effusion or pneumothorax. Heart: The heart is not dilated. Severe coronary artery calcifications are seen. Aorta: Thoracic aorta non-dilated. No aneurysm. No dissection. Upper abdomen: Unremarkable. Bones: Unremarkable for age. Tubes, Catheters, and Lines: None IMPRESSION: No evidence of pulmonary embolism. Interstitial changes, chronic. No acute infiltrate. RADIATION DOSE DELIVERED: Total DLP DATA REPOSITORY: All CT scans at this facility are submitted to the National Radiology Data Registry (NRDR) Dose Index Registry (DIR) with the [employer] (A[employer]). RADIATION OPTIMIZATION: All CT scans at this facility use at least one of these dose optimization te chniques: automated exposure control; mA and/or kV adjustment per patient size (includes targeted exa ms where dose is matched to clinical indication); or iterative reconstruction.
[2023-06-25 13:57] LABS: Abs Immature Grans 0.06 10^3/uL (0.0-0.06); Absolute Eosinophil Count 0.37 10^3/uL (0.0-0.7); Absolute Lymphocyte Count 2.32 10^3/uL (1.2-3.4); Absolute Monocyte Count 0.54 10^3/uL (0.1-0.8); Absolute Neutrophil Count 5.58 10^3/uL (1.2-6.7); Basophils % 1.1; Eosinophils % 4.1; HCT 35.9 % (36.0-46.0); HGB 11.8 g/dL (11.2-15.7); Immature Grans % 0.7; Lymphocytes % 25.9; MCH 29.9 pg (27.0-33.0); MCHC 32.9 % (32.0-36.0); MCV 91 fL (80-95); MPV 9.6 fL (8.0-11.0); Neutrophils % 62.2; Platelet Count 300 10^3/uL (130-400); RBC 3.95 10^6/uL (3.93-5.22); RDW 14.2 % (11.7-14.6); RDW-SD 47.5 fL; WBC 8.97 10^3/uL (4.4-10.8)
--- NOTE | 2023-06-25 14:00 | RT.EKG_ITS ---
APPROVED REPORT Exam: Resting ECG Reason for Exam: chest pain Patient Location: E HR:83 bpm ECG Measurements Heart Rate 83 AXIS AL 195 P 86 QRSd 78 QRS 1 QT 384 T 32 QTc 453 Conclusion Sinus rhythm RATE 83 NORMAL AXIS
[2023-06-25] MEDS: nitroGLYcerin 0.4 MG TAB SL (14:14)
[2023-06-25 14:21] LABS: ALT 24 U/L (14-59); AST 21 U/L (15-37); Albumin 3.4 g/dL (3.4-5.0); Alkaline Phosphatase 85 U/L (46-116); Anion Gap 9.8 mmol/L (3-11); BUN 62 mg/dL (7-18); Bilirubin, Total 0.3 mg/dL (0.2-1.0); CO2 24.2 mmol/L (21.0-32.0); CREATININE 1.7 mg/dL (0.55-1.02); Calcium 9.4 mg/dL (8.5-10.1); Chloride 106 mmol/L (98-107); Estimated GFR 33.49 (mL/min/1.73m2); Glucose 103 mg/dL (74-106); Magnesium 1.6 mg/dL (1.8-2.4); Potassium 4.5 mmol/L (3.5-5.1); Sodium 140 mmol/L (136-145); Total Protein 7.1 g/dL (6.4-8.2); Troponin I < 50 ng/L (<or=60)
--- NOTE | 2023-06-25 14:32 | ED.GENADUL_ITS ---
Discharge Plan Disposition Patient Disposition: Transfer-Acute Inpatient Care Specific Acute Inpt Facility: [facility] [place] Condition: Stable Discharge Details Clinical Impression: Chest pain Primary Care Provider: Unknown,Unknown ED Provider: Karrie Landin Home Meds and New Rx's Prescriptions: No Action nystatin 100,000 unit/mL Suspension 5 ml PO QID PRN PRN naloxone [Narcan] 4 mg/actuation Lena,Non-Aerosol 4 mg INTRANASAL PRN PRN (DME) rolling walker with seat Qty: 1 0RF Rx Instructions: As directed with ambulation metoprolol succinate 25 mg tablet extended release 24 hr 25 mg PO DAILY insulin aspart U-100 [Novolog FlexPen U-100 Insulin] 300 UNITS/3 ML insulin pen 2 - 20 units Sub-Q 0800,1200,1700 Rx Instructions: Dispense one pen see sliding scale bupropion HCl 150 mg tablet sustained-release 12 hr 1 tab PO BID Patient Comments: TAKE ONE TABLET BY MOUTH TWICE A DAY lisinopril 2.5 mg tablet 2.5 mg PO DAILY Patient Comments: TAKE ONE TABLET BY MOUTH EVERY DAY lorazepam 0.5 mg tablet 0.5 mg PO BID PRN Patient Comments: TAKE ONE TABLET BY MOUTH EVERY 6 HOURS NEEDED FOR ANXIETY nitroglycerin [Nitrostat] 0.4 MG tablet, sublingual 0.4 mg Sublingual PRN PRN cyclobenzaprine 10 mg tablet 10 mg PO Q8H PRN PRN atorvastatin 40 mg tablet 40 mg PO DAILY Patient Comments: TAKE ONE TABLET BY MOUTH EVERY DAY cetirizine 10 mg tablet 10 mg PO DAILY Patient Comments: no longer taking 05/19/23 MG hydrocodone-acetaminophen 5-325 mg tablet 1 tab PO Q8H PRN PRN Patient Comments: TAKE ONE TABLET BY MOUTH EVERY 6 TO 8 HOURS NEEDED cyanocobalamin (vitamin B-12) [Vitamin B-12] 1,000 mcg tablet 1,000 mcg PO DAILY Patient Comments: no longer taking 05/19/23 MG aspirin 81 mg tablet,delayed release (DR/EC) 81 mg PO DAILY Patient Comments: TAKE ONE TABLET BY MOUTH EVERY DAY pyridoxine (vitamin B6) 100 mg tablet 100 mg PO DAILY Patient Comments: no longer taking, insurance will not pay for 05/19/23 fluticasone propionate 50 mcg/actuation spray,suspension 1 spray INTRANASAL DAILY Patient Comments: INSTILL 2 SPRAYS NASALLY DAILY duloxetine 30 mg capsule,delayed release(DR/EC) 30 mg PO DAILY Patient Comments: TAKE ONE CAPSULE BY MOUTH EVERY DAY WITH 60MG duloxetine 60 mg capsule,delayed release(DR/EC) 60 mg PO DAILY Patient Comments: TAKE ONE CAPSULE BY MOUTH EVERY DAY dexlansoprazole [Dexilant] 60 mg capsule,biphase delayed releas 60 mg PO DAILY Patient Comments: No longer taking 05/19/23 MG docusate sodium 250 mg Capsule 250 mg PO DAILY PRN insulin glargine [Basaglar KwikPen U-100 Insulin] 100 unit/mL (3 mL) insulin pen 30 unit SUBCUT BID Patient Comments: INJECT 60 UNITS SUBCUTANEOUSLY ONCE DAILY (30 UNITS EVERY MORNING AND 30 UNITS QPM) loratadine 10 mg tablet 10 mg PO DAILY Patient Comments: not taking 05/19/23 MG cholecalciferol (vitamin D3) [Vitamin D3] 25 mcg (1,000 unit) capsule 1,000 unit PO DAILY Patient Comments: no longer taking 05/19/23 MG magnesium citrate 100 mg Capsule 100 mg PO DAILY lidocaine [Lidoderm] 5 % adhesive patch,medicated 1 patch topical DAILY PRNQty: 15 0RF Rx Instructions: leave on most painful area for up to 12 hrs Discharge Data Discharge Date/Time-TO BE ENTERED AT DEPARTURE: 06/25/23 23:31 Medical Decision Making <WHIT Humphries - Last Filed: 06/26/23 18:26> This 63-year-old female with history of diabetes, hypertension, hyperlipidemia, coronary artery disease presents with report of chest pain unrelieved with nitroglycerin. Has received nitroglycerin x5. Patient is currently pain-free. She received 324 of aspirin via EMS. Her EKG does not show acute ischemia or injury, her CTA does not show evidence of pulmonary embolism or thoracic pathology, her vitals are stable including her blood pressure at this time. Case discussed with Naomie wood, cardiology at [facility], recommendation for catheterization for unstable angina Heparin bolus and infusion for ACS protocol initiated Pending repeat troponin, [facility] [place] would like to be notified regarding repeat troponin and EKG, patient has been placed on list for transfer and start with states she will likely have a bed later today. Care will be transitioned to Karrie Landin nurse practitioner pending repeat troponin, EKG, and cardiology at [facility] [place] notification regarding troponin and EKG As she is pain-free no additional nitroglycerin was initiated at this time, blood pressure stable, pain-free at 1545 Patient does have insulin-dependent diabetes and took her long-acting insulin last evening, her blood sugar has decreased to 83, and she has not had anything by mouth today, as she is n.p.o. at this time will order D5 NS with glucose checks every hour <Karrie Landin, MAKE UP ARTIST - Last Filed: 06/25/23 19:19> This 63-year-old female with history of diabetes, hypertension, hyperlipidemia, coronary artery disease presents with report of chest pain unrelieved with nitroglycerin. Has received nitroglycerin x5. Patient is currently pain-free. She received 324 of aspirin via EMS. Her EKG does not show acute ischemia or injury, her CTA does not show evidence of pulmonary embolism or thoracic pathology, her vitals are stable including her blood pressure at this time. Case discussed with Naomie wood, cardiology at [facility], recommendation for catheterization for unstable angina Heparin bolus and infusion for ACS protocol initiated Pending repeat troponin, [facility] [place] would like to be notified regarding repeat t roponin and EKG, patient has been placed on list for transfer and start with states she will likely have a bed later today. Care will be transitioned to Karrie Landin nurse practitioner pending repeat troponin, EKG, and cardiology at [facility] [place] notification regarding troponin and EKG As she is pain-free no additional nitroglycerin was initiated at this time, blood pressure stable, pain-free at 1545 Patient does have insulin-dependent diabetes and took her long-acting insulin last evening, her blood sugar has decreased to 83, and she has not had anything by mouth today, as she is n.p.o. at this time will order D5 NS with glucose checks every hour report and care of patient received from Tea SHERMAN. patient remains on nurse monitoring and hemodynamic monitoring while awaiting bed acceptance. at 1625 patient reports onset of substernal chest pain while lying quietly on the stretcher. she is given nitroglycerin 0.4 mg sl with instant relief of symptoms. she tells me this is how her chest pain has been all day. she is also provided IV protonix and GI cocktail at this time. also will place nitroglycerin ointment to chest wall. repeat troponin and EKG remain unremarkable with no acute st segment changes and negative troponin. will continue to be monitored while awaiting transport. transfer center updated on labs, and reports of chest pain with nitro relief. Medical Records Medical records reviewed: Yes I reviewed the patient's medical records. HPI <WHIT Humphries - Last Filed: 06/26/23 18:26> General Date/Time Provider Initiated Documentation: 06/25/23 13:11 . HPI Narrative: This 63-year-old female with history of pernicious anemia, chronic kidney disease, COPD, insulin-dependent diabetes PTSD presents with chest pain that started about 930 this morning. States it was a tightness with substernal pain with radiation to her right neck and into her back. She had similar presentation with a TN in 2005. She had a stent placed at that time. She had a similar episode in 2006 and had an additional catheterization. She denies any cough, fever, chills, shortness of breath. She has had some intermittent diaphoresis. She denies any abdominal pain. Related Data Home Medications Medication Instructions Recorded Confirmed nitroglycerin 0.4 mg sublingual 0.4 mg sublingual PRN PRN 06/01/17 06/25/23 tablet (Nitrostat) naloxone 4 mg/actuation nasal 4 mg intranasal PRN PRN 09/10/19 06/25/23 spray (Narcan) nystatin 100,000 unit/mL oral 5 ml PO QID PRN PRN 09/10/19 05/19/23 suspension rolling walker with seat #1 ea 01/12/20 02/20/23 aspirin 81 mg tablet,delayed 81 mg PO DAILY 06/24/20 06/25/23 release atorvastatin 40 mg tablet 40 mg PO DAILY 06/24/20 06/25/23 cetirizine 10 mg tablet 10 mg PO DAILY 06/24/20 06/25/23 cyanocobalamin (vitamin B-12) 1,000 mcg PO DAILY 06/24/20 06/25/23 1,000 mcg tablet (Vitamin B-12) cyclobenzaprine 10 mg tablet 10 mg PO Q8H PRN PRN 06/24/20 06/25/23 dexlansoprazole 60 mg 60 mg PO DAILY 06/24/20 06/25/23 capsule,biphase delayed release (Dexilant) duloxetine 30 mg capsule,delayed 30 mg PO DAILY 06/24/20 06/25/23 release duloxetine 60 mg capsule,delayed 60 mg PO DAILY 06/24/20 06/25/23 release fluticasone propionate 50 1 spray intranasal DAILY 06/24/20 06/25/23 mcg/actuation nasal spray,suspension hydrocodone 5 mg-acetaminophen 325 1 tab PO Q8H PRN PRN 06/24/20 06/25/23 mg tablet pyridoxine (vitamin B6) 100 mg 100 mg PO DAILY 06/24/20 06/25/23 tablet docusate sodium 250 mg capsule 250 mg PO DAILY PRN 07/16/20 06/25/23 insulin aspart U-100 100 unit/mL 2 - 20 units subcut 0800,1200,1700 11/15/20 06/25/23 (3 mL) subcutaneous pen (Novolog FlexPen U-100 Insulin aspart) metoprolol succinate 25 mg 25 mg PO DAILY 01/09/21 06/25/23 tablet,extended release 24 hr bupropion HCl 150 mg tablet,12 hr 1 tab PO BID 02/07/22 06/25/23 sustained-release lisinopril 2.5 mg tablet 2.5 mg PO DAILY 02/07/22 06/25/23 insulin glargine 100 unit/mL (3 30 unit subcut BID 02/10/22 06/25/23 mL) subcutaneous pen (Basaglar KwikPen U-100 Insulin) cholecalciferol (vitamin D3) 25 1,000 unit PO DAILY 02/20/23 06/25/23 mcg (1,000 unit) capsule (Vitamin D3) lidocaine 5 % topical patch 1 patch topical DAILY PRN #15 ea 02/20/23 06/25/23 (Lidoderm) loratadine 10 mg tablet 10 mg PO DAILY 02/20/23 06/25/23 magnesium citrate 100 mg capsule 100 mg PO DAILY 02/20/23 06/25/23 lorazepam 0.5 mg tablet 0.5 mg PO BID PRN 06/25/23 06/25/23 Previous Rx's Medication Instructions Recorded rolling walker with seat #1 ea 01/12/20 lidocaine 5 % topical patch 1 patch topical DAILY PRN #15 ea 02/20/23 (Lidoderm) Allergies Allergy/AdvReac Type Severity Reaction Status Date / Time quetiapine [From Seroquel] Allergy Intermediate Unverified 05/19/23 20:43 amoxicillin [From Augmentin] Allergy Unverified 05/19/23 20:43 clavulanic acid Allergy Unverified 05/19/23 20:43 [From Augmentin] Penicillins Allergy Unverified 05/19/23 20:43 Sulfa (Sulfonamide Allergy Unverified 05/19/23 20:43 Antibiotics) exenatide [From Byetta] AdvReac Intermediate diarrhea Unverified 05/19/23 20:43 metformin AdvReac Intermediate diarrhea Unverified 05/19/23 20:43 amitriptyline AdvReac made my Unverified 05/19/23 20:43 face go numb amoxicillin trihydrate AdvReac acute Unverified 05/19/23 20:43 [From Augmentin] kidney failure NSAIDS (Non-Steroidal AdvReac stage III Unverified 05/19/23 20:43 Anti-Inflamma kidney disease potassium clavulanate AdvReac acute Unverified 05/19/23 20:43 [From Augmentin] kidney failure General Stated Complaint: Chest Pain SADE: 3 PFSH <WHIT Humphries - Last Filed: 06/26/23 18:26> All Active Problems (Updated 06/25/23 @ 19:19 by Karrie Landin NP) Hyperglycemia (Acute) Acute adrenal insufficiency (Acute) URI (upper respiratory infection) (Acute) Headache (Acute) Urinary tract infection (Acute) Atypical chest pain (Acute) Hypomagnesemia (Acute) COVID-19 (Acute) Coronary artery disease (Chronic) Chest pain (Acute) CAD (coronary atherosclerotic disease) (Acute) 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 (Acute) Type 1 diabetes mellitus with diabetic polyneuropathy (Acute) Primary osteoarthritis of both first carpometacarpal joints (Acute 12/22/17) Hypertension (Chronic) Insomnia (Acute) GERD (gastroesophageal reflux disease) (Chronic) Chronic kidney disease (Chronic) COPD (chronic obstructive pulmonary disease) (Chronic) Mixed anxiety depressive disorder (Acute) Medical History Acute exacerbation of chronic obstructive airways disease Acute sinusitis Allergic rhinitis Anemia Benign neoplasm of peripheral nerve Benign neoplasm of peripheral nerves and autonomic nervous system, unspecified Cataracts, bilateral Chronic renal impairment associated with type 2 diabetes mellitus CKD stage 3 due to type 2 diabetes mellitus Colon polyp Depression Diabetes pt reports elevated HgbA1c. 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 No complications. Coronary Stent Cholecystectomy Appendectomy Family History Brother Diabetes Hypertension Heart disease Stroke Obesity Chronic headaches Arthritis Brother Arthritis Chronic headaches Diabetes Heart disease Hypertension Obesity Stroke Father Heart disease Stroke Hypertension Chronic headaches Sister Diabetes Obesity Osteoporosis Daughter Migraine Obesity Brother Arthritis Diabetes Chronic headaches Hypertension Obesity Stroke Mother Asthma Arthritis Diabetes Obesity Stroke Glaucoma Social History Smoking/Tobacco Use Status: Former Tobacco Use Quit Date: 04/13/19 Pack-years: 45 Tobacco: How many years used: 45 Quit status: considering quitting Smoking risk assessment performed?: Yes Alcohol Intake: never Drug use: Never Substance use type: does not use Details: Quit smoking 6 months ago. Household members: friend(s) Housing: apartment Number of Children: 3 number of grandchildren: 14 current occupation: none What is your relationship status?: Panel score (0-1 are the most socially isolated patients): 0 What type of physical activity do you participate in: none Do you feel safe at home: Yes Do you feel safe in your relationship?: Yes Course <WHIT Humphries - Last Filed: 06/26/23 18:26> Vital Signs Vital signs: Vital Signs Temperature 36.8 C 06/25/23 13:14 Pulse 95 H 06/25/23 13:14 Respiratory Rate 15 06/25/23 13:14 Blood Pressure 132/77 06/25/23 13:14 Pulse Oximetry 99 06/25/23 13:14 Temperature 36.8 C 06/25/23 13:14 Temperature Source Oral 06/25/23 13:14 Pulse 85 06/25/23 14:16 Pulse 89 06/25/23 14:30 Respiratory Rate 15 06/25/23 14:30 Respiratory Effort Normal 06/25/23 13:20 Respiratory Depth Normal 06/25/23 13:20 Respiratory Pattern Normal 06/25/23 13:20 Blood Pressure 168/70 H 06/25/23 14:16 Blood Pressure Mean 104 06/25/23 14:16 Blood Pressure Position Sitting 06/25/23 13:14 Pulse Oximetry 97 06/25/23 14:30 Oxygen Delivery Method Room Air 06/25/23 13:14 Oxygen Flow Rate 0 06/25/23 13:14 Pain Level 4 06/25/23 14:14 Lab/Test Results Lab/Test Results: Laboratory Tests Range/Units 06/25/23 13:50 WBC (4.4-10.8) 10^3/uL 8.97 RBC (3.93-5.22) 10^6/uL 3.95 Hgb (11.2-15.7) g/dL 11.8 Hct (36.0-46.0) % 35.9 L MCV (80-95) fL 91 MCH (27.0-33.0) pg 29.9 MCHC (32.0-36.0) % 32.9 RDW (11.7-14.6) % 14.2 Plt Count (130-400) 10^3/uL 300 MPV (8.0-11.0) fL 9.6 Immature Gran % 0.7 Neutrophils % 62.2 Lymphocytes % 25.9 Monocytes % 6.0 Eosinophils % 4.1 Basophils % 1.1 Nucleated RBC % (0.0-0.3) % 0.0 Absolute Neutrophils (1.2-6.7) 10^3/uL 5.58 Absolute Lymphocytes (1.2-3.4) 10^3/uL 2.32 Absolute Monocytes (0.1-0.8) 10^3/uL 0.54 Absolute Eosinophils (0.0-0.7) 10^3/uL 0.37 Absolute Basophils (0.0-0.2) 10^3/uL 0.10 Sodium (136-145) mmol/L 140 Potassium (3.5-5.1) mmol/L 4.5 Chloride (98-107) mmol/L 106 Carbon Dioxide (21.0-32.0) mmol/L 24.2 Anion Gap (3-11) mmol/L 9.8 BUN (7-18) mg/dL 62 H Creatinine (0.55-1.02) mg/dL 1.7 H Est GFR (CKD-EPI 2020) (mL/min/1.73m2) 33.49 Glucose (74-106) mg/dL 103 Calcium (8.5-10.1) mg/dL 9.4 Magnesium (1.8-2.4) mg/dL 1.6 L Total Bilirubin (0.2-1.0) mg/dL 0.3 AST (15-37) U/L 21 ALT (14-59) U/L 24 Alkaline Phosphatase (46-116) U/L 85 Troponin I (<or=60) ng/L < 50 Total Protein (6.4-8.2) g/dL 7.1 Albumin (3.4-5.0) g/dL 3.4 Critical Care Time <WHIT Humphries - Last Filed: 06/26/23 18:26> Critical Care Time Attestation: Approximately 35 minutes of critical care time secondary to telemetry monitoring in the presence of unstable angina, heparin infusion and bolus for ACS, diagnostic imaging interpretation and review, diagnostic lab interpretation and review Sign Out <WHIT Humphries - Last Filed: 06/26/23 18:26> Sign Out Data: Sign Out Comment: pending repeat trop and ekg at 1630/notify [facility] [place] with results unstable angina, heparin for acs nitro prn Last updated by Tea Huang PA at 06/25/23 15:58
[2023-06-25] MEDS: Omnipaque 350 MG/ML 500 ML BTL-Imaging package IJ (14:42)
[2023-06-25] MEDS: Normal Saline - Diluent 50 ML VIAL IJ (14:45)
[2023-06-25 15:32] LABS: PTT Activated 26.6 sec (23.6-32.8)
[2023-06-25] MEDS: Heparin in 0.45% NaCl 25,000 UNIT/250 ML BAG 10 UNIT IV (15:35)
--- NOTE | 2023-06-25 15:45 | RT.EKG_ITS ---
APPROVED REPORT Exam: Resting ECG Reason for Exam: chest pain Patient Location: E HR:87 bpm ECG Measurements Heart Rate 87 AXIS IN 189 P 36 QRSd 77 QRS 3 QT 380 T 51 QTc 458 Conclusion Sinus 87 normal axis no change from prior
[2023-06-25] MEDS: nitroGLYcerin 2% 1 INCH/1 GM PKT TP (16:59)
[2023-06-25] MEDS: Pantoprazole 40 MG VIAL IVP (16:59)
[2023-06-25] MEDS: DEXTROSE 5%-0.45% SALINE 1,000 ML 50 ML IV (17:01)
[2023-06-25 17:24] LABS: Troponin I < 50 ng/L (<or=60)
[2023-06-25] MEDS: HYDROcodone 5/Acetaminophen 325 TAB PO (17:36)
[2023-06-25] MEDS: LORazepam 0.5 MG TAB PO (17:36)
[2023-06-25 22:39] LABS: PTT Activated 71.3 sec (23.6-32.8)
[2023-06-25] MEDS: Acetaminophen 325 MG TAB 650 MG PO (23:14)
--- NOTE | 2023-06-26 07:11 | NUR.NOTE ---
Accessed pt chart to determine number of EKG orders. 4th order, has no EKG attached to it. Order cancelled. Nursing Note:
== END 2023-06-25 23:31 | disposition short-term general hospital (02) ==
PROVIDERS: Emergency Medicine; Physician Assistant; Emergency Provider Nurse Practitioner Acute Care
DX: R07.9 Chest pain, unspecified (principal); E10.22 Type 1 diabetes mellitus with diabetic chronic kidney disease; I12.9 Hypertensive chronic kidney disease with stage 1 through stage 4 chronic kidney disease, or unspecified chronic kidney disease; E78.5 Hyperlipidemia, unspecified; I25.10 Atherosclerotic heart disease of native coronary artery without angina pectoris; N18.9 Chronic kidney disease, unspecified; Z79.4 Long term (current) use of insulin; Z79.899 Other long term (current) drug therapy; I25.2 Old myocardial infarction; Z95.5 Presence of coronary angioplasty implant and graft
CPT/HCPCS: 71275; 80053; 82962; 93005; 96365; 96366; 96375; 99291; 83735; 84484; 85025; 85610; 85730; 93010

== ENCOUNTER 2023-07-08 12:28 | Emergency (ER) | payer MEDICARE, MEDICAID, SELFPAY ==
[2023-07-08] VITALS (50 sets, daily range): BP systolic 109–144; BP diastolic 61–83; PULSE 75–87; RESP 10–24; TEMP 36.5; O2SAT 99
--- NOTE | 2023-07-08 12:30 | RT.EKG_ITS ---
APPROVED REPORT Exam: Resting ECG Reason for Exam: BP meds, weakness Patient Location: E HR:86 bpm ECG Measurements Heart Rate 86 AXIS ND 178 P 11 QRSd 74 QRS 45 QT 363 T 36 QTc 434 Conclusion Sinus rhythm...normal P axis, V-rate 60- 99 Ventricular premature complex...V complex w/ short R-R interval Low voltage, precordial leads...precordial leads <1.0mV Sinus rhythm. No change from prior 06/25/23. WD
--- NOTE | 2023-07-08 13:00 | DI.RAD_ITS ---
Exam(s) XR PORTABLE CHEST AP EXAM: XR PORTABLE CHEST AP CLINICAL HISTORY: chest pain TECHNIQUE: 2D digital imaging was performed. COMPARISON: CT CT CHEST PE CTA from 06/25/2023 FINDINGS: Exam limited by poor pulmonary inflation. Leads overlie the chest. LUNGS: Grossly clear. No pleural abnormality seen. HEART: Normal size. AORTA: Normal diameter. BONES: Unremarkable for age. Soft tissues: Unremarkable. IMPRESSION: No acute findings. DATA REPOSITORY: RADIATION DOSE DELIVERED:
--- NOTE | 2023-07-08 13:00 | DI.US_ITS ---
Exam(s) US UPPER EXTREMITY VENOUS RT EXAM: US UPPER EXTREMITY VENOUS RT CLINICAL HISTORY: recent cath, RUE pain. TECHNIQUE: Ultrasound examination of the right upper extremity venous system(s) is performed using g rayscale, color-flow, and spectral Doppler analysis. COMPARISON: No exams were available for comparison FINDINGS: The right internal jugular, axillary, subclavian, cephalic, basilic, brachial, radial, and ulnar vein s are patent without evidence of thrombosis. No fluid collection or abscess. IMPRESSION: Negative right upper extremity ultrasound. DATA REPOSITORY:
[2023-07-08 13:50] LABS: Abs Immature Grans 0.08 10^3/uL (0.0-0.06); Absolute Eosinophil Count 0.27 10^3/uL (0.0-0.7); Absolute Lymphocyte Count 2.48 10^3/uL (1.2-3.4); Absolute Monocyte Count 0.61 10^3/uL (0.1-0.8); Absolute Neutrophil Count 7.35 10^3/uL (1.2-6.7); Basophils % 0.9; Eosinophils % 2.5; HCT 36.5 % (36.0-46.0); HGB 12.2 g/dL (11.2-15.7); Immature Grans % 0.7; Lymphocytes % 22.8; MCH 30.2 pg (27.0-33.0); MCHC 33.4 % (32.0-36.0); MCV 90 fL (80-95); MPV 9.5 fL (8.0-11.0); Monocytes % 5.6; Neutrophils % 67.5; Platelet Count 310 10^3/uL (130-400); RBC 4.04 10^6/uL (3.93-5.22); RDW 13.6 % (11.7-14.6); RDW-SD 45.3 fL; WBC 10.89 10^3/uL (4.4-10.8)
[2023-07-08] MEDS: Normal Saline 500 ML IV (13:51)
--- NOTE | 2023-07-08 14:47 | NUR.NOTE ---
Nursing Note: Pt placed on monitor and PIV established by this RN in one attempt. Lab stated, labs hemolyzed. Pt taken to radiology before labs could be redrawn. Pt now back on room and vitals updated. Labs sent again. Pt has warm blankets and call light within reach.
--- NOTE | 2023-07-08 14:58 | W.ED.GENAD ---
Discharge Plan Disposition Patient Disposition: Home Condition: Stable Discharge Details Clinical Impression: Dizziness, Chest pain Primary Care Provider: Jeny Almonte ED Provider: Liat Morales Home Meds and New Rx's Prescriptions: Continued nystatin 100,000 unit/mL Suspension 5 ml PO QID PRN PRN naloxone [Narcan] 4 mg/actuation [place],Non-Aerosol 4 mg INTRANASAL PRN PRN (DME) rolling walker with seat Qty: 1 0RF Rx Instructions: As directed with ambulation metoprolol succinate 25 mg tablet extended release 24 hr 25 mg PO DAILY Patient Comments: 12.5 am 12.5pm insulin aspart U-100 [Novolog FlexPen U-100 Insulin] 300 UNITS/3 ML insulin pen 2 - 20 units Sub-Q 0800,1200,1700 Rx Instructions: Dispense one pen see sliding scale bupropion HCl 150 mg tablet sustained-release 12 hr 1 tab PO BID Patient Comments: TAKE ONE TABLET BY MOUTH TWICE A DAY lisinopril 2.5 mg tablet 2.5 mg PO DAILY Patient Comments: TAKE ONE TABLET BY MOUTH EVERY DAY lorazepam 0.5 mg tablet 0.5 mg PO BID PRN Patient Comments: TAKE ONE TABLET BY MOUTH EVERY 6 HOURS NEEDED FOR ANXIETY nitroglycerin [Nitrostat] 0.4 MG tablet, sublingual 0.4 mg Sublingual PRN PRN cyclobenzaprine 10 mg tablet 10 mg PO Q8H PRN PRN atorvastatin 40 mg tablet 40 mg PO DAILY Patient Comments: TAKE ONE TABLET BY MOUTH EVERY DAY cetirizine 10 mg tablet 10 mg PO DAILY Patient Comments: no longer taking 05/19/23 MG hydrocodone-acetaminophen 5-325 mg tablet 1 tab PO Q8H PRN PRN Patient Comments: TAKE ONE TABLET BY MOUTH EVERY 6 TO 8 HOURS NEEDED cyanocobalamin (vitamin B-12) [Vitamin B-12] 1,000 mcg tablet 1,000 mcg PO DAILY Patient Comments: no longer taking 05/19/23 MG aspirin 81 mg tablet,delayed release (DR/EC) 81 mg PO DAILY Patient Comments: TAKE ONE TABLET BY MOUTH EVERY DAY pyridoxine (vitamin B6) 100 mg tablet 100 mg PO DAILY Patient Comments: no longer taking, insurance will not pay for 05/19/23 fluticasone propionate 50 mcg/actuation spray,suspension 1 spray INTRANASAL DAILY Patient Comments: INSTILL 2 SPRAYS NASALLY DAILY duloxetine 30 mg capsule,delayed release(DR/EC) 30 mg PO DAILY Patient Comments: TAKE ONE CAPSULE BY MOUTH EVERY DAY WITH 60MG duloxetine 60 mg capsule,delayed release(DR/EC) 60 mg PO DAILY Patient Comments: TAKE ONE CAPSULE BY MOUTH EVERY DAY dexlansoprazole [Dexilant] 60 mg capsule,biphase delayed releas 60 mg PO DAILY Patient Comments: No longer taking 05/19/23 MG docusate sodium 250 mg Capsule 250 mg PO DAILY PRN insulin glargine [Basaglar KwikPen U-100 Insulin] 100 unit/mL (3 mL) insulin pen 30 unit SUBCUT BID Patient Comments: INJECT 60 UNITS SUBCUTANEOUSLY ONCE DAILY (30 UNITS EVERY MORNING AND 30 UNITS QPM) cholecalciferol (vitamin D3) [Vitamin D3] 25 mcg (1,000 unit) capsule 1,000 unit PO DAILY Patient Comments: no longer taking 05/19/23 MG magnesium citrate 100 mg Capsule 100 mg PO DAILY lidocaine [Lidoderm] 5 % adhesive patch,medicated 1 patch topical DAILY PRNQty: 15 0RF Rx Instructions: leave on most painful area for up to 12 hrs Discharge Instructions Instructions: Chest Pain (ED), Dizziness (ED) Additional Instructions: No evidence of acute heart attack at this time, you have had 3 negative Troponins, and an unchanged EKG. Cardiology at [facility] feel that it is safe for you to be discharged home. Please follow up with cardiology within the next week. Follow up with primary care provider in 3-5 days. Return to ED sooner if any worsening or concerns. Increase oral fluids. Referrals: Jeny Almonte [Primary Care Provider] - 3 days Discharge Data Discharge Date/Time-TO BE ENTERED AT DEPARTURE: 07/08/23 20:34 Medical Decision Making 60-year-old female with known history recent angioplasty at [facility], presenting today with chest pain, patient states this is been going on for the past week Afebrile and nontoxic, EKG does not show acute ischemia, initial troponin negative No acute pain during my initial assessment, chest x-ray without acute abnormality per radiology interpretation and my review, endorsing some right arm pain so ultrasound was ordered, no evidence of DVT, low suspicion clinically for PE Diagnostic labs, potassium noted to be high at 5.5, patient will likely need to come off her lisinopril, will need repeat troponin at 3-hour hal, case discussed with cardiology at [facility], recommends repeat troponin and if this were to elevate could be transferred to [facility], if patient's troponin remained stable, recommendation for admission for rule out versus close outpatient reassessment Patient has remained pain-free throughout this encounter Blood pressures remained stable Care be transitioned to pending repeat troponin and EKG/disposition HPI General Date/Time Provider Initiated Documentation: 07/08/23 12:34. HPI Narrative: This 63-year-old female presents with report of chest pain and some lightheadedness without nausea or vomiting or diaphoresis. Status post angioplasty performed at [facility] 2 weeks ago was switched to metoprolol and placed back on Plavix. States that she had intermittent symptoms for about a week. Denies any fever or chills. Denies any calf pain or swelling. Has had some pain in her right arm. Patient states she has been at rest when her symptoms have been present. Related Data Home Medications Medication Instructions Recorded Confirmed nitroglycerin 0.4 mg sublingual 0.4 mg sublingual PRN PRN 06/01/17 07/08/23 tablet (Nitrostat) naloxone 4 mg/actuation nasal 4 mg intranasal PRN PRN 09/10/19 07/08/23 spray (Narcan) nystatin 100,000 unit/mL oral 5 ml PO QID PRN PRN 09/10/19 07/08/23 suspension rolling walker with seat #1 ea 01/12/20 07/08/23 aspirin 81 mg tablet,delayed 81 mg PO DAILY 06/24/20 07/08/23 release atorvastatin 40 mg tablet 40 mg PO DAILY 06/24/20 07/08/23 cetirizine 10 mg tablet 10 mg PO DAILY 06/24/20 07/08/23 cyanocobalamin (vitamin B-12) 1,000 mcg PO DAILY 06/24/20 07/08/23 1,000 mcg tablet (Vitamin B-12) cyclobenzaprine 10 mg tablet 10 mg PO Q8H PRN PRN 06/24/20 07/08/23 dexlansoprazole 60 mg 60 mg PO DAILY 06/24/20 07/08/23 capsule,biphase delayed release (Dexilant) duloxetine 30 mg capsule,delayed 30 mg PO DAILY 06/24/20 07/08/23 release duloxetine 60 mg capsule,delayed 60 mg PO DAILY 06/24/20 07/08/23 release fluticasone propionate 50 1 spray intranasal DAILY 06/24/20 07/08/23 mcg/actuation nasal spray,suspension hydrocodone 5 mg-acetaminophen 325 1 tab PO Q8H PRN PRN 06/24/20 07/08/23 mg tablet pyridoxine (vitamin B6) 100 mg 100 mg PO DAILY 06/24/20 07/08/23 tablet docusate sodium 250 mg capsule 250 mg PO DAILY PRN 07/16/20 07/08/23 insulin aspart U-100 100 unit/mL 2 - 20 units subcut 0800,1200,1700 11/15/20 07/08/23 (3 mL) subcutaneous pen (Novolog FlexPen U-100 Insulin aspart) metoprolol succinate 25 mg 25 mg PO DAILY 01/09/21 06/25/23 tablet,extended release 24 hr bupropion HCl 150 mg tablet,12 hr 1 tab PO BID 02/07/22 07/08/23 sustained-release lisinopril 2.5 mg tablet 2.5 mg PO DAILY 02/07/22 07/08/23 insulin glargine 100 unit/mL (3 30 unit subcut BID 02/10/22 07/08/23 mL) subcutaneous pen (Basaglar KwikPen U-100 Insulin) cholecalciferol (vitamin D3) 25 1,000 unit PO DAILY 02/20/23 07/08/23 mcg (1,000 unit) capsule (Vitamin D3) lidocaine 5 % topical patch 1 patch topical DAILY PRN #15 ea 02/20/23 07/08/23 (Lidoderm) magnesium citrate 100 mg capsule 100 mg PO DAILY 02/20/23 07/08/23 lorazepam 0.5 mg tablet 0.5 mg PO BID PRN 06/25/23 07/08/23 Previous Rx's Medication Instructions Recorded rolling walker with seat #1 ea 01/12/20 lidocaine 5 % topical patch 1 patch topical DAILY PRN #15 ea 02/20/23 (Lidoderm) Allergies Allergy/AdvReac Type Severity Reaction Status Date / Time quetiapine [From Seroquel] Allergy Intermediate Unverified 07/08/23 12:58 amoxicillin [From Augmentin] Allergy Unverified 07/08/23 12:58 clavulanic acid Allergy Unverified 07/08/23 12:58 [From Augmentin] Penicillins Allergy Unverified 07/08/23 12:58 Sulfa (Sulfonamide Allergy Unverified 07/08/23 12:58 Antibiotics) exenatide [From [place]] AdvReac Intermediate diarrhea Unverified 07/08/23 12:58 metformin AdvReac Intermediate diarrhea Unverified 07/08/23 12:58 amitriptyline AdvReac made my Unverified 07/08/23 12:58 face go numb amoxicillin trihydrate AdvReac acute Unverified 07/08/23 12:58 [From Augmentin] kidney failure NSAIDS (Non-Steroidal AdvReac stage III Unverified 07/08/23 12:58 Anti-Inflamma kidney disease potassium clavulanate AdvReac acute Unverified 07/08/23 12:58 [From Augmentin] kidney failure General Stated Complaint: Dizzy/Sync SADE: 3 PFSH All Active Problems (Updated 07/08/23 @ 20:12 by Liat Morales NP) Dizziness (Acute) Hyperglycemia (Acute) Acute adrenal insufficiency (Acute) URI (upper respiratory infection) (Acute) Headache (Acute) Urinary tract infection (Acute) Atypical chest pain (Acute) Hypomagnesemia (Acute) COVID-19 (Acute) Coronary artery disease (Chronic) Chest pain (Acute) CAD (coronary atherosclerotic disease) (Acute) 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 (Acute) Type 1 diabetes mellitus with diabetic polyneuropathy (Acute) Primary osteoarthritis of both first carpometacarpal joints (Acute 12/22/17) Hypertension (Chronic) Insomnia (Acute) GERD (gastroesophageal reflux disease) (Chronic) Chronic kidney disease (Chronic) COPD (chronic obstructive pulmonary disease) (Chronic) Mixed anxiety depressive disorder (Acute) Medical History Acute exacerbation of chronic obstructive airways disease Acute sinusitis Allergic rhinitis Anemia Benign neoplasm of peripheral nerve Benign neoplasm of peripheral nerves and autonomic nervous system, unspecified Cataracts, bilateral Chronic renal impairment associated with type 2 diabetes mellitus CKD stage 3 due to type 2 diabetes mellitus Colon polyp Depression Diabetes pt reports elevated HgbA1c. 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 No complications. Coronary Stent Cholecystectomy Appendectomy Family History Brother Diabetes Hypertension Heart disease Stroke Obesity Chronic headaches Arthritis Brother Arthritis Chronic headaches Diabetes Heart disease Hypertension Obesity Stroke Father Heart disease Stroke Hypertension Chronic headaches Sister Diabetes Obesity Osteoporosis Daughter Migraine Obesity Brother Arthritis Diabetes Chronic headaches Hypertension Obesity Stroke Mother Asthma Arthritis Diabetes Obesity Stroke Glaucoma Social History Smoking/Tobacco Use Status: Former Tobacco Use Quit Date: 04/13/19 Pack-years: 45 Tobacco: How many years used: 45 Quit status: considering quitting Smoking risk assessment performed?: Yes Alcohol Intake: never Drug use: Never Substance use type: does not use Details: Quit smoking 6 months ago. Household members: friend(s) Housing: apartment Number of Children: 3 number of grandchildren: 14 current occupation: none What is your relationship status?: Panel score (0-1 are the most socially isolated patients): 0 What type of physical activity do you participate in: none Do you feel safe at home: Yes Do you feel safe in your relationship?: Yes Course Vital Signs Vital signs: Vital Signs Temperature 36.5 C 07/08/23 12:47 Pulse 87 07/08/23 12:47 Respiratory Rate 18 07/08/23 12:47 Blood Pressure 121/63 07/08/23 12:47 Pulse Oximetry 99 07/08/23 12:47 Temperature 36.5 C 07/08/23 12:47 Temperature Source Skin 07/08/23 12:47 Pulse 79 07/08/23 14:46 Pulse 78 07/08/23 14:47 Respiratory Rate 20 07/08/23 14:47 Respiratory Effort Normal 07/08/23 12:53 Respiratory Depth Normal 07/08/23 12:53 Respiratory Pattern Normal 07/08/23 12:53 Blood Pressure 134/76 07/08/23 14:46 Blood Pressure Mean 94 07/08/23 14:46 Blood Pressure Position Sitting 07/08/23 12:47 Pulse Oximetry 99 07/08/23 13:18 Oxygen Delivery Method Room Air 07/08/23 13:18 Oxygen Flow Rate 0 07/08/23 13:18 Pain Level 0 07/08/23 12:47 Lab/Test Results Lab/Test Results: Laboratory Tests Range/Units 07/08/23 13:25 WBC (4.4-10.8) 10^3/uL 10.89 H RBC (3.93-5.22) 10^6/uL 4.04 Hgb (11.2-15.7) g/dL 12.2 Hct (36.0-46.0) % 36.5 MCV (80-95) fL 90 MCH (27.0-33.0) pg 30.2 MCHC (32.0-36.0) % 33.4 RDW (11.7-14.6) % 13.6 Plt Count (130-400) 10^3/uL 310 MPV (8.0-11.0) fL 9.5 Immature Gran % 0.7 Neutrophils % 67.5 Lymphocytes % 22.8 Monocytes % 5.6 Eosinophils % 2.5 Basophils % 0.9 Nucleated RBC % (0.0-0.3) % 0.0 Absolute Neutrophils (1.2-6.7) 10^3/uL 7.35 H Absolute Lymphocytes (1.2-3.4) 10^3/uL 2.48 Absolute Monocytes (0.1-0.8) 10^3/uL 0.61 Absolute Eosinophils (0.0-0.7) 10^3/uL 0.27 Absolute Basophils (0.0-0.2) 10^3/uL 0.10 Sodium Cancelled Potassium Cancelled Chloride Cancelled Carbon Dioxide Cancelled Anion Gap Cancelled BUN Cancelled Creatinine Cancelled Est GFR (CKD-EPI 2020) Cancelled Glucose Cancelled Calcium Cancelled Magnesium Cancelled Total Bilirubin Cancelled AST Cancelled ALT Cancelled Alkaline Phosphatase Cancelled Troponin I Cancelled Total Protein Cancelled Albumin Cancelled
[2023-07-08 15:11] LABS: ALT 21 U/L (14-59); AST 14 U/L (15-37); Albumin 3.1 g/dL (3.4-5.0); Alkaline Phosphatase 77 U/L (46-116); Anion Gap 7.6 mmol/L (3-11); BUN 56 mg/dL (7-18); Bilirubin, Total 0.4 mg/dL (0.2-1.0); CO2 26.4 mmol/L (21.0-32.0); Calcium 9.1 mg/dL (8.5-10.1); Chloride 103 mmol/L (98-107); Estimated GFR 27.55 (mL/min/1.73m2); Glucose 153 mg/dL (74-106); Magnesium 1.7 mg/dL (1.8-2.4); Potassium 5.5 mmol/L (3.5-5.1); Sodium 137 mmol/L (136-145); Total Protein 6.8 g/dL (6.4-8.2); Troponin I < 50 ng/L (<or=60)
--- NOTE | 2023-07-08 16:17 | ED.PROG_ITS ---
Date of service: 07/08/23 Time of Service: 16:17 Medical Decision Making Assumed care of patient from Tea SHERMAN, at the time of signout awaiting serial troponin and possible admission. 174: Hospitalist paged, He requests that call back for night hospitalist. Spoke with patient and family and updated on POC. They verbalize understanding and verbalize understanding and are in agreement with the plan. She reports intermittent chest pains at rest. 1833: Hospitalist paged. 1850: Spoke with Dr. Garcia, he recommends speaking again with [facility] [place] get further [place]. 1854: Spoke with [facility] [place], prior recomendations were to trend troponins every 3 hours and to transfer if increased trop, or EKG changes. 1999: Spoke with Dr. Velasquez with [facility] [place], he does not recommend treating this as ACS currently, he recommends repeat echocardiogram in future, discharge, increasing her Metoprolol to 50mg and outpatient follow up. Will update patient on plan of care. Discussed plan of care with patient and she verbalized understanding. At this time she feels okay being discharged home. She does not wish to increase her metoprolol due to the dizziness that brought her into the ER today. Discussed home care follow-up and return instructions she verbalized understanding. This text was generated using Onaroation system, please disregard any oddities of phrase or misspellings. Medical Records Medical records reviewed: Yes I reviewed the patient's medical records. Lab Data Lab results reviewed: Yes I reviewed the patient's lab results. Labs: Laboratory Tests Range/Units 07/08/23 07/08/23 07/08/23 13:25 14:45 16:15 WBC (4.4-10.8) 10^3/uL 10.89 H RBC (3.93-5.22) 10^6/uL 4.04 Hgb (11.2-15.7) g/dL 12.2 Hct (36.0-46.0) % 36.5 MCV (80-95) fL 90 MCH (27.0-33.0) pg 30.2 MCHC (32.0-36.0) % 33.4 RDW (11.7-14.6) % 13.6 Plt Count (130-400) 10^3/uL 310 MPV (8.0-11.0) fL 9.5 Immature Gran % 0.7 Neutrophils % 67.5 Lymphocytes % 22.8 Monocytes % 5.6 Eosinophils % 2.5 Basophils % 0.9 Nucleated RBC % (0.0-0.3) % 0.0 Absolute Neutrophils (1.2-6.7) 10^3/uL 7.35 H Absolute Lymphocytes (1.2-3.4) 10^3/uL 2.48 Absolute Monocytes (0.1-0.8) 10^3/uL 0.61 Absolute Eosinophils (0.0-0.7) 10^3/uL 0.27 Absolute Basophils (0.0-0.2) 10^3/uL 0.10 Sodium Cancelled 137 Potassium Cancelled 5.5 H Chloride Cancelled 103 Carbon Dioxide Cancelled 26.4 Anion Gap Cancelled 7.6 BUN Cancelled 56 H Creatinine Cancelled 2.0 H Est GFR (CKD-EPI 2020) Cancelled 27.55 Glucose Cancelled 153 H Calcium Cancelled 9.1 Magnesium Cancelled 1.7 L Total Bilirubin Cancelled 0.4 AST Cancelled 14 L ALT Cancelled 21 Alkaline Phosphatase Cancelled 77 Troponin I Cancelled < 50 < 50 Total Protein Cancelled 6.8 Albumin Cancelled 3.1 L Discharge Plan Disposition Patient Disposition: Home Condition: Stable Discharge Details Clinical Impression: Dizziness, Chest pain Primary Care Provider: Jeny Almonte ED Provider: Liat Morales Home Meds and New Rx's Prescriptions: Continued nystatin 100,000 unit/mL Suspension 5 ml PO QID PRN PRN naloxone [Narcan] 4 mg/actuation [place],Non-Aerosol 4 mg INTRANASAL PRN PRN (DME) rolling walker with seat Qty: 1 0RF Rx Instructions: As directed with ambulation metoprolol succinate 25 mg tablet extended release 24 hr 25 mg PO DAILY Patient Comments: 12.5 am 12.5pm insulin aspart U-100 [Novolog FlexPen U-100 Insulin] 300 UNITS/3 ML insulin pen 2 - 20 units Sub-Q 0800,1200,1700 Rx Instructions: Dispense one pen see sliding scale bupropion HCl 150 mg tablet sustained-release 12 hr 1 tab PO BID Patient Comments: TAKE ONE TABLET BY MOUTH TWICE A DAY lisinopril 2.5 mg tablet 2.5 mg PO DAILY Patient Comments: TAKE ONE TABLET BY MOUTH EVERY DAY lorazepam 0.5 mg tablet 0.5 mg PO BID PRN Patient Comments: TAKE ONE TABLET BY MOUTH EVERY 6 HOURS NEEDED FOR ANXIETY nitroglycerin [Nitrostat] 0.4 MG tablet, sublingual 0.4 mg Sublingual PRN PRN cyclobenzaprine 10 mg tablet 10 mg PO Q8H PRN PRN atorvastatin 40 mg tablet 40 mg PO DAILY Patient Comments: TAKE ONE TABLET BY MOUTH EVERY DAY cetirizine 10 mg tablet 10 mg PO DAILY Patient Comments: no longer taking 05/19/23 MG hydrocodone-acetaminophen 5-325 mg tablet 1 tab PO Q8H PRN PRN Patient Comments: TAKE ONE TABLET BY MOUTH EVERY 6 TO 8 HOURS NEEDED cyanocobalamin (vitamin B-12) [Vitamin B-12] 1,000 mcg tablet 1,000 mcg PO DAILY Patient Comments: no longer taking 05/19/23 MG aspirin 81 mg tablet,delayed release (DR/EC) 81 mg PO DAILY Patient Comments: TAKE ONE TABLET BY MOUTH EVERY DAY pyridoxine (vitamin B6) 100 mg tablet 100 mg PO DAILY Patient Comments: no longer taking, insurance will not pay for 05/19/23 fluticasone propionate 50 mcg/actuation spray,suspension 1 spray INTRANASAL DAILY Patient Comments: INSTILL 2 SPRAYS NASALLY DAILY duloxetine 30 mg capsule,delayed release(DR/EC) 30 mg PO DAILY Patient Comments: TAKE ONE CAPSULE BY MOUTH EVERY DAY WITH 60MG duloxetine 60 mg capsule,delayed release(DR/EC) 60 mg PO DAILY Patient Comments: TAKE ONE CAPSULE BY MOUTH EVERY DAY dexlansoprazole [Dexilant] 60 mg capsule,biphase delayed releas 60 mg PO DAILY Patient Comments: No longer taking 05/19/23 MG docusate sodium 250 mg Capsule 250 mg PO DAILY PRN insulin glargine [Basaglar KwikPen U-100 Insulin] 100 unit/mL (3 mL) insulin pen 30 unit SUBCUT BID Patient Comments: INJECT 60 UNITS SUBCUTANEOUSLY ONCE DAILY (30 UNITS EVERY MORNING AND 30 UNITS QPM) cholecalciferol (vitamin D3) [Vitamin D3] 25 mcg (1,000 unit) capsule 1,000 unit PO DAILY Patient Comments: no longer taking 05/19/23 MG magnesium citrate 100 mg Capsule 100 mg PO DAILY lidocaine [Lidoderm] 5 % adhesive patch,medicated 1 patch topical DAILY PRNQty: 15 0RF Rx Instructions: leave on most painful area for up to 12 hrs Discharge Instructions Instructions: Chest Pain (ED), Dizziness (ED) Additional Instructions: No evidence of acute heart attack at this time, you have had 3 negative Troponins, and an unchanged EKG. [place] [facility] [place] it is safe for you to be [place] home. Please follow up with cardiology within the next week. Follow up with primary care provider in 3-5 days. Return to ED sooner if any worsening or concerns. Increase oral fluids. Referrals: Jeny Almonte [Primary Care Provider] - 3 days
[2023-07-08 17:05] LABS: Troponin I < 50 ng/L (<or=60)
--- NOTE | 2023-07-08 18:45 | RT.EKG_ITS ---
APPROVED REPORT Exam: Resting ECG Reason for Exam: Repeat, Chest pain Patient Location: E HR:79 bpm ECG Measurements Heart Rate 79 AXIS [place] 194 P 69 QRSd 75 QRS -15 QT 392 T 30 QTc 451 Conclusion Sinus rhythm...normal P axis, V-rate 60- 99 Inferior infarct, old...Q >35mS, II III aVF
[2023-07-08] MEDS: nitroGLYcerin 2% 1 INCH/1 GM PKT TP (19:14)
[2023-07-08 19:47] LABS: Troponin I < 50 ng/L (<or=60)
== END 2023-07-08 20:34 | disposition home or self-care (01) ==
PROVIDERS: Physician Assistant; Emergency Provider Registered Nurse Emergency; PCP Nurse Practitioner Family
DX: R42 Dizziness and giddiness (principal); R55 Syncope and collapse; E10.22 Type 1 diabetes mellitus with diabetic chronic kidney disease; I12.9 Hypertensive chronic kidney disease with stage 1 through stage 4 chronic kidney disease, or unspecified chronic kidney disease; N18.30 Chronic kidney disease, stage 3 unspecified; E10.3599 Type 1 diabetes mellitus with proliferative diabetic 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 edema, unspecified eye; Z79.01 Long term (current) use of anticoagulants
CPT/HCPCS: 00123; 36415; 80053; 93005; 96360; 99284; 71045; 83735; 84484; 85025; 93010; 93971

== ENCOUNTER 2023-07-24 12:27 | Emergency (ER) | payer MEDICARE, MEDICAID, SELFPAY ==
[2023-07-24] VITALS (48 sets, daily range): BP systolic 83–144; BP diastolic 53–115; PULSE 83–127; RESP 10–25; TEMP 35.8; O2SAT 76–100
--- NOTE | 2023-07-24 12:15 | RT.EKG_ITS ---
APPROVED REPORT Exam: Resting ECG Reason for Exam: chest pain Patient Location: E HR:97 bpm ECG Measurements Heart Rate 97 AXIS [place] 176 P 32 QRSd 77 QRS -1 QT 349 T 49 QTc 443 Conclusion Sinus rhythm...normal P axis I have reviewed and interpreted ECG and agree with software generated interpretation.
--- NOTE | 2023-07-24 12:53 | ED.GENADUL_ITS ---
Discharge Plan Discharge Details Chief Complaint: Chest Pain Primary Care Provider: Jeny Almonte ED Provider: Burton You Home Meds and New Rx's Prescriptions: No Action nystatin 100,000 unit/mL Suspension 5 ml PO QID PRN PRN naloxone [Narcan] 4 mg/actuation [place],Non-Aerosol 4 mg INTRANASAL PRN PRN (DME) rolling walker with seat Qty: 1 0RF Rx Instructions: As directed with ambulation metoprolol succinate 25 mg tablet extended release 24 hr 25 mg PO DAILY Patient Comments: 12.5 am 12.5pm insulin aspart U-100 [Novolog FlexPen U-100 Insulin] 300 UNITS/3 ML insulin pen 2 - 20 units Sub-Q 0800,1200,1700 Rx Instructions: Dispense one pen see sliding scale bupropion HCl 150 mg tablet sustained-release 12 hr 1 tab PO BID Patient Comments: TAKE ONE TABLET BY MOUTH TWICE A DAY lorazepam 0.5 mg tablet 0.5 mg PO BID PRN Patient Comments: TAKE ONE TABLET BY MOUTH EVERY 6 HOURS NEEDED FOR ANXIETY nitroglycerin [Nitrostat] 0.4 MG tablet, sublingual 0.4 mg Sublingual PRN PRN cyclobenzaprine 10 mg tablet 10 mg PO Q8H PRN PRN cetirizine 10 mg tablet 10 mg PO DAILY Patient Comments: no longer taking 05/19/23 MG hydrocodone-acetaminophen 5-325 mg tablet 1 tab PO Q8H PRN PRN Patient Comments: TAKE ONE TABLET BY MOUTH EVERY 6 TO 8 HOURS NEEDED cyanocobalamin (vitamin B-12) [Vitamin B-12] 1,000 mcg tablet 1,000 mcg PO DAILY Patient Comments: no longer taking 05/19/23 MG aspirin 81 mg tablet,delayed release (DR/EC) 81 mg PO DAILY Patient Comments: TAKE ONE TABLET BY MOUTH EVERY DAY pyridoxine (vitamin B6) 100 mg tablet 100 mg PO DAILY Patient Comments: no longer taking, insurance will not pay for 05/19/23 fluticasone propionate 50 mcg/actuation spray,suspension 1 spray INTRANASAL DAILY Patient Comments: INSTILL 2 SPRAYS NASALLY DAILY duloxetine 30 mg capsule,delayed release(DR/EC) 30 mg PO DAILY Patient Comments: TAKE ONE CAPSULE BY MOUTH EVERY DAY WITH 60MG duloxetine 60 mg capsule,delayed release(DR/EC) 60 mg PO DAILY Patient Comments: TAKE ONE CAPSULE BY MOUTH EVERY DAY dexlansoprazole [Dexilant] 60 mg capsule,biphase delayed releas 60 mg PO DAILY Patient Comments: No longer taking 05/19/23 MG docusate sodium 250 mg Capsule 250 mg PO DAILY PRN insulin glargine [Basaglar KwikPen U-100 Insulin] 100 unit/mL (3 mL) insulin pen 30 unit SUBCUT BID Patient Comments: INJECT 60 UNITS SUBCUTANEOUSLY ONCE DAILY (30 UNITS EVERY MORNING AND 30 UNITS QPM) cholecalciferol (vitamin D3) [Vitamin D3] 25 mcg (1,000 unit) capsule 1,000 unit PO DAILY Patient Comments: no longer taking 05/19/23 MG magnesium citrate 100 mg Capsule 100 mg PO DAILY lidocaine [Lidoderm] 5 % adhesive patch,medicated 1 patch topical DAILY PRNQty: 15 0RF Rx Instructions: leave on most painful area for up to 12 hrs atorvastatin 80 mg tablet 40 mg PO BID Patient Comments: TAKE ONE TABLET AB BY MOUTH DAILY (cuts tab in half, takes morning and night to reduce side effects) Medical Decision Making This dictation utilizes [id number] dictation software and may contain unedited grammatical errors. 63 y/o F presents to ED today with a chief complaint of chest pain about 1 hour prior to arrival, given 324 ASA by EMS, 3-4 doses SL nitro by EMS with some relief, onset at rest. Onset and characteristics include heavy chest pain, denies URI symptoms, denies abdominal pain. Patients' medical history: Fibromyalgia, panic disorder, epigastric pain, CKD stage III, type 2 diabetes mellitus, COPD, dysrhythmia, coronary artery disease. Family and social history: former smoker. Pertinent exam findings / vital signs include benign cardiopulmonary exam, regular rate, mild tenderness in the right lower quadrant, neuro intact, nontoxic, no respiratory distress. Differential / pathologies of concern include acute coronary syndrome, PE, costochondritis, anxiety, gastritis. Diagnostic studies of: -Trop I (+3-hour Trop), CBC, CMP, lipase, magnesium, BNP, D-dimer, chest x-ray, EKG. -initial trop negative, repeat pending at sign-out -d-dimer negative -CBC benign -CMP benign -mild hypomagnesemia -lipase WNL -BNP mild elev 500 -CXR shows possible L sided infiltrate, consider PNA. -EKG shows sinus rhythm at 97 bpm with P waves followed by narrow complex QRS with normal axis deviation, good R wave progression, no ST changes of ischemia, normal QT QTc Interventions of: -none - morphine prn for increasing pain. ED Course/Assessment/Plan: Patient presents with chest pain in the setting of coronary artery disease with onset of pain 1 hour prior to arrival, was given aspirin and nitroglycerin by EMS, is a benign physical exam at this time and initial troponin is negative, D- dimer is negative indicating this is unlikely to be PE, chest x-ray shows no pneumothorax or significant pneumonia, CBC is benign, mild elevation of BNP in the setting of chronic kidney disease without evidence for pulmonary edema. Patient signed out to oncoming provider at shift-change with repeat troponin to-be-drawn. Findings not consistent with acute [place]/STEMI, not consistent with PE, possible L sided pneumonia or other infectious etiology, possible anxiety or costochondritis versus NSTEMI or acute coronary syndrome. Disposition of Chest Pain of Uncertain Etiology. Patient verbalized understanding of the plan and return to ED criteria and engaged in shared decision making. Medical Records Medical records reviewed: Yes I reviewed the patient's medical records. Imaging Data Radiologic Study: Imaging: X-Ray Radiologist's impression: EXAM: XR CHEST 2V PA LATERAL CLINICAL HISTORY: chest pain. TECHNIQUE: 2D digital imaging was performed. COMPARISON: CR XR PORTABLE CHEST AP from 07/08/2023 FINDINGS: 2 views: Heart size is upper normal. The mediastinum is not widened. Right lung is clear. There is subtle evidence of mild possible infiltrate in the left upper lobe region. This is subtle. There are no pleural effusions. No pulmonary edema. No pneumothorax. IMPRESSION: Mild increased left para-suprahilar region lung markings which may indicate subtle infiltrate.Pleural effusions. Lab Data Labs: Laboratory Tests Range/Units 07/24/23 12:58 WBC (4.4-10.8) 10^3/uL 9.42 RBC (3.93-5.22) 10^6/uL 3.59 L Hgb (11.2-15.7) g/dL 11.0 L Hct (36.0-46.0) % 33.6 L MCV (80-95) fL 94 MCH (27.0-33.0) pg 30.6 MCHC (32.0-36.0) % 32.7 RDW (11.7-14.6) % 13.8 Plt Count (130-400) 10^3/uL 273 MPV (8.0-11.0) fL 9.4 Immature Gran % 1.1 Neutrophils % 65.6 Lymphocytes % 25.2 Monocytes % 5.1 Eosinophils % 2.3 Basophils % 0.7 Nucleated RBC % (0.0-0.3) % 0.0 Absolute Neutrophils (1.2-6.7) 10^3/uL 6.18 Absolute Lymphocytes (1.2-3.4) 10^3/uL 2.37 Absolute Monocytes (0.1-0.8) 10^3/uL 0.48 Absolute Eosinophils (0.0-0.7) 10^3/uL 0.22 Absolute Basophils (0.0-0.2) 10^3/uL 0.07 D-Dimer (<500) ng/mlFEU 477 Sodium (136-145) mmol/L 144 Potassium (3.5-5.1) mmol/L 4.3 Chloride (98-107) mmol/L 109 H Carbon Dioxide (21.0-32.0) mmol/L 25.5 Anion Gap (3-11) mmol/L 9.5 BUN (7-18) mg/dL 60 H Creatinine (0.55-1.02) mg/dL 1.7 H Est GFR (CKD-EPI 2020) (mL/min/1.73m2) 33.49 Glucose (74-106) mg/dL 172 H Calcium (8.5-10.1) mg/dL 8.5 Magnesium (1.8-2.4) mg/dL 1.4 L Total Bilirubin (0.2-1.0) mg/dL 0.3 AST (15-37) U/L 11 L ALT (14-59) U/L 21 Alkaline Phosphatase (46-116) U/L 167 H Troponin I (<or=60) ng/L < 50 NT-Pro-B Natriuret Pep (<300) pg/mL 538 H Total Protein (6.4-8.2) g/dL 7.0 Albumin (3.4-5.0) g/dL 3.0 L Lipase (16-77) U/L 20 HPI General Date/Time Provider Initiated Documentation: 07/24/23 12:51 . HPI Narrative: 63 year-old female presents to ED today by EMS with a chief complaint of chest pain, history of ACS with stent and CABG with onset 1 hour prior to arrival. Quality described as chest heaviness, with shortness of breath, diaphoresis, feelings of near syncope, no radiation to cough, syncope, trauma, fever, recent URI, abdominal pain. Severity is described as 7/10. Palliating factors include 324 ASA by EMS, 3-4 nitro by EMS with some relief of chest pain. Provoking factors include nothing specific, patient was at-rest when the chest pain starting, sitting at her table eating. Patient not anticoagulated. Related Data Home Medications Medication Instructions Recorded Confirmed nitroglycerin 0.4 mg sublingual 0.4 mg sublingual PRN PRN 06/01/17 07/24/23 tablet (Nitrostat) naloxone 4 mg/actuation nasal 4 mg intranasal PRN PRN 09/10/19 07/24/23 spray (Narcan) nystatin 100,000 unit/mL oral 5 ml PO QID PRN PRN 09/10/19 07/24/23 suspension rolling walker with seat #1 ea 01/12/20 07/24/23 aspirin 81 mg tablet,delayed 81 mg PO DAILY 06/24/20 07/24/23 release cetirizine 10 mg tablet 10 mg PO DAILY 06/24/20 07/24/23 cyanocobalamin (vitamin B-12) 1,000 mcg PO DAILY 06/24/20 07/24/23 1,000 mcg tablet (Vitamin B-12) cyclobenzaprine 10 mg tablet 10 mg PO Q8H PRN PRN 06/24/20 07/24/23 dexlansoprazole 60 mg 60 mg PO DAILY 06/24/20 07/24/23 capsule,biphase delayed release (Dexilant) duloxetine 30 mg capsule,delayed 30 mg PO DAILY 06/24/20 07/24/23 release duloxetine 60 mg capsule,delayed 60 mg PO DAILY 06/24/20 07/24/23 release fluticasone propionate 50 1 spray intranasal DAILY 06/24/20 07/24/23 mcg/actuation nasal spray,suspension hydrocodone 5 mg-acetaminophen 325 1 tab PO Q8H PRN PRN 06/24/20 07/24/23 mg tablet pyridoxine (vitamin B6) 100 mg 100 mg PO DAILY 06/24/20 07/24/23 tablet docusate sodium 250 mg capsule 250 mg PO DAILY PRN 07/16/20 07/24/23 insulin aspart U-100 100 unit/mL 2 - 20 units subcut 0800,1200,1700 11/15/20 07/24/23 (3 mL) subcutaneous pen (Novolog FlexPen U-100 Insulin aspart) metoprolol succinate 25 mg 25 mg PO DAILY 01/09/21 07/24/23 tablet,extended release 24 hr bupropion HCl 150 mg tablet,12 hr 1 tab PO BID 02/07/22 07/24/23 sustained-release insulin glargine 100 unit/mL (3 30 unit subcut BID 02/10/22 07/24/23 mL) subcutaneous pen (Basaglar KwikPen U-100 Insulin) cholecalciferol (vitamin D3) 25 1,000 unit PO DAILY 02/20/23 07/24/23 mcg (1,000 unit) capsule (Vitamin D3) lidocaine 5 % topical patch 1 patch topical DAILY PRN #15 ea 02/20/23 07/24/23 (Lidoderm) magnesium citrate 100 mg capsule 100 mg PO DAILY 02/20/23 07/24/23 lorazepam 0.5 mg tablet 0.5 mg PO BID PRN 06/25/23 07/24/23 atorvastatin 80 mg tablet 40 mg PO BID 07/24/23 07/24/23 Previous Rx's Medication Instructions Recorded rolling walker with seat #1 ea 01/12/20 lidocaine 5 % topical patch 1 patch topical DAILY PRN #15 ea 02/20/23 (Lidoderm) Allergies Allergy/AdvReac Type Severity Reaction Status Date / Time quetiapine [From Seroquel] Allergy Intermediate Unverified 07/24/23 12:40 amoxicillin [From Augmentin] Allergy Unverified 07/24/23 12:40 clavulanic acid Allergy Unverified 07/24/23 12:40 [From Augmentin] Penicillins Allergy Unverified 07/24/23 12:40 Sulfa (Sulfonamide Allergy Unverified 07/24/23 12:40 Antibiotics) exenatide [From Byetta] AdvReac Intermediate diarrhea Unverified 07/24/23 12:40 metformin AdvReac Intermediate diarrhea Unverified 07/24/23 12:40 amitriptyline AdvReac made my Unverified 07/24/23 12:40 face go numb amoxicillin trihydrate AdvReac acute Unverified 07/24/23 12:40 [From Augmentin] kidney failure NSAIDS (Non-Steroidal AdvReac stage III Unverified 07/24/23 12:40 Anti-Inflamma kidney disease potassium clavulanate AdvReac acute Unverified 07/24/23 12:40 [From Augmentin] kidney failure General Stated Complaint: Chest Pain SADE: 3 Review of Systems All systems reviewed & are unremarkable except as noted in HPI and below PFSH All Active Problems (Updated 07/08/23 @ 20:12 by Liat Morales NP) Dizziness (Acute) Hyperglycemia (Acute) Acute adrenal insufficiency (Acute) URI (upper respiratory infection) (Acute) Headache (Acute) Urinary tract infection (Acute) Atypical chest pain (Acute) Hypomagnesemia (Acute) COVID-19 (Acute) Coronary artery disease (Chronic) Chest pain (Acute) CAD (coronary atherosclerotic disease) (Acute) 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 (Acute) Type 1 diabetes mellitus with diabetic polyneuropathy (Acute) Primary osteoarthritis of both first carpometacarpal joints (Acute 12/22/17) Hypertension (Chronic) Insomnia (Acute) GERD (gastroesophageal reflux disease) (Chronic) Chronic kidney disease (Chronic) COPD (chronic obstructive pulmonary disease) (Chronic) Mixed anxiety depressive disorder (Acute) Medical History Acute exacerbation of chronic obstructive airways disease Acute sinusitis Allergic rhinitis Anemia Benign neoplasm of peripheral nerve Benign neoplasm of peripheral nerves and autonomic nervous system, unspecified Cataracts, bilateral Chronic renal impairment associated with type 2 diabetes mellitus CKD stage 3 due to type 2 diabetes mellitus Colon polyp Depression Diabetes pt reports elevated HgbA1c. 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 No complications. Coronary Stent Cholecystectomy Appendectomy Family History Brother Diabetes Hypertension Heart disease Stroke Obesity Chronic headaches Arthritis Brother Arthritis Chronic headaches Diabetes Heart disease Hypertension Obesity Stroke Father Heart disease Stroke Hypertension Chronic headaches Sister Diabetes Obesity Osteoporosis Daughter Migraine Obesity Brother Arthritis Diabetes Chronic headaches Hypertension Obesity Stroke Mother Asthma Arthritis Diabetes Obesity Stroke Glaucoma Social History Smoking/Tobacco Use Status: Former Tobacco Use Quit Date: 04/13/19 Pack-years: 45 Tobacco: How many years used: 45 Quit status: considering quitting Smoking risk assessment performed?: Yes Alcohol Intake: never Drug use: Never Substance use type: does not use Details: Quit smoking 6 months ago. Household members: friend(s) Housing: apartment Number of Children: 3 number of grandchildren: 14 current occupation: none What is your relationship status?: Panel score (0-1 are the most socially isolated patients): 0 What type of physical activity do you participate in: none Do you feel safe at home: Yes Do you feel safe in your relationship?: Yes Exam Narrative Exam Narrative: GENERAL APPEARANCE: Well-nourished, non-toxic, awake and alert, atraumatic, no acute distress. SKIN: Warm, pink, dry, intact, without rashes/lesions/ulcerations. HEAD: Normocephalic, atraumatic, normal hair distribution for gender/age. EYES: Pupils PERRLA, EOMs intact without nystagmus, normal conjunctiva, no exudates on lids/lashes. ENT: Nares patent, no circumoral cyanosis, no facial swelling NECK: Supple, trachea midline, painless cervical ROM. LUNGS/CHEST: Lungs CTA bilaterally- no rhonchi/rales/wheezes diffusely, non- labored respirations, normal A/P diameter, symmetrical expansion, no chest wall deformity HEART (CV/PV): Regular rate and rhythm without murmur, no peripheral edema, no JVD. ABDOMEN: Soft, non-distended, no guarding, mild tenderness without peritoneal signs, no RUQ tenderness. MSK: Normal ROM, no swelling/deformity to bilateral UEs or LEs, moving all extremities without weakness, no cyanosis, spine midline without tenderness, normal curvature. NEURO: Mental Status AAOx4 - alert to person, place, time, events No facial droop, no forehead involvement. Motor: No focal weakness - strength 5/5 in bilateral UEs and LEs, proximal and distal, symmetric. Sensory: sensation intact to light touch globally. Gait normal: patient ambulated without ataxia into ED room. PSYCH: euthymic, cooperative, pleasant, appropriate speech Course 07/24/23 12:58 Cardiac Troponin I Stat Comprehensive Metabolic Panel Stat Lipase Stat Magnesium Stat NT-proBNP Stat D-Dimer [COAG] Stat Complete Blood Count w/Diff [HEMO] Stat 07/24/23 14:56 XR chest 2V PA & lateral [RAD] Stat 07/24/23 15:51 Cardiac Troponin I Timed Vital Signs Vital signs: Vital Signs Temperature 35.8 C L 07/24/23 12:31 Pulse 96 H 07/24/23 12:31 Respiratory Rate 15 07/24/23 12:31 Blood Pressure 127/75 07/24/23 12:31 Pulse Oximetry 99 07/24/23 12:31 Temperature 35.8 C L 07/24/23 12:31 Temperature Source Tympanic 07/24/23 12:31 Pulse 94 H 07/24/23 12:37 Pulse 96 H 07/24/23 12:37 Respiratory Rate 15 07/24/23 12:38 Respiratory Effort Normal 07/24/23 12:38 Respiratory Depth Normal 07/24/23 12:38 Respiratory Pattern Normal 07/24/23 12:38 Blood Pressure 127/75 07/24/23 12:37 Blood Pressure Mean 92 07/24/23 12:37 Blood Pressure Position Sitting 07/24/23 12:31 Pulse Oximetry 99 07/24/23 12:37 Oxygen Delivery Method Room Air 07/24/23 12:31 Oxygen Flow Rate 0 07/24/23 12:31 Pain Level 8 07/24/23 12:38 Sign Out Sign Out Data: Sign Out Comment: Pending rpt troponin, possible L sided infiltrate, if negative ACS work-up, could treat for PNA Last updated by Burton You PA at 07/24/23 15:48
[2023-07-24 13:09] LABS: Absolute Basophil Count 0.07 10^3/uL (0.0-0.2); Absolute Eosinophil Count 0.22 10^3/uL (0.0-0.7); Absolute Lymphocyte Count 2.37 10^3/uL (1.2-3.4); Absolute Monocyte Count 0.48 10^3/uL (0.1-0.8); Absolute Neutrophil Count 6.18 10^3/uL (1.2-6.7); Basophils % 0.7; Eosinophils % 2.3; HCT 33.6 % (36.0-46.0); Immature Grans % 1.1; Lymphocytes % 25.2; MCH 30.6 pg (27.0-33.0); MCHC 32.7 % (32.0-36.0); MCV 94 fL (80-95); MPV 9.4 fL (8.0-11.0); Monocytes % 5.1; Neutrophils % 65.6; Platelet Count 273 10^3/uL (130-400); RBC 3.59 10^6/uL (3.93-5.22); RDW 13.8 % (11.7-14.6); RDW-SD 47.6 fL; WBC 9.42 10^3/uL (4.4-10.8)
[2023-07-24 13:23] LABS: Lipase 20 U/L (16-77)
[2023-07-24 13:33] LABS: ALT 21 U/L (14-59); AST 11 U/L (15-37); Alkaline Phosphatase 167 U/L (46-116); Anion Gap 9.5 mmol/L (3-11); BUN 60 mg/dL (7-18); Bilirubin, Total 0.3 mg/dL (0.2-1.0); CO2 25.5 mmol/L (21.0-32.0); CREATININE 1.7 mg/dL (0.55-1.02); Calcium 8.5 mg/dL (8.5-10.1); Chloride 109 mmol/L (98-107); Estimated GFR 33.49 (mL/min/1.73m2); Glucose 172 mg/dL (74-106); Magnesium 1.4 mg/dL (1.8-2.4); NT-proBNP 538 pg/mL (<300); Potassium 4.3 mmol/L (3.5-5.1); Sodium 144 mmol/L (136-145); Troponin I < 50 ng/L (<or=60)
[2023-07-24 13:48] LABS: D-Dimer 477 ng/mlFEU (<500)
--- NOTE | 2023-07-24 14:45 | DI.RAD_ITS ---
Exam(s) XR CHEST 2V PA LATERAL EXAM: XR CHEST 2V PA LATERAL CLINICAL HISTORY: chest pain. TECHNIQUE: 2D digital imaging was performed. COMPARISON: CR XR PORTABLE CHEST AP from 07/08/2023 FINDINGS: 2 views: Heart size is upper normal. The mediastinum is not widened. Right lung is clear. There is subtle evidence of mild possible infiltrate in the left upper lobe reg ion. This is subtle. There are no pleural effusions. No pulmonary edema. No pneumothorax. IMPRESSION: Mild increased left para-suprahilar region lung markings which may indicate subtle infiltrate.Pleural effusions. DATA REPOSITORY: RADIATION DOSE DELIVERED:
--- NOTE | 2023-07-24 16:45 | RT.EKG_ITS ---
APPROVED REPORT Exam: Resting ECG Reason for Exam: repeat EKG Patient Location: E HR:85 bpm ECG Measurements Heart Rate 85 AXIS NC 199 P -13 QRSd 79 QRS -5 QT 383 T 43 QTc 456 Conclusion Sinus rhythm...normal P axis, V-rate 60- 99 Low voltage, precordial leads...precordial leads <1.0mV sinus rhythm, left axis, normal intervals non ischemic
[2023-07-24 17:06] LABS: Troponin I < 50 ng/L (<or=60)
== END 2023-07-24 17:41 | disposition home or self-care (01) ==
PROVIDERS: Physician Assistant; Emergency Provider Physician Assistant; PCP Nurse Practitioner Family
DX: R07.89 Other chest pain (principal); E11.22 Type 2 diabetes mellitus with diabetic chronic kidney disease; I12.9 Hypertensive chronic kidney disease with stage 1 through stage 4 chronic kidney disease, or unspecified chronic kidney disease; N18.30 Chronic kidney disease, stage 3 unspecified; E11.3599 Type 2 diabetes mellitus with proliferative diabetic 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 edema, unspecified eye; E78.5 Hyperlipidemia, unspecified; I25.10 Atherosclerotic heart disease of native coronary artery without angina pectoris; Z79.4 Long term (current) use of insulin; Z79.82 Long term (current) use of aspirin
CPT/HCPCS: 36415; 80053; 83690; 93005; 99283; 71046; 83735; 83880; 84484; 85025; 85379; 93010

== ENCOUNTER 2023-09-07 12:41 | Emergency (ER) | payer OTHER, MEDICAID, SELFPAY ==
[2023-09-07] VITALS (22 sets, daily range): BP systolic 95–158; BP diastolic 58–137; PULSE 82–96; RESP 10–26; TEMP 36.6; O2SAT 98–100
--- NOTE | 2023-09-07 12:30 | RT.EKG_ITS ---
APPROVED REPORT Exam: Resting ECG Reason for Exam: Dizzyness Patient Location: E HR:88 bpm ECG Measurements Heart Rate 88 AXIS [place] 184 P -22 QRSd 75 QRS -13 QT 380 T 28 QTc 459 Conclusion Sinus rhythm...normal P axis, V-rate 60- 99 Low voltage, extremity leads...all extremity leads <0.5mV Consider anterior infarct...Q >30mS in V2-V5 Narrow complex normal sinus rhythm at a rate of 88. Left axis deviation no signs of LVH. Poor R wav e progression. No ST segment abnormalities. T wave flattening in V3. Low voltage. Compared to rosangela or dated last year appears similar. No acute injury pattern.
[2023-09-07 13:27] LABS: Abs Immature Grans 0.06 10^3/uL (0.0-0.06); Absolute Basophil Count 0.08 10^3/uL (0.0-0.2); Absolute Eosinophil Count 0.33 10^3/uL (0.0-0.7); Absolute Lymphocyte Count 2.22 10^3/uL (1.2-3.4); Absolute Monocyte Count 0.56 10^3/uL (0.1-0.8); Absolute Neutrophil Count 6.01 10^3/uL (1.2-6.7); Basophils % 0.9; Eosinophils % 3.6; HCT 34.4 % (36.0-46.0); HGB 11.5 g/dL (11.2-15.7); Immature Grans % 0.6; MCH 30.7 pg (27.0-33.0); MCHC 33.4 % (32.0-36.0); MCV 92 fL (80-95); MPV 9.3 fL (8.0-11.0); Neutrophils % 64.9; Platelet Count 288 10^3/uL (130-400); RBC 3.74 10^6/uL (3.93-5.22); RDW-SD 43.2 fL; WBC 9.26 10^3/uL (4.4-10.8)
[2023-09-07] MEDS: Normal Saline 500 ML IV (13:28)
--- NOTE | 2023-09-07 13:45 | DI.RAD_ITS ---
Exam(s) XR CHEST 2V PA LATERAL EXAM: XR CHEST 2V PA LATERAL CLINICAL HISTORY: dizziness. TECHNIQUE: 2D digital imaging was performed. COMPARISON: CR,XR XR CHEST 2V PA LATERAL from 05/19/2023 CR XR PORTABLE CHEST AP from 07/08/2023 CR XR CHEST 2V PA LATERAL from 07/24/2023 FINDINGS: 2 views: There are chest leads in place. Heart size is normal. The mediastinum is not widened. There appears to be a left coronary artery stent. There is a bilateral interstitial pattern which was not evident in April 2023. The subtle left l deena infiltrate described on the image of 07/24/2023 is less evident on the present study. No obvious pleural effusions. IMPRESSION: Increased interstitial pattern in both lung coyne without pleural effusions. Normal heart size but with what appears to be a coronary artery stent.No Bijal B lines evident. Nevertheless cannot exclu de early pulmonary edema despite relatively normal heart size. Correlation with clinical findings recommended. DATA REPOSITORY: RADIATION DOSE DELIVERED:
[2023-09-07 13:57] LABS: ALT 20 U/L (14-59); AST 16 U/L (15-37); Albumin 3.1 g/dL (3.4-5.0); Alkaline Phosphatase 87 U/L (46-116); BUN 35 mg/dL (7-18); Bilirubin, Total 0.4 mg/dL (0.2-1.0); CREATININE 1.6 mg/dL (0.55-1.02); Calcium 8.9 mg/dL (8.5-10.1); Chloride 103 mmol/L (98-107); Estimated GFR 36.01 (mL/min/1.73m2); Glucose 184 mg/dL (74-106); Magnesium 1.4 mg/dL (1.8-2.4); Potassium 4.3 mmol/L (3.5-5.1); Sodium 140 mmol/L (136-145); TSH (W/Ref FT4) 5.29 uIU/mL (0.36-3.74); Total Protein 6.8 g/dL (6.4-8.2)
[2023-09-07 14:15] LABS: FREE T4 1.08 ng/dL (0.76-1.46)
[2023-09-07] MEDS: MAGNESIUM SULFATE 1 GM/100 ML BAG IVPB ×2 (14:36→15:34)
--- NOTE | 2023-09-07 14:47 | ED.GENADUL_ITS ---
HPI <WHIT Humphries - Last Filed: 09/08/23 17:32> General Stated Complaint: Dizzy/Sync SADE: 3 Date/Time Provider Initiated Documentation: 09/07/23 12:45. HPI Narrative: This 63-year-old female presents with report lightheadedness on standing today. [place] fine while seated. States that her blood pressure was slightly low at home. She states this happened before with dehydration but states she has been eating and drinking within normal limits. Denies any chest pain or shortness of breath. Denies any dizziness. Denies any weight gain, calf swelling. States she took all of her medications today. Did not eat today but states she normally does not eat until dinner. Denies any fever or chills. [place] fine yesterday. Denies any new medications. Denies any falls or injuries. States at rest she is asymptomatic. Related Data Home Medications Medication Instructions Recorded Confirmed nitroglycerin 0.4 mg sublingual 0.4 mg sublingual PRN PRN 06/01/17 09/07/23 tablet (Nitrostat) naloxone 4 mg/actuation nasal 4 mg intranasal PRN PRN 09/10/19 09/07/23 spray (Narcan) nystatin 100,000 unit/mL oral 5 ml PO QID PRN PRN 09/10/19 09/07/23 suspension rolling walker with seat #1 ea 01/12/20 09/07/23 aspirin 81 mg tablet,delayed 81 mg PO DAILY 06/24/20 09/07/23 release cetirizine 10 mg tablet 10 mg PO DAILY 06/24/20 09/07/23 cyanocobalamin (vitamin B-12) 1,000 mcg PO DAILY 06/24/20 09/07/23 1,000 mcg tablet (Vitamin B-12) cyclobenzaprine 10 mg tablet 10 mg PO Q8H PRN PRN 06/24/20 09/07/23 dexlansoprazole 60 mg 60 mg PO DAILY 06/24/20 09/07/23 capsule,biphase delayed release (Dexilant) duloxetine 30 mg capsule,delayed 60 mg PO DAILY 06/24/20 09/07/23 release duloxetine 60 mg capsule,delayed 60 mg PO DAILY 06/24/20 09/07/23 release fluticasone propionate 50 1 spray intranasal DAILY 06/24/20 09/07/23 mcg/actuation nasal spray,suspension hydrocodone 5 mg-acetaminophen 325 1 tab PO Q8H PRN PRN 06/24/20 09/07/23 mg tablet pyridoxine (vitamin B6) 100 mg 100 mg PO DAILY 06/24/20 09/07/23 tablet docusate sodium 250 mg capsule 250 mg PO DAILY PRN 07/16/20 09/07/23 insulin aspart U-100 100 unit/mL 2 - 20 units subcut 0800,1200,1700 11/15/20 09/07/23 (3 mL) subcutaneous pen (Novolog FlexPen U-100 Insulin aspart) metoprolol succinate 25 mg 25 mg PO DAILY 01/09/21 09/07/23 tablet,extended release 24 hr bupropion HCl 150 mg tablet,12 hr 1 tab PO BID 02/07/22 09/07/23 sustained-release insulin glargine 100 unit/mL (3 30 unit subcut BID 02/10/22 09/07/23 mL) subcutaneous pen (Basaglar KwikPen U-100 Insulin) cholecalciferol (vitamin D3) 25 1,000 unit PO DAILY 02/20/23 09/07/23 mcg (1,000 unit) capsule (Vitamin D3) lidocaine 5 % topical patch 1 patch topical DAILY PRN #15 ea 02/20/23 09/07/23 (Lidoderm) magnesium citrate 100 mg capsule 100 mg PO DAILY 02/20/23 09/07/23 lorazepam 0.5 mg tablet 0.5 mg PO BID PRN 06/25/23 09/07/23 atorvastatin 80 mg tablet 40 mg PO BID 07/24/23 09/07/23 clopidogrel 75 mg tablet 75 mg PO DAILY 09/07/23 09/07/23 fexofenadine 180 mg tablet 180 mg PO DAILY 09/07/23 09/07/23 (Daisy Allergy) magnesium 250 mg tablet 250 mg PO DAILY 09/07/23 09/07/23 magnesium oxide 400 mg (241.3 mg 400 mg PO DAILY 09/07/23 09/07/23 magnesium) tablet metoprolol tartrate 25 mg tablet 12.5 mg PO BID 09/07/23 09/07/23 Previous Rx's Medication Instructions Recorded rolling walker with seat #1 ea 01/12/20 lidocaine 5 % topical patch 1 patch topical DAILY PRN #15 ea 02/20/23 (Lidoderm) Allergies Allergy/AdvReac Type Severity Reaction Status Date / Time quetiapine [From Seroquel] Allergy Intermediate Unverified 09/07/23 15:27 amoxicillin [From Augmentin] Allergy Unverified 09/07/23 15:27 clavulanic acid Allergy Unverified 09/07/23 15:27 [From Augmentin] Penicillins Allergy Unverified 09/07/23 15:27 Sulfa (Sulfonamide Allergy Unverified 09/07/23 15:27 Antibiotics) exenatide [From [place]etta] AdvReac Intermediate diarrhea Unverified 09/07/23 15:27 metformin AdvReac Intermediate diarrhea Unverified 09/07/23 15:27 amitriptyline AdvReac made my Unverified 09/07/23 15:27 face go numb amoxicillin trihydrate AdvReac acute Unverified 09/07/23 15:27 [From Augmentin] kidney failure NSAIDS (Non-Steroidal AdvReac stage III Unverified 09/07/23 15:27 Anti-Inflamma kidney disease potassium clavulanate AdvReac acute Unverified 09/07/23 15:27 [From Augmentin] kidney failure PFSH <WHIT Humphries - Last Filed: 09/08/23 17:32> All Active Problems (Updated 09/07/23 @ 15:30 by WHIT Humphries) Hypomagnesemia (Acute) Light-headed feeling (Acute) UTI (urinary tract infection) (Acute) Hyperglycemia (Acute) Acute adrenal insufficiency (Acute) URI (upper respiratory infection) (Acute) Headache (Acute) Urinary tract infection (Acute) Atypical chest pain (Acute) Hypomagnesemia (Acute) COVID-19 (Acute) Coronary artery disease (Chronic) Chest pain (Acute) CAD (coronary atherosclerotic disease) (Acute) 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 (Acute) Type 1 diabetes mellitus with diabetic polyneuropathy (Acute) Primary osteoarthritis of both first carpometacarpal joints (Acute 12/22/17) Hypertension (Chronic) Insomnia (Acute) GERD (gastroesophageal reflux disease) (Chronic) Chronic kidney disease (Chronic) COPD (chronic obstructive pulmonary disease) (Chronic) Mixed anxiety depressive disorder (Acute) Medical History Acute exacerbation of chronic obstructive airways disease Acute sinusitis Allergic rhinitis Anemia Benign neoplasm of peripheral nerve Benign neoplasm of peripheral nerves and autonomic nervous system, unspecified Cataracts, bilateral Chronic renal impairment associated with type 2 diabetes mellitus CKD stage 3 due to type 2 diabetes mellitus Colon polyp Depression Diabetes pt reports elevated HgbA1c. 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 No complications. Coronary Stent Cholecystectomy Appendectomy Family History Brother Diabetes Hypertension Heart disease Stroke Obesity Chronic headaches Arthritis Brother Arthritis Chronic headaches Diabetes Heart disease Hypertension Obesity Stroke Father Heart disease Stroke Hypertension Chronic headaches Sister Diabetes Obesity Osteoporosis Daughter Migraine Obesity Brother Arthritis Diabetes Chronic headaches Hypertension Obesity Stroke Mother Asthma Arthritis Diabetes Obesity Stroke Glaucoma Social History Smoking/Tobacco Use Status: Former Tobacco Use Quit Date: 04/13/19 Pack-years: 45 Tobacco: How many years used: 45 Quit status: considering quitting Smoking risk assessment performed?: Yes Alcohol Intake: never Drug use: Never Substance use type: does not use Details: Quit smoking 6 months ago. Household members: friend(s) Housing: apartment Number of Children: 3 number of grandchildren: 14 current occupation: none What is your relationship status?: Panel score (0-1 are the most socially isolated patients): 0 What type of physical activity do you participate in: none Do you feel safe at home: Yes Do you feel safe in your relationship?: Yes Course <WHIT Humphries - Last Filed: 09/08/23 17:32> Vital Signs Vital signs: Vital Signs Temperature 36.6 C 09/07/23 12:44 Pulse 89 09/07/23 12:44 Respiratory Rate 18 09/07/23 12:44 Blood Pressure 107/58 L 09/07/23 12:44 Pulse Oximetry 98 09/07/23 12:44 Temperature 36.6 C 09/07/23 12:44 Temperature Source Temporal Artery Scan 09/07/23 12:44 Pulse 84 09/07/23 14:01 Pulse 85 09/07/23 14:02 Respiratory Rate 15 09/07/23 14:02 Respiratory Effort Normal, Non-Labored 09/07/23 13:23 Respiratory Depth Normal 09/07/23 13:23 Respiratory Pattern Normal 09/07/23 13:23 Blood Pressure 126/75 09/07/23 14:01 Blood Pressure Mean 91 09/07/23 14:01 Blood Pressure Position Supine 09/07/23 12:44 Pulse Oximetry 98 09/07/23 12:44 Oxygen Delivery Method Room Air 09/07/23 12:44 Oxygen Flow Rate 0 09/07/23 12:44 Lab/Test Results Lab/Test Results: Laboratory Tests Range/Units 09/07/23 13:22 WBC (4.4-10.8) 10^3/uL 9.26 RBC (3.93-5.22) 10^6/uL 3.74 L Hgb (11.2-15.7) g/dL 11.5 Hct (36.0-46.0) % 34.4 L MCV (80-95) fL 92 MCH (27.0-33.0) pg 30.7 MCHC (32.0-36.0) % 33.4 RDW (11.7-14.6) % 13.0 Plt Count (130-400) 10^3/uL 288 MPV (8.0-11.0) fL 9.3 Immature Gran % 0.6 Neutrophils % 64.9 Lymphocytes % 24.0 Monocytes % 6.0 Eosinophils % 3.6 Basophils % 0.9 Nucleated RBC % (0.0-0.3) % 0.0 Absolute Neutrophils (1.2-6.7) 10^3/uL 6.01 Absolute Lymphocytes (1.2-3.4) 10^3/uL 2.22 Absolute Monocytes (0.1-0.8) 10^3/uL 0.56 Absolute Eosinophils (0.0-0.7) 10^3/uL 0.33 Absolute Basophils (0.0-0.2) 10^3/uL 0.08 Sodium (136-145) mmol/L 140 Potassium (3.5-5.1) mmol/L 4.3 Chloride (98-107) mmol/L 103 Carbon Dioxide (21.0-32.0) mmol/L 29.0 Anion Gap (3-11) mmol/L 8.0 BUN (7-18) mg/dL 35 H Creatinine (0.55-1.02) mg/dL 1.6 H Est GFR (CKD-EPI 2020) (mL/min/1.73m2) 36.01 Glucose (74-106) mg/dL 184 H Calcium (8.5-10.1) mg/dL 8.9 Magnesium (1.8-2.4) mg/dL 1.4 L Total Bilirubin (0.2-1.0) mg/dL 0.4 AST (15-37) U/L 16 ALT (14-59) U/L 20 Alkaline Phosphatase (46-116) U/L 87 Total Protein (6.4-8.2) g/dL 6.8 Albumin (3.4-5.0) g/dL 3.1 L TSH (0.36-3.74) uIU/mL 5.29 H Free T4 (0.76-1.46) ng/dL 1.08 Medical Decision Making <WHIT Humphries - Last Filed: 09/08/23 17:32> This 63-year-old female presents with lightheadedness when she awoke this mor mary. [place] fine yesterday, denies any new medications. Alert, oriented, of decisional capacity Currently receiving 12 intact, neurovascularly intact, cardiac rate rhythm regular, lungs clear to auscultation bilaterally pupils equal round reactive to light and accommodation, states her blood pressure was slightly low at home, states this does happen with dehydration in the past with feels as though she has been eating and drinking well. She does endorse that she does not eat or drink during the day typically. She has not had anything to eat today, states is not unusual. Denies any falls or injuries. Patient is alert and oriented, she is at her baseline, her blood pressure is low normal at time of assessment, after 500 cc bolus, blood pressures 126/52, she is hypomagnesemic, her magnesium is 1.4, will give 1 to 2 g of magnesium and reassess She is not orthostatic Her labs are reassuring for her in fact her creatinine is improved since her last assessment She is pending urinalysis at this time Patient will likely be discharged home, care is transitioned to [place], [employer] pending reassessment and dispo 1600-signout received from Tea SHERMAN. Please see initial documentation for presentation, physical exam findings, review of systems, and initial workup. Patient signed out to me pending completion of fluids ambulatory trial and reassessment. Patient was reassessed and was able to ambulate, had no further lightheadedness or syncopal type sensations, stated that she felt safe for discharge and significantly improved. Patient is overall stable in appearance with no significant worsening of symptoms. Given this I do feel the patient is appropriate for discharge and follow-up with primary care provider. After discussion of diagnosis and plan of care patient has no further needs, questions, or concerns and states clear understanding to return to the emergency department for any worsening symptoms. This documentation was generated using [employer] dictation system, please disregard any oddities of phrase or misspellings. Quality:SDOH Health Related Social Needs: No Data to Display <Teofilo Ace NP - Last Filed: 09/07/23 22:35> This 63-year-old female presents with lightheadedness when she awoke this morning. [place] fine yesterday, denies any new medications. States her blood pressure was slightly low at home, states this does happen with dehydration in the past with feels as though she has been eating and drinking well. She does endorse that she does not eat or drink during the day typically. She has not had anything to eat today, states is not unusual. Denies any falls or injuries. Patient is alert and oriented, she is at her baseline, her blood pressure is low normal at time of assessment, after 500 cc bolus, blood pressures 126/52, she is hypomagnesemic, her magnesium is 1.4, will give 1 to 2 g of magnesium and reassess She is not orthostatic Her labs are reassuring for her in fact her creatinine is improved since her last assessment She is pending urinalysis at this time 1600-signout received from Tea SHERMAN. Please see initial documentation for presentation, physical exam findings, review of systems, and initial workup. Patient signed out to me pending completion of fluids ambulatory trial and reassessment. Patient was reassessed and was able to ambulate, had no further lightheadedness or syncopal type sensations, stated that she felt safe for discharge and significantly improved. Patient is overall stable in appearance with no significant worsening of symptoms. Given this I do feel the patient is appropriate for discharge and follow-up with primary care provider. After discussion of diagnosis and plan of care patient has no further needs, questions, or concerns and states clear understanding to return to the emergency department for any worsening symptoms. This documentation was generated using [employer] dictation system, please disregard any oddities of phrase or misspellings. Sign Out <WHIT Humphries - Last Filed: 09/08/23 17:32> Sign Out Data: Sign Out Comment: pending 1 L of crystalloids, 2 g of mag, repeat BP, amb trial and likely dc Last updated by Tea Huang PA at 09/07/23 15:49 Discharge Plan Disposition Patient Disposition: Home Discharge Details Clinical Impression: UTI (urinary tract infection), Light-headed feeling, Hypomagnesemia Primary Care Provider: Jeny Almonte ED Provider: Teofilo Ace Home Meds and New Rx's Prescriptions: Continued nystatin 100,000 unit/mL Suspension 5 ml PO QID PRN PRN naloxone [Narcan] 4 mg/actuation [place],Non-Aerosol 4 mg INTRANASAL PRN PRN (DME) rolling walker with seat Qty: 1 0RF Rx Instructions: As directed with ambulation metoprolol succinate 25 mg tablet extended release 24 hr 25 mg PO DAILY Patient Comments: 12.5 am 12.5pm insulin aspart U-100 [Novolog FlexPen U-100 Insulin] 300 UNITS/3 ML insulin pen 2 - 20 units Sub-Q 0800,1200,1700 Rx Instructions: Dispense one pen see sliding scale bupropion HCl 150 mg tablet sustained-release 12 hr 1 tab PO BID Patient Comments: TAKE ONE TABLET BY MOUTH TWICE A DAY lorazepam 0.5 mg tablet 0.5 mg PO BID PRN Patient Comments: TAKE ONE TABLET BY MOUTH EVERY 6 HOURS NEEDED FOR ANXIETY nitroglycerin [Nitrostat] 0.4 MG tablet, sublingual 0.4 mg Sublingual PRN PRN cyclobenzaprine 10 mg tablet 10 mg PO Q8H PRN PRN cetirizine 10 mg tablet 10 mg PO DAILY Patient Comments: no longer taking 05/19/23 MG hydrocodone-acetaminophen 5-325 mg tablet 1 tab PO Q8H PRN PRN Patient Comments: TAKE ONE TABLET BY MOUTH EVERY 6 TO 8 HOURS NEEDED cyanocobalamin (vitamin B-12) [Vitamin B-12] 1,000 mcg tablet 1,000 mcg PO DAILY Patient Comments: no longer taking 05/19/23 MG aspirin 81 mg tablet,delayed release (DR/EC) 81 mg PO DAILY Patient Comments: TAKE ONE TABLET BY MOUTH EVERY DAY pyridoxine (vitamin B6) 100 mg tablet 100 mg PO DAILY Patient Comments: no longer taking, insurance will not pay for 05/19/23 fluticasone propionate 50 mcg/actuation spray,suspension 1 spray INTRANASAL DAILY Patient Comments: INSTILL 2 SPRAYS NASALLY DAILY duloxetine 30 mg capsule,delayed release(DR/EC) 60 mg PO DAILY Patient Comments: TAKE ONE CAPSULE BY MOUTH EVERY DAY WITH 60MG duloxetine 60 mg capsule,delayed release(DR/EC) 60 mg PO DAILY Patient Comments: TAKE ONE CAPSULE BY MOUTH EVERY DAY dexlansoprazole [Dexilant] 60 mg capsule,biphase delayed releas 60 mg PO DAILY Patient Comments: No longer taking 05/19/23 MG docusate sodium 250 mg Capsule 250 mg PO DAILY PRN insulin glargine [Basaglar KwikPen U-100 Insulin] 100 unit/mL (3 mL) insulin pen 30 unit SUBCUT BID Patient Comments: INJECT 60 UNITS SUBCUTANEOUSLY ONCE DAILY (30 UNITS EVERY MORNING AND 30 UNITS QPM) cholecalciferol (vitamin D3) [Vitamin D3] 25 mcg (1,000 unit) capsule 1,000 unit PO DAILY Patient Comments: no longer taking 05/19/23 MG magnesium citrate 100 mg Capsule 100 mg PO DAILY lidocaine [Lidoderm] 5 % adhesive patch,medicated 1 patch topical DAILY PRNQty: 15 0RF Rx Instructions: leave on most painful area for up to 12 hrs atorvastatin 80 mg tablet 40 mg PO BID Patient Comments: TAKE ONE TABLET AB BY MOUTH DAILY (cuts tab in half, takes morning and night to reduce side effects) clopidogrel 75 mg tablet 75 mg PO DAILY Patient Comments: TAKE ONE TABLET AB BY MOUTH DAILY metoprolol tartrate 25 mg tablet 12.5 mg PO BID fexofenadine [Daisy Allergy] 180 mg tablet 180 mg PO DAILY magnesium oxide 400 mg (241.3 mg magnesium) tablet 400 mg PO DAILY Patient Comments: TAKE ONE TABLET BY MOUTH THREE TIMES A DAY No Action magnesium 250 mg tablet 250 mg PO DAILY Discharge Instructions Instructions: Urinary Tract Infection in Women (ED), Hypomagnesemia (ED) Additional Instructions: You have a urinary tract infection you have been treated with fosfomycin, please your doctor on Friday for reassessment Hold your metoprolol tonight and do not resume your metoprolol until you recheck your blood pressure and it is greater than 120/50 Take 800 mg of your magnesium for the next several days and have your levels rechecked at the discretion of your doctor Use caution when going from sitting to standing, have at least eight 8 ounce glasses of fluid daily and try to eat 3 meals a day if you are able to Referrals: Jeny Almonte [Primary Care Provider] - 2 days Discharge Data Discharge Date/Time-TO BE ENTERED AT DEPARTURE: 09/07/23 17:55
--- NOTE | 2023-09-07 14:51 | DI.VRAD_ITS ---
PROCEDURE INFORMATION: Exam: XR Chest Exam date and time: 09/07/2023 2:16 PM Age: 63 years old Clinical indication: Other: Dizzy TECHNIQUE: Imaging protocol: Radiologic exam of the chest. Views: 2 views. COMPARISON: CR XR CHEST 2V PA LATERAL 07/24/2023 3:19 PM FINDINGS: Lungs: Unremarkable. No consolidation. Pleural spaces: Unremarkable. No pleural effusion. No pneumothorax. Heart/Mediastinum: Unremarkable. No cardiomegaly. Bones/joints: Unremarkable. IMPRESSION: No acute findings. Dictated and Authenticated by: Nanette Navarro MD. Ordering:LULY Metcalf MD
[2023-09-07 15:03] LABS: Bilirubin Negative (Negative); Blood Negative (Negative); Clarity Sl Cloudy (Clear); Glucose Negative (Negative); Ketones Negative (Negative); Leukocyte Esterase Moderate (Negative); Nitrite Positive (Negative); Urobilinogen 0.2 mg/dL (Up to 0.2); pH 5.5 (5-8)
[2023-09-07 15:11] LABS: Epithelial Cells Many HPF (Negative); RBC 0-2 HPF (0-2); WBC 20-50 HPF (0-5)
[2023-09-07 15:12] LABS: Bacteria Many HPF (Negative); C & S Indicated? No/Sq. Contamination; Crystals Negative HPF (Negative); Mucus Trace (Negative); Other Cells Rare Transitional (Negative)
[2023-09-07] MEDS: Fosfomycin Tromethamine 3 GM PACKET PO (15:34)
== END 2023-09-07 17:55 | disposition home or self-care (01) ==
PROVIDERS: Physician Assistant; Emergency Provider Nurse Practitioner Family; PCP Nurse Practitioner Family
DX: R42 Dizziness and giddiness (principal); R03.1 Nonspecific low blood-pressure reading; N39.0 Urinary tract infection, site not specified; E83.42 Hypomagnesemia
CPT/HCPCS: 36415; 80053; 93005; 96361; 96365; 96366; 99284; 71046; 81003; 81015; 83735; 84439; 84443; 85025; 93010; 99283; J3475; J3490

== ENCOUNTER 2023-09-17 19:16 | Emergency (ER) | payer OTHER, MEDICAID, SELFPAY ==
[2023-09-17] VITALS (33 sets, daily range): BP systolic 92–135; BP diastolic 35–80; PULSE 98–122; RESP 13–28; TEMP 36.5
--- NOTE | 2023-09-17 19:00 | RT.EKG_ITS ---
APPROVED REPORT Exam: Resting ECG Reason for Exam: SOB Patient Location: E HR:109 bpm ECG Measurements Heart Rate 109 AXIS WY 167 P 43 QRSd 77 QRS -23 QT 340 T 47 QTc 459 Conclusion Sinus tachycardia...rate> 99 Inferior infarct, old...Q >35mS, II III aVF Anterior infarct, old...Q >40mS, abnormal ST-T, V2-V5 There are no significant changes compared to prior EKG performed on 09/07/2023 at 12:50.
--- NOTE | 2023-09-17 19:21 | W.ED.GENAD ---
HPI General Mode of arrival: EMS. Date/Time Provider Initiated Documentation: 09/17/23 19:21. Limitations to Documentation: no limitations. Information obtained by: patient. HPI Narrative: Presents by EMS for complaints of lightheadedness and low blood pressure. States she has been adjusting medications outpatient and not taking her lopressor. she states she has been eating and drinking normally with no fever, chest pain, shortness of breath, abdominal pain or other c/o. voiding well and bowel movement at baseline. reports her roommate has an upper resp illness Related Data Home Medications Medication Instructions Recorded Confirmed nitroglycerin 0.4 mg sublingual 0.4 mg sublingual PRN PRN 06/01/17 09/17/23 tablet (Nitrostat) naloxone 4 mg/actuation nasal 4 mg intranasal PRN PRN 09/10/19 09/17/23 spray (Narcan) nystatin 100,000 unit/mL oral 5 ml PO QID PRN PRN 09/10/19 09/17/23 suspension rolling walker with seat #1 ea 01/12/20 09/07/23 aspirin 81 mg tablet,delayed 81 mg PO DAILY 06/24/20 09/17/23 release cetirizine 10 mg tablet 10 mg PO DAILY 06/24/20 09/17/23 cyanocobalamin (vitamin B-12) 1,000 mcg PO DAILY 06/24/20 09/17/23 1,000 mcg tablet (Vitamin B-12) cyclobenzaprine 10 mg tablet 10 mg PO Q8H PRN PRN 06/24/20 09/17/23 dexlansoprazole 60 mg 60 mg PO DAILY 06/24/20 09/17/23 capsule,biphase delayed release (Dexilant) duloxetine 30 mg capsule,delayed 60 mg PO DAILY 06/24/20 09/17/23 release duloxetine 60 mg capsule,delayed 60 mg PO DAILY 06/24/20 09/17/23 release fluticasone propionate 50 1 spray intranasal DAILY 06/24/20 09/17/23 mcg/actuation nasal spray,suspension hydrocodone 5 mg-acetaminophen 325 1 tab PO Q8H PRN PRN 06/24/20 09/17/23 mg tablet pyridoxine (vitamin B6) 100 mg 100 mg PO DAILY 06/24/20 09/17/23 tablet docusate sodium 250 mg capsule 250 mg PO DAILY PRN 07/16/20 09/17/23 insulin aspart U-100 100 unit/mL 2 - 20 units subcut 0800,1200,1700 11/15/20 09/17/23 (3 mL) subcutaneous pen (Novolog FlexPen U-100 Insulin aspart) bupropion HCl 150 mg tablet,12 hr 1 tab PO BID 02/07/22 09/17/23 sustained-release insulin glargine 100 unit/mL (3 30 unit subcut BID 02/10/22 09/17/23 mL) subcutaneous pen (Basaglar KwikPen U-100 Insulin) cholecalciferol (vitamin D3) 25 1,000 unit PO DAILY 02/20/23 09/17/23 mcg (1,000 unit) capsule (Vitamin D3) lidocaine 5 % topical patch 1 patch topical DAILY PRN #15 ea 02/20/23 09/17/23 (Lidoderm) magnesium citrate 100 mg capsule 100 mg PO DAILY 02/20/23 09/17/23 lorazepam 0.5 mg tablet 0.5 mg PO BID PRN 06/25/23 09/17/23 atorvastatin 80 mg tablet 40 mg PO BID 07/24/23 09/17/23 clopidogrel 75 mg tablet 75 mg PO DAILY 09/07/23 09/17/23 fexofenadine 180 mg tablet 180 mg PO DAILY 09/07/23 09/17/23 (Daisy Allergy) magnesium 250 mg tablet 250 mg PO DAILY 09/07/23 09/17/23 magnesium oxide 400 mg (241.3 mg 400 mg PO DAILY 09/07/23 09/17/23 magnesium) tablet metoprolol tartrate 25 mg tablet 12.5 mg PO BID 09/07/23 09/17/23 lisinopril 2.5 mg tablet 2.5 mg PO DAILY 09/17/23 09/17/23 Previous Rx's Medication Instructions Recorded rolling walker with seat #1 mariely 01/12/20 lidocaine 5 % topical patch 1 patch topical DAILY PRN #15 ea 02/20/23 (Lidoderm) Allergies Allergy/AdvReac Type Severity Reaction Status Date / Time quetiapine [From Seroquel] Allergy Intermediate Unverified 09/17/23 21:23 amoxicillin [From Augmentin] Allergy Unverified 09/17/23 21:23 clavulanic acid Allergy Unverified 09/17/23 21:23 [From Augmentin] Penicillins Allergy Unverified 09/17/23 21:23 Sulfa (Sulfonamide Allergy Unverified 09/17/23 21:23 Antibiotics) exenatide [From [place]] AdvReac Intermediate diarrhea Unverified 09/17/23 21:23 metformin AdvReac Intermediate diarrhea Unverified 09/17/23 21:23 amitriptyline AdvReac made my Unverified 09/17/23 21:23 face go numb amoxicillin trihydrate AdvReac acute Unverified 09/17/23 21:23 [From Augmentin] kidney failure NSAIDS (Non-Steroidal AdvReac stage III Unverified 09/17/23 21:23 Anti-Inflamma kidney disease potassium clavulanate AdvReac acute Unverified 09/17/23 21:23 [From Augmentin] kidney failure General Stated Complaint: Dizzy/Sync SADE: 3 Review of Systems All systems reviewed & are unremarkable except as noted in HPI and below Exam Const General: no acute distress and ill appearing chronically Nutritional Appearance: obese Orientation: alert, awake and oriented x3 HENMT Head: normal to inspection, normocephalic and atraumatic Mouth: moist mucous membranes abnormal (dry) Eyes General: appearance normal, both eyes and all related structures Neck Neck: normal visual inspection Chest Chest: normal inspection of the chest Resp Effort & Inspection: normal respiratory effort and able to speak in complete sentences Cardio Rate: tachycardic GI Inspection: normal to inspection Skin General skin exam: petechiae (upper extermities, also has various scattered bruising) Rashes: no rashes Neuro General: patient alert, patient awake and patient oriented x3 Motor: muscle tone normal throughout Extrem General: normal to inspection Psych Mental Status: mental status grossly normal Course Vital Signs Vital signs: Vital Signs Temperature 36.5 C 09/17/23 19:16 Pulse 112 H 09/17/23 19:16 Respiratory Rate 16 09/17/23 19:16 Blood Pressure 106/35 L 09/17/23 19:16 Temperature 36.5 C 09/17/23 19:16 Temperature Source Oral 09/17/23 19:16 Pulse 112 H 09/17/23 19:16 Respiratory Rate 16 09/17/23 19:16 Blood Pressure 106/35 L 09/17/23 19:16 Blood Pressure Position Supine 09/17/23 19:16 Oxygen Delivery Method Room Air 09/17/23 19:16 Oxygen Flow Rate 0 09/17/23 19:16 Pain Level 0 09/17/23 19:16 Medical Decision Making Presents by EMS for complaints of dizziness and low blood pressure. She has been adjusting her medications outpatient and has been holding her Metroprolol but is taking her lisinopril which she did take today. EMS found her to be tachycardic in the 110s she tells me that she is always tachycardic. Orthostatic vital signs have been obtained and are unremarkable. She is asymptomatic during Will obtain IV access check basic labs including CBC CMP magnesium and urinalysis. Will give IV fluid bolus and monitor her on telemetry for any dysrhythmias patient remains hemodynamically stable with no dysrhythmia, safely re-ambulated. she is stable for discharge to home. advised to monitor blood pressure and call pcp in am Medical Records Medical records reviewed: Yes I reviewed the patient's medical records. Lab Data Lab results reviewed: Yes I reviewed the patient's lab results. Lab results narrative: Laboratory Results - last 24 hr 09/17/23 09/17/23 09/17/23 19:23 19:50 21:40 WBC 9.75 RBC 4.04 Hgb 12.3 Hct 37.3 MCV 92 MCH 30.4 MCHC 33.0 RDW 13.2 Plt Count 304 MPV 9.5 Immature Gran % 0.7 Neutrophils % 64.1 Lymphocytes % 24.5 Monocytes % 6.6 Eosinophils % 3.1 Basophils % 1.0 Nucleated RBC % 0.0 Absolute Neutrophils 6.25 Absolute Lymphocytes 2.39 Absolute Monocytes 0.64 Absolute Eosinophils 0.30 Absolute Basophils 0.10 Sodium 137 Potassium 4.6 Chloride 100 Carbon Dioxide 26.0 Anion Gap 11.0 BUN 43 H Creatinine 2.3 H Est GFR (CKD-EPI 2020) 23.30 Glucose 240 H Calcium 9.7 Magnesium 1.7 L Urine Color Dark Yellow Urine Clarity Sl Cloudy Urine pH 5.0 Ur Specific [place] 1.020 Urine Protein 30 H Urine Ketones 15 H Urine Blood Negative Urine Nitrite Negative Urine Bilirubin Small H Urine Urobilinogen 0.2 Ur Leukocyte Esterase Small H Urine RBC 0-2 Urine WBC 3-5 Ur Epithelial Cells Many Urine Crystals Few Amorphous Urine Bacteria Few Urine Casts Negative Urine Mucus Trace Ur Culture Indicated? No/Sq. Contamination Urine Glucose Negative COVID-19 Source Nasopharynx SARS-CoV-2 (PCR) Negative Influenza Type A (PCR) Negative Influenza Type B (PCR) Negative RSV (PCR) Negative Quality:SDOH Health Related Social Needs: No Data to Display PFSH All Active Problems (Updated 09/17/23 @ 22:54 by Karrie Landin NP) Hypotension (Acute) Acute dehydration (Acute) Hypomagnesemia (Acute) Light-headed feeling (Acute) UTI (urinary tract infection) (Acute) Hyperglycemia (Acute) Acute adrenal insufficiency (Acute) URI (upper respiratory infection) (Acute) Headache (Acute) Urinary tract infection (Acute) Atypical chest pain (Acute) Hypomagnesemia (Acute) COVID-19 (Acute) Coronary artery disease (Chronic) Chest pain (Acute) CAD (coronary atherosclerotic disease) (Acute) 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 (Acute) Type 1 diabetes mellitus with diabetic polyneuropathy (Acute) Primary osteoarthritis of both first carpometacarpal joints (Acute 12/22/17) Hypertension (Chronic) Insomnia (Acute) GERD (gastroesophageal reflux disease) (Chronic) Chronic kidney disease (Chronic) COPD (chronic obstructive pulmonary disease) (Chronic) Mixed anxiety depressive disorder (Acute) Medical History Acute exacerbation of chronic obstructive airways disease Acute sinusitis Allergic rhinitis Anemia Benign neoplasm of peripheral nerve Benign neoplasm of peripheral nerves and autonomic nervous system, unspecified Cataracts, bilateral Chronic renal impairment associated with type 2 diabetes mellitus CKD stage 3 due to type 2 diabetes mellitus Colon polyp Depression Diabetes pt reports elevated HgbA1c. 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 No complications. Coronary Stent Cholecystectomy Appendectomy Family History Brother Diabetes Hypertension Heart disease Stroke Obesity Chronic headaches Arthritis Brother Arthritis Chronic headaches Diabetes Heart disease Hypertension Obesity Stroke Father Heart disease Stroke Hypertension Chronic headaches Sister Diabetes Obesity Osteoporosis Daughter Migraine Obesity Brother Arthritis Diabetes Chronic headaches Hypertension Obesity Stroke Mother Asthma Arthritis Diabetes Obesity Stroke Glaucoma Social History Smoking/Tobacco Use Status: Former Tobacco Use Quit Date: 04/13/19 Pack-years: 45 Tobacco: How many years used: 45 Quit status: considering quitting Smoking risk assessment performed?: Yes Alcohol Intake: never Drug use: Never Substance use type: does not use Details: Quit smoking 6 months ago. Household members: friend(s) Housing: apartment Number of Children: 3 number of grandchildren: 14 current occupation: none What is your relationship status?: Panel score (0-1 are the most socially isolated patients): 0 What type of physical activity do you participate in: none Do you feel safe at home: Yes Do you feel safe in your relationship?: Yes Discharge Plan Disposition Patient Disposition: Home Condition: Improving Discharge Details Clinical Impression: Acute dehydration, Hypotension Primary Care Provider: Jeny Almonte ED Provider: Karrie Landin Home Meds and New Rx's Prescriptions: Continued nystatin 100,000 unit/mL Suspension 5 ml PO QID PRN PRN naloxone [Narcan] 4 mg/actuation [place],Non-Aerosol 4 mg INTRANASAL PRN PRN (DME) rolling walker with seat Qty: 1 0RF Rx Instructions: As directed with ambulation insulin aspart U-100 [Novolog FlexPen U-100 Insulin] 300 UNITS/3 ML insulin pen 2 - 20 units Sub-Q 0800,1200,1700 Rx Instructions: Dispense one pen see sliding scale bupropion HCl 150 mg tablet sustained-release 12 hr 1 tab PO BID Patient Comments: TAKE ONE TABLET BY MOUTH TWICE A DAY lorazepam 0.5 mg tablet 0.5 mg PO BID PRN Patient Comments: TAKE ONE TABLET BY MOUTH EVERY 6 HOURS NEEDED FOR ANXIETY nitroglycerin [Nitrostat] 0.4 MG tablet, sublingual 0.4 mg Sublingual PRN PRN cyclobenzaprine 10 mg tablet 10 mg PO Q8H PRN PRN cetirizine 10 mg tablet 10 mg PO DAILY Patient Comments: no longer taking 05/19/23 MG hydrocodone-acetaminophen 5-325 mg tablet 1 tab PO Q8H PRN PRN Patient Comments: TAKE ONE TABLET BY MOUTH EVERY 6 TO 8 HOURS NEEDED cyanocobalamin (vitamin B-12) [Vitamin B-12] 1,000 mcg tablet 1,000 mcg PO DAILY Patient Comments: no longer taking 05/19/23 MG aspirin 81 mg tablet,delayed release (DR/EC) 81 mg PO DAILY Patient Comments: TAKE ONE TABLET BY MOUTH EVERY DAY pyridoxine (vitamin B6) 100 mg tablet 100 mg PO DAILY Patient Comments: no longer taking, insurance will not pay for 05/19/23 fluticasone propionate 50 mcg/actuation spray,suspension 1 spray INTRANASAL DAILY Patient Comments: INSTILL 2 SPRAYS NASALLY DAILY duloxetine 30 mg capsule,delayed release(DR/EC) 60 mg PO DAILY Patient Comments: TAKE ONE CAPSULE BY MOUTH EVERY DAY WITH 60MG duloxetine 60 mg capsule,delayed release(DR/EC) 60 mg PO DAILY Patient Comments: TAKE ONE CAPSULE BY MOUTH EVERY DAY dexlansoprazole [Dexilant] 60 mg capsule,biphase delayed releas 60 mg PO DAILY docusate sodium 250 mg Capsule 250 mg PO DAILY PRN insulin glargine [Basaglar KwikPen U-100 Insulin] 100 unit/mL (3 mL) insulin pen 30 unit SUBCUT BID Patient Comments: INJECT 60 UNITS SUBCUTANEOUSLY ONCE DAILY (30 UNITS EVERY MORNING AND 30 UNITS QPM) cholecalciferol (vitamin D3) [Vitamin D3] 25 mcg (1,000 unit) capsule 1,000 unit PO DAILY Patient Comments: no longer taking 05/19/23 MG magnesium citrate 100 mg Capsule 100 mg PO DAILY lidocaine [Lidoderm] 5 % adhesive patch,medicated 1 patch topical DAILY PRNQty: 15 0RF Rx Instructions: leave on most painful area for up to 12 hrs atorvastatin 80 mg tablet 40 mg PO BID Patient Comments: TAKE ONE TABLET AB BY MOUTH DAILY (cuts tab in half, takes morning and night to reduce side effects) clopidogrel 75 mg tablet 75 mg PO DAILY Patient Comments: TAKE ONE TABLET AB BY MOUTH DAILY metoprolol tartrate 25 mg tablet 12.5 mg PO BID Hold Instructions: provider placed on hold 09/17/23 fexofenadine [Daisy Allergy] 180 mg tablet 180 mg PO DAILY Hold Instructions: not taking, cant afford magnesium oxide 400 mg (241.3 mg magnesium) tablet 400 mg PO DAILY Patient Comments: TAKE ONE TABLET BY MOUTH THREE TIMES A DAY magnesium 250 mg tablet 250 mg PO DAILY Held lisinopril 2.5 mg tablet 2.5 mg PO DAILY Hold Instructions: until discussed with outpatient provider Patient Comments: TAKE ONE TABLET BY MOUTH EVERY DAY Discontinued metoprolol succinate 25 mg tablet extended release 24 hr 25 mg PO DAILY Hold Instructions: provider placed on hold 09/17/23 Patient Comments: 12.5 am 12.5pm Discharge Instructions Instructions: Dehydration (ED), Hypotension (ED) Additional Instructions: drink 6-8 glasses of water daily to stay hydrated stop lisinopril monitor blood pressure daily and bring log to appointment call primary care provider in am for follow up appoint this week change positions slowly to avoid lightheadedness. you need your kidney functions rechecked at your follow up appointment discuss with your doctor Referrals: Jeny Almonte [Primary Care Provider] - (close follow up, lab recheck. call first thing in the morning for appoitment)
[2023-09-17] MEDS: Normal Saline 500 ML IV ×2 (19:45→20:40)
[2023-09-17 20:05] LABS: Abs Immature Grans 0.07 10^3/uL (0.0-0.06); Absolute Lymphocyte Count 2.39 10^3/uL (1.2-3.4); Absolute Monocyte Count 0.64 10^3/uL (0.1-0.8); Absolute Neutrophil Count 6.25 10^3/uL (1.2-6.7); Eosinophils % 3.1; HCT 37.3 % (36.0-46.0); HGB 12.3 g/dL (11.2-15.7); Immature Grans % 0.7; Lymphocytes % 24.5; MCH 30.4 pg (27.0-33.0); MCV 92 fL (80-95); MPV 9.5 fL (8.0-11.0); Monocytes % 6.6; Neutrophils % 64.1; Platelet Count 304 10^3/uL (130-400); RBC 4.04 10^6/uL (3.93-5.22); RDW 13.2 % (11.7-14.6); RDW-SD 44.5 fL; WBC 9.75 10^3/uL (4.4-10.8)
[2023-09-17 20:16] LABS: BUN 43 mg/dL (7-18); CREATININE 2.3 mg/dL (0.55-1.02); Calcium 9.7 mg/dL (8.5-10.1); Chloride 100 mmol/L (98-107); Glucose 240 mg/dL (74-106); Magnesium 1.7 mg/dL (1.8-2.4); Potassium 4.6 mmol/L (3.5-5.1); Sodium 137 mmol/L (136-145)
[2023-09-17 20:31] LABS: COVID-19 PCR Negative (Negative); Influenza A PCR Negative (Negative); Influenza B PCR Negative (Negative); RSV PCR Negative (Negative)
[2023-09-17 20:33] LABS: Source Nasopharynx
[2023-09-17 21:45] LABS: Bilirubin Small (Negative); Blood Negative (Negative); Clarity Sl Cloudy (Clear); Glucose Negative (Negative); Ketones 15 mg/dL (Negative); Leukocyte Esterase Small (Negative); Nitrite Negative (Negative); Urobilinogen 0.2 mg/dL (Up to 0.2)
[2023-09-17 21:54] LABS: Bacteria Few HPF (Negative); C & S Indicated? No/Sq. Contamination; Casts Negative LPF (Negative); Crystals Few Amorphous HPF (Negative); Epithelial Cells Many HPF (Negative); Mucus Trace (Negative); RBC 0-2 HPF (0-2)
== END 2023-09-17 23:32 | disposition home or self-care (01) ==
PROVIDERS: Emergency Provider Nurse Practitioner Acute Care; PCP Nurse Practitioner Family
DX: R42 Dizziness and giddiness (principal); I95.9 Hypotension, unspecified; E86.0 Dehydration; E10.22 Type 1 diabetes mellitus with diabetic chronic kidney disease; I12.9 Hypertensive chronic kidney disease with stage 1 through stage 4 chronic kidney disease, or unspecified chronic kidney disease; N18.30 Chronic kidney disease, stage 3 unspecified; I25.10 Atherosclerotic heart disease of native coronary artery without angina pectoris; J44.9 Chronic obstructive pulmonary disease, unspecified; E10.40 Type 1 diabetes mellitus with diabetic neuropathy, unspecified; E10.3599 Type 1 diabetes mellitus with proliferative diabetic 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 edema, unspecified eye; Z95.5 Presence of coronary angioplasty implant and graft; Z79.01 Long term (current) use of anticoagulants; Z79.82 Long term (current) use of aspirin; Z79.4 Long term (current) use of insulin; Z87.891 Personal history of nicotine dependence; Z11.52 Encounter for screening for COVID-19
CPT/HCPCS: 80048; 87637; 93005; 96360; 96361; 99284; 81003; 81015; 83735; 85025; 93010

== ENCOUNTER 2023-09-20 21:11 | Emergency (ER) | payer OTHER, MEDICAID, SELFPAY ==
[2023-09-20] VITALS (31 sets, daily range): BP systolic 139–190; BP diastolic 39–78; PULSE 91–109; RESP 11–19; TEMP 36.3; O2SAT 97
--- NOTE | 2023-09-20 21:00 | RT.EKG_ITS ---
APPROVED REPORT Exam: Resting ECG Reason for Exam: chest pain Patient Location: E HR:104 bpm ECG Measurements Heart Rate 104 AXIS SD 189 P 61 QRSd 87 QRS 0 QT 350 T 60 QTc 461 Conclusion Sinus tachycardia...rate> 99 Narrow complex sinus tachycardia rate of 104. Left axis deviation no signs of LVH. Intervals within normal limits. No ST segment abnormalities. Poor R wave progression. No acute injury pattern. Co mpared to prior dated 3 days ago no acute changes.
--- NOTE | 2023-09-20 21:15 | DI.RAD_ITS ---
Exam(s) XR PORTABLE CHEST AP EXAM: XR PORTABLE CHEST AP CLINICAL HISTORY: Chest pain TECHNIQUE: 2D digital imaging was performed of the chest. One image was obtained. An AP view was ob tained. COMPARISON: CR,XR XR CHEST 2V PA LATERAL from 09/07/2023 FINDINGS: There are low lung volumes. MEDIASTINUM: Normal. HEART: Normal. PULMONARY VASCULATURE: Normal. LUNGS: Clear. PLEURAL SPACE: No pleural effusion or pneumothorax. BONE:Within normal limits for the patient's age. OTHER FINDINGS:Normal. IMPRESSION: No acute pulmonary findings. DATA REPOSITORY: RADIATION DOSE DELIVERED:
[2023-09-20 21:39] LABS: Abs Immature Grans 0.04 10^3/uL (0.0-0.06); Absolute Basophil Count 0.07 10^3/uL (0.0-0.2); Absolute Eosinophil Count 0.27 10^3/uL (0.0-0.7); Absolute Lymphocyte Count 1.66 10^3/uL (1.2-3.4); Absolute Monocyte Count 0.46 10^3/uL (0.1-0.8); Absolute Neutrophil Count 4.67 10^3/uL (1.2-6.7); Eosinophils % 3.8; HCT 32.9 % (36.0-46.0); HGB 10.9 g/dL (11.2-15.7); Immature Grans % 0.6; Lymphocytes % 23.2; MCH 30.6 pg (27.0-33.0); MCHC 33.1 % (32.0-36.0); MCV 92 fL (80-95); MPV 9.1 fL (8.0-11.0); Monocytes % 6.4; Platelet Count 239 10^3/uL (130-400); RBC 3.56 10^6/uL (3.93-5.22); RDW 13.2 % (11.7-14.6); RDW-SD 44.4 fL; WBC 7.17 10^3/uL (4.4-10.8)
--- NOTE | 2023-09-20 21:55 | W.ED.GENAD ---
HPI General Date/Time Provider Initiated Documentation: 09/20/23 21:25. HPI Narrative: MDM This is an overall well-appearing afebrile and not tachycardic 63-year-old female with coronary artery disease and chest pain concerning for possibility of ACS. ECG nonischemic and not meeting STEMI criteria. Given risk factors will obtain 2 sets of troponins. No tearing quality to suggest dissection. No cough to suggest pneumonia. I considered PE however the patient is not short of breath and is not hypoxic so I did not send a D-dimer. No pain or proportion to suggest necrotizing soft tissue infection. Not a dialysis patient and not hypotensive so doubt tamponade. Patient did receive aspirin with paramedics. I ordered nitroglycerin however the patient's pain resolved. No trauma and equal breath sounds without pneumothorax. No vomiting to suggest increased risk for esophageal rupture. No rash to chest to suggest zoster. No epigastric tenderness to suggest pancreatitis and not an alcoholic. Patient does not appear volume overloaded as she has no pitting edema and no hypoxia so my suspicion for acute heart failure is low. No right upper quadrant tenderness to suggest acute cholecystitis. Consider the patient's arm pain she has no history of trauma and given her bilateral symptoms my suspicion for any acute osseous abnormalities is low. No cervical ribs to suggest thoracic outlet obstruction. Symptoms could be secondary to her fibromyalgia. No signs of dislocation on my exam. Will observe patient on telemetry. 10:06 PM CBC shows normocytic anemia but no leukocytosis. No thrombocytopenia. Reassuring normal proBNP. Mild hypomagnesemia for which patient will receive IV repletion. Normal negative initial troponin. Basic metabolic panel shows no ISA. No acute electrolyte abnormalities. Mild hyperglycemia but no Acidosis and normal bicarbonate??not consistent with DKA. 10:56 PM I went to update the patient however she was resting quietly asleep in bed. I did not wake her up. Will sign patient out to oncoming overnight provider Dr. Quinn HEART SCORE Chest pain Diagnostic Protocol: [-History/Physical/Gestalt: Slightly Suspicious (0)] [-EKG: Normal and/or unchanged from prior EKG (0)] [- AGE: 45-65 (+1)] [- RISK FACTORS: 3 or more risk factors and/or known CAD (+2)] [-TROPONIN: <= normal limit (0)] - TOTAL SCORE: 3 - Risk Factors: DM, current or recent smoker, HTN, HLD, family hx of CAD, obesity - INTERPRETATION: With a total score of 3 or less, risk of major cardiac event within six weeks 1.7%, likely lower with two negative troponins. [I explained to the patient that the risk of subsequent major cardiac event within 1 month is not 0, however risk predicted to be less than 2%. Patient verbalized understanding, accepts this risk and shared and the decision for discharge with PCP follow-up for further evaluation and management. They understand to return to the ED immediately with any worsening symptoms, new symptoms or other concerns.] Chronic conditions affecting the care of the patient: Coronary artery disease fibromyalgia History obtained from an outside historian: N/A External record review: [facility] EMR [Diagnostic interpretations performed by me: Per my independent interpretation chest x-ray shows: Per my independent interpretation EKG shows: Narrow complex sinus tachycardia rate of 104. Left axis deviation no signs of LVH. Intervals within normal limits. No ST segment abnormalities. Poor R wave progression. No acute injury pattern. Compared to prior dated 3 days ago no acute changes. Medications: Nitroglycerin Social determinants of health affecting disposition: N/A Management discussed with: Dr. Carroll Treatment/interventions considered: N/A Response to therapies provided: N/A HPI This is a 63-year-old female arriving to the emergency department via EMS in the setting of acute onset chest pain that woke her up from sleep. She reports that pain is substernal radiates into her right armpit. She had an episode of diarrhea 6 PM this evening. She took a nitroglycerin and she received aspirin with the paramedics. No recent cough no URI symptoms. No shortness of breath. Patient has not had any falls nausea nor vomiting. Patient is not a dialysis patient. She has received stents in the past at [facility]. No dysuria nor frequency. No other residual weight gain. No lower extremity swelling. Patient also notes that she is occasionally had pain in her bilateral upper arms. No trauma. Exam General: Well-appearing in no acute distress speaking in complete sentences. Head: Normocephalic, atraumatic. Eye: Extraocular eye movements intact. No conjunctival injection. No scleral icterus. Ear, nose, mouth, throat: Grossly normal inspection. Normal voice, handling secretions normally. Neck: Trachea midline. Cardiovascular: Well-perfused distal extremities. Regular rate and rhythm Respiratory: Nonlabored respiration. Clear lungs bilaterally Gastrointestinal: Nondistended abdomen. Musculoskeletal: No significant lower extremity pitting edema. Moving all 4 extremities spontaneously. Good range of motion of bilateral shoulders. No tenderness to bilateral upper extremities. Skin: Normal for age and race, grossly normal temperature and turgor. No acute rash. Neurologic: Alert and appropriate, no apparent acute deficits. Psychiatric: Mood and manner are appropriate. Grooming and personal hygiene are appropriate. Related Data Home Medications Medication Instructions Recorded Confirmed nitroglycerin 0.4 mg sublingual 0.4 mg sublingual PRN PRN 06/01/17 09/20/23 tablet (Nitrostat) naloxone 4 mg/actuation nasal 4 mg intranasal PRN PRN 09/10/19 09/20/23 spray (Narcan) nystatin 100,000 unit/mL oral 5 ml PO QID PRN PRN 09/10/19 09/20/23 suspension rolling walker with seat #1 ea 01/12/20 09/07/23 aspirin 81 mg tablet,delayed 81 mg PO DAILY 06/24/20 09/20/23 release cetirizine 10 mg tablet 10 mg PO DAILY 06/24/20 09/17/23 cyanocobalamin (vitamin B-12) 1,000 mcg PO DAILY 06/24/20 09/20/23 1,000 mcg tablet (Vitamin B-12) cyclobenzaprine 10 mg tablet 10 mg PO Q8H PRN PRN 06/24/20 09/20/23 dexlansoprazole 60 mg 60 mg PO DAILY 06/24/20 09/20/23 capsule,biphase delayed release (Dexilant) duloxetine 30 mg capsule,delayed 60 mg PO DAILY 06/24/20 09/20/23 release duloxetine 60 mg capsule,delayed 60 mg PO DAILY 06/24/20 09/20/23 release fluticasone propionate 50 1 spray intranasal DAILY 06/24/20 09/20/23 mcg/actuation nasal spray,suspension hydrocodone 5 mg-acetaminophen 325 1 tab PO Q8H PRN PRN 06/24/20 09/20/23 mg tablet pyridoxine (vitamin B6) 100 mg 100 mg PO DAILY 06/24/20 09/20/23 tablet docusate sodium 250 mg capsule 250 mg PO DAILY PRN 07/16/20 09/20/23 insulin aspart U-100 100 unit/mL 2 - 20 units subcut 0800,1200,1700 11/15/20 09/20/23 (3 mL) subcutaneous pen (Novolog FlexPen U-100 Insulin aspart) bupropion HCl 150 mg tablet,12 hr 1 tab PO BID 02/07/22 09/20/23 sustained-release insulin glargine 100 unit/mL (3 30 unit subcut BID 02/10/22 09/20/23 mL) subcutaneous pen (Basaglar KwikPen U-100 Insulin) cholecalciferol (vitamin D3) 25 1,000 unit PO DAILY 02/20/23 09/20/23 mcg (1,000 unit) capsule (Vitamin D3) lidocaine 5 % topical patch 1 patch topical DAILY PRN #15 ea 02/20/23 09/20/23 (Lidoderm) magnesium citrate 100 mg capsule 100 mg PO DAILY 02/20/23 09/20/23 lorazepam 0.5 mg tablet 0.5 mg PO BID PRN 06/25/23 09/20/23 atorvastatin 80 mg tablet 40 mg PO BID 07/24/23 09/20/23 clopidogrel 75 mg tablet 75 mg PO DAILY 09/07/23 09/20/23 fexofenadine 180 mg tablet 180 mg PO DAILY 09/07/23 09/20/23 (Daisy Allergy) magnesium 250 mg tablet 250 mg PO DAILY 09/07/23 09/20/23 magnesium oxide 400 mg (241.3 mg 400 mg PO DAILY 09/07/23 09/20/23 magnesium) tablet metoprolol tartrate 25 mg tablet 12.5 mg PO BID 09/07/23 09/17/23 lisinopril 2.5 mg tablet 2.5 mg PO DAILY 09/17/23 09/20/23 Previous Rx's Medication Instructions Recorded rolling walker with seat #1 mariely 01/12/20 lidocaine 5 % topical patch 1 patch topical DAILY PRN #15 ea 02/20/23 (Lidoderm) Allergies Allergy/AdvReac Type Severity Reaction Status Date / Time quetiapine [From Seroquel] Allergy Intermediate Unverified 09/20/23 21:19 amoxicillin [From Augmentin] Allergy Unverified 09/20/23 21:19 clavulanic acid Allergy Unverified 09/20/23 21:19 [From Augmentin] Penicillins Allergy Unverified 09/20/23 21:19 Sulfa (Sulfonamide Allergy Unverified 09/20/23 21:19 Antibiotics) exenatide [From [place]] AdvReac Intermediate diarrhea Unverified 09/20/23 21:19 metformin AdvReac Intermediate diarrhea Unverified 09/20/23 21:19 amitriptyline AdvReac made my Unverified 09/20/23 21:19 face go numb amoxicillin trihydrate AdvReac acute Unverified 09/20/23 21:19 [From Augmentin] kidney failure NSAIDS (Non-Steroidal AdvReac stage III Unverified 09/20/23 21:19 Anti-Inflamma kidney disease potassium clavulanate AdvReac acute Unverified 09/20/23 21:19 [From Augmentin] kidney failure General Stated Complaint: Chest Pain SADE: 3 Course Vital Signs Vital signs: Vital Signs Pulse 109 H 09/20/23 21:11 Respiratory Rate 18 09/20/23 21:11 Blood Pressure 190/65 H 09/20/23 21:11 Pulse Oximetry 97 09/20/23 21:11 Pulse 93 H 09/20/23 21:46 Pulse 98 H 09/20/23 21:50 Respiratory Rate 16 09/20/23 21:50 Respiratory Effort Short of Breath 09/20/23 21:16 Respiratory Depth Normal 09/20/23 21:16 Respiratory Pattern Normal 09/20/23 21:16 Blood Pressure 142/73 H 09/20/23 21:46 Blood Pressure Mean 98 09/20/23 21:46 Blood Pressure Position Sitting 09/20/23 21:11 Pulse Oximetry 97 09/20/23 21:11 Oxygen Delivery Method Room Air 09/20/23 21:11 Oxygen Flow Rate 0 09/20/23 21:11 Pain Level 6 09/20/23 21:11 Lab/Test Results Lab/Test Results: Laboratory Tests Range/Units 09/20/23 21:30 WBC (4.4-10.8) 10^3/uL 7.17 RBC (3.93-5.22) 10^6/uL 3.56 L Hgb (11.2-15.7) g/dL 10.9 L Hct (36.0-46.0) % 32.9 L MCV (80-95) fL 92 MCH (27.0-33.0) pg 30.6 MCHC (32.0-36.0) % 33.1 RDW (11.7-14.6) % 13.2 Plt Count (130-400) 10^3/uL 239 MPV (8.0-11.0) fL 9.1 Immature Gran % 0.6 Neutrophils % 65.0 Lymphocytes % 23.2 Monocytes % 6.4 Eosinophils % 3.8 Basophils % 1.0 Nucleated RBC % (0.0-0.3) % 0.0 Absolute Neutrophils (1.2-6.7) 10^3/uL 4.67 Absolute Lymphocytes (1.2-3.4) 10^3/uL 1.66 Absolute Monocytes (0.1-0.8) 10^3/uL 0.46 Absolute Eosinophils (0.0-0.7) 10^3/uL 0.27 Absolute Basophils (0.0-0.2) 10^3/uL 0.07 Medical Decision Making Quality:SDOH Health Related Social Needs: No Data to Display PFSH All Active Problems (Updated 09/20/23 @ 22:07 by Jacob Long MD) Hypomagnesemia (Acute) Hypotension (Acute) Acute dehydration (Acute) Hypomagnesemia (Acute) Light-headed feeling (Acute) UTI (urinary tract infection) (Acute) Hyperglycemia (Acute) Acute adrenal insufficiency (Acute) URI (upper respiratory infection) (Acute) Headache (Acute) Urinary tract infection (Acute) Atypical chest pain (Acute) Hypomagnesemia (Acute) COVID-19 (Acute) Coronary artery disease (Chronic) Chest pain (Acute) CAD (coronary atherosclerotic disease) (Acute) 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 (Acute) Type 1 diabetes mellitus with diabetic polyneuropathy (Acute) Primary osteoarthritis of both first carpometacarpal joints (Acute 12/22/17) Hypertension (Chronic) Insomnia (Acute) GERD (gastroesophageal reflux disease) (Chronic) Chronic kidney disease (Chronic) COPD (chronic obstructive pulmonary disease) (Chronic) Mixed anxiety depressive disorder (Acute) Medical History Acute exacerbation of chronic obstructive airways disease Acute sinusitis Allergic rhinitis Anemia Benign neoplasm of peripheral nerve Benign neoplasm of peripheral nerves and autonomic nervous system, unspecified Cataracts, bilateral Chronic renal impairment associated with type 2 diabetes mellitus CKD stage 3 due to type 2 diabetes mellitus Colon polyp Depression Diabetes pt reports elevated HgbA1c. 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 No complications. Coronary Stent Cholecystectomy Appendectomy Family History Brother Diabetes Hypertension Heart disease Stroke Obesity Chronic headaches Arthritis Brother Arthritis Chronic headaches Diabetes Heart disease Hypertension Obesity Stroke Father Heart disease Stroke Hypertension Chronic headaches Sister Diabetes Obesity Osteoporosis Daughter Migraine Obesity Brother Arthritis Diabetes Chronic headaches Hypertension Obesity Stroke Mother Asthma Arthritis Diabetes Obesity Stroke Glaucoma Social History Smoking/Tobacco Use Status: Former Tobacco Use Quit Date: 04/13/19 Pack-years: 45 Tobacco: How many years used: 45 Quit status: considering quitting Smoking risk assessment performed?: Yes Alcohol Intake: never Drug use: Never Substance use type: does not use Details: Quit smoking 6 months ago. Household members: friend(s) Housing: apartment Number of Children: 3 number of grandchildren: 14 current occupation: none What is your relationship status?: Panel score (0-1 are the most socially isolated patients): 0 What type of physical activity do you participate in: none Do you feel safe at home: Yes Do you feel safe in your relationship?: Yes Discharge Plan Discharge Details Chief Complaint: Chest Pain Clinical Impression: Hypomagnesemia Primary Care Provider: Jeny Almonte ED Provider: Jacob Long Home Meds and New Rx's Prescriptions: No Action nystatin 100,000 unit/mL Suspension 5 ml PO QID PRN PRN naloxone [Narcan] 4 mg/actuation [place],Non-Aerosol 4 mg INTRANASAL PRN PRN (DME) rolling walker with seat Qty: 1 0RF Rx Instructions: As directed with ambulation insulin aspart U-100 [Novolog FlexPen U-100 Insulin] 300 UNITS/3 ML insulin pen 2 - 20 units Sub-Q 0800,1200,1700 Rx Instructions: Dispense one pen see sliding scale bupropion HCl 150 mg tablet sustained-release 12 hr 1 tab PO BID Patient Comments: TAKE ONE TABLET BY MOUTH TWICE A DAY lorazepam 0.5 mg tablet 0.5 mg PO BID PRN Patient Comments: TAKE ONE TABLET BY MOUTH EVERY 6 HOURS NEEDED FOR ANXIETY nitroglycerin [Nitrostat] 0.4 MG tablet, sublingual 0.4 mg Sublingual PRN PRN cyclobenzaprine 10 mg tablet 10 mg PO Q8H PRN PRN cetirizine 10 mg tablet 10 mg PO DAILY Patient Comments: no longer taking 05/19/23 MG hydrocodone-acetaminophen 5-325 mg tablet 1 tab PO Q8H PRN PRN Patient Comments: TAKE ONE TABLET BY MOUTH EVERY 6 TO 8 HOURS NEEDED cyanocobalamin (vitamin B-12) [Vitamin B-12] 1,000 mcg tablet 1,000 mcg PO DAILY Patient Comments: no longer taking 05/19/23 MG aspirin 81 mg tablet,delayed release (DR/EC) 81 mg PO DAILY Patient Comments: TAKE ONE TABLET BY MOUTH EVERY DAY pyridoxine (vitamin B6) 100 mg tablet 100 mg PO DAILY Patient Comments: no longer taking, insurance will not pay for 05/19/23 fluticasone propionate 50 mcg/actuation spray,suspension 1 spray INTRANASAL DAILY Patient Comments: INSTILL 2 SPRAYS NASALLY DAILY duloxetine 30 mg capsule,delayed release(DR/EC) 60 mg PO DAILY Patient Comments: TAKE ONE CAPSULE BY MOUTH EVERY DAY WITH 60MG duloxetine 60 mg capsule,delayed release(DR/EC) 60 mg PO DAILY Patient Comments: TAKE ONE CAPSULE BY MOUTH EVERY DAY dexlansoprazole [Dexilant] 60 mg capsule,biphase delayed releas 60 mg PO DAILY docusate sodium 250 mg Capsule 250 mg PO DAILY PRN insulin glargine [Basaglar KwikPen U-100 Insulin] 100 unit/mL (3 mL) insulin pen 30 unit SUBCUT BID Patient Comments: INJECT 60 UNITS SUBCUTANEOUSLY ONCE DAILY (30 UNITS EVERY MORNING AND 30 UNITS QPM) cholecalciferol (vitamin D3) [Vitamin D3] 25 mcg (1,000 unit) capsule 1,000 unit PO DAILY Patient Comments: no longer taking 05/19/23 MG magnesium citrate 100 mg Capsule 100 mg PO DAILY lidocaine [Lidoderm] 5 % adhesive patch,medicated 1 patch topical DAILY PRNQty: 15 0RF Rx Instructions: leave on most painful area for up to 12 hrs atorvastatin 80 mg tablet 40 mg PO BID Patient Comments: TAKE ONE TABLET AB BY MOUTH DAILY (cuts tab in half, takes morning and night to reduce side effects) clopidogrel 75 mg tablet 75 mg PO DAILY Patient Comments: TAKE ONE TABLET AB BY MOUTH DAILY metoprolol tartrate 25 mg tablet 12.5 mg PO BID Hold Instructions: provider placed on hold 09/17/23 fexofenadine [Daisy Allergy] 180 mg tablet 180 mg PO DAILY Hold Instructions: not taking, cant afford magnesium oxide 400 mg (241.3 mg magnesium) tablet 400 mg PO DAILY Patient Comments: TAKE ONE TABLET BY MOUTH THREE TIMES A DAY magnesium 250 mg tablet 250 mg PO DAILY lisinopril 2.5 mg tablet 2.5 mg PO DAILY Hold Instructions: until discussed with outpatient provider Patient Comments: TAKE ONE TABLET BY MOUTH EVERY DAY
[2023-09-20 22:01] LABS: Anion Gap 9.4 mmol/L (3-11); BUN 41 mg/dL (7-18); CO2 25.6 mmol/L (21.0-32.0); CREATININE 1.7 mg/dL (0.55-1.02); Calcium 9.1 mg/dL (8.5-10.1); Chloride 105 mmol/L (98-107); Estimated GFR 33.49 (mL/min/1.73m2); Glucose 189 mg/dL (74-106); Magnesium 1.5 mg/dL (1.8-2.4); NT-proBNP 167 pg/mL (<300); Potassium 4.3 mmol/L (3.5-5.1); Sodium 140 mmol/L (136-145); Troponin I < 50 ng/L (< or =60)
[2023-09-20] MEDS: MAGNESIUM SULFATE 2 GM/50 ML BAG IVPB (22:22)
--- NOTE | 2023-09-20 22:29 | NUR.NOTE ---
Nursing Note: 2215 pt states that she was having CP 2218 1 0.3 nitro given 2224 Pt states that pain has resolved
--- NOTE | 2023-09-20 22:34 | DI.VRAD_ITS ---
PROCEDURE INFORMATION: Exam: XR Chest Exam date and time: 09/20/2023 10:14 PM Age: 63 years old Clinical indication: Other: Unspecified; Patient HX: Chest pain TECHNIQUE: Imaging protocol: Radiologic exam of the chest. Views: 1 view. COMPARISON: CR XR CHEST 2V PA LATERAL 09/07/2023 2:16 PM FINDINGS: Lungs: Unremarkable. No consolidation. Pleural spaces: Unremarkable. No pleural effusion. No pneumothorax. Heart/Mediastinum: Unremarkable. No cardiomegaly. Bones/joints: Unremarkable. IMPRESSION: No acute findings. Dictated and Authenticated by: Jorge Willard MD. Ordering:REESE James MD
[2023-09-21] VITALS: PULSE 92; RESP 15
[2023-09-21 00:19] LABS: Troponin I < 50 ng/L (< or =60)
== END 2023-09-21 00:44 | disposition home or self-care (01) ==
PROVIDERS: Emergency Medicine; Emergency Provider Emergency Medicine; PCP Nurse Practitioner Family
DX: E83.42 Hypomagnesemia (principal); R00.0 Tachycardia, unspecified; I25.10 Atherosclerotic heart disease of native coronary artery without angina pectoris; E10.22 Type 1 diabetes mellitus with diabetic chronic kidney disease; I12.9 Hypertensive chronic kidney disease with stage 1 through stage 4 chronic kidney disease, or unspecified chronic kidney disease; N18.30 Chronic kidney disease, stage 3 unspecified; E10.3599 Type 1 diabetes mellitus with proliferative diabetic 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 edema, unspecified eye; E10.41 Type 1 diabetes mellitus with diabetic mononeuropathy; Z95.5 Presence of coronary angioplasty implant and graft; Z79.01 Long term (current) use of anticoagulants; Z79.4 Long term (current) use of insulin; Z79.82 Long term (current) use of aspirin; Z87.891 Personal history of nicotine dependence
CPT/HCPCS: 36415; 80048; 93005; 96365; 99284; 71045; 83735; 83880; 84484; 85025; 93010; J3475

== ENCOUNTER 2023-11-21 19:44 | Emergency (ER) | payer OTHER, MEDICAID, SELFPAY ==
[2023-11-21] VITALS (12 sets, daily range): BP systolic 120–138; BP diastolic 60–84; PULSE 77–117; RESP 12–22; TEMP 36.4; O2SAT 97–100
--- NOTE | 2023-11-21 19:30 | RT.EKG_ITS ---
APPROVED REPORT Exam: Resting ECG Reason for Exam: hypotension Patient Location: E HR:97 bpm ECG Measurements Heart Rate 97 AXIS NV 175 P -14 QRSd 76 QRS 2 QT 349 T 41 QTc 443 Conclusion Sinus rhythm...normal P axis, V-rate 60- 99 Inferior infarct, old...Q >35mS, II III aVF Anterior infarct, old...Q >40mS, abnormal ST-T, V2-V5
[2023-11-21 20:17] LABS: Abs Immature Grans 0.05 10^3/uL (0.0-0.06); Absolute Basophil Count 0.08 10^3/uL (0.0-0.2); Absolute Lymphocyte Count 1.89 10^3/uL (1.2-3.4); Absolute Monocyte Count 0.52 10^3/uL (0.1-0.8); Absolute Neutrophil Count 5.96 10^3/uL (1.2-6.7); Basophils % 0.9; Eosinophils % 3.4; HCT 35.6 % (36.0-46.0); HGB 11.5 g/dL (11.2-15.7); Immature Grans % 0.6; Lymphocytes % 21.5; MCH 29.9 pg (27.0-33.0); MCHC 32.3 % (32.0-36.0); MCV 93 fL (80-95); MPV 9.6 fL (8.0-11.0); Monocytes % 5.9; Neutrophils % 67.7; Platelet Count 250 10^3/uL (130-400); RBC 3.84 10^6/uL (3.93-5.22); RDW 12.7 % (11.7-14.6); RDW-SD 42.7 fL
[2023-11-21 20:41] LABS: ALT 22 U/L (14-59); AST 16 U/L (15-37); Albumin 3.1 g/dL (3.4-5.0); Alkaline Phosphatase 97 U/L (46-116); Anion Gap 10.5 mmol/L (3-11); BUN 55 mg/dL (7-18); Bilirubin, Total 0.4 mg/dL (0.2-1.0); CO2 24.5 mmol/L (21.0-32.0); CREATININE 2.1 mg/dL (0.55-1.02); Calcium 8.7 mg/dL (8.5-10.1); Chloride 104 mmol/L (98-107); Estimated GFR 25.99 (mL/min/1.73m2); Glucose 221 mg/dL (74-106); Magnesium 1.7 mg/dL (1.8-2.4); Potassium 4.7 mmol/L (3.5-5.1); Sodium 139 mmol/L (136-145); TSH (W/Ref FT4) 3.83 uIU/mL (0.36-3.74); Total Protein 6.9 g/dL (6.4-8.2); Troponin I < 50 ng/L (< or =60)
[2023-11-21 20:58] LABS: FREE T4 0.94 ng/dL (0.76-1.46)
--- NOTE | 2023-11-21 21:15 | RT.EKG_ITS ---
APPROVED REPORT Exam: Resting ECG Reason for Exam: chest pain Patient Location: E HR:92 bpm ECG Measurements Heart Rate 92 AXIS LA 185 P 20 QRSd 81 QRS -9 QT 373 T 56 QTc 462 Conclusion Sinus rhythm...normal P axis, V-rate 60- 99 Inferior infarct, old...Q >35mS, II III aVF
[2023-11-21] MEDS: Normal Saline 500 ML IV (21:25)
[2023-11-21 21:51] LABS: Bilirubin Negative (Negative); Blood Negative (Negative); Clarity Sl Cloudy (Clear); Glucose Negative (Negative); Ketones Trace mg/dL (Negative); Leukocyte Esterase Moderate (Negative); Nitrite Negative (Negative); Urobilinogen 0.2 mg/dL (Up to 0.2); pH 5.5 (5-8)
[2023-11-21 21:57] LABS: Bacteria Few HPF (Negative); C & S Indicated? No/Sq. Contamination; Casts Negative LPF (Negative); Crystals Negative HPF (Negative); Epithelial Cells Many HPF (Negative); Mucus Trace (Negative); Other Cells Rare Renal (Negative); RBC Negative HPF (0-2)
--- NOTE | 2023-11-21 22:30 | ED.GENADUL_ITS ---
Discharge Plan Disposition Patient Disposition: Home Condition: Stable Discharge Details Clinical Impression: Light-headed feeling Primary Care Provider: Jeny Almonte ED Provider: Tea Huang Home Meds and New Rx's Prescriptions: Continued nystatin 100,000 unit/mL Suspension 5 ml PO QID PRN PRN naloxone [Narcan] 4 mg/actuation [place],Non-Aerosol 4 mg INTRANASAL PRN PRN (DME) rolling walker with seat Qty: 1 0RF Rx Instructions: As directed with ambulation insulin aspart U-100 [Novolog FlexPen U-100 Insulin] 300 UNITS/3 ML insulin pen 2 - 20 units Sub-Q 0800,1200,1700 Rx Instructions: Dispense one pen see sliding scale bupropion HCl 150 mg tablet sustained-release 12 hr 1 tab PO BID Patient Comments: TAKE ONE TABLET BY MOUTH TWICE A DAY lorazepam 0.5 mg tablet 0.5 mg PO BID PRN Patient Comments: TAKE ONE TABLET BY MOUTH EVERY 6 HOURS NEEDED FOR ANXIETY nitroglycerin [Nitrostat] 0.4 MG tablet, sublingual 0.4 mg Sublingual PRN PRN cyclobenzaprine 10 mg tablet 10 mg PO Q8H PRN PRN cetirizine 10 mg tablet 10 mg PO DAILY Patient Comments: no longer taking 05/19/23 MG hydrocodone-acetaminophen 5-325 mg tablet 1 tab PO Q8H PRN PRN Patient Comments: TAKE ONE TABLET BY MOUTH EVERY 6 TO 8 HOURS NEEDED cyanocobalamin (vitamin B-12) [Vitamin B-12] 1,000 mcg tablet 1,000 mcg PO DAILY Patient Comments: no longer taking 05/19/23 MG aspirin 81 mg tablet,delayed release (DR/EC) 81 mg PO DAILY Patient Comments: TAKE ONE TABLET BY MOUTH EVERY DAY pyridoxine (vitamin B6) 100 mg tablet 100 mg PO DAILY Patient Comments: no longer taking, insurance will not pay for 05/19/23 fluticasone propionate 50 mcg/actuation spray,suspension 1 spray INTRANASAL DAILY Patient Comments: INSTILL 2 SPRAYS NASALLY DAILY duloxetine 30 mg capsule,delayed release(DR/EC) 60 mg PO DAILY Patient Comments: TAKE ONE CAPSULE BY MOUTH EVERY DAY WITH 60MG duloxetine 60 mg capsule,delayed release(DR/EC) 60 mg PO DAILY Patient Comments: TAKE ONE CAPSULE BY MOUTH EVERY DAY dexlansoprazole [Dexilant] 60 mg capsule,biphase delayed releas 60 mg PO DAILY docusate sodium 250 mg Capsule 250 mg PO DAILY PRN insulin glargine [Basaglar KwikPen U-100 Insulin] 100 unit/mL (3 mL) insulin pen 30 unit SUBCUT BID Patient Comments: INJECT 60 UNITS SUBCUTANEOUSLY ONCE DAILY (30 UNITS EVERY MORNING AND 30 UNITS QPM) cholecalciferol (vitamin D3) [Vitamin D3] 25 mcg (1,000 unit) capsule 1,000 unit PO DAILY Patient Comments: no longer taking 05/19/23 MG magnesium citrate 100 mg Capsule 100 mg PO DAILY lidocaine [Lidoderm] 5 % adhesive patch,medicated 1 patch topical DAILY PRNQty: 15 0RF Rx Instructions: leave on most painful area for up to 12 hrs atorvastatin 80 mg tablet 40 mg PO BID Patient Comments: TAKE ONE TABLET AB BY MOUTH DAILY (cuts tab in half, takes morning and night to reduce side effects) clopidogrel 75 mg tablet 75 mg PO DAILY Patient Comments: TAKE ONE TABLET AB BY MOUTH DAILY metoprolol tartrate 25 mg tablet 12.5 mg PO BID Hold Instructions: provider placed on hold 09/17/23 fexofenadine [Daisy Allergy] 180 mg tablet 180 mg PO DAILY Hold Instructions: not taking, cant afford magnesium oxide 400 mg (241.3 mg magnesium) tablet 400 mg PO DAILY Patient Comments: TAKE ONE TABLET BY MOUTH THREE TIMES A DAY magnesium 250 mg tablet 250 mg PO DAILY lisinopril 2.5 mg tablet 2.5 mg PO DAILY Hold Instructions: until discussed with outpatient provider Patient Comments: TAKE ONE TABLET BY MOUTH EVERY DAY Discharge Instructions Additional Instructions: Please follow-up with your primary care physician on Friday Use your walker when ambulating Regular food and fluids Take only your lisinopril daily for blood pressure Please return earlier should you have new or worsening complaints Use caution when going from sitting to standing and wait in a seated position for several minutes before he stands Referrals: Tea Huang PA [Emergency Provider] - HPI General Date/Time Provider Initiated Documentation: 11/21/23 19:57 . HPI Narrative: This 63-year-old female presents with lightheadedness for the past 3 days. Per EMS she was hypotensive. On arrival here blood pressure is stable. Patient is alert and oriented, she has had intermittent lightheadedness for the last several days. She stopped taking her metoprolol and decreased her lisinopril to 1.25 mg daily as a result. She EMS reports glucose 260. Patient denies any falls or injuries. She denies any speech, focal strength or sensation change. She denies any urinary symptoms. She denies any new medications. Related Data Home Medications Medication Instructions Recorded Confirmed nitroglycerin 0.4 mg sublingual 0.4 mg sublingual PRN PRN 06/01/17 11/21/23 tablet (Nitrostat) naloxone 4 mg/actuation nasal 4 mg intranasal PRN PRN 09/10/19 11/21/23 spray (Narcan) nystatin 100,000 unit/mL oral 5 ml PO QID PRN PRN 09/10/19 11/21/23 suspension rolling walker with seat #1 ea 01/12/20 09/07/23 aspirin 81 mg tablet,delayed 81 mg PO DAILY 06/24/20 11/21/23 release cetirizine 10 mg tablet 10 mg PO DAILY 06/24/20 11/21/23 cyanocobalamin (vitamin B-12) 1,000 mcg PO DAILY 06/24/20 11/21/23 1,000 mcg tablet (Vitamin B-12) cyclobenzaprine 10 mg tablet 10 mg PO Q8H PRN PRN 06/24/20 11/21/23 dexlansoprazole 60 mg 60 mg PO DAILY 06/24/20 11/21/23 capsule,biphase delayed release (Dexilant) duloxetine 30 mg capsule,delayed 60 mg PO DAILY 06/24/20 11/21/23 release duloxetine 60 mg capsule,delayed 60 mg PO DAILY 06/24/20 11/21/23 release fluticasone propionate 50 1 spray intranasal DAILY 06/24/20 11/21/23 mcg/actuation nasal spray,suspension hydrocodone 5 mg-acetaminophen 325 1 tab PO Q8H PRN PRN 06/24/20 11/21/23 mg tablet pyridoxine (vitamin B6) 100 mg 100 mg PO DAILY 06/24/20 11/21/23 tablet docusate sodium 250 mg capsule 250 mg PO DAILY PRN 07/16/20 11/21/23 insulin aspart U-100 100 unit/mL 2 - 20 units subcut 0800,1200,1700 11/15/11/21/23 (3 mL) subcutaneous pen (Novolog FlexPen U-100 Insulin aspart) bupropion HCl 150 mg tablet,12 hr 1 tab PO BID 02/07/22 11/21/23 sustained-release insulin glargine 100 unit/mL (3 30 unit subcut BID 02/10/22 11/21/23 mL) subcutaneous pen (Basaglar KwikPen U-100 Insulin) cholecalciferol (vitamin D3) 25 1,000 unit PO DAILY 02/20/23 11/21/23 mcg (1,000 unit) capsule (Vitamin D3) lidocaine 5 % topical patch 1 patch topical DAILY PRN #15 ea 02/20/23 11/21/23 (Lidoderm) magnesium citrate 100 mg capsule 100 mg PO DAILY 02/20/23 11/21/23 lorazepam 0.5 mg tablet 0.5 mg PO BID PRN 06/25/23 11/21/23 atorvastatin 80 mg tablet 40 mg PO BID 07/24/23 11/21/23 clopidogrel 75 mg tablet 75 mg PO DAILY 09/07/23 11/21/23 fexofenadine 180 mg tablet 180 mg PO DAILY 09/07/23 11/21/23 (Daisy Allergy) magnesium 250 mg tablet 250 mg PO DAILY 09/07/23 11/21/23 magnesium oxide 400 mg (241.3 mg 400 mg PO DAILY 09/07/23 11/21/23 magnesium) tablet metoprolol tartrate 25 mg tablet 12.5 mg PO BID 09/07/23 11/21/23 lisinopril 2.5 mg tablet 2.5 mg PO DAILY 09/17/23 11/21/23 Previous Rx's Medication Instructions Recorded rolling walker with seat #1 ea 01/12/20 lidocaine 5 % topical patch 1 patch topical DAILY PRN #15 ea 02/20/23 (Lidoderm) Allergies Allergy/AdvReac Type Severity Reaction Status Date / Time quetiapine [From Seroquel] Allergy Intermediate Nausea Unverified 11/21/23 19:52 amoxicillin [From Augmentin] Allergy Contraindic Unverified 11/21/23 19:52 ated clavulanic acid Allergy Contraindic Unverified 11/21/23 19:52 [From Augmentin] ated Penicillins Allergy Contraindic Unverified 11/21/23 19:52 ated Sulfa (Sulfonamide Allergy Contraindic Unverified 11/21/23 19:52 Antibiotics) ated exenatide [From [place]] AdvReac Intermediate diarrhea Unverified 11/21/23 19:52 metformin AdvReac Intermediate diarrhea Unverified 11/21/23 19:52 amitriptyline AdvReac made my Unverified 11/21/23 19:52 face go numb amoxicillin trihydrate AdvReac acute Unverified 11/21/23 19:52 [From Augmentin] kidney failure NSAIDS (Non-Steroidal AdvReac stage III Unverified 11/21/23 19:52 Anti-Inflamma kidney disease potassium clavulanate AdvReac acute Unverified 11/21/23 19:52 [From Augmentin] kidney failure General Stated Complaint: Dizzy/Sync SADE: 3 Course Vital Signs Vital signs: Vital Signs Temperature 36.4 C L 11/21/23 19:45 Pulse 117 H 11/21/23 19:45 Respiratory Rate 18 11/21/23 19:45 Blood Pressure 138/84 11/21/23 19:45 Pulse Oximetry 99 11/21/23 19:45 Temperature 36.4 C L 11/21/23 19:45 Pulse 87 11/21/23 20:21 Pulse 93 H 11/21/23 20:21 Respiratory Rate 17 11/21/23 20:21 Respiratory Effort Normal 11/21/23 19:58 Respiratory Depth Normal 11/21/23 19:58 Respiratory Pattern Normal 11/21/23 19:58 Blood Pressure 120/63 11/21/23 20:21 Blood Pressure Mean 78 11/21/23 20:21 Blood Pressure Position Sitting 11/21/23 19:45 Pulse Oximetry 99 11/21/23 20:21 Oxygen Delivery Method Room Air 11/21/23 19:45 Oxygen Flow Rate 0 11/21/23 19:45 Lab/Test Results Lab/Test Results: Laboratory Tests Range/Units 11/21/23 11/21/23 11/21/23 20:10 20:10 21:45 WBC (4.4-10.8) 10^3/uL 8.80 RBC (3.93-5.22) 10^6/uL 3.84 L Hgb (11.2-15.7) g/dL 11.5 Hct (36.0-46.0) % 35.6 L MCV (80-95) fL 93 MCH (27.0-33.0) pg 29.9 MCHC (32.0-36.0) % 32.3 RDW (11.7-14.6) % 12.7 Plt Count (130-400) 10^3/uL 250 MPV (8.0-11.0) fL 9.6 Immature Gran % 0.6 Neutrophils % 67.7 Lymphocytes % 21.5 Monocytes % 5.9 Eosinophils % 3.4 Basophils % 0.9 Nucleated RBC % (0.0-0.3) % 0.0 Absolute Neutrophils (1.2-6.7) 10^3/uL 5.96 Absolute Lymphocytes (1.2-3.4) 10^3/uL 1.89 Absolute Monocytes (0.1-0.8) 10^3/uL 0.52 Absolute Eosinophils (0.0-0.7) 10^3/uL 0.30 Absolute Basophils (0.0-0.2) 10^3/uL 0.08 Sodium (136-145) mmol/L 139 Potassium (3.5-5.1) mmol/L 4.7 Chloride (98-107) mmol/L 104 Carbon Dioxide (21.0-32.0) mmol/L 24.5 Anion Gap (3-11) mmol/L 10.5 BUN (7-18) mg/dL 55 H Creatinine (0.55-1.02) mg/dL 2.1 H Est GFR (CKD-EPI 2020) (mL/min/1.73m2) 25.99 Glucose (74-106) mg/dL 221 H Calcium (8.5-10.1) mg/dL 8.7 Magnesium (1.8-2.4) mg/dL 1.7 L Total Bilirubin (0.2-1.0) mg/dL 0.4 AST (15-37) U/L 16 ALT (14-59) U/L 22 Alkaline Phosphatase (46-116) U/L 97 Troponin I (< or =60) ng/L < 50 Total Protein (6.4-8.2) g/dL 6.9 Albumin (3.4-5.0) g/dL 3.1 L TSH (0.36-3.74) uIU/mL 3.83 H Cancelled Free T4 (0.76-1.46) ng/dL 0.94 Urine Color (Yellow) Yellow Urine Clarity (Clear) Sl Cloudy Urine pH (5-8) 5.5 Ur Specific Joanna (1.005-1.025) 1.020 Urine Protein (Neg-Trace) mg/dL Negative Urine Ketones (Negative) mg/dL Trace H Urine Blood (Negative) Negative Urine Nitrite (Negative) Negative Urine Bilirubin (Negative) Negative Urine Urobilinogen (Up to 0.2) mg/dL 0.2 Ur Leukocyte Esterase (Negative) Moderate H Urine RBC (0-2) HPF Negative Urine WBC (0-5) HPF 5-10 Ur Epithelial Cells (Negative) HPF Many Urine Crystals (Negative) HPF Negative Urine Bacteria (Negative) HPF Few Urine Casts (Negative) LPF Negative Urine Mucus (Negative) Trace Urine Other (Negative) Rare Renal Ur Culture Indicated? No/Sq. Contamination Urine Glucose (Negative) mg/dL Negative Medical Decision Making 63-year-old female known to this facility with history of coronary artery disease presenting with lightheadedness, at her baseline mentally, nonfocal neurological exam, cranial nerves II through XII intact, alert and oriented x 4, Cardiac rate rhythm regular, lungs clear to auscultation bilaterally, 1+ edema to bilateral lower extremities, nontender, no abdominal tenderness, no murmurs or rubs Neurovascularly intact, negative [id number], negative heel [place], uvula midline, speaking in complete sentences patient does feel lightheaded if she stands for greater than 45 minutes, she states that this is her baseline in the past several years She is actually put in an application for placement at the rehabilitation center and this is pending At this time she feels as though she is at her baseline she is requesting and feels comfortable discharge home, she is no chest pain or shortness of breath and is alert and oriented x 4 Orthostatics negative per my assessment Urinalysis without evidence of urinary tract infection, labs stable for patient when compared to prior Instructed to follow-up with primary care physician on Friday return earlier should she have new or worsening complaints Quality:SDOH Health Related Social Needs: No Data to Display PFSH All Active Problems (Updated 11/21/23 @ 22:31 by WHIT Humphries) Light-headed feeling (Acute) Hyperglycemia (Acute) Acute adrenal insufficiency (Acute) URI (upper respiratory infection) (Acute) Headache (Acute) Urinary tract infection (Acute) Atypical chest pain (Acute) Hypomagnesemia (Acute) COVID-19 (Acute) Coronary artery disease (Chronic) Chest pain (Acute) CAD (coronary atherosclerotic disease) (Acute) 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 (Acute) Type 1 diabetes mellitus with diabetic polyneuropathy (Acute) Primary osteoarthritis of both first carpometacarpal joints (Acute 12/22/17) Hypertension (Chronic) Insomnia (Acute) GERD (gastroesophageal reflux disease) (Chronic) Chronic kidney disease (Chronic) COPD (chronic obstructive pulmonary disease) (Chronic) Mixed anxiety depressive disorder (Acute) Medical History Acute exacerbation of chronic obstructive airways disease Acute sinusitis Allergic rhinitis Anemia Benign neoplasm of peripheral nerve Benign neoplasm of peripheral nerves and autonomic nervous system, unspecified Cataracts, bilateral Chronic renal impairment associated with type 2 diabetes mellitus CKD stage 3 due to type 2 diabetes mellitus Colon polyp Depression Diabetes pt reports elevated HgbA1c. 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 No complications. Coronary Stent Cholecystectomy Appendectomy Family History Brother Diabetes Hypertension Heart disease Stroke Obesity Chronic headaches Arthritis Brother Arthritis Chronic headaches Diabetes Heart disease Hypertension Obesity Stroke Father Heart disease Stroke Hypertension Chronic headaches Sister Diabetes Obesity Osteoporosis Daughter Migraine Obesity Brother Arthritis Diabetes Chronic headaches Hypertension Obesity Stroke Mother Asthma Arthritis Diabetes Obesity Stroke Glaucoma Social History Smoking/Tobacco Use Status: Former Tobacco Use Quit Date: 04/13/19 Pack-years: 45 Tobacco: How many years used: 45 Quit status: considering quitting Smoking risk assessment performed?: Yes Alcohol Intake: never Drug use: Never Substance use type: does not use Details: Quit smoking 6 months ago. Household members: friend(s) Housing: apartment Number of Children: 3 number of grandchildren: 14 current occupation: none What is your relationship status?: Panel score (0-1 are the most socially isolated patients): 0 What type of physical activity do you participate in: none Do you feel safe at home: Yes Do you feel safe in your relationship?: Yes
== END 2023-11-21 22:39 | disposition home or self-care (01) ==
PROVIDERS: Emergency Provider Physician Assistant; PCP Nurse Practitioner Family
DX: R42 Dizziness and giddiness (principal); E11.22 Type 2 diabetes mellitus with diabetic chronic kidney disease; I12.9 Hypertensive chronic kidney disease with stage 1 through stage 4 chronic kidney disease, or unspecified chronic kidney disease; N18.30 Chronic kidney disease, stage 3 unspecified; E11.3593 Type 2 diabetes mellitus with proliferative diabetic 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 edema, bilateral; Z95.5 Presence of coronary angioplasty implant and graft; Z79.82 Long term (current) use of aspirin; Z79.02 Long term (current) use of antithrombotics/antiplatelets; Z79.4 Long term (current) use of insulin
CPT/HCPCS: 80053; 82962; 93005; 99284; 81003; 81015; 83735; 84439; 84443; 84484; 85025; 93010

== ENCOUNTER 2023-12-19 16:36 | Emergency (ER) | payer OTHER, MEDICAID, SELFPAY ==
[2023-12-19] VITALS (44 sets, daily range): BP systolic 113–173; BP diastolic 68–94; PULSE 86–109; RESP 11–25; TEMP 36.5; O2SAT 85–99
--- NOTE | 2023-12-19 16:30 | RT.EKG_ITS ---
APPROVED REPORT Exam: Resting ECG Reason for Exam: Chest pain Patient Location: E HR:100 bpm ECG Measurements Heart Rate 100 AXIS AL 197 P 8 QRSd 78 QRS -12 QT 341 T 52 QTc 440 Conclusion Sinus tachycardia...rate> 99 Anterior infarct, old...Q >40mS, abnormal ST-T, V2-V5 Physician: no stemi
[2023-12-19 17:25] LABS: Abs Immature Grans 0.02 10^3/uL (0.0-0.06); Absolute Basophil Count 0.06 10^3/uL (0.0-0.2); Absolute Eosinophil Count 0.27 10^3/uL (0.0-0.7); Absolute Lymphocyte Count 1.44 10^3/uL (1.2-3.4); Absolute Monocyte Count 0.44 10^3/uL (0.1-0.8); Absolute Neutrophil Count 5.78 10^3/uL (1.2-6.7); Basophils % 0.7; Eosinophils % 3.4; HCT 34.9 % (36.0-46.0); HGB 11.6 g/dL (11.2-15.7); Immature Grans % 0.2; MCH 30.1 pg (27.0-33.0); MCHC 33.2 % (32.0-36.0); MCV 91 fL (80-95); MPV 9.2 fL (8.0-11.0); Monocytes % 5.5; Neutrophils % 72.2; Platelet Count 240 10^3/uL (130-400); RBC 3.85 10^6/uL (3.93-5.22); RDW 12.7 % (11.7-14.6); RDW-SD 41.4 fL; WBC 8.01 10^3/uL (4.4-10.8)
[2023-12-19 17:47] LABS: ALT 22 U/L (14-59); AST 13 U/L (15-37); Albumin 3.2 g/dL (3.4-5.0); Alkaline Phosphatase 121 U/L (46-116); Anion Gap 10.2 mmol/L (3-11); BUN 44 mg/dL (7-18); Bilirubin, Total 0.4 mg/dL (0.2-1.0); CO2 24.8 mmol/L (21.0-32.0); CREATININE 1.7 mg/dL (0.55-1.02); Chloride 106 mmol/L (98-107); Estimated GFR 33.49 (mL/min/1.73m2); Glucose 173 mg/dL (74-106); Lipase 14 U/L (16-77); NT-proBNP 165 pg/mL (<300); Potassium 4.5 mmol/L (3.5-5.1); Sodium 141 mmol/L (136-145); Total Protein 6.9 g/dL (6.4-8.2); Troponin I < 50 ng/L (< or =60)
[2023-12-19 18:26] LABS: D-Dimer 432 ng/mlFEU (<500)
--- NOTE | 2023-12-19 18:30 | DI.RAD_ITS ---
Exam(s) XR CHEST 2V PA LATERAL EXAM: XR CHEST 2V PA LATERAL CLINICAL HISTORY: chest pain. TECHNIQUE: 2D digital imaging was performed. COMPARISON: CR,XR XR PORTABLE CHEST AP from 09/20/2023 FINDINGS: 2 views: Heart size is normal. The mediastinum is not widened. Subtle patchy infiltrates in the mid left lung field noted. Right lung is clear. No pleural effusio ns. Regional bones unremarkable. IMPRESSION: Subtle suggestion of patchy left lung infiltrates. No obvious pleural effusions. DATA REPOSITORY: RADIATION DOSE DELIVERED:
--- NOTE | 2023-12-19 19:00 | ED.GENADUL_ITS ---
Discharge Plan Disposition Patient Disposition: Home Condition: Stable Discharge Details Clinical Impression: Atypical chest pain Primary Care Provider: Jeny Almonte ED Provider: Tea Huang Home Meds and New Rx's Prescriptions: Continued nystatin 100,000 unit/mL Suspension 5 ml PO QID PRN PRN naloxone [Narcan] 4 mg/actuation [place],Non-Aerosol 4 mg INTRANASAL PRN PRN (DME) rolling walker with seat Qty: 1 0RF Rx Instructions: As directed with ambulation insulin aspart U-100 [Novolog FlexPen U-100 Insulin] 300 UNITS/3 ML insulin pen 2 - 20 units Sub-Q 0800,1200,1700 Rx Instructions: Dispense one pen see sliding scale bupropion HCl 150 mg tablet sustained-release 12 hr 1 tab PO BID Patient Comments: TAKE ONE TABLET BY MOUTH TWICE A DAY lorazepam 0.5 mg tablet 0.5 mg PO BID PRN Patient Comments: TAKE ONE TABLET BY MOUTH EVERY 6 HOURS NEEDED FOR ANXIETY nitroglycerin [Nitrostat] 0.4 MG tablet, sublingual 0.4 mg Sublingual PRN PRN cyclobenzaprine 10 mg tablet 10 mg PO Q8H PRN PRN cetirizine 10 mg tablet 10 mg PO DAILY Patient Comments: no longer taking 05/19/23 MG hydrocodone-acetaminophen 5-325 mg tablet 1 tab PO Q8H PRN PRN Patient Comments: TAKE ONE TABLET BY MOUTH EVERY 6 TO 8 HOURS NEEDED cyanocobalamin (vitamin B-12) [Vitamin B-12] 1,000 mcg tablet 1,000 mcg PO DAILY Patient Comments: no longer taking 05/19/23 MG aspirin 81 mg tablet,delayed release (DR/EC) 81 mg PO DAILY Patient Comments: TAKE ONE TABLET BY MOUTH EVERY DAY pyridoxine (vitamin B6) 100 mg tablet 100 mg PO DAILY Patient Comments: no longer taking, insurance will not pay for 05/19/23 fluticasone propionate 50 mcg/actuation spray,suspension 1 spray INTRANASAL DAILY Patient Comments: INSTILL 2 SPRAYS NASALLY DAILY duloxetine 30 mg capsule,delayed release(DR/EC) 60 mg PO DAILY Patient Comments: TAKE ONE CAPSULE BY MOUTH EVERY DAY WITH 60MG duloxetine 60 mg capsule,delayed release(DR/EC) 60 mg PO DAILY Patient Comments: TAKE ONE CAPSULE BY MOUTH EVERY DAY dexlansoprazole [Dexilant] 60 mg capsule,biphase delayed releas 60 mg PO DAILY docusate sodium 250 mg Capsule 250 mg PO DAILY PRN insulin glargine [Basaglar KwikPen U-100 Insulin] 100 unit/mL (3 mL) insulin pen 30 unit SUBCUT BID Patient Comments: INJECT 60 UNITS SUBCUTANEOUSLY ONCE DAILY (30 UNITS EVERY MORNING AND 30 UNITS QPM) cholecalciferol (vitamin D3) [Vitamin D3] 25 mcg (1,000 unit) capsule 1,000 unit PO DAILY Patient Comments: no longer taking 05/19/23 MG magnesium citrate 100 mg Capsule 100 mg PO DAILY lidocaine [Lidoderm] 5 % adhesive patch,medicated 1 patch topical DAILY PRNQty: 15 0RF Rx Instructions: leave on most painful area for up to 12 hrs atorvastatin 80 mg tablet 40 mg PO BID Patient Comments: TAKE ONE TABLET AB BY MOUTH DAILY (cuts tab in half, takes morning and night to reduce side effects) clopidogrel 75 mg tablet 75 mg PO DAILY Patient Comments: TAKE ONE TABLET AB BY MOUTH DAILY metoprolol tartrate 25 mg tablet 12.5 mg PO BID Hold Instructions: provider placed on hold 09/17/23 fexofenadine [Daisy Allergy] 180 mg tablet 180 mg PO DAILY Hold Instructions: not taking, cant afford magnesium oxide 400 mg (241.3 mg magnesium) tablet 400 mg PO DAILY Patient Comments: TAKE ONE TABLET BY MOUTH THREE TIMES A DAY magnesium 250 mg tablet 250 mg PO DAILY lisinopril 2.5 mg tablet 2.5 mg PO DAILY Hold Instructions: until discussed with outpatient provider Patient Comments: TAKE ONE TABLET BY MOUTH EVERY DAY Discharge Instructions Instructions: Chest Pain (ED) Additional Instructions: Please follow-up with primary care physician next week for reassessment Continue on your prescribed medications Your tests today are all reassuring, however should you have persistent or worsening symptoms please return for reassessment Referrals: Jeny Almonte [Primary Care Provider] - 2 days Discharge Data Discharge Date/Time-TO BE ENTERED AT DEPARTURE: 12/19/23 20:59 HPI General Date/Time Provider Initiated Documentation: 12/19/23 16:40 . HPI Narrative: 63-year-old female with history as hyperglycemia, adrenal insufficiency, ISA, presyncope, coronary artery disease with stent placement presents with report of chest pain with radiation to the right side of her chest. Denies pleuritic component. States different from her typical discomfort for which she has been diagnosed with angina and takes nitroglycerin. Had a stent in place last year at [facility] per patient. States her pain came on today while she was in her bedroom looking for some clothing. Denies any significant exertion. Denies any tobacco use. Pain lasted approximately 1 hour and resolved on denies nausea, vomiting, diaphoresis. Denies any fever or c hills. Denies any trauma. Denies any calf pain or swelling, recent flights, surgeries, long drives. Denies known exacerbating or alleviating factors. She took 2 nitro without relief in pain aggravation. Related Data Home Medications Medication Instructions Recorded Confirmed nitroglycerin 0.4 mg sublingual 0.4 mg sublingual PRN PRN 06/01/17 11/21/23 tablet (Nitrostat) naloxone 4 mg/actuation nasal 4 mg intranasal PRN PRN 09/10/19 11/21/23 spray (Narcan) nystatin 100,000 unit/mL oral 5 ml PO QID PRN PRN 09/10/19 11/21/23 suspension rolling walker with seat #1 ea 01/12/20 09/07/23 aspirin 81 mg tablet,delayed 81 mg PO DAILY 06/24/20 11/21/23 release cetirizine 10 mg tablet 10 mg PO DAILY 06/24/20 11/21/23 cyanocobalamin (vitamin B-12) 1,000 mcg PO DAILY 06/24/20 11/21/23 1,000 mcg tablet (Vitamin B-12) cyclobenzaprine 10 mg tablet 10 mg PO Q8H PRN PRN 06/24/20 11/21/23 dexlansoprazole 60 mg 60 mg PO DAILY 06/24/20 11/21/23 capsule,biphase delayed release (Dexilant) duloxetine 30 mg capsule,delayed 60 mg PO DAILY 06/24/20 11/21/23 release duloxetine 60 mg capsule,delayed 60 mg PO DAILY 06/24/20 11/21/23 release fluticasone propionate 50 1 spray intranasal DAILY 06/24/20 11/21/23 mcg/actuation nasal spray,suspension hydrocodone 5 mg-acetaminophen 325 1 tab PO Q8H PRN PRN 06/24/20 11/21/23 mg tablet pyridoxine (vitamin B6) 100 mg 100 mg PO DAILY 06/24/20 11/21/23 tablet docusate sodium 250 mg capsule 250 mg PO DAILY PRN 07/16/20 11/21/23 insulin aspart U-100 100 unit/mL 2 - 20 units subcut 0800,1200,1700 11/15/20 11/21/23 (3 mL) subcutaneous pen (Novolog FlexPen U-100 Insulin aspart) bupropion HCl 150 mg tablet,12 hr 1 tab PO BID 02/07/22 11/21/23 sustained-release insulin glargine 100 unit/mL (3 30 unit subcut BID 02/10/22 11/21/23 mL) subcutaneous pen (Basaglar KwikPen U-100 Insulin) cholecalciferol (vitamin D3) 25 1,000 unit PO DAILY 02/20/23 11/21/23 mcg (1,000 unit) capsule (Vitamin D3) lidocaine 5 % topical patch 1 patch topical DAILY PRN #15 ea 02/20/23 11/21/23 (Lidoderm) magnesium citrate 100 mg capsule 100 mg PO DAILY 02/20/23 11/21/23 lorazepam 0.5 mg tablet 0.5 mg PO BID PRN 06/25/23 11/21/23 atorvastatin 80 mg tablet 40 mg PO BID 07/24/23 11/21/23 clopidogrel 75 mg tablet 75 mg PO DAILY 09/07/23 11/21/23 fexofenadine 180 mg tablet 180 mg PO DAILY 09/07/23 11/21/23 (Daisy Allergy) magnesium 250 mg tablet 250 mg PO DAILY 09/07/23 11/21/23 magnesium oxide 400 mg (241.3 mg 400 mg PO DAILY 09/07/23 11/21/23 magnesium) tablet metoprolol tartrate 25 mg tablet 12.5 mg PO BID 09/07/23 11/21/23 lisinopril 2.5 mg tablet 2.5 mg PO DAILY 09/17/23 11/21/23 Previous Rx's Medication Instructions Recorded rolling walker with seat #1 ea 01/12/20 lidocaine 5 % topical patch 1 patch topical DAILY PRN #15 ea 02/20/23 (Lidoderm) Allergies Allergy/AdvReac Type Severity Reaction Status Date / Time quetiapine [From Seroquel] Allergy Intermediate Nausea Unverified 11/21/23 19:52 amoxicillin [From Augmentin] Allergy Contraindic Unverified 11/21/23 19:52 ated clavulanic acid Allergy Contraindic Unverified 11/21/23 19:52 [From Augmentin] ated Penicillins Allergy Contraindic Unverified 11/21/23 19:52 ated Sulfa (Sulfonamide Allergy Contraindic Unverified 11/21/23 19:52 Antibiotics) ated exenatide [From [place]] AdvReac Intermediate diarrhea Unverified 11/21/23 19:52 metformin AdvReac Intermediate diarrhea Unverified 11/21/23 19:52 amitriptyline AdvReac made my Unverified 11/21/23 19:52 face go numb amoxicillin trihydrate AdvReac acute Unverified 11/21/23 19:52 [From Augmentin] kidney failure NSAIDS (Non-Steroidal AdvReac stage III Unverified 11/21/23 19:52 Anti-Inflamma kidney disease potassium clavulanate AdvReac acute Unverified 11/21/23 19:52 [From Augmentin] kidney failure General Stated Complaint: Chest Pain SADE: 2 Exam Narrative Exam Narrative: Alert and oriented 63-year-old female, pupils equal round reactive to light and accommodation Lungs clear to auscultation bilaterally, no respiratory distress, cardiac rate rhythm regular, no murmurs or rubs, no abdominal tenderness, no rashes or lesions, alert and oriented x 4, no peripheral edema, neurovascularly intact to all 4 extremities Course Vital Signs Vital signs: Vital Signs Temperature 36.5 C 12/19/23 16:33 Pulse 109 H 12/19/23 16:33 Respiratory Rate 20 12/19/23 16:33 Blood Pressure 135/80 12/19/23 16:33 Pulse Oximetry 98 12/19/23 16:33 Temperature 36.5 C 12/19/23 16:33 Pulse 93 H 12/19/23 18:00 Pulse 93 H 12/19/23 18:01 Respiratory Rate 15 12/19/23 18:01 Respiratory Effort Normal, Non-Labored 12/19/23 16:56 Respiratory Depth Normal 12/19/23 16:45 Respiratory Pattern Normal 12/19/23 16:45 Blood Pressure 148/75 H 12/19/23 18:00 Blood Pressure Mean 101 12/19/23 18:00 Blood Pressure Position Sitting 12/19/23 16:33 Pulse Oximetry 97 12/19/23 18:01 Oxygen Delivery Method Room Air 12/19/23 16:33 Oxygen Flow Rate 0 12/19/23 16:33 Lab/Test Results Lab/Test Results: Laboratory Tests Range/Units 12/19/23 17:15 WBC (4.4-10.8) 10^3/uL 8.01 RBC (3.93-5.22) 10^6/uL 3.85 L Hgb (11.2-15.7) g/dL 11.6 Hct (36.0-46.0) % 34.9 L MCV (80-95) fL 91 MCH (27.0-33.0) pg 30.1 MCHC (32.0-36.0) % 33.2 RDW (11.7-14.6) % 12.7 Plt Count (130-400) 10^3/uL 240 MPV (8.0-11.0) fL 9.2 Immature Gran % 0.2 Neutrophils % 72.2 Lymphocytes % 18.0 Monocytes % 5.5 Eosinophils % 3.4 Basophils % 0.7 Nucleated RBC % (0.0-0.3) % 0.0 Absolute Neutrophils (1.2-6.7) 10^3/uL 5.78 Absolute Lymphocytes (1.2-3.4) 10^3/uL 1.44 Absolute Monocytes (0.1-0.8) 10^3/uL 0.44 Absolute Eosinophils (0.0-0.7) 10^3/uL 0.27 Absolute Basophils (0.0-0.2) 10^3/uL 0.06 D-Dimer (<500) ng/mlFEU 432 Sodium (136-145) mmol/L 141 Potassium (3.5-5.1) mmol/L 4.5 Chloride (98-107) mmol/L 106 Carbon Dioxide (21.0-32.0) mmol/L 24.8 Anion Gap (3-11) mmol/L 10.2 BUN (7-18) mg/dL 44 H Creatinine (0.55-1.02) mg/dL 1.7 H Est GFR (CKD-EPI 2020) (mL/min/1.73m2) 33.49 Glucose (74-106) mg/dL 173 H Calcium (8.5-10.1) mg/dL 9.0 Total Bilirubin (0.2-1.0) mg/dL 0.4 AST (15-37) U/L 13 L ALT (14-59) U/L 22 Alkaline Phosphatase (46-116) U/L 121 H Troponin I (< or =60) ng/L < 50 NT-Pro-B Natriuret Pep (<300) pg/mL 165 Total Protein (6.4-8.2) g/dL 6.9 Albumin (3.4-5.0) g/dL 3.2 L Lipase (16-77) U/L 14 L Medical Decision Making This 63-year-old female known to this facility with visits frequently for chest discomfort presents with chest pain. Given patient's age and comorbidities I will order 2 troponins, EKG, EKG, please see attendings documentation does not show evidence of acute ischemia. Pain is resolved at time of reassessment and diagnostic labs are reassuring including 2 negative troponins and a D-dimer. I think it is reasonable at this time to discharge the patient home, she has been observed on telemetry for the past 3 and half hours without acute abnormality and is pain-free at time of reassessment. She will need to follow-up with her primary care physician on Friday and return earlier should she have new or worsening Quality:SDOH Health Related Social Needs: No Data to Display PFSH All Active Problems (Updated 12/19/23 @ 20:43 by WHIT Humphries) Atypical chest pain (Acute) Light-headed feeling (Acute) Hyperglycemia (Acute) Acute adrenal insufficiency (Acute) URI (upper respiratory infection) (Acute) Headache (Acute) Urinary tract infection (Acute) Atypical chest pain (Acute) Hypomagnesemia (Acute) COVID-19 (Acute) Coronary artery disease (Chronic) Chest pain (Acute) CAD (coronary atherosclerotic disease) (Acute) 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 (Acute) Type 1 diabetes mellitus with diabetic polyneuropathy (Acute) Primary osteoarthritis of both first carpometacarpal joints (Acute 12/22/17) Hypertension (Chronic) Insomnia (Acute) GERD (gastroesophageal reflux disease) (Chronic) Chronic kidney disease (Chronic) COPD (chronic obstructive pulmonary disease) (Chronic) Mixed anxiety depressive disorder (Acute) Medical History Acute exacerbation of chronic obstructive airways disease Acute sinusitis Allergic rhinitis Anemia Benign neoplasm of peripheral nerve Benign neoplasm of peripheral nerves and autonomic nervous system, unspecified Cataracts, bilateral Chronic renal impairment associated with type 2 diabetes mellitus CKD stage 3 due to type 2 diabetes mellitus Colon polyp Depression Diabetes pt reports elevated HgbA1c. 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 No complications. Coronary Stent Cholecystectomy Appendectomy Family History Brother Diabetes Hypertension Heart disease Stroke Obesity Chronic headaches Arthritis Brother Arthritis Chronic headaches Diabetes Heart disease Hypertension Obesity Stroke Father Heart disease Stroke Hypertension Chronic headaches Sister Diabetes Obesity Osteoporosis Daughter Migraine Obesity Brother Arthritis Diabetes Chronic headaches Hypertension Obesity Stroke Mother Asthma Arthritis Diabetes Obesity Stroke Glaucoma Social History Smoking/Tobacco Use Status: Former Tobacco Use Quit Date: 04/13/19 Pack-years: 45 Tobacco: How many years used: 45 Quit status: considering quitting Smoking risk assessment performed?: Yes Alcohol Intake: never Drug use: Never Substance use type: does not use Details: Quit smoking 6 months ago. Household members: friend(s) Housing: apartment Number of Children: 3 number of grandchildren: 14 current occupation: none What is your relationship status?: Panel score (0-1 are the most socially isolated patients): 0 What type of physical activity do you participate in: none Do you feel safe at home: Yes Do you feel safe in your relationship?: Yes PAWSS Have you Been Recently Intoxicated or Drunk Within the Last 30 days?: No Have you Ever Experienced Previous Episodes of Alcohol Withdrawal?: No Have you ever Experienced Withdrawal Seizures?: No Have you ever Experienced Delirium Tremens(DT)s?: No Have you ever undergone Alcohol Rehabilitation Treatment (i.e, inpt ot outpatient treatment programs)?: No Have you ever Experienced Blackouts?: No Have you ever Combined Alcohol with other Downers within the last 90 days?: No Have you ever Combined Alcohol with any other Substance of Abuse during the last 90 days?: No Positive Blood Alcohol level on Presentation? [PCS.BAL]: No Evidence of Increased Autonomic Activity (i.e. HR>120, tremor, sweating, agitation, nausea)?: No Result: 0
--- NOTE | 2023-12-19 19:14 | W.ED.PROC ---
Date of service: 12/19/23 Time of Service: 19:14 Procedures EJ/Peripheral Line Arm R: Time Out Performed: Yes Skin Cleansed in Sterile Fashion: Yes Size (gauge): 20 IV Secured and Dressing Applied: Yes Patient Tolerated Procedure: well Additional Comments: Candidate vein examined with linear array probe - confirmed collapsibility, lack of pulsatility, and proper anatomic location. Using aseptic technique, IV catheter inserted with flash of blood noted, flow of venous blood confirmed. Flushes easily and without pain. No hematoma or complications noted. IV secured. Patient tolerated well. Medical Decision Making Quality:SDOH Health Related Social Needs: No Data to Display
--- NOTE | 2023-12-19 19:53 | DI.VRAD_ITS ---
PROCEDURE INFORMATION: Exam: XR Chest Exam date and time: 12/19/2023 7:17 PM Age: 63 years old Clinical indication: Chest wall pain; Additional info: Chest pain TECHNIQUE: Imaging protocol: Radiologic exam of the chest. Views: 2 views. COMPARISON: CR XR PORTABLE CHEST AP 09/20/2023 10:14 PM FINDINGS: Lungs: Lung volumes are low with crowding of the pulmonary vasculature. No keesha pulmonary consolidation. Pleural spaces: Unremarkable. No pleural effusion. No pneumothorax. Heart/Mediastinum: Unremarkable. No cardiomegaly. Bones/joints: Unremarkable. IMPRESSION: Moderate hypoaeration changes. No definite acute infiltrate. Dictated and Authenticated by: Gene Leong MD. Ordering:LULY Metcalf MD
[2023-12-19 20:10] LABS: Bilirubin Negative (Negative); Blood Negative (Negative); Clarity Clear (Clear); Glucose Negative (Negative); Ketones Negative (Negative); Leukocyte Esterase Trace (Negative); Nitrite Negative (Negative); Urobilinogen 0.2 mg/dL (Up to 0.2)
[2023-12-19 20:18] LABS: Bacteria Negative HPF (Negative); Crystals Negative HPF (Negative); Epithelial Cells Many HPF (Negative); RBC 0-2 HPF (0-2)
[2023-12-19 20:19] LABS: C & S Indicated? No; Casts 0-2 Hyaline LPF (Negative); Mucus Negative (Negative)
[2023-12-19 20:32] LABS: Troponin I < 50 ng/L (< or =60)
== END 2023-12-19 20:59 | disposition home or self-care (01) ==
PROVIDERS: Emergency Provider Physician Assistant; PCP Nurse Practitioner Family
DX: R07.89 Other chest pain (principal); E10.22 Type 1 diabetes mellitus with diabetic chronic kidney disease; I12.9 Hypertensive chronic kidney disease with stage 1 through stage 4 chronic kidney disease, or unspecified chronic kidney disease; N18.30 Chronic kidney disease, stage 3 unspecified; I25.10 Atherosclerotic heart disease of native coronary artery without angina pectoris; E10.42 Type 1 diabetes mellitus with diabetic polyneuropathy; E10.319 Type 1 diabetes mellitus with unspecified diabetic 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 edema; Z95.5 Presence of coronary angioplasty implant and graft; Z79.4 Long term (current) use of insulin; Z79.82 Long term (current) use of aspirin; Z79.02 Long term (current) use of antithrombotics/antiplatelets
CPT/HCPCS: 80053; 83690; 93005; 99285; 71046; 81003; 81015; 83880; 84484; 85025; 85379; 93010; 99284

== ENCOUNTER 2024-04-20 13:26 | Emergency (ER) | payer OTHER, MEDICAID, SELFPAY ==
--- NOTE | 2024-04-20 13:15 | RT.EKG_ITS ---
APPROVED REPORT Exam: Resting ECG Reason for Exam: sob Patient Location: E HR:100 bpm ECG Measurements Heart Rate 100 AXIS SC 172 P -12 QRSd 79 QRS -26 QT 348 T 32 QTc 449 Conclusion Sinus tachycardia...rate> 99 Anterolateral infarct, old...Q>40mS, abnrm ST-T, V3-V6,I,aVL
[2024-04-20 13:28] VITALS: BP 112/70; PULSE 93; RESP 16; TEMP 37.4; O2SAT 96
--- NOTE | 2024-04-20 13:45 | DI.RAD_ITS ---
Exam(s) XR PORTABLE CHEST AP EXAM: XR PORTABLE CHEST AP CLINICAL HISTORY: SOB TECHNIQUE: 2D digital imaging was performed. COMPARISON: CR,XR XR CHEST 2V PA LATERAL from 09/07/2023 CR,XR XR PORTABLE CHEST AP from 09/20/2023 CR,XR XR CHEST 2V PA LATERAL from 12/19/2023 FINDINGS: Exam limited by poor pulmonary inflation and under penetration. Overlying monitoring leads and meta llic fasteners. LUNGS: No focal infiltrate visible. Increased interstitial markings may be in part chronic. Mild pu lmonary edema not excluded. No pleural abnormality seen. HEART: Difficult to evaluate due to poor inspiration. Coronary artery stent. Crowding of the pulmon juan vasculature. AORTA: Normal diameter. BONES: Unremarkable for age. Soft tissues: Unremarkable. IMPRESSION: Limited exam. Question of mild pulmonary edema. DATA REPOSITORY: RADIATION DOSE DELIVERED:
--- NOTE | 2024-04-20 14:11 | W.ED.GENAD ---
Discharge Plan Disposition Patient Disposition: Home Condition: Stable Discharge Details Clinical Impression: Shortness of breath, Pulmonary edema Primary Care Provider: Jeny Almonte ED Provider: Liat Morales Home Meds and New Rx's Prescriptions: Continued nystatin 100,000 unit/mL Suspension 5 ml PO QID PRN PRN naloxone [Narcan] 4 mg/actuation [place],Non-Aerosol 4 mg INTRANASAL PRN PRN (DME) rolling walker with seat Qty: 1 0RF Rx Instructions: As directed with ambulation insulin aspart U-100 [Novolog FlexPen U-100 Insulin] 300 UNITS/3 ML insulin pen 2 - 20 units Sub-Q 0800,1200,1700 Rx Instructions: Dispense one pen see sliding scale bupropion HCl 150 mg tablet sustained-release 12 hr 1 tab PO BID Patient Comments: TAKE ONE TABLET BY MOUTH TWICE A DAY lorazepam 0.5 mg tablet 0.5 mg PO BID PRN Patient Comments: TAKE ONE TABLET BY MOUTH EVERY 6 HOURS NEEDED FOR ANXIETY dexlansoprazole [Dexilant] 30 mg capsule,biphase delayed releas 30 mg PO DAILY isosorbide dinitrate 30 mg tablet 30 mg PO DAILY Patient Comments: TAKE ONE TABLET BY MOUTH EVERY DAY omeprazole 40 mg capsule,delayed release(DR/EC) 40 mg PO DAILY Patient Comments: TAKE ONE CAPSULE BY MOUTH EVERY DAY nitroglycerin [Nitrostat] 0.4 MG tablet, sublingual 0.4 mg Sublingual PRN PRN cyclobenzaprine 10 mg tablet 10 mg PO Q8H PRN PRN hydrocodone-acetaminophen 5-325 mg tablet 1 tab PO Q8H PRN PRN Patient Comments: TAKE ONE TABLET BY MOUTH EVERY 6 TO 8 HOURS NEEDED cyanocobalamin (vitamin B-12) [Vitamin B-12] 1,000 mcg tablet 1,000 mcg PO DAILY Patient Comments: no longer taking 05/19/23 MG aspirin 81 mg tablet,delayed release (DR/EC) 81 mg PO DAILY Patient Comments: TAKE ONE TABLET BY MOUTH EVERY DAY fluticasone propionate 50 mcg/actuation spray,suspension 1 spray INTRANASAL DAILY Patient Comments: INSTILL 2 SPRAYS NASALLY DAILY duloxetine 60 mg capsule,delayed release(DR/EC) 60 mg PO DAILY Patient Comments: TAKE ONE CAPSULE BY MOUTH EVERY DAY dexlansoprazole [Dexilant] 60 mg capsule,biphase delayed releas 60 mg PO DAILY docusate sodium 250 mg Capsule 250 mg PO DAILY PRN insulin glargine [Basaglar KwikPen U-100 Insulin] 100 unit/mL (3 mL) insulin pen 30 unit SUBCUT QPM Patient Comments: INJECT 60 UNITS SUBCUTANEOUSLY ONCE DAILY (30 UNITS EVERY MORNING AND 30 UNITS QPM) cholecalciferol (vitamin D3) [Vitamin D3] 25 mcg (1,000 unit) capsule 1,000 unit PO DAILY Patient Comments: no longer taking 05/19/23 MG lidocaine [Lidoderm] 5 % adhesive patch,medicated 1 patch topical DAILY PRNQty: 15 0RF Rx Instructions: leave on most painful area for up to 12 hrs atorvastatin 80 mg tablet 40 mg PO BID Patient Comments: TAKE ONE TABLET AB BY MOUTH DAILY (cuts tab in half, takes morning and night to reduce side effects) clopidogrel 75 mg tablet 75 mg PO DAILY Patient Comments: TAKE ONE TABLET AB BY MOUTH DAILY magnesium oxide 400 mg (241.3 mg magnesium) tablet 400 mg PO BID Patient Comments: TAKE ONE TABLET BY MOUTH THREE TIMES A DAY lisinopril 2.5 mg tablet 2.5 mg PO DAILY Patient Comments: TAKE ONE TABLET BY MOUTH EVERY DAY Discharge Instructions Instructions: Shortness of Breath, Adult ED Additional Instructions: No evidence of pneumonia, heart attack, or congestive heart failure today. Please keep your previously scheduled upcoming appointment with your PCP. Return to the ED for any worsening SOB, Chest Pain, Fever, Vomiting, or concerns. Referrals: Jeny Almonte [Primary Care Provider] - 3 days Discharge Data Discharge Date/Time-TO BE ENTERED AT DEPARTURE: 04/20/24 15:56 HPI General Mode of arrival: ambulatory. Date/Time Provider Initiated Documentation: 04/20/24 13:53. Limitations to Documentation: no limitations. Information obtained by: patient, RN notes reviewed and old records reviewed. HPI Narrative: 63-year-old female presents to the ER with chief complaint of shortness of breath x 1 week. She does have a history of COPD, stage IV chronic kidney disease. She reports that she has been doing fluid and has noted some lower extremity swelling. No pitting edema noted on exam here today. She does have a past medical history of fibromyalgia, pernicious anemia, PTSD, restless leg syndrome, hyperlipidemia hypomagnesemia, diabetes melitis, insulin-dependent, GERD. She denies any chest pain fever chills nausea vomiting diarrhea or any other associated symptoms. Denies any hemoptysis or hematochezia. Related Data Home Medications ?Medication ?Instructions ?Recorded ?Confirmed nitroglycerin 0.4 mg sublingual 0.4 mg sublingual PRN PRN 06/01/17 04/20/24 tablet (Nitrostat) naloxone 4 mg/actuation nasal 4 mg intranasal PRN PRN 09/10/19 04/20/24 spray (Narcan) nystatin 100,000 unit/mL oral 5 ml PO QID PRN PRN 09/10/19 04/20/24 suspension rolling walker with seat #1 ea 01/12/20 04/20/24 aspirin 81 mg tablet,delayed 81 mg PO DAILY 06/24/20 04/20/24 release cyanocobalamin (vitamin B-12) 1,000 mcg PO DAILY 06/24/20 04/20/24 1,000 mcg tablet (Vitamin B-12) cyclobenzaprine 10 mg tablet 10 mg PO Q8H PRN PRN 06/24/20 04/20/24 dexlansoprazole 60 mg 60 mg PO DAILY 06/24/20 04/20/24 capsule,biphase delayed release (Dexilant) duloxetine 60 mg capsule,delayed 60 mg PO DAILY 06/24/20 04/20/24 release fluticasone propionate 50 1 spray intranasal DAILY 06/24/20 04/20/24 mcg/actuation nasal spray,suspension hydrocodone 5 mg-acetaminophen 325 1 tab PO Q8H PRN PRN 06/24/20 04/20/24 mg tablet docusate sodium 250 mg capsule 250 mg PO DAILY PRN 07/16/20 04/20/24 insulin aspart U-100 100 unit/mL 2 - 20 units subcut 0800,1200,1700 11/15/20 04/20/24 (3 mL) subcutaneous pen (Novolog FlexPen U-100 Insulin aspart) bupropion HCl 150 mg tablet,12 hr 1 tab PO BID 02/07/22 04/20/24 sustained-release insulin glargine 100 unit/mL (3 30 unit subcut QPM 02/10/22 04/20/24 mL) subcutaneous pen (Basaglar KwikPen U-100 Insulin) cholecalciferol (vitamin D3) 25 1,000 unit PO DAILY 02/20/23 04/20/24 mcg (1,000 unit) capsule (Vitamin D3) lidocaine 5 % topical patch 1 patch topical DAILY PRN #15 ea 02/20/23 04/20/24 (Lidoderm) lorazepam 0.5 mg tablet 0.5 mg PO BID PRN 06/25/23 04/20/24 atorvastatin 80 mg tablet 40 mg PO BID 07/24/23 04/20/24 clopidogrel 75 mg tablet 75 mg PO DAILY 09/07/23 04/20/24 magnesium oxide 400 mg (241.3 mg 400 mg PO BID 09/07/23 04/20/24 magnesium) tablet lisinopril 2.5 mg tablet 2.5 mg PO DAILY 09/17/23 04/20/24 dexlansoprazole 30 mg 30 mg PO DAILY 04/20/24 04/20/24 capsule,biphase delayed release (Dexilant) isosorbide dinitrate 30 mg tablet 30 mg PO DAILY 04/20/24 04/20/24 omeprazole 40 mg capsule,delayed 40 mg PO DAILY 04/20/24 04/20/24 release Previous Rx's ?Medication ?Instructions ?Recorded rolling walker with seat #1 ea 01/12/20 lidocaine 5 % topical patch 1 patch topical DAILY PRN #15 ea 02/20/23 (Lidoderm) Allergies Allergy/AdvReac Type Severity Reaction Status Date / Time quetiapine (From Seroquel) Allergy Intermediate Nausea Unverified 04/20/24 13:41 amoxicillin (From Augmentin) Allergy Contraindic Unverified 04/20/24 13:41 ated clavulanic acid (From Allergy Contraindic Unverified 04/20/24 13:41 Augmentin) ated Penicillins Allergy Contraindic Unverified 04/20/24 13:41 ated Sulfa (Sulfonamide Allergy Contraindic Unverified 04/20/24 13:41 Antibiotics) ated exenatide (From [place]) AdvReac Intermediate diarrhea Unverified 04/20/24 13:41 metformin AdvReac Intermediate diarrhea Unverified 04/20/24 13:41 amitriptyline AdvReac made my Unverified 04/20/24 13:41 face go numb amoxicillin trihydrate (From AdvReac acute Unverified 04/20/24 13:41 Augmentin) kidney failure NSAIDS (Non-Steroidal AdvReac stage III Unverified 04/20/24 13:41 Anti-Inflamma kidney disease potassium clavulanate (From AdvReac acute Unverified 04/20/24 13:41 Augmentin) kidney failure General Stated Complaint: SOB SADE: 3 Review of Systems All systems reviewed & are unremarkable except as noted in HPI and below Cardiovascular Cardiovascular: Reports dyspnea Respiratory Respiratory: Denies cough, Denies hemoptysis, Reports dyspnea and Denies wheezing Allergic/Immunologic Allergic/Immunologic: Denies wheezing Exam Narrative Exam Narrative: Constitutional: Alert and oriented x3. Appears stated age. obese body habitus. Appears very pale. Head: Normocephalic, no trauma. Eyes: Pupils PERRL, Red reflex noted, EOM's intact. Eyelids symmetrical without lesions, discharge, or swelling. ENT: Bilateral TM's WNL, External ear normal to inspection, no mastoid TTP, swelling, or erythema, Nasal turbinates WNL, no nasal discharge. Normal dentition, Posterior pharynx WNL, no exudate. Chest: RRR, Normal S1, S2, distal pulses intact. Resp: Lungs clear to auscultation bilaterally, no wheezes, rales, or rhonchi. Abdomen: Soft, non-distended, Normoactive bowel sounds all 4 quads. Musculoskeletal: Normal gait, Moves all 4 extremities without difficulty. Skin: No suspicious rashes or lesions. Capillary refill less than 2 sec. Neurologic: Cranial nerves II-XII intact. Alert and oriented x 3. Motor: No deficits noted. Sensory: Intact bilaterally all 4 extremities. Hematologic/Lymphatic: No ecchymosis, no lymphadenopathy. Course Vital Signs Vital signs: Vital Signs Temperature 37.4 C 04/20/24 13:28 Pulse 93 H 04/20/24 13:28 Respiratory Rate 16 04/20/24 13:28 Blood Pressure 112/70 04/20/24 13:28 Pulse Oximetry 96 04/20/24 13:28 Temperature 37.4 C 04/20/24 13:28 Temperature Source Skin 04/20/24 13:28 Pulse 93 H 04/20/24 13:28 Respiratory Rate 16 04/20/24 13:28 Respiratory Effort Normal, Non-Labored 04/20/24 13:52 Blood Pressure 112/70 04/20/24 13:28 Blood Pressure Position Sitting 04/20/24 13:28 Pulse Oximetry 96 04/20/24 13:28 Oxygen Delivery Method Room Air 04/20/24 13:28 Oxygen Flow Rate 0 04/20/24 13:28 Pain Level 6 04/20/24 13:28 Comment arthritis in knees. 04/20/24 13:28 Medical Decision Making 63-year-old female presents to the ER with chief complaint of shortness of breath x 1 week. She does have a history of COPD, stage IV chronic kidney disease. She reports that she has been doing fluid and has noted some lower extremity swelling. No pitting edema noted on exam here today. She does have a past medical history of fibromyalgia, pernicious anemia, PTSD, restless leg syndrome, hyperlipidemia hypomagnesemia, diabetes melitis, insulin-dependent, GERD. She denies any chest pain fever chills nausea vomiting diarrhea or any other associated symptoms. Denies any hemoptysis or hematochezia. Workup ordered including CBC CMP serial troponins, EKG proBNP and Fluvid swab. Chest x-ray. Differential diagnosis includes not limited to pneumonia, viral illness, COPD exacerbation, CAD, CHF. Discussed results with patient and family who verbalized understanding. Plan to discharge with close follow-up with PCP setting. She does have an appointment for. I did encourage her to keep this. Patient has remained hemodynamically stable throughout the remainder of stay. This text was generated using [employer] system, please disregard any oddities of phrase or misspellings. Medical Records Medical records reviewed: Yes I reviewed the patient's medical records. Lab Data Lab results reviewed: Yes I reviewed the patient's lab results. Labs: Laboratory Tests Range/Units 04/20/24 04/20/24 14:24 16:53 WBC (4.4-10.8) 10^3/uL 7.21 RBC (3.93-5.22) 10^6/uL 3.57 L Hgb (11.2-15.7) g/dL 11.0 L Hct (36.0-46.0) % 32.9 L MCV (80-95) fL 92 MCH (27.0-33.0) pg 30.8 MCHC (32.0-36.0) % 33.4 RDW (11.7-14.6) % 12.9 Plt Count (130-400) 10^3/uL 226 MPV (8.0-11.0) fL 9.1 Immature Gran % % 0.4 Neutrophils % % 53.4 Lymphocytes % % 34.8 Monocytes % % 6.7 Eosinophils % % 3.9 Basophils % % 0.8 Nucleated RBC % (0.0-0.3) % 0.0 Absolute Neutrophils (1.2-6.7) 10^3/uL 3.85 Absolute Lymphocytes (1.2-3.4) 10^3/uL 2.51 Absolute Monocytes (0.1-0.8) 10^3/uL 0.48 Absolute Eosinophils (0.0-0.7) 10^3/uL 0.28 Absolute Basophils (0.0-0.2) 10^3/uL 0.06 VBG pH (7.31-7.41) 7.39 VBG pCO2 (41-51) mmHg 42 VBG pO2 mmHg 46 VBG HCO3 (23-28) mmol/L 26 VBG Total CO2 (24-29) mmol/L 24 VBG O2 Saturation % 82 VBG Base Excess (-2-3) mmol/L 1 Sodium (136-145) mmol/L 140 Potassium (3.5-5.1) mmol/L 4.6 Chloride (98-107) mmol/L 105 Carbon Dioxide (21.0-32.0) mmol/L 26.4 Anion Gap (3-11) mmol/L 8.6 BUN (7-18) mg/dL 43 H Creatinine (0.55-1.02) mg/dL 1.8 H Est GFR (CKD-EPI 2020) (mL/min/1.73m2) 31.27 Glucose (74-106) mg/dL 132 H Calcium (8.5-10.1) mg/dL 8.8 Magnesium (1.8-2.4) mg/dL 1.8 Total Bilirubin (0.2-1.0) mg/dL 0.29 AST (15-37) U/L 20 ALT (14-59) U/L 26 Alkaline Phosphatase (46-116) U/L 117 H Troponin I (< or =60) ng/L < 50 Cancelled NT-Pro-B Natriuret Pep (<300) pg/mL 127 Total Protein (6.4-8.2) g/dL 6.5 Albumin (3.4-5.0) g/dL 3.0 L Quality:SDOH Health Related Social Needs: No Data to Display PFSH All Active Problems (Updated 04/20/24 @ 15:28 by Liat Morales NP) Pulmonary edema (Acute) Shortness of breath (Acute) Hyperglycemia (Acute) Acute adrenal insufficiency (Acute) URI (upper respiratory infection) (Acute) Headache (Acute) Urinary tract infection (Acute) Atypical chest pain (Acute) Hypomagnesemia (Acute) COVID-19 (Acute) Coronary artery disease (Chronic) Chest pain (Acute) CAD (coronary atherosclerotic disease) (Acute) 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 (Acute) Type 1 diabetes mellitus with diabetic polyneuropathy (Acute) Primary osteoarthritis of both first carpometacarpal joints (Acute 12/22/17) Hypertension (Chronic) Insomnia (Acute) GERD (gastroesophageal reflux disease) (Chronic) Chronic kidney disease (Chronic) COPD (chronic obstructive pulmonary disease) (Chronic) Mixed anxiety depressive disorder (Acute) Medical History Fibromyalgia Panic disorder Mental disorder Pernicious anemia Proliferative retinopathy due to DM On meterman drug therapy Epigastric pain Diarrhea Wheezing Dupuytren's disease of palm Low back pain CKD stage 3 due to type 2 diabetes mellitus Acute exacerbation of chronic obstructive airways disease Allergic rhinitis 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 Insomnia Surgical History H/O lumpectomy Hx of tubal ligation section x2. No complications. Coronary Stent Cholecystectomy Appendectomy Family History Brother Diabetes Hypertension Heart disease Stroke Obesity Chronic headaches Arthritis Brother Arthritis Chronic headaches Diabetes Heart disease Hypertension Obesity Stroke Father Heart disease Stroke Hypertension Chronic headaches Sister Diabetes Obesity Osteoporosis Daughter Migraine Obesity Brother Arthritis Diabetes Chronic headaches Hypertension Obesity Stroke Mother Asthma Arthritis Diabetes Obesity Stroke Glaucoma Social History Smoking/Tobacco Use Status: Former Tobacco Use Quit Date: 04/13/19 Pack-years: 45 Tobacco: How many years used: 45 Quit status: considering quitting Smoking risk assessment performed?: Yes Alcohol Intake: never Drug use: Never Substance use type: does not use Details: Quit smoking 6 months ago. Household members: friend(s) Housing: apartment Number of Children: 3 number of grandchildren: 14 current occupation: none What is your relationship status?: Panel score (0-1 are the most socially isolated patients): 0 What type of physical activity do you participate in: none Do you feel safe at home: Yes Do you feel safe in your relationship?: Yes
[2024-04-20 14:29] LABS: BE (Venous) 1 mmol/L (-2-3); HCO3 (Venous) 26 mmol/L (23-28); O2 Sat (Venous) 82 %; TCO2 (Venous) 24 mmol/L (24-29); pCO2 (Venous) 42 mmHg (41-51); pH (Venous) 7.39 (7.31-7.41); pO2 (Venous) 46 mmHg
[2024-04-20 14:31] LABS: Abs Immature Grans 0.03 10^3/uL (0.0-0.06); Absolute Basophil Count 0.06 10^3/uL (0.0-0.2); Absolute Eosinophil Count 0.28 10^3/uL (0.0-0.7); Absolute Lymphocyte Count 2.51 10^3/uL (1.2-3.4); Absolute Monocyte Count 0.48 10^3/uL (0.1-0.8); Absolute Neutrophil Count 3.85 10^3/uL (1.2-6.7); Basophils % 0.8 %; Eosinophils % 3.9 %; HCT 32.9 % (36.0-46.0); Immature Grans % 0.4 %; Lymphocytes % 34.8 %; MCH 30.8 pg (27.0-33.0); MCHC 33.4 % (32.0-36.0); MCV 92 fL (80-95); MPV 9.1 fL (8.0-11.0); Monocytes % 6.7 %; Neutrophils % 53.4 %; Platelet Count 226 10^3/uL (130-400); RBC 3.57 10^6/uL (3.93-5.22); RDW 12.9 % (11.7-14.6); RDW-SD 43.5 fL; WBC 7.21 10^3/uL (4.4-10.8)
[2024-04-20 14:54] LABS: ALT 26 U/L (14-59); AST 20 U/L (15-37); Alkaline Phosphatase 117 U/L (46-116); Anion Gap 8.6 mmol/L (3-11); BUN 43 mg/dL (7-18); Bilirubin, Total 0.29 mg/dL (0.2-1.0); CO2 26.4 mmol/L (21.0-32.0); CREATININE 1.8 mg/dL (0.55-1.02); Calcium 8.8 mg/dL (8.5-10.1); Chloride 105 mmol/L (98-107); Estimated GFR 31.27 (mL/min/1.73m2); Glucose 132 mg/dL (74-106); Magnesium 1.8 mg/dL (1.8-2.4); NT-proBNP 127 pg/mL (<300); Potassium 4.6 mmol/L (3.5-5.1); Sodium 140 mmol/L (136-145); Total Protein 6.5 g/dL (6.4-8.2); Troponin I < 50 ng/L (< or =60)
== END 2024-04-20 15:56 | disposition home or self-care (01) ==
PROVIDERS: Emergency Provider Registered Nurse Emergency; PCP Nurse Practitioner Family
DX: J81.1 Chronic pulmonary edema; R00.0 Tachycardia, unspecified; J44.9 Chronic obstructive pulmonary disease, unspecified; E11.22 Type 2 diabetes mellitus with diabetic chronic kidney disease; N18.30 Chronic kidney disease, stage 3 unspecified; I10 Essential (primary) hypertension; E78.5 Hyperlipidemia, unspecified; Z79.4 Long term (current) use of insulin; Z79.82 Long term (current) use of aspirin; Z79.02 Long term (current) use of antithrombotics/antiplatelets
CPT/HCPCS: 80053; 82805; 82962; 87637; 93005; 99285; 71045; 83735; 83880; 84484; 85025; 93010; 99284

== ENCOUNTER 2024-05-05 08:37 | Emergency (ER) | payer OTHER, MEDICAID, SELFPAY ==
[2024-05-05] VITALS (28 sets, daily range): BP systolic 108–163; BP diastolic 53–94; PULSE 74–102; RESP 10–26; TEMP 36.4–36.8; O2SAT 92–100
--- NOTE | 2024-05-05 08:30 | RT.EKG_ITS ---
APPROVED REPORT Exam: Resting ECG Reason for Exam: Chest Pain Patient Location: E HR:102 bpm ECG Measurements Heart Rate 102 AXIS AL 177 P 20 QRSd 86 QRS -16 QT 360 T 53 QTc 468 Conclusion Sinus tachycardia...rate> 99 Inferior infarct, old...Q >35mS, II III aVF Consider anterior infarct...Q >30mS in V2-V5
--- NOTE | 2024-05-05 08:45 | DI.RAD_ITS ---
Exam(s) XR CHEST 2V PA LATERAL EXAM: XR CHEST 2V PA LATERAL CLINICAL HISTORY: chest pain TECHNIQUE: 2D digital imaging was performed. Two views. COMPARISON: CR,XR XR CHEST 2V PA LATERAL from 12/19/2023 CR XR PORTABLE CHEST AP from 04/20/2024 FINDINGS: HEART: Normal size. Coronary artery stent. Aorta: Not dilated. PULMONARY VASCULATURE: Normal. MEDIASTINUM: Unremarkable. LUNGS: Low lung volumes. Fibrotic changes. No focal infiltrate. No gross evidence of pulmonary tawny ma. PLEURAL SPACE: No pleural effusion or pneumothorax. BONE:Unremarkable for age. SOFT TISSUES: Unremarkable. IMPRESSION: Fibrotic changes. No acute abnormality. DATA REPOSITORY: RADIATION DOSE DELIVERED:
--- NOTE | 2024-05-05 08:54 | ED.GENADUL_ITS ---
Discharge Plan Disposition Patient Disposition: Home Condition: Stable Discharge Details Clinical Impression: Chest pain Primary Care Provider: Jeny Almonte ED Provider: Branden Sequeira Home Meds and New Rx's Prescriptions: Continued nystatin 100,000 unit/mL Suspension 5 ml PO QID PRN PRN naloxone [Narcan] 4 mg/actuation [place],Non-Aerosol 4 mg INTRANASAL PRN PRN (DME) rolling walker with seat Qty: 1 0RF Rx Instructions: As directed with ambulation insulin aspart U-100 [Novolog FlexPen U-100 Insulin] 300 UNITS/3 ML insulin pen 2 - 20 units Sub-Q 0800,1200,1700 Rx Instructions: Dispense one pen see sliding scale bupropion HCl 150 mg tablet sustained-release 12 hr 1 tab PO BID Patient Comments: TAKE ONE TABLET BY MOUTH TWICE A DAY lorazepam 0.5 mg tablet 0.5 mg PO BID PRN Patient Comments: TAKE ONE TABLET BY MOUTH EVERY 6 HOURS NEEDED FOR ANXIETY dexlansoprazole [Dexilant] 30 mg capsule,biphase delayed releas 30 mg PO DAILY isosorbide dinitrate 30 mg tablet 30 mg PO DAILY Patient Comments: TAKE ONE TABLET BY MOUTH EVERY DAY omeprazole 40 mg capsule,delayed release(DR/EC) 40 mg PO DAILY Patient Comments: TAKE ONE CAPSULE BY MOUTH EVERY DAY nitroglycerin [Nitrostat] 0.4 MG tablet, sublingual 0.4 mg Sublingual PRN PRN cyclobenzaprine 10 mg tablet 10 mg PO Q8H PRN PRN hydrocodone-acetaminophen 5-325 mg tablet 1 tab PO Q8H PRN PRN Patient Comments: TAKE ONE TABLET BY MOUTH EVERY 6 TO 8 HOURS NEEDED cyanocobalamin (vitamin B-12) [Vitamin B-12] 1,000 mcg tablet 1,000 mcg PO DAILY Patient Comments: no longer taking 05/19/ MG aspirin 81 mg tablet,delayed release (DR/EC) 81 mg PO DAILY Patient Comments: TAKE ONE TABLET BY MOUTH EVERY DAY fluticasone propionate 50 mcg/actuation spray,suspension 1 spray INTRANASAL DAILY Patient Comments: INSTILL 2 SPRAYS NASALLY DAILY duloxetine 60 mg capsule,delayed release(DR/EC) 60 mg PO DAILY Patient Comments: TAKE ONE CAPSULE BY MOUTH EVERY DAY dexlansoprazole [Dexilant] 60 mg capsule,biphase delayed releas 60 mg PO DAILY docusate sodium 250 mg Capsule 250 mg PO DAILY PRN insulin glargine [Basaglar KwikPen U-100 Insulin] 100 unit/mL (3 mL) insulin pen 30 unit SUBCUT QPM Patient Comments: INJECT 60 UNITS SUBCUTANEOUSLY ONCE DAILY (30 UNITS EVERY MORNING AND 30 UNITS QPM) cholecalciferol (vitamin D3) [Vitamin D3] 25 mcg (1,000 unit) capsule 1,000 unit PO DAILY Patient Comments: no longer taking 05/19/ MG lidocaine [Lidoderm] 5 % adhesive patch,medicated 1 patch topical DAILY PRNQty: 15 0RF Rx Instructions: leave on most painful area for up to 12 hrs atorvastatin 80 mg tablet 40 mg PO BID Patient Comments: TAKE ONE TABLET AB BY MOUTH DAILY (cuts tab in half, takes morning and night to reduce side effects) clopidogrel 75 mg tablet 75 mg PO DAILY Patient Comments: TAKE ONE TABLET AB BY MOUTH DAILY magnesium oxide 400 mg (241.3 mg magnesium) tablet 400 mg PO BID Patient Comments: TAKE ONE TABLET BY MOUTH THREE TIMES A DAY lisinopril 2.5 mg tablet 2.5 mg PO DAILY Patient Comments: TAKE ONE TABLET BY MOUTH EVERY DAY Discharge Instructions Additional Instructions: Your workup today did not show any concerning findings Follow-up with your primary care provider soon as possible If you feel more ill or have new symptoms such as severe worsening pain or difficulty breathing return to the emergency department for reevaluation HPI General Mode of arrival: EMS . Date/Time Provider Initiated Documentation: 05/05/24 08:45 . Limitations to Documentation: no limitations . History of Present Illness 63 year old F presents to the emergency department with the chief complaint of chest pain, described as moderate, Quality is described as aching, and is localized to the chest. Patient reports no radiation. and it has been constant. No relieving factors improve symptom(s), No exacerbating factors reported . Patient notes chest pain; denies fever/chills and shortness of breath. Patient did receive the following treatments prior to arrival, none Related Data Home Medications ?Medication ?Instructions ?Recorded ?Confirmed nitroglycerin 0.4 mg sublingual 0.4 mg sublingual PRN PRN 06/01/17 05/05/24 tablet (Nitrostat) naloxone 4 mg/actuation nasal 4 mg intranasal PRN PRN 09/10/19 05/05/24 spray (Narcan) nystatin 100,000 unit/mL oral 5 ml PO QID PRN PRN 09/10/19 05/05/24 suspension rolling walker with seat #1 ea 01/12/20 05/05/24 aspirin 81 mg tablet,delayed 81 mg PO DAILY 06/24/20 05/05/24 release cyanocobalamin (vitamin B-12) 1,000 mcg PO DAILY 06/24/20 05/05/24 1,000 mcg tablet (Vitamin B-12) cyclobenzaprine 10 mg tablet 10 mg PO Q8H PRN PRN 06/24/20 05/05/24 dexlansoprazole 60 mg 60 mg PO DAILY 06/24/20 05/05/24 capsule,biphase delayed release (Dexilant) duloxetine 60 mg capsule,delayed 60 mg PO DAILY 06/24/20 05/05/24 release fluticasone propionate 50 1 spray intranasal DAILY 06/24/20 05/05/24 mcg/actuation nasal spray,suspension hydrocodone 5 mg-acetaminophen 325 1 tab PO Q8H PRN PRN 06/24/20 05/05/24 mg tablet docusate sodium 250 mg capsule 250 mg PO DAILY PRN 07/16/20 05/05/24 insulin aspart U-100 100 unit/mL 2 - 20 units subcut 0800,1200,1700 11/15/20 05/05/24 (3 mL) subcutaneous pen (Novolog FlexPen U-100 Insulin aspart) bupropion HCl 150 mg tablet,12 hr 1 tab PO BID 02/07/22 05/05/24 sustained-release insulin glargine 100 unit/mL (3 30 unit subcut QPM 02/10/22 05/05/24 mL) subcutaneous pen (Basaglar KwikPen U-100 Insulin) cholecalciferol (vitamin D3) 25 1,000 unit PO DAILY 02/20/23 05/05/24 mcg (1,000 unit) capsule (Vitamin D3) lidocaine 5 % topical patch 1 patch topical DAILY PRN #15 ea 02/20/23 05/05/24 (Lidoderm) lorazepam 0.5 mg tablet 0.5 mg PO BID PRN 06/25/23 05/05/24 atorvastatin 80 mg tablet 40 mg PO BID 07/24/23 05/05/24 clopidogrel 75 mg tablet 75 mg PO DAILY 09/07/23 05/05/24 magnesium oxide 400 mg (241.3 mg 400 mg PO BID 09/07/23 05/05/24 magnesium) tablet lisinopril 2.5 mg tablet 2.5 mg PO DAILY 09/17/23 05/05/24 dexlansoprazole 30 mg 30 mg PO DAILY 04/20/24 05/05/24 capsule,biphase delayed release (Dexilant) isosorbide dinitrate 30 mg tablet 30 mg PO DAILY 04/20/24 05/05/24 omeprazole 40 mg capsule,delayed 40 mg PO DAILY 04/20/24 05/05/24 release Previous Rx's ?Medication ?Instructions ?Recorded rolling walker with seat #1 ea 01/12/20 lidocaine 5 % topical patch 1 patch topical DAILY PRN #15 ea 02/20/23 (Lidoderm) Allergies Allergy/AdvReac Type Severity Reaction Status Date / Time quetiapine (From Seroquel) Allergy Intermediate Nausea Unverified 04/20/24 13:41 amoxicillin (From Augmentin) Allergy Contraindic Unverified 04/20/24 13:41 ated clavulanic acid (From Allergy Contraindic Unverified 04/20/24 13:41 Augmentin) ated Penicillins Allergy Contraindic Unverified 04/20/24 13:41 ated Sulfa (Sulfonamide Allergy Contraindic Unverified 04/20/24 13:41 Antibiotics) ated exenatide (From [place]) AdvReac Intermediate diarrhea Unverified 04/20/24 13:41 metformin AdvReac Intermediate diarrhea Unverified 04/20/24 13:41 amitriptyline AdvReac made my Unverified 04/20/24 13:41 face go numb amoxicillin trihydrate (From AdvReac acute Unverified 04/20/24 13:41 Augmentin) kidney failure NSAIDS (Non-Steroidal AdvReac stage III Unverified 04/20/24 13:41 Anti-Inflamma kidney disease potassium clavulanate (From AdvReac acute Unverified 04/20/24 13:41 Augmentin) kidney failure General Stated Complaint: Chest Pain SADE: 2 Review of Systems All systems reviewed & are unremarkable except as noted in HPI and below Constitutional Constitutional: Denies chills, Denies fever(s) and Denies weakness Cardiovascular Cardiovascular: Reports chest pain and Denies dyspnea Respiratory Respiratory: Denies cough and Denies dyspnea Gastrointestinal Gastrointestinal: Denies abdominal pain, Reports nausea and Denies vomiting Musculoskeletal Musculoskeletal: Denies joint swelling Neurologic Neurologic: Denies weakness Exam Const General: no acute distress Orientation: alert [facility] Head: normal to inspection Ears: external ears normal General nose exam: external nose normal Mouth: moist mucous membranes Eyes General: appearance normal, both eyes and all related structures Neck Neck: normal visual inspection Resp Effort & Inspection: normal respiratory effort and able to speak in complete sentences Auscultation: clear to auscultation bilaterally Cardio Jugular venous pressure: no JVD Rate: regular rate Heart Sounds: no murmurs GI Palpation: soft and nontender Skin General skin exam: no rashes or lesions noted Neuro General: patient alert and patient oriented x3 Extrem General: normal to inspection Psych Mental Status: mental status grossly normal Course Vital Signs Vital signs: Vital Signs Temperature 36.4 C 05/05/24 08:38 Pulse 102 H 05/05/24 08:38 Respiratory Rate 22 05/05/24 08:38 Blood Pressure 163/67 H 05/05/24 08:38 Pulse Oximetry 100 05/05/24 08:38 Temperature 36.4 C 05/05/24 08:38 Temperature Source Oral 05/05/24 08:38 Pulse 102 H 05/05/24 08:38 Respiratory Rate 22 05/05/24 08:38 Blood Pressure 163/67 H 05/05/24 08:38 Blood Pressure Position Sitting 05/05/24 08:38 Pulse Oximetry 100 05/05/24 08:38 Oxygen Delivery Method Room Air 05/05/24 08:38 Oxygen Flow Rate 0 05/05/24 08:38 Pain Level 5 05/05/24 08:38 Medical Decision Making 63-year-old female with history of fibromyalgia, panic disorder, diabetes, chronic kidney disease, coronary artery disease status post stenting, comes in with EMS with chest pain starting this morning while she was using her phone playing games. She says she has had some nausea but no vomiting, no diaphoresis, no difficulty breathing, no abdominal pain. She says that her arm felt numb earlier but has not now, localized to the right arm. She is alert and oriented x 4 on arrival and in no distress. She says she took 4 nitro at home without relief of her pain. She says it is an aching in the anterior chest. Does not radiate anywhere. She has a soft nontender abdomen, clear lungs, equal peripheral pulses. Suspect this could be chest wall pain given she has reproducible anterior chest wall pain. Given her history we will check troponins, CBC, CMP and a chest x-ray. She has no tearing back pain to suggest dissection and equal peripheral pulses. She has no hypoxia and heart rate has never been over 105 and has no evidence of DVT on exam so doubt PE. Patient stable, labs show no significant abnormalities including 2 negative high-sensitivity troponins. Patient sleeping on reassessment and awakens easily to voice and has no symptoms. I discussed results with her and discussed admitting for observation versus discharge with outpatient follow-up she prefers to have outpatient follow-up which I feel is reasonable given reassuring workup today. She is stable for discharge and will follow-up with her PCP, return precautions given Differential Diagnosis Differential Diagnosis: nstemi, chest wall pain, pneumonia Medical Records Medical records reviewed: Yes I reviewed the patient's medical records. Imaging Data Radiologic Study: Attestation: I personally reviewed and interpreted this imaging study as follows: Imaging: X-Ray Radiologist's impression: no acute findings Lab Data Lab results reviewed: Yes I reviewed the patient's lab results. ECG Data Attestation: I personally reviewed and interpreted this ECG (s) as follows: Prior ECG tracings: available for review Interpretation: sinus tachycardia rate of 102 no stemi Quality:SDOH Health Related Social Needs: No Data to Display PFSH All Active Problems (Updated 05/05/24 @ 10:59 by Branden Sequeira MD) Pulmonary edema (Acute) Shortness of breath (Acute) Hyperglycemia (Acute) Acute adrenal insufficiency (Acute) URI (upper respiratory infection) (Acute) Headache (Acute) Urinary tract infection (Acute) Atypical chest pain (Acute) Hypomagnesemia (Acute) COVID-19 (Acute) Coronary artery disease (Chronic) Chest pain (Acute) CAD (coronary atherosclerotic disease) (Acute) 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 (Acute) Type 1 diabetes mellitus with diabetic polyneuropathy (Acute) Primary osteoarthritis of both first carpometacarpal joints (Acute 12/22/17) Hypertension (Chronic) Insomnia (Acute) GERD (gastroesophageal reflux disease) (Chronic) Chronic kidney disease (Chronic) COPD (chronic obstructive pulmonary disease) (Chronic) Mixed anxiety depressive disorder (Acute) Medical History Fibromyalgia Panic disorder Mental disorder Pernicious anemia Proliferative retinopathy due to DM 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 Epigastric pain Diarrhea Wheezing Dupuytren's disease of palm Low back pain CKD stage 3 due to type 2 diabetes mellitus Acute exacerbation of chronic obstructive airways disease Allergic rhinitis 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 Insomnia Surgical History H/O lumpectomy Hx of tubal ligation section x2. No complications. Coronary Stent Cholecystectomy Appendectomy Family History Brother Diabetes Hypertension Heart disease Stroke Obesity Chronic headaches Arthritis Brother Arthritis Chronic headaches Diabetes Heart disease Hypertension Obesity Stroke Father Heart disease Stroke Hypertension Chronic headaches Sister Diabetes Obesity Osteoporosis Daughter Migraine Obesity Brother Arthritis Diabetes Chronic headaches Hypertension Obesity Stroke Mother Asthma Arthritis Diabetes Obesity Stroke Glaucoma Social History Smoking/Tobacco Use Status: Former Tobacco Use Quit Date: 04/13/19 Pack-years: 45 Tobacco: How many years used: 45 Quit status: considering quitting Smoking risk assessment performed?: Yes Alcohol Intake: never Drug use: Never Substance use type: does not use Details: Quit smoking 6 months ago. Household members: friend(s) Housing: apartment Number of Children: 3 number of grandchildren: 14 current occupation: none What is your relationship status?: Panel score (0-1 are the most socially isolated patients): 0 What type of physical activity do you participate in: none Do you feel safe at home: Yes Do you feel safe in your relationship?: Yes
[2024-05-05 08:58] LABS: BE (Venous) -1 mmol/L (-2-3); HCO3 (Venous) 24 mmol/L (23-28); O2 Sat (Venous) 66 %; TCO2 (Venous) 22 mmol/L (24-29); pCO2 (Venous) 39 mmHg (41-51); pH (Venous) 7.39 (7.31-7.41); pO2 (Venous) 35 mmHg
[2024-05-05 08:59] LABS: Abs Immature Grans 0.05 10^3/uL (0.0-0.06); Absolute Basophil Count 0.09 10^3/uL (0.0-0.2); Absolute Eosinophil Count 0.38 10^3/uL (0.0-0.7); Absolute Lymphocyte Count 2.49 10^3/uL (1.2-3.4); Absolute Monocyte Count 0.65 10^3/uL (0.1-0.8); Basophils % 0.9 %; Eosinophils % 3.9 %; HCT 37.9 % (36.0-46.0); HGB 12.7 g/dL (11.2-15.7); Immature Grans % 0.5 %; Lymphocytes % 25.5 %; MCH 30.5 pg (27.0-33.0); MCHC 33.5 % (32.0-36.0); MCV 91 fL (80-95); MPV 9.5 fL (8.0-11.0); Monocytes % 6.7 %; Neutrophils % 62.5 %; Platelet Count 295 10^3/uL (130-400); RBC 4.17 10^6/uL (3.93-5.22); RDW 13.2 % (11.7-14.6); RDW-SD 43.1 fL; WBC 9.76 10^3/uL (4.4-10.8)
[2024-05-05] MEDS: fentaNYL 100 MCG/2 ML VIAL 50 MCG IVP (09:00)
[2024-05-05] MEDS: Droperidol 5 MG/2 ML VIAL 2.5 MG IVP (09:00)
[2024-05-05 09:15] LABS: PTT Activated 26.3 sec (23.6-32.8); Prothrombin Time 9.7 sec (9.1-11.1)
[2024-05-05 09:25] LABS: ALT 22 U/L (14-59); AST 16 U/L (15-37); Albumin 3.6 g/dL (3.4-5.0); Alkaline Phosphatase 129 U/L (46-116); Anion Gap 9.9 mmol/L (3-11); BUN 39 mg/dL (7-18); Bilirubin, Total 0.46 mg/dL (0.2-1.0); CO2 25.1 mmol/L (21.0-32.0); CREATININE 1.7 mg/dL (0.55-1.02); Calcium 9.7 mg/dL (8.5-10.1); Chloride 105 mmol/L (98-107); Estimated GFR 33.49 (mL/min/1.73m2); Glucose 110 mg/dL (74-106); Lipase 25 U/L (16-77); Magnesium 1.6 mg/dL (1.8-2.4); NT-proBNP 134 pg/mL (<300); Potassium 4.1 mmol/L (3.5-5.1); Sodium 140 mmol/L (136-145); Total Protein 7.8 g/dL (6.4-8.2); Troponin I 6 ng/L (4-51)
[2024-05-05 09:50] LABS: COVID-19 PCR Negative (Negative); Influenza A PCR Negative (Negative); Influenza B PCR Negative (Negative); RSV PCR Negative (Negative)
[2024-05-05 09:52] LABS: Source Nasopharynx
[2024-05-05 10:30] LABS: Procalcitonin < 0.1 ng/mL
[2024-05-05 10:31] LABS: Troponin I 5 ng/L (4-51)
[2024-05-05 10:58] LABS: Bilirubin Negative (Negative); Blood Negative (Negative); Clarity Sl Cloudy (Clear); Glucose Negative (Negative); Ketones Negative (Negative); Leukocyte Esterase Negative (Negative); Nitrite Negative (Negative); Specific Gravity 1.025 (1.005-1.025); Urobilinogen 0.2 mg/dL (Up to 0.2); pH 5.5 (5-8)
== END 2024-05-05 11:51 | disposition home or self-care (01) ==
PROVIDERS: Emergency Provider Emergency Medicine; PCP Nurse Practitioner Family
DX: R07.9 Chest pain, unspecified (principal); R20.0 Anesthesia of skin; R00.0 Tachycardia, unspecified; E10.22 Type 1 diabetes mellitus with diabetic chronic kidney disease; I12.9 Hypertensive chronic kidney disease with stage 1 through stage 4 chronic kidney disease, or unspecified chronic kidney disease; N18.30 Chronic kidney disease, stage 3 unspecified; E10.3599 Type 1 diabetes mellitus with proliferative diabetic 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 edema, unspecified eye; J44.9 Chronic obstructive pulmonary disease, unspecified; E78.5 Hyperlipidemia, unspecified; Z95.5 Presence of coronary angioplasty implant and graft; Z79.02 Long term (current) use of antithrombotics/antiplatelets; Z79.4 Long term (current) use of insulin; Z79.82 Long term (current) use of aspirin; I25.10 Atherosclerotic heart disease of native coronary artery without angina pectoris; Z87.891 Personal history of nicotine dependence
CPT/HCPCS: 80053; 82805; 83690; 84145; 87637; 93005; 96374; 96375; 99285; 71046; 81003; 83735; 83880; 84484; 85025; 85610; 85730; 93010; 99284; J1790; J3010

== ENCOUNTER 2024-09-14 09:28 | Emergency (ER) | payer MEDICARE, MEDICAID, SELFPAY ==
[2024-09-14] VITALS (21 sets, daily range): BP systolic 146–158; BP diastolic 70–90; PULSE 76–89; RESP 12–29; TEMP 36.3–36.7; O2SAT 95–99
--- NOTE | 2024-09-14 09:15 | RT.EKG_ITS ---
APPROVED REPORT Exam: Resting ECG Reason for Exam: Chest Pain Patient Location: E HR:85 bpm ECG Measurements Heart Rate 85 AXIS AL 189 P 20 QRSd 82 QRS -18 QT 363 T 49 QTc 433 Conclusion Sinus rhythm, rate 85 No interval abnormalities Q waves III, aVF consistent with old [place] No STEMI
[2024-09-14 09:57] LABS: Abs Immature Grans 0.03 10^3/uL (0.0-0.06); Absolute Basophil Count 0.05 10^3/uL (0.0-0.2); Absolute Eosinophil Count 0.24 10^3/uL (0.0-0.7); Absolute Lymphocyte Count 2.26 10^3/uL (1.2-3.4); Absolute Monocyte Count 0.51 10^3/uL (0.1-0.8); Absolute Neutrophil Count 3.87 10^3/uL (1.2-6.7); Basophils % 0.7 %; Eosinophils % 3.4 %; HCT 35.8 % (36.0-46.0); HGB 11.7 g/dL (11.2-15.7); Immature Grans % 0.4 %; Lymphocytes % 32.5 %; MCH 30.4 pg (27.0-33.0); MCHC 32.7 % (32.0-36.0); MCV 93 fL (80-95); MPV 9.6 fL (8.0-11.0); Monocytes % 7.3 %; Neutrophils % 55.7 %; Platelet Count 244 10^3/uL (130-400); RBC 3.85 10^6/uL (3.93-5.22); RDW 12.8 % (11.7-14.6); RDW-SD 43.4 fL; WBC 6.96 10^3/uL (4.4-10.8)
[2024-09-14 10:17] LABS: ALT 17 U/L (14-59); AST 18 U/L (15-37); Albumin 3.1 g/dL (3.4-5.0); Alkaline Phosphatase 116 U/L (46-116); Anion Gap 8.8 mmol/L (3-11); BUN 63 mg/dL (7-18); Bilirubin, Total 0.19 mg/dL (0.2-1.0); CO2 25.2 mmol/L (21.0-32.0); CREATININE 1.7 mg/dL (0.55-1.02); Calcium 9.1 mg/dL (8.5-10.1); Chloride 107 mmol/L (98-107); Estimated GFR 33.28 (mL/min/1.73m2); Glucose 104 mg/dL (74-106); Lipase 18 U/L (<78); Magnesium 1.7 mg/dL (1.8-2.4); Potassium 5.1 mmol/L (3.5-5.1); Sodium 141 mmol/L (136-145); Total Protein 6.8 g/dL (6.4-8.2); Troponin I 7 ng/L (<or=51)
[2024-09-14 10:30] LABS: D-Dimer 348 ng/mlFEU (<500)
--- NOTE | 2024-09-14 10:43 | DI.RAD_ITS ---
Exam(s) XR CHEST 2V PA LATERAL EXAM: XR CHEST 2V PA LATERAL CLINICAL HISTORY: Chest pain. TECHNIQUE: 2D digital imaging was performed. COMPARISON: CR XR PORTABLE CHEST AP from 04/20/2024 CR XR CHEST 2V PA LATERAL from 05/05/2024 FINDINGS: 2 views: Heart size is upper normal. Coronary artery stent again noted. The mediastinum is not widened. Increased interstitial markings again noted throughout both lung coyne; chronic. No pleural effusio ns. IMPRESSION: Bilateral interstitial pattern which appears to be chronic. Cannot exclude subtle superimposed patch y infiltrates. If there is suspicion for pneumonia than CT imaging would add sensitivity/specificity . DATA REPOSITORY: RADIATION DOSE DELIVERED:
--- NOTE | 2024-09-14 10:55 | W.ED.GENAD ---
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 Primary Care Provider: Jeny Almonte ED Provider: Sugey Gleason Home Meds and New Rx's Prescriptions: No Action nystatin 100,000 unit/mL Suspension 5 ml PO QID PRN PRN naloxone [Narcan] 4 mg/actuation [place],Non-Aerosol 4 mg INTRANASAL PRN PRN (DME) rolling walker with seat Qty: 1 0RF Rx Instructions: As directed with ambulation insulin aspart U-100 [Novolog FlexPen U-100 Insulin] 300 UNITS/3 ML insulin pen 2 - 20 units Sub-Q 0800,1200,1700 Rx Instructions: Dispense one pen see sliding scale bupropion HCl 150 mg tablet sustained-release 12 hr 1 tab PO BID Patient Comments: TAKE ONE TABLET BY MOUTH TWICE A DAY lorazepam 0.5 mg tablet 0.5 mg PO BID PRN Patient Comments: TAKE ONE TABLET BY MOUTH EVERY 6 HOURS NEEDED FOR ANXIETY dexlansoprazole [Dexilant] 30 mg capsule,biphase delayed releas 30 mg PO DAILY isosorbide dinitrate 30 mg tablet 30 mg PO DAILY Patient Comments: TAKE ONE TABLET BY MOUTH EVERY DAY omeprazole 40 mg capsule,delayed release(DR/EC) 40 mg PO DAILY Patient Comments: TAKE ONE CAPSULE BY MOUTH EVERY DAY nitroglycerin [Nitrostat] 0.4 MG tablet, sublingual 0.4 mg Sublingual PRN PRN cyclobenzaprine 10 mg tablet 10 mg PO Q8H PRN PRN hydrocodone-acetaminophen 5-325 mg tablet 1 tab PO Q8H PRN PRN Patient Comments: TAKE ONE TABLET BY MOUTH EVERY 6 TO 8 HOURS NEEDED aspirin 81 mg tablet,delayed release (DR/EC) 81 mg PO DAILY Patient Comments: TAKE ONE TABLET BY MOUTH EVERY DAY fluticasone propionate 50 mcg/actuation spray,suspension 1 spray INTRANASAL DAILY Patient Comments: INSTILL 2 SPRAYS NASALLY DAILY duloxetine 60 mg capsule,delayed release(DR/EC) 60 mg PO DAILY Patient Comments: TAKE ONE CAPSULE BY MOUTH EVERY DAY dexlansoprazole [Dexilant] 60 mg capsule,biphase delayed releas 60 mg PO DAILY docusate sodium 250 mg Capsule 250 mg PO DAILY PRN insulin glargine [Basaglar KwikPen U-100 Insulin] 100 unit/mL (3 mL) insulin pen 30 unit SUBCUT QPM Patient Comments: INJECT 60 UNITS SUBCUTANEOUSLY ONCE DAILY (30 UNITS EVERY MORNING AND 30 UNITS QPM) cholecalciferol (vitamin D3) [Vitamin D3] 25 mcg (1,000 unit) capsule 1,000 unit PO DAILY Patient Comments: no longer taking 05/19/ MG lidocaine [Lidoderm] 5 % adhesive patch,medicated 1 patch topical DAILY PRNQty: 15 0RF Rx Instructions: leave on most painful area for up to 12 hrs atorvastatin 80 mg tablet 40 mg PO BID Patient Comments: TAKE ONE TABLET AB BY MOUTH DAILY (cuts tab in half, takes morning and night to reduce side effects) clopidogrel 75 mg tablet 75 mg PO DAILY Patient Comments: TAKE ONE TABLET AB BY MOUTH DAILY magnesium oxide 400 mg (241.3 mg magnesium) tablet 400 mg PO BID lisinopril 2.5 mg tablet 2.5 mg PO DAILY Patient Comments: TAKE ONE TABLET BY MOUTH EVERY DAY Discharge Instructions Instructions: Chest Pain (DC) Additional Instructions: You were seen in the emergency department today for evaluation of chest pain. In our department you had a full physical examination performed, and had laboratory studies that were reassuring including 2 negative troponins. Your EKG does not show signs of heart attack, and your chest x-ray is unchanged from your normal, and there was no sign on our workup for blood clots, heart failure, etc. You need to follow-up with your capacity analyst to discuss whether or not you are due for another stress test, and certainly should return to the emergency department if you develop worsening chest pain, shortness of breath, or any other symptoms that cause you concern. Please follow-up with your primary care provider in the next few days to discuss this visit and any symptoms that change, worsen, or persist. Thank you for allowing us to be part of your care. Discharge Data Discharge Date/Time-TO BE ENTERED AT DEPARTURE: 09/14/24 12:10 HPI General Mode of arrival: EMS. Date/Time Provider Initiated Documentation: 09/14/24 09:47. Limitations to Documentation: no limitations. Information obtained by: patient, EMS and old records reviewed. HPI Narrative: HPI: This is a 64-year-old female patient with a past medical history significant for coronary artery disease status post stenting in the early , diabetes, COPD, and hypertension who is presenting for evaluation of chest pain since this morning. The patient reports that she was sitting in her chair, drinking her coffee and watching the news when she had a sudden onset of discomfort in her chest. She was given aspirin by EMS, did trial some nitro in the home environment with improvement in her pain. States that her pain was resolved in the ambulance but started to recur when she arrived at the facility. She reports that her pain does not radiate, and is not associated with any diaphoresis, nausea or vomiting. She did note that she had some left leg pain when the chest pain started, which has since resolved. Exam: Gen: Awake and alert, in no apparent distress HEENT: Non-icteric sclera Neck: Supple Lungs: No apparent respiratory distress, normal respiratory effort. Lung sounds clear and equal bilaterally CV: Appears well perfused, heart with regular rate and rhythm, strong distal pulses, no murmurs auscultated Abdomen: Non-distended, soft, nontender MSK: Moves 4 extremities without apparent limitation in ROM. No peripheral edema, no unilateral leg swelling, though the patient does have left calf tenderness on examination of that leg. Skin: Visualized skin without rashes, cyanosis. Neuro: Normal Gait, no obvious focal deficits or facial asymmetry. Speaks in full, clear sentences. Psych: Appropriate for situation. MDM: This is a 64-year-old female patient presenting for evaluation of chest pain and leg pain, both of which have improved since onset. My differential includes but is not limited to ACS including STEMI, NSTEMI, unstable angina, certainly considered arrhythmia, pericarditis/myocarditis, aortic pathology. Considered pulmonary abnormalities including pneumonia, bronchitis, pleural effusion, pulmonary edema, reactive airway disease, pneumothorax. The patient is without tachycardia, hypoxia, or a pleuritic component to his pain to significantly increase my concern for pulmonary embolism, though she does have tenderness of her left calf. No GI symptoms or vomiting to suggest Boerhaave's, esophagitis, peptic ulcer disease, pancreatitis. Considered musculoskeletal pathologies including costochondritis, chest wall pain. We will obtain laboratory studies to include CBC, CMP, magnesium, troponin, and D-dimer. I will obtain an EKG and a chest x-ray ED Course: I reviewed the patient's EKG, which shows no evidence of acute ischemia. I independently interpreted the laboratory studies, which show no significant leukocytosis, anemia, or thrombocytopenia. The chemistry panel is without evidence of electrolyte abnormality, new kidney dysfunction, or liver injury. The patient does notably have an elevated BUN and creatinine which have been demonstrated on prior laboratory studies. Initial troponin was negative, lipase is low, and the D-dimer is below cutoff for thromboembolic concern. Delta troponin without interval change, and the patient reports that her symptoms have improved significantly. I have a low concern for acute ischemia as a result of her chest pain though she is certainly at high risk given her history. She reports that she has the ability to follow-up with her outpatient providers easily, and understands that they may recommend additional testing such as stress test, echo, etc. Chest x-ray shows no abnormalities which might explain the patient's symptoms. At this time, the patient has had a full medical evaluation and is safe for discharge to home. They are hemodynamically stable, ambulatory, and tolerating PO. They are understanding of the follow-up plan and return precautions. They left our facility without incident. Sugey Gleason MD Related Data Home Medications ?Medication ?Instructions ?Recorded ?Confirmed nitroglycerin 0.4 mg sublingual 0.4 mg sublingual PRN PRN 06/01/17 09/14/24 tablet (Nitrostat) naloxone 4 mg/actuation nasal 4 mg intranasal PRN PRN 09/10/19 09/14/24 spray (Narcan) nystatin 100,000 unit/mL oral 5 ml PO QID PRN PRN 09/10/19 09/14/24 suspension rolling walker with seat #1 ea 01/12/20 09/14/24 aspirin 81 mg tablet,delayed 81 mg PO DAILY 06/24/20 09/14/24 release cyclobenzaprine 10 mg tablet 10 mg PO Q8H PRN PRN 06/24/20 09/14/24 dexlansoprazole 60 mg 60 mg PO DAILY 06/24/20 09/14/24 capsule,biphase delayed release (Dexilant) duloxetine 60 mg capsule,delayed 60 mg PO DAILY 06/24/20 09/14/24 release fluticasone propionate 50 1 spray intranasal DAILY 06/24/20 09/14/24 mcg/actuation nasal spray,suspension hydrocodone 5 mg-acetaminophen 325 1 tab PO Q8H PRN PRN 06/24/20 09/14/24 mg tablet docusate sodium 250 mg capsule 250 mg PO DAILY PRN 07/16/20 09/14/24 insulin aspart U-100 100 unit/mL 2 - 20 units subcut 0800,1200,1700 11/15/20 09/14/24 (3 mL) subcutaneous pen (Novolog FlexPen U-100 Insulin aspart) bupropion HCl 150 mg tablet,12 hr 1 tab PO BID 02/07/22 09/14/24 sustained-release insulin glargine 100 unit/mL (3 30 unit subcut QPM 02/10/22 09/14/24 mL) subcutaneous pen (Basaglar KwikPen U-100 Insulin) cholecalciferol (vitamin D3) 25 1,000 unit PO DAILY 02/20/23 09/14/24 mcg (1,000 unit) capsule (Vitamin D3) lidocaine 5 % topical patch 1 patch topical DAILY PRN #15 ea 02/20/23 09/14/24 (Lidoderm) lorazepam 0.5 mg tablet 0.5 mg PO BID PRN 06/25/23 09/14/24 atorvastatin 80 mg tablet 40 mg PO BID 07/24/23 09/14/24 clopidogrel 75 mg tablet 75 mg PO DAILY 09/07/23 09/14/24 magnesium oxide 400 mg (241.3 mg 400 mg PO BID 09/07/23 09/14/24 magnesium) tablet lisinopril 2.5 mg tablet 2.5 mg PO DAILY 09/17/23 09/14/24 dexlansoprazole 30 mg 30 mg PO DAILY 04/20/24 09/14/24 capsule,biphase delayed release (Dexilant) isosorbide dinitrate 30 mg tablet 30 mg PO DAILY 04/20/24 09/14/24 omeprazole 40 mg capsule,delayed 40 mg PO DAILY 04/20/24 09/14/24 release Previous Rx's ?Medication ?Instructions ?Recorded rolling walker with seat #1 ea 01/12/20 lidocaine 5 % topical patch 1 patch topical DAILY PRN #15 ea 02/20/23 (Lidoderm) Allergies Allergy/AdvReac Type Severity Reaction Status Date / Time quetiapine (From Seroquel) Allergy Intermediate Nausea Unverified 09/14/24 09:41 amoxicillin (From Augmentin) Allergy Contraindic Unverified 09/14/24 09:41 ated clavulanic acid (From Allergy Contraindic Unverified 09/14/24 09:41 Augmentin) ated Penicillins Allergy Contraindic Unverified 09/14/24 09:41 ated Sulfa (Sulfonamide Allergy Contraindic Unverified 09/14/24 09:41 Antibiotics) ated exenatide (From [place]) AdvReac Intermediate diarrhea Unverified 09/14/24 09:41 metformin AdvReac Intermediate diarrhea Unverified 09/14/24 09:41 amitriptyline AdvReac made my Unverified 09/14/24 09:41 face go numb amoxicillin trihydrate (From AdvReac acute Unverified 09/14/24 09:41 Augmentin) kidney failure NSAIDS (Non-Steroidal AdvReac stage III Unverified 09/14/24 09:41 Anti-Inflamma kidney disease potassium clavulanate (From AdvReac acute Unverified 09/14/24 09:41 Augmentin) kidney failure General Stated Complaint: Chest Pain SADE: 3 Course Vital Signs Vital signs: Vital Signs Temperature 36.7 C 09/14/24 09:30 Pulse 88 09/14/24 09:30 Respiratory Rate 13 09/14/24 09:30 Blood Pressure 158/79 H 09/14/24 09:30 Pulse Oximetry 99 09/14/24 09:30 Temperature 36.7 C 09/14/24 09:30 Temperature Source Temporal Artery Scan 09/14/24 09:30 Pulse 80 09/14/24 10:15 Pulse 78 09/14/24 10:46 Respiratory Rate 12 09/14/24 10:46 Blood Pressure 146/83 H 09/14/24 10:15 Blood Pressure Mean 106 09/14/24 10:15 Blood Pressure Position Supine 09/14/24 09:30 Pulse Oximetry 97 09/14/24 10:46 Oxygen Delivery Method Room Air 09/14/24 09:30 Oxygen Flow Rate 0 09/14/24 09:30 Pain Level 7 09/14/24 10:25 Lab/Test Results Lab/Test Results: Laboratory Tests Range/Units 09/14/24 09:50 WBC (4.4-10.8) 10^3/uL 6.96 RBC (3.93-5.22) 10^6/uL 3.85 L Hgb (11.2-15.7) g/dL 11.7 Hct (36.0-46.0) % 35.8 L MCV (80-95) fL 93 MCH (27.0-33.0) pg 30.4 MCHC (32.0-36.0) % 32.7 RDW (11.7-14.6) % 12.8 Plt Count (130-400) 10^3/uL 244 MPV (8.0-11.0) fL 9.6 Immature Gran % % 0.4 Neutrophils % % 55.7 Lymphocytes % % 32.5 Monocytes % % 7.3 Eosinophils % % 3.4 Basophils % % 0.7 Nucleated RBC % (0.0-0.3) % 0.0 Absolute Neutrophils (1.2-6.7) 10^3/uL 3.87 Absolute Lymphocytes (1.2-3.4) 10^3/uL 2.26 Absolute Monocytes (0.1-0.8) 10^3/uL 0.51 Absolute Eosinophils (0.0-0.7) 10^3/uL 0.24 Absolute Basophils (0.0-0.2) 10^3/uL 0.05 D-Dimer (<500) ng/mlFEU 348 Sodium (136-145) mmol/L 141 Potassium (3.5-5.1) mmol/L 5.1 Chloride (98-107) mmol/L 107 Carbon Dioxide (21.0-32.0) mmol/L 25.2 Anion Gap (3-11) mmol/L 8.8 BUN (7-18) mg/dL 63 H Creatinine (0.55-1.02) mg/dL 1.7 H Est GFR (CKD-EPI 2020) (mL/min/1.73m2) 33.28 Glucose (74-106) mg/dL 104 Calcium (8.5-10.1) mg/dL 9.1 Magnesium (1.8-2.4) mg/dL 1.7 L Total Bilirubin (0.2-1.0) mg/dL 0.19 L AST (15-37) U/L 18 ALT (14-59) U/L 17 Alkaline Phosphatase (46-116) U/L 116 Troponin I (<or=51) ng/L 7 Total Protein (6.4-8.2) g/dL 6.8 Albumin (3.4-5.0) g/dL 3.1 L Lipase (<78) U/L 18 Medical Decision Making Quality:SDOH Health Related Social Needs: No Data to Display PFSH All Active Problems (Updated 09/14/24 @ 11:23 by Sugey Gleason MD) Hyperglycemia (Acute) Acute adrenal insufficiency (Acute) URI (upper respiratory infection) (Acute) Headache (Acute) Urinary tract infection (Acute) Atypical chest pain (Acute) Hypomagnesemia (Acute) COVID-19 (Acute) Coronary artery disease (Chronic) Chest pain (Acute) CAD (coronary atherosclerotic disease) (Acute) 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 (Acute) Type 1 diabetes mellitus with diabetic polyneuropathy (Acute) Primary osteoarthritis of both first carpometacarpal joints (Acute 12/22/17) Hypertension (Chronic) Insomnia (Acute) GERD (gastroesophageal reflux disease) (Chronic) Chronic kidney disease (Chronic) COPD (chronic obstructive pulmonary disease) (Chronic) Mixed anxiety depressive disorder (Acute) Medical History Fibromyalgia Panic disorder Mental disorder Pernicious anemia Proliferative retinopathy due to DM On long term care social worker drug therapy Epigastric pain Diarrhea Wheezing Dupuytren's disease of palm Low back pain CKD stage 3 due to type 2 diabetes mellitus Acute exacerbation of chronic obstructive airways disease Allergic rhinitis 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 Insomnia Surgical History H/O lumpectomy Hx of tubal ligation section x2. No complications. Coronary Stent Cholecystectomy Appendectomy Family History Brother Diabetes Hypertension Heart disease Stroke Obesity Chronic headaches Arthritis Brother Arthritis Chronic headaches Diabetes Heart disease Hypertension Obesity Stroke Father Heart disease Stroke Hypertension Chronic headaches Sister Diabetes Obesity Osteoporosis Daughter Migraine Obesity Brother Arthritis Diabetes Chronic headaches Hypertension Obesity Stroke Mother Asthma Arthritis Diabetes Obesity Stroke Glaucoma Social History Smoking/Tobacco Use Status: Former Tobacco Use Quit Date: 04/13/19 Pack-years: 45 Tobacco: How many years used: 45 Quit status: considering quitting Smoking risk assessment performed?: Yes Alcohol Intake: never Drug use: Never Substance use type: does not use Details: Quit smoking 6 months ago. Household members: friend(s) Housing: apartment Number of Children: 3 number of grandchildren: 14 current occupation: none What is your relationship status?: Panel score (0-1 are the most socially isolated patients): 0 What type of physical activity do you participate in: none Do you feel safe at home: Yes Do you feel safe in your relationship?: Yes
[2024-09-14 11:11] LABS: Troponin I 6 ng/L (<or=51)
== END 2024-09-14 12:10 | disposition home or self-care (01) ==
LOC: ER 11:44
PROVIDERS: Emergency Provider Emergency Medicine; PCP Nurse Practitioner Family
DX: R07.9 Chest pain, unspecified (principal); E11.22 Type 2 diabetes mellitus with diabetic chronic kidney disease; I12.9 Hypertensive chronic kidney disease with stage 1 through stage 4 chronic kidney disease, or unspecified chronic kidney disease; N18.30 Chronic kidney disease, stage 3 unspecified; E11.3593 Type 2 diabetes mellitus with proliferative diabetic 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 edema, bilateral; I25.10 Atherosclerotic heart disease of native coronary artery without angina pectoris; J44.9 Chronic obstructive pulmonary disease, unspecified; Z95.5 Presence of coronary angioplasty implant and graft; Z79.4 Long term (current) use of insulin; Z79.82 Long term (current) use of aspirin; Z79.01 Long term (current) use of anticoagulants; Z87.891 Personal history of nicotine dependence
CPT/HCPCS: 36415; 80053; 82962; 83690; 93005; 99285; 71046; 83735; 84484; 85025; 85379; 93010; 99284

== ENCOUNTER 2025-03-09 02:12 | Outpatient (CLI) | payer MEDICARE, MEDICAID, SELFPAY ==
--- NOTE | 2025-03-09 | DI.RAD_ITS ---
Exam(s) XR HIP RT COMPLETE AP PELVIS EXAM: XR HIP RT COMPLETE AP PELVIS CLINICAL HISTORY: RT HIP PAIN,[id number]. TECHNIQUE: 2D digital imaging was performed of the right hip. Two images were obtained. AP pelvis and lateral right hip views were obtained. COMPARISON: CR XR PELVIS AP from 02/20/2023 FINDINGS: BONES: No acute fracture is present. No bony destructive lesion is seen. JOINTS: No dislocation present. The right hip is well maintained with mild subchondral sclerosis in the acetabulum. There is mild narrowing of the left hip joint. The sacroiliac joints and symphysis pubis are unremarkable. SOFT TISSUE: Atherosclerotic calcification is seen. IMPRESSION: No acute abnormality. DATA REPOSITORY: RADIATION DOSE DELIVERED:
== END 2025-03-09 02:32 ==
LOC: DI 02:12
PROVIDERS: PCP Nurse Practitioner Family; Visit Provider Specialist/Technologist Athletic Trainer
DX: M25.551 Pain in right hip (principal)
CPT/HCPCS: 73502

== ENCOUNTER 2025-03-11 00:58 | Outpatient (CLI) | payer MEDICARE, MEDICAID, SELFPAY ==
[2025-03-11 13:13] LABS: Abs Immature Grans 0.05 10^3/uL (0.0-0.06); HCT 36.8 % (36.0-46.0); HGB 12.6 g/dL (11.2-15.7); Immature Grans % 0.6 %; MCH 31.4 pg (27.0-33.0); MCHC 34.2 % (32.0-36.0); MCV 92 fL (80-95); MPV 9.5 fL (8.0-11.0); Platelet Count 318 10^3/uL (130-400); RBC 4.01 10^6/uL (3.93-5.22); RDW 14.3 % (11.7-14.6); RDW-SD 48.1 fL; WBC 8.78 10^3/uL (4.4-10.8)
[2025-03-11 13:44] LABS: Hemoglobin A1C 6.4 % (<5.7)
[2025-03-11 14:01] LABS: ALT 30 U/L (14-59); AST 18 U/L (15-37); Albumin 3.4 g/dL (3.4-5.0); Alkaline Phosphatase 86 U/L (46-116); Anion Gap 13.1 mmol/L (3-11); BUN 25 mg/dL (7-18); Bilirubin, Total 0.5 mg/dL (0.2-1.0); CO2 24.9 mmol/L (21.0-32.0); Calculated LDL 41 mg/dL (<100); Chloride 98 mmol/L (98-107); Cholesterol 138 mg/dL (<200); Estimated GFR 33.28 (mL/min/1.73m2); Glucose 165 mg/dL (74-106); HDL Cholesterol 80 mg/dL (>or=50); Potassium 4.1 mmol/L (3.5-5.1); Sodium 136 mmol/L (136-145); TSH 5.04 uIU/mL (0.36-3.74); Total Protein 7.1 g/dL (6.4-8.2); Triglyceride 86 mg/dL (<150)
[2025-03-11 14:19] LABS: Calcium 11.6 mg/dL (8.5-10.1)
[2025-03-11 16:50] LABS: Magnesium 1.8 mg/dL (1.8-2.4)
== END 2025-03-11 00:59 | disposition home or self-care (01) ==
LOC: LBO 00:58
PROVIDERS: PCP Nurse Practitioner Family; Visit Provider Specialist/Technologist Athletic Trainer
DX: Z79.899 Other long term (current) drug therapy (principal)
CPT/HCPCS: 36415; 80053; 80061; 83036; 83735; 84443; 85025

== ENCOUNTER 2025-04-07 09:06 | Emergency (ER) | payer MEDICARE, MEDICAID, SELFPAY ==
[2025-04-07 09:30] VITALS: BP 117/59; PULSE 96; RESP 16; TEMP 36.1; O2SAT 97
[2025-04-07 09:44] LABS: Glucose Negative (Negative)
[2025-04-07 09:56] VITALS: TEMP 36.1
[2025-04-07 10:05] LABS: C & S Indicated? Yes; RBC >50 HPF (0-2); WBC >50 HPF (0-5)
--- NOTE | 2025-04-07 10:17 | W.ED.GENAD ---
Discharge Plan Disposition Patient Disposition: Home Condition: Stable Discharge Details Clinical Impression: UTI (urinary tract infection) Primary Care Provider: Jeny Almonte ED Provider: Branden Sequeira Home Meds and New Rx's Prescriptions: New nitrofurantoin monohyd/m-cryst [Macrobid] 100 mg capsule 100 mg PO Q12H 5 Days Qty: 10 0RF Rx Instructions: must administer with a meal/food phenazopyridine [Pyridium] 200 mg tablet 200 mg PO TID PRNQty: 6 0RF Continued nystatin 100,000 unit/mL Suspension 5 ml PO QID PRN PRN naloxone [Narcan] 4 mg/actuation [place],Non-Aerosol 4 mg INTRANASAL PRN PRN (DME) rolling walker with seat Qty: 1 0RF Rx Instructions: As directed with ambulation insulin aspart U-100 [Novolog FlexPen U-100 Insulin] 300 UNITS/3 ML insulin pen 2 - 20 units Sub-Q 0800,1200,1700 Rx Instructions: Dispense one pen see sliding scale bupropion HCl 150 mg tablet sustained-release 12 hr 1 tab PO BID Patient Comments: TAKE ONE TABLET BY MOUTH TWICE A DAY lorazepam 0.5 mg tablet 0.5 mg PO BID PRN Patient Comments: TAKE ONE TABLET BY MOUTH EVERY 6 HOURS NEEDED FOR ANXIETY dexlansoprazole [Dexilant] 30 mg capsule,biphase delayed releas 30 mg PO DAILY isosorbide dinitrate 30 mg tablet 30 mg PO DAILY Patient Comments: TAKE ONE TABLET BY MOUTH EVERY DAY omeprazole 40 mg capsule,delayed release(DR/EC) 40 mg PO DAILY Patient Comments: TAKE ONE CAPSULE BY MOUTH EVERY DAY duloxetine 30 mg capsule,delayed release(DR/EC) 30 mg PO DAILY Patient Comments: TAKE ONE CAPSULE BY MOUTH EVERY DAY Mounjaro 10 mg/0.5 mL pen injector 10 mg SUBCUT .weekly Patient Comments: INJECT 10MG SUBCUTANEOUSLY EVERY WEEK, ROTATE INJECTION SITES nitroglycerin [Nitrostat] 0.4 MG tablet, sublingual 0.4 mg Sublingual PRN PRN cyclobenzaprine 10 mg tablet 10 mg PO Q8H PRN PRN hydrocodone-acetaminophen 5-325 mg tablet 1 tab PO Q8H PRN PRN Patient Comments: TAKE ONE TABLET BY MOUTH EVERY 6 TO 8 HOURS NEEDED aspirin 81 mg tablet,delayed release (DR/EC) 81 mg PO DAILY Patient Comments: TAKE ONE TABLET BY MOUTH EVERY DAY fluticasone propionate 50 mcg/actuation spray,suspension 1 spray INTRANASAL DAILY Patient Comments: INSTILL 2 SPRAYS NASALLY DAILY duloxetine 60 mg capsule,delayed release(DR/EC) 60 mg PO DAILY Patient Comments: TAKE ONE CAPSULE BY MOUTH EVERY DAY dexlansoprazole [Dexilant] 60 mg capsule,biphase delayed releas 60 mg PO DAILY docusate sodium 250 mg Capsule 250 mg PO DAILY PRN insulin glargine [Basaglar KwikPen U-100 Insulin] 100 unit/mL (3 mL) insulin pen 30 unit SUBCUT QPM Patient Comments: INJECT 60 UNITS SUBCUTANEOUSLY ONCE DAILY (30 UNITS EVERY MORNING AND 30 UNITS QPM) cholecalciferol (vitamin D3) [Vitamin D3] 25 mcg (1,000 unit) capsule 1,000 unit PO DAILY Patient Comments: no longer taking 05/19/ MG lidocaine [Lidoderm] 5 % adhesive patch,medicated 1 patch topical DAILY PRNQty: 15 0RF Rx Instructions: leave on most painful area for up to 12 hrs atorvastatin 80 mg tablet 40 mg PO BID Patient Comments: TAKE ONE TABLET AB BY MOUTH DAILY (cuts tab in half, takes morning and night to reduce side effects) clopidogrel 75 mg tablet 75 mg PO DAILY Patient Comments: TAKE ONE TABLET AB BY MOUTH DAILY magnesium oxide 400 mg (241.3 mg magnesium) tablet 400 mg PO BID lisinopril 2.5 mg tablet 2.5 mg PO DAILY Patient Comments: TAKE ONE TABLET BY MOUTH EVERY DAY Discharge Instructions Additional Instructions: Your urine was consistent with a UTI. If you are not improving within 5 days follow-up with your primary care provider. If you feel more ill or have new symptoms such as high fevers return to the emergency department for evaluation. HPI General Date/Time Provider Initiated Documentation: 04/07/25 09:07. Limitations to Documentation: no limitations. Information obtained by: patient. History of Present Illness 64 year old F presents to the emergency department with the chief complaint of painful/burning urination, described as moderate, Quality is described as burning, Patient started experiencing this day(s) (3) and it has been constant. No relieving factors improve symptom(s), No exacerbating factors reported . Patient notes no other symptoms.. Related Data Home Medications ?Medication ?Instructions ?Recorded ?Confirmed nitroglycerin 0.4 mg sublingual 0.4 mg sublingual PRN PRN 06/01/17 04/07/25 tablet (Nitrostat) naloxone 4 mg/actuation nasal 4 mg intranasal PRN PRN 09/10/19 04/07/25 spray (Narcan) nystatin 100,000 unit/mL oral 5 ml PO QID PRN PRN 09/10/19 04/07/25 suspension rolling walker with seat #1 ea 01/12/20 04/07/25 aspirin 81 mg tablet,delayed 81 mg PO DAILY 06/24/20 04/07/25 release cyclobenzaprine 10 mg tablet 10 mg PO Q8H PRN PRN 06/24/20 04/07/25 dexlansoprazole 60 mg 60 mg PO DAILY 06/24/20 04/07/25 capsule,biphase delayed release (Dexilant) duloxetine 60 mg capsule,delayed 60 mg PO DAILY 06/24/20 04/07/25 release fluticasone propionate 50 1 spray intranasal DAILY 06/24/20 04/07/25 mcg/actuation nasal spray,suspension hydrocodone 5 mg-acetaminophen 325 1 tab PO Q8H PRN PRN 06/24/20 04/07/25 mg tablet docusate sodium 250 mg capsule 250 mg PO DAILY PRN 07/16/20 04/07/25 insulin aspart U-100 100 unit/mL 2 - 20 units subcut 0800,1200,1700 11/15/20 04/07/25 (3 mL) subcutaneous pen (Novolog FlexPen U-100 Insulin aspart) bupropion HCl 150 mg tablet,12 hr 1 tab PO BID 02/07/22 04/07/25 sustained-release insulin glargine 100 unit/mL (3 30 unit subcut QPM 02/10/22 04/07/25 mL) subcutaneous pen (Basaglar KwikPen U-100 Insulin) cholecalciferol (vitamin D3) 25 1,000 unit PO DAILY 02/20/23 04/07/25 mcg (1,000 unit) capsule (Vitamin D3) lidocaine 5 % topical patch 1 patch topical DAILY PRN #15 ea 02/20/23 04/07/25 (Lidoderm) lorazepam 0.5 mg tablet 0.5 mg PO BID PRN 06/25/23 04/07/25 atorvastatin 80 mg tablet 40 mg PO BID 07/24/23 04/07/25 clopidogrel 75 mg tablet 75 mg PO DAILY 09/07/23 04/07/25 magnesium oxide 400 mg (241.3 mg 400 mg PO BID 09/07/23 04/07/25 magnesium) tablet lisinopril 2.5 mg tablet 2.5 mg PO DAILY 09/17/23 04/07/25 dexlansoprazole 30 mg 30 mg PO DAILY 04/20/24 04/07/25 capsule,biphase delayed release (Dexilant) isosorbide dinitrate 30 mg tablet 30 mg PO DAILY 04/20/24 04/07/25 omeprazole 40 mg capsule,delayed 40 mg PO DAILY 04/20/24 04/07/25 release duloxetine 30 mg capsule,delayed 30 mg PO DAILY 04/07/25 04/07/25 release nitrofurantoin 100 mg PO Q12H 5 days #10 caps 04/07/25 monohydrate/macrocrystals 100 mg capsule (Macrobid) phenazopyridine 200 mg tablet 200 mg PO TID PRN 6 doses #6 tabs 04/07/25 (Pyridium) tirzepatide 10 mg/0.5 mL 10 mg subcut .weekly 04/07/25 04/07/25 subcutaneous pen injector (Feli) Previous Rx's ?Medication ?Instructions ?Recorded rolling walker with seat #1 ea 01/11/ lidocaine 5 % topical patch 1 patch topical DAILY PRN #15 ea 02/20/23 (Lidoderm) nitrofurantoin 100 mg PO Q12H 5 days #10 caps 04/07/25 monohydrate/macrocrystals 100 mg capsule (Macrobid) phenazopyridine 200 mg tablet 200 mg PO TID PRN 6 doses #6 tabs 04/07/25 (Pyridium) Allergies Allergy/AdvReac Type Severity Reaction Status Date / Time quetiapine (From Seroquel) Allergy Intermediate Nausea Unverified 04/07/25 09:42 amoxicillin (From Augmentin) Allergy Contraindic Unverified 04/07/25 09:42 ated clavulanic acid (From Allergy Contraindic Unverified 04/07/25 09:42 Augmentin) ated Penicillins Allergy Contraindic Unverified 04/07/25 09:42 ated Sulfa (Sulfonamide Allergy Contraindic Unverified 04/07/25 09:42 Antibiotics) ated exenatide (From [place]) AdvReac Intermediate diarrhea Unverified 04/07/25 09:42 metformin AdvReac Intermediate diarrhea Unverified 04/07/25 09:42 amitriptyline AdvReac made my Unverified 04/07/25 09:42 face go numb amoxicillin trihydrate (From AdvReac acute Unverified 04/07/25 09:42 Augmentin) kidney failure NSAIDS (Non-Steroidal AdvReac stage III Unverified 04/07/25 09:42 Anti-Inflamma kidney disease potassium clavulanate (From AdvReac acute Unverified 04/07/25 09:42 Augmentin) kidney failure General Stated Complaint: Urinary SADE: 3 Review of Systems All systems reviewed & are unremarkable except as noted in HPI and below Constitutional Constitutional: Denies chills, Denies fever(s) and Denies weakness Cardiovascular Cardiovascular: Denies chest pain and Denies dyspnea Respiratory Respiratory: Denies cough and Denies dyspnea Gastrointestinal Gastrointestinal: Denies abdominal pain, Denies nausea and Denies vomiting Genitourinary Genitourinary: Reports dysuria Neurologic Neurologic: Denies weakness Exam Const General: no acute distress Orientation: alert HENMT Head: normal to inspection Ears: external ears normal General nose exam: external nose normal Mouth: moist mucous membranes Eyes General: appearance normal, both eyes and all related structures Neck Neck: normal visual inspection Resp Effort & Inspection: normal respiratory effort and able to speak in complete sentences Cardio Rate: regular rate GI Palpation: soft and nontender Back/Spine/Pelvis Back: no CVA tenderness Skin General skin exam: no rashes or lesions noted Neuro General: patient alert and patient oriented x3 Extrem General: normal to inspection Psych Mental Status: mental status grossly normal Course Vital Signs Vital signs: Vital Signs Temperature 36.1 C L 04/07/25 09:30 Pulse 96 H 04/07/25 09:30 Respiratory Rate 16 04/07/25 09:30 Blood Pressure 117/59 L 04/07/25 09:30 Pulse Oximetry 97 04/07/25 09:30 Temperature 36.1 C L 04/07/25 09:56 Temperature Source Tympanic 04/07/25 09:56 Pulse 96 H 04/07/25 09:30 Respiratory Rate 16 04/07/25 09:30 Blood Pressure 117/59 L 04/07/25 09:30 Blood Pressure Position Supine 04/07/25 09:30 Pulse Oximetry 97 04/07/25 09:30 Oxygen Delivery Method Room Air 04/07/25 09:30 Oxygen Flow Rate 0 04/07/25 09:30 Pain Level 10 04/07/25 09:56 Lab/Test Results Lab/Test Results: 04/07/25 09:25 Urine - Reflex from Ua Urine Culture - Pending Laboratory Tests Range/Units 04/07/25 09:25 Urine Color (Yellow) Yellow Urine Clarity (Clear) Cloudy Urine pH (5-8) 5.5 Ur Specific [place] (1.005-1.025) >= 1.030 H Urine Protein (Neg-Trace) mg/dL Negative Urine Ketones (Negative) mg/dL 15 H Urine Blood (Negative) Large H Urine Nitrite (Negative) Negative Urine Bilirubin (Negative) Moderate H Urine Urobilinogen (Up to 0.2) mg/dL 0.2 Ur Leukocyte Esterase (Negative) Large H Urine RBC (0-2) HPF >50 H Urine WBC (0-5) HPF >50 H Ur Epithelial Cells (Negative) HPF Few Urine Crystals (Negative) HPF Negative Urine Bacteria (Negative) HPF Moderate Urine Casts (Negative) LPF Negative Urine Mucus (Negative) Negative Ur Culture Indicated? Yes Urine Glucose (Negative) mg/dL Negative Medical Decision Making 64-year-old female comes in with a complaint stating that she has a UTI. She says she has had burning with urination similar to prior UTIs. Denies any fevers, severe abdominal pain, severe back pain. She is well-appearing on exam, her abdomen is soft with very mild suprapubic discomfort on exam. No CVA tenderness. Her urine seems consistent with a UTI. She has no findings on exam or history to suggest entities such as pyelonephritis or sepsis so I do not feel the lab work is indicated. I will start her on Macrobid and Pyridium. 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 (Acute) Type 1 diabetes mellitus with diabetic polyneuropathy (Acute) Primary osteoarthritis of both first carpometacarpal joints (Acute 12/22/17) Hypertension (Chronic) Insomnia (Acute) GERD (gastroesophageal reflux disease) (Chronic) Chronic kidney disease (Chronic) COPD (chronic obstructive pulmonary disease) (Chronic) Mixed anxiety depressive disorder (Acute) Medical History Fibromyalgia Panic disorder Mental disorder Pernicious anemia Proliferative retinopathy due to DM On 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 Epigastric pain Diarrhea Wheezing Dupuytren's disease of palm Low back pain CKD stage 3 due to type 2 diabetes mellitus Acute exacerbation of chronic obstructive airways disease Allergic rhinitis 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 Insomnia Surgical History H/O lumpectomy Hx of tubal ligation section x2. No complications. Coronary Stent Cholecystectomy Appendectomy Family History Brother Diabetes Hypertension Heart disease Stroke Obesity Chronic headaches Arthritis Brother Arthritis Chronic headaches Diabetes Heart disease Hypertension Obesity Stroke Father Heart disease Stroke Hypertension Chronic headaches Sister Diabetes Obesity Osteoporosis Daughter Migraine Obesity Brother Arthritis Diabetes Chronic headaches Hypertension Obesity Stroke Mother Asthma Arthritis Diabetes Obesity Stroke Glaucoma Social History Smoking/Tobacco Use Status: Former Tobacco Use Quit Date: 04/13/19 Pack-years: 45 Tobacco: How many years used: 45 Quit status: considering quitting Smoking risk assessment performed?: Yes Alcohol Intake: never Drug use: Never Substance use type: does not use Details: Quit smoking 6 months ago. Household members: friend(s) Housing: apartment Number of Children: 3 number of grandchildren: 14 current occupation: none What is your relationship status?: Panel score (0-1 are the most socially isolated patients): 0 What type of physical activity do you participate in: none Do you feel safe at home: Yes Do you feel safe in your relationship?: Yes
[2025-04-07] MEDS: Phenazopyridine 200 MG TAB PO (10:29)
[2025-04-07] MEDS: MacroBID 100 MG CAP PO (10:29)
[2025-04-07 10:34] VITALS: BP 118/65; PULSE 93; RESP 16; TEMP 36.3; O2SAT 98
--- NOTE | 2025-04-09 08:21 | NUR.NOTE ---
Access chart to determine antibiotic on discharge for urine culture. Nursing Note:
== END 2025-04-07 10:41 | disposition home or self-care (01) ==
PROVIDERS: Emergency Provider Emergency Medicine; PCP Nurse Practitioner Family
DX: N39.0 Urinary tract infection, site not specified (principal)
CPT/HCPCS: 99283 ×2; 81003; 81015; 87086

== ENCOUNTER 2025-04-12 16:36 | Outpatient (REF) | payer MEDICARE, MEDICAID, SELFPAY ==
[2025-04-12 21:47] LABS: ALT 22 U/L (14-59); AST 17 U/L (15-37); Albumin 3.5 g/dL (3.4-5.0); Alkaline Phosphatase 96 U/L (46-116); Anion Gap 13.7 mmol/L (3-11); BUN 17 mg/dL (7-18); Bilirubin, Total 0.6 mg/dL (0.2-1.0); CO2 21.3 mmol/L (21.0-32.0); Calcium 9.0 mg/dL (8.5-10.1); Chloride 97 mmol/L (98-107); Estimated GFR 42.01 (mL/min/1.73m2); Glucose 172 mg/dL (74-106); Potassium 4.5 mmol/L (3.5-5.1); Sodium 132 mmol/L (136-145); Total Protein 6.6 g/dL (6.4-8.2)
== END 2025-04-12 16:37 | disposition home or self-care (01) ==
LOC: LBN 16:36
PROVIDERS: PCP Nurse Practitioner Family; Visit Provider Physician Assistant
DX: J02.9 Acute pharyngitis, unspecified (principal); R00.0 Tachycardia, unspecified; N18.9 Chronic kidney disease, unspecified
CPT/HCPCS: 80053; 84439; 87070

== ENCOUNTER 2025-04-13 08:56 | Emergency (ER) | payer MEDICARE, MEDICAID, SELFPAY ==
[2025-04-13] VITALS (39 sets, daily range): BP systolic 112–148; BP diastolic 44–97; PULSE 51–111; RESP 12–28; TEMP 37.3; O2SAT 88–97
--- NOTE | 2025-04-13 08:45 | RT.EKG_ITS ---
APPROVED REPORT Exam: Resting ECG Reason for Exam: chest pain Patient Location: E HR:104 bpm ECG Measurements Heart Rate 104 AXIS NV 199 P 53 QRSd 82 QRS -1 QT 349 T 60 QTc 460 Conclusion Sinus tachycardia...rate> 99 Low voltage, extremity and precordial leads...extremity<0.5mV, precordial<1.0mV Consider anterior infarct...Q >30mS in V2-V5 No STEMI
[2025-04-13 09:29] LABS: Abs Immature Grans 0.07 10^3/uL (0.0-0.06); HCT 32.6 % (36.0-46.0); HGB 11.3 g/dL (11.2-15.7); Immature Grans % 0.7 %; MCH 31.6 pg (27.0-33.0); MCHC 34.7 % (32.0-36.0); MCV 91 fL (80-95); MPV 9.3 fL (8.0-11.0); Platelet Count 221 10^3/uL (130-400); RBC 3.58 10^6/uL (3.93-5.22); RDW 14.0 % (11.7-14.6); RDW-SD 47.3 fL; WBC 10.56 10^3/uL (4.4-10.8)
[2025-04-13 10:02] LABS: ALT 20 U/L (14-59); AST 15 U/L (15-37); Albumin 3.0 g/dL (3.4-5.0); Alkaline Phosphatase 83 U/L (46-116); Anion Gap 10.2 mmol/L (3-11); BUN 16 mg/dL (7-18); Bilirubin, Total 0.6 mg/dL (0.2-1.0); CO2 23.8 mmol/L (21.0-32.0); Calcium 9.0 mg/dL (8.5-10.1); Chloride 97 mmol/L (98-107); Estimated GFR 45.92 (mL/min/1.73m2); Glucose 138 mg/dL (74-106); Lipase 11 U/L (<78); Magnesium 1.9 mg/dL (1.8-2.4); Potassium 3.9 mmol/L (3.5-5.1); Sodium 131 mmol/L (136-145); Total Protein 6.6 g/dL (6.4-8.2); Troponin I 7 ng/L (<or=51)
[2025-04-13 10:07] LABS: D-Dimer 676 ng/mlFEU (<500)
--- NOTE | 2025-04-13 10:54 | NUR.NOTE ---
Nursing Note: Pt in bathroom with call light in reach, was instructed to use the call light when she was done and we would assist her off the toilet. Patient stood on her own, lost her balance, and fell backwards landing on her buttocks. No apparent injury. Patient was assisted off the floor w/gait belt and 3 staff members and brought back to her room to be assessed by Provider.
[2025-04-13 11:07] LABS: Troponin I 7 ng/L (<or=51)
--- NOTE | 2025-04-13 12:10 | DI.RAD_ITS ---
Exam(s) XR PORTABLE CHEST AP EXAM: XR PORTABLE CHEST AP CLINICAL HISTORY: chest pain TECHNIQUE: 2D digital imaging was performed. COMPARISON: CR XR CHEST 2V PA LATERAL from 05/05/2024 CR XR CHEST 2V PA LATERAL from 09/14/2024 FINDINGS: Exam is limited by for pulmonary inflation. LUNGS: Underlying chronic interstitial changes. No focal infiltrate or effusion. No pleural abnormality seen. HEART: Normal size. AORTA: Normal diameter. BONES: Unremarkable for age. Soft tissues: Unremarkable. IMPRESSION: Limited exam. No acute findings. DATA REPOSITORY: RADIATION DOSE DELIVERED:
--- NOTE | 2025-04-13 12:32 | W.ED.GENAD ---
Discharge Plan Disposition Patient Disposition: Home Condition: Stable Discharge Details Clinical Impression: Chest pain of uncertain etiology Primary Care Provider: Jeny Almonte ED Provider: Burton You Home Meds and New Rx's Prescriptions: Continued nystatin 100,000 unit/mL Suspension 5 ml PO QID PRN PRN naloxone [Narcan] 4 mg/actuation [place],Non-Aerosol 4 mg INTRANASAL PRN PRN nystatin 100,000 unit/mL suspension 500,000 unit buccal QID Qty: 480 0RF Rx Instructions: administer 1/2 of dose in each side of the mouth, hold in mouth as long as possible, then spit benzonatate 100 mg capsule 100 mg PO TID PRN (Reason: cough) Qty: 14 0RF (DME) rolling walker with seat Qty: 1 0RF Rx Instructions: As directed with ambulation insulin aspart U-100 [Novolog FlexPen U-100 Insulin] 300 UNITS/3 ML insulin pen 2 - 20 units Sub-Q 0800,1200,1700 Rx Instructions: Dispense one pen see sliding scale bupropion HCl 150 mg tablet sustained-release 12 hr 1 tab PO BID Patient Comments: TAKE ONE TABLET BY MOUTH TWICE A DAY lorazepam 0.5 mg tablet 0.5 mg PO BID PRN Patient Comments: TAKE ONE TABLET BY MOUTH EVERY 6 HOURS NEEDED FOR ANXIETY dexlansoprazole [Dexilant] 30 mg capsule,biphase delayed releas 30 mg PO DAILY isosorbide dinitrate 30 mg tablet 30 mg PO DAILY Patient Comments: TAKE ONE TABLET BY MOUTH EVERY DAY omeprazole 40 mg capsule,delayed release(DR/EC) 40 mg PO DAILY Patient Comments: TAKE ONE CAPSULE BY MOUTH EVERY DAY duloxetine 30 mg capsule,delayed release(DR/EC) 30 mg PO DAILY Patient Comments: TAKE ONE CAPSULE BY MOUTH EVERY DAY Mounjaro 10 mg/0.5 mL pen injector 10 mg SUBCUT .weekly Patient Comments: INJECT 10MG SUBCUTANEOUSLY EVERY WEEK, ROTATE INJECTION SITES phenazopyridine [Pyridium] 200 mg tablet 200 mg PO TID PRNQty: 6 0RF nitroglycerin [Nitrostat] 0.4 MG tablet, sublingual 0.4 mg Sublingual PRN PRN cyclobenzaprine 10 mg tablet 10 mg PO Q8H PRN PRN hydrocodone-acetaminophen 5-325 mg tablet 1 tab PO Q8H PRN PRN Patient Comments: TAKE ONE TABLET BY MOUTH EVERY 6 TO 8 HOURS NEEDED aspirin 81 mg tablet,delayed release (DR/EC) 81 mg PO DAILY Patient Comments: TAKE ONE TABLET BY MOUTH EVERY DAY fluticasone propionate 50 mcg/actuation spray,suspension 1 spray INTRANASAL DAILY Patient Comments: INSTILL 2 SPRAYS NASALLY DAILY duloxetine 60 mg capsule,delayed release(DR/EC) 60 mg PO DAILY Patient Comments: TAKE ONE CAPSULE BY MOUTH EVERY DAY dexlansoprazole [Dexilant] 60 mg capsule,biphase delayed releas 60 mg PO DAILY docusate sodium 250 mg Capsule 250 mg PO DAILY PRN insulin glargine [Basaglar KwikPen U-100 Insulin] 100 unit/mL (3 mL) insulin pen 30 unit SUBCUT QPM Patient Comments: INJECT 60 UNITS SUBCUTANEOUSLY ONCE DAILY (30 UNITS EVERY MORNING AND 30 UNITS QPM) cholecalciferol (vitamin D3) [Vitamin D3] 25 mcg (1,000 unit) capsule 1,000 unit PO DAILY Patient Comments: no longer taking 05/19/23 MG lidocaine [Lidoderm] 5 % adhesive patch,medicated 1 patch topical DAILY PRNQty: 15 0RF Rx Instructions: leave on most painful area for up to 12 hrs atorvastatin 80 mg tablet 40 mg PO BID Patient Comments: TAKE ONE TABLET AB BY MOUTH DAILY (cuts tab in half, takes morning and night to reduce side effects) clopidogrel 75 mg tablet 75 mg PO DAILY Patient Comments: TAKE ONE TABLET AB BY MOUTH DAILY magnesium oxide 400 mg (241.3 mg magnesium) tablet 400 mg PO BID lisinopril 2.5 mg tablet 2.5 mg PO DAILY Patient Comments: TAKE ONE TABLET BY MOUTH EVERY DAY Discharge Instructions Instructions: Chest Pain, Adult ED Additional Instructions: You were seen in the emergency department for your chest pain of uncertain cause, it is possible it was anxiety versus musculoskeletal chest pain of the ribs, there is no evidence of any damage to the heart, no blood clot in the lungs, your EKG is normal and there is no pneumonia or other abnormality, please return to the emergency department for any acute worsening especially with shortness of breath, sweating or dizziness. Otherwise please make an appointment with your primary care provider for possible referral to cardiology for echocardiogram and stress test. Referrals: Jeny Almonte [Primary Care Provider, Medicine] Discharge Data Discharge Date/Time-TO BE ENTERED AT DEPARTURE: 04/13/25 14:07 HPI General Date/Time Provider Initiated Documentation: 04/13/25 09:04. HPI Narrative: 64 year-old female presents to ED today by POV/ambulating with a chief complaint of chest pain, sternal, awoken from sleep by the pain at 0430 this morning, took nitro x3 with resolution prior to EMS arrival- given 324mg ASA by EMS- declined IV in ambulance. Quality described as pain worse with deep breathing and palpation, no radiation to diaphoresis, dizziness, near syncope, endorses a headache on time of arrival, denies shortness of breath. Severity is described as severe at onset- very mild now. Palliating factors include nothing specific. Provoking factors include nothing specific. Events leading up to the incident/Associated Symptoms: Patient has a history of atypical chest pain and CAD, hypertension, COPD. Patient not anticoagulated. Related Data Home Medications ?Medication ?Instructions ?Recorded ?Confirmed nitroglycerin 0.4 mg sublingual 0.4 mg sublingual PRN PRN 06/01/17 04/13/25 tablet (Nitrostat) naloxone 4 mg/actuation nasal 4 mg intranasal PRN PRN 09/10/19 04/13/25 spray (Narcan) nystatin 100,000 unit/mL oral 5 ml PO QID PRN PRN 09/10/19 04/13/25 suspension rolling walker with seat #1 ea 01/12/20 04/13/25 aspirin 81 mg tablet,delayed 81 mg PO DAILY 06/24/20 04/13/25 release cyclobenzaprine 10 mg tablet 10 mg PO Q8H PRN PRN 06/24/20 04/13/25 dexlansoprazole 60 mg 60 mg PO DAILY 06/24/20 04/13/25 capsule,biphase delayed release (Dexilant) duloxetine 60 mg capsule,delayed 60 mg PO DAILY 06/24/20 04/13/25 release fluticasone propionate 50 1 spray intranasal DAILY 06/24/20 04/13/25 mcg/actuation nasal spray,suspension hydrocodone 5 mg-acetaminophen 325 1 tab PO Q8H PRN PRN 06/24/20 04/13/25 mg tablet docusate sodium 250 mg capsule 250 mg PO DAILY PRN 07/16/20 04/13/25 insulin aspart U-100 100 unit/mL 2 - 20 units subcut 0800,1200,1700 11/15/20 04/13/25 (3 mL) subcutaneous pen (Novolog FlexPen U-100 Insulin aspart) bupropion HCl 150 mg tablet,12 hr 1 tab PO BID 02/07/22 04/13/25 sustained-release insulin glargine 100 unit/mL (3 30 unit subcut QPM 02/10/22 04/13/25 mL) subcutaneous pen (Basaglar KwikPen U-100 Insulin) cholecalciferol (vitamin D3) 25 1,000 unit PO DAILY 02/20/23 04/13/25 mcg (1,000 unit) capsule (Vitamin D3) lidocaine 5 % topical patch 1 patch topical DAILY PRN #15 ea 02/20/23 04/13/25 (Lidoderm) lorazepam 0.5 mg tablet 0.5 mg PO BID PRN 06/25/23 04/13/25 atorvastatin 80 mg tablet 40 mg PO BID 07/24/23 04/13/25 clopidogrel 75 mg tablet 75 mg PO DAILY 09/07/23 04/13/25 magnesium oxide 400 mg (241.3 mg 400 mg PO BID 09/07/23 04/13/25 magnesium) tablet lisinopril 2.5 mg tablet 2.5 mg PO DAILY 09/17/23 04/13/25 dexlansoprazole 30 mg 30 mg PO DAILY 04/20/24 04/13/25 capsule,biphase delayed release (Dexilant) isosorbide dinitrate 30 mg tablet 30 mg PO DAILY 04/20/24 04/13/25 omeprazole 40 mg capsule,delayed 40 mg PO DAILY 04/20/24 04/13/25 release duloxetine 30 mg capsule,delayed 30 mg PO DAILY 04/07/25 04/13/25 release phenazopyridine 200 mg tablet 200 mg PO TID PRN 6 doses #6 tabs 04/07/25 04/13/25 (Pyridium) tirzepatide 10 mg/0.5 mL 10 mg subcut .weekly 04/07/25 04/13/25 subcutaneous pen injector (Mounjaro) benzonatate 100 mg capsule 100 mg PO TID PRN cough #14 caps 04/12/25 04/13/25 nystatin 100,000 unit/mL oral 500,000 unit (5 mL) buccal QID 04/12/25 04/13/25 suspension #480 mL Previous Rx's ?Medication ?Instructions ?Recorded rolling walker with seat #1 ea 01/12/20 lidocaine 5 % topical patch 1 patch topical DAILY PRN #15 ea 02/20/23 (Lidoderm) phenazopyridine 200 mg tablet 200 mg PO TID PRN 6 doses #6 tabs 04/07/25 (Pyridium) benzonatate 100 mg capsule 100 mg PO TID PRN cough #14 caps 04/12/25 nystatin 100,000 unit/mL oral 500,000 unit (5 mL) buccal QID 04/12/25 suspension #480 mL Allergies Allergy/AdvReac Type Severity Reaction Status Date / Time quetiapine (From Seroquel) Allergy Intermediate Nausea Unverified 04/13/25 09:47 amoxicillin (From Augmentin) Allergy Contraindic Unverified 04/13/25 09:47 ated clavulanic acid (From Allergy Contraindic Unverified 04/13/25 09:47 Augmentin) ated Penicillins Allergy Contraindic Unverified 04/13/25 09:47 ated Sulfa (Sulfonamide Allergy Contraindic Unverified 04/13/25 09:47 Antibiotics) ated exenatide (From [place]) AdvReac Intermediate diarrhea Unverified 04/13/25 09:47 metformin AdvReac Intermediate diarrhea Unverified 04/13/25 09:47 amitriptyline AdvReac made my Unverified 04/13/25 09:47 face go numb amoxicillin trihydrate (From AdvReac acute Unverified 04/13/25 09:47 Augmentin) kidney failure NSAIDS (Non-Steroidal AdvReac stage III Unverified 04/13/25 09:47 Anti-Inflamma kidney disease potassium clavulanate (From AdvReac acute Unverified 04/13/25 09:47 Augmentin) kidney failure General Stated Complaint: Chest Pain SADE: 3 Review of Systems All systems reviewed & are unremarkable except as noted in HPI and below Exam Narrative Exam Narrative: GENERAL APPEARANCE: Well-nourished, non-toxic, awake and alert, atraumatic, no acute distress. SKIN: Warm, pink, dry, intact, without rashes/lesions/ulcerations. HEAD: Normocephalic, atraumatic, normal hair distribution for gender/age. EYES: Normal conjunctiva, no exudates on lids/lashes. ENT: Nares patent, no circumoral cyanosis, no facial swelling NECK: Supple, trachea midline, painless cervical ROM. LUNGS/CHEST: Lungs CTA bilaterally, non-labored respirations, normal A/P diameter, symmetrical expansion, no chest wall deformity HEART (CV/PV): Regular rate and rhythm without murmur, no peripheral edema, no JVD. ABDOMEN: Soft, non-distended, no guarding. MSK: Normal ROM, no swelling/deformity to bilateral UEs or LEs, moving all extremities without weakness, no cyanosis, spine midline without tenderness, normal curvature. NEURO: Mental Status AAOx4 - alert to person, place, time, events No facial droop, no forehead involvement. Motor: No focal weakness - strength 5/5 in bilateral UEs and LEs, proximal and distal, symmetric. Sensory: sensation intact to light touch globally. Gait normal: patient ambulated without ataxia into ED room. PSYCH: euthymic, cooperative, pleasant, appropriate speech Course Vital Signs Vital signs: Vital Signs Temperature 37.3 C 04/13/25 09:01 Pulse 104 H 04/13/25 09:01 Respiratory Rate 12 04/13/25 09:01 Blood Pressure 148/78 H 04/13/25 09:01 Pulse Oximetry 92 04/13/25 09:01 Temperature 37.3 C 04/13/25 09:01 Temperature Source Oral 04/13/25 09:01 Pulse 51 L 04/13/25 12:10 Pulse 104 H 04/13/25 12:10 Respiratory Rate 17 04/13/25 12:10 Respiratory Effort Normal, Non-Labored 04/13/25 09:28 Respiratory Depth Normal 04/13/25 09:28 Respiratory Pattern Normal 04/13/25 09:28 Blood Pressure 125/57 L 04/13/25 12:07 Blood Pressure Mean 79 04/13/25 12:07 Blood Pressure Position Sitting 04/13/25 09:01 Pulse Oximetry 93 04/13/25 12:10 Oxygen Delivery Method Room Air 04/13/25 09:01 Oxygen Flow Rate 0 04/13/25 09:01 Pain Level 1 04/13/25 09:01 Lab/Test Results Lab/Test Results: Laboratory Tests Range/Units 04/13/25 04/13/25 09:23 10:35 WBC (4.4-10.8) 10^3/uL 10.56 RBC (3.93-5.22) 10^6/uL 3.58 L Hgb (11.2-15.7) g/dL 11.3 Hct (36.0-46.0) % 32.6 L MCV (80-95) fL 91 MCH (27.0-33.0) pg 31.6 MCHC (32.0-36.0) % 34.7 RDW (11.7-14.6) % 14.0 Plt Count (130-400) 10^3/uL 221 MPV (8.0-11.0) fL 9.3 Immature Gran % % 0.7 Neutrophils % % 83.1 Lymphocytes % % 4.6 Monocytes % % 5.9 Eosinophils % % 5.5 Basophils % % 0.2 Nucleated RBC % (0.0-0.3) % 0.0 Absolute Neutrophils (1.2-6.7) 10^3/uL 8.78 H Absolute Lymphocytes (1.2-3.4) 10^3/uL 0.49 L Absolute Monocytes (0.1-0.8) 10^3/uL 0.62 Absolute Eosinophils (0.0-0.7) 10^3/uL 0.58 Absolute Basophils (0.0-0.2) 10^3/uL 0.02 D-Dimer (<500) ng/mlFEU 676 H Sodium (136-145) mmol/L 131 L Potassium (3.5-5.1) mmol/L 3.9 Chloride (98-107) mmol/L 97 L Carbon Dioxide (21.0-32.0) mmol/L 23.8 Anion Gap (3-11) mmol/L 10.2 BUN (7-18) mg/dL 16 Creatinine (0.55-1.02) mg/dL 1.3 H Est GFR (CKD-EPI 2020) (mL/min/1.73m2) 45.92 Glucose (74-106) mg/dL 138 H Calcium (8.5-10.1) mg/dL 9.0 Magnesium (1.8-2.4) mg/dL 1.9 Total Bilirubin (0.2-1.0) mg/dL 0.6 AST (15-37) U/L 15 ALT (14-59) U/L 20 Alkaline Phosphatase (46-116) U/L 83 Troponin I (<or=51) ng/L 7 7 Total Protein (6.4-8.2) g/dL 6.6 Albumin (3.4-5.0) g/dL 3.0 L Lipase (<78) U/L 11 Medical Decision Making This dictation utilizes [id number] dictation software and may contain unedited grammatical errors. 64 year-old female presents to ED today by POV/ambulating with a chief complaint of chest pain, sternal, awoken from sleep by the pain at 0430 this morning, took nitro x3 with resolution prior to EMS arrival- given 324mg ASA by EMS- declined IV in ambulance. Quality described as pain worse with deep breathing and palpation, no radiation to diaphoresis, dizziness, near syncope, endorses a headache on time of arrival, denies shortness of breath. Severity is described as severe at onset- very mild now. Palliating factors include nothing specific. Provoking factors include nothing specific. Events leading up to the incident/Associated Symptoms: Patient has a history of atypical chest pain and CAD, hypertension, COPD. Family and social history: Tobacco use. Pertinent exam findings / vital signs include mild pleuritic chest tenderness without crepitus to the central chest, lungs CTA, benign cardiac exam, nontoxic and afebrile, mildly tachycardic. Differential / pathologies of concern include ACS, PE, pneumonia, URI, anxiety, pancreatitis. Diagnostic studies of: - CBC, CMP, D-dimer, magnesium, serial troponins, lipase, EKG, x-ray chest. - CBC without acute actionable abnormality - CMP shows no actionable abnormality with baseline creatinine 1.3 - Magnesium within normal limits - Serial troponin stable with reliable onset - Lipase negative - D-dimer 676, age-adjusted negative - X-ray chest shows no acute pathology - EKG shows sinus tachycardia 104 bpm with low voltage, no ST depressions or reciprocal elevations, poor R wave progression, no STEMI Interventions of: -None - patient received meds en route. ED Course/Assessment/Plan: 64-year-old female presents with chest tenderness, it is unclear whether it is pleuritic or not, she is stable throughout visit with very mild pain, received aspirin by EMS as well as a DuoNeb for shortness of breath, requested Ativan for anxiety here and received 1 mg p.o, her troponins are stable, D-dimer is negative by years criteria, no abnormality seen on chest x-ray with no other actionable abnormality. She is a 3 on HEART score and is reasonable for outpatient follow-up, the patient was comfortable with this disposition and she will return for any acute worsening. Findings not consistent with ACS, PE, pneumonia, pancreatitis, acute abdomen. Disposition of Chest Pain of Uncertain Etiology. Patient verbalized understanding of the plan and return to ED criteria and engaged in shared decision making. Medical Records Medical records reviewed: Yes I reviewed the patient's medical records. Imaging Data Radiologic Study: Attestation: I personally reviewed and interpreted this imaging study as follows: Imaging: X-Ray Radiologist's impression: EXAM: XR PORTABLE CHEST AP CLINICAL HISTORY: chest pain TECHNIQUE: 2D digital imaging was performed. COMPARISON: CR XR CHEST 2V PA LATERAL from 05/05/2024 CR XR CHEST 2V PA LATERAL from 09/14/2024 FINDINGS: Exam is limited by for pulmonary inflation. LUNGS: Underlying chronic interstitial changes. No focal infiltrate or effusion. No pleural abnormality seen. HEART: Normal size. AORTA: Normal diameter. BONES: Unremarkable for age. Soft tissues: Unremarkable. IMPRESSION: Limited exam. No acute findings. Lab Data Lab results reviewed: Yes I reviewed the patient's lab results. Labs: Laboratory Tests Range/Units 04/13/25 04/13/25 09:23 10:35 WBC (4.4-10.8) 10^3/uL 10.56 RBC (3.93-5.22) 10^6/uL 3.58 L Hgb (11.2-15.7) g/dL 11.3 Hct (36.0-46.0) % 32.6 L MCV (80-95) fL 91 MCH (27.0-33.0) pg 31.6 MCHC (32.0-36.0) % 34.7 RDW (11.7-14.6) % 14.0 Plt Count (130-400) 10^3/uL 221 MPV (8.0-11.0) fL 9.3 Immature Gran % % 0.7 Neutrophils % % 83.1 Lymphocytes % % 4.6 Monocytes % % 5.9 Eosinophils % % 5.5 Basophils % % 0.2 Nucleated RBC % (0.0-0.3) % 0.0 Absolute Neutrophils (1.2-6.7) 10^3/uL 8.78 H Absolute Lymphocytes (1.2-3.4) 10^3/uL 0.49 L Absolute Monocytes (0.1-0.8) 10^3/uL 0.62 Absolute Eosinophils (0.0-0.7) 10^3/uL 0.58 Absolute Basophils (0.0-0.2) 10^3/uL 0.02 D-Dimer (<500) ng/mlFEU 676 H Sodium (136-145) mmol/L 131 L Potassium (3.5-5.1) mmol/L 3.9 Chloride (98-107) mmol/L 97 L Carbon Dioxide (21.0-32.0) mmol/L 23.8 Anion Gap (3-11) mmol/L 10.2 BUN (7-18) mg/dL 16 Creatinine (0.55-1.02) mg/dL 1.3 H Est GFR (CKD-EPI 2020) (mL/min/1.73m2) 45.92 Glucose (74-106) mg/dL 138 H Calcium (8.5-10.1) mg/dL 9.0 Magnesium (1.8-2.4) mg/dL 1.9 Total Bilirubin (0.2-1.0) mg/dL 0.6 AST (15-37) U/L 15 ALT (14-59) U/L 20 Alkaline Phosphatase (46-116) U/L 83 Troponin I (<or=51) ng/L 7 7 Total Protein (6.4-8.2) g/dL 6.6 Albumin (3.4-5.0) g/dL 3.0 L Lipase (<78) U/L 11 PFSH All Active Problems (Updated 04/13/25 @ 13:18 by WHIT Wiggins) Chest pain of uncertain etiology (Acute) UTI (urinary tract infection) (Acute) Hyperglycemia (Acute) Acute adrenal insufficiency (Acute) URI (upper respiratory infection) (Acute) Headache (Acute) Urinary tract infection (Acute) Atypical chest pain (Acute) Hypomagnesemia (Acute) COVID-19 (Acute) Coronary artery disease (Chronic) Chest pain (Acute) CAD (coronary atherosclerotic disease) (Acute) 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 (Acute) Type 1 diabetes mellitus with diabetic polyneuropathy (Acute) Primary osteoarthritis of both first carpometacarpal joints (Acute 12/22/17) Hypertension (Chronic) Insomnia (Acute) GERD (gastroesophageal reflux disease) (Chronic) Chronic kidney disease (Chronic) COPD (chronic obstructive pulmonary disease) (Chronic) Mixed anxiety depressive disorder (Acute) Medical History Fibromyalgia Panic disorder Mental disorder Pernicious anemia Proliferative retinopathy due to DM On care home drug therapy Epigastric pain Diarrhea Wheezing Dupuytren's disease of palm Low back pain CKD stage 3 due to type 2 diabetes mellitus Acute exacerbation of chronic obstructive airways disease Allergic rhinitis 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 Insomnia Surgical History H/O lumpectomy Hx of tubal ligation section x2. No complications. Coronary Stent Cholecystectomy Appendectomy Family History Brother Diabetes Hypertension Heart disease Stroke Obesity Chronic headaches Arthritis Brother Arthritis Chronic headaches Diabetes Heart disease Hypertension Obesity Stroke Father Heart disease Stroke Hypertension Chronic headaches Sister Diabetes Obesity Osteoporosis Daughter Migraine Obesity Brother Arthritis Diabetes Chronic headaches Hypertension Obesity Stroke Mother Asthma Arthritis Diabetes Obesity Stroke Glaucoma Social History Smoking/Tobacco Use Status: Former Tobacco Use Quit Date: 04/13/19 Pack-years: 45 Tobacco: How many years used: 45 Quit status: considering quitting Smoking risk assessment performed?: Yes Alcohol Intake: never Drug use: Never Substance use type: does not use Details: Quit smoking 6 months ago. Household members: friend(s) Housing: apartment Number of Children: 3 number of grandchildren: 14 current occupation: none What is your relationship status?: Panel score (0-1 are the most socially isolated patients): 0 What type of physical activity do you participate in: none Do you feel safe at home: Yes Do you feel safe in your relationship?: Yes
== END 2025-04-13 14:07 | disposition home or self-care (01) ==
PROVIDERS: Emergency Provider Physician Assistant; PCP Nurse Practitioner Family
DX: R07.9 Chest pain, unspecified (principal); R06.02 Shortness of breath; I10 Essential (primary) hypertension; E10.9 Type 1 diabetes mellitus without complications
CPT/HCPCS: 99284 ×2; 36415; 36416; 82962; 80053; 83690; 93005; 71045; 83735; 84484; 85025; 85379; 93010

== ENCOUNTER 2025-05-08 21:03 | Observation (INO) | payer MEDICARE, MEDICAID, SELFPAY ==
[2025-05-08] VITALS (27 sets, daily range): BP systolic 106–157; BP diastolic 59–102; PULSE 95–115; RESP 13–28; TEMP 36.6; O2SAT 90–96
--- NOTE | 2025-05-08 21:00 | RT.EKG_ITS ---
APPROVED REPORT Exam: Resting ECG Reason for Exam: chest pain Patient Location: E HR:101 bpm ECG Measurements Heart Rate 101 AXIS W[place] 195 P 51 QRSd 83 QRS -4 QT 352 T 62 QTc 456 Conclusion Sinus tachycardia...rate> 99
--- NOTE | 2025-05-08 21:15 | DI.RAD_ITS ---
Exam(s) XR PORTABLE CHEST AP EXAM: XR PORTABLE CHEST AP CLINICAL HISTORY: chest pain TECHNIQUE: 2D digital imaging was performed of the chest. One image was obtained. An AP view was obtained. COMPARISON: CR XR PORTABLE CHEST AP from 04/20/2024 CR XR CHEST 2V PA LATERAL from 09/14/2024 CR XR PORTABLE CHEST AP from 04/13/2025 FINDINGS: There is poor inspiration. MEDIASTINUM: Normal. HEART: Normal. PULMONARY VASCULATURE: Normal. LUNGS: There again seen interstitial markings in the lungs, left greater than right. No new focal infiltrates are seen. PLEURAL SPACE: No pleural effusion or pneumothorax. BONE:Within normal limits for the patient's age. OTHER FINDINGS:There are surgical clips seen in the right upper quadrant of the abdomen. IMPRESSION: 1. No acute pulmonary findings. 2. Stable interstitial markings in the lung, presumably chronic. 3. The preliminary [facility] report was reviewed. DATA REPOSITORY: RADIATION DOSE DELIVERED:
--- NOTE | 2025-05-08 21:22 | W.ED.GENAD ---
Discharge Plan Disposition Patient Disposition: Admit to [facility] Condition: Stable Discharge Details Clinical Impression: Chest pain Primary Care Provider: Jeny Almonte ED Provider: Branden Sqeueira [place] Meds and New Rx's Prescriptions: No Action nystatin 100,000 unit/mL Suspension 5 ml PO QID PRN PRN naloxone [Narcan] 4 mg/actuation [place],Non-Aerosol 4 mg INTRANASAL PRN PRN nystatin 100,000 unit/mL suspension 500,000 unit buccal QID Qty: 480 0RF Rx Instructions: administer 1/2 of dose in each side of the mouth, hold in mouth as long as possible, then spit benzonatate 100 mg capsule 100 mg PO TID PRN (Reason: cough) Qty: 14 0RF (DME) rolling walker with seat Qty: 1 0RF Rx Instructions: As directed with ambulation insulin aspart U-100 [Novolog FlexPen U-100 Insulin] 300 UNITS/3 ML insulin pen 2 - 20 units Sub-Q 0800,1200,1700 Rx Instructions: Dispense one pen see sliding scale bupropion HCl 150 mg tablet sustained-release 12 hr 1 tab PO BID Patient Comments: TAKE ONE TABLET BY MOUTH TWICE A DAY lorazepam 0.5 mg tablet 0.5 mg PO BID PRN Patient Comments: TAKE ONE TABLET BY MOUTH EVERY 6 HOURS NEEDED FOR ANXIETY dexlansoprazole [Dexilant] 30 mg capsule,biphase delayed releas 30 mg PO DAILY isosorbide dinitrate 30 mg tablet 30 mg PO DAILY Patient Comments: TAKE ONE TABLET BY MOUTH EVERY DAY omeprazole 40 mg capsule,delayed release(DR/EC) 40 mg PO DAILY Patient Comments: TAKE ONE CAPSULE BY MOUTH EVERY DAY duloxetine 30 mg capsule,delayed release(DR/EC) 30 mg PO DAILY Patient Comments: TAKE ONE CAPSULE BY MOUTH EVERY DAY Mounjaro 10 mg/0.5 mL pen injector 10 mg SUBCUT .weekly Patient Comments: INJECT 10MG SUBCUTANEOUSLY EVERY WEEK, ROTATE INJECTION SITES phenazopyridine [Pyridium] 200 mg tablet 200 mg PO TID PRNQty: 6 0RF nitroglycerin [Nitrostat] 0.4 MG tablet, sublingual 0.4 mg Sublingual PRN PRN cyclobenzaprine 10 mg tablet 10 mg PO Q8H PRN PRN hydrocodone-acetaminophen 5-325 mg tablet 1 tab PO Q8H PRN PRN Patient Comments: TAKE ONE TABLET BY MOUTH EVERY 6 TO 8 HOURS NEEDED aspirin 81 mg tablet,delayed release (DR/EC) 81 mg PO DAILY Patient Comments: TAKE ONE TABLET BY MOUTH EVERY DAY fluticasone propionate 50 mcg/actuation spray,suspension 1 spray INTRANASAL DAILY Patient Comments: INSTILL 2 SPRAYS NASALLY DAILY duloxetine 60 mg capsule,delayed release(DR/EC) 60 mg PO DAILY Patient Comments: TAKE ONE CAPSULE BY MOUTH EVERY DAY dexlansoprazole [Dexilant] 60 mg capsule,biphase delayed releas 60 mg PO DAILY docusate sodium 250 mg Capsule 250 mg PO DAILY PRN insulin glargine [Basaglar KwikPen U-100 Insulin] 100 unit/mL (3 mL) insulin pen 30 unit SUBCUT QPM Patient Comments: INJECT 60 UNITS SUBCUTANEOUSLY ONCE DAILY (30 UNITS EVERY MORNING AND 30 UNITS QPM) cholecalciferol (vitamin D3) [Vitamin D3] 25 mcg (1,000 unit) capsule 1,000 unit PO DAILY Patient Comments: no longer taking 05/19/ MG lidocaine [Lidoderm] 5 % adhesive patch,medicated 1 patch topical DAILY PRNQty: 15 0RF Rx Instructions: leave on most painful area for up to 12 hrs atorvastatin 80 mg tablet 40 mg PO BID Patient Comments: TAKE ONE TABLET AB BY MOUTH DAILY (cuts tab in half, takes morning and night to reduce side effects) clopidogrel 75 mg tablet 75 mg PO DAILY Patient Comments: TAKE ONE TABLET AB BY MOUTH DAILY magnesium oxide 400 mg (241.3 mg magnesium) tablet 400 mg PO BID lisinopril 2.5 mg tablet 2.5 mg PO DAILY Patient Comments: TAKE ONE TABLET BY MOUTH EVERY DAY HPI General Mode of arrival: EMS. Date/Time Provider Initiated Documentation: 05/08/25 21:08. Limitations to Documentation: no limitations. Information obtained by: patient. History of Present Illness 64 year old F presents to the emergency department with the chief complaint of chest pain, described as moderate, Quality is described as aching, and is localized to the chest. Patient reports no radiation. and it has been constant. No relieving factors improve symptom(s), No exacerbating factors reported . Patient notes chest pain; denies shortness of breath. Related Data Home Medications ?Medication ?Instructions ?Recorded ?Confirmed nitroglycerin 0.4 mg sublingual 0.4 mg sublingual PRN PRN 06/01/17 04/13/25 tablet (Nitrostat) naloxone 4 mg/actuation nasal 4 mg intranasal PRN PRN 09/10/19 04/13/25 spray (Narcan) nystatin 100,000 unit/mL oral 5 ml PO QID PRN PRN 09/10/19 04/13/25 suspension rolling walker with seat #1 ea 01/12/20 04/13/25 aspirin 81 mg tablet,delayed 81 mg PO DAILY 06/24/20 04/13/25 release cyclobenzaprine 10 mg tablet 10 mg PO Q8H PRN PRN 06/24/20 04/13/25 dexlansoprazole 60 mg 60 mg PO DAILY 06/24/20 04/13/25 capsule,biphase delayed release (Dexilant) duloxetine 60 mg capsule,delayed 60 mg PO DAILY 06/24/20 04/13/25 release fluticasone propionate 50 1 spray intranasal DAILY 06/24/20 04/13/25 mcg/actuation nasal spray,suspension hydrocodone 5 mg-acetaminophen 325 1 tab PO Q8H PRN PRN 06/24/20 04/13/25 mg tablet docusate sodium 250 mg capsule 250 mg PO DAILY PRN 07/16/20 04/13/25 insulin aspart U-100 100 unit/mL 2 - 20 units subcut 0800,1200,1700 11/15/20 04/13/25 (3 mL) subcutaneous pen (Novolog FlexPen U-100 Insulin aspart) bupropion HCl 150 mg tablet,12 hr 1 tab PO BID 02/07/22 04/13/25 sustained-release insulin glargine 100 unit/mL (3 30 unit subcut QPM 02/10/22 04/13/25 mL) subcutaneous pen (Basaglar KwikPen U-100 Insulin) cholecalciferol (vitamin D3) 25 1,000 unit PO DAILY 02/20/23 04/13/25 mcg (1,000 unit) capsule (Vitamin D3) lidocaine 5 % topical patch 1 patch topical DAILY PRN #15 ea 02/20/23 04/13/25 (Lidoderm) lorazepam 0.5 mg tablet 0.5 mg PO BID PRN 06/25/23 04/13/25 atorvastatin 80 mg tablet 40 mg PO BID 07/24/23 04/13/25 clopidogrel 75 mg tablet 75 mg PO DAILY 09/07/23 04/13/25 magnesium oxide 400 mg (241.3 mg 400 mg PO BID 09/07/23 04/13/25 magnesium) tablet lisinopril 2.5 mg tablet 2.5 mg PO DAILY 09/17/23 04/13/25 dexlansoprazole 30 mg 30 mg PO DAILY 04/20/24 04/13/25 capsule,biphase delayed release (Dexilant) isosorbide dinitrate 30 mg tablet 30 mg PO DAILY 04/20/24 04/13/25 omeprazole 40 mg capsule,delayed 40 mg PO DAILY 04/20/24 04/13/25 release duloxetine 30 mg capsule,delayed 30 mg PO DAILY 04/07/25 04/13/25 release phenazopyridine 200 mg tablet 200 mg PO TID PRN 6 doses #6 tabs 04/07/25 04/13/25 (Pyridium) tirzepatide 10 mg/0.5 mL 10 mg subcut .weekly 04/07/25 04/13/25 subcutaneous pen injector (Feli) benzonatate 100 mg capsule 100 mg PO TID PRN cough #14 caps 04/12/25 04/13/25 nystatin 100,000 unit/mL oral 500,000 unit (5 mL) buccal QID 04/12/25 04/13/25 suspension #480 mL Previous Rx's ?Medication ?Instructions ?Recorded rolling walker with seat #1 ea 01/12/20 lidocaine 5 % topical patch 1 patch topical DAILY PRN #15 ea 02/20/23 (Lidoderm) phenazopyridine 200 mg tablet 200 mg PO TID PRN 6 doses #6 tabs 04/07/25 (Pyridium) benzonatate 100 mg capsule 100 mg PO TID PRN cough #14 caps 04/12/25 nystatin 100,000 unit/mL oral 500,000 unit (5 mL) buccal QID 04/12/25 suspension #480 mL Allergies Allergy/AdvReac Type Severity Reaction Status Date / Time quetiapine (From Seroquel) Allergy Intermediate Nausea Unverified 04/13/25 09:47 amoxicillin (From Augmentin) Allergy Contraindic Unverified 04/13/25 09:47 ated clavulanic acid (From Allergy Contraindic Unverified 04/13/25 09:47 Augmentin) ated Penicillins Allergy Contraindic Unverified 04/13/25 09:47 ated Sulfa (Sulfonamide Allergy Contraindic Unverified 04/13/25 09:47 Antibiotics) ated exenatide (From [place]) AdvReac Intermediate diarrhea Unverified 04/13/25 09:47 metformin AdvReac Intermediate diarrhea Unverified 04/13/25 09:47 amitriptyline AdvReac made my Unverified 04/13/25 09:47 face go numb amoxicillin trihydrate (From AdvReac acute Unverified 04/13/25 09:47 Augmentin) kidney failure NSAIDS (Non-Steroidal AdvReac stage III Unverified 04/13/25 09:47 Anti-Inflamma kidney disease potassium clavulanate (From AdvReac acute Unverified 04/13/25 09:47 Augmentin) kidney failure General Stated Complaint: Chest Pain SADE: 3 Review of Systems All systems reviewed & are unremarkable except as noted in HPI and below Constitutional Constitutional: Denies chills, Denies fever(s) and Denies weakness Cardiovascular Cardiovascular: Reports chest pain and Denies dyspnea Respiratory Respiratory: Denies cough and Denies dyspnea Gastrointestinal Gastrointestinal: Denies abdominal pain, Denies nausea and Denies vomiting Neurologic Neurologic: Denies weakness Psychiatric Psychiatric: Denies depression Exam Const General: no acute distress Orientation: alert [facility] Head: normal to inspection Ears: external ears normal General nose exam: external nose normal Mouth: moist mucous membranes Eyes General: appearance normal, both eyes and all related structures Neck Neck: normal visual inspection Resp Effort & Inspection: normal respiratory effort and able to speak in complete sentences Auscultation: clear to auscultation bilaterally Cardio Jugular venous pressure: no JVD Rate: regular rate Skin General skin exam: no rashes or lesions noted Neuro General: patient alert and patient oriented x3 Extrem General: normal to inspection Psych Mental Status: mental status grossly normal Course Vital Signs Vital signs: Vital Signs Temperature 36.6 C 05/08/25 21:03 Pulse 100 H 05/08/25 21:03 Respiratory Rate 05/08/25 21:03 Blood Pressure 155/86 H 05/08/25 21:03 Pulse Oximetry 94 05/08/25 21:03 Temperature 36.6 C 05/08/25 21:03 Temperature Source Oral 05/08/25 21:03 Pulse 100 H 05/08/25 21:03 Respiratory Rate 14 05/08/25 21:03 Blood Pressure 155/86 H 05/08/25 21:03 Blood Pressure Position Supine 05/08/25 21:03 Pulse Oximetry 94 05/08/25 21:03 Oxygen Delivery Method Room Air 05/08/25 21:03 Oxygen Flow Rate 0 05/08/25 21:03 Pain Level 2 05/08/25 21:03 Medical Decision Making 64-year-old female with history of coronary artery disease status post stenting in 2006 per patient, former smoker, diabetes, who comes in with chest pain that started 1 hour ago. She says that it was a burning sensation but also had some pressure component. She took some antacids without relief and took 2 of her nitros which did help with the pain. She is currently pain-free, she has no leg swelling or calf tenderness. She has no abdominal tenderness. Given her history we will check a CBC, CMP and troponins. Will also obtain a chest x-ray. She has no tearing back pain and has equal peripheral pulses so I doubt dissection. She has no evidence of DVT on exam, her room air sat on my exam is 98% and her heart rate is 90 and has no pleuritic chest pain and her pain responded to nitro so I doubt PE. patient with ckd, first troponin negative. Heart score is 4, will discuss with hospitalist about admission for observation and possible echo/stress test tomorrow Differential Diagnosis Differential Diagnosis: nstemi, acs Medical Records Medical records reviewed: Yes I reviewed the patient's medical records. Lab Data Lab results reviewed: Yes I reviewed the patient's lab results. ECG Data Attestation: I personally reviewed and interpreted this ECG (s) as follows: Prior ECG tracings: available for review Interpretation: sinus tachycardia, rate of 101, no stemi PFSH All Active Problems (Updated 05/08/25 @ 22:39 by Branden Sequeira MD) Chest pain of uncertain etiology (Acute) Hyperglycemia (Acute) Acute adrenal insufficiency (Acute) URI (upper respiratory infection) (Acute) Headache (Acute) Urinary tract infection (Acute) Atypical chest pain (Acute) Hypomagnesemia (Acute) COVID-19 (Acute) Coronary artery disease (Chronic) Chest pain (Acute) CAD (coronary atherosclerotic disease) (Acute) 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 (Acute) Type 1 diabetes mellitus with diabetic polyneuropathy (Acute) Primary osteoarthritis of both first carpometacarpal joints (Acute 12/22/17) Hypertension (Chronic) Insomnia (Acute) GERD (gastroesophageal reflux disease) (Chronic) Chronic kidney disease (Chronic) COPD (chronic obstructive pulmonary disease) (Chronic) Mixed anxiety depressive disorder (Acute) Medical History Fibromyalgia Panic disorder Mental disorder Pernicious anemia Proliferative retinopathy due to DM On longterm drug therapy Epigastric pain Diarrhea Wheezing Dupuytren's disease of palm Low back pain CKD stage 3 due to type 2 diabetes mellitus Acute exacerbation of chronic obstructive airways disease Allergic rhinitis 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 Insomnia Surgical History H/O lumpectomy Hx of tubal ligation section x2. No complications. Coronary Stent Cholecystectomy Appendectomy Family History Brother Diabetes Hypertension Heart disease Stroke Obesity Chronic headaches Arthritis Brother Arthritis Chronic headaches Diabetes Heart disease Hypertension Obesity Stroke Father Heart disease Stroke Hypertension Chronic headaches Sister Diabetes Obesity Osteoporosis Daughter Migraine Obesity Brother Arthritis Diabetes Chronic headaches Hypertension Obesity Stroke Mother Asthma Arthritis Diabetes Obesity Stroke Glaucoma Social History Smoking/Tobacco Use Status: Former Tobacco Use Quit Date: 04/13/19 Pack-years: 45 Tobacco: How many years used: 45 Quit status: considering quitting Smoking risk assessment performed?: Yes Alcohol Intake: never Drug use: Never Substance use type: does not use Details: Quit smoking 6 months ago. Household members: friend(s) Housing: apartment Number of Children: 3 number of grandchildren: 14 current occupation: none What is your relationship status?: Panel score (0-1 are the most socially isolated patients): 0 What type of physical activity do you participate in: none Do you feel safe at home: Yes Do you feel safe in your relationship?: Yes
[2025-05-08 21:31] LABS: Abs Immature Grans 0.08 10^3/uL (0.0-0.06); HCT 31.1 % (36.0-46.0); HGB 10.4 g/dL (11.2-15.7); Immature Grans % 0.9 %; MCH 31.6 pg (27.0-33.0); MCHC 33.4 % (32.0-36.0); MCV 95 fL (80-95); MPV 9.3 fL (8.0-11.0); Platelet Count 294 10^3/uL (130-400); RBC 3.29 10^6/uL (3.93-5.22); RDW 13.2 % (11.7-14.6); RDW-SD 45.9 fL; WBC 9.38 10^3/uL (4.4-10.8)
[2025-05-08] MEDS: Aspirin 81 MG CHEW 243 MG PO (21:32)
[2025-05-08 21:44] LABS: INR 0.9 (0.9-1.1); PTT Activated 23.7 sec (20.6-30.2); Prothrombin Time 9.4 sec (9.1-11.1)
[2025-05-08 21:48] LABS: ALT 18 U/L (14-59); AST 17 U/L (15-37); Albumin 3.3 g/dL (3.4-5.0); Alkaline Phosphatase 98 U/L (46-116); Anion Gap 8.2 mmol/L (3-11); BUN 26 mg/dL (7-18); Bilirubin, Total 0.6 mg/dL (0.2-1.0); CO2 26.8 mmol/L (21.0-32.0); Calcium 9.2 mg/dL (8.5-10.1); Chloride 97 mmol/L (98-107); Estimated GFR 33.28 (mL/min/1.73m2); Glucose 154 mg/dL (74-106); Lipase 14 U/L (<78); Magnesium 2.1 mg/dL (1.8-2.4); Potassium 4.4 mmol/L (3.5-5.1); Sodium 132 mmol/L (136-145); Total Protein 7.1 g/dL (6.4-8.2); Troponin I 7 ng/L (<or=51)
[2025-05-08 22:41] LABS: Glucose Color Interference mg/dL (Negative); RBC 0-2 HPF (0-2); WBC 20-50 HPF (0-5)
--- NOTE | 2025-05-08 22:42 | W.PM.HP.N ---
Date of service: 05/08/25 Time of Service: 21:00 Assessment and Plan Assessment and plan (1) Chest pain of uncertain etiology: Status: Acute Assessment and plan: Chest pain with history of CAD with stents Negative troponins, EKG unremarkable Will admit for observation, stress test Telemetry, NPO (2) ISA (acute kidney injury): Status: Resolved Assessment and plan: Mild ISA likely due to dehydration Will do mid-day BMP (3) Coronary artery disease: Status: Chronic Assessment and plan: Continue home clopidogrel (4) Type 1 diabetes mellitus with diabetic polyneuropathy: Status: Acute Assessment and plan: Apparently not on any long-acting insulin A1C not available Will give resistant correctional (5) GERD (gastroesophageal reflux disease): Status: Chronic Assessment and plan: continue PPI (6) Mixed anxiety depressive disorder: Status: Acute Assessment and plan: Continue home regimen History of Present Illness History of Present Illness Chief Complaint: chest pain Narrative: Nimisha Jordan is a 64 year old woman presenting May 08 with chest pain present for most of the day. She reports that the pain started about a half hour before arrival, and feels like heartburn. She took her GERD meds and nitroglycerine without relief. Patient has a history of CAD and has stents. No shortness of breath, no N/V/D In the ED she was tachycardic to 111 with elevated BP 155/86. EKG sinus rhythm with tachycardia. CXR without acute pathology. Mild anemia hgb 10.4 hct 31.1. Mild hyponatremia, likely chronic, 132. Likely mild ISA with creatinine 1.7, BUN 26. Elevated blood glucose 154. She was given aspirin 243 mg. PMH includes recent UTI treated with nitrofurantoin, obesity on tirzepatide, IDDM, depression with anxiety on duloxetine, bupropion and lorazepam, GERD on PPI, HTN on lisinopril and isosorbide dinitrate. PFSH All Active Problems (Updated 05/08/25 @ 22:39 by Branden Sequeira MD) Chest pain of uncertain etiology (Acute) Hyperglycemia (Acute) Acute adrenal insufficiency (Acute) URI (upper respiratory infection) (Acute) Headache (Acute) Urinary tract infection (Acute) Atypical chest pain (Acute) Hypomagnesemia (Acute) COVID-19 (Acute) Coronary artery disease (Chronic) Chest pain (Acute) CAD (coronary atherosclerotic disease) (Acute) 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 (Acute) Type 1 diabetes mellitus with diabetic polyneuropathy (Acute) Primary osteoarthritis of both first carpometacarpal joints (Acute 12/22/17) Hypertension (Chronic) Insomnia (Acute) GERD (gastroesophageal reflux disease) (Chronic) Chronic kidney disease (Chronic) COPD (chronic obstructive pulmonary disease) (Chronic) Mixed anxiety depressive disorder (Acute) Medical History Fibromyalgia Panic disorder Mental disorder Pernicious anemia Proliferative retinopathy due to DM 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 Epigastric pain Diarrhea Wheezing Dupuytren's disease of palm Low back pain CKD stage 3 due to type 2 diabetes mellitus Acute exacerbation of chronic obstructive airways disease Allergic rhinitis 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 Insomnia Surgical History H/O lumpectomy Hx of tubal ligation section x2. No complications. Coronary Stent Cholecystectomy Appendectomy Family History Brother Diabetes Hypertension Heart disease Stroke Obesity Chronic headaches Arthritis Brother Arthritis Chronic headaches Diabetes Heart disease Hypertension Obesity Stroke Father Heart disease Stroke Hypertension Chronic headaches Sister Diabetes Obesity Osteoporosis Daughter Migraine Obesity Brother Arthritis Diabetes Chronic headaches Hypertension Obesity Stroke Mother Asthma Arthritis Diabetes Obesity Stroke Glaucoma Social History Smoking/Tobacco Use Status: Former Tobacco Use Quit Date: 04/13/19 Pack-years: 45 Tobacco: How many years used: 45 Quit status: considering quitting Smoking risk assessment performed?: Yes Alcohol Intake: never Drug use: Never Substance use type: does not use Details: Quit smoking 6 months ago. Household members: friend(s) Housing: apartment Number of Children: 3 number of grandchildren: 14 current occupation: none What is your relationship status?: Panel score (0-1 are the most socially isolated patients): 0 What type of physical activity do you participate in: none Do you feel safe at home: Yes Do you feel safe in your relationship?: Yes Meds Allergies and Home Medications Allergies Allergy/AdvReac Type Severity Reaction Status Date / Time quetiapine (From Seroquel) Allergy Intermediate Nausea Unverified 05/09/25 01:01 amoxicillin (From Augmentin) Allergy Contraindic Unverified 05/09/25 01:01 ated clavulanic acid (From Allergy Contraindic Unverified 05/09/25 01:01 Augmentin) ated Penicillins Allergy Contraindic Unverified 05/09/25 01:01 ated Sulfa (Sulfonamide Allergy Contraindic Unverified 05/09/25 01:01 Antibiotics) ated exenatide (From Byetta) AdvReac Intermediate diarrhea Unverified 05/09/25 01:01 metformin AdvReac Intermediate diarrhea Unverified 05/09/25 01:01 amitriptyline AdvReac made my Unverified 05/09/25 01:01 face go numb amoxicillin trihydrate (From AdvReac acute Unverified 05/09/25 01:01 Augmentin) kidney failure NSAIDS (Non-Steroidal AdvReac stage III Unverified 05/09/25 01:01 Anti-Inflamma kidney disease potassium clavulanate (From AdvReac acute Unverified 05/09/25 01:01 Augmentin) kidney failure Home Medications ?Medication ?Instructions ?Recorded ?Confirmed ?Type nitroglycerin 0.4 mg sublingual 0.4 mg sublingual PRN PRN 06/01/17 05/09/25 History tablet (Nitrostat) naloxone 4 mg/actuation nasal 4 mg intranasal PRN PRN 09/10/19 05/09/25 History spray (Narcan) nystatin 100,000 unit/mL oral 5 ml PO QID PRN PRN 09/10/19 05/09/25 History suspension rolling walker with seat #1 ea 01/12/20 05/09/25 Rx aspirin 81 mg tablet,delayed 81 mg PO DAILY 06/24/20 05/09/25 History release cyclobenzaprine 10 mg tablet 10 mg PO Q8H PRN PRN 06/24/20 05/09/25 History dexlansoprazole 60 mg 60 mg PO DAILY 06/24/20 04/13/25 History capsule,biphase delayed release (Dexilant) duloxetine 60 mg capsule,delayed 60 mg PO .COMPLEX 06/24/20 05/09/25 History release fluticasone propionate 50 1 spray intranasal DAILY 06/24/20 05/09/25 History mcg/actuation nasal spray,suspension hydrocodone 5 mg-acetaminophen 325 1 tab PO Q8H PRN PRN 06/24/20 05/09/25 History mg tablet docusate sodium 250 mg capsule 250 mg PO HS PRN 07/16/20 05/09/25 History insulin aspart U-100 100 unit/mL 2 - 20 units subcut 0800,1200,1700 11/15/20 05/09/25 History (3 mL) subcutaneous pen (Novolog FlexPen U-100 Insulin aspart) bupropion HCl 150 mg tablet,12 hr 1 tab PO BID 02/07/22 05/09/25 History sustained-release insulin glargine 100 unit/mL (3 30 unit subcut QPM 02/10/22 05/09/25 History mL) subcutaneous pen (Basaglar KwikPen U-100 Insulin) Held on 05/09/25. Instructions: Pt Stopped/Never Started cholecalciferol (vitamin D3) 25 1,000 unit PO DAILY 02/20/23 05/09/25 History mcg (1,000 unit) capsule (Vitamin D3) lidocaine 5 % topical patch 1 patch topical DAILY PRN #15 ea 02/20/23 05/09/25 Rx (Lidoderm) Held on 05/09/25. Instructions: Pt Stopped/Never Started lorazepam 0.5 mg tablet 0.5 mg PO BID PRN 06/25/23 05/09/25 History atorvastatin 80 mg tablet 40 mg PO BID 07/24/23 05/09/25 History clopidogrel 75 mg tablet 75 mg PO DAILY 09/07/23 05/09/25 History magnesium oxide 400 mg (241.3 mg 400 mg PO BID 09/07/23 05/09/25 History magnesium) tablet lisinopril 2.5 mg tablet 2.5 mg PO DAILY 09/17/23 05/09/25 History dexlansoprazole 30 mg 30 mg PO DAILY 04/20/24 04/13/25 History capsule,biphase delayed release (Dexilant) isosorbide dinitrate 30 mg tablet 30 mg PO DAILY 04/20/24 05/09/25 History omeprazole 40 mg capsule,delayed 40 mg PO DAILY 04/20/24 05/09/25 History release duloxetine 30 mg capsule,delayed 30 mg PO HS 04/07/25 05/09/25 History release phenazopyridine 200 mg tablet 200 mg PO TID PRN 6 doses #6 tabs 04/07/25 05/09/25 Rx (Pyridium) tirzepatide 10 mg/0.5 mL 10 mg subcut .weekly 04/07/25 05/09/25 History subcutaneous pen injector (Mounjaro) benzonatate 100 mg capsule 100 mg PO TID PRN cough #14 caps 04/12/25 05/09/25 Rx nystatin 100,000 unit/mL oral 500,000 unit (5 mL) buccal QID 04/12/25 05/09/25 Rx suspension #480 mL Exam Narrative Exam Narrative: General: This is a very pleasant woman in no distress HEENT: Normocephalic, atraumatic CV: tachycardic, no murmur, no distal edema Resp: CTAB Abd: soft, NTND MSK: voluntary motion x4 Neuro: Awake, alert, no focal deficits Results Labs 05/08/25 21:24 05/08/25 21:24 Labs: Laboratory Results - last 24 hr 05/08/25 05/08/25 21:24 22:15 WBC 9.38 RBC 3.29 L Hgb 10.4 L Hct 31.1 L MCV 95 MCH 31.6 MCHC 33.4 RDW 13.2 Plt Count 294 MPV 9.3 Immature Gran % 0.9 Neutrophils % 64.0 Lymphocytes % 20.6 Monocytes % 7.6 Eosinophils % 6.3 Basophils % 0.6 Nucleated RBC % 0.0 Absolute Neutrophils 6.01 Absolute Lymphocytes 1.93 Absolute Monocytes 0.71 Absolute Eosinophils 0.59 Absolute Basophils 0.06 PT 9.4 INR 0.9 APTT 23.7 Sodium 132 L Potassium 4.4 Chloride 97 L Carbon Dioxide 26.8 Anion Gap 8.2 BUN 26 H Creatinine 1.7 H Est GFR (CKD-EPI 2020) 33.28 Glucose 154 H Calcium 9.2 Magnesium 2.1 Total Bilirubin 0.6 AST 17 ALT 18 Alkaline Phosphatase 98 Troponin I 7 Total Protein 7.1 Albumin 3.3 L Lipase 14 Urine Color [place] Urine Clarity Clear Urine pH Not Applicable Ur Specific [place] 1.014 Urine Protein Color Interference Urine Ketones Color Interference Urine Blood Color Interference Urine Nitrite Color Interference Urine Bilirubin Color Interference Urine Urobilinogen Color Interference Ur Leukocyte Esterase Color Interference Urine RBC 0-2 Urine WBC 20-50 H Ur Epithelial Cells Moderate Urine Crystals Negative Urine Bacteria Few Urine Casts Negative Urine Mucus Negative Ur Culture Indicated? No/Sq. Contamination Urine Glucose Color Interference Last Vital Signs Temp 36.6 C 05/08/25 21:03 Pulse 100 H 05/08/25 21:20 Resp 28 H 05/08/25 21:20 BP 136/67 05/08/25 21:15 Pulse Ox 93 05/08/25 21:20 Time Spent Time spent with Patient: <40 minutes Time was spent: preparing to see the patient(eg.review tests), obtaining and/or reviewing separately otained hiistory, ordering medications,tests, procedures, referring, communicating with other health child care associate teacher, indepentently interpreting results, counseling the patient and care coordination
[2025-05-08 22:47] LABS: Troponin I 7 ng/L (<or=51)
--- NOTE | 2025-05-08 22:53 | DI.VRAD_ITS ---
PROCEDURE INFORMATION: Exam: XR Chest Exam date and time: 05/08/2025 9:42 PM Age: 64 years old Clinical indication: Other: Chest pain TECHNIQUE: Imaging protocol: Radiologic exam of the chest. Views: 1 view. Total images: 1 COMPARISON: CR XR PORTABLE CHEST AP 04/13/2025 12:08 PM FINDINGS: Lungs: Lungs are clear without consolidation. Chronic interstitial prominence. Pulmonary randall: Unremarkable. Pleural spaces: No pleural effusion or pneumothorax. Heart/Mediastinum: Unremarkable. Bones/joints: No acute finding. Intraperitoneal space: Visualized upper abdomen unremarkable. IMPRESSION: No acute findings. Dictated and Authenticated by: Murtaza Collado MD. Orderin Fabby Otero MD
[2025-05-09] VITALS (128 sets, daily range): BP systolic 101–134; BP diastolic 34–71; PULSE 78–102; RESP 11–41; TEMP 36.1–36.8; O2SAT 85–98
[2025-05-09 00:24] LABS: Troponin I 7 ng/L (<or=51)
[2025-05-09] MEDS: Acetaminophen 325 MG TAB 650 MG PO (01:53)
--- NOTE | 2025-05-09 07:27 | W.PC.ACHO ---
Registration Status: ADM ANAMIKA Primary Language: Preferred Language: Korean ED Information & Data Chief Complaint Chest Pain 05/08/25 21:27 Triage Note BIBMES. CP half hour prior 05/08/25 21:03 to 911 call. epigastric down to stomach. hx of GERD, took reflux meds~unrelieved. then 2x nitro tablet. 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 Spasm Sleep disorder Acute sinusitis Cataracts, bilateral RLS (restless legs syndrome) PTSD (post-traumatic stress disorder) Tobacco user Dysrhythmia Anemia Hypomagnesemia Hyperlipidemia Disorder of both eyes Diabetes mellitus with neurologic complication, with long-term current use of insulin Chronic renal impairment associated with type 2 diabetes mellitus Benign neoplasm of peripheral nerves and autonomic nervous system, unspecified Benign neoplasm of peripheral nerve Colon polyp Urinary tract infection Hypertension Renal insufficiency Depression Diabetes Insomnia (Last Reviewed 04/20/24 @ 14:12 by Liat Morales, JONAH) H/O lumpectomy Hx of tubal ligation section Coronary Stent Cholecystectomy Appendectomy Most Recent Vital Signs Temperature 36.6 C 05/08/25 21:03 Temperature Source Oral 05/08/25 21:03 Pulse 86 05/09/25 06:00 Pulse 96 H 05/08/25 23:20 Respiratory Rate 15 05/09/25 06:00 Respiratory Effort Normal, Non-Labored 05/09/25 06:37 Respiratory Depth Normal 05/09/25 06:37 Respiratory Pattern Normal 05/09/25 06:37 Blood Pressure 126/34 L 05/09/25 06:00 Blood Pressure Mean 64 05/09/25 06:00 Blood Pressure Position Supine 05/08/25 21:03 Pulse Oximetry 91 L 05/09/25 06:37 Oxygen Delivery Method Room Air 05/09/25 06:37 Oxygen Flow Rate 0 05/09/25 06:37 Pain Level 2 05/08/25 21:03 Allergies quetiapine (From Seroquel) Allergy (Intermediate, Unverified 05/09/25 01:01) Nausea amoxicillin (From Augmentin) Allergy (Unverified 05/09/25 01:01) Contraindicated clavulanic acid (From Augmentin) Allergy (Unverified 05/09/25 01:01) Contraindicated Penicillins Allergy (Unverified 05/09/25 01:01) Contraindicated Sulfa (Sulfonamide Antibiotics) Allergy (Unverified 05/09/25 01:01) Contraindicated exenatide (From Byetta) Adverse Reaction (Intermediate, Unverified 05/09/25 01:01) diarrhea metformin Adverse Reaction (Intermediate, Unverified 05/09/25 01:01) diarrhea amitriptyline Adverse Reaction (Unverified 05/09/25 01:01) made my face go numb amoxicillin trihydrate (From Augmentin) Adverse Reaction (Unverified 05/09/25 01:01) acute kidney failure NSAIDS (Non-Steroidal Anti-Inflamma Adverse Reaction (Unverified 05/09/25 01:01) stage III kidney disease pt states stage 4 now potassium clavulanate (From Augmentin) Adverse Reaction (Unverified 05/09/25 01:01) acute kidney failure Active Medications Generic Name Dose Route Start Last Admin Trade Name Freq PRN Reason Stop Dose Admin Acetaminophen 650 mg 05/08/25 22:38 05/09/25 01:53 Acetaminophen 325 Mg Tab PO 650 mg Q4H PRN PRN Administration Aspirin 243 mg 05/09/25 08:30 05/08/25 21:32 Aspirin 81 Mg Chew PO 243 mg DAILY CARRILLO Administration IV IV Catheter Type [Left Saline Lock Antecubital] IV Catheter Gauge [Left 18 Antecubital] Diet Orders Category Date Time Status Nothing Per Oral [DIET] Nutrition 05/08/25 22:40 Active Diagnostics 05/09/25 05/08/25 05/08/25 Range/Units 00:00 22:15 21:24 WBC 9.38 (4.4-10.8) 10^3/uL RBC 3.29 L (3.93-5.22) 10^6/uL Hgb 10.4 L (11.2-15.7) g/dL Hct 31.1 L (36.0-46.0) % MCV 95 (80-95) fL MCH 31.6 (27.0-33.0) pg MCHC 33.4 (32.0-36.0) % RDW 13.2 (11.7-14.6) % Plt Count 294 (130-400) 10^3/uL MPV 9.3 (8.0-11.0) fL Immature Gran % 0.9 % Neutrophils % 64.0 % Lymphocytes % 20.6 % Monocytes % 7.6 % Eosinophils % 6.3 % Basophils % 0.6 % Nucleated RBC % 0.0 (0.0-0.3) % Absolute Neutrophils 6.01 (1.2-6.7) 10^3/uL Absolute Lymphocytes 1.93 (1.2-3.4) 10^3/uL Absolute Monocytes 0.71 (0.1-0.8) 10^3/uL Absolute Eosinophils 0.59 (0.0-0.7) 10^3/uL Absolute Basophils 0.06 (0.0-0.2) 10^3/uL PT 9.4 (9.1-11.1) sec INR 0.9 (0.9-1.1) APTT 23.7 (20.6-30.2) sec Sodium 132 L (136-145) mmol/L Potassium 4.4 (3.5-5.1) mmol/L Chloride 97 L (98-107) mmol/L Carbon Dioxide 26.8 (21.0-32.0) mmol/L Anion Gap 8.2 (3-11) mmol/L BUN 26 H (7-18) mg/dL Creatinine 1.7 H (0.55-1.02) mg/dL Est GFR (CKD-EPI 2020) 33.28 (mL/min/1.73m2) Glucose 154 H (74-106) mg/dL Calcium 9.2 (8.5-10.1) mg/dL Magnesium 2.1 (1.8-2.4) mg/dL Total Bilirubin 0.6 (0.2-1.0) mg/dL AST 17 (15-37) U/L ALT 18 (14-59) U/L Alkaline Phosphatase 98 (46-116) U/L Troponin I 7 7 7 (<or=51) ng/L Total Protein 7.1 (6.4-8.2) g/dL Albumin 3.3 L (3.4-5.0) g/dL Lipase 14 (<78) U/L Urine Color [place] (Yellow) Urine Clarity Clear (Clear) Urine pH Not Applicable Ur Specific [place] 1.014 (1.005-1.025) Urine Protein Color Interference (Neg-Trace) mg/dL Urine Ketones Color Interference (Negative) mg/dL Urine Blood Color Interference (Negative) Urine Nitrite Color Interference (Negative) Urine Bilirubin Color Interference (Negative) Urine Urobilinogen Color Interference (Up to 0.2) mg/dL Ur Leukocyte Esterase Color Interference (Negative) Urine RBC 0-2 (0-2) HPF Urine WBC 20-50 H (0-5) HPF Ur Epithelial Cells Moderate (Negative) HPF Urine Crystals Negative (Negative) HPF Urine Bacteria Few (Negative) HPF Urine Casts Negative (Negative) LPF Urine Mucus Negative (Negative) Ur Culture Indicated? No/Sq. Contamination Urine Glucose Color Interference (Negative) mg/dL Intake and Output - 24 Hour Total 05/08/25 20:57 thru 05/09/25 01:57 Intake Total 30 Balance 30 Weight 87.6 kg Intake: Oral 30 Other: # Voids 1 Falls Risk Assessment History of Falls No History 05/08/25 21:27 Contributing Factors No Factors 05/08/25 21:27 Ambulatory Aids Independent 05/08/25 21:27 Tubes/Lines None 05/08/25 21:27 Gait Evaluation No gait disturbance 05/08/25 21:27 Fall Total Score 0 05/08/25 21:27 Level of Risk Standard/Low Risk 05/08/25 21:27 v v v v v v v v v Sending and/or Receiving Nurses: Please use comment section below to note any information pertinent to the patient hand-off not included above. Information / Comments: Pt came to ED with c/o CP which resolved with two pills of nitro before reaching ER. Lives home independently. NPO since last night. Report received from: FILIBERTO Caba
[2025-05-09] MEDS: Normal Saline Flush 10 ML SYR IVP ×2 (09:00→20:53)
--- NOTE | 2025-05-09 09:02 | PDOC.CMIN ---
Date of service: 05/09/25 Time of Service: 09:02 Care Management Initial Assmt Initial Assessment Reason for Hospitalization: Chest pain Functional Status/Living Situation Patient Presentation: Nimisha was sitting up in bed visiting with her boyfriend Yesenia when CM met with her. She had just returned after having a stress test and was having a snack. Nimisha was admitted with chest pain. She has a history of CAD with stenting so was admitted overnight for testing and observation. Her troponins were negative and her EKG was without concerning findings. Nimisha informed that she developed some chest pain during the injection given to her for the stress test but has had none since. Nimisha lives in [place] with her boyfriend Jj. She has 3 children who live locally and described the family as fairly close but stated the kids don't visit her as often as she would like. Her daughter Denae is her paid caregiver through [employer] and helps with bathing, dressing and light household task for 3 hours a day 3 times a week. Yesenia does the cooking and the shopping. Nimisha has an electric wheelchair, 2 walkers, and a cane, all of which she uses as needed. Town of Residence: [place] Resides with: Alone Significant Other/Family: Local Natural Supports: children and boyfriend Employment Status: Retired Instrumental Activities of Daily Living (ADLs): Requires support Medications Medication Management: No Issues/Barriers identified Physical Functioning/Mobility Assistive Device: w/c, walker, cane Advance Directives Advance Directives: Do you have an Advance Directive: Y 06/14/19, 15:30 AD On File at [facility]: Y 06/28/19, 09:32 Date Asked 05/19/23 05/19/23, 19:14 AD Date Reviewed 05/08/25 05/08/25, 21:19 COLST On File at [facility] No 12/13/20, 11:12 COLST Date Scanned Code Status Resuscitation Status Full Code Portal Pt does not currently have a portal and education provided: Yes Insurance Coverage/Financial Issues Insurance: [employer] Medicare Replacement Care Team Visit Care Team Role Provider Type Jeny Almonte Primary Care Provider NON-[facility] STAFF PHYSICIAN Branden Sequeira MD Emergency Provider [facility] STAFF PHYSICIAN Andrew Fermin MD Admit Provider [facility] STAFF PHYSICIAN Attending Provider Discharge Potential Discharge Needs: PCP F/U Appt Anticipated Barriers to Discharge: None Identified Patient/Family Education Needs: Review discharge instructions, discuss Ask Me Three Transportation: Private vehicle Plan: Anticipate Nimisha will be discharged home with a resumption of her caregiver services when medically cleared. She will follow up with her PCP and plan of care as prescribed and transport via private vehicle with family. CM will follow and continue to asssess for dicharge needs. Social Determinants of Health Screening Social Determinants of health last assessed in clinic: 05/09/25 Will the Patient Participate in the Screening?: Yes Do you worry about having a steady place to live?: no Problems where you live: no known problems In the past 12 months, have you had to go without electric, gas, oil or water in your home?: no 1. Within the past 12 months, we worried whether our food would run out before we got money to buy more.: Never true 2. Within the past 12 months, the food we bought just didn't last and we didn't have money to get more.: Never true Has lack of transportation kept you from medical appointments or from doing things needed for daily living?: yes Has anyone in your life made you feel unsafe or unsupported?: no How hard is it for you to pay for the very basics like food, housing, medical care, and heating? Would you say it is:: Not hard at all Do you want help finding or keeping work or a job?: I do not need or want help If for any reason you need help with day-to-day activities such as bathing, preparing meals, shopping, managing finances, etc., do you get the help you need?: I get all the help I need How often do you feel lonely or isolated from those around you?: Always Do you speak a language other than [place] at home?: No Does the patient want assistance with any of the above?: No Comments: lives in basement apartment. would like Health Related Social Needs Health related social needs: transportation insecurity (Z59.82) and feeling lonely/isolated (Z60.8) Health related social needs details: dose not want assistance at this time PFSH All Active Problems (Updated 05/08/25 @ 22:39 by Branden Sequeira MD) Chest pain of uncertain etiology (Acute) Hyperglycemia (Acute) Acute adrenal insufficiency (Acute) URI (upper respiratory infection) (Acute) Headache (Acute) Urinary tract infection (Acute) Atypical chest pain (Acute) Hypomagnesemia (Acute) COVID-19 (Acute) Coronary artery disease (Chronic) Chest pain (Acute) CAD (coronary atherosclerotic disease) (Acute) 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 (Acute) Type 1 diabetes mellitus with diabetic polyneuropathy (Acute) Primary osteoarthritis of both first carpometacarpal joints (Acute 12/22/17) Hypertension (Chronic) Insomnia (Acute) GERD (gastroesophageal reflux disease) (Chronic) Chronic kidney disease (Chronic) COPD (chronic obstructive pulmonary disease) (Chronic) Mixed anxiety depressive disorder (Acute) Medical History Fibromyalgia Panic disorder Mental disorder Pernicious anemia Proliferative retinopathy due to DM 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 Epigastric pain Diarrhea Wheezing Dupuytren's disease of palm Low back pain CKD stage 3 due to type 2 diabetes mellitus Acute exacerbation of chronic obstructive airways disease Allergic rhinitis 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 Insomnia Surgical History H/O lumpectomy Hx of tubal ligation section x2. No complications. Coronary Stent Cholecystectomy Appendectomy Family History Brother Diabetes Hypertension Heart disease Stroke Obesity Chronic headaches Arthritis Brother Arthritis Chronic headaches Diabetes Heart disease Hypertension Obesity Stroke Father Heart disease Stroke Hypertension Chronic headaches Sister Diabetes Obesity Osteoporosis Daughter Migraine Obesity Brother Arthritis Diabetes Chronic headaches Hypertension Obesity Stroke Mother Asthma Arthritis Diabetes Obesity Stroke Glaucoma Social History Smoking/Tobacco Use Status: Former Tobacco Use Quit Date: 04/13/19 Pack-years: 45 Tobacco: How many years used: 45 Quit status: considering quitting Smoking risk assessment performed?: Yes Alcohol Intake: never Drug use: Never Substance use type: does not use Details: Quit smoking 6 months ago. Household members: friend(s) Housing: apartment Number of Children: 3 number of grandchildren: 14 current occupation: none What is your relationship status?: Panel score (0-1 are the most socially isolated patients): 0 What type of physical activity do you participate in: none Do you feel safe at home: Yes Do you feel safe in your relationship?: Yes
[2025-05-09] MEDS: Lisinopril 2.5 MG TAB PO (09:46)
[2025-05-09] MEDS: Clopidogrel 75 MG TAB PO (09:46)
[2025-05-09] MEDS: buPROPion-CR 150 MG TABCR PO ×2 (09:46→20:52)
--- NOTE | 2025-05-09 10:45 | RT.EKG_ITS ---
APPROVED REPORT Exam: Resting ECG Reason for Exam: chest pain Patient Location: I HR:95 bpm ECG Measurements Heart Rate 95 AXIS IN 188 P 40 QRSd 90 QRS 1 QT 375 T 54 QTc 472 Conclusion Sinus rhythm...normal P axis, V-rate 50- 99 Low voltage, precordial leads...precordial leads <1.0mV
[2025-05-09] MEDS: Cyclobenzaprine 10 MG TAB PO ×2 (11:52→20:52)
[2025-05-09] MEDS: HYDROcodone 5/Acetaminophen 325 TAB PO ×2 (11:52→20:53)
[2025-05-09 12:38] LABS: Anion Gap 8.3 mmol/L (3-11); BUN 29 mg/dL (7-18); CO2 24.7 mmol/L (21.0-32.0); Calcium 9.1 mg/dL (8.5-10.1); Chloride 98 mmol/L (98-107); Estimated GFR 38.67 (mL/min/1.73m2); Glucose 126 mg/dL (74-106); Potassium 4.3 mmol/L (3.5-5.1); Sodium 131 mmol/L (136-145)
--- NOTE | 2025-05-09 15:49 | PHACLINREV_ITS ---
Pharmacy Admission Review Admission Clinical Review Admission Pharmacy Review: Chest pain of uncertain etiology (Acute) Type 1 diabetes mellitus with diabetic polyneuropathy (Acute) Mixed anxiety depressive disorder (Acute) quetiapine (From Seroquel) Allergy (Intermediate, Unverified 05/09/25 01:01) Nausea amoxicillin (From Augmentin) Allergy (Unverified 05/09/25 01:01) Contraindicated clavulanic acid (From Augmentin) Allergy (Unverified 05/09/25 01:01) Contraindicated Penicillins Allergy (Unverified 05/09/25 01:01) Contraindicated Sulfa (Sulfonamide Antibiotics) Allergy (Unverified 05/09/25 01:01) Contraindicated exenatide (From [place]) Adverse Reaction (Intermediate, Unverified 05/09/25 01:01) diarrhea metformin Adverse Reaction (Intermediate, Unverified 05/09/25 01:01) diarrhea amitriptyline Adverse Reaction (Unverified 05/09/25 01:01) made my face go numb amoxicillin trihydrate (From Augmentin) Adverse Reaction (Unverified 05/09/25 01:01) acute kidney failure NSAIDS (Non-Steroidal Anti-Inflamma Adverse Reaction (Unverified 05/09/25 01:01) stage III kidney disease potassium clavulanate (From Augmentin) Adverse Reaction (Unverified 05/09/25 01:01) acute kidney failure Resuscitation Status Full Code Height 5 ft 1 in Weight 84.368 kg Pharmacy Admission Review Renal Dosing Renal Dosing: CrCl=37ml/min. no meds need adjustment today. BUN 29 mg/dL (7-18) H 05/09/25 12:00 Creatinine 1.5 mg/dL (0.55-1.02) H 05/09/25 12:00 Anticoagulation Anticoagulation: Aspirin/plavix for h/o CAD. Hgb 10.4 g/dL (11.2-15.7) L 05/08/25 21:24 Hct 31.1 % (36.0-46.0) L 05/08/25 21:24 Plt Count 294 10^3/uL (130-400) 05/08/25 21:24 INR 0.9 (0.9-1.1) 05/08/25 21:24 Creatinine 1.5 mg/dL (0.55-1.02) H 05/09/25 12:00 DVT Prophylaxis: Reviewed (pt is ambulatory. ) Opiate Usage Evaluate Pain Scale/Pains Meds: Reviewed Scheduled Bowel Reg ordered if on Opiates?: No Relevant Labs Relevant Labs: Sodium 131 mmol/L (136-145) L 05/09/25 12:00 Potassium 4.3 mmol/L (3.5-5.1) 05/09/25 12:00 Chloride 98 mmol/L (98-107) 05/09/25 12:00 Magnesium 2.1 mg/dL (1.8-2.4) 05/08/25 21:24 Electrolytes, C-Reactive P, ESR: Reviewed (no intervention today) DM Control DM Control: Reviewed Insulin Dosing, Diabetic Medication: h/o type 1 diabetic; on insulin aspart Cardiac Review Cardiac Review: Troponin I 7 ng/L (<or=51) 05/09/25 00:00 BP, HR, EF%: Reviewed QTc Review QTc: Reviewed List meds needing interventions: [id number] Home Meds Home Med List reviewed: Intervened Relevent Home Meds Not ordered & why?: ordered dexlansoprazole (home med)- recommended to d/c because non-formulary and pt is on pantoprazole inpatient Current Meds Current Medication Order Review: Reviewed
--- NOTE | 2025-05-09 18:50 | W.PM.PROGNOT ---
Date of Service Date of service: 05/09/25 Time of Service: 18:50 Assessment and Plan Assessment and plan (1) Chest pain of uncertain etiology: Status: Acute Assessment and plan: Chest pain with history of CAD with stents Negative troponins, EKG unremarkable, again reassuring 05/09 with episode of chest pain MPI/stress test done 05/09, no read, with some recurrent pain will continue to observe overnight on telemetry (2) ISA (acute kidney injury): Status: Resolved Assessment and plan: Looking back her numbers have all be within range of known baseline stage 3b CKD (3) Coronary artery disease: Status: Chronic Assessment and plan: Continue home clopidogrel (4) Type 1 diabetes mellitus with diabetic polyneuropathy: Status: Acute Assessment and plan: Apparently not on any long-acting insulin A1C 6.4 in February, patient states has been much better controlled since starting terzepatide (evedence for improved outcomes in type 1 DM with obestity) continue premeal insulin and ISS (5) GERD (gastroesophageal reflux disease): Status: Chronic Assessment and plan: continue PPI (6) Mixed anxiety depressive disorder: Status: Acute Assessment and plan: Continue home regimen (7) DVT prophylaxis: Status: Resolved Assessment and plan: start enoxaparin Subjective Subjective Patient reports: tolerating a regular diet; denies vomiting or fever Interval history since last seen: Events: Had stress/MPI, no report Still polyuria, dysuria. Has had for weeks, did not get better after cipro x 5 days prior to admission, culture tita/GNR Had episodes of same upper left sided chest pain this morning, lasting 1-3 minutes, a/w SOB. no diaphoresis, nausea, dizziness, or palpitations. No pain since having stress test. She did have fecal urgency and accident after getting infusion, but no diarrhea since. Ate dinner. Exam Narrative Exam Narrative: General: Alert and oriented, in no distress HEENT: Normocephalic, atraumatic CV: RRR with pulse in 90s, no murmur no distal edema Resp: CTAB, normal effort Abd: soft, NTND MSK: no chest wall tenderness Objective Last Vital Signs Temp 36.8 C 05/09/25 15:25 Pulse 97 H 05/09/25 15:25 Resp 18 05/09/25 15:25 BP 106/61 05/09/25 15:25 Pulse Ox 97 05/09/25 15:25 Laboratory Results - last 24 hr 05/08/25 05/08/25 05/09/25 21:24 22:15 00:00 WBC 9.38 RBC 3.29 L Hgb 10.4 L Hct 31.1 L MCV 95 MCH 31.6 MCHC 33.4 RDW 13.2 Plt Count 294 MPV 9.3 Immature Gran % 0.9 Neutrophils % 64.0 Lymphocytes % 20.6 Monocytes % 7.6 Eosinophils % 6.3 Basophils % 0.6 Nucleated RBC % 0.0 Absolute Neutrophils 6.01 Absolute Lymphocytes 1.93 Absolute Monocytes 0.71 Absolute Eosinophils 0.59 Absolute Basophils 0.06 PT 9.4 INR 0.9 APTT 23.7 Sodium 132 L Potassium 4.4 Chloride 97 L Carbon Dioxide 26.8 Anion Gap 8.2 BUN 26 H Creatinine 1.7 H Est GFR (CKD-EPI 2020) 33.28 Glucose 154 H Calcium 9.2 Magnesium 2.1 Total Bilirubin 0.6 AST 17 ALT 18 Alkaline Phosphatase 98 Troponin I 7 7 7 Total Protein 7.1 Albumin 3.3 L Lipase 14 Urine Color [place] Urine Clarity Clear Urine pH Not Applicable Ur Specific [place] 1.014 Urine Protein Color Interference Urine Ketones Color Interference Urine Blood Color Interference Urine Nitrite Color Interference Urine Bilirubin Color Interference Urine Urobilinogen Color Interference Ur Leukocyte Esterase Color Interference Urine RBC 0-2 Urine WBC 20-50 H Ur Epithelial Cells Moderate Urine Crystals Negative Urine Bacteria Few Urine Casts Negative Urine Mucus Negative Ur Culture Indicated? No/Sq. Contamination Urine Glucose Color Interference 05/09/25 12:00 WBC RBC Hgb Hct MCV MCH MCHC RDW Plt Count MPV Immature Gran % Neutrophils % Lymphocytes % Monocytes % Eosinophils % Basophils % Nucleated RBC % Absolute Neutrophils Absolute Lymphocytes Absolute Monocytes Absolute Eosinophils Absolute Basophils PT INR APTT Sodium 131 L Potassium 4.3 Chloride 98 Carbon Dioxide 24.7 Anion Gap 8.3 BUN 29 H Creatinine 1.5 H Est GFR (CKD-EPI 2020) 38.67 Glucose 126 H Calcium 9.1 Magnesium Total Bilirubin AST ALT Alkaline Phosphatase Troponin I Total Protein Albumin Lipase Urine Color Urine Clarity Urine pH Ur Specific [place] Urine Protein Urine Ketones Urine Blood Urine Nitrite Urine Bilirubin Urine Urobilinogen Ur Leukocyte Esterase Urine RBC Urine WBC Ur Epithelial Cells Urine Crystals Urine Bacteria Urine Casts Urine Mucus Ur Culture Indicated? Urine Glucose Time Spent with Patient Time Spent with Patient: 35-49 minutes Time was spent: preparing to see the patient(eg.review tests), obtaining and/or reviewing separately otained hiistory, ordering medications,tests, procedures, referring, communicating with other health medicare specialist, indepentently interpreting results, counseling the patient and care coordination
[2025-05-09] MEDS: DULoxetine 30 MG CAP PO (20:52)
[2025-05-09] MEDS: Magnesium Oxide 400 MG TAB PO (20:52)
[2025-05-09] MEDS: Atorvastatin 40 MG TAB PO (20:52)
[2025-05-09] MEDS: LORazepam 0.5 MG TAB PO (23:13)
[2025-05-10] MEDS: HYDROcodone 5/Acetaminophen 325 TAB PO ×2 (05:53→16:12)
[2025-05-10] MEDS: Cyclobenzaprine 10 MG TAB PO ×2 (05:53→16:12)
[2025-05-10 07:21] LABS: Anion Gap 8.5 mmol/L (3-11); BUN 30 mg/dL (7-18); CO2 25.5 mmol/L (21.0-32.0); Calcium 9.4 mg/dL (8.5-10.1); Chloride 99 mmol/L (98-107); Estimated GFR 38.67 (mL/min/1.73m2); Glucose 95 mg/dL (74-106); Potassium 4.1 mmol/L (3.5-5.1); Sodium 133 mmol/L (136-145)
[2025-05-10 08:09] VITALS: BP 101/89; PULSE 90; RESP 16; TEMP 36.6; O2SAT 96
[2025-05-10] MEDS: Pantoprazole 40 MG TABCR PO (08:14)
[2025-05-10] MEDS: Normal Saline Flush 10 ML SYR IVP (08:15)
[2025-05-10] MEDS: Enoxaparin 40 MG/0.4 ML SYR SC (08:15)
[2025-05-10] MEDS: Aspirin 81 MG CHEW 243 MG PO (08:16)
[2025-05-10] MEDS: Clopidogrel 75 MG TAB PO (08:17)
[2025-05-10] MEDS: buPROPion-CR 150 MG TABCR PO (08:17)
[2025-05-10] MEDS: Magnesium Oxide 400 MG TAB PO (08:17)
[2025-05-10] MEDS: DULoxetine 30 MG CAP 60 MG PO (08:18)
[2025-05-10] MEDS: Atorvastatin 40 MG TAB PO (08:19)
[2025-05-10 08:42] VITALS: BP 120/63; PULSE 91; RESP 16; TEMP 35.8; O2SAT 98
--- NOTE | 2025-05-10 09:30 | CMDISCH_ITS ---
Date of service: 05/10/25 Time of Service: 09:30 LACE Index Scoring Tool Questions: Length of Stay (in days): 2 Was the patient admitted via the E.D.?: Yes Comorbidities: Previous M.I., Diabetes w/o Complication, Chronic Pulmonary Disease and Liver or Renal Disease E.D. Visits: 3 Answers: Total Score: 13 Risk of Readmission: High Risk Care Management Discharge Plan Reason for Hospitalization: chest pain Discharge Plan: Nimisha will be discharged home with a resumption of her caregiver services. She will follow up with her PCP and plan of care as prescribed and transport via private vehicle with family. Patient/Family Education Needs: Review of discharge instructions, limitations, follow up plan and discuss Ask Me Three SDOH Health Related Social Needs: Health related social needs transpo insecurity lonely/ isolated Health related social needs details dose not want assi stance at this time Health related social needs details: dose not want assistance at this time
[2025-05-10 11:08] VITALS: BP 110/65; PULSE 105; RESP 16; TEMP 36.6; O2SAT 99
[2025-05-10] MEDS: cefTRIAXone 1 GM/50 ML BAG IVPB (12:10)
[2025-05-10 12:32] LABS: Glucose Negative (Negative)
[2025-05-10 12:39] LABS: C & S Indicated? Yes; WBC 20-50 HPF (0-5)
[2025-05-10 14:36] VITALS: BP 114/71; PULSE 98; RESP 20; TEMP 36.1; O2SAT 96
[2025-05-10 16:54] LABS: Abs Immature Grans 0.06 10^3/uL (0.0-0.06); HCT 28.5 % (36.0-46.0); HGB 9.4 g/dL (11.2-15.7); Immature Grans % 1.1 %; MCH 31.3 pg (27.0-33.0); MCHC 33.0 % (32.0-36.0); MCV 95 fL (80-95); MPV 9.0 fL (8.0-11.0); Platelet Count 246 10^3/uL (130-400); RBC 3.00 10^6/uL (3.93-5.22); RDW 13.5 % (11.7-14.6); RDW-SD 46.4 fL; WBC 5.46 10^3/uL (4.4-10.8)
--- NOTE | 2025-05-10 17:13 | DSE_ITS ---
Date of service: 05/10/25 Time of Service: 17:13 DS: Diagnosis Discharge Diagnosis (1) Chest pain of uncertain etiology: Status: Acute (2) ISA (acute kidney injury): Status: Resolved (3) Coronary artery disease: Status: Chronic (4) Type 1 diabetes mellitus with diabetic polyneuropathy: Status: Acute (5) GERD (gastroesophageal reflux disease): Status: Chronic (6) Mixed anxiety depressive disorder: Status: Acute (7) DVT prophylaxis: Status: Resolved Discharge Plan Disposition Patient Disposition: Home Condition: Stable Discharge Details Reason For Visit: Angina Admit Date/Time: 05/08/25 22:38 Admit Provider: Andrew Fermin Attending Provider: Andrew Fermin [facility] Course: 64 yo female with history of CAD with remote stenting, COPD, IDDM, CKD3, GERD, and chronic pain and anxiety on opioids and benzodiazepines who presented with chest pain. Pain was left sided, a/w SOB, lasting minutes. EKGs and troponins were reassuring, even during episodes. She did a stress test with MPI that was normal with no abnormal perfusion. Her chest pain did not recur in the 24+ hours prior to discharge. She did have ongoing dysuria despite recent course of 5 days of ciprofloxacin. She had some back pain she also associated with a urine infection. Initial u/a obsurred by pyridium, but repeat 05/10 was consistent with UTI. She tolerated ceftriaxone (only some fleeting nausea possibly related) and was discharged with 6 more days of cefixime orally given her CKD, allergies, possible kidney involvement with back pain, and failure of outpatient ciprofloxacin other antibiotic options were limited. Repeat CBC showed normal WBC the day of discharge. She has some bladder spasms but stated her [employer] works for that. Of note she is on aspirin and clopidogrel chronically, which is not typical >1 year after stenting. This was deferred to PCP, but stopping one of the two should be considered. Clopidogrel monotherapy may actually be lower risk. She states she has type 2 DM but we have type 1 on her list. She is on tirzepatide, but this has been shown safe and effective for obese patients with type 1 DM anyways. She has an anemia a/w CKD. Hgb was 10.4 on admission and 9.4 on day of discharge, with no bleeding noted other than microscopic in urine. Recommendations for Follow Up Recommended tests to be ordered by follow up provider: Follow up BMP, CBC in 1 week, check response to treatment of urine infection, confirm sensitivities of urine. Home Meds and New Rx's Prescriptions: New cefixime [Suprax] 400 mg capsule 400 mg PO DAILY 6 Days Qty: 6 0RF Rx Instructions: patient tolerated ceftriaxone Continued nystatin 100,000 unit/mL Suspension 5 ml PO QID PRN PRN naloxone [Narcan] 4 mg/actuation [place],Non-Aerosol 4 mg INTRANASAL PRN PRN benzonatate 100 mg capsule 100 mg PO TID PRN (Reason: cough) Qty: 14 0RF (DME) rolling walker with seat Qty: 1 0RF Rx Instructions: As directed with ambulation insulin aspart U-100 [Novolog FlexPen U-100 Insulin] 300 UNITS/3 ML insulin pen 2 - 20 units Sub-Q 0800,1200,1700 Rx Instructions: Dispense one pen see sliding scale bupropion HCl 150 mg tablet sustained-release 12 hr 1 tab PO BID Patient Comments: TAKE ONE TABLET BY MOUTH TWICE A DAY lorazepam 0.5 mg tablet 0.5 mg PO BID PRN Patient Comments: TAKE ONE TABLET BY MOUTH EVERY 6 HOURS NEEDED FOR ANXIETY dexlansoprazole [Dexilant] 30 mg capsule,biphase delayed releas 30 mg PO DAILY Patient Comments: pt takes in the morning isosorbide dinitrate 30 mg tablet 30 mg PO DAILY Patient Comments: TAKE ONE TABLET BY MOUTH EVERY DAY duloxetine 30 mg capsule,delayed release(DR/EC) 30 mg PO HS Patient Comments: TAKE ONE CAPSULE BY MOUTH EVERY DAY Mounjaro 10 mg/0.5 mL pen injector 10 mg SUBCUT .weekly Patient Comments: INJECT 10MG SUBCUTANEOUSLY EVERY WEEK, ROTATE INJECTION SITES nitroglycerin [Nitrostat] 0.4 MG tablet, sublingual 0.4 mg Sublingual PRN PRN cyclobenzaprine 10 mg tablet 10 mg PO Q8H PRN PRN hydrocodone-acetaminophen 5-325 mg tablet 1 tab PO Q8H PRN PRN Patient Comments: TAKE ONE TABLET BY MOUTH EVERY 6 TO 8 HOURS NEEDED aspirin 81 mg tablet,delayed release (DR/EC) 81 mg PO DAILY Patient Comments: TAKE ONE TABLET BY MOUTH EVERY DAY fluticasone propionate 50 mcg/actuation spray,suspension 1 spray INTRANASAL DAILY Patient Comments: INSTILL 2 SPRAYS NASALLY DAILY duloxetine 60 mg capsule,delayed release(DR/EC) 60 mg PO .COMPLEX Patient Comments: 60mg am 30mg HS Rx Instructions: 60mg daily in am. 30mg HS dexlansoprazole [Dexilant] 60 mg capsule,biphase delayed releas 60 mg PO DAILY Patient Comments: takes at night docusate sodium 250 mg Capsule 250 mg PO HS PRN insulin glargine [Basaglar KwikPen U-100 Insulin] 100 unit/mL (3 mL) insulin pen 30 unit SUBCUT QPM Patient Comments: INJECT 60 UNITS SUBCUTANEOUSLY ONCE DAILY (30 UNITS EVERY MORNING AND 30 UNITS QPM) cholecalciferol (vitamin D3) [Vitamin D3] 25 mcg (1,000 unit) capsule 1,000 unit PO DAILY Patient Comments: no longer taking 05/19/23 MG lidocaine [Lidoderm] 5 % adhesive patch,medicated 1 patch topical DAILY PRNQty: 15 0RF Rx Instructions: leave on most painful area for up to 12 hrs atorvastatin 80 mg tablet 40 mg PO BID Patient Comments: TAKE ONE TABLET AB BY MOUTH DAILY (cuts tab in half, takes morning and night to reduce side effects) clopidogrel 75 mg tablet 75 mg PO DAILY Patient Comments: TAKE ONE TABLET AB BY MOUTH DAILY magnesium oxide 400 mg (241.3 mg magnesium) tablet 400 mg PO BID lisinopril 2.5 mg tablet 2.5 mg PO DAILY Patient Comments: pt states that she has been taking 0.5 of 2.5mg pill (1.25mg) due to orthostatic reaction, PCP notified but order has not been changed Discontinued nystatin 100,000 unit/mL suspension 500,000 unit buccal QID Qty: 480 0RF Rx Instructions: administer 1/2 of dose in each side of the mouth, hold in mouth as long as possible, then spit omeprazole 40 mg capsule,delayed release(DR/EC) 40 mg PO DAILY Patient Comments: TAKE ONE CAPSULE BY MOUTH EVERY DAY phenazopyridine [Pyridium] 200 mg tablet 200 mg PO TID PRNQty: 6 0RF Patient Comments: doesn't have but still taking Discharge Instructions Instructions: Chest Pain (DC), Urinary Tract Infection, Adult ED Additional Instructions: you have 6 more days of antibiotics for your urine infection, starting tomorrow 05/11 Your heart tests looked good. You can take the nitroglycerin if you need it. Come back to the ED if the pain returns worse. Activity:: Activity as Tolerated Equipment/Supplies:: No Equipment Needed Diet:: Carb Counting Discharge Orders Discharge Orders: Discharge Order (Routine); Ordered 05/10/25 Ordered By: Jacob Hill DS: Summary Time Spent with Patient providing and/or coordinating discharge services: Greater than 30 minutes Status at Discharge Functional status at discharge: uses cane/walker Overall status at discharge: patient is progressing back to baseline Mental Status: mental status grossly normal Speech and Movement: speech and movement normal Mood: congruent mood Affect: normal affect Quality:SDOH Health Related Social Needs: Health related social needs transpo insecurity lonely/ isolated Health related social needs details dose not want assi stance at this time Health related social needs details: dose not want assistance at this time Exam Narrative Exam Narrative: General: Alert and oriented, in no distress, appeared tired in afternoon but more alert after getting up and walking, stable on her feet. HEENT: Normocephalic, atraumatic CV: RRR with pulse in 90s, no murmur no distal edema Resp: CTAB, normal effort Abd: soft, NTND Psych Mental Status: mental status grossly normal Speech and Movement: speech and movement normal Mood: congruent mood Affect: normal affect DS: Data Vitals/I&O Vitals and I&O: Vital Signs Temperature 36.1 C L 05/10/25 14:36 Temperature Source Temporal Artery Scan 05/10/25 14:36 Pulse 98 H 05/10/25 14:36 Pulse Rhythm Regular 05/09/25 07:44 Pulse 88 05/09/25 07:20 Respiratory Rate 20 05/10/25 14:36 Respiratory Effort Normal 05/09/25 07:44 Respiratory Depth Normal 05/09/25 07:44 Respiratory Pattern Normal 05/09/25 07:44 Blood Pressure 114/71 05/10/25 14:36 Blood Pressure Mean 85 05/10/25 14:36 Blood Pressure Position Supine 05/08/25 21:03 Pulse Oximetry 96 05/10/25 14:36 Oxygen Delivery Method Room Air 05/10/25 14:36 Oxygen Flow Rate 0 05/10/25 14:36 Pain Level 10 05/10/25 16:12 Intake & Output 09/15/25 09/16/25 09/16/25 23:59 11:59 23:59 Intake Total 20 / 50 240 / 240 Output Total 150 / 150 300 / 300 Balance -130 / -100 -60 / -60 Intake: IV 20 / 20 Oral 240 / 240 Output: Urine 150 / 150 300 / 300 Other: Urine Color Zanoni Zanoni Urine Appearance Clear Cloudy Urine Odor Normal Data Completed and Pending Labs on day of discharge: Labs from last 24 hours 05/10/25 05/10/25 05/10/25 16:48 11:15 06:20 WBC 5.46 RBC 3.00 L Hgb 9.4 L Hct 28.5 L MCV 95 MCH 31.3 MCHC 33.0 RDW 13.5 Plt Count 246 MPV 9.0 Immature Gran % 1.1 Neutrophils % 56.8 Lymphocytes % 24.7 Monocytes % 8.1 Eosinophils % 8.4 Basophils % 0.9 Nucleated RBC % 0.0 Absolute Neutrophils 3.10 Absolute Lymphocytes 1.35 Absolute Monocytes 0.44 Absolute Eosinophils 0.46 Absolute Basophils 0.05 Sodium 133 L Potassium 4.1 Chloride 99 Carbon Dioxide 25.5 Anion Gap 8.5 BUN 30 H Creatinine 1.5 H Est GFR (CKD-EPI 2020) 38.67 Glucose 95 Calcium 9.4 Urine Color Yellow Urine Clarity Sl Cloudy Urine pH 5.5 Ur Specific [place] 1.010 Urine Protein 30 H Urine Ketones Trace H Urine Blood Trace-intact H Urine Nitrite Positive H Urine Bilirubin Small H Urine Urobilinogen 1.0 H Ur Leukocyte Esterase Large H Urine RBC 3-5 H Urine WBC 20-50 H Ur Epithelial Cells Few Urine Crystals Negative Urine Bacteria Few Urine Casts Negative Urine Mucus Negative Ur Culture Indicated? Yes Urine Glucose Negative 05/10/25 11:15 Urine - Reflex from Ua Urine Culture - Pending Preliminary micro results at discharge 05/10/25 11:15 Urine - Reflex from Ua Urine Culture - Pending [facility] All Active Problems (Updated 05/08/25 @ 22:39 by Branden Sequeira MD) Chest pain of uncertain etiology (Acute) Hyperglycemia (Acute) Acute adrenal insufficiency (Acute) Urinary tract infection (Acute) Headache (Acute) URI (upper respiratory infection) (Acute) Hypomagnesemia (Acute) Atypical chest pain (Acute) COVID-19 (Acute) Mixed anxiety depressive disorder (Acute) COPD (chronic obstructive pulmonary disease) (Chronic) Chronic kidney disease (Chronic) GERD (gastroesophageal reflux disease) (Chronic) Insomnia (Acute) Hypertension (Chronic) Coronary artery disease (Chronic) Primary osteoarthritis of both first carpometacarpal joints (Acute 12/22/17) Type 1 diabetes mellitus with diabetic polyneuropathy (Acute) 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 (Acute) CAD (coronary atherosclerotic disease) (Acute) Chest pain (Acute) Medical History Fibromyalgia Panic disorder Mental disorder Pernicious anemia Proliferative retinopathy due to DM 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 Epigastric pain Diarrhea Wheezing Dupuytren's disease of palm Low back pain CKD stage 3 due to type 2 diabetes mellitus Acute exacerbation of chronic obstructive airways disease Allergic rhinitis 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 Insomnia Surgical History H/O lumpectomy Hx of tubal ligation section x2. No complications. Coronary Stent Cholecystectomy Appendectomy Family History Brother Diabetes Hypertension Heart disease Stroke Obesity Chronic headaches Arthritis Brother Arthritis Chronic headaches Diabetes Heart disease Hypertension Obesity Stroke Father Heart disease Stroke Hypertension Chronic headaches Sister Diabetes Obesity Osteoporosis Daughter Migraine Obesity Brother Arthritis Diabetes Chronic headaches Hypertension Obesity Stroke Mother Asthma Arthritis Diabetes Obesity Stroke Glaucoma Social History Smoking/Tobacco Use Status: Former Tobacco Use Quit Date: 04/13/19 Pack-years: 45 Tobacco: How many years used: 45 Quit status: considering quitting Smoking risk assessment performed?: Yes Alcohol Intake: never Drug use: Never Substance use type: does not use Details: Quit smoking 6 months ago. Household members: friend(s) Housing: apartment Number of Children: 3 number of grandchildren: 14 current occupation: none What is your relationship status?: Panel score (0-1 are the most socially isolated patients): 0 What type of physical activity do you participate in: none Do you feel safe at home: Yes Do you feel safe in your relationship?: Yes Time Spent with Patient Time Spent with Patient: 45-69 minutes Time was spent: preparing to see the patient(eg.review tests), obtaining and/or reviewing separately otained hiistory, ordering medications,tests, procedures, referring, communicating with other health skin care technician, indepentently interpreting results, counseling the patient and care coordination
== END 2025-05-10 18:15 | disposition home or self-care (01) ==
LOC: ER 22:39 → EDHOLD 05-09 00:15 → MS 05-09 07:34
PROVIDERS: Admitting Provider Family Medicine; Emergency Provider Emergency Medicine; PCP Nurse Practitioner Family; Responsible Provider Family Medicine; Visit Provider Family Medicine
DX: R07.89 Other chest pain (principal); N17.9 Acute kidney failure, unspecified; N39.0 Urinary tract infection, site not specified; E87.1 Hypo-osmolality and hyponatremia; E10.42 Type 1 diabetes mellitus with diabetic polyneuropathy; K21.9 Gastro-esophageal reflux disease without esophagitis; F41.8 Other specified anxiety disorders; R00.0 Tachycardia, unspecified; E10.65 Type 1 diabetes mellitus with hyperglycemia; E83.42 Hypomagnesemia; J44.9 Chronic obstructive pulmonary disease, unspecified; I12.9 Hypertensive chronic kidney disease with stage 1 through stage 4 chronic kidney disease, or unspecified chronic kidney disease; N18.30 Chronic kidney disease, stage 3 unspecified; G25.81 Restless legs syndrome; E78.5 Hyperlipidemia, unspecified; I25.10 Atherosclerotic heart disease of native coronary artery without angina pectoris; G89.29 Other chronic pain; D63.1 Anemia in chronic kidney disease; E10.22 Type 1 diabetes mellitus with diabetic chronic kidney disease; E10.319 Type 1 diabetes mellitus with unspecified diabetic 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 edema; E66.9 Obesity, unspecified; Z95.5 Presence of coronary angioplasty implant and graft; Z87.891 Personal history of nicotine dependence; Z79.899 Other long term (current) drug therapy
CPT/HCPCS: 00123; 36415; 78452; 80048; 80053; 83690; 93005; 96365; 96372; 99285; J1650; 71045; 81003; 81015; 83735; 84484; 85025; 85610; 85730; 87086; 93010; 93017; 99222; 99232; 99239; G0378; J0696; J1815

== ENCOUNTER 2025-06-06 19:25 | Inpatient (IN) | payer MEDICARE, MEDICAID, SELFPAY ==
[2025-06-06] VITALS (36 sets, daily range): BP systolic 98–115; BP diastolic 46–69; PULSE 72–99; RESP 11–34; TEMP 36.6; O2SAT 94–99
--- NOTE | 2025-06-06 20:00 | DI.CT_ITS ---
Exam(s) CT HEAD CERVICAL SPINE WO EXAM: CT HEAD CERVICAL SPINE WO CLINICAL HISTORY: fall on AC, [place]. TECHNIQUE: Imaging Protocol: Axial computed tomography images with coronal and sagittal reformatted images were created and reviewed COMPARISON: CT CT HEAD WO from 02/05/2022 FINDINGS: Head CT Ventricles and Extra axial spaces: Normal in size and morphology for the patient's age. Hemorrhage: None. Cerebral parenchyma: No evidence of mass or acute infarct. Mild microvascular changes of the white matter. Mild atrophy. Midline shift: None. Brainstem/Cerebellum: Normal. Calvarium: Normal. Visualized Paranasal sinuses/Mastoids: Clear. Soft tissues: Unremarkable. Cervical Spine CT BONES: Vertebral body heights are maintained. Alignment is normal. There is no evidence of acute fracture. Mild degenerative disc changes and facet degenerative changes are seen . SOFT TISSUES: No paraspinal hematoma. The airway appears intact. No pneumothorax is seen at the lung apices. IMPRESSION: Head CT: No acute abnormality. C-spine CT: Mild degenerative changes, no acute abnormality. The preliminary [facility] report was reviewed. RADIATION DOSE DELIVERED: 1,103.08mGy.cm Total DLP DATA REPOSITORY: All CT scans at this facility are submitted to the National Radiology Data Registry (NRDR) Dose Index Registry (DIR) with the [employer] ([employer]). RADIATION OPTIMIZATION: All CT scans at this facility use at least one of these dose optimization techniques: automated exposure control; mA and/or kV adjustment per patient size (includes targeted exams where dose is matched to clinical indication); or iterative reconstruction.
--- NOTE | 2025-06-06 20:00 | DI.CT_ITS ---
Exam(s) CT CHEST/ABD/PEL W EXAM: CT CHEST/ABD/PEL W CLINICAL HISTORY: fall on AC, severe L sided pain. TECHNIQUE: Imaging Protocol: Axial computed tomography images with coronal and sagittal reformatted images were created and reviewed. Computer aided detection (CAD) was utilized. CONTRAST MATERIAL: Intravenous: Omnipaque 350 Contrast volume:75 mL Oral: no COMPARISON: CT CT CHEST PE CTA from 06/25/2023 CR,XR XR PORTABLE CHEST AP from 05/08/2025 FINDINGS: CHEST: Pulmonary parenchyma: No consolidation. No dominant measurable mass. Diffuse bilateral interstitial thickening mild bilateral upper lobe ground-glass opacities. Tracheobronchial tree: No bronchiectasis. No mucous plugging.No bronchial wall thickening. Pleura: No effusion or pneumothorax. Mediastinum: Small mediastinal lymph nodes, likely reactive. Pulmonary arteries: No visible emboli. Cardiovascular: Aberrant right subclavian artery. Normal heart size. Coronary artery calcifications/stents are present. No pericardial effusion. Thoracic aorta non-dilated. Bones: posterior left 11th rib fracture. No lytic or blastic lesions. No compression fractures. Soft tissues: Unremarkable. ABDOMEN and PELVIS: Liver: Normal density. No suspicious mass. Gallbladder and biliary tract: Cholecystectomy no biliary dilatation. Pancreas: Normal density, no abnormal calcifications or inflammatory process. Spleen: Normal. Kidneys: Normal size, contour and axis. No radiodense stones. No obstructive uropathy. No suspicious masses seen. Adrenal glands: No masses seen. Aorta: Abdominal portion non-dilated. Lymph nodes: Within normal limits. Soft tissues: Unremarkable. Bladder: Unremarkable. Bowel: No obstruction or bowel wall thickening. Moderate quantity of stool. Appendix not visualized. Peritoneal cavity: No ascites. No focal collection. No mesenteric inflammatory response. No free air. Bones: Unremarkable for age. Reproductive organs: Unremarkable for age. IMPRESSION: Left 11th rib fracture. No evidence of pneumothorax. Increased interstitial markings which appear chronic. Mild upper lobe ground- glass opacities could indicate superimposed pneumonitis. No acute abnormality in the abdomen or pelvis. Findings were called to Dr. Long of the emergency department. The preliminary [facility] report was reviewed. RADIATION DOSE DELIVERED: 1,496.57mGy.cm Total DLP DATA REPOSITORY: All CT scans at this facility are submitted to the National Radiology Data Registry (NRDR) Dose Index Registry (DIR) with the [employer] (ACR). RADIATION OPTIMIZATION: All CT scans at this facility use at least one of these dose optimization techniques: automated exposure control; mA and/or kV adjustment per patient size (includes targeted exams where dose is matched to clinical indication); or iterative reconstruction.
[2025-06-06 20:42] LABS: Abs Immature Grans 0.05 10^3/uL (0.0-0.06); HCT 34.2 % (36.0-46.0); HGB 11.0 g/dL (11.2-15.7); Immature Grans % 0.6 %; MCH 31.4 pg (27.0-33.0); MCHC 32.2 % (32.0-36.0); MCV 98 fL (80-95); MPV 9.3 fL (8.0-11.0); Platelet Count 270 10^3/uL (130-400); RBC 3.50 10^6/uL (3.93-5.22); RDW 13.8 % (11.7-14.6); RDW-SD 49.4 fL; WBC 8.44 10^3/uL (4.4-10.8)
[2025-06-06 20:49] LABS: Lipase 14 U/L (<78)
[2025-06-06 20:52] LABS: INR 0.9 (0.9-1.1); PTT Activated 24.1 sec (20.6-30.2); Prothrombin Time 9.4 sec (9.1-11.1)
[2025-06-06 20:55] LABS: ALT 28 U/L (14-59); AST 13 U/L (15-37); Albumin 3.6 g/dL (3.4-5.0); Alkaline Phosphatase 112 U/L (46-116); Anion Gap 8.6 mmol/L (3-11); BUN 42 mg/dL (7-18); Bilirubin, Total 0.3 mg/dL (0.2-1.0); CO2 29.4 mmol/L (21.0-32.0); Calcium 9.5 mg/dL (8.5-10.1); Chloride 100 mmol/L (98-107); Estimated GFR 28.94 (mL/min/1.73m2); Glucose 107 mg/dL (74-106); Magnesium 2.3 mg/dL (1.8-2.4); Potassium 3.9 mmol/L (3.5-5.1); Sodium 138 mmol/L (136-145); Total Protein 7.4 g/dL (6.4-8.2)
[2025-06-06] MEDS: Omnipaque 350 MG/ML 100 ML BTL IJ (20:57)
[2025-06-06] MEDS: Normal Saline - Diluent 50 ML VIAL IJ (20:58)
[2025-06-06] MEDS: Normal Saline Flush 10 ML SYR IVP (20:58)
--- NOTE | 2025-06-06 21:17 | W.ED.GENAD ---
Discharge Plan Disposition Patient Disposition: Admit to [facility] Condition: Serious Discharge Details Clinical Impression: Pain in rib, Fall, Anticoagulated Primary Care Provider: Jeny Almonte ED Provider: Diamond Silva Home Meds and New Rx's Prescriptions: No Action nystatin 100,000 unit/mL Suspension 5 ml PO QID PRN PRN naloxone [Narcan] 4 mg/actuation [place],Non-Aerosol 4 mg INTRANASAL PRN PRN benzonatate 100 mg capsule 100 mg PO TID PRN (Reason: cough) Qty: 14 0RF (DME) rolling walker with seat Qty: 1 0RF Rx Instructions: As directed with ambulation insulin aspart U-100 [Novolog FlexPen U-100 Insulin] 300 UNITS/3 ML insulin pen 2 - 20 units Sub-Q 0800,1200,1700 Rx Instructions: Dispense one pen see sliding scale bupropion HCl 150 mg tablet sustained-release 12 hr 1 tab PO BID Patient Comments: TAKE ONE TABLET BY MOUTH TWICE A DAY lorazepam 0.5 mg tablet 0.5 mg PO BID PRN Patient Comments: TAKE ONE TABLET BY MOUTH EVERY 6 HOURS NEEDED FOR ANXIETY dexlansoprazole [Dexilant] 30 mg capsule,biphase delayed releas 30 mg PO DAILY Patient Comments: pt takes in the morning isosorbide dinitrate 30 mg tablet 30 mg PO DAILY Patient Comments: TAKE ONE TABLET BY MOUTH EVERY DAY duloxetine 30 mg capsule,delayed release(DR/EC) 30 mg PO HS Patient Comments: TAKE ONE CAPSULE BY MOUTH EVERY DAY Mounjaro 10 mg/0.5 mL pen injector 10 mg SUBCUT .weekly Patient Comments: INJECT 10MG SUBCUTANEOUSLY EVERY WEEK, ROTATE INJECTION SITES nitroglycerin [Nitrostat] 0.4 MG tablet, sublingual 0.4 mg Sublingual PRN PRN cyclobenzaprine 10 mg tablet 10 mg PO Q8H PRN PRN hydrocodone-acetaminophen 5-325 mg tablet 1 tab PO Q8H PRN PRN Patient Comments: TAKE ONE TABLET BY MOUTH EVERY 6 TO 8 HOURS NEEDED aspirin 81 mg tablet,delayed release (DR/EC) 81 mg PO DAILY Patient Comments: TAKE ONE TABLET BY MOUTH EVERY DAY fluticasone propionate 50 mcg/actuation spray,suspension 1 spray INTRANASAL DAILY Patient Comments: INSTILL 2 SPRAYS NASALLY DAILY duloxetine 60 mg capsule,delayed release(DR/EC) 60 mg PO .COMPLEX Patient Comments: 60mg am 30mg HS Rx Instructions: 60mg daily in am. 30mg HS dexlansoprazole [Dexilant] 60 mg capsule,biphase delayed releas 60 mg PO DAILY Patient Comments: takes at night docusate sodium 250 mg Capsule 250 mg PO HS PRN insulin glargine [Basaglar KwikPen U-100 Insulin] 100 unit/mL (3 mL) insulin pen 30 unit SUBCUT QPM Patient Comments: INJECT 60 UNITS SUBCUTANEOUSLY ONCE DAILY (30 UNITS EVERY MORNING AND 30 UNITS QPM) cholecalciferol (vitamin D3) [Vitamin D3] 25 mcg (1,000 unit) capsule 1,000 unit PO DAILY Patient Comments: no longer taking 05/19/ MG lidocaine [Lidoderm] 5 % adhesive patch,medicated 1 patch topical DAILY PRNQty: 15 0RF Rx Instructions: leave on most painful area for up to 12 hrs atorvastatin 80 mg tablet 40 mg PO BID Patient Comments: TAKE ONE TABLET AB BY MOUTH DAILY (cuts tab in half, takes morning and night to reduce side effects) clopidogrel 75 mg tablet 75 mg PO DAILY Patient Comments: TAKE ONE TABLET AB BY MOUTH DAILY magnesium oxide 400 mg (241.3 mg magnesium) tablet 400 mg PO BID lisinopril 2.5 mg tablet 2.5 mg PO DAILY Patient Comments: pt states that she has been taking 0.5 of 2.5mg pill (1.25mg) due to orthostatic reaction, PCP notified but order has not been changed HPI General Mode of arrival: EMS. Date/Time Provider Initiated Documentation: 06/06/25 19:36. Limitations to Documentation: no limitations. Information obtained by: patient. HPI Narrative: 65yo F with hx HTN, CAD, DM, CKD, COPD, on plavix, presenting with left flank pain after a fall. 4 days ago tripped while walking and fell onto a metal crib, impacting her left side. Did not strike her head or fall to the ground. Since then has had left sided flank pain which was initially adequately controlled with home hydrocodone, however now feels more crampy/spastic. Pain is minimal while at rest but becomes severe with movement or palpation. Located in her left flank and radiates down to her hip. No difficultly breathing. No chest pain. Able to walk but has not been because her pain is so bad. She is otherwise in her usual state of health with no fevers, chills, rash, nausea, vomiting, abdominal pain, numbness, tingling, focal weakness, or other concerns. Related Data Home Medications ?Medication ?Instructions ?Recorded ?Confirmed nitroglycerin 0.4 mg sublingual 0.4 mg sublingual PRN PRN 06/01/17 06/06/25 tablet (Nitrostat) naloxone 4 mg/actuation nasal 4 mg intranasal PRN PRN 09/10/19 06/06/25 spray (Narcan) nystatin 100,000 unit/mL oral 5 ml PO QID PRN PRN 09/10/19 06/06/25 suspension rolling walker with seat #1 ea 01/12/20 06/06/25 aspirin 81 mg tablet,delayed 81 mg PO DAILY 06/24/20 06/06/25 release Held on 06/06/25. Instructions: Pt Stopped/Never Started cyclobenzaprine 10 mg tablet 10 mg PO Q8H PRN PRN 06/24/20 06/06/25 dexlansoprazole 60 mg 60 mg PO DAILY 06/24/20 06/06/25 capsule,biphase delayed release (Dexilant) duloxetine 60 mg capsule,delayed 60 mg PO .COMPLEX 06/24/20 06/06/25 release fluticasone propionate 50 1 spray intranasal DAILY 06/24/20 06/06/25 mcg/actuation nasal spray,suspension hydrocodone 5 mg-acetaminophen 325 1 tab PO Q8H PRN PRN 06/24/20 06/06/25 mg tablet docusate sodium 250 mg capsule 250 mg PO HS PRN 07/16/20 06/06/25 insulin aspart U-100 100 unit/mL 2 - 20 units subcut 0800,1200,1700 11/15/20 06/06/25 (3 mL) subcutaneous pen (Novolog FlexPen U-100 Insulin aspart) bupropion HCl 150 mg tablet,12 hr 1 tab PO BID 02/07/22 06/06/25 sustained-release insulin glargine 100 unit/mL (3 30 unit subcut QPM 02/10/22 06/06/25 mL) subcutaneous pen (Basaglar KwikPen U-100 Insulin) cholecalciferol (vitamin D3) 25 1,000 unit PO DAILY 02/20/23 06/06/25 mcg (1,000 unit) capsule (Vitamin D3) lidocaine 5 % topical patch 1 patch topical DAILY PRN #15 ea 02/20/23 06/06/25 (Lidoderm) lorazepam 0.5 mg tablet 0.5 mg PO BID PRN 06/25/23 06/06/25 atorvastatin 80 mg tablet 40 mg PO BID 07/24/23 06/06/25 clopidogrel 75 mg tablet 75 mg PO DAILY 09/07/23 06/06/25 magnesium oxide 400 mg (241.3 mg 400 mg PO BID 09/07/23 06/06/25 magnesium) tablet lisinopril 2.5 mg tablet 2.5 mg PO DAILY 09/17/23 06/06/25 dexlansoprazole 30 mg 30 mg PO DAILY 04/20/24 06/06/25 capsule,biphase delayed release (Dexilant) isosorbide dinitrate 30 mg tablet 30 mg PO DAILY 04/20/24 06/06/25 duloxetine 30 mg capsule,delayed 30 mg PO HS 04/07/25 06/06/25 release tirzepatide 10 mg/0.5 mL 10 mg subcut .weekly 04/07/25 06/06/25 subcutaneous pen injector ([place]) benzonatate 100 mg capsule 100 mg PO TID PRN cough #14 caps 04/12/25 06/06/25 Previous Rx's ?Medication ?Instructions ?Recorded rolling walker with seat #1 ea 01/12/20 lidocaine 5 % topical patch 1 patch topical DAILY PRN #15 ea 02/20/23 (Lidoderm) benzonatate 100 mg capsule 100 mg PO TID PRN cough #14 caps 04/12/25 Allergies Allergy/AdvReac Type Severity Reaction Status Date / Time Penicillins Allergy Contraindic Unverified 06/06/25 22:40 ated Sulfa (Sulfonamide Allergy Contraindic Unverified 06/06/25 22:40 Antibiotics) ated exenatide (From [place]) AdvReac Intermediate diarrhea Unverified 06/06/25 22:40 metformin AdvReac Intermediate diarrhea Unverified 06/06/25 22:40 quetiapine (From Seroquel) AdvReac Intermediate Nausea Unverified 06/06/25 22:40 amitriptyline AdvReac made my Unverified 06/06/25 22:40 face go numb amoxicillin trihydrate (From AdvReac acute Unverified 06/06/25 22:40 Augmentin) kidney failure NSAIDS (Non-Steroidal AdvReac stage III Unverified 06/06/25 22:40 Anti-Inflamma kidney disease potassium clavulanate (From AdvReac acute Unverified 06/06/25 22:40 Augmentin) kidney failure General Stated Complaint: Fall/Non TraumaCriteria SADE: 3 Review of Systems Narrative: see HPI Exam Narrative Exam Narrative: GENERAL: Alert, no acute distress. SKIN: Warm and well perfused. HEAD: Atraumatic, normocephalic without edema, discoloration or evidence of trauma. Facial bones without deformities or tenderness. EYES: PERRL. No scleral icterus or conjunctival injection. EARS: No hemotympanum. NOSE: No discharge, tenderness, laxity. MOUTH: Moist mucus membranes without blood. Posterior pharynx without erythema or exudate. NECK: Trachea midline. No discolorations or edema. CV: Regular rate and rhythm, Normal s1 and s2. No murmurs, rubs, or gallops. PV: Radial pulses 2+ bilaterally and symmetric. Dorsalis pedis pulses palpable bilaterally and symmetric. 2+ capillary refill. No extremity edema. CHEST: Chest symmetric with respirations. Faint echymosis over left posterolateral 11-12th ribs, TTP in this area. Otherwise no chest wall tenderness. No crepitus. No step offs. Lungs are clear to auscultation bilaterally. ABDOMEN: No ecchymosis or abrasions. Soft, nondistended, nontender. BACK: No abrasions, skin openings, or ecchymosis. Spine without bony tenderness, no step offs. PELVIC: Pelvis stable, nontender to lateral compression MSK: No gross deformities or discolorations or lesions. Tolerates full range of motion of extremities without tenderness. NEURO: Alert and oriented to person, place, and time. GCS 15. Sensation grossly intact. Strength 5/5 in bilateral UE and LE. Finger to nose intact bilaterally. Course Vital Signs Vital signs: Vital Signs Temperature 36.6 C 06/06/25 19:25 Pulse 96 H 06/06/25 19:25 Respiratory Rate 18 06/06/25 19:25 Blood Pressure 101/55 L 06/06/25 19:25 Pulse Oximetry 98 06/06/25 19:25 Temperature 36.6 C 06/06/25 19:25 Temperature Source Tympanic 06/06/25 19:25 Pulse 96 H 06/06/25 19:25 Respiratory Rate 18 06/06/25 19:25 Respiratory Effort Normal 06/06/25 19:42 Respiratory Depth Normal 06/06/25 19:42 Respiratory Pattern Normal 06/06/25 19:42 Blood Pressure 101/55 L 06/06/25 19:25 Blood Pressure Position Supine 06/06/25 19:25 Pulse Oximetry 98 06/06/25 19:25 Oxygen Delivery Method Room Air 06/06/25 19:25 Oxygen Flow Rate 0 06/06/25 19:25 Pain Level 10 06/06/25 19:25 Lab/Test Results Lab/Test Results: Laboratory Tests Range/Units 06/06/25 20:30 WBC (4.4-10.8) 10^3/uL 8.44 RBC (3.93-5.22) 10^6/uL 3.50 L Hgb (11.2-15.7) g/dL 11.0 L Hct (36.0-46.0) % 34.2 L MCV (80-95) fL 98 H MCH (27.0-33.0) pg 31.4 MCHC (32.0-36.0) % 32.2 RDW (11.7-14.6) % 13.8 Plt Count (130-400) 10^3/uL 270 MPV (8.0-11.0) fL 9.3 Immature Gran % % 0.6 Neutrophils % % 68.4 Lymphocytes % % 19.2 Monocytes % % 7.8 Eosinophils % % 3.3 Basophils % % 0.7 Nucleated RBC % (0.0-0.3) % 0.0 Absolute Neutrophils (1.2-6.7) 10^3/uL 5.77 Absolute Lymphocytes (1.2-3.4) 10^3/uL 1.62 Absolute Monocytes (0.1-0.8) 10^3/uL 0.66 Absolute Eosinophils (0.0-0.7) 10^3/uL 0.28 Absolute Basophils (0.0-0.2) 10^3/uL 0.06 PT (9.1-11.1) sec 9.4 INR (0.9-1.1) 0.9 APTT (20.6-30.2) sec 24.1 Sodium (136-145) mmol/L 138 Potassium (3.5-5.1) mmol/L 3.9 Chloride (98-107) mmol/L 100 Carbon Dioxide (21.0-32.0) mmol/L 29.4 Anion Gap (3-11) mmol/L 8.6 BUN (7-18) mg/dL 42 H Creatinine (0.55-1.02) mg/dL 1.9 H Est GFR (CKD-EPI 2020) (mL/min/1.73m2) 28.94 Glucose (74-106) mg/dL 107 H Calcium (8.5-10.1) mg/dL 9.5 Magnesium (1.8-2.4) mg/dL 2.3 Total Bilirubin (0.2-1.0) mg/dL 0.3 AST (15-37) U/L 13 L ALT (14-59) U/L 28 Alkaline Phosphatase (46-116) U/L 112 Total Protein (6.4-8.2) g/dL 7.4 Albumin (3.4-5.0) g/dL 3.6 Lipase (<78) U/L 14 Medical Decision Making 65yo F with hx HTN, CAD, DM, CKD, COPD, on plavix, presenting with left flank pain after a fall. 4 days ago tripped while walking and fell onto a metal crib, impacting her left side; did not strike her head or fall to the ground. Borderline tachycardiac on arrival; vital signs otherwise reassuring. Left poteriorlateral rib tenderness (11-12) on exam with faint overlying echymosis, otherwise no significant traumatic findings. Pain not adequately controlled at home despite home hydrocodone. Given age and AC, will get CT otto scan (though low suspicion for acute intrancranial or cervical spinal pathology). Will start with IV morphine for pain control while awaiting results of workup. -Labs reviewed as below, CBC with mild anemia (baseline on [facility] record review), CMP consistent with CKD and no actionable abnormalities, Mg normal, lipase not suggestive of acute pancreatic injury, coags normal. -CT head and c-spine indepenednely reviewed; no large ICH or mass or displaced cervical fracture on my view; radiology read with no acute findings. -CT chest/abd/pelvis independently reviewed; no hemo/pneuomthorax, free fluid, or displaced rib fractures on my view; radiology read with no acute findings including no indication of splenic injury. On reassessment patient has not yet received morphine. Will have it administered now and add tylenol given reassuring labs. Allowed time for medication to take effected and then trialed ambulation; patient unable to due to pain. Hesitant to prescribe larger doses of opiates for home given she lives alone, ambulates poorly at baseline, and is anticoagulated. Warrants observation stay for PT/OT and pain control. Discussed with [facility] hospitalist Dr. Fermin; pt accepted to medicine service. Awaiting orders and transfer to the floor. IMPRESSION: 1. No acute fracture. 2. No acute pneumothorax or pleural fluid collection. 3. Small patches of infiltrate and/or atelectasis were then each upper lobe IMPRESSION: 1. No acute fracture. 2. No soft tissue hematoma. 3. No acute intra-abdominal or pelvic findings. Lab Data Lab results reviewed: Yes I reviewed the patient's lab results. Labs: Laboratory Tests Range/Units 06/06/25 20:30 WBC (4.4-10.8) 10^3/uL 8.44 RBC (3.93-5.22) 10^6/uL 3.50 L Hgb (11.2-15.7) g/dL 11.0 L Hct (36.0-46.0) % 34.2 L MCV (80-95) fL 98 H MCH (27.0-33.0) pg 31.4 MCHC (32.0-36.0) % 32.2 RDW (11.7-14.6) % 13.8 Plt Count (130-400) 10^3/uL 270 MPV (8.0-11.0) fL 9.3 Immature Gran % % 0.6 Neutrophils % % 68.4 Lymphocytes % % 19.2 Monocytes % % 7.8 Eosinophils % % 3.3 Basophils % % 0.7 Nucleated RBC % (0.0-0.3) % 0.0 Absolute Neutrophils (1.2-6.7) 10^3/uL 5.77 Absolute Lymphocytes (1.2-3.4) 10^3/uL 1.62 Absolute Monocytes (0.1-0.8) 10^3/uL 0.66 Absolute Eosinophils (0.0-0.7) 10^3/uL 0.28 Absolute Basophils (0.0-0.2) 10^3/uL 0.06 PT (9.1-11.1) sec 9.4 INR (0.9-1.1) 0.9 APTT (20.6-30.2) sec 24.1 Sodium (136-145) mmol/L 138 Potassium (3.5-5.1) mmol/L 3.9 Chloride (98-107) mmol/L 100 Carbon Dioxide (21.0-32.0) mmol/L 29.4 Anion Gap (3-11) mmol/L 8.6 BUN (7-18) mg/dL 42 H Creatinine (0.55-1.02) mg/dL 1.9 H Est GFR (CKD-EPI 2020) (mL/min/1.73m2) 28.94 Glucose (74-106) mg/dL 107 H Calcium (8.5-10.1) mg/dL 9.5 Magnesium (1.8-2.4) mg/dL 2.3 Total Bilirubin (0.2-1.0) mg/dL 0.3 AST (15-37) U/L 13 L ALT (14-59) U/L 28 Alkaline Phosphatase (46-116) U/L 112 Total Protein (6.4-8.2) g/dL 7.4 Albumin (3.4-5.0) g/dL 3.6 Lipase (<78) U/L 14 Quality:SDOH Health Related Social Needs: Health related social needs transpo insecurity lonely/isolated Health related social needs details dose not want assistance at this time PFSH All Active Problems (Updated 06/06/25 @ 23:47 by Diamond Silva MD) Anticoagulated (Acute) Fall (Acute) Pain in rib (Acute) Hyperglycemia (Acute) Acute adrenal insufficiency (Acute) URI (upper respiratory infection) (Acute) Headache (Acute) Urinary tract infection (Acute) Atypical chest pain (Acute) Hypomagnesemia (Acute) COVID-19 (Acute) Coronary artery disease (Chronic) Chest pain (Acute) CAD (coronary atherosclerotic disease) (Acute) 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 (Acute) Primary osteoarthritis of both first carpometacarpal joints (Acute 12/22/17) Hypertension (Chronic) Insomnia (Acute) GERD (gastroesophageal reflux disease) (Chronic) Chronic kidney disease (Chronic) COPD (chronic obstructive pulmonary disease) (Chronic) Mixed anxiety depressive disorder (Acute) Medical History Fibromyalgia Panic disorder Mental disorder Pernicious anemia Proliferative retinopathy due to DM On penitentiary drug therapy Epigastric pain Diarrhea Wheezing Dupuytren's disease of palm Low back pain CKD stage 3 due to type 2 diabetes mellitus Acute exacerbation of chronic obstructive airways disease Allergic rhinitis 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 Insomnia Surgical History H/O lumpectomy Hx of tubal ligation section x2. No complications. Coronary Stent Cholecystectomy Appendectomy Family History Brother Diabetes Hypertension Heart disease Stroke Obesity Chronic headaches Arthritis Brother Arthritis Chronic headaches Diabetes Heart disease Hypertension Obesity Stroke Father Heart disease Stroke Hypertension Chronic headaches Sister Diabetes Obesity Osteoporosis Daughter Migraine Obesity Brother Arthritis Diabetes Chronic headaches Hypertension Obesity Stroke Mother Asthma Arthritis Diabetes Obesity Stroke Glaucoma Social History Smoking/Tobacco Use Status: Former Tobacco Use Quit Date: 04/13/19 Pack-years: 45 Tobacco: How many years used: 45 Quit status: considering quitting Smoking risk assessment performed?: Yes Alcohol Intake: never Drug use: Never Substance use type: does not use Details: Quit smoking 6 years ago. Household members: friend(s) Housing: apartment Number of Children: 3 number of grandchildren: 14 current occupation: none What is your relationship status?: Panel score (0-1 are the most socially isolated patients): 0 What type of physical activity do you participate in: none Do you feel safe at home: Yes Do you feel safe in your relationship?: Yes
--- NOTE | 2025-06-06 21:24 | DI.VRAD_ITS ---
PROCEDURE INFORMATION: Exam: CT Head Without Contrast Exam date and time: 06/06/2025 9:02 PM Age: 65 years old Clinical indication: Injury; Blunt trauma; Injury date: 06/06/25; Fall on ac, HERNANDEZ TECHNIQUE: Imaging protocol: Computed tomography of the head without contrast. Radiation optimization: All CT scans at this facility use at least one of these dose optimization techniques: automated exposure control; mA and/or kV adjustment per patient size (includes targeted exams where dose is matched to clinical indication); or iterative reconstruction. COMPARISON: CT HEAD WO 02/05/2022 9:29 PM FINDINGS: Brain: A few scattered small areas of decreased density in the periventricular white matter which are likely secondary to chronic ischemia from microvascular change. Diffuse cerebral atrophy. No acute intracranial hemorrhage. Cerebral ventricles: Ventricular prominence in this patient with diffuse cerebral atrophy. Paranasal sinuses: No significant disease of the paranasal sinuses. Mastoid air cells: Normally aerated mastoid air cells. Orbital cavities: Prior right cataract surgery. Bones: No acute fracture. Soft tissues: Unremarkable. Vasculature: Arterial calcifications. IMPRESSION: 1. No acute fracture. 2. No acute intracranial findings. PROCEDURE INFORMATION: Exam: CT Cervical Spine Without Contrast Exam date and time: 06/06/2025 9:02 PM Age: 65 years old Clinical indication: Injury; Blunt trauma; Injury date: 06/06/25; Fall on ac, HERNANDEZ TECHNIQUE: Imaging protocol: Computed tomography of the cervical spine without contrast. Radiation optimization: All CT scans at this facility use at least one of these dose optimization techniques: automated exposure control; mA and/or kV adjustment per patient size (includes targeted exams where dose is matched to clinical indication); or iterative reconstruction. COMPARISON: CT CHEST PE CTA 06/25/2023 2:45 PM FINDINGS: Bones: No acute fracture. Normal alignment. No significant disc bulge or herniation. No severe spinal canal stenosis. No significant neural foraminal narrowing. Lungs: Lung apices are normal. Soft tissues: Unremarkable. IMPRESSION: No acute fracture or subluxation. Dictated and Authenticated by: Sergio Carvajal MD. Orderin Shira Fields MD
--- NOTE | 2025-06-06 21:37 | DI.VRAD_ITS ---
PROCEDURE INFORMATION: Exam: CT Chest With Contrast; Diagnostic Exam date and time: 06/06/2025 9:05 PM Age: 65 years old Clinical indication: Injury; Blunt trauma; Injury date: 06/06/25; Fall on ac, severe L sided pain, rib pain; Prior surgery; date: 6+ months: Appy, kadie, , heart stent TECHNIQUE: Imaging protocol: Diagnostic computed tomography of the chest with contrast. Radiation optimization: All CT scans at this facility use at least one of these dose optimization techniques: automated exposure control; mA and/or kV adjustment per patient size (includes targeted exams where dose is matched to clinical indication); or iterative reconstruction. Contrast material: OMNIPAQUE 350; Contrast volume: 75 ml; Contrast route: INTRAVENOUS (IV); COMPARISON: CT CHEST PE CTA 06/25/2023 2:45 PM FINDINGS: Lungs: Small patches of infiltrate and/or atelectasis were then each upper lobe. Pleural spaces: No pleural fluid collection. No pneumothorax. Heart: No pericardial effusion. Coronary artery calcification. Lymph nodes: No enlarged lymph nodes. Vasculature: Normal caliber thoracic aorta without dissection or aneurysm. Normal-variant retro tracheal origin of the right subclavian artery from the aortic arch. Bones/joints: Unremarkable for patient age. No acute fracture. Soft tissues: No soft tissue hematoma. IMPRESSION: 1. No acute fracture. 2. No acute pneumothorax or pleural fluid collection. 3. Small patches of infiltrate and/or atelectasis were then each upper lobe. PROCEDURE INFORMATION: Exam: CT Abdomen And Pelvis With Contrast Exam date and time: 06/06/2025 9:05 PM Age: 65 years old Clinical indication: Injury; Blunt trauma; Injury date: 06/06/25; Fall on ac, severe L sided pain, rib pain; Prior surgery; date: 6+ months: Appy, kadie, , heart stent TECHNIQUE: Imaging protocol: Computed tomography of the abdomen and pelvis with contrast. Radiation optimization: All CT scans at this facility use at least one of these dose optimization techniques: automated exposure control; mA and/or kV adjustment per patient size (includes targeted exams where dose is matched to clinical indication); or iterative reconstruction. Contrast material: OMNIPAQUE 350; Contrast volume: 75 ml; Contrast route: INTRAVENOUS (IV); COMPARISON: CT ABDOMEN PELVIS WO 02/05/2022 9:30 PM FINDINGS: Liver: Normal. No mass. Gallbladder and biliary ducts: Status post cholecystectomy. No biliary tract dilatation. Pancreas: Normal. No ductal dilation. Spleen: Normal. No splenomegaly. Adrenal glands: Normal. No mass. Kidneys and ureters: No hydronephrosis. No calcified renal or ureteral stones. No perinephric stranding or perinephric fluid. Stomach and bowel: Unremarkable. No obstruction. No mucosal thickening. Appendix: No evidence of appendicitis. Intraperitoneal space: No free air. No significant fluid collection. Vasculature: Unremarkable. No abdominal aortic aneurysm. Lymph nodes: No enlarged lymph nodes. Urinary bladder: Unremarkable as visualized. Reproductive: Unremarkable as visualized. Bones/joints: No acute fracture. Soft tissues: No soft tissue hematoma. IMPRESSION: 1. No acute fracture. 2. No soft tissue hematoma. 3. No acute intra-abdominal or pelvic findings. Dictated and Authenticated by: Sergio Carvajal MD. Orderin Shira Fields MD
[2025-06-06] MEDS: Acetaminophen 500 MG TAB 1000 MG PO (22:33)
[2025-06-06] MEDS: MORPHine 10 MG/ML VIAL 2 MG IVP (22:33)
[2025-06-07] VITALS (9 sets, daily range): BP systolic 82–110; BP diastolic 61–73; PULSE 85–90; RESP 13–20; TEMP 35.6–36.6; O2SAT 94–98
--- NOTE | 2025-06-07 00:26 | W.PM.HP.N ---
Date of service: 06/06/25 Time of Service: 23:00 Assessment and Plan Assessment and plan (1) Fall from ground level: Status: Acute Assessment and plan: June 03 fall onto metal doll crib No apparent loss of consciousness, CT head/cspine negative Requested PT evaluation (2) Musculoskeletal chest pain: Status: Acute Assessment and plan: Left posterior rib cage is very tender but no rib fractures seen on CTA chest Consider regular CXR PRN narcotics, increased from regular opioid dosing Incentive spirometry (3) Acute on chronic kidney failure: Status: Acute Assessment and plan: CKD stage IV with likely ISA based on increased creatinine Possible dehydration due to immobility since fall Fluids given in ED Monitor metabolic panel (4) 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: Status: Acute Assessment and plan: Patient is on tirzepatide only, shots on Tuesdays, she will have her pen brought in No longer on insulin Last A1C 6.4, will defer correctional insulin (5) CAD (coronary atherosclerotic disease): Status: Acute Assessment and plan: Continue home clopidogrel (6) GERD (gastroesophageal reflux disease): Status: Chronic Assessment and plan: continue PPI (7) Mixed anxiety depressive disorder: Status: Acute Assessment and plan: Continue home regimen Patient confirms she is on both bupropion and duloxetine (8) Opioid use disorder, moderate, dependence: Status: Acute Assessment and plan: Per review of FRAME HAND, she is on norco 5/325 up to 4 times per day Increased for injury while hospitalized (9) Chronic back pain greater than 3 months duration: Status: Acute Assessment and plan: group home narcotics for chronic back pain (10) Benzodiazepine dependence, episodic: Status: Acute Assessment and plan: Recent re-initiation of lorazepam for anxiety Will continue as PRN History of Present Illness History of Present Illness Chief Complaint: fall, left back pain Narrative: Nimisha Jordan is a 65 year old woman presenting June 06 after falling at home on Jun 03, landing on her left upper back on a metal doll crib. She does not recall hitting her head. She had discomfort after falling, and over the weekend the pain worsened until it was intolerable. She is opioid dependent for chronic back pain; her normal narcotic regimen was not sufficient to deal with the new upper back pain. She has had some dizziness and sweating due to the pain. She has pain with deep inspiration. She is not able to ambulate or turn without severe pain radiating into the hip. She is on DAPT, no DOAC. No abdominal pain, no N/V/D. In the ED she was mildly tachycardic in the 90's, mildly hypotensive to 98/46, vitals otherwise unremarkable. CT head/cspine without acute pathology. CTA chest without acute pathology; no visible rib fractures. CBC with mild anemia. Possible ISA on CKD4. Mildly elevated glucose 107. PMH includes CAD with stents, diabetes on tirzepatide, no longer on insulin; depression with anxiety on duloxetine, bupropion and lorazepam, GERD on PPI, HTN on lisinopril. OUD on norco 5/325 q6h. Benzodiazepine dependence, lorazepam 0.5 BID. PFSH All Active Problems (Updated 06/07/25 @ 05:30 by Andrew Fermin MD) Benzodiazepine dependence, episodic (Acute) Chronic back pain greater than 3 months duration (Acute) Opioid use disorder, moderate, dependence (Acute) Acute on chronic kidney failure (Acute) Musculoskeletal chest pain (Acute) Fall from ground level (Acute) Anticoagulated (Acute) Fall (Acute) Pain in rib (Acute) Hyperglycemia (Acute) Acute adrenal insufficiency (Acute) URI (upper respiratory infection) (Acute) Headache (Acute) Urinary tract infection (Acute) Atypical chest pain (Acute) Hypomagnesemia (Acute) COVID-19 (Acute) Coronary artery disease (Chronic) Chest pain (Acute) CAD (coronary atherosclerotic disease) (Acute) 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 (Acute) Primary osteoarthritis of both first carpometacarpal joints (Acute 12/22/17) Hypertension (Chronic) Insomnia (Acute) GERD (gastroesophageal reflux disease) (Chronic) Chronic kidney disease (Chronic) COPD (chronic obstructive pulmonary disease) (Chronic) Mixed anxiety depressive disorder (Acute) Medical History Fibromyalgia Panic disorder Mental disorder Pernicious anemia Proliferative retinopathy due to DM On intermediate card tender drug therapy Epigastric pain Diarrhea Wheezing Dupuytren's disease of palm Low back pain CKD stage 3 due to type 2 diabetes mellitus Acute exacerbation of chronic obstructive airways disease Allergic rhinitis 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 Insomnia Surgical History H/O lumpectomy Hx of tubal ligation section x2. No complications. Coronary Stent Cholecystectomy Appendectomy Family History Brother Diabetes Hypertension Heart disease Stroke Obesity Chronic headaches Arthritis Brother Arthritis Chronic headaches Diabetes Heart disease Hypertension Obesity Stroke Father Heart disease Stroke Hypertension Chronic headaches Sister Diabetes Obesity Osteoporosis Daughter Migraine Obesity Brother Arthritis Diabetes Chronic headaches Hypertension Obesity Stroke Mother Asthma Arthritis Diabetes Obesity Stroke Glaucoma Social History Smoking/Tobacco Use Status: Former Tobacco Use Quit Date: 04/13/19 Pack-years: 45 Tobacco: How many years used: 45 Quit status: considering quitting Smoking risk assessment performed?: Yes Alcohol Intake: never Drug use: Never Substance use type: does not use Details: Quit smoking 6 years ago. Household members: friend(s) Housing: apartment Number of Children: 3 number of grandchildren: 14 current occupation: none What is your relationship status?: Panel score (0-1 are the most socially isolated patients): 0 What type of physical activity do you participate in: none Do you feel safe at home: Yes Do you feel safe in your relationship?: Yes Meds Allergies and Home Medications Allergies Allergy/AdvReac Type Severity Reaction Status Date / Time Penicillins Allergy Contraindic Unverified 06/06/25 22:40 ated Sulfa (Sulfonamide Allergy Contraindic Unverified 06/06/25 22:40 Antibiotics) ated exenatide (From Byetta) AdvReac Intermediate diarrhea Unverified 06/06/25 22:40 metformin AdvReac Intermediate diarrhea Unverified 06/06/25 22:40 quetiapine (From Seroquel) AdvReac Intermediate Nausea Unverified 06/06/25 22:40 amitriptyline AdvReac made my Unverified 06/06/25 22:40 face go numb amoxicillin trihydrate (From AdvReac acute Unverified 06/06/25 22:40 Augmentin) kidney failure NSAIDS (Non-Steroidal AdvReac stage III Unverified 06/06/25 22:40 Anti-Inflamma kidney disease potassium clavulanate (From AdvReac acute Unverified 06/06/25 22:40 Augmentin) kidney failure Home Medications ?Medication ?Instructions ?Recorded ?Confirmed ?Type nitroglycerin 0.4 mg sublingual 0.4 mg sublingual PRN PRN 06/01/17 06/06/25 History tablet (Nitrostat) naloxone 4 mg/actuation nasal 4 mg intranasal PRN PRN 09/10/19 06/06/25 History spray (Narcan) nystatin 100,000 unit/mL oral 5 ml PO QID PRN PRN 09/10/19 06/06/25 History suspension rolling walker with seat #1 ea 01/12/20 06/06/25 Rx aspirin 81 mg tablet,delayed 81 mg PO DAILY 06/24/20 06/06/25 History release Held on 06/06/25. Instructions: Pt Stopped/Never Started cyclobenzaprine 10 mg tablet 10 mg PO Q8H PRN PRN 06/24/20 06/06/25 History dexlansoprazole 60 mg 60 mg PO DAILY 06/24/20 06/06/25 History capsule,biphase delayed release (Dexilant) duloxetine 60 mg capsule,delayed 60 mg PO .COMPLEX 06/24/20 06/06/25 History release fluticasone propionate 50 1 spray intranasal DAILY 06/24/20 06/06/25 History mcg/actuation nasal spray,suspension hydrocodone 5 mg-acetaminophen 325 1 tab PO Q8H PRN PRN 06/24/20 06/06/25 History mg tablet docusate sodium 250 mg capsule 250 mg PO HS PRN 07/16/20 06/06/25 History insulin aspart U-100 100 unit/mL 2 - 20 units subcut 0800,1200,1700 11/15/20 06/06/25 History (3 mL) subcutaneous pen (Novolog FlexPen U-100 Insulin aspart) bupropion HCl 150 mg tablet,12 hr 1 tab PO BID 02/07/22 06/06/25 History sustained-release insulin glargine 100 unit/mL (3 30 unit subcut QPM 02/10/22 06/06/25 History mL) subcutaneous pen (Basaglar KwikPen U-100 Insulin) cholecalciferol (vitamin D3) 25 1,000 unit PO DAILY 02/20/23 06/06/25 History mcg (1,000 unit) capsule (Vitamin D3) lidocaine 5 % topical patch 1 patch topical DAILY PRN #15 ea 02/20/23 06/06/25 Rx (Lidoderm) lorazepam 0.5 mg tablet 0.5 mg PO BID PRN 06/25/23 06/06/25 History atorvastatin 80 mg tablet 40 mg PO BID 07/24/23 06/06/25 History clopidogrel 75 mg tablet 75 mg PO DAILY 09/07/23 06/06/25 History magnesium oxide 400 mg (241.3 mg 400 mg PO BID 09/07/23 06/06/25 History magnesium) tablet lisinopril 2.5 mg tablet 2.5 mg PO DAILY 09/17/23 06/06/25 History dexlansoprazole 30 mg 30 mg PO DAILY 04/20/24 06/06/25 History capsule,biphase delayed release (Dexilant) isosorbide dinitrate 30 mg tablet 30 mg PO DAILY 04/20/24 06/06/25 History duloxetine 30 mg capsule,delayed 30 mg PO HS 04/07/25 06/06/25 History release tirzepatide 10 mg/0.5 mL 10 mg subcut .weekly 04/07/25 06/06/25 History subcutaneous pen injector (Mounjaro) benzonatate 100 mg capsule 100 mg PO TID PRN cough #14 caps 04/12/25 06/06/25 Rx Exam Narrative Exam Narrative: General: This is a chronically ill-appearing, fatigued-appearing woman in some distress due to pain HEENT: Normocephalic, atraumatic CV: RRR. Left posterior chest wall exquisitely tender to any palpation Resp: CTAB, pain with inspiration Abd: soft, NTND MSK: voluntary motion x4 Neuro: Awake, alert, no focal deficits Results Labs 06/06/25 20:30 06/06/25 20:30 Labs: Laboratory Results - last 24 hr 06/06/25 20:30 WBC 8.44 RBC 3.50 L Hgb 11.0 L Hct 34.2 L MCV 98 H MCH 31.4 MCHC 32.2 RDW 13.8 Plt Count 270 MPV 9.3 Immature Gran % 0.6 Neutrophils % 68.4 Lymphocytes % 19.2 Monocytes % 7.8 Eosinophils % 3.3 Basophils % 0.7 Nucleated RBC % 0.0 Absolute Neutrophils 5.77 Absolute Lymphocytes 1.62 Absolute Monocytes 0.66 Absolute Eosinophils 0.28 Absolute Basophils 0.06 PT 9.4 INR 0.9 APTT 24.1 Sodium 138 Potassium 3.9 Chloride 100 Carbon Dioxide 29.4 Anion Gap 8.6 BUN 42 H Creatinine 1.9 H Est GFR (CKD-EPI 2020) 28.94 Glucose 107 H Calcium 9.5 Magnesium 2.3 Total Bilirubin 0.3 AST 13 L ALT 28 Alkaline Phosphatase 112 Total Protein 7.4 Albumin 3.6 Lipase 14 Last Vital Signs Temp 36.6 C 06/06/25 19:25 Pulse 87 06/06/25 22:50 Resp 25 H 06/06/25 22:50 BP 112/51 L 06/06/25 22:46 Pulse Ox 96 06/06/25 22:50 Time Spent Time spent with Patient: 40-54 minutes Time was spent: preparing to see the patient(eg.review tests), obtaining and/or reviewing separately otained hiistory, ordering medications,tests, procedures, referring, communicating with other health furnace caretaker, indepentently interpreting results, counseling the patient and care coordination
[2025-06-07] MEDS: diphenhydrAMINE 25 MG CAP PO ×2 (01:55→19:48)
[2025-06-07] MEDS: oxyCODONE 10 MG TAB PO ×3 (01:55→14:07)
[2025-06-07] MEDS: Normal Saline Flush 10 ML SYR IVP ×3 (01:56→19:46)
--- NOTE | 2025-06-07 05:32 | W.PC.ACHO ---
Registration Status: ADM ANAMIKA Primary Language: Preferred Language: Setswana ED Information & Data Chief Complaint Fall/Non TraumaCriteria 06/06/25 21:17 Triage Note BIBA, mechanical fall friday06/06/25 19:25 onto her L side, onto metal crib. pain increasing over the last few days. 10 pain on arrival. c/o LUQ pain that wraps around her side and radiates down left leg. on plavix. new onset HERNANDEZ and weakness. ambulates with walker. no visible brusing over area of tenderness. Took hydrocodone and muscle relaxer about 1 hour ago. 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 Spasm Sleep disorder Acute sinusitis Cataracts, bilateral RLS (restless legs syndrome) PTSD (post-traumatic stress disorder) Tobacco user Dysrhythmia Anemia Hypomagnesemia Hyperlipidemia Disorder of both eyes Diabetes mellitus with neurologic complication, with long-term current use of insulin Chronic renal impairment associated with type 2 diabetes mellitus Benign neoplasm of peripheral nerves and autonomic nervous system, unspecified Benign neoplasm of peripheral nerve Colon polyp Urinary tract infection Hypertension Renal insufficiency Depression Diabetes Insomnia (Last Reviewed 04/20/24 @ 14:12 by Liat Morales NP) H/O lumpectomy Hx of tubal ligation section Coronary Stent Cholecystectomy Appendectomy Most Recent Vital Signs Temperature 36.6 C 06/07/25 01:10 Temperature Source Temporal Artery Scan 06/07/25 01:00 Pulse 90 06/07/25 01:10 Pulse Rhythm Regular 06/07/25 01:10 Pulse 88 06/07/25 00:40 Respiratory Rate 18 06/07/25 01:10 Respiratory Effort Normal, Non-Labored 06/07/25 01:10 Respiratory Depth Normal 06/07/25 01:10 Respiratory Pattern Normal 06/07/25 01:10 Blood Pressure 110/62 06/07/25 01:10 Blood Pressure Mean 78 06/07/25 01:00 Blood Pressure Position Supine 06/06/25 19:25 Pulse Oximetry 98 06/07/25 01:10 Oxygen Delivery Method Room Air 06/07/25 01:10 Oxygen Flow Rate 0 06/07/25 01:10 Pain Level 5 06/07/25 01:55 Allergies Penicillins Allergy (Unverified 06/06/25 22:40) Contraindicated Sulfa (Sulfonamide Antibiotics) Allergy (Unverified 06/06/25 22:40) Contraindicated exenatide (From Byetta) Adverse Reaction (Intermediate, Unverified 06/06/25 22:40) diarrhea metformin Adverse Reaction (Intermediate, Unverified 06/06/25 22:40) diarrhea quetiapine (From Seroquel) Adverse Reaction (Intermediate, Unverified 06/06/25 22:40) Nausea amitriptyline Adverse Reaction (Unverified 06/06/25 22:40) made my face go numb amoxicillin trihydrate (From Augmentin) Adverse Reaction (Unverified 06/06/25 22:40) acute kidney failure NSAIDS (Non-Steroidal Anti-Inflamma Adverse Reaction (Unverified 06/06/25 22:40) stage III kidney disease pt states stage 4 now potassium clavulanate (From Augmentin) Adverse Reaction (Unverified 06/06/25 22:40) acute kidney failure Precautions Isolation Standard precaution 06/06/25 19:35 Active Medications Generic Name Dose Route Start Last Admin Trade Name Freq PRN Reason Stop Dose Admin Iohexol 100 ml 06/06/25 21:00 06/06/25 20:57 Omnipaque 350 Mg/Ml 100 Ml Btl IJ 07/06/25 23:59 75 ml DIRECTED CARRILLO Administration Oxycodone HCl 10 mg 06/07/25 00:51 06/07/25 01:55 Oxycodone 10 Mg Tab PO 10 mg Q4H PRN PRN Administration Sodium Chloride 0 ml 06/06/25 23:44 06/07/25 01:56 Normal Saline Flush 10 Ml Syr IVP 20 ml PRN PRN Administration IV IV Catheter Type [Right Saline Lock Antecubital] IV Catheter Gauge [Right 20 Antecubital] Diet Orders Category Date Time Status Diabetes Consistent CHO/Heart Healthy [DIET] Nutrition 06/07/25 Breakfast Active Diagnostics 10/14/25 10/13/25 Range/Units 05:35 20:30 WBC 8.44 (4.4-10.8) 10^3/uL RBC 3.50 L (3.93-5.22) 10^6/uL Hgb 11.0 L (11.2-15.7) g/dL Hct 34.2 L (36.0-46.0) % MCV 98 H (80-95) fL MCH 31.4 (27.0-33.0) pg MCHC 32.2 (32.0-36.0) % RDW 13.8 (11.7-14.6) % Plt Count 270 (130-400) 10^3/uL MPV 9.3 (8.0-11.0) fL Immature Gran % 0.6 % Neutrophils % 68.4 % Lymphocytes % 19.2 % Monocytes % 7.8 % Eosinophils % 3.3 % Basophils % 0.7 % Nucleated RBC % 0.0 (0.0-0.3) % Absolute Neutrophils 5.77 (1.2-6.7) 10^3/uL Absolute Lymphocytes 1.62 (1.2-3.4) 10^3/uL Absolute Monocytes 0.66 (0.1-0.8) 10^3/uL Absolute Eosinophils 0.28 (0.0-0.7) 10^3/uL Absolute Basophils 0.06 (0.0-0.2) 10^3/uL PT 9.4 (9.1-11.1) sec INR 0.9 (0.9-1.1) APTT 24.1 (20.6-30.2) sec Sodium Pending 138 (136-145) mmol/L Potassium Pending 3.9 (3.5-5.1) mmol/L Chloride Pending 100 (98-107) mmol/L Carbon Dioxide Pending 29.4 (21.0-32.0) mmol/L Anion Gap Pending 8.6 (3-11) mmol/L BUN Pending 42 H (7-18) mg/dL Creatinine Pending 1.9 H (0.55-1.02) mg/dL Est GFR (CKD-EPI 2020) Pending 28.94 (mL/min/1.73m2) Glucose Pending 107 H (74-106) mg/dL Calcium Pending 9.5 (8.5-10.1) mg/dL Magnesium 2.3 (1.8-2.4) mg/dL Total Bilirubin 0.3 (0.2-1.0) mg/dL AST 13 L (15-37) U/L ALT 28 (14-59) U/L Alkaline Phosphatase 112 (46-116) U/L Total Protein 7.4 (6.4-8.2) g/dL Albumin 3.6 (3.4-5.0) g/dL Lipase 14 (<78) U/L Intake and Output - 24 Hour Total 06/06/25 19:19 thru 06/07/25 03:50 Weight 88.451 kg Other: Urine Color Straw Urine Appearance Clear Urine Odor Normal Comment not measured Falls Risk Assessment History of Falls Admit Due to Fall 06/07/25 01:10 Contributing Factors Impairments 06/07/25 01:10 Ambulatory Aids Uses ambulatory device + 06/07/25 01:10 Tubes/Lines With any additional score 06/07/25 01:10 Gait Evaluation W/any additional score 06/07/25 01:10 Cognition No cognitive impairment 06/07/25 01:10 Fall Total Score 98 06/07/25 01:10 Level of Risk Maximum Risk 06/07/25 01:10 v v v v v v v v v Sending and/or Receiving Nurses: Please use comment section below to note any information pertinent to the patient hand-off not included above. Information / Comments: Pt here s/p mechanical fall 4 days ago. Pt being admitted OBS, pain control, PT eval Report received from: Roxanne Coffey RN
[2025-06-07] MEDS: Acetaminophen 500 MG TAB 1000 MG PO ×3 (06:38→23:07)
[2025-06-07 07:29] LABS: Anion Gap 8.6 mmol/L (3-11); BUN 42 mg/dL (7-18); CO2 26.4 mmol/L (21.0-32.0); Calcium 9.0 mg/dL (8.5-10.1); Chloride 101 mmol/L (98-107); Estimated GFR 33.07 (mL/min/1.73m2); Glucose 141 mg/dL (74-106); Potassium 4.2 mmol/L (3.5-5.1); Sodium 136 mmol/L (136-145)
[2025-06-07] MEDS: buPROPion-CR 150 MG TABCR PO ×2 (08:18→19:45)
[2025-06-07] MEDS: DULoxetine 30 MG CAP 60 MG PO (08:18)
[2025-06-07] MEDS: Atorvastatin 40 MG TAB PO ×2 (08:19→19:45)
[2025-06-07] MEDS: Pantoprazole 40 MG TABCR PO (08:19)
[2025-06-07] MEDS: Clopidogrel 75 MG TAB PO (08:19)
[2025-06-07] MEDS: Enoxaparin 30 MG/0.3 ML SYR SC (08:24)
--- NOTE | 2025-06-07 08:24 | PDOC.CMIN ---
Date of service: 06/07/25 Time of Service: 11:50 Care Management Initial Assmt Initial Assessment Reason for Hospitalization: Rib Fractures Functional Status/Living Situation Patient Presentation: Nimisha refused to meet with CM today. Information used in this assessment is per chart review: Nimisha lives in [place] with her boyfriend Jj. She has 3 children who live locally and described the family as fairly close but stated the kids don't visit her as often as she would like. Her daughter Denae is her paid caregiver through [employer] and helps with bathing, dressing and light household task for 3 hours a day 3 times a week. Yesenia does the cooking and the shopping. Nimisha has an electric wheelchair, 2 walkers, and a cane, all of which she uses as needed. Town of Residence: [place] Resides with: Other (Boyfriend Yesenia) Significant Other/Family: Local Natural Supports: Children and boyfriend Employment Status: Retired Instrumental Activities of Daily Living (ADLs): Requires support Medications Medication Management: No Issues/Barriers identified Physical Functioning/Mobility Assistive Device: electric w/c, walker, cane Advance Directives Advance Directives: Do you have an Advance Directive: Y 06/14/19, 15:30 AD On File at [facility]: Y 06/28/19, 09:32 Date Asked 05/19/23 05/19/23, 19:14 AD Date Reviewed 06/06/25 Today, 04:25 COLST On File at [facility] COLST Date Scanned Code Status Resuscitation Status Full Code Portal Pt does not currently have a portal and education provided: Yes Insurance Coverage/Financial Issues Insurance: [employer] Medicare Replacement - [id number] Medicaid of [place] - [id number] Care Team Visit Care Team Role Provider Type Cheyenne Benson APRN MD [facility] STAFF PHYSICIAN Jeny Almonte Primary Care Provider NON-[facility] STAFF PHYSICIAN Dwayne Zepeda Other Providers OTHER Diamond Sliva MD Emergency Provider [facility] STAFF PHYSICIAN Andrew Fermin MD Admit Provider [facility] STAFF PHYSICIAN Attending Provider Discharge Potential Discharge Needs: PCP F/U Appt Anticipated Barriers to Discharge: None Identified Patient/Family Education Needs: Review discharge instructions, discuss Ask Me Three Transportation: Private vehicle Plan: Anticipate Nimisha will be discharged home with a resumption of her caregiver services when medically cleared. She will follow up with her PCP and plan of care as prescribed and transport via private vehicle with family. CM will follow and continue to asssess for dicharge needs. Social Determinants of Health Screening Will the Patient Participate in the Screening?: Declined to provide Do you worry about having a steady place to live?: choose not to answer Problems where you live: no known problems In the past 12 months, have you had to go without electric, gas, oil or water in your home?: choose not to answer Health Related Social Needs Health related social needs: material hardship(utilities) (Z59.12) Health related social needs details: Pt declines any assistance or services at this time. PFSH All Active Problems (Updated 06/07/25 @ 05:30 by Andrew Fermin MD) Benzodiazepine dependence, episodic (Acute) Chronic back pain greater than 3 months duration (Acute) Opioid use disorder, moderate, dependence (Acute) Acute on chronic kidney failure (Acute) Musculoskeletal chest pain (Acute) Fall from ground level (Acute) Anticoagulated (Acute) Fall (Acute) Pain in rib (Acute) Hyperglycemia (Acute) Acute adrenal insufficiency (Acute) URI (upper respiratory infection) (Acute) Headache (Acute) Urinary tract infection (Acute) Atypical chest pain (Acute) Hypomagnesemia (Acute) COVID-19 (Acute) Coronary artery disease (Chronic) Chest pain (Acute) CAD (coronary atherosclerotic disease) (Acute) 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 (Acute) Primary osteoarthritis of both first carpometacarpal joints (Acute 12/22/17) Hypertension (Chronic) Insomnia (Acute) GERD (gastroesophageal reflux disease) (Chronic) Chronic kidney disease (Chronic) COPD (chronic obstructive pulmonary disease) (Chronic) Mixed anxiety depressive disorder (Acute) Medical History Fibromyalgia Panic disorder Mental disorder Pernicious anemia Proliferative retinopathy due to DM On mcc drug therapy Epigastric pain Diarrhea Wheezing Dupuytren's disease of palm Low back pain CKD stage 3 due to type 2 diabetes mellitus Acute exacerbation of chronic obstructive airways disease Allergic rhinitis 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 Insomnia Surgical History H/O lumpectomy Hx of tubal ligation section x2. No complications. Coronary Stent Cholecystectomy Appendectomy Family History Brother Diabetes Hypertension Heart disease Stroke Obesity Chronic headaches Arthritis Brother Arthritis Chronic headaches Diabetes Heart disease Hypertension Obesity Stroke Father Heart disease Stroke Hypertension Chronic headaches Sister Diabetes Obesity Osteoporosis Daughter Migraine Obesity Brother Arthritis Diabetes Chronic headaches Hypertension Obesity Stroke Mother Asthma Arthritis Diabetes Obesity Stroke Glaucoma Social History Smoking/Tobacco Use Status: Former Tobacco Use Quit Date: 04/13/19 Pack-years: 45 Tobacco: How many years used: 45 Quit status: considering quitting Smoking risk assessment performed?: Yes Alcohol Intake: never Drug use: Never Substance use type: does not use Details: Quit smoking 6 years ago. Household members: friend(s) Housing: apartment Number of Children: 3 number of grandchildren: 14 current occupation: none What is your relationship status?: Panel score (0-1 are the most socially isolated patients): 0 What type of physical activity do you participate in: none Do you feel safe at home: Yes Do you feel safe in your relationship?: Yes
--- NOTE | 2025-06-07 09:12 | W.ED.FU ---
Date of service: 06/07/25 Time of Service: 09:13 Follow Up Plan: I received a call from radiology as this patient indeed had a left-sided rib fracture that was not initially seen on CT read. I pass along this finding to Dr. iHll as patient had been hospitalized.
--- NOTE | 2025-06-07 10:23 | W.PM.PROGNOT ---
Date of Service Date of service: 06/07/25 Time of Service: 10:23 Assessment and Plan Assessment and plan (1) Fall from ground level: Status: Acute Assessment and plan: June 03 fall onto metal doll crib- reported tripping non-syncopal No apparent loss of consciousness,completed on presentation CT head/cspine negative PT consultation pending Not anticoagulant on DOAC but on anti-platelet - Plavix and statin for Hx of CAD (2) Musculoskeletal chest pain: Status: Acute Assessment and plan: Left posterior rib cage is very tender initially no fracture on but no rib fractures seen on CTA chest- 06/07 09:42 Left sided 11th rib fracture reported Ongoing PRN narcotics, increased from regular opioid dosing scheduled APAP and diclofenac TP Ongoing incentive spirometry (3) Acute on chronic kidney failure: Status: Acute Assessment and plan: CKD stage IV with likely ISA based on increased creatinine Possible dehydration due to immobility since fall Fluids given in ED, Cr trending down -encourage oral fluid BMP in AM Avoid nephrotoxic meds and renal dosing of drugs - hold ACEI's, diuretic and ARBs (4) 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: Status: Acute Assessment and plan: Patient is on tirzepatide only, shots on Tuesdays, she will have her pen brought in No longer on insulin Last A1C 6.4, ongoing SSI coverage (5) CAD (coronary atherosclerotic disease): Status: Acute Assessment and plan: Continue home clopidogrel and statin (6) GERD (gastroesophageal reflux disease): Status: Chronic Assessment and plan: Ongoing PPI (7) Mixed anxiety depressive disorder: Status: Acute Assessment and plan: Continue home regimen Patient confirmed that she is on both bupropion and duloxetine- ongoing home regimen (8) Opioid use disorder, moderate, dependence: Status: Acute Assessment and plan: 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 review of 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 MANAGER, she is on norco 5/325 up to 4 times per day Increased for injury while hospitalized (9) Chronic back pain greater than 3 months duration: Status: Acute Assessment and plan: 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 (10) Hypertension: Status: Chronic Assessment and plan: On antihypertensives at home but reported decreased dosing d/t hypotension - See ISA on CKD (11) Benzodiazepine dependence, episodic: Status: Acute Assessment and plan: Recent re-initiation of lorazepam for anxiety Will continue as PRN Subjective Subjective Patient reports: feels better, still having pain, tolerating liquids well, tolerating a regular diet, voiding w/o difficulty, flatus, bowel movement and other (denies dizziness, syncope, mentioned increased rate of events where she is unsteady ); denies diarrhea, blood in stool, nausea, vomiting, shortness of breath or fever Exam Narrative Exam Narrative: Alert and oriented X3 , no acute necrological deficits, unlabored breathing clear lungs, S1, S2 regular heart rate and rhythm, abdomen is non-distended , soft and non-tender, no CVA tenderness, but left rib pain with mobilization and palpation, moves all 4 extremities Objective Last Vital Signs Temp 35.6 C L 06/07/25 07:13 Pulse 86 06/07/25 07:13 Resp 17 06/07/25 07:13 BP 82/73 L 06/07/25 07:13 Pulse Ox 94 06/07/25 07:13 Laboratory Results - last 24 hr 06/06/25 06/07/25 20:30 06:10 WBC 8.44 RBC 3.50 L Hgb 11.0 L Hct 34.2 L MCV 98 H MCH 31.4 MCHC 32.2 RDW 13.8 Plt Count 270 MPV 9.3 Immature Gran % 0.6 Neutrophils % 68.4 Lymphocytes % 19.2 Monocytes % 7.8 Eosinophils % 3.3 Basophils % 0.7 Nucleated RBC % 0.0 Absolute Neutrophils 5.77 Absolute Lymphocytes 1.62 Absolute Monocytes 0.66 Absolute Eosinophils 0.28 Absolute Basophils 0.06 PT 9.4 INR 0.9 APTT 24.1 Sodium 138 136 Potassium 3.9 4.2 Chloride 100 101 Carbon Dioxide 29.4 26.4 Anion Gap 8.6 8.6 BUN 42 H 42 H Creatinine 1.9 H 1.7 H Est GFR (CKD-EPI 2020) 28.94 33.07 Glucose 107 H 141 H Calcium 9.5 9.0 Magnesium 2.3 Total Bilirubin 0.3 AST 13 L ALT 28 Alkaline Phosphatase 112 Total Protein 7.4 Albumin 3.6 Lipase 14 Time Spent with Patient Time Spent with Patient: >50 minutes Time was spent: preparing to see the patient(eg.review tests), obtaining and/or reviewing separately otained hiistory, ordering medications,tests, procedures, referring, communicating with other health childcare center director, indepentently interpreting results, counseling the patient, care coordination and other
--- NOTE | 2025-06-07 10:31 | PDOC.CMDIS ---
Date of service: 06/07/25 Time of Service: 10:31 LACE Index Scoring Tool Questions: Length of Stay (in days): 1 Was the patient admitted via the E.D.?: Yes Comorbidities: Chronic Pulmonary Disease and Liver or Renal Disease E.D. Visits: 4 Answers: Total Score: 13 Risk of Readmission: High Risk Care Management Discharge Plan Reason for Hospitalization: Rib Fractures Discharge Plan: Nimisha is discharged home via private vehicle with family. She will resume caregiver support and follow up with community providers and continue per her discharge plan of care. Patient/Family Education Needs: Review discharge instructions and plan to follow up after discharge. Discuss ask me three. SDOH Health Related Social Needs: Health related social needs material hardship Health related social needs details Pt declines any assistance or services at this time. Health related social needs details: Pt declines any assistance or services at this time.
--- NOTE | 2025-06-07 14:19 | PT.INIE ---
PT Notes Visit Reasons: Rib Fractures Physical Therapy inpatient initial Evaluation Date: 06/07/2025 Referring Doctor: Dr Fermin PT Orders: PT CONSULT: Safety consult for discharge Precautions: Fall risk, standard, IV access Patient Profile/Admitting Diagnosis: Nimisha Jordan is a 65 year old woman presenting June 06 after falling at home on Jun 03, landing on her left upper back on a metal doll crib. She does not recall hitting her head. She had discomfort after falling, and over the weekend the pain worsened until it was intolerable. She is opioid dependent for chronic back pain; her normal narcotic regimen was not sufficient to deal with the new upper back pain. She has had some dizziness and sweating due to the pain. She has pain with deep inspiration. In the ED she was mildly tachycardic in the 90's, mildly hypotensive to 98/46, vitals otherwise unremarkable. CT head/cspine without acute pathology. CTA chest without acute pathology chest CT revealed Left 11th rib fracture.. PMHX: Benzodiazepine dependence, episodic (Acute) Chronic back pain greater than 3 months duration (Acute) Opioid use disorder, moderate, dependence (Acute) Acute on chronic kidney failure (Acute) Musculoskeletal chest pain (Acute) Fall from ground level (Acute) Anticoagulated (Acute) Fall (Acute) Pain in rib (Acute) Hyperglycemia (Acute) Acute adrenal insufficiency (Acute) URI (upper respiratory infection) (Acute) Headache (Acute) Urinary tract infection (Acute) Atypical chest pain (Acute) Hypomagnesemia (Acute) COVID-19 (Acute) Coronary artery disease (Chronic) Chest pain (Acute) CAD (coronary atherosclerotic disease) (Acute) 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 (Acute) Primary osteoarthritis of both first carpometacarpal joints (Acute 12/22/17) Hypertension (Chronic) Insomnia (Acute) GERD (gastroesophageal reflux disease) (Chronic) Chronic kidney disease (Chronic) COPD (chronic obstructive pulmonary disease) (Chronic) Mixed anxiety depressive disorder (Acute) Medical History Fibromyalgia Panic disorder Mental disorder Pernicious anemia Proliferative retinopathy due to DM 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 Epigastric pain Diarrhea Wheezing Dupuytren's disease of palm Low back pain CKD stage 3 due to type 2 diabetes mellitus Acute exacerbation of chronic obstructive airways disease Allergic rhinitis 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Insomnia Surgical History H/O lumpectomy Hx of tubal ligation section x2. No complications.Coronary Stent Cholecystectomy Appendectomy Social History/Home Situation: Patient reports she resides with her son and a roommate who provides transportation for her. Patient independent with ambulation and ADLs Equipment Owned/DME: FWW, wheelchair Subjective: Patient stating she does not want to move she is in too much pain. Nurse notified pain meds provided patient reapproached for evaluation 1 hour later with nurse present Objective: [] General Observation: Disheveled female supine in bed pulling blankets over her head Mental Status: Alert, agitated, able to follow instructions initially declining to participate then agreed. Pain: ribs and back 8/10 ROM: [] BUE: WFL Right Lower Extremity: WFL Left Lower Extremity: WFL Strength: [] Right Upper Extremity: Functionally 5/5 Left Upper Extremity: Functionally 5/5 Right Lower Extremity: Hip flexion: 2+/5; hip abduction: 2+ /5; hip extension: 2+ /5; knee extension: 3 /5; knee flexion: 2+ /5 ankle DF: 3 /5 ; ankle PF: 3/5 Left Lower Extremity: Hip flexion: 2+/5; hip abduction: 2+ /5; hip extension: 2+ /5; knee extension: 3 /5; knee flexion: 2+ /5 ankle DF: 3 /5 ; ankle PF: 3/5 Sensation: Intact Bed Mobility/Transfers: [] Supine to sit CGA and increased time to allow patient to move on her own to reduce pain Sit to stand min assist with cues for hand placement Stand to sit CGA with cues for hand placement Bed to chair min assist with FWW Gait: Ambulated with FWW 12 feet with CGA. Patient demonstrating poor foot clearance bilaterally increased pain difficulty advancing lower extremities with increased weight bearing through upper extremities. Balance: [] Static Sitting: Good Dynamic Sitting: Fair plus Static Standing: Fair with bilateral upper extremity support of walker Dynamic Standing: Fair minus with upper extremity support Special Tests: [] Mobility Limitations Standardized Measure [] [facility] AM-PAC 6 clicks Basic Mobility Inpatient Short Form: [] Raw Score: 13 CMS Score: 64.91% deficit Informed Consent/Education: Patient instructed in purpose of PT consult. Assessment: Patient is a 65 yo female who presents with clinical signs and symptoms consistent with current/admitting diagnoses that have resulted to mobility limitations, gait instability, generalized weakness, and impairment of motor control as demonstrated by the following impairment level findings: 1. Decreased strength to BLE major muscle groups 2. Impaired standing balance 3. Pain in back radiating to legs 4. Impaired functional activity tolerance Impairments are contributing to the following functional limitations: 1. Inability to safely ambulate without assistive device 2. Increase completion time for mobility ADL performance 3. Increased fall risk 4. Difficulty performing transfers at prior level of function Patient is assessed as a moderate complexity based on the following: History: 65-year-old female with impairment level findings, functional limitations, and past medical history as indicated above Examination: Demonstrable impairment in strength, balance, and mobility level with underlying impairments and functional limitations as documented above Presentation: evolving/stable Decision Making: moderate Goals: 1. independent bed mobility 2. Independent transfers with FWW 3. Mod I amb with FWW >50 feet Plan of Care/Treatment Plan: 1-2x/day, 7 days/week x 1 week. Plan of care has been reviewed with the PACKAGE HANDLER providing the service under Physical Therapy direction. Initiate Physical Therapy intervention for strengthening, bed mobility, transfers, gait, stairs, balance training, use of assistive device. DISCHARGE RECOMMENDATIONS: SNF versus home with home health PT TREATMENT CODE/TIME: 17786, [id number] Thank you for the opportunity to participate in the care of this patient. La Linn, PT [facility]
[2025-06-07] MEDS: DULoxetine 30 MG CAP PO (19:45)
[2025-06-07] MEDS: Carbamide Peroxide 15 ML BTL AU (19:49)
[2025-06-07] MEDS: Lidocaine 5% Patch 1 PATCH TP (23:07)
[2025-06-07] MEDS: Insulin Aspart 300 UNITS/3 ML PEN SC (23:10)
[2025-06-08] MEDS: oxyCODONE 10 MG TAB PO ×2 (05:12→09:41)
[2025-06-08] MEDS: Acetaminophen 500 MG TAB 1000 MG PO ×3 (05:12→22:30)
[2025-06-08 07:18] VITALS: BP 107/70; PULSE 88; RESP 17; TEMP 36.4; O2SAT 95
[2025-06-08] MEDS: Fluticasone NASAL SPRAY 16 GM BTL NS (08:11)
[2025-06-08] MEDS: Carbamide Peroxide 15 ML BTL AU ×2 (08:11→21:00)
[2025-06-08] MEDS: buPROPion-CR 150 MG TABCR PO ×2 (08:12→21:00)
[2025-06-08] MEDS: Pantoprazole 40 MG TABCR PO (08:12)
[2025-06-08] MEDS: DULoxetine 30 MG CAP 60 MG PO (08:12)
[2025-06-08] MEDS: Clopidogrel 75 MG TAB PO (08:12)
[2025-06-08] MEDS: Atorvastatin 40 MG TAB PO ×2 (08:12→21:00)
[2025-06-08] MEDS: Patch Removal 1 EACH TP (08:13)
[2025-06-08] MEDS: Normal Saline Flush 10 ML SYR IVP ×2 (08:13→21:01)
--- NOTE | 2025-06-08 08:57 | PDOC.CMDIS ---
Date of service: 06/08/25 Time of Service: 08:57 LACE Index Scoring Tool Questions: Length of Stay (in days): 2 Was the patient admitted via the E.D.?: Yes Comorbidities: Chronic Pulmonary Disease and Liver or Renal Disease E.D. Visits: 4 Answers: Total Score: 14 Risk of Readmission: High Risk Care Management Discharge Plan Reason for Hospitalization: Rib Fractures Discharge Plan: Nimisha is discharged home via private vehicle with family. She will resume caregiver support and follow up with community providers and continue per her discharge plan of care. Patient/Family Education Needs: Review discharge instructions and plan to follow up after discharge. Discuss ask me three. SDOH Health Related Social Needs: Health related social needs material hardship Health related social needs details Pt declines any assistance or services at this time. Health related social needs details: Pt declines any assistance or services at this time.
[2025-06-08] MEDS: Diclofenac 1% Gel 100 GM TUBE TP ×4 (09:42→21:00)
[2025-06-08 09:44] VITALS: BP 111/56; BP 111/75; BP 77/52; PULSE 102; PULSE 91; PULSE 98
[2025-06-08] MEDS: Lactated Ringers 1,000 ML 500 ML IV (10:34)
[2025-06-08 11:39] LABS: Abs Immature Grans 0.02 10^3/uL (0.0-0.06); HCT 28.0 % (36.0-46.0); HGB 9.5 g/dL (11.2-15.7); Immature Grans % 0.3 %; MCH 32.2 pg (27.0-33.0); MCHC 33.9 % (32.0-36.0); MCV 95 fL (80-95); MPV 9.4 fL (8.0-11.0); Platelet Count 222 10^3/uL (130-400); RBC 2.95 10^6/uL (3.93-5.22); RDW 13.4 % (11.7-14.6); RDW-SD 46.5 fL; WBC 6.07 10^3/uL (4.4-10.8)
[2025-06-08 11:49] LABS: Anion Gap 8.8 mmol/L (3-11); BUN 47 mg/dL (7-18); CO2 25.2 mmol/L (21.0-32.0); Calcium 8.7 mg/dL (8.5-10.1); Chloride 99 mmol/L (98-107); Estimated GFR 24.27 (mL/min/1.73m2); Glucose 122 mg/dL (74-106); Potassium 4.2 mmol/L (3.5-5.1); Sodium 133 mmol/L (136-145)
[2025-06-08 11:50] LABS: Hemoglobin A1C 5.7 % (<5.7)
[2025-06-08 12:37] VITALS: BP 119/57; BP 126/63; BP 77/52; PULSE 88; PULSE 93; PULSE 97
--- NOTE | 2025-06-08 14:17 | W.PM.PROGNOT ---
Date of Service Date of service: 06/08/25 Time of Service: 10:23 Assessment and Plan Assessment and plan (1) Fall from ground level: Status: Acute Assessment and plan: June 03 fall onto metal doll crib- reported tripping non-syncopal No apparent loss of consciousness,completed on presentation CT head/cspine negative PT consultation pending (2) Musculoskeletal chest pain: Status: Acute Assessment and plan: CTA chest- 06/07 09:42 Left sided 11th rib fracture reported Ongoing PRN narcotics, increased from regular opioid dosing- will reduce d/t point 3 Continue scheduled APAP and diclofenac TP Encourage incentive spirometry (3) Orthostatic hypotension: Status: Acute Assessment and plan: Positive this AM Remains orhtostatic positive despite IVF bolus 1 liter Will initiate slow IV hydration Orthostatic VS in AM (4) Acute on chronic kidney failure: Status: Acute Assessment and plan: CKD stage IV with likely ISA based on increased creatinine inthe setting of pre-renal ISA Possible dehydration due to immobility since fall on 06/03 Fluids given in ED Cr trending showed worsening today - IVF - LVEF 55% in 2021 BMP in AM Avoid nephrotoxic meds and renal dosing of drugs - hold ACEI's, diuretic and ARBs Monitor metabolic panel Na 133 will trend (5) 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: Status: Acute Assessment and plan: Patient is on tirzepatide only, shots on Tuesdays, she will have her pen brought in No longer on insulin: gluc 95-195 Last A1C 6.4, AC SSI , minimal coverage needed (6) CAD (coronary atherosclerotic disease): Status: Acute Assessment and plan: Continue home dose clopidogrel and statin (7) GERD (gastroesophageal reflux disease): Status: Chronic Assessment and plan: continue protonix (8) Mixed anxiety depressive disorder: Status: Acute Assessment and plan: Continue home regimen Ongoing bupropion and duloxetine (9) Opioid use disorder, moderate, dependence: Status: Acute Assessment and plan: Per review of DOCUMENTATION COORDINATOR, she is on norco 5/325 up to 4 times per day Increased for injury while hospitalized- trending dosage down d/t point 2 (10) Chronic back pain greater than 3 months duration: Status: Acute Assessment and plan: shelter narcotics for chronic back pain- home dose ordered Increased on admission with PRN oxycodone - now reduced d/t orhtostasis (11) Benzodiazepine dependence, episodic: Status: Acute Assessment and plan: home dose lorazepam PRN for anxiety Discussed w Dr Hill Subjective Subjective Patient reports: pain is less, tolerating liquids well, tolerating a regular diet, voiding w/o difficulty, flatus, bowel movement and other (report dizziness); denies diarrhea, blood in stool, nausea, vomiting, shortness of breath or fever Exam Narrative Exam Narrative: Alert and oriented X3 , no acute necrological deficits, unlabored breathing clear lungs, S1, S2 regular heart rate and rhythm, abdomen is non-distended , soft and non-tender, no CVA tenderness, improved pain to 11th left rib pain moves all 4 extremities Objective Last Vital Signs Temp 36.4 C L 06/08/25 07:18 Pulse 93 H 06/08/25 12:37 Resp 17 06/08/25 07:18 BP 126/63 06/08/25 12:37 Pulse Ox 95 06/08/25 07:18 Laboratory Results - last 24 hr 06/08/25 11:30 WBC 6.07 RBC 2.95 L Hgb 9.5 L Hct 28.0 L MCV 95 MCH 32.2 MCHC 33.9 RDW 13.4 Plt Count 222 MPV 9.4 Immature Gran % 0.3 Neutrophils % 57.4 Lymphocytes % 28.3 Monocytes % 7.9 Eosinophils % 5.3 Basophils % 0.8 Nucleated RBC % 0.0 Absolute Neutrophils 3.48 Absolute Lymphocytes 1.72 Absolute Monocytes 0.48 Absolute Eosinophils 0.32 Absolute Basophils 0.05 Sodium 133 L Potassium 4.2 Chloride 99 Carbon Dioxide 25.2 Anion Gap 8.8 BUN 47 H Creatinine 2.2 H Est GFR (CKD-EPI 2020) 24.27 Glucose 122 H Hemoglobin A1c 5.7 Calcium 8.7 Time Spent with Patient Time Spent with Patient: >50 minutes Time was spent: preparing to see the patient(eg.review tests), obtaining and/or reviewing separately otained hiistory, ordering medications,tests, procedures, referring, communicating with other health youth care professional, indepentently interpreting results, counseling the patient, care coordination and other
--- NOTE | 2025-06-08 14:23 | CHAPLAIN ---
Nimisha was resting in bed when I visited. She told me she'd had a rough morning and that PT was expecting her to walk this afternoon and she wasn't sure she'd be up for that. She had a visitor with her. (Maybe Yesenia, her boyfriend?) I explained my role and offered support.
--- NOTE | 2025-06-08 14:43 | PDOC.CMPRO ---
Date of service: 06/08/25 Time of Service: 15:03 Care Management Progress Note Progress Note Text Progress Note Text: Nimisha was awake and lying in bed when CM met with her. She was pleasant and easily engages in conversation. Discharge recommendation per PT is home with new PT vs SNF for STR. CM reviewed these recommendations with pt and she is agreeable to SNF for STR and discussed the need for a qualifying stay per insurance guidelines. Nimisha may meet inpatient status due to hypotension and hyponatremia, provider documentation is pending. Referrals will be sent to [facility] and the [facility] once supporting documentation is available, and admission status is better known. Discharge Anticipated Barriers to Discharge: None Identified Patient/Family Education Needs: Review discharge instructions, discuss Ask Me Three Transportation: Private vehicle Plan: PT recommends: Home with New PT (she declines [facility] PT) vs SNF for STR (is agreeable to STR.) 1.) If STR: CM will send referral to the [facility] and [facility] when supporting documentation is available. A qualifying stay will be required. 2.) If home: The plan is to resume caregiver support, follow up with her PCP and continue per her discharge plan of care. Transportation will be provided by family via private vehicle. CM will continue to follow and assess for ongoing discharge planning needs. Social Determinants of Health Screening Will the Patient Participate in the Screening?: Declined to provide Do you worry about having a steady place to live?: choose not to answer Problems where you live: no known problems In the past 12 months, have you had to go without electric, gas, oil or water in your home?: choose not to answer Health Related Social Needs Health related social needs: material hardship(utilities) (Z59.12) Health related social needs details: Pt declines any assistance or services at this time.
[2025-06-08] MEDS: Lactated Ringers 1,000 ML 100 ML IV (15:19)
--- NOTE | 2025-06-08 15:57 | PT.INTREAT ---
PT Notes Visit Reasons: Rib Fractures Inpatient Physical Therapy Treatment Note [facility] Date: 06/08/2025 PRECAUTIONS:Fall Risk SUBJECTIVE: Pt reports she needs to use the commode OBJECTIVE: Pt presented in am alert pleasant and agreeable to participate in OOB tasks. ? PAIN: 6/10 ribs and back VITALS: ?monitored by Nursing Therapeutic Activities ([id number][]): Direct one-on-one instruction in dynamic activities to improve functional performance. ? BED MOBILITY/TRANSFERS? Rolling L/R: independent with use of rail Supine-sit: Supervision via sidelying ? Sit-supine: min A for LEs? Sit-stand: CGA and cues for hands ? Stand-sit: CGA and cues for hands? Bed-Commode: step turn with FWW CGA and increased time for LE advancement? Commode-bed: step turn with FWW CGA with increased time for LE advancement ASSESSMENT:? While pt on commode she stated she would not participate in any more PT. She declined ambulation and exercises. Pt refused to be OOB to chair. SHe was assisted back to bed. She was reapproached after lunch and she stated she has been in and out of bed all day and she is in too much pain so she was not going to get up again. Pt education provided on importance of participating in PT to progress with her mobility prior to discharge to home. PLAN: continue per POC TREATMENT CODE/TIME: 61038/ DISCHARGE RECOMMENDATION: Home with HHPT vs SNF
[2025-06-08 19:15] VITALS: BP 101/53; PULSE 88; RESP 17; TEMP 36.5; O2SAT 97
[2025-06-08] MEDS: Lidocaine 5% Patch 1 PATCH TP (20:59)
[2025-06-08] MEDS: DULoxetine 30 MG CAP PO (21:00)
--- NOTE | 2025-06-08 22:22 | NUR.NOTE ---
Nursing Note: Offered patient to put another IV in her since she was complaining about her current IV not being in the best spot (In AC and beeps when she bends her arm). While looking for the best vein, the patient made snarky comments and continued to say I was looking in the wrong spot and needed to call the lab and have them do it. I told her lab doesn't do IVs, her snarky comments are not helpful, and I would appreciate if she could stop moving her arm, not talk down to me, and let me do my job. The patient then said well your fucking rude. I told the patient we are done here, I don't tolerate verbal abuse. I told her the IV she has works well and I'm not subjecting anyone else to come put and IV in here if she is going to behave like this. I never even stuck a vein, just looked. Patient then told primary Nurse Chayo that if she saw me again I'm going to throw something at her.
[2025-06-08] MEDS: oxyCODONE 5 MG TAB PO (22:30)
[2025-06-09] MEDS: oxyCODONE 5 MG TAB PO ×2 (02:40→10:34)
[2025-06-09] MEDS: Normal Saline Flush 10 ML SYR IVP ×2 (02:40→08:29)
[2025-06-09] MEDS: Acetaminophen 500 MG TAB 1000 MG PO ×2 (06:14→13:29)
[2025-06-09 07:26] VITALS: BP 123/84; PULSE 95; RESP 17; TEMP 36; O2SAT 94
[2025-06-09] MEDS: Diclofenac 1% Gel 100 GM TUBE TP (08:25)
[2025-06-09] MEDS: Enoxaparin 30 MG/0.3 ML SYR SC (08:26)
[2025-06-09] MEDS: Carbamide Peroxide 15 ML BTL AU (08:26)
[2025-06-09] MEDS: Insulin Aspart 300 UNITS/3 ML PEN SC (08:27)
[2025-06-09] MEDS: buPROPion-CR 150 MG TABCR PO (08:28)
[2025-06-09] MEDS: Clopidogrel 75 MG TAB PO (08:28)
[2025-06-09] MEDS: DULoxetine 30 MG CAP 60 MG PO (08:28)
[2025-06-09] MEDS: Pantoprazole 40 MG TABCR PO (08:28)
[2025-06-09] MEDS: Atorvastatin 40 MG TAB PO (08:28)
[2025-06-09] MEDS: Patch Removal 1 EACH TP (08:29)
[2025-06-09 09:17] VITALS: BP 117/77; BP 82/56; PULSE 101; PULSE 102
--- NOTE | 2025-06-09 09:47 | PDOC.CMPRO ---
Date of service: 06/09/25 Time of Service: 09:48 Care Management Progress Note Discharge Potential Discharge Needs: PCP F/U Appt and Other (coordination of SNF vs HH services) Anticipated Barriers to Discharge: None Identified Patient/Family Education Needs: Review discharge instructions, discuss Ask Me Three Transportation: Private vehicle Plan: Anticipate Nimisha will transfer to SNF, if accepted; referrals are pending. If she does not receive a bed offer at SNF, she will return home with a resumption of HH services. She will transport via private vehicle by her daughter. She will follow up with her PCP and discharge plan of care. CM will continue to follow. Social Determinants of Health Screening Will the Patient Participate in the Screening?: Declined to provide Do you worry about having a steady place to live?: choose not to answer Problems where you live: no known problems In the past 12 months, have you had to go without electric, gas, oil or water in your home?: choose not to answer Health Related Social Needs Health related social needs: material hardship(utilities) (Z59.12) Health related social needs details: Pt declines any assistance or services at this time.
[2025-06-09 10:26] LABS: Abs Immature Grans 0.02 10^3/uL (0.0-0.06); HCT 30.2 % (36.0-46.0); HGB 10.3 g/dL (11.2-15.7); Immature Grans % 0.3 %; MCH 32.1 pg (27.0-33.0); MCHC 34.1 % (32.0-36.0); MCV 94 fL (80-95); MPV 9.5 fL (8.0-11.0); Platelet Count 264 10^3/uL (130-400); RBC 3.21 10^6/uL (3.93-5.22); RDW 13.3 % (11.7-14.6); RDW-SD 46.0 fL; WBC 6.53 10^3/uL (4.4-10.8)
[2025-06-09 10:35] LABS: Anion Gap 10.2 mmol/L (3-11); BUN 40 mg/dL (7-18); CO2 23.8 mmol/L (21.0-32.0); Calcium 9.1 mg/dL (8.5-10.1); Chloride 99 mmol/L (98-107); Estimated GFR 27.21 (mL/min/1.73m2); Glucose 118 mg/dL (74-106); Potassium 4.2 mmol/L (3.5-5.1); Sodium 133 mmol/L (136-145)
--- NOTE | 2025-06-09 11:26 | W.PM.DS.N ---
Date of service: 06/09/25 Time of Service: 11:26 DS: Diagnosis Discharge Diagnosis (1) Fall from ground level: Status: Acute (2) Musculoskeletal chest pain: Status: Acute (3) Orthostatic hypotension: Status: Acute (4) Acute on chronic kidney failure: Status: Acute (5) 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: Status: Acute (6) CAD (coronary atherosclerotic disease): Status: Acute (7) GERD (gastroesophageal reflux disease): Status: Chronic (8) Mixed anxiety depressive disorder: Status: Acute (9) Opioid use disorder, moderate, dependence: Status: Acute (10) Chronic back pain greater than 3 months duration: Status: Acute (11) Benzodiazepine dependence, episodic: Status: Acute Discharge Plan Disposition Patient Disposition: Home W/Home Health Services Condition: Improving Discharge Details Reason For Visit: Rib Fractures Admit Date/Time: 06/08/25 10:00 Admit Provider: Andrew Fermin Attending Provider: Adnrew Fermin Primary Care Provider: Jeny Almonte [facility] Course Hospital Course: 65 year old fermale patient with a past medical history of non insulino dependent diabetes on Terzepatide,CAD with stents, depression with anxiety on duloxetine, bupropion and lorazepam, GERD , HTN opioid dependent chronic back pain presenting June 06 to the ED with worsening pain to her left back despite taking her chronic home opioid regimen, no head strike, not anticoagulated but on antiplatelet drug , reported dizziness and sweating d/t pain. She has had some dizziness and sweating due to the pain,BP 98/46 w/o tachycardia. Imaging was positive for findings of left -sided 11th rib fracture. Blood work showed no actionable findings except for ISA on CDK with Cr 1.9 from 1.5 last month; IVF bolus given in ED. The patient was admitted for observation for pain management, ISA on CKD and physical therapy. The patient subsequently found have worsening ISA on CKD with symptomatic orthostasis not resolve with IV crystalloid bolus necessitating inpatient admission. Lisinopril, isosorbide lisinopril and cyclobenzaprine held. Overnight the patient refused her IVF but Cr is trending down; the patient still showing orthostasis but is no longer symptomatic. This morning the patient is dressed,siting in chair and requesting to go home. Patient mentioned gaining weight from fluid during stay and anxious about getting her GLP-1( half-life 120 hours) . Patient educated on GLP-1 side effect that could cause a decreased in enteral intake including fluids. Patient counseled in discussing resumption of GLP-1 with PCP and to continue to monitor her blood sugars 4 times a day; A1 5.7. The patient will be discharged home with home health PT and nursing. Follow-up with PCP within 7 days of discharge please. Discussed with Dr. Hill. Recommendations for Follow Up Recommended tests to be ordered by follow up provider: GLP-1 , nutrition consult , BMP Home Meds and New Rx's Prescriptions: New acetaminophen 500 mg Tablet 1,000 mg PO Q8H Qty: 30 0RF Rx Instructions: Then resume your home pain medicine as ordered by your outpatient provider pantoprazole 40 mg Tablet,Delayed Release (Dr/Ec) 40 mg PO DAILY@0730 Qty: 30 0RF oxycodone 5 mg tablet 5 mg PO Q8H PRNQty: 15 0RF Rx Instructions: Do not take your home hydrocodone and acetaminophen while on this Continued nystatin 100,000 unit/mL Suspension 5 ml PO QID PRN PRN naloxone [Narcan] 4 mg/actuation [place],Non-Aerosol 4 mg INTRANASAL PRN PRN benzonatate 100 mg capsule 100 mg PO TID PRN (Reason: cough) Qty: 14 0RF (DME) rolling walker with seat Qty: 1 0RF Rx Instructions: As directed with ambulation bupropion HCl 150 mg tablet sustained-release 12 hr 1 tab PO BID Patient Comments: TAKE ONE TABLET BY MOUTH TWICE A DAY lorazepam 0.5 mg tablet 0.5 mg PO BID PRN Patient Comments: TAKE ONE TABLET BY MOUTH EVERY 6 HOURS NEEDED FOR ANXIETY dexlansoprazole [Dexilant] 30 mg capsule,biphase delayed releas 30 mg PO DAILY Patient Comments: pt takes in the morning duloxetine 30 mg capsule,delayed release(DR/EC) 30 mg PO HS Patient Comments: TAKE ONE CAPSULE BY MOUTH EVERY DAY nitroglycerin [Nitrostat] 0.4 MG tablet, sublingual 0.4 mg Sublingual PRN PRN fluticasone propionate 50 mcg/actuation spray,suspension 1 spray INTRANASAL DAILY Patient Comments: INSTILL 2 SPRAYS NASALLY DAILY duloxetine 60 mg capsule,delayed release(DR/EC) 60 mg PO .COMPLEX Patient Comments: 60mg am 30mg HS Rx Instructions: 60mg daily in am. 30mg HS dexlansoprazole [Dexilant] 60 mg capsule,biphase delayed releas 60 mg PO DAILY Patient Comments: takes at night docusate sodium 250 mg Capsule 250 mg PO HS PRN cholecalciferol (vitamin D3) [Vitamin D3] 25 mcg (1,000 unit) capsule 1,000 unit PO DAILY Patient Comments: no longer taking 05/19/23 MG lidocaine [Lidoderm] 5 % adhesive patch,medicated 1 patch topical DAILY PRNQty: 15 0RF Rx Instructions: leave on most painful area for up to 12 hrs atorvastatin 80 mg tablet 40 mg PO BID Patient Comments: TAKE ONE TABLET AB BY MOUTH DAILY (cuts tab in half, takes morning and night to reduce side effects) clopidogrel 75 mg tablet 75 mg PO DAILY Patient Comments: TAKE ONE TABLET AB BY MOUTH DAILY magnesium oxide 400 mg (241.3 mg magnesium) tablet 400 mg PO BID Held insulin aspart U-100 [Novolog FlexPen U-100 Insulin] 300 UNITS/3 ML insulin pen 2 - 20 units Sub-Q 0800,1200,1700 Hold Instructions: Resume on 06/22/25. Not taking at home reported - discuss with PCP - Rx Instructions: Dispense one pen see sliding scale isosorbide dinitrate 30 mg tablet 30 mg PO DAILY Hold Instructions: Resume on 06/22/25. Discussed with PCP held d/t orthostatic hypotension Patient Comments: TAKE ONE TABLET BY MOUTH EVERY DAY Mounjaro 10 mg/0.5 mL pen injector 10 mg SUBCUT .weekly Hold Instructions: Resume on 06/16/25. Discuss with PCP dehydration, ISA on CKD , Patient Comments: INJECT 10MG SUBCUTANEOUSLY EVERY WEEK, ROTATE INJECTION SITES cyclobenzaprine 10 mg tablet 10 mg PO Q8H PRN PRN Hold Instructions: Resume on 06/22/25. Discuss with PCP hydrocodone-acetaminophen 5-325 mg tablet 1 tab PO Q8H PRN PRN Hold Instructions: Resume on 06/14/25. Resume as ordered by PCP on 06/14/25- Do not take PRN oxycodone with this or additional acetaminophen Patient Comments: TAKE ONE TABLET BY MOUTH EVERY 6 TO 8 HOURS NEEDED aspirin 81 mg tablet,delayed release (DR/EC) 81 mg PO DAILY Hold Instructions: Resume on 06/22/25. discuss with PCP Patient Comments: TAKE ONE TABLET BY MOUTH EVERY DAY insulin glargine [Basaglar KwikPen U-100 Insulin] 100 unit/mL (3 mL) insulin pen 30 unit SUBCUT QPM Hold Instructions: Resume on 06/15/25. discuss dosing adjustment with PC- on d/c from [facility] only take 5 units SC at HS Patient Comments: INJECT 60 UNITS SUBCUTANEOUSLY ONCE DAILY (30 UNITS EVERY MORNING AND 30 UNITS QPM) lisinopril 2.5 mg tablet 2.5 mg PO DAILY Hold Instructions: Resume on 06/21/25. Patient Comments: pt states that she has been taking 0.5 of 2.5mg pill (1.25mg) due to orthostatic reaction, PCP notified but order has not been changed Discharge Instructions Referrals: Jeny Almonte [Primary Care Provider, Medicine] Referral Note: follow-up with 7 days of discharge Activity:: Activity as Tolerated Equipment/Supplies:: Walker Diet:: heart healthy diabetic - liberal fluid DS: Summary Time Spent with Patient providing and/or coordinating discharge services: Greater than 30 minutes Status at Discharge Functional status at discharge: uses cane/walker Overall status at discharge: patient is not back to baseline Mental Status: mental status grossly normal Speech and Movement: speech and movement normal Mood: congruent mood Affect: anxious affect and other (non-cooperative to treatment ) Quality:SDOH Health Related Social Needs: Health related social needs material hardship Health related social needs details Pt declines any assistance or services at this time. Health related social needs details: Pt declines any assistance or services at this time. Exam Narrative Exam Narrative: Alert and oriented X3, no dizziness , no acute necrological deficits, unlabored breathing clear lungs, S1, S2 regular heart rate and rhythm, abdomen is non-distended , soft and non-tender, no CVA tenderness, improved pain to 11th left rib pain moves all 4 extremities, Psych Mental Status: mental status grossly normal Speech and Movement: speech and movement normal Mood: congruent mood Affect: anxious affect and other (non-cooperative to treatment ) DS: Data Vitals/I&O Vitals and I&O: Vital Signs Temperature 36.0 C L 06/09/25 07:26 Temperature Source Temporal Artery Scan 06/09/25 07:26 Pulse 101 H 06/09/25 09:17 Pulse Rhythm Regular 06/07/25 01:10 Pulse 88 06/07/25 00:40 Respiratory Rate 17 06/09/25 07:26 Respiratory Effort Normal, Non-Labored 06/07/25 01:10 Respiratory Depth Normal 06/07/25 01:10 Respiratory Pattern Normal 06/07/25 01:10 Blood Pressure 117/77 06/09/25 09:17 Blood Pressure Mean 97 06/09/25 07:26 Blood Pressure Position Supine 06/06/25 19:25 Pulse Oximetry 94 06/09/25 07:26 Oxygen Delivery Method Room Air 06/09/25 07:26 Oxygen Flow Rate 0 06/09/25 07:26 Pain Level 8 06/09/25 10:34 Comment with standing HR went to 145 for a short time 06/08/25 12:37 Intake & Output 06/08/25 06/08/25 06/09/25 11:59 23:59 11:59 Intake Total 50 / 2358.333 2308.333 / 2358.333 591.667 / 591.667 Output Total 350 / 1000 650 / 1000 925 / 925 Balance -300 / 1402.693 6263.333 / 1358.333 -333.333 / -333.333 Weight 85.2 kg Intake: IV 1718.333 / 1718.333 291.667 / 291.667 Oral 50 / 640 590 / 640 300 / 300 Output: Urine 350 / 1000 650 / 1000 925 / 925 Other: Urine Color Yellow Yellow Yellow Urine Appearance Clear Clear Urine Odor Normal Normal Comment pt. voids to toilet. Stool Size Small Stool Characteristics Formed Data Completed and Pending Labs on day of discharge: Labs from last 24 hours 06/09/25 06/08/25 10:17 11:30 WBC 6.53 6.07 RBC 3.21 L 2.95 L Hgb 10.3 L 9.5 L Hct 30.2 L 28.0 L MCV 94 95 MCH 32.1 32.2 MCHC 34.1 33.9 RDW 13.3 13.4 Plt Count 264 222 MPV 9.5 9.4 Immature Gran % 0.3 0.3 Neutrophils % 66.2 57.4 Lymphocytes % 22.1 28.3 Monocytes % 8.0 7.9 Eosinophils % 2.8 5.3 Basophils % 0.6 0.8 Nucleated RBC % 0.0 0.0 Absolute Neutrophils 4.33 3.48 Absolute Lymphocytes 1.44 1.72 Absolute Monocytes 0.52 0.48 Absolute Eosinophils 0.18 0.32 Absolute Basophils 0.04 0.05 Sodium 133 L 133 L Potassium 4.2 4.2 Chloride 99 99 Carbon Dioxide 23.8 25.2 Anion Gap 10.2 8.8 BUN 40 H 47 H Creatinine 2.0 H 2.2 H Est GFR (CKD-EPI 2020) 27.21 24.27 Glucose 118 H 122 H Hemoglobin A1c 5.7 Calcium 9.1 8.7 PFSH All Active Problems (Updated 06/08/25 @ 15:01 by Cheyenne Benson APRN) Orthostatic hypotension (Acute) Benzodiazepine dependence, episodic (Acute) Chronic back pain greater than 3 months duration (Acute) Opioid use disorder, moderate, dependence (Acute) Acute on chronic kidney failure (Acute) Musculoskeletal chest pain (Acute) Fall from ground level (Acute) Anticoagulated (Acute) Fall (Acute) Pain in rib (Acute) Hyperglycemia (Acute) Acute adrenal insufficiency (Acute) URI (upper respiratory infection) (Acute) Headache (Acute) Urinary tract infection (Acute) Atypical chest pain (Acute) Hypomagnesemia (Acute) COVID-19 (Acute) Coronary artery disease (Chronic) Chest pain (Acute) CAD (coronary atherosclerotic disease) (Acute) 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 (Acute) Primary osteoarthritis of both first carpometacarpal joints (Acute 12/22/17) Hypertension (Chronic) Insomnia (Acute) GERD (gastroesophageal reflux disease) (Chronic) Chronic kidney disease (Chronic) COPD (chronic obstructive pulmonary disease) (Chronic) Mixed anxiety depressive disorder (Acute) Medical History Fibromyalgia Panic disorder Mental disorder Pernicious anemia Proliferative retinopathy due to DM On salvage determiner drug therapy Epigastric pain Diarrhea Wheezing Dupuytren's disease of palm Low back pain CKD stage 3 due to type 2 diabetes mellitus Acute exacerbation of chronic obstructive airways disease Allergic rhinitis 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 Insomnia Surgical History H/O lumpectomy Hx of tubal ligation section x2. No complications. Coronary Stent Cholecystectomy Appendectomy Family History Brother Diabetes Hypertension Heart disease Stroke Obesity Chronic headaches Arthritis Brother Arthritis Chronic headaches Diabetes Heart disease Hypertension Obesity Stroke Father Heart disease Stroke Hypertension Chronic headaches Sister Diabetes Obesity Osteoporosis Daughter Migraine Obesity Brother Arthritis Diabetes Chronic headaches Hypertension Obesity Stroke Mother Asthma Arthritis Diabetes Obesity Stroke Glaucoma Social History Smoking/Tobacco Use Status: Former Tobacco Use Quit Date: 04/13/19 Pack-years: 45 Tobacco: How many years used: 45 Quit status: considering quitting Smoking risk assessment performed?: Yes Alcohol Intake: never Drug use: Never Substance use type: does not use Details: Quit smoking 6 years ago. Household members: friend(s) Housing: apartment Number of Children: 3 number of grandchildren: 14 current occupation: none What is your relationship status?: Panel score (0-1 are the most socially isolated patients): 0 What type of physical activity do you participate in: none Do you feel safe at home: Yes Do you feel safe in your relationship?: Yes Time Spent with Patient Time Spent with Patient: >85 minutes Time was spent: preparing to see the patient(eg.review tests), obtaining and/or reviewing separately otained hiistory, ordering medications,tests, procedures, referring, communicating with other health child care development specialist, indepentently interpreting results, counseling the patient, care coordination and other
--- NOTE | 2025-06-09 13:01 | PDOC.HHF2F ---
Date of service: 06/09/25 Time of Service: 13:01 Home Health Referral Home Health Orders Clinical synopsis of why skilled professionals are needed: 65 year old ferm[place] patient with a past medical history of non insulino dependent diabetes on Terzepatide,CAD with stents, depression with anxiety on duloxetine, bupropion and lorazepam, GERD , HTN opioid dependent chronic back pain presenting June 06 to the ED with worsening pain to her left back despite taking her chronic home opioid regimen, no head strike, not anticoagulated but on antiplatelet drug , reported dizziness and sweating d/t pain. She has had some dizziness and sweating due to the pain,BP 98/46 w/o tachycardia. Imaging was positive for findings of left -sided 11th rib fracture. Blood work showed no actionable findings except for ISA on CDK with Cr 1.9 from 1.5 last month; IVF bolus given in ED. The patient was admitted for observation for pain management, ISA on CKD and physical therapy. The patient subsequently found have worsening ISA on CKD with symptomatic orthostasis not resolve with IV crystalloid bolus necessitating inpatient admission. Lisinopril, isosorbide lisinopril and cyclobenzaprine held. Overnight the patient refused her IVF but Cr is trending down; the patient still showing orthostasis but is no longer symptomatic. This morning the patient is dressed,siting in chair and requesting to go home. Patient mentioned gaining weight from fluid during stay and anxious about getting her GLP-1( half-life 120 hours) . Patient educated on GLP-1 side effect that could cause a decreased in enteral intake including fluids. Patient counseled in discussing resumption of GLP-1 with PCP and to continue to monitor her blood sugars 4 times a day; A1 5.7. The patient will be discharged home with home health PT and nursing. Follow-up with PCP within 7 days of discharge please. Discussed with Dr. Hill. Recommendations for Follow Up Recommended tests to be ordered by follow up provider: GLP-1 , nutrition consult , BMP Registered Nurse: Check all that apply Instruct on new or changed medication(s)/assess compliance: Ordered Assess for exacerbation of medical condition, instruct patient/caregivers on signs and symptoms to report for early detection: Ordered Other: BP monitoring , oral fluid intake monitoring Physical Therapist: Check all that apply Increase strength & endurance for safe mobility at home: Ordered To design/establish home maintenance program: Ordered Fall reduction therapy program for patient with history of frequent falls: Ordered Home safety evaluation and teaching/gait training including stair management (if applicable): Ordered Home Bound Status Requires the aid of supportive device (check all that apply): Walker Describe why leaving home would require a considerable and taxing effort: Requires frequent rest periods Encounter Date and Reason: I certify that a FTF encounter for this patient was performed on June 09, 2025 and that such encounter was related to the primary reason the patient requires home health services. The encounter was conducted in the following manner: By me as the certifying physician, STEAK TENDERIZER MACHINE, PA or By an inpatient physician, STEAK TENDERIZER MACHINE or PA during an inpatient stay who communicated findings to me, Certification And Authentication I certify that I composed the above information based on my clinical judgment relating to this patient's medical condition and, if applicable, clinical findings communicated to me by the NPP or inpatient physician who performed the FTF encounter. Name of Provider that will be monitoring home health services: Jeny Almonte
--- NOTE | 2025-06-09 13:22 | PT.INTREAT ---
PT Notes Visit Reasons: Rib Fractures Inpatient Physical Therapy Treatment Note [facility] Date: 06/09/2025 PRECAUTIONS:Fall Risk SUBJECTIVE: Pt reports she has been asking for Ativan but has not received it (RN notified and med given) OBJECTIVE: Pt approached in am she stated she had been out of bed since 6 am and just got back to bed( 10 am)She refused to participate at that time but was willing to participate anytime after 1230. Pt agreeable at 1250 ? PAIN: 2/10 ribs and back VITALS: ?monitored by Nursing Therapeutic Activities ([id number][]): Direct one-on-one instruction in dynamic activities to improve functional performance. ? BED MOBILITY/TRANSFERS? Rolling L/R: independent with use of rail Supine-sit: Supervision via sidelying ? Sit-supine: Supervision for LEs? Sit-stand: SBA and cues for hands ? Stand-sit: SBA and cues for hands? Bed-toilet: step turn with FWW SBA and increased time for LE advancement? Facilitated safe and correct performance of level surface ambulation covering a distance of 100 feet using use front wheeled walker with stand by assist and wheelchair follow for safety. Did not report of any increased pain. Denied headache, chest pain, and lightheadedness throughout activity. Minimal verbal cueing provided for AD management, directional changes, and posture. ASSESSMENT:? Pt demonstrated significant improvement in functional mobility with FWW this session. She able to ambulate household distances safely. Pt able to perform toilet hygiene and clothing management independently. PLAN: continue per POC TREATMENT CODE/TIME: 64958/[id number] DISCHARGE RECOMMENDATION: Home with HHPT
[2025-06-09] MEDS: LORazepam 0.5 MG TAB PO (13:29)
--- NOTE | 2025-06-09 17:59 | CMDISCH_ITS ---
Date of service: 06/09/25 Time of Service: 17:59 LACE Index Scoring Tool Questions: Length of Stay (in days): 3 Was the patient admitted via the E.D.?: Yes Comorbidities: Diabetes w/o Complication, Chronic Pulmonary Disease and Liver or Renal Disease E.D. Visits: 3 Answers: Total Score: 14 Risk of Readmission: High Risk Care Management Discharge Plan Reason for Hospitalization: Rib Fractures Discharge Plan: Nimisha returned home today with new orders for HH RN and PT. Nimisha was sitting up on the edge of her bed when CM met with her. She expressed some concern about discharging home today. She stated that she is concerned about her kidney function and her balance. She stated that she has chronic kidney disease, and doesn't want this to get worse, if she leaves too soon. CM discussed this with her RN and provider, who stated that her labs have improved overnight, and she is safe for discharge home with close follow up by her PCP. Niimsha stated that she has a very good relationship with her PCP, and will call and make an appointment. CM inquired about Nimisha's progress with PT; she stated that she is walking better and farther than she does at home normally. Nimisha stated that she has a lot of anxiety surrounding her medical concerns, but was provided with her home anxiety medication, which made her feel much better and more comfortable with discharge. Nimisha stated that she is not willing to have HH, as she had a bad experience with them, and no longer has interest in their support. CM suggested that she give HH another chance, as she may have a better outcome. CM contacted Nimisha's daughter, Denae, answered her questions, and informed her of her mother's discharge. Nimisha's roommate Yesenia drove her home via private vehicle. She will follow up with her PCP and discharge plan of care. Patient/Family Education Needs: Review discharge instructions and limitations, discussion of self care needs including ask me three. Services Needed at Discharge: Home Health Care Services (new HH RN, PT; unsure if pt will accept this service) SDOH Health Related Social Needs: Health related social needs transpo insecurity lonely/ isolated Health related social needs details Pt declines any as sistance or services at this time. Health related social needs details: Pt declines any assistance or services at this time.
== END 2025-06-09 14:50 | disposition home health service (06) | DRG 206 ==
LOC: ER 23:47 → MS 06-07 00:53
PROVIDERS: Admitting Provider Family Medicine; Emergency Provider Student in an Organized Health Care Education/Training Program; PCP Nurse Practitioner Family; Responsible Provider Nurse Practitioner Acute Care; Visit Provider Family Medicine
DX: S22.32XA Fracture of one rib, left side, initial encounter for closed fracture (principal); F11.20 Opioid dependence, uncomplicated; F13.20 Sedative, hypnotic or anxiolytic dependence, uncomplicated; N18.4 Chronic kidney disease, stage 4 (severe); N17.9 Acute kidney failure, unspecified; I25.119 Atherosclerotic heart disease of native coronary artery with unspecified angina pectoris; K21.9 Gastro-esophageal reflux disease without esophagitis; G89.29 Other chronic pain; I95.1 Orthostatic hypotension; I12.9 Hypertensive chronic kidney disease with stage 1 through stage 4 chronic kidney disease, or unspecified chronic kidney disease; E10.22 Type 1 diabetes mellitus with diabetic chronic kidney disease; Z95.5 Presence of coronary angioplasty implant and graft; M54.9 Dorsalgia, unspecified; G47.00 Insomnia, unspecified; F41.0 Panic disorder [episodic paroxysmal anxiety]; F32.A Depression, unspecified; Z79.899 Other long term (current) drug therapy; D51.0 Vitamin B12 deficiency anemia due to intrinsic factor deficiency; E10.3599 Type 1 diabetes mellitus with proliferative diabetic 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 edema, unspecified eye; Z87.891 Personal history of nicotine dependence; E10.40 Type 1 diabetes mellitus with diabetic neuropathy, unspecified; W01.198A Fall on same level from slipping, tripping and stumbling with subsequent striking against other object, initial encounter
CPT/HCPCS: 00123; 36415; 74177; 80048; 80053; 83690; 96374; 97162; 97530; 99285; 70450; 71260; 72125; 83036; 83735; 85025; 85610; 85730; 99222; 99233; 99239; G0378; J1650; J1815; J2270; J3490

== ENCOUNTER → 2025-06-16 14:39 | Outpatient (BNVA) | payer MEDICARE, MEDICAID, SELFPAY | PROVIDERS: PCP Nurse Practitioner Family; Referring Provider Nurse Practitioner Family; Visit Provider Student in an Organized Health Care Education/Training Program | DX: M16.11 Unilateral primary osteoarthritis, right hip (principal) | CPT/HCPCS: 99214; 20611; J1010 ==

== ENCOUNTER 2025-06-19 22:47 | Emergency (ER) | payer MEDICARE, MEDICAID, SELFPAY ==
[2025-06-19] VITALS (11 sets, daily range): BP systolic 126–148; BP diastolic 66–83; PULSE 108–112; RESP 13–22; TEMP 36.5; O2SAT 94–98
--- NOTE | 2025-06-19 22:45 | RT.EKG_ITS ---
APPROVED REPORT Exam: Resting ECG Reason for Exam: Rapid HR Patient Location: E HR:116 bpm ECG Measurements Heart Rate 116 AXIS MS 175 P 62 QRSd 77 QRS 119 QT 342 T 22 QTc 476 Conclusion Sinus tachycardia...rate> 99 Right axis deviation...QRS axis ( 91,269) Low voltage, precordial leads...precordial leads <1.0mV Physician : no stemi
--- NOTE | 2025-06-19 22:45 | DI.CT_ITS ---
Exam(s) CT CHEST/ABD/PEL WO EXAM: CT CHEST/ABD/PEL WO CLINICAL HISTORY: epigastric and central chest pain, CKD, Vomiting TECHNIQUE: Imaging Protocol: Axial computed tomography images with coronal and sagittal reformatted images were created and reviewed. Computer aided detection (CAD) was utilized. COMPARISON: CT CT ABDOMEN PELVIS WO from 02/05/[address] CHEST PE CTA from 06/25/[address] CHEST/ABD/PEL W from 06/06/2025 FINDINGS: CHEST: Tracheobronchial tree: Patent where visualized. No bronchiectasis. Pulmonary parenchyma: Stable septal thickening and ground-glass opacities. There are no new infiltrates present. There are no suspicious pulmonary nodules. Mediastinum and Gisela: No dominant adenopathy or fluid collection. The esophagus is unremarkable. Thyroid gland: Unremarkable. Pleura: No effusion or pneumothorax. Heart: The heart is not dilated. Coronary artery calcifications are present. No pericardial effusion. Aorta: Thoracic aorta non-dilated. Atherosclerotic calcification is present. Note is again made of an aberrant right subclavian artery. Lymph nodes: Within normal limits. Bones:Within normal limits for the patient's age. Soft tissues: Unremarkable. ABDOMEN: Liver: Normal density. No measurable mass. Gallbladder and Biliary Tract: Status post cholecystectomy. There is no significant biliary ductal dilatation. Pancreas: Normal density, no abnormal calcifications or inflammatory process. Spleen: Normal. Adrenals: No masses seen. Kidneys: Normal size, contour and axis. No radiodense stones or obstructive uropathy. No masses seen. Abdominal Aorta: Abdominal portion non-dilated. Atherosclerotic calcification is present. Bowel: There is diverticulosis of the colon without evidence of acute diverticulitis. There is no evidence of bowel obstruction or bowel wall thickening. No evidence of appendicitis is present. Peritoneal Cavity: No ascites, collection or mesenteric inflammatory response. No free air. Lymph Nodes: Within normal limits. Bones: Within normal limits for the patient's age. Soft Tissues: Unremarkable. PELVIS: Bladder: Symmetric distention, no gross wall thickening. Reproductive Organs: Unremarkable as visualized. Lymph Nodes: Within normal limits. Bones: Within normal limits for the patient's age. IMPRESSION: 1. Stable pulmonary fibrosis. 2. No acute pulmonary process. 3. No acute abdominal or pelvic process. 4. Colonic diverticulosis without evidence of acute diverticulitis. 5. The preliminary [facility] report was reviewed. RADIATION DOSE DELIVERED: 526.88mGy.cm Total DLP 526.88mGy.cm Total DLP 526.88mGy.cm Total DLP 526.88mGy.cm Total DLP DATA REPOSITORY: All CT scans at this facility are submitted to the National Radiology Data Registry (NRDR) Dose Index Registry (DIR) with the [employer] ([employer]). RADIATION OPTIMIZATION: All CT scans at this facility use at least one of these dose optimization techniques: automated exposure control; mA and/or kV adjustment per patient size (includes targeted exams where dose is matched to clinical indication); or iterative reconstruction.
--- NOTE | 2025-06-19 23:16 | W.ED.GENAD ---
Discharge Plan Disposition Patient Disposition: Home Condition: Good Discharge Details Clinical Impression: Nausea & vomiting, Epigastric discomfort Primary Care Provider: Jeny Almonte ED Provider: Burton Rivera Home Meds and New Rx's Prescriptions: No Action nystatin 100,000 unit/mL Suspension 5 ml PO QID PRN PRN naloxone [Narcan] 4 mg/actuation [place],Non-Aerosol 4 mg INTRANASAL PRN PRN benzonatate 100 mg capsule 100 mg PO TID PRN (Reason: cough) Qty: 14 0RF (DME) rolling walker with seat Qty: 1 0RF Rx Instructions: As directed with ambulation insulin aspart U-100 [Novolog FlexPen U-100 Insulin] 300 UNITS/3 ML insulin pen 2 - 20 units Sub-Q 0800,1200,1700 Rx Instructions: Dispense one pen see sliding scale bupropion HCl 150 mg tablet sustained-release 12 hr 1 tab PO BID Patient Comments: TAKE ONE TABLET BY MOUTH TWICE A DAY lorazepam 0.5 mg tablet 0.5 mg PO BID PRN Patient Comments: TAKE ONE TABLET BY MOUTH EVERY 6 HOURS NEEDED FOR ANXIETY dexlansoprazole [Dexilant] 30 mg capsule,biphase delayed releas 30 mg PO DAILY Patient Comments: pt takes in the morning isosorbide dinitrate 30 mg tablet 30 mg PO DAILY Patient Comments: TAKE ONE TABLET BY MOUTH EVERY DAY duloxetine 30 mg capsule,delayed release(DR/EC) 30 mg PO HS Patient Comments: TAKE ONE CAPSULE BY MOUTH EVERY DAY Mounjaro 10 mg/0.5 mL pen injector 10 mg SUBCUT .weekly Patient Comments: INJECT 10MG SUBCUTANEOUSLY EVERY WEEK, ROTATE INJECTION SITES nitroglycerin [Nitrostat] 0.4 MG tablet, sublingual 0.4 mg Sublingual PRN PRN cyclobenzaprine 10 mg tablet 10 mg PO Q8H PRN PRN hydrocodone-acetaminophen 5-325 mg tablet 1 tab PO Q8H PRN PRN Patient Comments: TAKE ONE TABLET BY MOUTH EVERY 6 TO 8 HOURS NEEDED aspirin 81 mg tablet,delayed release (DR/EC) 81 mg PO DAILY Patient Comments: TAKE ONE TABLET BY MOUTH EVERY DAY fluticasone propionate 50 mcg/actuation spray,suspension 1 spray INTRANASAL DAILY Patient Comments: INSTILL 2 SPRAYS NASALLY DAILY duloxetine 60 mg capsule,delayed release(DR/EC) 60 mg PO .COMPLEX Patient Comments: 60mg am 30mg HS Rx Instructions: 60mg daily in am. 30mg HS dexlansoprazole [Dexilant] 60 mg capsule,biphase delayed releas 60 mg PO DAILY Patient Comments: takes at night docusate sodium 250 mg Capsule 250 mg PO HS PRN insulin glargine [Basaglar KwikPen U-100 Insulin] 100 unit/mL (3 mL) insulin pen 30 unit SUBCUT QPM Patient Comments: INJECT 60 UNITS SUBCUTANEOUSLY ONCE DAILY (30 UNITS EVERY MORNING AND 30 UNITS QPM) cholecalciferol (vitamin D3) [Vitamin D3] 25 mcg (1,000 unit) capsule 1,000 unit PO DAILY Patient Comments: no longer taking 05/19/23 MG lidocaine [Lidoderm] 5 % adhesive patch,medicated 1 patch topical DAILY PRNQty: 15 0RF Rx Instructions: leave on most painful area for up to 12 hrs atorvastatin 80 mg tablet 40 mg PO BID Patient Comments: TAKE ONE TABLET AB BY MOUTH DAILY (cuts tab in half, takes morning and night to reduce side effects) clopidogrel 75 mg tablet 75 mg PO DAILY Patient Comments: TAKE ONE TABLET AB BY MOUTH DAILY magnesium oxide 400 mg (241.3 mg magnesium) tablet 400 mg PO BID lisinopril 2.5 mg tablet 2.5 mg PO DAILY Patient Comments: pt states that she has been taking 0.5 of 2.5mg pill (1.25mg) due to orthostatic reaction, PCP notified but order has not been changed acetaminophen 500 mg Tablet 1,000 mg PO Q8H Qty: 30 0RF Rx Instructions: Then resume your home pain medicine as ordered by your outpatient provider pantoprazole 40 mg Tablet,Delayed Release (Dr/Ec) 40 mg PO DAILY@0730 Qty: 30 0RF oxycodone 5 mg tablet 5 mg PO Q8H PRNQty: 15 0RF Rx Instructions: Do not take your home hydrocodone and acetaminophen while on this Discharge Instructions Instructions: Nausea and Vomiting, Adult ED Additional Instructions: At this time the CT scan of your chest and abdomen showed no significant abnormality. Your repeated cardiac and heart markers are normal. Your blood work has improved in comparison to your last admission. There is no evidence of pancreatitis or other significant abnormality. If you notice any worsening of your symptoms, or any new symptoms such as vomiting, diarrhea, fever, chills, shortness of breath, chest pain, numbness, weakness, or fainting , please return immediately to the emergency department for reevaluation. Please follow up with your primary care provider as soon as possible for reassessment and reevaluation. As always, it was a pleasure participating in your medical care today. Referrals: Jeny Almonte [Primary Care Provider, Medicine] HPI General Date/Time Provider Initiated Documentation: 06/19/25 23:16. HPI Narrative: This is a 65-year-old female with past medical history of fibromyalgia, PTSD, diabetes mellitus, chronic kidney disease, coronary artery disease with stenting, depression, GERD, hypertension, chronic back pain on chronic opiates, mixed anxiety/depressive disorder, who presents today for evaluation of nausea chest discomfort and vomiting. Patient states that at dinnertime she developed a sour stomach which she describes as a bulging pressure/sensation in her chest. She had an episode of vomiting once EMS was called. She admits to nausea and some dry heaving. She denies any pain in the lower stomach. She denies any blood in her vomitus. She denies any tearing or ripping sensation. She also noted that her heart rate was elevated at home which was part of her reason for calling EMS. No other complaints at this time. No other modifying factors. Additionally the patient was recently admitted for an ISA, as well as a rib fracture with subsequent discharge on 06/09/2025 Related Data Home Medications ?Medication ?Instructions ?Recorded ?Confirmed nitroglycerin 0.4 mg sublingual 0.4 mg sublingual PRN PRN 06/01/17 06/19/25 tablet (Nitrostat) naloxone 4 mg/actuation nasal 4 mg intranasal PRN PRN 09/10/19 06/19/25 spray (Narcan) nystatin 100,000 unit/mL oral 5 ml PO QID PRN PRN 09/10/19 06/19/25 suspension rolling walker with seat #1 ea 01/12/20 06/19/25 aspirin 81 mg tablet,delayed 81 mg PO DAILY 06/24/20 06/19/25 release cyclobenzaprine 10 mg tablet 10 mg PO Q8H PRN PRN 06/24/20 06/19/25 dexlansoprazole 60 mg 60 mg PO DAILY 06/24/20 06/19/25 capsule,biphase delayed release (Dexilant) duloxetine 60 mg capsule,delayed 60 mg PO .COMPLEX 06/24/20 06/19/25 release fluticasone propionate 50 1 spray intranasal DAILY 06/24/20 06/19/25 mcg/actuation nasal spray,suspension hydrocodone 5 mg-acetaminophen 325 1 tab PO Q8H PRN PRN 06/24/20 06/19/25 mg tablet docusate sodium 250 mg capsule 250 mg PO HS PRN 07/16/20 06/19/25 insulin aspart U-100 100 unit/mL 2 - 20 units subcut 0800,1200,1700 11/15/20 06/19/25 (3 mL) subcutaneous pen (Novolog FlexPen U-100 Insulin aspart) bupropion HCl 150 mg tablet,12 hr 1 tab PO BID 02/07/22 06/19/25 sustained-release insulin glargine 100 unit/mL (3 30 unit subcut QPM 02/10/22 06/19/25 mL) subcutaneous pen (Basaglar KwikPen U-100 Insulin) Held on 06/08/25. Instructions: Resume on 06/15/25. discuss dosing adjustment with PC- on d/c from [facility] only take 5 units SC at HS cholecalciferol (vitamin D3) 25 1,000 unit PO DAILY 02/20/23 06/19/25 mcg (1,000 unit) capsule (Vitamin D3) lidocaine 5 % topical patch 1 patch topical DAILY PRN #15 ea 02/20/23 06/19/25 (Lidoderm) lorazepam 0.5 mg tablet 0.5 mg PO BID PRN 06/25/23 06/19/25 atorvastatin 80 mg tablet 40 mg PO BID 07/24/23 06/19/25 clopidogrel 75 mg tablet 75 mg PO DAILY 09/07/23 06/19/25 magnesium oxide 400 mg (241.3 mg 400 mg PO BID 09/07/23 06/19/25 magnesium) tablet lisinopril 2.5 mg tablet 2.5 mg PO DAILY 09/17/23 06/19/25 dexlansoprazole 30 mg 30 mg PO DAILY 04/20/24 06/19/25 capsule,biphase delayed release (Dexilant) isosorbide dinitrate 30 mg tablet 30 mg PO DAILY 04/20/24 06/19/25 duloxetine 30 mg capsule,delayed 30 mg PO HS 04/07/25 06/19/25 release tirzepatide 10 mg/0.5 mL 10 mg subcut .weekly 04/07/25 06/19/25 subcutaneous pen injector (Krisesdrasdonte) benzonatate 100 mg capsule 100 mg PO TID PRN cough #14 caps 04/12/25 06/19/25 acetaminophen 500 mg tablet 1,000 mg (2 x 500 mg) PO Q8H #30 06/08/25 06/19/25 tabs pantoprazole 40 mg tablet,delayed 40 mg PO DAILY@0730 #30 tabs 06/08/25 06/19/25 release oxycodone 5 mg tablet 5 mg PO Q8H PRN #15 tabs 06/09/25 06/19/25 Previous Rx's ?Medication ?Instructions ?Recorded rolling walker with seat #1 ea 01/12/20 lidocaine 5 % topical patch 1 patch topical DAILY PRN #15 ea 02/20/23 (Lidoderm) benzonatate 100 mg capsule 100 mg PO TID PRN cough #14 caps 04/12/25 acetaminophen 500 mg tablet 1,000 mg (2 x 500 mg) PO Q8H #30 06/08/25 tabs pantoprazole 40 mg tablet,delayed 40 mg PO DAILY@0730 #30 tabs 06/08/25 release oxycodone 5 mg tablet 5 mg PO Q8H PRN #15 tabs 06/09/25 Allergies Allergy/AdvReac Type Severity Reaction Status Date / Time Penicillins Allergy Contraindic Unverified 06/16/25 14:43 ated Sulfa (Sulfonamide Allergy Contraindic Unverified 06/16/25 14:43 Antibiotics) ated exenatide (From [place]) AdvReac Intermediate diarrhea Unverified 06/16/25 14:43 metformin AdvReac Intermediate diarrhea Unverified 06/16/25 14:43 quetiapine (From Seroquel) AdvReac Intermediate Nausea Unverified 06/16/25 14:43 amitriptyline AdvReac made my Unverified 06/16/25 14:43 face go numb amoxicillin trihydrate (From AdvReac acute Unverified 06/16/25 14:43 Augmentin) kidney failure NSAIDS (Non-Steroidal AdvReac stage III Unverified 06/16/25 14:43 Anti-Inflamma kidney disease potassium clavulanate (From AdvReac acute Unverified 06/16/25 14:43 Augmentin) kidney failure General Stated Complaint: Palpitatns SADE: 3 Exam Narrative Exam Narrative: 1.Const: Well-nourished, Well-developed, appearing stated age 2.Eyes: PERRL, no conjunctival injection, and symmetrical lids. 3.ENT: Atraumatic external nose and ears. Dry MM. Neck: Symmetric, trachea midline, No thyromegaly. 4.CVS: +S1/S2, Peripheral pulses 2+ and equal in all extremities. Brisk capillary refill in all extremities. 5.RESP: Unlabored respiratory effort. Clear to auscultation bilaterally. No wheezes rales or rhonchi 6.GI: Soft, mild epigastric tenderness on palpation. Mild borderline rib tenderness. 7.MSK: Normocephalic/Atraumatic, Extremities w/o deformity or ttp No cyanosis or clubbing, Normal movement of all extremities. Mild tenderness over the left anterior rib. 8.Skin: Warm, Dry. No rashes or lesions. 9.Neuro: orthodontist II-XII grossly intact. Sensation grossly intact, no focal neurologic deficits. 10.Psych: (AAO) x3. Appropriate mood and affect Course Vital Signs Vital signs: Vital Signs Temperature 36.5 C 06/19/25 22:51 Pulse 112 H 06/19/25 22:51 Respiratory Rate 18 06/19/25 22:51 Blood Pressure 147/82 H 06/19/25 22:51 Pulse Oximetry 98 06/19/25 22:51 Temperature 36.5 C 06/19/25 22:51 Temperature Source Oral 06/19/25 22:51 Pulse 112 H 06/19/25 22:51 Respiratory Rate 18 06/19/25 22:51 Blood Pressure 147/82 H 06/19/25 22:51 Blood Pressure Position Sitting 06/19/25 22:51 Pulse Oximetry 98 06/19/25 22:51 Oxygen Delivery Method Room Air 06/19/25 22:51 Oxygen Flow Rate 0 06/19/25 22:51 Comment pain is not bad 06/19/25 22:51 Medical Decision Making This is a 65-year-old female with past medical history of diabetes mellitus, chronic kidney disease, coronary artery disease with stenting, depression, GERD, hypertension, chronic back pain on chronic opiates, mixed anxiety/depressive disorder, who presents today for evaluation of nausea chest discomfort and vomiting. Patient states that at dinnertime she developed a sour stomach which she describes as a bulging pressure/sensation in her chest. She had an episode of vomiting once EMS was called. She admits to nausea and some dry heaving. She denies any pain in the lower stomach. She denies any blood in her vomitus. She denies any tearing or ripping sensation. She also noted that her heart rate was elevated at home which was part of her reason for calling EMS. No other complaints at this time. No other modifying factors. Additionally the patient was recently admitted for an ISA, as well as a rib fracture with subsequent discharge on 06/09/2025 exam demonstrates stable female, mild tachycardia, dry mucous membranes, mild epigastric discomfort. Differential is broad but includes pancreatitis secondary to her Mounjaro injectable, gastric irritation, less likely cardiac etiology. EKG is stable and shows no evidence of STEMI. We will gently rehydrate, give antiemetics, get CT imaging, monitor closely and reassess. 1:[address] scan results have returned with no abnormalities acutely for chest abdomen or pelvis. Laboratory workup returns with serial stable troponins within normal limits, heart rate stable throughout visit. No white count bandemia or left shift, normal lactate normal electrolytes. Renal function improved compared to patient's prior function at recent admission. Lipase normal. On reassessment patient's symptoms have resolved. No vomiting, no nausea, no chest pain, no chest pressure. EKG stable, serial troponins normal, no evidence to suggest ACS or NSTEMI. Suspect mild potential gastroenteritis that could have brought about her symptoms worse from something that she ate. Otherwise there is no evidence at this time clinically to suggest significant cardiac etiology. Patient feels well and would like to go home. Patient will be discharged. Discussed red flags for which to return. I have extensively reviewed the treatment plan and discharge instructions with the patient. I have addressed all patient concerns at this time. The patient was made aware of what symptoms to monitor for that would warrant a return to the emergency department. Discussed the plan with the patient, they demonstrate verbal understanding and agreement with our assessment and plan at this time. The documentation in this chart was dictated using [employer] dictation software. Please excuse any dictation errors. FINDINGS: Lungs: There is peripheral interlobular septal thickening throughout the lungs consistent with moderate fibrotic change. There is mild traction bronchiectasis at the bilateral lung bases. No acute focal pulmonary consolidation. Pleural spaces: No pleural effusion or pneumothorax. Heart: Heart is normal size. No pericardial effusion. Coronary arteries: There are moderate atheromatous coronary artery calcifications. Lymph nodes: No enlarged lymph nodes. Vasculature: Atheromatous calcifications are present within the visualized thoracic aorta. 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 Bones/joints: Bones have a normal appearance. No acute fracture or suspicious bone lesion. Soft tissues: Unremarkable. IMPRESSION: No acute pulmonary findings. Pulmonary fibrosis as above. FINDINGS: Liver: The liver has a normal appearance. Gallbladder and biliary ducts: The gallbladder is surgically absent. Pancreas: The pancreas is atrophic. Spleen: The spleen demonstrates normal size. Adrenal glands: The adrenal glands have a normal appearance. Kidneys and ureters: The kidneys are normal in size. There is mild bilateral perinephric fat stranding. No hydronephrosis. No hydroureter or ureterolithiasis. Stomach and bowel: The bowel demonstrates overall normal caliber and wall thickness. Appendix: The appendix is not visualized and clips are noted in the region of the cecum suggesting prior appendectomy. Intraperitoneal space: Unremarkable. No free air. No significant fluid collection. Vasculature: There are scattered atheromatous calcifications throughout the aorta and iliac arteries. Lymph nodes: No enlarged lymph nodes. Urinary bladder: The bladder is thin walled and fluid filled. Reproductive: The uterus has a normal appearance. Bones/joints: Bones have a normal appearance. No acute fracture or suspicious bone lesion. Soft tissues: Unremarkable. IMPRESSION: No acute intra-abdominal findings. Quality:SDOH Health Related Social Needs: Health related social needs transpo insecurity lonely/isolated Health related social needs details Pt declines any assistance or services at this time. PFSH All Active Problems (Updated 06/20/25 @ 01:26 by Burton Rivera DO) Epigastric discomfort (Acute) Nausea & vomiting (Acute) Osteoarthritis of right hip (Acute) Orthostatic hypotension (Acute) Benzodiazepine dependence, episodic (Acute) Chronic back pain greater than 3 months duration (Acute) Opioid use disorder, moderate, dependence (Acute) Musculoskeletal chest pain (Acute) Anticoagulated (Acute) Fall (Acute) Pain in rib (Acute) Hyperglycemia (Acute) Acute adrenal insufficiency (Acute) URI (upper respiratory infection) (Acute) Headache (Acute) Urinary tract infection (Acute) Atypical chest pain (Acute) Hypomagnesemia (Acute) COVID-19 (Acute) Coronary artery disease (Chronic) Chest pain (Acute) CAD (coronary atherosclerotic disease) (Acute) 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 (Acute) Primary osteoarthritis of both first carpometacarpal joints (Acute 12/22/17) Hypertension (Chronic) Insomnia (Acute) GERD (gastroesophageal reflux disease) (Chronic) Chronic kidney disease (Chronic) COPD (chronic obstructive pulmonary disease) (Chronic) Mixed anxiety depressive disorder (Acute) Medical History Fibromyalgia Panic disorder Mental disorder Pernicious anemia Proliferative retinopathy due to DM On medical terminologist drug therapy Epigastric pain Diarrhea Wheezing Dupuytren's disease of palm Low back pain CKD stage 3 due to type 2 diabetes mellitus Acute exacerbation of chronic obstructive airways disease Allergic rhinitis 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 Insomnia Surgical History H/O lumpectomy Hx of tubal ligation section x2. No complications. Coronary Stent Cholecystectomy Appendectomy Family History Brother Diabetes Hypertension Heart disease Stroke Obesity Chronic headaches Arthritis Brother Arthritis Chronic headaches Diabetes Heart disease Hypertension Obesity Stroke Father Heart disease Stroke Hypertension Chronic headaches Sister Diabetes Obesity Osteoporosis Daughter Migraine Obesity Brother Arthritis Diabetes Chronic headaches Hypertension Obesity Stroke Mother Asthma Arthritis Diabetes Obesity Stroke Glaucoma Social History Smoking/Tobacco Use Status: Former Tobacco Use Quit Date: 04/13/19 Pack-years: 45 Tobacco: How many years used: 45 Quit status: considering quitting Smoking risk assessment performed?: Yes Alcohol Intake: never Drug use: Never Substance use type: does not use Details: Quit smoking 6 years ago. Household members: friend(s) Housing: apartment Number of Children: 3 number of grandchildren: 14 current occupation: none What is your relationship status?: Panel score (0-1 are the most socially isolated patients): 0 What type of physical activity do you participate in: none Do you feel safe at home: Yes Do you feel safe in your relationship?: Yes
[2025-06-19] MEDS: Ondansetron 4 MG/2 ML VIAL IVP (23:45)
[2025-06-19] MEDS: Normal Saline 500 ML IV (23:46)
[2025-06-19 23:51] LABS: Abs Immature Grans 0.05 10^3/uL (0.0-0.06); HCT 31.3 % (36.0-46.0); HGB 10.6 g/dL (11.2-15.7); Immature Grans % 0.6 %; MCH 31.8 pg (27.0-33.0); MCHC 33.9 % (32.0-36.0); MCV 94 fL (80-95); MPV 9.3 fL (8.0-11.0); Platelet Count 325 10^3/uL (130-400); RBC 3.33 10^6/uL (3.93-5.22); RDW 13.3 % (11.7-14.6); RDW-SD 45.5 fL; WBC 8.40 10^3/uL (4.4-10.8)
[2025-06-20] VITALS (11 sets, daily range): BP systolic 146; BP diastolic 66–69; PULSE 104–112; RESP 17–30; O2SAT 92–98
[2025-06-20 00:08] LABS: ALT 22 U/L (14-59); AST 17 U/L (15-37); Albumin 3.2 g/dL (3.4-5.0); Alkaline Phosphatase 82 U/L (46-116); Anion Gap 14.1 mmol/L (3-11); BUN 19 mg/dL (7-18); Bilirubin, Total 0.5 mg/dL (0.2-1.0); CO2 24.9 mmol/L (21.0-32.0); Calcium 9.4 mg/dL (8.5-10.1); Chloride 98 mmol/L (98-107); Estimated GFR 38.43 (mL/min/1.73m2); Glucose 183 mg/dL (74-106); Lipase 18 U/L (<78); Potassium 4.0 mmol/L (3.5-5.1); Sodium 137 mmol/L (136-145); Total Protein 6.9 g/dL (6.4-8.2); Troponin I 10 ng/L (<or=51)
--- NOTE | 2025-06-20 00:16 | DI.VRAD_ITS ---
PROCEDURE INFORMATION: Exam: CT Chest Without Contrast; Diagnostic Exam date and time: 06/19/2025 11:15 PM Age: 65 years old Clinical indication: Abdominal pain; Prior surgery; Surgery date: 6+ months; Surgery type: Cholecystectomy, appendectomy, tubal ligation; Epigastric and central chest pain, ckd, vomiting TECHNIQUE: Imaging protocol: Diagnostic computed tomography of the chest without contrast. 3D rendering (Not supervised by radiologist): MIP and/or 3D reconstructed images were created by the technologist. Radiation optimization: All CT scans at this facility use at least one of these dose optimization techniques: automated exposure control; mA and/or kV adjustment per patient size (includes targeted exams where dose is matched to clinical indication); or iterative reconstruction. COMPARISON: CT CHEST/ABD/PEL W 06/06/2025 9:05 PM FINDINGS: Lungs: There is peripheral interlobular septal thickening throughout the lungs consistent with moderate fibrotic change. There is mild traction bronchiectasis at the bilateral lung bases. No acute focal pulmonary consolidation. Pleural spaces: No pleural effusion or pneumothorax. Heart: Heart is normal size. No pericardial effusion. Coronary arteries: There are moderate atheromatous coronary artery calcifications. Lymph nodes: No enlarged lymph nodes. Vasculature: Atheromatous calcifications are present within the visualized thoracic aorta. 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 Bones/joints: Bones have a normal appearance. No acute fracture or suspicious bone lesion. Soft tissues: Unremarkable. IMPRESSION: No acute pulmonary findings. Pulmonary fibrosis as above. PROCEDURE INFORMATION: Exam: CT Abdomen And Pelvis Without Contrast Exam date and time: 06/19/2025 11:15 PM Age: 65 years old Clinical indication: Abdominal pain; Prior surgery; Surgery date: 6+ months; Surgery type: Cholecystectomy, appendectomy, tubal ligation; Epigastric and central chest pain, ckd, vomiting TECHNIQUE: Imaging protocol: Computed tomography of the abdomen and pelvis without contrast. 3D rendering (Not supervised by radiologist): MIP and/or 3D reconstructed images were created by the technologist. Radiation optimization: All CT scans at this facility use at least one of these dose optimization techniques: automated exposure control; mA and/or kV adjustment per patient size (includes targeted exams where dose is matched to clinical indication); or iterative reconstruction. COMPARISON: CT CHEST/ABD/PEL W 06/06/2025 9:05 PM FINDINGS: Liver: The liver has a normal appearance. Gallbladder and biliary ducts: The gallbladder is surgically absent. Pancreas: The pancreas is atrophic. Spleen: The spleen demonstrates normal size. Adrenal glands: The adrenal glands have a normal appearance. Kidneys and ureters: The kidneys are normal in size. There is mild bilateral perinephric fat stranding. No hydronephrosis. No hydroureter or ureterolithiasis. Stomach and bowel: The bowel demonstrates overall normal caliber and wall thickness. Appendix: The appendix is not visualized and clips are noted in the region of the cecum suggesting prior appendectomy. Intraperitoneal space: Unremarkable. No free air. No significant fluid collection. Vasculature: There are scattered atheromatous calcifications throughout the aorta and iliac arteries. Lymph nodes: No enlarged lymph nodes. Urinary bladder: The bladder is thin walled and fluid filled. Reproductive: The uterus has a normal appearance. Bones/joints: Bones have a normal appearance. No acute fracture or suspicious bone lesion. Soft tissues: Unremarkable. IMPRESSION: No acute intra-abdominal findings. Dictated and Authenticated by: Geena Ovalle MD. Orderin Nicole Manrique MD
[2025-06-20 01:14] LABS: Troponin I 12 ng/L (<or=51)
== END 2025-06-20 02:06 | disposition home or self-care (01) ==
PROVIDERS: Emergency Provider Student in an Organized Health Care Education/Training Program; PCP Nurse Practitioner Family
DX: R11.2 Nausea with vomiting, unspecified (principal); R10.13 Epigastric pain; Z59.82 Transportation insecurity
CPT/HCPCS: 99284; 99285; 36415; 96374; 71250; 80053; 83690; 93005; 96361; 74176; 83605; 84484; 85025; 93010; J2405

== ENCOUNTER 2025-08-20 16:49 | Emergency (ER) | payer MEDICARE, MEDICAID, SELFPAY ==
[2025-08-20] VITALS (12 sets, daily range): BP systolic 111–157; BP diastolic 55–68; PULSE 98–111; RESP 15–18; TEMP 36.3; O2SAT 94–99
--- NOTE | 2025-08-20 16:45 | RT.EKG_ITS ---
APPROVED REPORT Exam: Resting ECG Reason for Exam: Chest Pain Patient Location: E HR:104 bpm ECG Measurements Heart Rate 104 AXIS NC 195 P 71 QRSd 86 QRS -4 QT 331 T 42 QTc 436 Conclusion Sinus tachycardia...rate> 99 Ventricular premature complex...V complex w/ short R-R interval Aberrant conduction of SV complex(es)...aberrant shape, NC 80-220 Consider anterior infarct...Q >30mS in V2-V5
--- NOTE | 2025-08-20 17:07 | W.ED.GENAD ---
Discharge Plan Disposition Patient Disposition: Home Condition: Stable Discharge Details Clinical Impression: Urinary tract infection, Pneumonia involving left lung, Chest pain of uncertain etiology, Hyponatremia Primary Care Provider: Jeny Almonte ED Provider: Burton You Home Meds and New Rx's Prescriptions: New levofloxacin 750 mg tablet 750 mg PO .Q48HR 7 Days Qty: 4 0RF Rx Instructions: start on 08/21 Continued nystatin 100,000 unit/mL Suspension 5 ml PO QID PRN PRN naloxone [Narcan] 4 mg/actuation [place],Non-Aerosol 4 mg INTRANASAL PRN PRN benzonatate 100 mg capsule 100 mg PO TID PRN (Reason: cough) Qty: 14 0RF (DME) rolling walker with seat Qty: 1 0RF Rx Instructions: As directed with ambulation insulin aspart U-100 [Novolog FlexPen U-100 Insulin] 300 UNITS/3 ML insulin pen 2 - 20 units Sub-Q 0800,1200,1700 Rx Instructions: Dispense one pen see sliding scale bupropion HCl 150 mg tablet sustained-release 12 hr 1 tab PO BID Patient Comments: TAKE ONE TABLET BY MOUTH TWICE A DAY lorazepam 0.5 mg tablet 0.5 mg PO BID PRN Patient Comments: TAKE ONE TABLET BY MOUTH EVERY 6 HOURS NEEDED FOR ANXIETY dexlansoprazole [Dexilant] 30 mg capsule,biphase delayed releas 30 mg PO DAILY Patient Comments: pt takes in the morning isosorbide dinitrate 30 mg tablet 30 mg PO DAILY Patient Comments: TAKE ONE TABLET BY MOUTH EVERY DAY duloxetine 30 mg capsule,delayed release(DR/EC) 30 mg PO HS Patient Comments: TAKE ONE CAPSULE BY MOUTH EVERY DAY Mounjaro 10 mg/0.5 mL pen injector 10 mg SUBCUT .weekly Patient Comments: INJECT 10MG SUBCUTANEOUSLY EVERY WEEK, ROTATE INJECTION SITES nitroglycerin [Nitrostat] 0.4 MG tablet, sublingual 0.4 mg Sublingual PRN PRN cyclobenzaprine 10 mg tablet 10 mg PO Q8H PRN PRN hydrocodone-acetaminophen 5-325 mg tablet 1 tab PO Q8H PRN PRN Patient Comments: TAKE ONE TABLET BY MOUTH EVERY 6 TO 8 HOURS NEEDED aspirin 81 mg tablet,delayed release (DR/EC) 81 mg PO DAILY Patient Comments: TAKE ONE TABLET BY MOUTH EVERY DAY fluticasone propionate 50 mcg/actuation spray,suspension 1 spray INTRANASAL DAILY Patient Comments: INSTILL 2 SPRAYS NASALLY DAILY duloxetine 60 mg capsule,delayed release(DR/EC) 60 mg PO .COMPLEX Patient Comments: 60mg am 30mg HS Rx Instructions: 60mg daily in am. 30mg HS dexlansoprazole [Dexilant] 60 mg capsule,biphase delayed releas 60 mg PO DAILY Patient Comments: takes at night docusate sodium 250 mg Capsule 250 mg PO HS PRN insulin glargine [Basaglar KwikPen U-100 Insulin] 100 unit/mL (3 mL) insulin pen 30 unit SUBCUT QPM Patient Comments: INJECT 60 UNITS SUBCUTANEOUSLY ONCE DAILY (30 UNITS EVERY MORNING AND 30 UNITS QPM) cholecalciferol (vitamin D3) [Vitamin D3] 25 mcg (1,000 unit) capsule 1,000 unit PO DAILY Patient Comments: no longer taking 05/19/ MG lidocaine [Lidoderm] 5 % adhesive patch,medicated 1 patch topical DAILY PRNQty: 15 0RF Rx Instructions: leave on most painful area for up to 12 hrs atorvastatin 80 mg tablet 40 mg PO BID Patient Comments: TAKE ONE TABLET AB BY MOUTH DAILY (cuts tab in half, takes morning and night to reduce side effects) clopidogrel 75 mg tablet 75 mg PO DAILY Patient Comments: TAKE ONE TABLET AB BY MOUTH DAILY magnesium oxide 400 mg (241.3 mg magnesium) tablet 400 mg PO BID lisinopril 2.5 mg tablet 2.5 mg PO DAILY Patient Comments: pt states that she has been taking 0.5 of 2.5mg pill (1.25mg) due to orthostatic reaction, PCP notified but order has not been changed acetaminophen 500 mg Tablet 1,000 mg PO Q8H Qty: 30 0RF Rx Instructions: Then resume your home pain medicine as ordered by your outpatient provider pantoprazole 40 mg Tablet,Delayed Release (Dr/Ec) 40 mg PO DAILY@0730 Qty: 30 0RF oxycodone 5 mg tablet 5 mg PO Q8H PRNQty: 15 0RF Rx Instructions: Do not take your home hydrocodone and acetaminophen while on this Discharge Instructions Instructions: Levofloxacin (Systemic), Chest Pain, Adult ED, Urinary Tract Infection, Adult ED, Pneumonia, Adult ED, Hyponatremia Additional Instructions: You were seen in the emergency department for your chest pain of uncertain cause, your cardiac workup is negative we ruled out a blood clot in your lungs, your x-ray shows possible mild left lung pneumonia which we are starting you on an antibiotic called levofloxacin taken once every 48 hours, I sent this prescription to [facility] in [place] and we gave you a dose tonight of an antibiotic to cover the first 24 hours, so start this medication on 08/21. This antibiotic will also treat the urinary tract infection that we found, stay well-hydrated, you have mildly low sodium so you should eat some extra salty foods but stay hydrated at the same time, take Tylenol as needed for any discomfort, continue your Azo that you started yesterday. Follow-up with your primary care provider for an update to your baseline cardiac studies or referral to cardiology, your chest pain today may have been due to your likely pneumonia as your cardiac workup is negative. Please return to the ED for any severe acute worsening, chest pain continuing, respiratory distress, worsening abdominal pain especially with fever. Stand Alone Forms: Portal Information Referrals: Jeny Almonte [Primary Care Provider, Medicine] Discharge Data Discharge Date/Time-TO BE ENTERED AT DEPARTURE: 08/20/25 20:29 HPI General Date/Time Provider Initiated Documentation: 08/20/25 17:02. HPI Narrative: 65 year-old female presents to ED today by POV/ambulating with a chief complaint of diarrhea for the past 24 hours, possibly dehydrated with some light chest pressure without shortness of breath. Quality described as generally feels unwell with mostly focal complaints of diarrhea, completely liquid, states that she does not think she has C. difficile, no radiation to fever, chest pain- endorses chest pressure, denies shortness of breath, endorses cough, denies severe abdominal pain, denies dysuria but endorses peeing less than usual, denies altered mentation. Severity is described as mild to moderate for chest pressure, severe for diarrhea. Palliating factors include nothing specific. Provoking factors include nothing specific. Patient not anticoagulated. Related Data Home Medications ?Medication ?Instructions ?Recorded ?Confirmed nitroglycerin 0.4 mg sublingual 0.4 mg sublingual PRN PRN 06/01/17 06/19/25 tablet (Nitrostat) naloxone 4 mg/actuation nasal 4 mg intranasal PRN PRN 09/10/19 06/19/25 spray (Narcan) nystatin 100,000 unit/mL oral 5 ml PO QID PRN PRN 09/10/19 06/19/25 suspension rolling walker with seat #1 ea 01/12/20 06/19/25 aspirin 81 mg tablet,delayed 81 mg PO DAILY 06/24/20 06/19/25 release cyclobenzaprine 10 mg tablet 10 mg PO Q8H PRN PRN 06/24/20 06/19/25 dexlansoprazole 60 mg 60 mg PO DAILY 06/24/20 06/19/25 capsule,biphase delayed release (Dexilant) duloxetine 60 mg capsule,delayed 60 mg PO .COMPLEX 06/24/20 06/19/25 release fluticasone propionate 50 1 spray intranasal DAILY 06/24/20 06/19/25 mcg/actuation nasal spray,suspension hydrocodone 5 mg-acetaminophen 325 1 tab PO Q8H PRN PRN 06/24/20 06/19/25 mg tablet docusate sodium 250 mg capsule 250 mg PO HS PRN 07/16/20 06/19/25 insulin aspart U-100 100 unit/mL 2 - 20 units subcut 0800,1200,1700 11/15/20 06/19/25 (3 mL) subcutaneous pen (Novolog FlexPen U-100 Insulin aspart) bupropion HCl 150 mg tablet,12 hr 1 tab PO BID 02/07/22 06/19/25 sustained-release insulin glargine 100 unit/mL (3 30 unit subcut QPM 02/10/22 06/19/25 mL) subcutaneous pen (Basaglar KwikPen U-100 Insulin) cholecalciferol (vitamin D3) 25 1,000 unit PO DAILY 02/20/23 06/19/25 mcg (1,000 unit) capsule (Vitamin D3) lidocaine 5 % topical patch 1 patch topical DAILY PRN #15 ea 02/20/23 06/19/25 (Lidoderm) lorazepam 0.5 mg tablet 0.5 mg PO BID PRN 06/25/23 06/19/25 atorvastatin 80 mg tablet 40 mg PO BID 07/24/23 06/19/25 clopidogrel 75 mg tablet 75 mg PO DAILY 09/07/23 06/19/25 magnesium oxide 400 mg (241.3 mg 400 mg PO BID 09/07/23 06/19/25 magnesium) tablet lisinopril 2.5 mg tablet 2.5 mg PO DAILY 09/17/23 06/19/25 dexlansoprazole 30 mg 30 mg PO DAILY 04/20/24 06/19/25 capsule,biphase delayed release (Dexilant) isosorbide dinitrate 30 mg tablet 30 mg PO DAILY 04/20/24 06/19/25 duloxetine 30 mg capsule,delayed 30 mg PO HS 04/07/25 06/19/25 release tirzepatide 10 mg/0.5 mL 10 mg subcut .weekly 04/07/25 06/19/25 subcutaneous pen injector (Mounjaro) benzonatate 100 mg capsule 100 mg PO TID PRN cough #14 caps 04/12/25 06/19/25 acetaminophen 500 mg tablet 1,000 mg (2 x 500 mg) PO Q8H #30 06/08/25 06/19/25 tabs pantoprazole 40 mg tablet,delayed 40 mg PO DAILY@0730 #30 tabs 06/08/25 06/19/25 release oxycodone 5 mg tablet 5 mg PO Q8H PRN #15 tabs 06/09/25 06/19/25 levofloxacin 750 mg tablet 750 mg PO .Q48HR 7 days #4 tabs 08/20/25 Previous Rx's ?Medication ?Instructions ?Recorded rolling walker with seat #1 ea 01/12/20 lidocaine 5 % topical patch 1 patch topical DAILY PRN #15 ea 02/20/23 (Lidoderm) benzonatate 100 mg capsule 100 mg PO TID PRN cough #14 caps 04/12/25 acetaminophen 500 mg tablet 1,000 mg (2 x 500 mg) PO Q8H #30 06/08/25 tabs pantoprazole 40 mg tablet,delayed 40 mg PO DAILY@0730 #30 tabs 06/08/25 release oxycodone 5 mg tablet 5 mg PO Q8H PRN #15 tabs 06/09/25 levofloxacin 750 mg tablet 750 mg PO .Q48HR 7 days #4 tabs 08/20/25 Allergies Allergy/AdvReac Type Severity Reaction Status Date / Time Penicillins Allergy Contraindic Unverified 06/16/25 14:43 ated Sulfa (Sulfonamide Allergy Contraindic Unverified 06/16/25 14:43 Antibiotics) ated exenatide (From [place]) AdvReac Intermediate diarrhea Unverified 06/16/25 14:43 metformin AdvReac Intermediate diarrhea Unverified 06/16/25 14:43 quetiapine (From Seroquel) AdvReac Intermediate Nausea Unverified 06/16/25 14:43 amitriptyline AdvReac made my Unverified 06/16/25 14:43 face go numb amoxicillin trihydrate (From AdvReac acute Unverified 06/16/25 14:43 Augmentin) kidney failure NSAIDS (Non-Steroidal AdvReac stage III Unverified 06/16/25 14:43 Anti-Inflamma kidney disease potassium clavulanate (From AdvReac acute Unverified 06/16/25 14:43 Augmentin) kidney failure General Stated Complaint: Chest Pain SADE: 3 Review of Systems All systems reviewed & are unremarkable except as noted in HPI and below Exam Narrative Exam Narrative: GENERAL APPEARANCE: Frail, non-toxic, awake and alert, atraumatic, mild acute distress. SKIN: Warm, pale, dry, intact, without rashes/lesions/ulcerations. HEAD: Normocephalic, atraumatic, normal hair distribution for gender/age. EYES: pale conjunctiva, no exudates on lids/lashes. ENT: Nares patent, no circumoral cyanosis, no facial swelling NECK: Supple, trachea midline, painless cervical ROM. LUNGS/CHEST: Lungs CTA bilaterally-no rhonchi/rales/wheeze diffusely, non-labored respirations, normal A/P diameter, symmetrical expansion, no chest wall deformity HEART (CV/PV): Regular rate and rhythm without murmur, no peripheral edema, no JVD. ABDOMEN: Soft, non-distended, no guarding, mild lower abdominal tenderness without rebound tenderness. MSK: Normal ROM, no swelling/deformity to bilateral UEs or LEs, moving all extremities without weakness, no cyanosis, spine midline without tenderness, normal curvature. NEURO: Mental Status AAOx4 - alert to person, place, time, events No facial droop, no forehead involvement. Motor: No focal weakness Sensory: sensation intact to light touch globally. Gait NT PSYCH: euthymic, cooperative, pleasant, appropriate speech Course Vital Signs Vital signs: Vital Signs Temperature 36.3 C L 08/20/25 16:51 Pulse 111 H 08/20/25 16:51 Blood Pressure 157/66 H 08/20/25 16:51 Pulse Oximetry 97 08/20/25 16:51 Temperature 36.3 C L 08/20/25 16:51 Temperature Source Oral 08/20/25 16:51 Pulse 111 H 08/20/25 16:51 Respiratory Effort Normal, Non-Labored 08/20/25 17:04 Respiratory Depth Normal 08/20/25 17:04 Respiratory Pattern Normal 08/20/25 17:04 Blood Pressure 157/66 H 08/20/25 16:51 Pulse Oximetry 97 08/20/25 16:51 Oxygen Delivery Method Room Air 08/20/25 16:51 Oxygen Flow Rate 0 08/20/25 16:51 Medical Decision Making This dictation utilizes [id number] dictation software and may contain unedited grammatical errors. 65 year-old female presents to ED today by POV/ambulating with a chief complaint of diarrhea for the past 24 hours, possibly dehydrated with some light chest pressure without shortness of breath. Quality described as generally feels unwell with mostly focal complaints of diarrhea, completely liquid, states that she does not think she has C. difficile, no radiation to fever, chest pain- endorses chest pressure, denies shortness of breath, endorses cough, denies severe abdominal pain, denies dysuria but endorses peeing less than usual, denies altered mentation. Severity is described as mild to moderate for chest pressure, severe for diarrhea. Palliating factors include nothing specific. Provoking factors include nothing specific. Patient endorses that she has been on Azo and may have a UTI. Patients' medical history: Acute on chronic kidney failure, diabetes mellitus, fibromyalgia, panic disorder, anemia, COPD, hypomagnesemia, hyperlipidemia, orthostatic hypotension, opioid use disorder, GERD. Family and social history: Denies EtOH or IVDU, no recent travel or sick contacts. Pertinent exam findings / vital signs include benign abdomen, benign cardiopulmonary exam, mildly tachycardic on arrival that resolved, pale conjunctiva. Differential / pathologies of concern include enteritis, colitis, diarrhea, dehydration, UTI, ACS, URI, PE. Diagnostic studies of: - CBC, CMP, D-dimer, magnesium, troponin, BNP, lipase, UA, respiratory PCR swab, x-ray chest. C. diff ordered but patient did not provide sample. EKG. - CBC shows no leukocytosis, stable chronic anemia - D-dimer negative, do not suspect PE - Lactate 1.5 do not suspect sepsis - CMP shows hyponatremia with a sodium of 127, baseline creatinine of 1.18 - Serial troponins negative - BNP is elevated 824 possible renal source, no respiratory distress - Lipase negative - UA has interference from Azo with 10-20 WBCs, will treat for UTI, culture pending - PCR swab negative - X-ray chest shows possible patchy infiltrate in the left lung - EKG shows sinus tachycardia at 104 bpm with P waves followed by narrow complex QRS with no ST abnormalities, poor R wave progression, normal QT QTc, no T wave abnormality Interventions of: - 1 L IVF ran at maintenance rates for slow repletion of sodium, 1 g IV ceftriaxone to cover UTI, Rx for levofloxacin every 48 hours due to renal function for dual coverage of UTI and possible left lobe pneumonia, counseled on eating saltier foods and drinking sports drinks a Gatorade or Pedialyte staying well-hydrated, follow-up with PCP for routine rechecks. ED Course/Assessment/Plan: 65-year-old female presents with vague complaints of loose stools and diarrhea but does not provide a stool sample here, think she may have a UTI noted later in the visit and notes that she has been taking Azo, she had some chest pressure, her PE workup is negative, ACS workup is negative. X-ray notes a patchy infiltrate in the left lung and patient notes cough ongoing, her urine is 10-20 WBCs and cultures pending, plan to do will cover her for pneumonia and UTI with levofloxacin starting tomorrow, she was given 1 dose of ceftriaxone here which is a reasonable choice for both conditions, she is in no acute distress and her vitals normalized she is in no respiratory distress, has no fever and no leukocytosis with a negative lactate, patient was comfortable with this disposition she will try to eat salty foods and stay well-hydrated and have intake of sports drinks and Pedialyte, counseled her on having her routine follow-up for her sodium level with her primary care provider, she states this has been an issue in the past for her. Findings not consistent with sepsis, respiratory distress, ACS, PE, CHF, profound dehydration. Disposition of urinary tract infection, pneumonia involving left lung, chest pain of uncertain etiology, hyponatremia. Patient verbalized understanding of the plan and return to ED criteria and engaged in shared decision making. Medical Records Medical records reviewed: Yes I reviewed the patient's medical records. Imaging Data Radiologic Study: Attestation: I personally reviewed and interpreted this imaging study as follows: Imaging: X-Ray Radiologist's impression: EXAM: XR CHEST 2V PA LATERAL CLINICAL HISTORY: chest pain. TECHNIQUE: 2D digital imaging was performed. COMPARISON: CR,XR XR PORTABLE CHEST AP from 05/08/[address] CHEST/ABD/PEL WO from 06/19/2025 FINDINGS: 2 views: Heart size is upper normal. The mediastinum is not widened. There is interstitial lung disease again noted, as evident on CT scan of 06/19/2025. There is suggestion of some additional patchy infiltrate in the left lung. No pleural effusions. IMPRESSION: Patchy infiltrates in the left lung, this superimposed chronic appearing interstitial lung disease. There are no pleural effusions. Lab Data Lab results reviewed: Yes I reviewed the patient's lab results. Labs: 08/20/25 18:20 Urine - Reflex from Ua Urine Culture - Pending Laboratory Tests Range/Units 08/20/25 08/20/25 08/20/25 17:12 17:22 18:12 WBC (4.4-10.8) 10^3/uL 5.85 RBC (3.93-5.22) 10^6/uL 3.17 L Hgb (11.2-15.7) g/dL 10.2 L Hct (36.0-46.0) % 29.1 L MCV (80-95) fL 92 MCH (27.0-33.0) pg 32.2 MCHC (32.0-36.0) % 35.1 RDW (11.7-14.6) % 12.7 Plt Count (130-400) 10^3/uL 297 MPV (8.0-11.0) fL 8.7 Immature Gran % % 0.7 Neutrophils % % 58.2 Lymphocytes % % 29.1 Monocytes % % 8.9 Eosinophils % % 2.4 Basophils % % 0.7 Nucleated RBC % (0.0-0.3) % 0.0 Absolute Neutrophils (1.2-6.7) 10^3/uL 3.41 Absolute Lymphocytes (1.2-3.4) 10^3/uL 1.70 Absolute Monocytes (0.1-0.8) 10^3/uL 0.52 Absolute Eosinophils (0.0-0.7) 10^3/uL 0.14 Absolute Basophils (0.0-0.2) 10^3/uL 0.04 D-Dimer (<500) ng/mlFEU 301 VBG Lactate (<or=2.0) mmol/L 1.5 Sodium (136-145) mmol/L 127 L Potassium (3.5-5.1) mmol/L 3.7 Chloride (98-107) mmol/L 94 L Carbon Dioxide (20.0-31.0) mmol/L 27.1 Anion Gap (3-11) mmol/L 5.8 BUN (9-23) mg/dL 15 Creatinine (0.55-1.02) mg/dL 1.18 H Est GFR (CKD-EPI 2020) (mL/min/1.73m2) 45.93 Glucose (74-106) mg/dL 160 H Calcium (8.3-10.6) mg/dL 9.2 Magnesium (1.6-2.6) mg/dL 1.7 Total Bilirubin (0.2-1.2) mg/dL 0.5 AST (<34) U/L 18 ALT (10-49) U/L 13 Alkaline Phosphatase (46-116) U/L 85 Troponin I (<35) ng/L 5 5 NT-Pro-B Natriuret Pep (<300) pg/mL 824 H Total Protein (5.7-8.2) g/dL 6.0 Albumin (3.2-5.0) g/dL 3.6 Lipase (<53) U/L 17 Urine Color (Yellow) Urine Clarity (Clear) Urine pH Ur Specific [place] (1.005-1.025) Urine Protein (Neg-Trace) mg/dL Urine Ketones (Negative) mg/dL Urine Blood (Negative) Urine Nitrite (Negative) Urine Bilirubin (Negative) Urine Urobilinogen (Up to 0.2) mg/dL Ur Leukocyte Esterase (Negative) Urine RBC (0-2) HPF Urine WBC (0-5) HPF Ur Epithelial Cells (Negative) HPF Urine Crystals (Negative) HPF Urine Bacteria (Negative) HPF Urine Casts (Negative) LPF Urine Mucus (Negative) Ur Culture Indicated? Urine Glucose (Negative) mg/dL COVID-19 Source Nasopharynx SARS-CoV-2 (PCR) (Negative) Negative Influenza Type A (PCR) (Negative) Negative Influenza Type B (PCR) (Negative) Negative RSV (PCR) (Negative) Negative Range/Units 08/20/25 18:20 WBC (4.4-10.8) 10^3/uL RBC (3.93-5.22) 10^6/uL Hgb (11.2-15.7) g/dL Hct (36.0-46.0) % MCV (80-95) fL MCH (27.0-33.0) pg MCHC (32.0-36.0) % RDW (11.7-14.6) % Plt Count (130-400) 10^3/uL MPV (8.0-11.0) fL Immature Gran % % Neutrophils % % Lymphocytes % % Monocytes % % Eosinophils % % Basophils % % Nucleated RBC % (0.0-0.3) % Absolute Neutrophils (1.2-6.7) 10^3/uL Absolute Lymphocytes (1.2-3.4) 10^3/uL Absolute Monocytes (0.1-0.8) 10^3/uL Absolute Eosinophils (0.0-0.7) 10^3/uL Absolute Basophils (0.0-0.2) 10^3/uL D-Dimer (<500) ng/mlFEU VBG Lactate (<or=2.0) mmol/L Sodium (136-145) mmol/L Potassium (3.5-5.1) mmol/L Chloride (98-107) mmol/L Carbon Dioxide (20.0-31.0) mmol/L Anion Gap (3-11) mmol/L BUN (9-23) mg/dL Creatinine (0.55-1.02) mg/dL Est GFR (CKD-EPI 2020) (mL/min/1.73m2) Glucose (74-106) mg/dL Calcium (8.3-10.6) mg/dL Magnesium (1.6-2.6) mg/dL Total Bilirubin (0.2-1.2) mg/dL AST (<34) U/L ALT (10-49) U/L Alkaline Phosphatase (46-116) U/L Troponin I (<35) ng/L NT-Pro-B Natriuret Pep (<300) pg/mL Total Protein (5.7-8.2) g/dL Albumin (3.2-5.0) g/dL Lipase (<53) U/L Urine Color (Yellow) [place] Urine Clarity (Clear) Clear Urine pH Not Applicable Ur Specific [place] (1.005-1.025) 1.008 Urine Protein (Neg-Trace) mg/dL Color Interference Urine Ketones (Negative) mg/dL Color Interference Urine Blood (Negative) Color Interference Urine Nitrite (Negative) Color Interference Urine Bilirubin (Negative) Color Interference Urine Urobilinogen (Up to 0.2) mg/dL Color Interference Ur Leukocyte Esterase (Negative) Color Interference Urine RBC (0-2) HPF 0-2 Urine WBC (0-5) HPF 10-20 H Ur Epithelial Cells (Negative) HPF Few Urine Crystals (Negative) HPF Negative Urine Bacteria (Negative) HPF Many Urine Casts (Negative) LPF Negative Urine Mucus (Negative) Negative Ur Culture Indicated? Yes Urine Glucose (Negative) mg/dL Color Interference COVID-19 Source SARS-CoV-2 (PCR) (Negative) Influenza Type A (PCR) (Negative) Influenza Type B (PCR) (Negative) RSV (PCR) (Negative) Quality:SDOH Health Related Social Needs: Health related social needs transpo insecurity lonely/isolated Health related social needs details Pt declines any assistance or services at this time. PFSH All Active Problems (Updated 08/20/25 @ 19:23 by WHIT Wiggins) Hyponatremia (Acute) Chest pain of uncertain etiology (Acute) Pneumonia involving left lung (Acute) Urinary tract infection (Acute) Osteoarthritis of right hip (Acute) Orthostatic hypotension (Acute) Benzodiazepine dependence, episodic (Acute) Chronic back pain greater than 3 months duration (Acute) Opioid use disorder, moderate, dependence (Acute) Musculoskeletal chest pain (Acute) Anticoagulated (Acute) Fall (Acute) Pain in rib (Acute) Hyperglycemia (Acute) Acute adrenal insufficiency (Acute) URI (upper respiratory infection) (Acute) Headache (Acute) Urinary tract infection (Acute) Atypical chest pain (Acute) Hypomagnesemia (Acute) COVID-19 (Acute) Coronary artery disease (Chronic) Chest pain (Acute) CAD (coronary atherosclerotic disease) (Acute) 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 (Acute) Primary osteoarthritis of both first carpometacarpal joints (Acute 12/22/17) Hypertension (Chronic) Insomnia (Acute) GERD (gastroesophageal reflux disease) (Chronic) Chronic kidney disease (Chronic) COPD (chronic obstructive pulmonary disease) (Chronic) Mixed anxiety depressive disorder (Acute) Medical History Fibromyalgia Panic disorder Mental disorder Pernicious anemia Proliferative retinopathy due to DM 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 Epigastric pain Diarrhea Wheezing Dupuytren's disease of palm Low back pain CKD stage 3 due to type 2 diabetes mellitus Acute exacerbation of chronic obstructive airways disease Allergic rhinitis 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 Insomnia Surgical History H/O lumpectomy Hx of tubal ligation section x2. No complications. Coronary Stent Cholecystectomy Appendectomy Family History Brother Diabetes Hypertension Heart disease Stroke Obesity Chronic headaches Arthritis Brother Arthritis Chronic headaches Diabetes Heart disease Hypertension Obesity Stroke Father Heart disease Stroke Hypertension Chronic headaches Sister Diabetes Obesity Osteoporosis Daughter Migraine Obesity Brother Arthritis Diabetes Chronic headaches Hypertension Obesity Stroke Mother Asthma Arthritis Diabetes Obesity Stroke Glaucoma Social History Smoking/Tobacco Use Status: Former Tobacco Use Quit Date: 04/13/19 Pack-years: 45 Tobacco: How many years used: 45 Quit status: considering quitting Smoking risk assessment performed?: Yes Alcohol Intake: never Drug use: Never Substance use type: does not use Details: Quit smoking 6 years ago. Household members: friend(s) Housing: apartment Number of Children: 3 number of grandchildren: 14 current occupation: none What is your relationship status?: Panel score (0-1 are the most socially isolated patients): 0 What type of physical activity do you participate in: none Do you feel safe at home: Yes Do you feel safe in your relationship?: Yes
[2025-08-20 17:35] LABS: Abs Immature Grans 0.04 10^3/uL (0.0-0.06); HCT 29.1 % (36.0-46.0); HGB 10.2 g/dL (11.2-15.7); Immature Grans % 0.7 %; MCH 32.2 pg (27.0-33.0); MCHC 35.1 % (32.0-36.0); MCV 92 fL (80-95); MPV 8.7 fL (8.0-11.0); Platelet Count 297 10^3/uL (130-400); RBC 3.17 10^6/uL (3.93-5.22); RDW 12.7 % (11.7-14.6); RDW-SD 42.9 fL; WBC 5.85 10^3/uL (4.4-10.8)
[2025-08-20 17:52] LABS: Troponin I 5 ng/L (<35)
[2025-08-20 17:53] LABS: ALT 13 U/L (10-49); AST 18 U/L (<34); Albumin 3.6 g/dL (3.2-5.0); Alkaline Phosphatase 85 U/L (46-116); Anion Gap 5.8 mmol/L (3-11); BUN 15 mg/dL (9-23); Bilirubin, Total 0.5 mg/dL (0.2-1.2); CO2 27.1 mmol/L (20.0-31.0); Calcium 9.2 mg/dL (8.3-10.6); Chloride 94 mmol/L (98-107); Glucose 160 mg/dL (74-106); Lipase 17 U/L (<53); Magnesium 1.7 mg/dL (1.6-2.6); Potassium 3.7 mmol/L (3.5-5.1); Sodium 127 mmol/L (136-145); Total Protein 6.0 g/dL (5.7-8.2)
--- NOTE | 2025-08-20 18:00 | DI.RAD_ITS ---
Exam(s) XR CHEST 2V PA LATERAL EXAM: XR CHEST 2V PA LATERAL CLINICAL HISTORY: chest pain. TECHNIQUE: 2D digital imaging was performed. COMPARISON: CR,XR XR PORTABLE CHEST AP from 05/08/[address] CHEST/ABD/PEL WO from 06/19/2025 FINDINGS: 2 views: Heart size is upper normal. The mediastinum is not widened. There is interstitial lung disease again noted, as evident on CT scan of 06/19/2025. There is suggestion of some additional patchy infiltrate in the left lung. No pleural effusions. IMPRESSION: Patchy infiltrates in the left lung, this superimposed chronic appearing interstitial lung disease. There are no pleural effusions. DATA REPOSITORY: RADIATION DOSE DELIVERED:
[2025-08-20 18:03] LABS: D-Dimer 301 ng/mlFEU (<500)
[2025-08-20 18:39] LABS: Troponin I 5 ng/L (<35)
[2025-08-20 18:42] LABS: Glucose Color Interference mg/dL (Negative)
[2025-08-20 18:43] LABS: C & S Indicated? Yes; RBC 0-2 HPF (0-2)
[2025-08-20 18:55] LABS: COVID-19 PCR Negative (Negative); RSV PCR Negative (Negative)
[2025-08-20] MEDS: Normal Saline 1,000 ML 100 ML IV (18:56)
[2025-08-20] MEDS: cefTRIAXone 1 GM/50 ML BAG IVPB (19:15)
== END 2025-08-20 20:29 | disposition home or self-care (01) ==
PROVIDERS: Emergency Provider Physician Assistant; PCP Nurse Practitioner Family
DX: J18.9 Pneumonia, unspecified organism (principal); R07.9 Chest pain, unspecified; N39.0 Urinary tract infection, site not specified; E87.1 Hypo-osmolality and hyponatremia; R19.7 Diarrhea, unspecified; Z59.82 Transportation insecurity; Z60.8 Other problems related to social environment
CPT/HCPCS: 36415; 80053; 83690; 87077; 87637; 93005; 96365; 99284; 71046; 81003; 81015; 83605; 83735; 83880; 84484; 85025; 85379; 87086; 87186; 93010; J0696

== ENCOUNTER 2025-08-22 08:26 | Emergency (ER) | payer MEDICARE, MEDICAID, SELFPAY ==
[2025-08-22] VITALS (25 sets, daily range): BP systolic 94–143; BP diastolic 55–72; PULSE 98–111; RESP 14–24; TEMP 35.8–36.9; O2SAT 93–100
--- NOTE | 2025-08-22 08:15 | RT.EKG_ITS ---
APPROVED REPORT Exam: Resting ECG Reason for Exam: CP Patient Location: E HR:103 bpm ECG Measurements Heart Rate 103 AXIS ME 196 P 71 QRSd 90 QRS 30 QT 356 T 5 QTc 467 Conclusion Sinus tachycardia, rate 103 No interval abnormlaities No STEMI Compared to prior, no significant changes
--- NOTE | 2025-08-22 08:30 | DI.CT_ITS ---
Exam(s) CT CHEST PE CTA EXAM: CT CHEST PE CTA CLINICAL HISTORY: Chest pain concern for PE. TECHNIQUE: Imaging Protocol: Axial CT angiography was performed with multi- slice acquisition and multi-planar reconstructions as well as axial, coronal and sagittal MIP reconstructions. Computer aided detection (CAD) was utilized. CONTRAST MATERIAL: Intravenous: Omnipaque 350 Contrast volume:75 ml COMPARISON: CT CT CHEST/ABD/PEL WO from 06/19/2025 CR XR CHEST 2V PA LATERAL from 08/20/2025 FINDINGS: Pulmonary Arteries: No evidence of filling defect to suggest pulmonary emboli. Mediastinum and Gisela: No dominant adenopathy or fluid collection. Pulmonary parenchyma: No consolidation or dominant measurable mass. Chronic interstitial fibrosis again noted. Expiratory changes. Pleura: No effusion or pneumothorax. Heart: The heart is not dilated. Coronary artery calcifications are seen. Aorta: Thoracic aorta non-dilated. No dissection. Aberrant right subclavian artery. Upper abdomen: No acute findings. Bones: Unremarkable for age. Tubes, Catheters, and Lines: None Soft tissues: Unremarkable. IMPRESSION: No evidence of pulmonary embolism. Chronic interstitial changes. RADIATION DOSE DELIVERED: Total DLP DATA REPOSITORY: All CT scans at this facility are submitted to the National Radiology Data Registry (NRDR) Dose Index Registry (DIR) with the [employer] (A[employer]). RADIATION OPTIMIZATION: All CT scans at this facility use at least one of these dose optimization techniques: automated exposure control; mA and/or kV adjustment per patient size (includes targeted exams where dose is matched to clinical indication); or iterative reconstruction.
--- NOTE | 2025-08-22 08:43 | W.ED.GENAD ---
Discharge Plan Disposition Patient Disposition: Home Condition: Stable Discharge Details Clinical Impression: Chest pain of uncertain etiology, Urinary tract infection Primary Care Provider: Jeny Almonte ED Provider: Sugey Gleason Home Meds and New Rx's Prescriptions: No Action nystatin 100,000 unit/mL Suspension 5 ml PO QID PRN PRN naloxone [Narcan] 4 mg/actuation [place],Non-Aerosol 4 mg INTRANASAL PRN PRN benzonatate 100 mg capsule 100 mg PO TID PRN (Reason: cough) Qty: 14 0RF (DME) rolling walker with seat Qty: 1 0RF Rx Instructions: As directed with ambulation insulin aspart U-100 [Novolog FlexPen U-100 Insulin] 300 UNITS/3 ML insulin pen 2 - 20 units Sub-Q 0800,1200,1700 Rx Instructions: Dispense one pen see sliding scale ONLY PRN if BGL over 150. bupropion HCl 150 mg tablet sustained-release 12 hr 1 tab PO BID Patient Comments: TAKE ONE TABLET BY MOUTH TWICE A DAY lorazepam 0.5 mg tablet 0.5 mg PO BID PRN Patient Comments: TAKE ONE TABLET BY MOUTH EVERY 6 HOURS NEEDED FOR ANXIETY isosorbide dinitrate 30 mg tablet 30 mg PO DAILY Patient Comments: TAKE ONE TABLET BY MOUTH EVERY DAY Mounjaro 10 mg/0.5 mL pen injector 10 mg SUBCUT .weekly Patient Comments: INJECT 10MG SUBCUTANEOUSLY EVERY WEEK, ROTATE INJECTION SITES levofloxacin 750 mg tablet 750 mg PO .Q48HR 7 Days Qty: 4 0RF Rx Instructions: start on 08/21 albuterol sulfate 90 mcg/actuation HFA aerosol inhaler 2 puff INHALATION Q4H PRN Patient Comments: INHALE 2 PUFFS BY MOUTH EVERY 4 TO 6 HOURS NEEDED nitroglycerin [Nitrostat] 0.4 MG tablet, sublingual 0.4 mg Sublingual PRN PRN cyclobenzaprine 10 mg tablet 10 mg PO Q8H PRN PRN hydrocodone-acetaminophen 5-325 mg tablet 1 tab PO Q6H PRN Patient Comments: TAKE ONE TABLET BY MOUTH EVERY 6 TO 8 HOURS NEEDED fluticasone propionate 50 mcg/actuation spray,suspension 1 spray INTRANASAL DAILY Patient Comments: INSTILL 2 SPRAYS NASALLY DAILY duloxetine 60 mg capsule,delayed release(DR/EC) 60 mg PO .COMPLEX Patient Comments: 60mg am 30mg HS Rx Instructions: 60mg daily in am. 30mg HS docusate sodium 250 mg Capsule 250 mg PO HS PRN cholecalciferol (vitamin D3) [Vitamin D3] 25 mcg (1,000 unit) capsule 1,000 unit PO DAILY Patient Comments: no longer taking 05/19/ MG lidocaine [Lidoderm] 5 % adhesive patch,medicated 1 patch topical DAILY PRNQty: 15 0RF Rx Instructions: leave on most painful area for up to 12 hrs atorvastatin 80 mg tablet 40 mg PO BID Patient Comments: TAKE ONE TABLET AB BY MOUTH DAILY (cuts tab in half, takes morning and night to reduce side effects) clopidogrel 75 mg tablet 75 mg PO DAILY Patient Comments: TAKE ONE TABLET AB BY MOUTH DAILY magnesium oxide 400 mg (241.3 mg magnesium) tablet 400 mg PO BID lisinopril 2.5 mg tablet 2.5 mg PO DAILY Patient Comments: pt states that she has been taking 0.5 of 2.5mg pill (1.25mg) due to orthostatic reaction, PCP notified but order has not been changed acetaminophen 500 mg Tablet 1,000 mg PO Q8H Qty: 30 0RF Rx Instructions: Then resume your home pain medicine as ordered by your outpatient provider pantoprazole 40 mg Tablet,Delayed Release (Dr/Ec) 40 mg PO DAILY@0730 Qty: 30 0RF Discharge Instructions Instructions: Chest Pain, Adult ED Additional Instructions: You were seen in the emergency department today for evaluation of chest pain in the setting of recently being diagnosed with pneumonia and a urinary tract infection. In our department you do full physical examination performed, and had an EKG that did not show any changes such as damage to your heart. You had laboratory studies that were reassuring including 2 negative cardiac enzymes. You had a CT scan of your chest that shows improvement in the pneumonia identified a few days ago, and no sign of other abnormality such as blood clot in your lung that could explain your chest pain. You had improvement in your symptoms with some medications here, and should continue to take all of your home medications for your chronic pain as prescribed. Unfortunately, we are sometimes unable to determine the exact cause of symptoms here in the emergency department. I am certainly suspicious that yo may be having some chest pain due to your recent illness. Please complete the entire course of levofloxacin as prescribed. Your urine culture obtained from your visit a few days ago shows that the bacteria in your urine are not responsive to the antibiotic that you are taking for your pneumonia. You received a one-time dose of an antibiotic to treat this infection. Please follow-up with your primary care provider in the next few days to discuss this visit and any symptoms that change, worsen, or persist. Thank you for allowing us to be part of your care. Stand Alone Forms: Portal Information HPI General Mode of arrival: EMS. Date/Time Provider Initiated Documentation: 08/22/25 08:40. Limitations to Documentation: no limitations. Information obtained by: patient, EMS and old records reviewed. HPI Narrative: This is a 65-year-old female patient with a past medical history significant for CAD, diabetes, hypertension, COPD, CKD, GERD, fibromyalgia, chronic back pain on opioid therapy, and a recent visit to our emergency department where she was diagnosed with a UTI, left lung pneumonia, and was started on levofloxacin, presenting for evaluation of chest pain. The patient reports that last night while at rest she started to develop a heavy chest pain in the center/right side of her chest, which radiates into her right arm. She reports that this pain seems to come and go, was temporarily responsive to nitro for only about 5 minutes before it returned. She reports that she does not note that this pain worsens with movement, palpation, position, but she can feel some worsening with a deep breath. The patient reports that she took her last dose of nitro about an hour ago, her pain is currently an 8 out of 10. States that she is no longer having any pain or numbness in her right arm like she was when this started. Received 325 mg of aspirin from EMS. Was otherwise hemodynamically appropriate. States that she has not had any associated nausea, vomiting, abdominal pain, or change in her back pain. Has not noticed any new leg swelling. Related Data Home Medications ?Medication ?Instructions ?Recorded ?Confirmed nitroglycerin 0.4 mg sublingual 0.4 mg sublingual PRN PRN 06/01/17 08/22/25 tablet (Nitrostat) naloxone 4 mg/actuation nasal 4 mg intranasal PRN PRN 09/10/19 08/22/25 spray (Narcan) nystatin 100,000 unit/mL oral 5 ml PO QID PRN PRN 09/10/19 08/22/25 suspension rolling walker with seat #1 ea 01/12/20 08/22/25 cyclobenzaprine 10 mg tablet 10 mg PO Q8H PRN PRN 06/24/20 08/22/25 duloxetine 60 mg capsule,delayed 60 mg PO .COMPLEX 06/24/20 08/22/25 release fluticasone propionate 50 1 spray intranasal DAILY 06/24/20 08/22/25 mcg/actuation nasal spray,suspension hydrocodone 5 mg-acetaminophen 325 1 tab PO Q6H PRN 06/24/20 08/22/25 mg tablet docusate sodium 250 mg capsule 250 mg PO HS PRN 07/16/20 08/22/25 insulin aspart U-100 100 unit/mL 2 - 20 units subcut 0800,1200,1700 11/15/20 08/22/25 (3 mL) subcutaneous pen (Novolog FlexPen U-100 Insulin aspart) bupropion HCl 150 mg tablet,12 hr 1 tab PO BID 02/07/22 08/22/25 sustained-release cholecalciferol (vitamin D3) 25 1,000 unit PO DAILY 02/20/23 08/22/25 mcg (1,000 unit) capsule (Vitamin D3) lidocaine 5 % topical patch 1 patch topical DAILY PRN #15 ea 02/20/23 08/22/25 (Lidoderm) lorazepam 0.5 mg tablet 0.5 mg PO BID PRN 06/25/23 08/22/25 atorvastatin 80 mg tablet 40 mg PO BID 07/24/23 08/22/25 clopidogrel 75 mg tablet 75 mg PO DAILY 09/07/23 08/22/25 magnesium oxide 400 mg (241.3 mg 400 mg PO BID 09/07/23 08/22/25 magnesium) tablet lisinopril 2.5 mg tablet 2.5 mg PO DAILY 09/17/23 08/22/25 isosorbide dinitrate 30 mg tablet 30 mg PO DAILY 04/20/24 08/22/25 tirzepatide 10 mg/0.5 mL 10 mg subcut .weekly 04/07/25 08/22/25 subcutaneous pen injector (Feli) benzonatate 100 mg capsule 100 mg PO TID PRN cough #14 caps 04/12/25 08/22/25 acetaminophen 500 mg tablet 1,000 mg (2 x 500 mg) PO Q8H #30 06/08/25 08/22/25 tabs pantoprazole 40 mg tablet,delayed 40 mg PO DAILY@0730 #30 tabs 06/08/25 08/22/25 release levofloxacin 750 mg tablet 750 mg PO .Q48HR 7 days #4 tabs 08/20/25 08/22/25 albuterol sulfate 90 mcg/actuation 2 puff inhalation Q4H PRN 08/22/25 08/22/25 aerosol inhaler Previous Rx's ?Medication ?Instructions ?Recorded rolling walker with seat #1 ea 01/12/20 lidocaine 5 % topical patch 1 patch topical DAILY PRN #15 ea 02/20/23 (Lidoderm) benzonatate 100 mg capsule 100 mg PO TID PRN cough #14 caps 04/12/25 acetaminophen 500 mg tablet 1,000 mg (2 x 500 mg) PO Q8H #30 06/08/25 tabs pantoprazole 40 mg tablet,delayed 40 mg PO DAILY@0730 #30 tabs 06/08/25 release levofloxacin 750 mg tablet 750 mg PO .Q48HR 7 days #4 tabs 08/20/25 Allergies Allergy/AdvReac Type Severity Reaction Status Date / Time Penicillins Allergy Contraindic Verified 08/22/25 08:44 ated Sulfa (Sulfonamide Allergy Contraindic Verified 08/22/25 08:44 Antibiotics) ated exenatide (From [place]) AdvReac Intermediate diarrhea Verified 08/22/25 08:44 metformin AdvReac Intermediate diarrhea Verified 08/22/25 08:44 quetiapine (From Seroquel) AdvReac Intermediate Nausea Verified 08/22/25 08:44 amitriptyline AdvReac made my Verified 08/22/25 08:44 face go numb amoxicillin trihydrate (From AdvReac acute Verified 08/22/25 08:44 Augmentin) kidney failure NSAIDS (Non-Steroidal AdvReac stage III Verified 08/22/25 08:44 Anti-Inflamma kidney disease potassium clavulanate (From AdvReac acute Verified 08/22/25 08:44 Augmentin) kidney failure General Stated Complaint: Chest Pain SADE: 3 Exam Narrative Exam Narrative: Gen: Awake and alert, in no apparent distress HEENT: Non-icteric sclera, PERRL Neck: Supple Lungs: No apparent respiratory distress, normal respiratory effort. Lung sounds clear and equal bilaterally without wheezes, rhonchi, rales CV: Appears well perfused, heart with regular rhythm, tachycardic rate, strong distal pulses. No overlying skin changes in the area of the chest pain, no chest wall tenderness to palpation. Abdomen: Non-distended, soft, nontender to palpation without rigidity, rebound, or guarding. MSK: Moves 4 extremities without apparent limitation in ROM. No peripheral edema Skin: Visualized skin without rashes, cyanosis. Neuro: No obvious focal deficits or facial asymmetry. Speaks in full, clear sentences. Psych: Appropriate for situation. Course Vital Signs Vital signs: Vital Signs Temperature 35.8 C L 08/22/25 08:28 Pulse 103 H 08/22/25 08:28 Respiratory Rate 19 08/22/25 08:28 Blood Pressure 94/59 L 08/22/25 08:28 Pulse Oximetry 97 08/22/25 08:28 Temperature 35.8 C L 08/22/25 08:28 Temperature Source Tympanic 08/22/25 08:28 Pulse 103 H 08/22/25 08:28 Respiratory Rate 19 08/22/25 08:28 Blood Pressure 94/59 L 08/22/25 08:28 Blood Pressure Position Supine 08/22/25 08:28 Pulse Oximetry 97 08/22/25 08:28 Oxygen Delivery Method Room Air 08/22/25 08:28 Oxygen Flow Rate 0 08/22/25 08:28 Pain Level 0 08/22/25 08:28 Medical Decision Making This is a 65-year-old female patient presenting for evaluation of chest pain that started around 8 PM last night. My differential includes but is not limited to ACS including STEMI, NSTEMI, unstable angina, certainly considered arrhythmia, pericarditis/myocarditis, aortic pathology. Considered pulmonary abnormalities including pneumonia, bronchitis, pleural effusion, pulmonary edema, reactive airway disease, pneumothorax. The patient has tachycardia and a somewhat pleuritic component to this pain, I considered pulmonary embolism. No GI symptoms or vomiting to suggest Boerhaave's, esophagitis, peptic ulcer disease, pancreatitis. Considered musculoskeletal pathologies including costochondritis, chest wall pain. The patient has already received aspirin, her blood pressure is slightly low in the 90s systolic, and I will hold on administration of nitroglycerin at this time. I will provide the patient with a dose of IV Tylenol escalate to narcotic pain medication if her discomfort persists. I will provide her with a liter of IV fluids for rehydration in the setting of her recent infections and borderline low blood pressure. We will obtain labs to include CBC, CMP, magnesium, troponin, BNP, INR, and given the recent visit with an x-ray showing a potential pneumonia, I feel it reasonable to proceed directly to CT pulmonary embolism study for closer evaluation of the etiology of this patient's chest pain. I obtained and reviewed an EKG, which shows a sinus tachycardia without evidence of ischemia, interval abnormality, or ectopy. There are no significant changes from the prior obtained a few days ago. -While this patient was in the emergency department I did receive a final urine culture from her urinalysis obtained 2 days ago at her last visit. She is growing greater than 100,000 colonies of E. coli, and is noted to be resistant to levofloxacin, the antibiotic which she was started on 2 days ago. Given this antibiotics appropriateness for her comorbid pneumonia, I believe it reasonable for her to continue the last 2 doses of her course at home. We will consider alternatives as part of today's visit, ceftriaxone is appropriate as would be fosfomycin after reviewing this patient's history of allergies and kidney function depending on her disposition today. - I reviewed the patient's laboratory studies, which show no leukocytosis, the patient does have an anemia to 9.6 which has been demonstrated on prior laboratory studies, no thrombocytopenia. INR normal, chemistry panel notable for a slightly improving sodium to 130 today compared to prior, no other electrolyte derangements. Kidney function at the patient's baseline with a creatinine of 1.22. No evidence of liver function abnormalities. BNP is unchanged from most recent prior at 800, no evidence of fluid overload on physical examination is reassuring and the patient had preserved ejection fraction on her most recent nuclear med study. Troponin is negative and without interval increase on 1 hour delta recheck, reassuring against active ischemia. Lipase is low. On reassessment the patient reports that her chest pain has resolved, she was having some worsening back pain which is chronic for her, I provided her with a dose of morphine to good effect. I reviewed the patient's CT of her chest, which does not show any blood clots, nor concerning consolidations in the lungs. This is suggestive that the left lower lobe pneumonia which was appreciated on x-ray is likely improving with the levofloxacin and I counseled her to continue this medication in its entirety. Given the resistant E. coli UTI, the decision was made to provide the patient with a one-time dose of fosfomycin for treatment. I counseled the patient on the unknown nature of her chest pain today, though I am suspicious given her recent respiratory illness that this may be a contributing cause. She understands that she needs to follow-up with her primary care provider for further workup and diagnostics. At this time, the patient has had a full medical evaluation and is safe for discharge to home. They are hemodynamically stable, ambulatory, and tolerating PO. They are understanding of the follow-up plan and return precautions. They left our facility without incident. Sugey Gleason MD Quality:SDOH Health Related Social Needs: Health related social needs transpo insecurity lonely/isolated Health related social needs details Pt declines any assistance or services at this time. PFSH All Active Problems (Updated 08/22/25 @ 11:40 by Sugey Gleason MD) Hyponatremia (Acute) Chest pain of uncertain etiology (Acute) Pneumonia involving left lung (Acute) Urinary tract infection (Acute) Osteoarthritis of right hip (Acute) Orthostatic hypotension (Acute) Benzodiazepine dependence, episodic (Acute) Chronic back pain greater than 3 months duration (Acute) Opioid use disorder, moderate, dependence (Acute) Musculoskeletal chest pain (Acute) Anticoagulated (Acute) Fall (Acute) Pain in rib (Acute) Hyperglycemia (Acute) Acute adrenal insufficiency (Acute) URI (upper respiratory infection) (Acute) Headache (Acute) Urinary tract infection (Acute) Atypical chest pain (Acute) Hypomagnesemia (Acute) COVID-19 (Acute) Coronary artery disease (Chronic) Chest pain (Acute) CAD (coronary atherosclerotic disease) (Acute) 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 (Acute) Primary osteoarthritis of both first carpometacarpal joints (Acute 12/22/17) Hypertension (Chronic) Insomnia (Acute) GERD (gastroesophageal reflux disease) (Chronic) Chronic kidney disease (Chronic) COPD (chronic obstructive pulmonary disease) (Chronic) Mixed anxiety depressive disorder (Acute) Medical History Fibromyalgia Panic disorder Mental disorder Pernicious anemia Proliferative retinopathy due to DM 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 Epigastric pain Diarrhea Wheezing Dupuytren's disease of palm Low back pain CKD stage 3 due to type 2 diabetes mellitus Acute exacerbation of chronic obstructive airways disease Allergic rhinitis 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 Insomnia Surgical History H/O lumpectomy Hx of tubal ligation section x2. No complications. Coronary Stent Cholecystectomy Appendectomy Family History Brother Diabetes Hypertension Heart disease Stroke Obesity Chronic headaches Arthritis Brother Arthritis Chronic headaches Diabetes Heart disease Hypertension Obesity Stroke Father Heart disease Stroke Hypertension Chronic headaches Sister Diabetes Obesity Osteoporosis Daughter Migraine Obesity Brother Arthritis Diabetes Chronic headaches Hypertension Obesity Stroke Mother Asthma Arthritis Diabetes Obesity Stroke Glaucoma Social History Smoking/Tobacco Use Status: Former Tobacco Use Quit Date: 04/13/19 Pack-years: 45 Tobacco: How many years used: 45 Quit status: considering quitting Smoking risk assessment performed?: Yes Alcohol Intake: never Drug use: Never Substance use type: does not use Details: Quit smoking 6 years ago. Household members: friend(s) Housing: apartment Number of Children: 3 number of grandchildren: 14 current occupation: none What is your relationship status?: Panel score (0-1 are the most socially isolated patients): 0 What type of physical activity do you participate in: none Do you feel safe at home: Yes Do you feel safe in your relationship?: Yes
[2025-08-22] MEDS: Omnipaque 350 MG/ML 100 ML BTL IJ (09:32)
[2025-08-22] MEDS: Normal Saline - Diluent 50 ML VIAL IJ (09:33)
[2025-08-22 09:38] LABS: Abs Immature Grans 0.04 10^3/uL (0.0-0.06); HCT 27.9 % (36.0-46.0); HGB 9.6 g/dL (11.2-15.7); Immature Grans % 0.8 %; MCH 31.2 pg (27.0-33.0); MCHC 34.4 % (32.0-36.0); MCV 91 fL (80-95); MPV 8.6 fL (8.0-11.0); Platelet Count 270 10^3/uL (130-400); RBC 3.08 10^6/uL (3.93-5.22); RDW 12.9 % (11.7-14.6); RDW-SD 42.5 fL; WBC 5.28 10^3/uL (4.4-10.8)
[2025-08-22 09:48] LABS: INR 0.9 (0.9-1.1); Prothrombin Time 9.3 sec (9.1-11.1)
[2025-08-22 09:54] LABS: Troponin I 9 ng/L (<35)
[2025-08-22 09:57] LABS: ALT 13 U/L (10-49); AST 15 U/L (<34); Albumin 3.5 g/dL (3.2-5.0); Alkaline Phosphatase 76 U/L (46-116); Anion Gap 7.2 mmol/L (3-11); BUN 15 mg/dL (9-23); Bilirubin, Total 0.5 mg/dL (0.2-1.2); CO2 25.2 mmol/L (20.0-31.0); Calcium 8.7 mg/dL (8.3-10.6); Chloride 98 mmol/L (98-107); Glucose 122 mg/dL (74-106); Lipase 16 U/L (<53); Magnesium 1.7 mg/dL (1.6-2.6); Potassium 4.2 mmol/L (3.5-5.1); Sodium 130 mmol/L (136-145); Total Protein 5.8 g/dL (5.7-8.2)
[2025-08-22] MEDS: Lactated Ringers 1,000 ML 1000 ML IV (10:15)
[2025-08-22] MEDS: ACETAMINOPHEN 1,000 MG/100 ML BAG 400 MG IVPB (10:15)
[2025-08-22 11:11] LABS: Troponin I 11 ng/L (<35)
[2025-08-22] MEDS: MORPHine 10 MG/ML VIAL 4 MG IVP (11:17)
[2025-08-22] MEDS: Fosfomycin Tromethamine 3 GM PACKET PO (11:20)
--- NOTE | 2025-08-27 07:31 | NUR.NOTE ---
Access chart to reconcile EKG orders with EKG's in [facility]. Duplicate order cancelled. Nursing Note:
== END 2025-08-22 12:03 | disposition home or self-care (01) ==
PROVIDERS: Emergency Provider Emergency Medicine; PCP Nurse Practitioner Family
DX: R07.9 Chest pain, unspecified (principal); N39.0 Urinary tract infection, site not specified
CPT/HCPCS: 99284; 99285; 96375; 71275; 80053; 83690; 93005; 96365; 83735; 83880; 84484; 85025; 85610; 93010; J0131; J2270; J3490